=== PATIENT | female | born 1940 | race Caucasian/White ===

== ENCOUNTER 2023-01-13 12:01 | Outpatient (OUT) | payer MEDICARE, OTHER, SELFPAY | END 2023-01-13 12:02 | disposition home or self-care (01) | LOC: LAB 12:05 | PROVIDERS: PCP Family Medicine; Visit Provider Family Medicine | DX: E55.9 Vitamin D deficiency, unspecified (principal) | CPT/HCPCS: 36415; 82306 ==

== ENCOUNTER 2023-02-21 13:45 | Outpatient (RCR) | payer MEDICARE, OTHER, SELFPAY | END 2023-03-26 16:31 | disposition home or self-care (01) | LOC: PT 13:45 | PROVIDERS: PCP Family Medicine; Visit Provider Orthopaedic Surgery Orthopaedic Trauma | DX: M25.552 Pain in left hip (principal); S76.012D Strain of muscle, fascia and tendon of left hip, subsequent encounter; M48.061 Spinal stenosis, lumbar region without neurogenic claudication | CPT/HCPCS: 20561; 97012; 97110; 97140; 97161 ==

== ENCOUNTER 2023-03-03 16:08 | Outpatient (OUT) | payer MEDICARE, OTHER, SELFPAY ==
[2023-03-03 16:46] LABS: Basophils Percent Auto 0.4 % (0.2-2.0); Eosinophils Absolute Auto 0.3 10^3/uL (0.0-0.7); Eosinophils Percent Auto 4.5 % (0.9-7.0); Hematocrit 38.1 % (36.0-48.0); Hemoglobin 12.6 g/dL (12.0-16.0); Immature Granulocytes Abs Auto 0.01 10^3/uL (0.00-0.03); Immature Granulocytes Pct Auto 0.2 % (0.0-0.5); Lymphocytes Absolute Auto 1.3 10^3/uL (1.2-3.8); Mean Corpuscular HGB Conc 33.1 g/dL (29.9-35.2); Mean Corpuscular Hemoglobin 29.9 pg (26.7-34.0); Mean Corpuscular Volume 90.3 fL (81.0-99.0); Mean Platelet Volume 10.2 fL (9.5-13.5); Monocytes Absolute Auto 0.4 10^3/uL (0.3-0.8); Monocytes Percent Auto 7.7 % (1.7-12.0); Neutrophils Absolute Auto 3.6 10^3/uL (1.4-6.5); Neutrophils Percent Auto 64.2 % (43.0-75.0); Platelet Count 180 10^3/uL (150-450); Red Blood Count 4.22 10^6/uL (4.20-5.40); Red Cell Distribution Width 12.4 % (11.0-15.0); White Blood Count 5.6 10^3/uL (4.0-11.0)
[2023-03-03 17:19] LABS: Anion Gap 10.4; BUN Creatinine Ratio 20.7; Calcium 10.3 mg/dL (8.5-10.1); Carbon Dioxide 28.5 mmol/L (21.0-32.0); Chloride 106 mmol/L (98-107); Estimated GFR (African America >60 (>=60); Estimated GFR (Non-African Ame >60 (>=60); Glucose 107 mg/dL (74-106); Potassium 3.9 mmol/L (3.5-5.1); Sodium 141 mmol/L (136-145); Thyroid Stimulating Hormone 2.583 uIU/mL (0.358-3.740)
[2023-03-03 17:40] LABS: Free T4 0.95 ng/dL (0.76-1.46)
== END 2023-03-03 16:09 | disposition home or self-care (01) ==
LOC: LAB 16:11
PROVIDERS: PCP Family Medicine; Visit Provider Family Medicine
DX: R53.82 Chronic fatigue, unspecified (principal); T14.8XXA Other injury of unspecified body region, initial encounter; E03.9 Hypothyroidism, unspecified
CPT/HCPCS: 36415; 80048; 84439; 84443; 85025

== ENCOUNTER 2023-03-31 15:04 | Outpatient (OUT) | payer MEDICARE, OTHER, SELFPAY ==
[2023-03-31 16:15] LABS: Calcium 9.8 mg/dL (8.5-10.1)
[2023-04-02 12:10] LABS: PTH, Intact 33 pg/mL (15-65)
== END 2023-03-31 15:05 | disposition home or self-care (01) ==
PROVIDERS: PCP Family Medicine; Visit Provider Family Medicine
DX: E83.52 Hypercalcemia (principal)
CPT/HCPCS: 36415; 82310; 83970

== ENCOUNTER 2023-06-16 15:01 | Outpatient (RCR) | payer MEDICARE, OTHER, SELFPAY | END 2023-07-11 16:05 | disposition home or self-care (01) | LOC: PT 15:01 | PROVIDERS: PCP Family Medicine; Visit Provider Orthopaedic Surgery Orthopaedic Trauma | DX: M25.552 Pain in left hip (principal); S76.012D Strain of muscle, fascia and tendon of left hip, subsequent encounter; M54.50 Low back pain, unspecified | CPT/HCPCS: 97035; 97140; 97161 ==

== ENCOUNTER 2023-07-02 14:33 | Outpatient (OUT) | payer MEDICARE, OTHER, SELFPAY ==
--- OUTSIDE RECORDS SUMMARY | 2023-07-02 14:42 | XMS_ITS | CCD ---
Author Name Unknown Address [address] [place] [address] Organization [facility] Care Team Providers Care Pst Specialist Name Role Phone Jessica Maxwell MD Primary Care Provider Jayant Ambrocio Unavailable Jeb Salas Unavailable PROVIDER, UNKNOWN Admitting Unavailable PROVIDER, UNKNOWN Attending Unavailable Jessica Maxwell MD Primary Care Provider MITALI NARAYAN Consulting Unavailable JESSICA MAXWELL Primary Care Unavailable MITALI NARAYAN Admitting Unavailable MITALI NARAYAN Attending Unavailable MITALI NARAYAN MD Consulting Unavailable EDIN ELDER Attending Unavailable VIVIAN DAMON Referring Unavailable JESSICA MAXWELL Primary Care Unavailable Jessica Maxwell Unavailable DO Jeb Salas Attending Provider [phone] Jeb Salas Admitting Unavailable Jeb Salas Attending Unavailable ALISSA, DR JESSICA Hale Admitting Unavailable ALISSA, DR JESSICA Hale Attending Unavailable ALISSA, DR JESSICA Hale Primary Care Unavailable ALISSA, DR JESSICA Hale Admitting Unavailable ALISSA, DR JESSICA Hale Primary Care Unavailable ALISSA, DR JESSICA Hale Attending Unavailable JEB SALAS Admitting Unavailable JEB SALAS Attending Unavailable ALISSA, DR JESSICA Hale Primary Care Unavailable SHRUTHI ANTON Admitting Unavailable MR JACE MINOR Consulting Unavailable ALISSA, DR JESSICA Hale Primary Care Unavailable SHRUTHI ANTON Attending Unavailable SHRUTHI ANTON Consulting Unavailable MANUEL KOCH Consulting Unavailable SHAHZAD TOMAS Consulting Unavailable FELIPA HOPPER Consulting Unavailable ALISSA, DR JESSICA Hale Attending Unavailable YOBANY, DR MANUEL Lagos Consulting Unavailable ALISSA, DR JESSICA Hale Primary Care Unavailable DR JESSICA MAXWELL Admitting Unavailable DR JESSICA MAXWELL Consulting Unavailable ALISSA, DR JESSICA Hale Admitting Unavailable DR JESSICA MAXWELL Attending Unavailable DR JESSICA MAXWELL Consulting Unavailable DR JESSICA MAXWELL Primary Care Unavailable DR JAYANT AMBROCIO Admitting Unavailable DR JESSICA MAXWELL Primary Care Unavailable DR JAYANT AMBROCIO Attending Unavailable Allergies Allergy Classification Reported Allergen(s) Allergy Type Date of Onset Reaction(s) Facility (19 sources) Sulfonamides (Antibiotic) Drug Intolerance 04-18-20 14 [facility] (1 source) sulfaSALAzine Drug Allergy Unknown [employer] Other (1 source) Sulfonamides (Antibiotic) Propensity to adverse reactions to drug 04-14-20 22 [facility] (2 sources) Sulfonamides (Antibiotic) Drug allergy (disorder) 12-15-19 13 [facility] (11 sources) celecoxib Drug Allergy 05-24-20 13 Unknown [employer] Other (1 source) patient allergy list reviewed by nurse or physicia Propensity to adverse reactions 02-03-20 19 Comment:Done [employer] Other (1 source) Allergies Reconciled Propensity to adverse reactions Unknown [employer] Other Medications Current Medications Medication Drug Class(es) Dates Sig (Normalized) Sig (Original) acetaminophen 500 mg oral tablet (5 sources) Start: 04-14-2022 acetaminophen (TYLENOL) tablet 1,000 mg take 1 tablet by mouth every six hours Tylenol Extra Strength 500 MG 1 tablet as needed Orally every 6 hrs Not-Taking/PRN clonazePAM 0.5 mg oral tablet (20 sources) Benzodiazepine Start: 06-16-2023 take 1 tablet by mouth twice daily as needed clonazePAM 0.5 MG TAKE 1 TABLET BY MOUTH TWICE A DAY NEEDED for Jun, Active Start: 02-18-2023 take 1 tablet by corby twice daily as needed clonazePAM 0.5 MG TAKE 1 TABLET BY MOUTH TWICE A DAY NEEDED for Feb, Active Start: 10-16-2022 take 1 tablet by corby th twice daily as needed clonazePAM 0.5 MG TAKE 1 TABLET BY MOUTH TWICE A DAY NEEDED for October, Active Start: 09-05-2022 take 1 tablet by corby twice daily as needed clonazePAM 0.5 MG TAKE 1 TABLET BY MOUTH TWICE A DAY NEEDED for 30 30 Aug, 2022 Active Start: 07-29-2022 clonazePAM 0.5 MG TAKE 1 TABLET BY MOUTH TWICE A DAY NEEDED FOR 30 DAYS for 30 20 Jul, 2022 Active Start: 04-15-2022 take 0.25 mg by mout h three times daily as needed 0.25 mg, Oral, 3 TIMES DAILY PRN, Starting on 04/15/22 at 0013, Until Discontinued, Anxiety, facial tic Start: 01-24-2020 take 1 tablet by corby th every twelve hours as needed clonazePAM (KLONOPIN) 0.5 mg tablet Take 0.5 mg by mouth twice daily as needed. 0 01/24/2020 Active take 0.25 mg by mout h three times daily as needed clonazePAM (KLONOPIN) 0.5 MG tablet Take 0.25 mg by mouth 3 times daily as needed. 0 Active take 1 tablet by corby th every twenty-four hours clonazePAM 0.5 MG 1 tablet at bedtime Orally Once a day Active Comment on above: Take 0.5 mg by mouth twice daily as needed. clopidogrel 75 mg oral tablet (8 sources) P2Y12 Platelet Inhibitor Start: 04-29-2022 take 1 tablet by mouth once daily clopidogrel (PLAVIX) 75 MG tablet Take 1 tablet by mouth daily Hold plavix x 2 weeks . Follow up with primary providers 30 tablet 3 04/29/2022 Active End: 04-15-2022 take 1 tablet by mouth every twenty-four hours Clopidogrel Bisulfate 75 MG 1 tablet Orally Once a day Active hydrocortisone 25 mg/ml topi raisa cream (8 sources) Corticosteroid Hydrocortisone ( Perianal) 2.5 % APPLY TO AFFECTED AREA 1-2 TIMES DAILY NEEDED for 15 Active Hydrocortisone ( Perianal) 2.5 % APPLY TO AFFECTED AREA 1-2 TIMES DAILY NEEDED for 15 Active ipratropium bromide 0.042 mg/actuat metered dose nasal spray (20 sources) Anticholinergic take 2 spray(s) nasal route once daily Ipratropium [place] 0.06 % 2 sprays in each nostril Nasally Once a Day for 30 days Active take 2 spray(s) nasal route once daily Ipratropium [place] 0.06 % 2 sprays in each nostril Nasally Once a Day for 30 days Active take 2 spray(s) nasa l route three times daily Ipratropium [place] 0.06 % 2 sprays in e ach nostril Nasally Three times a day Active take 2 spray(s) nasa l route four times daily ipratropium (ATROVENT) 0.06 % nasal spra y 2 sprays by Each Nostril route 4 times daily 0 Active ipratropium brom alex (ATROVENT) 42 mcg (0.06 %) nasal spray Use 2 Sprays in the nose once daily. 0 Active Comment on above: Use 2 Sprays in the nose once daily. meloxicam 15 mg oral tablet (6 sources) Nonsteroidal Anti-inflammatory Drug take 1 tablet by mouth every twenty-four hours Meloxicam 15 MG 1 tablet Orally Once a day for 30 days Active metoprolol tartrate 25 mg oral tablet (20 sources) beta-Adrenergic Yuki Start: 2 take 25 mg by mouth twice daily 25 mg, Oral, 2 TIMES DAILY, First dose on Fri04/16/22 at 0900, Until Discontinued Start: 10-07-2018 metoprolol tar trate, short acting, (LOPRESSOR) 25 mg tablet Take 12.5 mg by mouth twice daily. 0 10/07/2018 Active take 1 tablet by corby th every twelve hours Metoprolol Tartrate 25 MG 1 tablet with food Orally Twice a day Active Comment on above: Take 12.5 mg by mout h twice daily. ondansetron (ZOFRAN-ODT) disintegrating tablet 4 mg (1 source) Start: 04-14-2022 ondansetron (ZOFRAN-ODT) disintegrating tablet 4 mg polyethylene glycol 3350 [id number] mg powder for oral solution (1 source) Osmotic Laxative Start: 04-14-2022 polyethylene glycol (GLYCOLAX) packet 17 g sennosides, mcc 8.6 mg oral tablet (1 source) Start: 04-14-2022 senna (SENOKOT) tablet 8.6 mg terbinafine (6 sources) Allylamine Antifungal Terbinafin e Active Completed/Discontinued Medications Medication Drug Class(es) Dates Sig (Normalized) Sig (Original) ALPRAZolam 0.25 mg oral tablet (1 source) Benzodiazepine take 1 tablet by mouth three times daily ALPRAZolam (XANAX) 0.25 mg tablet Take 0.25 mg by mouth three times daily. 0 Active Comment on above: Take 0.25 mg by mout h three times daily. aspirin 81 mg delayed release oral tablet (20 sources) Platelet Aggregation Inhibitor, Nonsteroidal Anti-inflammatory Drug Start: 10-05-2021 take 1 tablet by mouth every twelve hours Aspirin 81 MG 1 tablet Orally BID for 14 days Sep, Not-Taking/PRN take 1 tablet by mouth once chelsea y aspirin, enteric coated (ASPIRIN, ENTERIC COATED) 81 mg EC tablet Take 81 mg by mouth once daily. 0 Active Comment on above: Take 81 mg by mouth once daily. bisacodyl 5 mg delayed release oral tablet (1 source) Stimulant Laxative Start: 01-13-20 bisacodyl EC (DULCOLAX) 5 mg EC tablet as directed. 0 01/13/2020 Active Comment on above: as directed. calcium carbonate 1250 mg / cholecalciferol 200 unt oral tablet (1 source) Vitamin D take 2 tablets by mouth twice daily [id number] tamin D3 500 mg(1,250mg) -200 unit per tablet Take 2 tablets by mouth twice daily. 0 Active Comment on above: Take 2 tablets by mo [facility] twice daily. donepezil hydrochloride 10 mg oral tablet (1 source) Start: 10-18-19 take 1 tablet by mouth once daily donepezil (ARICEPT) 10 mg tablet Take 10 mg by mouth once daily. 0 10/18/2019 Active Comment on above: Take 10 mg by mouth once daily. ferrous sulfate 325 mg oral tablet (1 source) take 1 tablet by mouth twice daily ferrous sulfate 325 mg (65 mg iron) tablet Take 325 mg by mouth twice daily. 0 Active Comment on above: Take 325 mg by mouth twice daily. iopamidol (ISOVUE-370) 76 % injection 130 mL (1 source) Start: 04-14-20 End: 04-14-20 iopamidol (ISOVUE-370) 76 % injection 130 mL levothyroxine sodium 0.05 mg oral tablet (20 sources) l-Thyroxine Start: 04-15-20 take 50 ug by mouth once daily 50 mcg, Oral, DAILY, First dose on Fri04/15/22 at 0700, Until Discontinued Tube feeding (TF) interaction, obtain physician order to manage, recommend holding TF for 30 minutes before and after dose. take 1 tablet by corby th once daily in the morning Levothyroxine Sodium 50 MCG 1 tablet in the morning on an empty stomach Orally Once a day Active Comment on above: Take 50 mcg by mouth daily before breakfast. liothyronine sodium 0.005 mg oral tablet (20 sources) l-Triiodothyronine Start: 2 take 5 ug by mouth once daily 5 mcg, Oral, DAILY, First dose on Fri04/15/22 at 0900, Until Discontinued take 1 tablet by corby every twenty-four hours Liothyronine Sodium 5 MCG 1 tablet on an empty stomach Orally Once a day Active OTC PRODUCT (2 sources) OTC PRODUCT Kenz en BDZ Support Strength and Density 2 tablets once a day at bedtime 0 Active OTC PRODUCT 1 ta blet three times daily. Strophantil 0 Active Comment on above: Kenzen BDZ Support S trength and Density 2 tablets once a day at bedtime 1 tablet three times daily. Strophantil pantoprazole 40 mg delayed release oral tablet (1 source) Proton Pump Inhibitor take 1 tablet by mouth once daily pantoprazole DR (PROTONIX) 40 mg tablet Take 40 mg by mouth once daily. 0 Active Comment on above: Take 40 mg by mouth once daily. 1000 ml sodium chloride 9 mg/ml injection (4 sources) Start: 2 sodium chloride flush 0.9 % injection 5-40 mL Start: 04-14-2022 End: 04-15-2022 0.9 % sodium chloride infusi on spironolactone 25 mg oral tablet (20 sources) Aldosterone Antagonist Start: 11-17-2019 take 25 mg by mouth once daily 25 mg, Oral, DAILY, First dose on Fri04/15/22 at 0900, Until Discontinued Comment on above: Take 25 mg by mouth once daily. Tylenol Extra Strength 500 MG (15 sources) take 1 tablet by mouth every six hours as needed Tylenol Extra Strength 500 MG 1 tablet as needed Orally every 6 hrs Not-Taking take 1 tablet by corby th every six hours as needed Tylenol Extra Strength 500 MG 1 tablet a s needed Orally every 6 hrs Active warfarin sodium 10 mg oral tablet (1 source) Vitamin K Antagonist Start: 11-11-2019 warfarin (COUMADIN) 10 mg tablet 10mg alternating with 15mg nightly 0 11/11/2019 Active Comment on above: 10mg alternating wit h 15mg nightly Problems Active Problems Problem Classification Problem Date Documented Da te Episodic/Chronic Abdominal pain (2 sources) Generalized abdominal pain; 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: [Generalized abdominal pain] Onset: 5 Episodic Acute cerebrovascular disease (3 sources) Hematoma of subdural space of neuraxis; 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: [Subdural hematoma] Onset: 2 Chronic Anxiety disorders (3 sources) Generalized anxiety disorder; 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: [Generalized anxiety disorder] Onset: 5 Chronic Cardiac dysrhythmias (4 sources) Atrial fibrillation; 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: [Unspecified atrial fibrillation] Onset: 9 11-18-2019 Chronic Coagulation and hemorrhagic disorders (1 source) Spontaneous ecchymosis; 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: [Spontaneous ecchymoses] Episodic Complications of surgical procedures or medical care (1 source) Postoperative hypothyroidism; 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: [Postprocedural hypothyroidism] Onset: 5 Chronic Deficiency and other anemia (1 source) Iron deficiency anemia due to blood loss; 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: [Iron deficiency anemia secondary to blood loss (chronic)] Onset: 0 01-13-2020 Chronic Delirium, dementia, and amnestic and other cognitive disorders (1 source) Unspecified dementia without behavioral disturbance; 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: [UNSP GABRIELLA UNS SEV W/O DSTRB ANXTY] Onset: 2 Chronic E Codes: Natural/environment (1 source) Dog bite; 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: [Bitten by dog, initial encounter] Episodic Essential hypertension (20 sources) Essential hypertension; 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: [Essential (primary) hypertension] Onset: 4 Chronic Heart valve disorders (3 sources) Nonrheumatic mitral (valve) insufficiency; 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: [Rheumatic disease of mitral valve] Onset: 9 Chronic Hemorrhoids (1 source) Thrombosed hemorrhoids; 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: [Perianal venous thrombosis] Episodic Malaise and fatigue (20 sources) Fatigue; 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: [Chronic fatigue, unspecified] Chronic Malaise and fatigue (5 sources) Other fatigue; 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: [Fatigue] Onset: 2 Episodic Nonspecific chest pain (2 sources) Chest pain; 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: [Chest pain, unspecified] Onset: 8 Episodic Nutritional deficiencies (18 sources) Vitamin D deficiency, unspecified; 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: [Vitamin D deficiency] Onset: 2 Chronic Osteoarthritis (20 sources) Osteoarthritis of right hip joint; 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: [Unilateral primary osteoarthritis, right hip] Chronic Osteoporosis (1 source) Primary osteoporosis; 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: [Age-related osteoporosis without current pathological fracture] Chronic Other connective tissue disease (1 source) Neuralgia; 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: [Neuralgia and neuritis, unspecified] Episodic Other connective tissue disease (1 source) Pain in limb; 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: [Pain in left lower leg] Episodic Other connective tissue disease (1 source) Myalgia, other site Episodic Other ear and sense organ disorders (1 source) Impacted cerumen; 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: [Impacted cerumen, unspecified ear] Episodic Other female genital disorders (1 source) Noninflammatory disorder of the vagina; 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: [Other specified noninflammatory disorders of vagina] Episodic Other female genital disorders (1 source) Hypertrophy of uterus; 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: [Hypertrophy of uterus] Episodic Other female genital disorders (1 source) Disorder of female genital organs; 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: [Unspecified condition associated with female genital organs and menstrual cycle] Episodic Other gastrointestinal disorders (1 source) Irritable bowel syndrome with diarrhea; 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: [Irritable bowel syndrome with diarrhea] Onset: 7 Chronic Other hereditary and degenerative nervous system conditions (1 source) Drug-induced tardive dystonia; 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: [Drug induced subacute dyskinesia] Episodic Other inflammatory condition of skin (1 source) Itching of skin; 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: [Pruritus, unspecified] Episodic Other injuries and conditions due to external causes (1 source) Other injury of unspecified body region, initial encounter Episodic Other liver diseases (1 source) Large liver; 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: [Hepatomegaly, not elsewhere classified] Episodic Other non-traumatic joint disorders (6 sources) Pain in left hip; 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: [PAIN IN LEFT HIP] Onset: 3 Episodic Other non-traumatic joint disorders (1 source) Arthralgia of the lower leg; 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: [Pain in right knee] Episodic Other non-traumatic joint disorders (1 source) Pain in right hip joint; 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: [Pain in right hip] Episodic Other nutritional; endocrine; and metabolic disorders (2 sources) Hypercalcemia; 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: [HYPERCALCEMIA] Onset: 2 Chronic Other nutritional; endocrine; and metabolic disorders (10 sources) Hypercalcemia; 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: [Hypercalcemia] Onset: 7 Chronic Other screening for suspected conditions (not mental disorders or infectious disease) (1 source) Encounter for screening mammogram for malignant neoplasm of breast Episodic Other upper respiratory disease (1 source) Other specified disorders of nose and nasal sinuses; 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: [Other specified disorders of nose and nasal sinuses] Episodic Residual codes; unclassified (1 source) Family history of malignant neoplasm of gastrointestinal tract; 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: [Family history of malignant neoplasm of digestive organs] Episodic Screening and history of mental health and substance abuse codes (1 source) Encounter for screening examination for other mental health and behavioral disorders; 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: [Encounter for screening examination for other mental health and behavioral disorders] Episodic Skin and subcutaneous tissue infections (1 source) Cellulitis and abscess of hand excluding digits; 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: [Cellulitis and abscess of hand, except fingers and thumb] Episodic Spondylosis; intervertebral disc disorders; other back problems (1 source) Other intervertebral disc displacement, lumbosacral region; 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: [OTH IV DISC DISPLACEMENT LS REGION] Onset: 3 Chronic Spondylosis; intervertebral disc disorders; other back problems (8 sources) Sciatica, left side; 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: [Cervicalgia] Onset: 5 Episodic Sprains and strains (1 source) Strain of muscle, fascia and tendon of left hip, subsequent encounter Episodic Superficial injury; contusion (2 sources) Contusion of other part of head, initial encounter; 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: [Contusion of hand] Onset: 2 Episodic Thyroid disorders (13 sources) Hypothyroidism, unspecified; 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: [Hypothyroidism] Onset: 2 Chronic Transient cerebral ischemia (1 source) Transient cerebral ischemia; 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: [Unspecified transient cerebral ischemia] Onset: 9 Chronic Unclassified (3 sources) Traumatic subdural hemorrhage with loss of consciousness status unknown, initial encounter; 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: [Traumatic subdural hemorrhage with loss of consciousness status unknown, initial encounter] Onset: 2 Unclassified (1 source) Pain in left hip; 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: [Pain in left hip] Onset: 3 Unclassified (1 source) LOW BACK PAIN, UNSPECIFIED; 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: [LOW BACK PAIN, UNSPECIFIED] Onset: 3 Unclassified (1 source) CONTACT W/AND (SUSP) EXPOS COVID-19; 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: [CONTACT W/AND (SUSP) EXPOS COVID-19] Onset: 2 Viral infection (1 source) Disease caused by 2019-nCoV; 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: [COVID-19] Past or Other Problems Problem Classification Problem Date Documented Da te Episodic/Chronic Allergic reactions (1 source) Allergic contact dermatitis; 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: [Allergic contact dermatitis, unspecified cause] Onset: 7 Episodic Diabetes mellitus without complication (1 source) Hyperglycemia; 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: [Hyperglycemia, unspecified] Onset: 9 Episodic E Codes: Fall (1 source) Fall on same level from slipping, tripping and stumbling with subsequent striking against other object, initial encounter; 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: [FALL SAME LVL SLIP STRK OTH OBJ INT] Onset: 2 Episodic Headache; including migraine (1 source) Headache; 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: [Headache, unspecified] Onset: 5 Episodic Immunizations and screening for infectious disease (1 source) Encounter for immunization; 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: [ENCOUNTER FOR IMMUNIZATION] Onset: 2 Episodic Inflammatory diseases of female pelvic organs (1 source) Acute vaginitis; 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: [Acute vaginitis] Onset: 3 Episodic Intracranial injury (1 source) Traumatic subdural hemorrhage with loss of consciousness of 30 minutes or less, initial encounter; 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: [TRAUM SUBDURAL HEM LOC 30 MN/< INIT] Onset: 2 Episodic Open wounds of head; neck; and trunk (1 source) Laceration without foreign body of oral cavity, initial encounter; 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: [LACERATION W/O FB ORAL CAV INIT ENC] Onset: 2 Episodic Other aftercare (1 source) Anticoagulant effect; 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: [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] Onset: 0 11-18-2019 Episodic Other aftercare (1 source) [facility] (current) use of antithrombotics/antipl atelets; 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: [[facility] ANTITHROMBOT/ANTIPLATL ETS] Onset: 2 Episodic Other aftercare (1 source) Other group home (current) drug therapy; 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: [OTH [facility] CURRENT DRUG THERAPY] Onset: 2 Episodic Other circulatory disease (1 source) History of transient ischemic attack; 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: [Personal history of transient ischemic attack (TIA), and cerebral infarction without residual deficits] Onset: 0 11-18-2019 Episodic Other connective tissue disease (1 source) Pain in left lower leg; 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: [PAIN IN LEFT LOWER LEG] Onset: 2 Episodic Other female genital disorders (1 source) Dyspareunia; 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: [Unspecified dyspareunia] Resolved: 9 Chronic Other gastrointestinal disorders (1 source) Flatulence, eructation and gas pain; 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: [Abdominal distension (gaseous)] Onset: 6 Episodic Other injuries and conditions due to external causes (3 sources) Unspecified injury of head, initial encounter; 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: [UNSPECIFIED INJURY HEAD INITIAL ENC] Onset: 2 Episodic Other injuries and conditions due to external causes (1 source) Other specified injuries of head, initial encounter; 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: [OTH SPEC INJURIES HEAD INITIAL ENC] Onset: 2 Episodic Other lower respiratory disease (2 sources) Dyspnea; 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: [Other forms of dyspnea] Onset: 3 Episodic Other lower respiratory disease (1 source) Cough; 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: [Cough] Onset: 4 Episodic Other non-traumatic joint disorders (1 source) Pain in wrist; 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: [Pain in unspecified wrist] Onset: 5 Episodic Other skin disorders (1 source) Disorder of skin and/or subcutaneous tissue; 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: [Disorder of the skin and subcutaneous tissue, unspecified] Onset: 9 Episodic Other upper respiratory infections (3 sources) Acute upper respiratory infection; 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: [Acute upper respiratory infections of unspecified site] Onset: 4 Episodic Phlebitis; thrombophlebitis and thromboembolism (2 sources) Phlebitis and thrombophlebitis of superficial vessels of left lower extremity; 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: [Embolism and thrombosis of superficial veins of left lower extremity] Onset: 2 Resolved: 2 Episodic Residual codes; unclassified (1 source) History of repair of mitral valve; 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: [Other specified postprocedural states] Onset: 0 11-18-2019 Episodic Residual codes; unclassified (1 source) History of tricuspid valve repair; 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: [Other specified postprocedural states] Onset: 0 11-18-2019 Episodic Results Test Name Value Interpretation Reference Range Facility XR femur LT 2V*on 08-21-2022 XR femur LT 2V* [facility] [address] [place] [address] XRay Report Signed Patient: Ayana Alves MR#: [id number] : 1940 Acct:[id number] Age/Sex: 82 / F ADM Date: 08/21/22 [place] [facility] [place] Type: [facility] Attending Dr: Jeb Salas DO Copies to: Jeb Salas DO Ordering Provider: Jeb Salas DO Date of Service: 08/21/22 XR/XR femur LT 2V*: PAIN 2 views LEFTfemur plain film COMPARISON: None HISTORY: LEFT anterior mid back pain for one month ACUTE FINDINGS:None DEGENERATIVE CHANGE:Spurring of the hip joints. Adequate joint space. Spurring of the greater trochanter. Chondrocalcinosis of menisci. SOFT TISSUE FINDINGS:Unremarkabl e JOINT EFFUSION:None POSTOP CHANGES:None BONE MINERALIZATION:Adequ ate Calcified fibroid. XR/XR femur LT 2V* IMPRESSION: Mild LEFT hip degeneration. greater trochanter spurring. Chondrocalcinosis of menisci. Impression dictated by: Pako Sidhu M.D.08/21/2022 3:22 PM Dictation Location: [place] [address] Transcribed By: [facility] 08/21/22 1522 Dictated By: Pako Sidhu DO 08/21/22 1519 Signed By: 08/21/22 1522 Normal [facility] XR femur LT 2V* [facility] [place] Other XR femur LT 2V* [facility] Main [facility] [place] Other XR femur LT 2V* [address] [facility] [place] Other XR femur LT 2V* [place] [address] [facility] [employer] Other XR femur LT 2V* XRay Report [facility] [employer] Other XR femur LT 2V* Signed [employer] Other XR femur LT 2V* Patient: Ayana Alves MR#: [id number] [employer] Other XR femur LT 2V* 484 [employer] Other XR femur LT 2V* : 1940 Acct:[id number] [employer] Other XR femur LT 2V* Age/Sex: 82 / F ADM Date: 08/21/22 [employer] Other XR femur LT 2V* [place] [facility] Type[facility] [employer] Other XR femur LT 2V* Attending Dr: Jeb Salas DO [employer] Other XR femur LT 2V* Copies to: Jeb Salas DO [employer] Other XR femur LT 2V* Ordering Provider: Jeb Salas DO [employer] Other XR femur LT 2V* Date of Service: 08/21/22 [employer] Other XR femur LT 2V* XR/XR femur LT 2V*: PAIN [employer] Other XR femur LT 2V* 2 views LEFTfemur plain film [employer] Other XR femur LT 2V* COMPARISON: None [employer] Other XR femur LT 2V* HISTORY: LEFT anterior mid back pain for one month [employer] Other XR femur LT 2V* ACUTE FINDINGS:None [employer] Other XR femur LT 2V* DEGENERATIVE CHANGE:Spurring of the hip joints. Adequate joint space. Spurring of the greater [employer] Other XR femur LT 2V* trochanter. Chondrocalcinosis of menisci. [employer] Other XR femur LT 2V* SOFT TISSUE FINDINGS:Unremarkabl e [employer] Other XR femur LT 2V* JOINT EFFUSION:None [employer] Other XR femur LT 2V* POSTOP CHANGES:None [employer] Other XR femur LT 2V* BONE MINERALIZATION:Adequ ate [employer] Other XR femur LT 2V* Calcified fibroid. [email or web address] Other XR femur LT 2V* XR/XR femur LT 2V* [employer] Other XR femur LT 2V* IMPRESSION: Mild LEFT hip degeneration. greater trochanter spurring. Chondrocalcinosis of menisci. [employer] Other XR femur LT 2V* Impression dictated by: Pako Sidhu M.D.08/21/2022 3:22 PM [employer] Other XR femur LT 2V* Dictation Location: [place] [address] [employer] Other XR femur LT 2V* Transcribed By: PWS 08/21/22 [facility] [employer] Other XR femur LT 2V* Dictated By: Pako Sidhu DO 08/21/22 [facility] [employer] Other XR femur LT 2V* Signed By: [employer] Other XR femur LT 2V* 08/21/22 [facility] [employer] Other XR hip LT min 2V(w/wo pelvis )*on 08-21-2022 XR hip LT min 2V(w/wo pelvis)* [facility] Main [place] [address] [place] [address] XRay Report Signed Patient: Ayana Alves MR#: [id number] : 1940 Acct:[id number] Age/Sex: 82 / F ADM Date: 08/21/22 [place] [facility] [place]: Type: [facility] Attending Dr: Jeb Salas DO Copies to: Jeb Salas DO Ordering Provider: Jeb Salas DO Date of Service: 08/21/22 XR/XR hip LT min 2V(w/wo pelvis)*: Acute pain of left hip 2 views LEFT hip single view pelvis plain film COMPARISON:None HISTORY:LEFT anterior thigh pain for months. ACUTE FINDINGS:None DEGENERATIVE CHANGE:Adequate hip joint space. Spurring of the greater trochanter. SOFT TISSUE FINDINGS:Unremarkabl e JOINT EFFUSION:None POSTOP CHANGES:None BONY MINERALIZATION:Adequ ate Degenerative calcified fibroid. Lower lumbar fixation hardware. XR/XR hip LT min 2V(w/wo pelvis)* IMPRESSION:Unremarka ble LEFT hip. The greater trochanter spurring. Impression dictated by: Pako Sidhu M.D.08/21/2022 3:24 PM Dictation Location: [place] [address] Transcribed By: [facility] 08/21/22 1524 Dictated By: Pako Sidhu DO 08/21/22 1522 Signed By: 08/21/22 1524 [facility] XR hip LT min 2V(w/wo pelvis)* XR/XR hip LT min 2V(w/wo pelvis)*: Acute pain of left hip [employer] Other XR hip LT min 2V(w/wo pelvis)* 2 views LEFT hip single view pelvis plain film [employer] Other XR hip LT min 2V(w/wo pelvis)* HISTORY:LEFT anterior thigh pain for months. [employer] Other XR hip LT min 2V(w/wo pelvis)* DEGENERATIVE CHANGE:Adequate hip joint space. Spurring of the greater trochanter. [employer] Other XR hip LT min 2V(w/wo pelvis)* BONY MINERALIZATION:Adequ ate [employer] Other XR hip LT min 2V(w/wo pelvis)* Degenerative calcified fibroid. Lower lumbar fixation hardware. [employer] Other XR hip LT min 2V(w/wo pelvis)* XR/XR hip LT min 2V(w/wo pelvis)* [employer] Other XR hip LT min 2V(w/wo pelvis)* IMPRESSION:Unremarka ble LEFT hip. The greater trochanter spurring. [employer] Other XR hip LT min 2V(w/wo pelvis)* Impression dictated by: Pako Sidhu M.D.08/21/2022 3:24 PM [employer] Other XR hip LT min 2V(w/wo pelvis)* Transcribed By: PWS 08/21/22 [facility] [employer] Other XR hip LT min 2V(w/wo pelvis)* Dictated By: Pako Sidhu DO 08/21/22 [facility] [employer] Other XR hip LT min 2V(w/wo pelvis)* 08/21/22 [facility] [employer] Other CT HEAD WO CONTRASTon 2021 CT HEAD WO CONTRAST EXAMINATION: CT OF THE HEAD WITHOUT CONTRAST 04/23/2022 3:06 pm TECHNIQUE: CT of the head was performed without the administration of intravenous contrast. Automated exposure control, iterative reconstruction, and/or weight based adjustment of the mA/kV was utilized to reduce the radiation dose to as low as reasonably achievable. COMPARISON: CT brain performed 04/14/2022. HISTORY: ORDERING SYSTEM PROVIDED HISTORY: Subdural hematoma TECHNOLOGIST PROVIDED HISTORY: Reason for Exam: pt stated headache ,hx of fall week ago , subdural hematoma Additional signs and symptoms: pt stated was life flighted to [facility] from [place] [facility] History: CT done at [place] FINDINGS: BRAIN/VENTRICLES: There is a small amount of subdural hemorrhagic products adjacent to the left temporal lobe measuring 4 mm. There is no mass effect or midline shift. There is satisfactory overall larson-white matter differentiation. The ventricular structures are symmetric. The infratentorial structures are unremarkable. ORBITS: The visualized portion of the orbits demonstrate no acute abnormality. SINUSES: The visualized paranasal sinuses and mastoid air cells demonstrate no acute abnormality. SOFT TISSUES/SKULL: No acute abnormality of the visualized skull or soft tissues. IMPRESSION: Small amount of subdural hemorrhagic products adjacent to the left temporal lobe measuring 4 mm. This is similar in size although in a different location adjacent to the left cerebral hemisphere likely related to redistribution of the blood products. Interpreted by: Don Rahman MD Signed by: Don Rahman MD 04/24/22 Final result Normal [facility] Basic Metab w/rfx MGon 04-15 Anion gap [Moles/Vol] 9 mmol/L Normal 9-17 [facility] Comment on above: Performed By: #### B MPX, CDP #### [facility] [employer] [address] [place] [address] Procurement Intern: Yordan Lr MD Performed By: #### C DP, BMPX ####[facility] [address] [place] [address] Lab Director: Yordan Lr MD Calcium [Mass/Vol] 9.6 mg/dL Normal 8.6-10.4 [facility] Comment on above: Performed By: #### B MPX, CDP #### [facility] [employer] [address] [place] [address] Procurement Intern: Yordan Lr MD Performed By: #### C DP, BMPX ####[facility] [place] [address] Lab Director: Yordan Lr MD Chloride [Moles/Vol] 107 mmol/L Normal 98-[address] [facility] Comment on above: Performed By: #### B MPX, CDP #### [facility] [employer] [address] [place] [address] Procurement Intern: Yordan Lr MD Performed By: #### C DP, BMPX ####[address] [address] Lab Director: Yordan Lr MD CO2 [Moles/Vol] 22 mmol/L Normal 20-31 [facility] Comment on above: Performed By: #### B MPX, CDP #### [address] [address] Procurement Intern: Yordan Lr MD Performed By: #### C DP, BMPX ####[address] [phone] Director: Yordan Lr MD Creatinine [Mass/Vol] 0.74 mg/dL Normal 0.50-0.90 [facility] Comment on above: Performed By: #### B MPX, CDP #### [address] [address] Procurement Intern: Yordan Lr MD Performed By: #### C DP, BMPX ####[address] [address] Lab Director: Yordan Lr MD GFR/1.73 sq M.predicted among non-blacks MDRD (S/P/Bld) [Vol rate/Area] mL/min/{1.73_m2} Normal >60 [facility] Comment on above: Result Comment: Effective Mar 11, 2022 These results are not intended for use in patients <18 years of age. eGFR results are calculated without a race factor using the 2020 CKD-EPI equation. Careful clinical correlation is recommended, particularly when comparing to results calculated using previous equations. The CKD-EPI equation is less accurate in patients with extremes of muscle mass, extra-renal metabolism of creatine, excessive creatine ingestion, or following therapy that affects renal tubular secretion. Performed By: #### B MPX, CDP #### [address] [address] Procurement Intern: Yordan Lr MD Performed By: #### C DP, BMPX ####[address] [address] Lab Director: Yordan Lr MD Glucose [Mass/Vol] 89 mg/dL Normal 70-99 [facility] Comment on above: Performed By: #### B MPX, CDP #### [facility] [place] [address] Procurement Intern: Yordan Lr MD Performed By: #### C DP, BMPX ####[facility] [address] [place] [address] [phone] Director: Yordan Lr MD Potassium [Moles/Vol] 4.1 mmol/L Normal 3.7-5.3 [facility] Comment on above: Performed By: #### B MPX, CDP #### [address] [address] Procurement Intern: Yordan Lr MD Performed By: #### C DP, BMPX ####[address] [address] Lab Director: Yordan Lr MD Sodium [Moles/Vol] 138 mmol/L Normal 135-144 [facility] Comment on above: Performed By: #### B MPX, CDP #### [address] [address] Procurement Intern: Yordan Lr MD Performed By: #### C DP, BMPX ####[facility] [address] [place] [address] [phone] Director: Yordan Lr MD Urea nitrogen [Mass/Vol] 16 mg/dL Normal 8-23 [facility] Comment on above: Performed By: #### B MPX, CDP #### [facility] [address] [place] [address] Procurement Intern: Yordan Lr MD Performed By: #### C DP, BMPX ####[facility] [address] [place] [address] Lab Director: Yordan Lr MD Basic Metabolic Panel w/ Ref dequan to MGon 04-15-2022 Anion gap [Moles/Vol] 9 mmol/L 9 - 17 mmol/L [facility] Calcium [Mass/Vol] 9.6 mg/dL 8.6 - 10. 4 mg/dL [facility] Chloride [Moles/Vol] 107 mmol/L 98 - 10 7 mmol/L [facility] CO2 [Moles/Vol] 22 mmol/L 20 - 31 mmol/L [facility] Creatinine [Mass/Vol] 0.74 mg/dL 0.50 - 0.90 mg/dL [facility] GFR/1.73 sq M.predicted MDRD (S/P/Bld) [Vol rate/Area] - PINF [facility] Comment on above: Effective Mar 11, 2022 These results are not intended for use in patients <18 years of age. eGFR results are calculated without a race factor using the 2020 CKD-EPI equation. Careful clinical correlation is recommended, particularly when comparing to results calculated using previous equations. The CKD-EPI equation is less accurate in patients with extremes of muscle mass, extra-renal metabolism of creatine, excessive creatine ingestion, or following therapy that affects renal tubular secretion. Glucose [Mass/Vol] 89 mg/dL 70 - 99 mg/dL [facility] Potassium [Moles/Vol] 4.1 mmol/L 3.7 - 5.3 mmol/L [facility] Sodium [Moles/Vol] 138 mmol/L 135 - 144 mmol/L [facility] Urea nitrogen (BldV) [Mass/Vol] 16 mg/dL 8 - 23 mg/dL [facility] CBC with Auto Differentialon 04-15-2022 Absolute Eos # 0.14 [facility] Absolute Immature Granulocyte [facility] Absolute Lymph # 1.04 Low [facility] Absolute Prowers # 0.58 [facility] Basophils Absolute [facility] Basophils/100 WBC (Bld) 0 % 0 - 2 % [facility] Eosinophils/100 WBC (Bld) 2 % 1 - 4 % [facility] Hematocrit (Bld) [Volume fraction] 37.9 % 36.3 - 47.1 % [facility] Hemoglobin (Bld) [Mass/Vol] 12.7 g/dL 11.9 - 15.1 g/dL [facility] Immature granulocytes/100 WBC (Bld) 0 % 0 [facility] Interpretation and review of laboratory results Abnormal [facility] Lymphocytes/100 WBC (Bld) 18 % Low 24 - 43 % [facility] MCH (RBC) [Entitic mass] 29.7 pg 25.2 - 33.5 pg [facility] MCHC (RBC) [Mass/Vol] 33.5 g/dL 28.4 - 34.8 g/dL [facility] MCV (RBC) [Entitic vol] 88.6 fL 82.6 - 102.9 fL [facility] Monocytes/100 WBC (Bld) 10 % 3 - 12 % [facility] NRBC Automated 0.0 0.0 per 100 WBC [facility] Platelet distribution width (Bld) [Ratio] 12.6 % 11.8 - 14.4 % [facility] Platelet mean volume (Bld) [Entitic vol] 10.0 fL 8.1 - 13.5 fL [facility] Platelets (Bld) [#/Vol] 161 10*3/uL [facility] RBC (Bld) [#/Vol] 4.28 10*6/uL 3.95 - 5.1 1 m/uL [facility] Segmented neutrophils/100 WBC (Bld) 70 % High 36 - 65 % [facility] Segs Absolute 4.10 [facility] WBC (Bld) [#/Vol] 5.9 10*3/uL [facility] CBC with Diffon 04-15-2022 Abs. Basophil <0.03 Normal 0.00-0.20 [facility] Comment on above: Performed By: #### B MPX, CDP #### [facility] [place] [phone] Procurement Intern: Yordan Lr MD Performed By: #### C DP, BMPX ####[place] [address] Lab Director: Yordan Lr MD Abs.Imm.Granulocyte <0.03 Normal 0.00-0.30 [facility] Comment on above: Performed By: #### B MPX, CDP #### [place] [address] Procurement Intern: Yordan Lr MD Performed By: #### C DP, BMPX ####[place], [place] [address])[phone] Director: Yordan Lr MD Abs.Neutrophil (Seg) 4.10 k/uL Normal 1.50-8.[address] [facility] Comment on above: Performed By: #### B MPX, CDP #### [place] [address] Procurement Intern: Yordan Lr MD Performed By: #### C DP, BMPX ####[place], [place] [address])[phone] Director: Yordan Lr MD Basophils/100 WBC (Bld) 0 % Normal 0-2 [facility] Comment on above: Performed By: #### B MPX, CDP #### [place] [address] Procurement Intern: Yordan Lr MD Performed By: #### C DP, BMPX ####[place], [place] [address])[phone] Director: Yordan Lr MD Eosinophils (Bld) [#/Vol] 0.14 10*3/uL Normal 0.00-0.44 [facility] Comment on above: Performed By: #### B MPX, CDP #### [place] [address] Procurement Intern: Yordan Lr MD Performed By: #### C DP, BMPX ####[address] [address] Lab Director: Yordan Lr MD Eosinophils/100 WBC (Bld) 2 % Normal 1-4 [facility] Comment on above: Performed By: #### B MPX, CDP #### [address] [address] Procurement Intern: Yodran Lr MD Performed By: #### C DP, BMPX ####[address] [address] Lab Director: Yordan Lr MD Erythrocyte distribution width (RBC) [Ratio] 12.6 % Normal 11.8-14.4 [facility] Comment on above: Performed By: #### B MPX, CDP #### [address] [address] Procurement Intern: Yordan Lr MD Performed By: #### C DP, BMPX ####[address] [address] Lab Director: Yordan Lr MD Hematocrit (Bld) [Volume fraction] 37.9 % Normal 36.3-47.1 [facility] Comment on above: Performed By: #### B MPX, CDP #### [place] [address] Procurement Intern: Yordan Lr MD Performed By: #### C DP, BMPX ####[address] [address] Lab Director: Yordan Lr MD Hemoglobin (Bld) [Mass/Vol] 12.7 g/dL Normal 11.9-15.1 [facility] Comment on above: Performed By: #### B MPX, CDP #### [address] [place] [address] Procurement Intern: Yordan Lr MD Performed By: #### C DP, BMPX ####[address] [address] Lab Director: Yordan Lr MD Immature granulocytes/100 WBC (Bld) 0 % Normal 0 [facility] Comment on above: Performed By: #### B MPX, CDP #### [address] [address] Procurement Intern: Yordan Lr MD Performed By: #### C DP, BMPX ####[address] [phone] Director: Yordan Lr MD Lymphocytes (Bld) [#/Vol] 1.04 10*3/uL Low 1.10-3.70 [facility] Comment on above: Performed By: #### B MPX, CDP #### [address] [address] Procurement Intern: Yordan Lr MD Performed By: #### C DP, BMPX ####[address] [phone] Director: Yordan Lr MD Lymphocytes/100 WBC (Bld) 18 % Low 24-43 [facility] Comment on above: Performed By: #### B MPX, CDP #### [address] [address] Procurement Intern: Yordan Lr MD Performed By: #### C DP, BMPX ####[facility] [address] [place] [address] [phone] Director: Yordan Lr MD MCH (RBC) [Entitic mass] 29.7 pg Normal 25.2-33.5 [facility] Comment on above: Performed By: #### B MPX, CDP #### [address] [place] [address] Procurement Intern: Yordan Lr MD Performed By: #### C DP, BMPX ####[address] [phone] Director: Yordan Lr MD MCHC (RBC) [Mass/Vol] 33.5 g/dL Normal 28.4-34.8 [facility] Comment on above: Performed By: #### B MPX, CDP #### [address] [address] Procurement Intern: Yordan Lr MD Performed By: #### C DP, BMPX ####[address] [phone] Director: Yordan Lr MD MCV (RBC) [Entitic vol] 88.6 fL Normal 82.6-102.9 [facility] Comment on above: Performed By: #### B MPX, CDP #### [address] [address] Procurement Intern: Yordan Lr MD Performed By: #### C DP, BMPX ####[address] [phone] Director: Yordan Lr MD Monocytes (Bld) [#/Vol] 0.58 10*3/uL Normal 0.10-1.20 [facility] Comment on above: Performed By: #### B MPX, CDP #### [address] [address] Procurement Intern: Yordan Lr MD Performed By: #### C DP, BMPX ####[address] [phone] Director: Yordan Lr MD Monocytes/100 WBC (Bld) 10 % Normal 3-12 [facility] Comment on above: Performed By: #### B MPX, CDP #### [place] [address] [place] [address] Procurement Intern: Yordan Lr MD Performed By: #### C DP, BMPX ####[place] [address] [place], [place] [phone] Director: Yordan Lr MD Neutrophil (Seg) 70 % High 36-65 [facility] Comment on above: Performed By: #### B MPX, CDP #### [address] [address] Procurement Intern: Yordan Lr MD Performed By: #### C DP, BMPX ####[address] [phone] Director: Yordan Lr MD NRBC Automated 0.0 per 100 WBC Normal 0.0 [facility] Comment on above: Performed By: #### B MPX, CDP #### [address] [address] Procurement Intern: Yordan Lr MD Performed By: #### C DP, BMPX ####[address] [address] Lab Director: Yordan Lr MD Platelet mean volume (Bld) [Entitic vol] 10.0 fL Normal 8.1-13.5 [facility] Comment on above: Performed By: #### B MPX, CDP #### [address] [address] Procurement Intern: Yordan rL MD Performed By: #### C DP, BMPX ####[address] [address] Lab Director: Yordan Lr MD Platelets (Bld) [#/Vol] 161 10*3/uL Normal 138-453 [facility] Comment on above: Performed By: #### B MPX, CDP #### [facility] [employer] [address] [place] [address] Procurement Intern: Yordan Lr MD Performed By: #### C DP, BMPX ####[facility] [address] [place] [address] Lab Director: Yordan Lr MD RBC (Bld) [#/Vol] 4.28 10*6/uL Normal 3.95-5.11 [facility] Comment on above: Performed By: #### B MPX, CDP #### [address] [address] Procurement Intern: Yordan Lr MD Performed By: #### C DP, BMPX ####[address] [phone] Director: Yordan Lr MD WBC (Bld) [#/Vol] 5.9 10*3/uL Normal 3.5-11.3 [facility] Comment on above: Performed By: #### B MPX, CDP #### [address] [address] Procurement Intern: Yordan Lr MD Performed By: #### C DP, BMPX ####[address] [phone] Director: Yordan Lr MD Drug Scr, Abuse, Uron 2021 Amphetamine(s),Ur Negative Normal NEG [facility] Comment on above: Result Comment: (Positive cutoff 1000 ng/mL) Performed By: #### U AX, RAMA #### [facility] [employer] [address] [place] [address] Procurement Intern: Yordan Lr MD Barbiturate(s),Ur Negative Normal NEG [facility] Comment on above: Result Comment: (Positive cutoff 200 ng/mL) Performed By: #### U AX, RAMA #### [facility] [address] [place] [address] Procurement Intern: Yordan Lr MD Benzodiazepine(s) Negative Normal NEG [facility] Comment on above: Result Comment: (Positive cutoff 200 ng/mL) Performed By: #### U AX, RAMA #### [facility] [address] [place] [address] Procurement Intern: Yordan Lr MD Cannabinoid(s),Ur Negative Normal NEG [facility] Comment on above: Result Comment: (Positive cutoff 50 ng/mL) Performed By: #### U AX, RAMA #### [facility] [address] [place] [address] Procurement Intern: Yordan Lr MD Cocaine Metabolite Negative Normal NEG [facility] Comment on above: Result Comment: (Positive cutoff 300 ng/mL) Performed By: #### U AX, RAMA #### [facility] [address] [place] [address] Procurement Intern: Yordan Lr MD Fentanyl, Urine Negative Normal NEG [facility] Comment on above: Result Comment: (Positive cutoff 5 ng/ml) Performed By: #### U AX, RAMA #### [facility] [address] [place] [address] Procurement Intern: Yordan Lr MD Interpretive Info Assay provides medical screening only. The absence of expected drug(s) and/or Normal [facility] Comment on above: Result Comment: meta bolite(s) may indicate diluted or adulterated urine, limitations of testing or timing of collection. Testing for legal purposes should be confirmed by another method. To request confirmation of test result, please call the lab within 7 days of sample submission. Performed By: #### U AX, RAMA #### [facility] [address] [place] [address] Procurement Intern: Yordan Lr MD Methadone Ql (U) Negative Normal NEG [facility] Comment on above: Result Comment: (Positive cutoff 300 ng/mL) Performed By: #### U AX, RAMA #### [address] [address] Procurement Intern: Yordan Lr MD Opiate(s), Ur Negative Normal NEG [facility] Comment on above: Result Comment: (Positive cutoff 300 ng/mL) Performed By: #### U AX, RAMA #### [address] [address] Procurement Intern: Yordan Lr MD Oxycodone, Urine Negative Normal NEG [facility] Comment on above: Result Comment: (Positive cutoff 100 ng/mL) Performed By: #### U AX, RAMA #### [address] [address] Procurement Intern: Yordan Lr MD Phencyclidine, Ur Negative Normal NEG [facility] Comment on above: Result Comment: (Positive cutoff 25 ng/mL) Performed By: #### U AX, RAMA #### [address] [address] Procurement Intern: Yordan Lr MD Hemoglobin A1Con 04-15-2022 Glucose [Mass/Vol] 120 mg/dL Normal [facility] Comment on above: Result Comment: The ADA and AACC recommend providing the estimated average glucose result to permit better patient understanding of their HBA1c result. Performed By: #### F T4, TSH, VD25, B12, ERTPF, GLYHGB, ALB ####[facility] [address] [place] [address] Lab Director: Yordan Lr MD Performed By: #### G LYHGB, ALB, ERTPF, B12, FT4, TSH, VD25 ####[facility] [id number] [place] [address] Lab Director: Yordan Lr MD HbA1c (Bld) [Mass fraction] 5.8 % Normal 4.0-6.0 [facility] Comment on above: Performed By: #### F T4, TSH, VD25, B12, ERTPF, GLYHGB, ALB ####[facility] [id number] [place] [address] Lab Director: Yordan Lr MD Performed By: #### G LYHGB, ALB, ERTPF, B12, FT4, TSH, VD25 ####[facility] [id number] [place] [id number] Lab Director: Yordan Lr MD Glucose [Mass/Vol] 120 mg/dL [facility] Comment on above: The ADA and AACC rec ommend providing the estimated average glucose result to permit better patient understanding of their HBA1c result. HbA1c (Bld) [Mass fraction] 5.8 % 4.0 - 6.0 % [facility] UA w/Reflex Cultureon 2021 Bilirubin, SemiQt,Ur Negative Normal NEG [facility] Comment on above: Performed By: #### U AX, RAMA #### [address] [address] Procurement Intern: Yordan Lr MD Blood, Urine Negative Normal NEG [facility] Comment on above: Performed By: #### U AX, RAMA #### [facility] [address] [place] [address] Procurement Intern: Yordan Lr MD Clarity (U) Clear Normal CLEAR [facility] Comment on above: Performed By: #### U AX, RAMA #### [facility] [address] [place] [address] Procurement Intern: Yordan Lr MD Color (U) Yellow Normal YEL [facility] Comment on above: Performed By: #### U AX, RAMA #### [facility] [address] [place] [address] Procurement Intern: Yordan Lr MD Comment Microscopic exam not performed based on chemical results unless requested in Normal [facility] Comment on above: Result Comment: orig inal order. Performed By: #### U AX, RAMA #### [facility] [address] [address] Procurement Intern: Yordan Lr MD Glucose Ql (U) Negative Normal NEG [facility] Comment on above: Performed By: #### U AX, RAMA #### [facility] [address] [place] [phone] Procurement Intern: Yordan Lr MD Ketones Ql (U) TRACE Abnormal NEG [facility] Comment on above: Performed By: #### U AX, RAMA #### [address] [address] Procurement Intern: Yordan Lr MD Leukocyte esterase Test strip Ql (U) Negative Normal NEG [facility] Comment on above: Performed By: #### U AX, RAMA #### [address] [address] Procurement Intern: Yordan Lr MD Nitrite,Ur Negative Normal NEG [facility] Comment on above: Performed By: #### U AX, RAMA #### [address] [address] Procurement Intern: Yordan Lr MD PH,Ur 6.5 Normal 5.0-8.0 [facility] Comment on above: Performed By: #### U AX, RAMA #### [facility] [address] [place] [address] Procurement Intern: Yordan Lr MD Protein Ql (U) Negative Normal NEG [facility] Comment on above: Performed By: #### U AX, RAMA #### [address] [address] Procurement Intern: Yordan Lr MD Spec. [place],Ur 1.047 High 1.005-1.030 [facility] Comment on above: Performed By: #### U AX, RAMA #### [address] [address] Procurement Intern: Yordan Lr MD Urobilinogen,Ur Normal Normal NORM [facility] Comment on above: Performed By: #### U AX, RAMA #### [facility] [address] [place] [phone] Procurement Intern: Yordan Lr MD Albuminon 04-14-2022 Albumin [Mass/Vol] 4.1 g/dL Normal 3.5-5.2 [facility] Comment on above: Performed By: #### F T4, TSH, VD25, B12, ERTPF, GLYHGB, ALB #### [address] [address] Procurement Intern: Yordan Lr MD Performed By: #### G LYHGB, ALB, ERTPF, B12, FT4, TSH, VD25 #### [address] [address] Procurement Intern: Yordan Lr MD Albumin [Mass/Vol] 4.1 g/dL 3.5 - 5.2 g/dL [facility] CBC AUTO DIFFon 04-14-2022 BASO # 0.0 103/ul Normal 0.0-0.[address] [facility] Comment on above: Performed By: #### C BC #### [facility] [address] [address] [address] Brii Humphries Basophils/100 WBC (Bld) 0.4 % Normal 0.2-2.[address] [facility] Comment on above: Performed By: #### C BC #### [facility] [address] [address] [address] Brii Humphries EO # 0.2 103/ul Normal 0.0-0.[address] [facility] Comment on above: Performed By: #### C BC #### [facility] [address] [address] [address] Brii Humphries Eosinophils/100 WBC (Bld) 2.0 % Normal 0.9-7.[address] [facility] Comment on above: Performed By: #### C BC #### [facility] [address] [place] [address] Dr. Brii Humphries Hematocrit (Bld) [Volume fraction] 40.1 % Normal 36.0-48.[address] [facility] Comment on above: Performed By: #### C BC #### [facility] [address] [place] [address] Dr. Brii Humphries Hemoglobin (Bld) [Mass/Vol] 13.1 g/dL Normal 12.0-16.[address] [facility] Comment on above: Performed By: #### C BC #### [facility] [address] [place] [address] Dr. Brii Humphries IG # 0.02 10e3/ul Normal 0.00-0.[address] [facility] Comment on above: Performed By: #### C BC #### [facility] [address] [place] [address] Dr. Brii Humphries IG % 0.3 % Normal 0.0-0.[address] [facility] Comment on above: Performed By: #### C BC #### [facility] [address] [place] [address] Dr. Brii Humphries LYMPH # 1.1 103/ul Critically low 1.2-3.8 [facility] Comment on above: Performed By: #### C BC #### [facility] [address] [place] [address] Dr. Brii Humphries Lymphocytes/100 WBC (Bld) 15.0 % Critically low 20.5-60.[address] [facility] Comment on above: Performed By: #### C BC #### [facility] [address] [place] [address] Dr. Brii Humphries MANUAL DIFF REQ NO Normal [facility] Comment on above: Performed By: #### C BC #### [facility] [address] [place] [address] Dr. Brii Humphries MCH (RBC) [Entitic mass] 28.8 pg Normal 26.7-34.0 [facility] Comment on above: Performed By: #### C BC #### [facility] [address] [place] [address] Dr. Brii Humphries MCHC (RBC) [Mass/Vol] 32.7 g/dL Normal 29.9-35.2 [facility] Comment on above: Performed By: #### C BC #### [facility] [address] [place] [address] Dr. Brii Humphries MCV (RBC) [Entitic vol] 88.1 fL Normal 81.0-99.[address] [facility] Comment on above: Performed By: #### C BC #### [facility] [address] [place] [address] Dr. Brii Humphries MONO # 0.5 103/ul Normal 0.3-0.[address] [facility] Comment on above: Performed By: #### C BC #### [facility] [address] [place] [address] Dr. Brii Humphries Monocytes/100 WBC (Bld) 6.6 % Normal 1.7-12.[address] [facility] Comment on above: Performed By: #### C BC #### [facility] [address] [place] [address] Dr. Brii Humphries NEUT # 5.6 103/ul Normal 1.4-6.5 [facility] Comment on above: Performed By: #### C BC #### [facility] [address] [place] [address] Dr. Brii Humphries Neutrophils/100 WBC (Bld) 75.7 % Critically high 43.0-75.0 [facility] Comment on above: Performed By: #### C BC #### [facility] [address] [place] [address] Dr. Brii Humphries Platelet mean volume (Bld) [Entitic vol] 9.7 fL Normal 9.5-13.5 [facility] Comment on above: Performed By: #### C BC #### [facility] [address] [place], [place] [address] Dr. Brii Humphries PLT 174 103/ul Normal 150-450 [facility] Comment on above: Performed By: #### C BC #### [facility] [address] [address] [address] Brii Humphries RBC 4.55 106/ul Normal 4.20-5.[address] [facility] Comment on above: Performed By: #### C BC #### [facility] [id number] Brii Humphries WBC 7.4 103/ul Normal 4.0-11.[address] [facility] Comment on above: Performed By: #### C BC #### [facility] [address] [place] [address] CHEST ABDOMEN PELVIS W CO NTRASTon 04-14-2022 CT CHEST ABDOMEN PELVIS W CONTRAST EXAMINATION: CT OF THE CHEST, ABDOMEN, AND PELVIS WITH CONTRAST; CT OF THE THORACIC SPINE WITHOUT CONTRAST; CT OF THE LUMBAR SPINE WITHOUT CONTRAST 04/14/2022 7:27 pm TECHNIQUE: CT of the chest, abdomen and pelvis was performed with the administration of Isovue 370 intravenous contrast. Multiplanar reformatted images are provided for review. Automated exposure control, iterative reconstruction, and/or weight based adjustment of the mA/kV was utilized to reduce the radiation dose to as low as reasonably achievable. Reformatted images of the thoracic and lumbar spine were obtained. COMPARISON: None HISTORY: Acute pain status post fall. FINDINGS: Chest: Mediastinum: Heart is not enlarged. Prosthetic mitral valve. No pericardial effusion. Thoracic aorta is normal caliber. No lymphadenopathy. 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 Esophagus is unremarkable. Lungs/pleura: Mild biapical scarring and minimal dependent atelectasis. No consolidation, pleural effusion, or pneumothorax. Soft Tissues/Bones: Left chest pacemaker. Osteopenia without acute osseous abnormality. Abdomen/Pelvis: Organs: Scattered liver lesions measuring up to 8 cm have the appearance of a hemangiomas. Remaining solid organs and the gallbladder are unremarkable. GI/Bowel: No acute abnormality. Pelvis: Bladder is unremarkable. Uterus is retroverted and contains calcified fibroids. No lymphadenopathy or free fluid. Peritoneum/Retroperi toneum: No ascites, free intraperitoneal air, or ascites. Abdominal aorta is normal caliber. Bones/Soft Tissues: Osteopenia without acute osseous abnormality. Mild osteoarthrosis of the hips. Thoracic/Lumbar Spine: No acute fracture of the thoracic spine. Vertebral body heights are maintained. No spondylolisthesis. Minimal degenerative changes. No acute fracture of the lumbar spine. No spondylolisthesis. Posterior fusion changes at L4-L5. Mild degenerative changes of the upper lumbar spine. IMPRESSION: 1. No acute findings within the chest, abdomen common pelvis or within the thoracolumbar spine. 2. Multiple liver lesions measuring up to 8 cm are likely hemangiomas. 3. Calcified uterine fibroids. Interpreted by: Jesusita Quintanilla MD Signed by: Jesusita Quintanilla MD 04/14/22 Final result Normal [facility] CT [facility]INE WO CON[facility] [address] [facility]: CT CSPINE WO CON, 04/14/2022 12:47 PM PST HISTORY: Closed injury of head TECHNIQUE: Helical CT of the cervical spine was obtained without contrast. Axial, coronal, and sagittal sequences were reconstructed. Dose reduction technique was used including one or more of the following: automated exposure control, iterative reconstruction technique, or adjustment of mA and kV according to patient size. COMPARISON: None available FINDINGS: No evidence of acute fracture or subluxation. Minimal multilevel listhesis associated with degenerative changes. No prevertebral swelling. There is age-expected degenerative disc disease and facet arthrosis. At least moderate multilevel spinal canal and neural foraminal stenoses. No acute or suspicious findings in the included soft tissues of the neck or lung apices. IMPRESSION: No acute traumatic findings of the cervical spine. Electronically authenticated by: SHAHZAD TOMAS Date: 2022-04-14 16:[address] [facility] CT FACIAL BONES WO CONon CT FACIAL BONES WO CON CT MAXILLOFACIAL WITHOUT CONTRAST. CLINICAL HISTORY: Pain in face COMPARISON: None. TECHNIQUE: Multidetector maxillofacial CT without contrast. Coronal and sagittal reformatted images were obtained. FINDINGS: OSSEOUS STRUCTURES: No acute fracture is seen. ORBITS: Normal orbits. No inflammation or fluid collection. ORAL CAVITY: No inflammation or fluid collection. No periapical lucency. SOFT TISSUES: Right premaxillary contusion.. There is also a 9 mm subcutaneous contusion in the right chin. VISUALIZED INTRACRANIAL CONTENTS: No acute findings. MASTOID AIR CELLS: Clear. PARANASAL SINUSES: Clear.. IMPRESSION: 1. No acute maxillofacial fracture. 2. Right premaxillary contusion and right chin subcutaneous hematoma. Electronically authenticated by: FELIPA HOPPER Date: 2022-04-14 16:[address] [facility] [address] HEAD WO CONon 04-14-2022 CT HEAD WO CON CT HEAD WITHOUT CONTRAST. INDICATION: Closed head injury. COMPARISON: 12/08/2018 TECHNIQUE: Axial CT head images from the skull base to the vertex without IV contrast were acquired. Coronal and sagittal reformats were also obtained. FINDINGS: EXTRA-AXIAL SPACE: Age-appropriate ventricles. There is an acute subdural hemorrhage over the left parietal convexity measuring up to 4 mm thick.. No midline shift. CEREBRUM: There are areas of periventricular and deep white matter low-attenuation, which is nonspecific but likely reflective of chronic microvascular ischemic disease.. No CT evidence of acute large territorial cortical infarct, hemorrhage or mass effect. CEREBELLUM: No focal abnormality. No CT evidence of acute infarct, hemorrhage or mass effect. BRAINSTEM: No focal abnormality. No CT evidence of acute infarct, hemorrhage or mass effect. EXTRACRANIAL STRUCTURES. The paranasal sinuses are clear. Mastoid air cells are clear. Orbits are unremarkable. No discrete pituitary mass. Intact calvarium. IMPRESSION: Acute small subdural hemorrhage over the left parietal convexity. No midline shift. Electronically authenticated by: FELIPA HOPPER Date: 2022-04-14 16:[address] [facility] [address] HEAD WO CONTRASTon 2021 CT HEAD WO CONTRAST EXAMINATION: CT OF THE HEAD WITHOUT CONTRAST 04/14/2022 4:27 pm TECHNIQUE: CT of the head was performed without the administration of intravenous contrast. Automated exposure control, iterative reconstruction, and/or weight based adjustment of the mA/kV was utilized to reduce the radiation dose to as low as reasonably achievable. COMPARISON: None. HISTORY: ORDERING SYSTEM PROVIDED HISTORY: trauma TECHNOLOGIST PROVIDED HISTORY: trauma Decision Support Exception - unselect if not a suspected or confirmed emergency medical condition->Emergency Medical Condition (MA) Reason for Exam: fall FINDINGS: BRAIN/VENTRICLES: There is an acute subdural hematoma overlying the left parietooccipital lobes that measures up to 4 mm in thickness. No significant mass effect is noted. Brain volume and attenuation appear normal. There is no loss of larson-white differentiation. The ventricles and cisterns are normally patent. ORBITS: The visualized portion of the orbits demonstrate no acute abnormality. SINUSES: The visualized paranasal sinuses and mastoid air cells demonstrate no acute abnormality. SOFT TISSUES/SKULL: No acute abnormality of the visualized skull or soft tissues. IMPRESSION: Acute left subdural hematoma overlying the parietooccipital lobes measuring up to 4 mm in thickness with no significant associated mass effect. Critical results were called by Dr. Jaynat Martínez to Dr. Cain on 04/14/2022 at 8:16 p.m.. Interpreted by: Jayant Rodrigues MD Signed by: Jayant Rodrigues MD 04/14/22 Final result Normal [facility] Acute left subdural hematoma overlying the parietooccipital lobes measuring up to 4 mm in thickness with no significant associated mass effect. Critical results were called by Dr. Jayant Martínez to Dr. Cain on 04/14/2022 at 8:16 p.m.. [facility] EXAMINATION: CT OF THE HEAD WITHOUT CONTRAST 04/14/2022 4:27 pm TECHNIQUE: CT of the head was performed without the administration of intravenous contrast. Automated exposure control, iterative reconstruction, and/or weight based adjustment of the mA/kV was utilized to reduce the radiation dose to as low as reasonably achievable. COMPARISON: None. HISTORY: ORDERING SYSTEM PROVIDED HISTORY: trauma TECHNOLOGIST PROVIDED HISTORY: trauma Decision Support Exception - unselect if not a suspected or confirmed emergency medical condition->Emergency Medical Condition (MA) Reason for Exam: fall FINDINGS: BRAIN/VENTRICLES: There is an acute subdural hematoma overlying the left parietooccipital lobes that measures up to 4 mm in thickness. No significant mass effect is noted. Brain volume and attenuation appear normal. There is no loss of larson-white differentiation. The ventricles and cisterns are normally patent. ORBITS: The visualized portion of the orbits demonstrate no acute abnormality. SINUSES: The visualized paranasal sinuses and mastoid air cells demonstrate no acute abnormality. SOFT TISSUES/SKULL: No acute abnormality of the visualized skull or soft tissues. [facility] Jayant Rodrigues MD - 04/14/2022 EXAMINATION: CT OF THE HEAD WITHOUT CONTRAST 04/14/2022 4:27 pm TECHNIQUE: CT of the head was performed without the administration of intravenous contrast. Automated exposure control, iterative reconstruction, and/or weight based adjustment of the mA/kV was utilized to reduce the radiation dose to as low as reasonably achievable. COMPARISON: None. HISTORY: ORDERING SYSTEM PROVIDED HISTORY: trauma TECHNOLOGIST PROVIDED HISTORY: trauma Decision Support Exception - unselect if not a suspected or confirmed emergency medical condition->Emergency Medical Condition (MA) Reason for Exam: fall FINDINGS: BRAIN/VENTRICLES: There is an acute subdural hematoma overlying the left parietooccipital lobes that measures up to 4 mm in thickness. No significant mass effect is noted. Brain volume and attenuation appear normal. There is no loss of larson-white differentiation. The ventricles and cisterns are normally patent. ORBITS: The visualized portion of the orbits demonstrate no acute abnormality. SINUSES: The visualized paranasal sinuses and mastoid air cells demonstrate no acute abnormality. SOFT TISSUES/SKULL: No acute abnormality of the visualized skull or soft tissues. IMPRESSION: Acute left subdural hematoma overlying the parietooccipital lobes measuring up to 4 mm in thickness with no significant associated mass effect. Critical results were called by Dr. Jayant Martínez to Dr. Cain on 04/14/2022 at 8:16 p.m.. [facility] Phone: Radiology Study observation (narrative) [facility] Phone: CT HEAD WO CONTRASTOrdered B y: Jayant Rodrigues on 04-14-2022 [facility] Phone: CT LUMBAR SPINE TRAUMA RECON STRUCTIONon 04-14-2022 CT LUMBAR SPINE TRAUMA RECONSTRUCTION EXAMINATION: CT OF THE CHEST, ABDOMEN, AND PELVIS WITH CONTRAST; CT OF THE THORACIC SPINE WITHOUT CONTRAST; CT OF THE LUMBAR SPINE WITHOUT CONTRAST 04/14/2022 7:27 pm TECHNIQUE: CT of the chest, abdomen and pelvis was performed with the administration of Isovue 370 intravenous contrast. Multiplanar reformatted images are provided for review. Automated exposure control, iterative reconstruction, and/or weight based adjustment of the mA/kV was utilized to reduce the radiation dose to as low as reasonably achievable. Reformatted images of the thoracic and lumbar spine were obtained. COMPARISON: None HISTORY: Acute pain status post fall. FINDINGS: Chest: Mediastinum: Heart is not enlarged. Prosthetic mitral valve. No pericardial effusion. Thoracic aorta is normal caliber. No lymphadenopathy. 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 Esophagus is unremarkable. Lungs/pleura: Mild biapical scarring and minimal dependent atelectasis. No consolidation, pleural effusion, or pneumothorax. Soft Tissues/Bones: Left chest pacemaker. Osteopenia without acute osseous abnormality. Abdomen/Pelvis: Organs: Scattered liver lesions measuring up to 8 cm have the appearance of a hemangiomas. Remaining solid organs and the gallbladder are unremarkable. GI/Bowel: No acute abnormality. Pelvis: Bladder is unremarkable. Uterus is retroverted and contains calcified fibroids. No lymphadenopathy or free fluid. Peritoneum/Retroperi toneum: No ascites, free intraperitoneal air, or ascites. Abdominal aorta is normal caliber. Bones/Soft Tissues: Osteopenia without acute osseous abnormality. Mild osteoarthrosis of the hips. Thoracic/Lumbar Spine: No acute fracture of the thoracic spine. Vertebral body heights are maintained. No spondylolisthesis. Minimal degenerative changes. No acute fracture of the lumbar spine. No spondylolisthesis. Posterior fusion changes at L4-L5. Mild degenerative changes of the upper lumbar spine. IMPRESSION: 1. No acute findings within the chest, abdomen common pelvis or within the thoracolumbar spine. 2. Multiple liver lesions measuring up to 8 cm are likely hemangiomas. 3. Calcified uterine fibroids. Interpreted by: Jesusita Quintanilla MD Signed by: Jesusita Quintanilla MD 04/14/22 Final result Normal [facility] CT THORACIC SPINE TRAUMA REC ONSTRUCTIONon 04-14-2022 CT THORACIC SPINE TRAUMA RECONSTRUCTION EXAMINATION: CT OF THE CHEST, ABDOMEN, AND PELVIS WITH CONTRAST; CT OF THE THORACIC SPINE WITHOUT CONTRAST; CT OF THE LUMBAR SPINE WITHOUT CONTRAST 04/14/2022 7:27 pm TECHNIQUE: CT of the chest, abdomen and pelvis was performed with the administration of Isovue 370 intravenous contrast. Multiplanar reformatted images are provided for review. Automated exposure control, iterative reconstruction, and/or weight based adjustment of the mA/kV was utilized to reduce the radiation dose to as low as reasonably achievable. Reformatted images of the thoracic and lumbar spine were obtained. COMPARISON: None HISTORY: Acute pain status post fall. FINDINGS: Chest: Mediastinum: Heart is not enlarged. Prosthetic mitral valve. No pericardial effusion. Thoracic aorta is normal caliber. No lymphadenopathy. 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 Esophagus is unremarkable. Lungs/pleura: Mild biapical scarring and minimal dependent atelectasis. No consolidation, pleural effusion, or pneumothorax. Soft Tissues/Bones: Left chest pacemaker. Osteopenia without acute osseous abnormality. Abdomen/Pelvis: Organs: Scattered liver lesions measuring up to 8 cm have the appearance of a hemangiomas. Remaining solid organs and the gallbladder are unremarkable. GI/Bowel: No acute abnormality. Pelvis: Bladder is unremarkable. Uterus is retroverted and contains calcified fibroids. No lymphadenopathy or free fluid. Peritoneum/Retroperi toneum: No ascites, free intraperitoneal air, or ascites. Abdominal aorta is normal caliber. Bones/Soft Tissues: Osteopenia without acute osseous abnormality. Mild osteoarthrosis of the hips. Thoracic/Lumbar Spine: No acute fracture of the thoracic spine. Vertebral body heights are maintained. No spondylolisthesis. Minimal degenerative changes. No acute fracture of the lumbar spine. No spondylolisthesis. Posterior fusion changes at L4-L5. Mild degenerative changes of the upper lumbar spine. IMPRESSION: 1. No acute findings within the chest, abdomen common pelvis or within the thoracolumbar spine. 2. Multiple liver lesions measuring up to 8 cm are likely hemangiomas. 3. Calcified uterine fibroids. Interpreted by: Jesusita Quintanilla MD Signed by: Jesusita Quintanilla MD 04/14/22 Final result Normal [facility] Covid-19 PCR (CVDTB)on SARS-CoV-2 (COVID-19) RNA LI+probe Ql (Unsp spec) Not detected Normal NOT DETECTED [facility] Comment on above: Result Comment: When diagnostic testing is negative, the possibility of a false negative should be considered in the context of a patient's recent exposures and the presence of clinical signs and symptoms consistent with SARS-CoV-2. This test is not yet approved or cleared by the [place] FDA. When there are no FDA-approved or cleared tests available, and other criteria are met, FDA can make tests available under an emergency access mechanism called an Emergency Use Authorization (EUA). The EUA for this test is supported by the [place] of Health and Human Service's declaration that circumstances exist to justify the emergency use of in vitro diagnostics for the detection and/or diagnosis of the virus that causes COVID-19. This EUA will remain in effect for the duration of the COVID-19 declaration justifying emergency of IVDs, unless it is terminated or revoked by the FDA (after which the test may no longer be used). Performed By: #### [facility] #### [facility] [address] [address] [address] Brii Humphries DRUG SCREEN MULTI URINEon Amphetamine Screen, Ur Negative NEGATIVE [facility] Comment on above: (Positive cutoff 1000 ng/mL) Barbiturate Screen, Ur Negative NEGATIVE [facility] Comment on above: (Positive cutoff 200 ng/mL) Benzodiazepine Screen, Urine Negative NEGATIVE [facility] Comment on above: (Positive cutoff 200 ng/mL) Cannabinoid Scrn, Ur Negative NEGATIVE [facility] Comment on above: (Positive cutoff 50 ng/mL) Cocaine Metabolite, Urine Negative NEGATIVE [facility] Comment on above: (Positive cutoff 300 ng/mL) Fentanyl, Ur Negative NEGATIVE [facility] Comment on above: (Positive cutoff 5 ng/ml) Methadone Screen, Urine Negative NEGATIVE [facility] Comment on above: (Positive cutoff 300 ng/mL) Opiates, Urine Negative NEGATIVE [facility] Comment on above: (Positive cutoff 300 ng/mL) Oxycodone Screen, Ur Negative NEGATIVE [facility] Comment on above: (Positive cutoff 100 ng/mL) Phencyclidine, Urine Negative NEGATIVE [facility] Comment on above: (Positive cutoff 25 ng/mL) Test Information Assay provides medical screening only. The absence of expected drug(s) and/or metabolite(s) may indicate diluted or adulterated urine, limitations of testing or timing of collection. [facility] Comment on above: Testing for legal pu rposes should be confirmed by another method. To request confirmation of test result, please call the lab within 7 days of sample submission. weendy No Panel Informationon 04-14 1. No acute findings within the chest, abdomen common pelvis or within the thoracolumbar spine. 2. Multiple liver lesions measuring up to 8 cm are likely hemangiomas. 3. Calcified uterine fibroids. [facility] EXAMINATION: CT OF THE CHEST, ABDOMEN, AND PELVIS WITH CONTRAST; CT OF THE THORACIC SPINE WITHOUT CONTRAST; CT OF THE LUMBAR SPINE WITHOUT CONTRAST 04/14/2022 7:27 pm TECHNIQUE: CT of the chest, abdomen and pelvis was performed with the administration of Isovue 370 intravenous contrast. Multiplanar reformatted images are provided for review. Automated exposure control, iterative reconstruction, and/or weight based adjustment of the mA/kV was utilized to reduce the radiation dose to as low as reasonably achievable. Reformatted images of the thoracic and lumbar spine were obtained. COMPARISON: None HISTORY: Acute pain status post fall. FINDINGS: Chest: Mediastinum: Heart is not enlarged. Prosthetic mitral valve. No pericardial effusion. Thoracic aorta is normal caliber. No lymphadenopathy. 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 Esophagus is unremarkable. Lungs/pleura: Mild biapical scarring and minimal dependent atelectasis. No consolidation, pleural effusion, or pneumothorax. Soft Tissues/Bones: Left chest pacemaker. Osteopenia without acute osseous abnormality. Abdomen/Pelvis: Organs: Scattered liver lesions measuring up to 8 cm have the appearance of a hemangiomas. Remaining solid organs and the gallbladder are unremarkable. GI/Bowel: No acute abnormality. Pelvis: Bladder is unremarkable. Uterus is retroverted and contains calcified fibroids. No lymphadenopathy or free fluid. Peritoneum/Retroperi toneum: No ascites, free intraperitoneal air, or ascites. Abdominal aorta is normal caliber. Bones/Soft Tissues: Osteopenia without acute osseous abnormality. Mild osteoarthrosis of the hips. Thoracic/Lumbar Spine: No acute fracture of the thoracic spine. Vertebral body heights are maintained. No spondylolisthesis. Minimal degenerative changes. No acute fracture of the lumbar spine. No spondylolisthesis. Posterior fusion changes at L4-L5. Mild degenerative changes of the upper lumbar spine. [facility] Jesusita Quintanilla MD - 04/14/2022 EXAMINATION: CT OF THE CHEST, ABDOMEN, AND PELVIS WITH CONTRAST; CT OF THE THORACIC SPINE WITHOUT CONTRAST; CT OF THE LUMBAR SPINE WITHOUT CONTRAST 04/14/2022 7:27 pm TECHNIQUE: CT of the chest, abdomen and pelvis was performed with the administration of Isovue 370 intravenous contrast. Multiplanar reformatted images are provided for review. Automated exposure control, iterative reconstruction, and/or weight based adjustment of the mA/kV was utilized to reduce the radiation dose to as low as reasonably achievable. Reformatted images of the thoracic and lumbar spine were obtained. COMPARISON: None HISTORY: Acute pain status post fall. FINDINGS: Chest: Mediastinum: Heart is not enlarged. Prosthetic mitral valve. No pericardial effusion. Thoracic aorta is normal caliber. No lymphadenopathy. 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 Esophagus is unremarkable. Lungs/pleura: Mild biapical scarring and minimal dependent atelectasis. No consolidation, pleural effusion, or pneumothorax. Soft Tissues/Bones: Left chest pacemaker. Osteopenia without acute osseous abnormality. Abdomen/Pelvis: Organs: Scattered liver lesions measuring up to 8 cm have the appearance of a hemangiomas. Remaining solid organs and the gallbladder are unremarkable. GI/Bowel: No acute abnormality. Pelvis: Bladder is unremarkable. Uterus is retroverted and contains calcified fibroids. No lymphadenopathy or free fluid. Peritoneum/Retroperi toneum: No ascites, free intraperitoneal air, or ascites. Abdominal aorta is normal caliber. Bones/Soft Tissues: Osteopenia without acute osseous abnormality. Mild osteoarthrosis of the hips. Thoracic/Lumbar Spine: No acute fracture of the thoracic spine. Vertebral body heights are maintained. No spondylolisthesis. Minimal degenerative changes. No acute fracture of the lumbar spine. No spondylolisthesis. Posterior fusion changes at L4-L5. Mild degenerative changes of the upper lumbar spine. IMPRESSION: 1. No acute findings within the chest, abdomen common pelvis or within the thoracolumbar spine. 2. Multiple liver lesions measuring up to 8 cm are likely hemangiomas. 3. Calcified uterine fibroids. [facility] Work Phone: [facility] Radiology Study observation (narrative) weendy Work Phone: No Panel InformationOrdered By: Jesusita Quintanilla on 04-14-2022 [facility] Work Phone: PROF CHEM 8 (BAS METB)on Potassium [Moles/Vol] 4.1 mmol/L Normal 3.5-5.1 [facility] Comment on above: Performed By: #### B MP #### [facility] [address] [address] [address] Brii Humphries Anion gap [Moles/Vol] 7.5 mmol/L Normal [facility] Comment on above: Performed By: #### B MP #### [facility] [address] [address] [address] Brii Humphries Calcium [Mass/Vol] 10.6 mg/dL Critically high 8.5-10.1 [facility] Comment on above: Performed By: #### B MP #### [facility] [address] [address] [address] Brii Humphries Chloride [Moles/Vol] 106 mmol/L Normal 98-[address] [facility] Comment on above: Performed By: #### B MP #### [facility] [address] [place] [address] Dr. Brii Humphries CO2 [Moles/Vol] 28.6 mmol/L Normal 21.0-32.0 [facility] Comment on above: Performed By: #### B MP #### [facility] [address] [address] [address] Brii Humphries Creatinine [Mass/Vol] 0.90 mg/dL Normal 0.55-1.[address] [facility] Comment on above: Performed By: #### B MP #### [facility] [address] [place] [address] Dr. Brii Humphries EGFR-AF SIERRA LEONEAN >60 Normal >=60 [facility] Comment on above: Performed By: #### B MP #### [facility] [address] [address] [address] Brii Humphries EGFR-NON AF SIERRA LEONEAN =60 Normal >=[address] [facility] Comment on above: Performed By: #### B MP #### [facility] [address] [address] [address] Brii Humphries Glucose [Mass/Vol] 106 mg/dL Normal 74-106 [facility] Comment on above: Performed By: #### B MP #### [facility] [address] [address] [address] Brii Humphries Sodium [Moles/Vol] 138 mmol/L Normal 136-145 [facility] Comment on above: Performed By: #### B MP #### [facility] [address] [place] [address] Dr. Brii Humphries Urea nitrogen [Mass/Vol] 22.0 mg/dL Critically high 7.0-18.[address] [facility] Comment on above: Performed By: #### B MP #### [facility] [address] [place] [address] Dr. Brii Humphries Urea nitrogen/Creatinine [Mass ratio] 24.4 mg/mg Normal [facility] Comment on above: Performed By: #### B MP #### [facility] [address] [place] [address] Dr. Brii Humphries PROTIMEon 04-14-2022 PT Coag (PPP) [Time] 10.9 s Normal 9.0-11.6 [facility] Comment on above: Performed By: #### P TT, PT #### [facility] [address] [place] [address] Dr. Brii Humphries INR Coag (PPP) [Relative time] 1.01 {INR} Normal [facility] Comment on above: Performed By: #### P TT, PT #### [facility] [address] [place] [address] Dr. Brii Humphries INR GUIDELINES SEE BELOW Normal [facility] Comment on above: Result Comment: RAMSEY RED INR: 2.0 - 3.0 CONDITIONS NOT LISTED BELOW 2.5 - 3.5 FOR PROSTHETIC HEART VALVE REPLACEMENT 2.5 - 3.5 RECURRENT THROMBOSIS Performed By: #### P TT, PT #### [facility] [address] [place] [address] Dr. Brii Humphries PTTon 04-14-2022 aPTT Coag (Bld) [Time] 29.1 s Normal 22.3-36.2 [facility] Comment on above: Performed By: #### P TT, PT #### [facility] [address] [place] [address] Dr. Brii Humphries T4, Freeon 04-14-2022 Thyroxine, Free 1.18 ng/dL 0.93 - 1.70 ng/dL [facility] TROPONIN, HIGH SENSITIVITYon 04-14-2022 HSTROP 12.5 pg/mL Normal 4.0-51.3 [facility] Comment on above: Result Comment: CUT- OFF POINTS HAVE BEEN ESTABLISHED BASED ON THE FOURTH UNIVERSAL DEFINITIONS OF MYOCARDIAL INFARCTION. THE UPPER REFERENCE LIMIT (URL) OF TROPONIN, DEFINED THE 99TH PERCENTILE OF cTnI DISTRIBUTION IN A REFERENCE POPULATION, HAS BEEN CONFIRMED THE DECISION THRESHOLD FOR NE DIAGNOSIS. Performed By: #### H STROPN ####[facility] [address] [place], [place] [address]Ew. Brii Humphries TSHon 04-14-2022 TSH Qn 3.10 m[IU]/L [facility] TYPE AND SCREENon 04-14-2022 ABO/Rh Positive [facility] Arm Band Number [id number] [facility] Expiration Date 04/17/2022,[address] [facility] Thyroid Stim. Horm.on 2021 Thyroid Stim. Horm. 3.10 uIU/mL Normal 0.30-5.[address] [facility] Comment on above: Performed By: #### F T4, TSH, VD25, B12, ERTPF, GLYHGB, ALB ####[facility] [place] [address] Lab Director: Yordan Lr MD Performed By: #### G LYHGB, ALB, ERTPF, B12, FT4, TSH, VD25 #### [facility] [address] [place], [place] [id number] Procurement Intern: Yordan Lr MD Thyroxine, Freeon 04-14-2022 Thyroxine, Free 1.18 ng/dL Normal 0.93-1.70 [facility] Comment on above: Performed By: #### F T4, TSH, VD25, B12, ERTPF, GLYHGB, ALB ####[facility] [place], [place] [id number] Lab Director: Yordan Lr MD Performed By: #### G LYHGB, ALB, ERTPF, B12, FT4, TSH, VD25 #### [facility] [address] [place] [address] Procurement Intern: Yordan Lr MD Trauma Panelon 04-14-2022 Anion gap [Moles/Vol] 13 mmol/L 9 - 17 mmol/L we[facility]y aPTT Coag (Bld) [Time] 24.8 s [facility] Comment on above: IV Heparin Therapy Range: 48.6-77.8 Blood Bank Specimen BILL FOR SERVICES PERFORMED [facility] Carboxyhemoglobin 5.6 % High 0 - 5 % [facility] Comment on above: Reference Range: Non-Smokers 0-2% Average Smoker 2-4% Heavy Smoker <10% Chloride [Moles/Vol] 103 mmol/L 98 - 10 7 mmol/L we[facility] CO2 [Moles/Vol] 17 mmol/L Low 20 - 31 mmol/L [facility] Creatinine [Mass/Vol] 0.71 mg/dL 0.50 - 0.90 mg/dL [facility] Ethanol [Mass/Vol] mg/dL NINF - 10 mg/dL [facility] Ethanol percent <0.010 NINF - 0.010 % weendy FIO2 INFORMATION NOT PROVIDED [facility] GFR/1.73 sq M.predicted MDRD (S/P/Bld) [Vol rate/Area] - PINF [facility] Comment on above: Effective Mar 11, 2022 These results are not intended for use in patients <18 years of age. eGFR results are calculated without a race factor using the 2020 CKD-EPI equation. Careful clinical correlation is recommended, particularly when comparing to results calculated using previous equations. The CKD-EPI equation is less accurate in patients with extremes of muscle mass, extra-renal metabolism of creatine, excessive creatine ingestion, or following therapy that affects renal tubular secretion. Glucose [Mass/Vol] 104 mg/dL High 70 - 99 mg/dL [facility] hCG Qual Negative NEGATIVE [facility] Comment on above: Specimens with hCG l evels near the threshold of the test (25 mIU/mL) may give a negative or indeterminate result. In such cases, another test should be performed with a new specimen in 48-72 hours. If early is suspected clinically in this setting, correlation with quantitative serum b-hCG level is suggested. [facility] has confirmed the use of plasma for this test. This has not been cleared or approved by the U.S. Food and Drug Administration. The FDA has determined that such clearance is not necessary. HCO3 (Bld) [Moles/Vol] 20.1 mmol/L Low 24 - 30 mmol/L [facility] Hematocrit (Bld) [Volume fraction] 40.9 % 36.3 - 47.1 % [facility] Hemoglobin (Bld) [Mass/Vol] 13.6 g/dL 11.9 - 15.1 g/dL [facility] INR Coag (Bld) [Relative time] 1.0 {INR} [facility] Comment on above: Therapeutic Range: Moderate Anticoagulant Intensity: INR = 2.0-3.0 High Anticoagulant Intensity: INR = 2.5-3.5 Interpretation and review of laboratory results Abnormal [facility] MCH (RBC) [Entitic mass] 29.6 pg 25.2 - 33.5 pg [facility] MCHC (RBC) [Mass/Vol] 33.3 g/dL 28.4 - 34.8 g/dL [facility] MCV (RBC) [Entitic vol] 89.1 fL 82.6 - 102.9 fL [facility] Negative Base Excess, Uri 1.3 mmol/L 0.0 - 2.0 mmol/L [facility] NRBC Automated 0.0 0.0 per 100 WBC [facility] Oxygen saturation in Blood 97.0 % High 60.0 - 85.0 % [facility] pCO2, Uri 26.1 Low [facility] pH, Uri 7.499 High 7.320 - 7.420 [facility] Platelet distribution width (Bld) [Ratio] 12.5 % 11.8 - 14.4 % [facility] Platelet mean volume (Bld) [Entitic vol] 9.8 fL 8.1 - 13.5 fL [facility] Platelets (Bld) [#/Vol] 162 10*3/uL [facility] pO2, Uri 74.5 High [facility] Pt Temp 37.0 [facility] RBC (Bld) [#/Vol] 4.59 10*6/uL 3.95 - 5.1 1 m/uL [facility] Sodium [Moles/Vol] 133 mmol/L Low 135 - 144 mmol/L [facility] Urea nitrogen (BldV) [Mass/Vol] 19 mg/dL 8 - 23 mg/dL [facility] WBC (Bld) [#/Vol] 7.8 10*3/uL [facility] Trauma Profileon 04-14-2022 Anion gap [Moles/Vol] 13 mmol/L Normal 9-17 [facility] Comment on above: Performed By: #### F T4, TSH, VD25, B12, ERTPF, GLYHGB, ALB ####[facility] [address] [place] [address] Lab Director: Yordan Lr MD Performed By: #### G LYHGB, ALB, ERTPF, B12, FT4, TSH, VD25 #### [facility] [address] [place] [address] Procurement Intern: Yordan Lr MD Chloride [Moles/Vol] 103 mmol/L Normal 98-[address] [facility] Comment on above: Performed By: #### F T4, TSH, VD25, B12, ERTPF, GLYHGB, ALB ####[facility] [place] [address] Lab Director: Yordan Lr MD Performed By: #### G LYHGB, ALB, ERTPF, B12, FT4, TSH, VD25 #### [facility] [address] [place] [address] Procurement Intern: Yordan Lr MD CO2 [Moles/Vol] 17 mmol/L Low 20-31 [facility] Comment on above: Performed By: #### F T4, TSH, VD25, B12, ERTPF, GLYHGB, ALB ####[address] [address] [facility] Director: Yordan Lr MD Performed By: #### G LYHGB, ALB, ERTPF, B12, FT4, TSH, VD25 #### [address] [address] Procurement Intern: Yordan Lr MD Creatinine [Mass/Vol] 0.71 mg/dL Normal 0.50-0.90 [facility] Comment on above: Performed By: #### F T4, TSH, VD25, B12, ERTPF, GLYHGB, ALB ####[address] [address] [facility] Director: Yordan Lr MD Performed By: #### G LYHGB, ALB, ERTPF, B12, FT4, TSH, VD25 #### [address] [address] Procurement Intern: Yordan Lr MD Ethanol [Mass/Vol] mg/dL Normal <10 [facility] Comment on above: Performed By: #### F T4, TSH, VD25, B12, ERTPF, GLYHGB, ALB ####[address] [address] Lab Director: Yordan Lr MD Performed By: #### G LYHGB, ALB, ERTPF, B12, FT4, TSH, VD25 #### [address] [address] Procurement Intern: Yordan Lr MD Ethanol percent <0.010 Normal <0.010 [facility] Comment on above: Performed By: #### F T4, TSH, VD25, B12, ERTPF, GLYHGB, ALB ####[address] [address] [facility] Director: Yordan Lr MD Performed By: #### G LYHGB, ALB, ERTPF, B12, FT4, TSH, VD25 #### [address] [id number] Procurement Intern: Yordan Lr MD GFR/1.73 sq M.predicted among non-blacks MDRD (S/P/Bld) [Vol rate/Area] mL/min/{1.73_m2} Normal >60 [facility] Comment on above: Result Comment: Effective Mar 11, 2022 These results are not intended for use in patients <18 years of age. eGFR results are calculated without a race factor using the 2020 CKD-EPI equation. Careful clinical correlation is recommended, particularly when comparing to results calculated using previous equations. The CKD-EPI equation is less accurate in patients with extremes of muscle mass, extra-renal metabolism of creatine, excessive creatine ingestion, or following therapy that affects renal tubular secretion. Performed By: #### F T4, TSH, VD25, B12, ERTPF, GLYHGB, ALB ####[address] [address] Lab Director: Yordan Lr MD Performed By: #### G LYHGB, ALB, ERTPF, B12, FT4, TSH, VD25 #### [address] [address] Procurement Intern: Yordan Lr MD Glucose [Mass/Vol] 104 mg/dL High 70-99 [facility] Comment on above: Performed By: #### F T4, TSH, VD25, B12, ERTPF, GLYHGB, ALB ####[address] [id number] Lab Director: Yordan Lr MD Performed By: #### G LYHGB, ALB, ERTPF, B12, FT4, TSH, VD25 #### [address] [id number] Procurement Intern: Yordan Lr MD Potassium [Moles/Vol] 4.1 mmol/L Normal 3.7-5.3 [facility] Comment on above: Performed By: #### F T4, TSH, VD25, B12, ERTPF, GLYHGB, ALB ####[address] [address] [facility] Director: Yordan Lr MD Performed By: #### G LYHGB, ALB, ERTPF, B12, FT4, TSH, VD25 #### [address] [address] Procurement Intern: Yordan Lr MD Sodium [Moles/Vol] 133 mmol/L Low 135-144 [facility] Comment on above: Performed By: #### F T4, TSH, VD25, B12, ERTPF, GLYHGB, ALB ####[address] [address] Lab Director: Yordan Lr MD Performed By: #### G LYHGB, ALB, ERTPF, B12, FT4, TSH, VD25 #### [address] [address] Procurement Intern: Yordan Lr MD Urea nitrogen [Mass/Vol] 19 mg/dL Normal 8-23 [facility] Comment on above: Performed By: #### F T4, TSH, VD25, B12, ERTPF, GLYHGB, ALB ####[address] [address] Lab Director: Yordan Lr MD Performed By: #### G LYHGB, ALB, ERTPF, B12, FT4, TSH, VD25 #### [address] [address] Procurement Intern: Yordan Lr MD Body Temp. 37.0 Normal [facility] Comment on above: Performed By: #### F T4, TSH, VD25, B12, ERTPF, GLYHGB, ALB ####[address] [address] Lab Director: Yordan Lr MD Performed By: #### G LYHGB, ALB, ERTPF, B12, FT4, TSH, VD25 #### [address] [address] Procurement Intern: Yordan Lr MD Carboxy Hgb 5.6 % High 0-5 [facility] Comment on above: Result Comment: Reference Range: Non-Smokers 0-2% Average Smoker 2-4% Heavy Smoker <10% Performed By: #### F T4, TSH, VD25, B12, ERTPF, GLYHGB, ALB ####[address] [address] Lab Director: Yordan Lr MD Performed By: #### G LYHGB, ALB, ERTPF, B12, FT4, TSH, VD25 #### [address] [address] Procurement Intern: Yordan Lr MD FIO2 INFORMATION NOT PROVIDED Normal [facility] Comment on above: Performed By: #### F T4, TSH, VD25, B12, ERTPF, GLYHGB, ALB ####[address] [address] Lab Director: Yordan Lr MD Performed By: #### G LYHGB, ALB, ERTPF, B12, FT4, TSH, VD25 #### [address] [address] Procurement Intern: Yordan Lr MD HCO3 (Bld) [Moles/Vol] 20.1 mmol/L Low 24-30 [facility] Comment on above: Performed By: #### F T4, TSH, VD25, B12, ERTPF, GLYHGB, ALB ####[address] [address] Lab Director: Yordan Lr MD Performed By: #### G LYHGB, ALB, ERTPF, B12, FT4, TSH, VD25 #### [facility] [address] [place] [address] Procurement Intern: Yordan Lr MD Negative Base Excess 1.3 mmol/L Normal 0.0-2.[address] [facility] Comment on above: Performed By: #### F T4, TSH, VD25, B12, ERTPF, GLYHGB, ALB ####[facility] [address] [place] [address] [facility] Director: Yordan Lr MD Performed By: #### G LYHGB, ALB, ERTPF, B12, FT4, TSH, VD25 #### [facility] [address] [place] [address] Procurement Intern: Yordan Lr MD Oxygen saturation in Blood 97.0 % High 60.0-85.0 [facility] Comment on above: Performed By: #### F T4, TSH, VD25, B12, ERTPF, GLYHGB, ALB ####[facility] [address] [place] [address] Lab Director: Yordan Lr MD Performed By: #### G LYHGB, ALB, ERTPF, B12, FT4, TSH, VD25 #### [facility] [address] [place] [address] Procurement Intern: Yordan Lr MD pCO2 26.1 mm Hg Low 39-55 [facility] Comment on above: Performed By: #### F T4, TSH, VD25, B12, ERTPF, GLYHGB, ALB ####[address] [address] Lab Director: Yordan Lr MD Performed By: #### G LYHGB, ALB, ERTPF, B12, FT4, TSH, VD25 #### [facility] [address] [place] [address] Procurement Intern: Yordan Lr MD pH (Bld) 7.499 [pH] High 7.320-7.420 [facility] Comment on above: Performed By: #### F T4, TSH, VD25, B12, ERTPF, GLYHGB, ALB ####[address] [address] Lab Director: Yordan Lr MD Performed By: #### G LYHGB, ALB, ERTPF, B12, FT4, TSH, VD25 #### [address] [address] Procurement Intern: Yordan Lr MD pO2 74.5 mm Hg High 30-50 [facility] Comment on above: Performed By: #### F T4, TSH, VD25, B12, ERTPF, GLYHGB, ALB ####[address] [address] Lab Director: Yordan Lr MD Performed By: #### G LYHGB, ALB, ERTPF, B12, FT4, TSH, VD25 #### [address] [address] Procurement Intern: Yordan Lr MD HCG Screen, Blood Negative Normal [facility] Comment on above: Result Comment: Spec imens with hCG levels near the threshold of the test (25 mIU/mL) may give a negative or indeterminate result. In such cases, another test should be performed with a new specimen in 48-72 hours. If early is suspected clinically in this setting, correlation with quantitative serum b-hCG level is suggested. [employer] has confirmed the use of plasma for this test. This has not been cleared or approved by the U.S. Food and Drug Administration. The FDA has determined that such clearance is not necessary. Performed By: #### F T4, TSH, VD25, B12, ERTPF, GLYHGB, ALB ####[place] [id number] [facility] Director: Yordan Lr MD Performed By: #### G LYHGB, ALB, ERTPF, B12, FT4, TSH, VD25 #### [place] [id number] Procurement Intern: Yordan Lr MD aPTT Coag (Bld) [Time] 24.8 s Normal 20.5-30.5 [facility] Comment on above: Result Comment: IV Heparin Therapy Range: 48.6-77.8 Performed By: #### F T4, TSH, VD25, B12, ERTPF, GLYHGB, ALB ####[place] [address] [facility] Director: Yordan Lr MD Performed By: #### G LYHGB, ALB, ERTPF, B12, FT4, TSH, VD25 #### [place] [id number] Procurement Intern: Yordan Lr MD INR Coag (PPP) [Relative time] 1.0 {INR} Normal [facility] Comment on above: Result Comment: Therapeutic Range: Moderate Anticoagulant Intensity: INR = 2.0-3.0 High Anticoagulant Intensity: INR = 2.5-3.5 Performed By: #### F T4, TSH, VD25, B12, ERTPF, GLYHGB, ALB ####[place] [address] Lab Director: Yordan Lr MD Performed By: #### G LYHGB, ALB, ERTPF, B12, FT4, TSH, VD25 #### [place] [id number] Procurement Intern: Yordan Lr MD PT Coag (PPP) [Time] 10.9 s Normal 9.1-12.[address] [facility] Comment on above: Performed By: #### F T4, TSH, VD25, B12, ERTPF, GLYHGB, ALB ####[address] [id number] Lab Director: Yordan Lr MD Performed By: #### G LYHGB, ALB, ERTPF, B12, FT4, TSH, VD25 #### [address] [id number] Procurement Intern: Yordan Lr MD Erythrocyte distribution width (RBC) [Ratio] 12.5 % Normal 11.0-15.0 [facility] Comment on above: Performed By: #### F T4, TSH, VD25, B12, ERTPF, GLYHGB, ALB ####[address] [address] [facility] Director: Yordan Lr MD Performed By: #### G LYHGB, ALB, ERTPF, B12, FT4, TSH, VD25 #### [address] [address] Procurement Intern: Yordan Lr MD Performed By: #### C BC #### [place] [address] Dr. Brii Humphries Hematocrit (Bld) [Volume fraction] 40.9 % Normal 36.3-47.1 [facility] Comment on above: Performed By: #### F T4, TSH, VD25, B12, ERTPF, GLYHGB, ALB ####[address] [address] Lab Director: Yordan Lr MD Performed By: #### G LYHGB, ALB, ERTPF, B12, FT4, TSH, VD25 #### [address] [phone] Procurement Intern: Yordan Lr MD Hemoglobin (Bld) [Mass/Vol] 13.6 g/dL Normal 11.9-15.1 [facility] Comment on above: Performed By: #### F T4, TSH, VD25, B12, ERTPF, GLYHGB, ALB ####[facility] [address] [place] [address] [facility] Director: Yordan Lr MD Performed By: #### G LYHGB, ALB, ERTPF, B12, FT4, TSH, VD25 #### [address] [address] Procurement Intern: Yordan Lr MD MCH (RBC) [Entitic mass] 29.6 pg Normal 25.2-33.5 [facility] Comment on above: Performed By: #### F T4, TSH, VD25, B12, ERTPF, GLYHGB, ALB ####[place] [address] [facility] Director: Yordan Lr MD Performed By: #### G LYHGB, ALB, ERTPF, B12, FT4, TSH, VD25 #### [address] [address] Procurement Intern: Yordan Lr MD MCHC (RBC) [Mass/Vol] 33.3 g/dL Normal 28.4-34.8 [facility] Comment on above: Performed By: #### F T4, TSH, VD25, B12, ERTPF, GLYHGB, ALB ####[place] [address] [facility] Director: Yordan Lr MD Performed By: #### G LYHGB, ALB, ERTPF, B12, FT4, TSH, VD25 #### [address] [address] Procurement Intern: Yordan Lr MD MCV (RBC) [Entitic vol] 89.1 fL Normal 82.6-102.9 [facility] Comment on above: Performed By: #### F T4, TSH, VD25, B12, ERTPF, GLYHGB, ALB ####[address] [address] Lab Director: Yordan Lr MD Performed By: #### G LYHGB, ALB, ERTPF, B12, FT4, TSH, VD25 #### [address] [address] Procurement Intern: Yordan Lr MD NRBC Automated 0.0 per 100 WBC Normal 0.0 [facility] Comment on above: Performed By: #### F T4, TSH, VD25, B12, ERTPF, GLYHGB, ALB ####[address] [address] Lab Director: Yordan Lr MD Performed By: #### G LYHGB, ALB, ERTPF, B12, FT4, TSH, VD25 #### [address] [address] Procurement Intern: Yordan Lr MD Platelet mean volume (Bld) [Entitic vol] 9.8 fL Normal 8.1-13.5 [facility] Comment on above: Performed By: #### F T4, TSH, VD25, B12, ERTPF, GLYHGB, ALB ####[address] [address] Lab Director: Yordan Lr MD Performed By: #### G LYHGB, ALB, ERTPF, B12, FT4, TSH, VD25 #### [address] [address] Procurement Intern: Yordan Lr MD Platelets (Bld) [#/Vol] 162 10*3/uL Normal 138-453 [facility] Comment on above: Performed By: #### F T4, TSH, VD25, B12, ERTPF, GLYHGB, ALB ####[address] [address] Lab Director: Yordan Lr MD Performed By: #### G LYHGB, ALB, ERTPF, B12, FT4, TSH, VD25 #### [facility] wh[address] [place] [address] Procurement Intern: Yordan Lr MD RBC (Bld) [#/Vol] 4.59 10*6/uL Normal 3.95-5.11 [facility] Comment on above: Performed By: #### F T4, TSH, VD25, B12, ERTPF, GLYHGB, ALB ####[facility] [address] [place] [address] [phone] Director: Yordan Lr MD Performed By: #### G LYHGB, ALB, ERTPF, B12, FT4, TSH, VD25 #### [address] [address] Procurement Intern: Yordan Lr MD WBC (Bld) [#/Vol] 7.8 10*3/uL Normal 3.5-11.3 [facility] Comment on above: Performed By: #### F T4, TSH, VD25, B12, ERTPF, GLYHGB, ALB ####[facility] [address] [place] [address] [phone] Director: Yordan Lr MD Performed By: #### G LYHGB, ALB, ERTPF, B12, FT4, TSH, VD25 #### [facility] [place] [address] Procurement Intern: Yordan Lr MD Blood Bank BILL FOR SERVICES PERFORMED Normal [facility] Comment on above: Performed By: #### F T4, TSH, VD25, B12, ERTPF, GLYHGB, ALB ####[facility] [address] [place] [address] Lab Director: Yordan Lr MD Performed By: #### G LYHGB, ALB, ERTPF, B12, FT4, TSH, VD25 #### [facility] [address] [place] [address] Procurement Intern: Yordan Lr MD Type + Screenon 04-14-2022 Type + Screen Sample Expiration 04/17/2022,2359 Arm Band Number BE [id number] ABO/Rh(D) A POSITIVE Antibody Screen NEGATIVE Normal [facility] Comment on above: Performed By: #### T YS #### [facility] [address] [place] [address] Procurement Intern: Yordan Lr MD Performed By: #### T YS ####[facility] [place] [address] Lab Director: Yordan Lr MD Urinalysis with Reflex to Cu ltureon 04-14-2022 Bilirubin Urine Negative NEGATIVE [facility] Color, UA Yellow Yellow [facility] Glucose, Ur Negative NEGATIVE [facility] Interpretation and review of laboratory results Abnormal [facility] Ketones Ql (U) TRACE Abnormal NEGATIVE [facility] Leukocyte esterase Test strip Ql (U) Negative NEGATIVE [facility] Nitrite, Urine Negative NEGATIVE [facility] pH, UA 6.5 5.0 - 8.0 [facility] Protein, UA Negative NEGATIVE [facility] Specific [place], UA 1.047 High 1.005 - 1.030 [facility] Turbidity UA Clear Clear [facility] Urinalysis Comments Microscopic exam not performed based on chemical results unless requested in original order. [facility] Urine Hgb Negative NEGATIVE [facility] Urobilinogen, Urine Normal Normal [facility] Vitamin B12on 04-14-2022 Cobalamin (Vitamin B12) [Mass/Vol] 721 pg/mL Normal 232-1245 [facility] Comment on above: Performed By: #### F T4, TSH, VD25, B12, ERTPF, GLYHGB, ALB ####[facility] [address] [place] [address] Lab Director: Yordan Lr MD Performed By: #### G LYHGB, ALB, ERTPF, B12, FT4, TSH, VD25 #### [facility] [address] [place], [place] [phone] Procurement Intern: Yordan Lr MD Cobalamin (Vitamin B12) [Mass/Vol] 721 pg/mL 232 - 1245 pg/mL [facility] Vitamin D 25 Hydroxyon 04-14 Vit D, 25-Hydroxy 33.6 ng/mL 29.9 - PIN F ng/mL [facility] Comment on above: Reference Range: Vitamin D status Range Deficiency <20 ng/mL Mild Deficiency 20-30 ng/mL Sufficiency 30-100 ng/mL Toxicity >100 ng/mL [facility] Vitamin D 25 OHon 04-14-2022 Vitamin D 25 OH 33.6 ng/mL Normal >29.9 [facility] Comment on above: Result Comment: Reference Range: Vitamin D status Range Deficiency <20 ng/mL Mild Deficiency 20-30 ng/mL Sufficiency 30-100 ng/mL Toxicity >100 ng/mL Performed By: #### F T4, TSH, VD25, B12, ERTPF, GLYHGB, ALB ####[facility] [place], [place] [id number] lab Director: Yordan Lr MD Performed By: #### G LYHGB, ALB, ERTPF, B12, FT4, TSH, VD25 ####[facility] [place] 8960008 lab Director: Yordan Lr MD XR HAND SHAUNA MIN 3Von 022 XR HAND SHAUNA MIN 3V EXAM: XR HAND SHAUNA MIN 3V HISTORY: Bilateral hand pain COMPARISON: None. TECHNIQUE: 3 views of each hand FINDINGS: No fracture, dislocation, subluxation or osseous lesion. Scattered age-related degenerative changes most pronounced on the right at the first IP joint and on the left at the carpometacarpal articulation. Bilateral positive ulnar variance. IMPRESSION: No acute abnormality Electronically authenticated by: MANUEL KOCH Date: 2022-04-14 16:53 Normal [facility] PTH INTACTon 04-11-2022 PTH, Intact 37 pg/mL Normal 15-65 [facility] Comment on above: Performed By: #### P THINT #### [facility] [address] [place], [place] [address] Dr. Brii Humphries CBC AUTO DIFFon 04-09-2022 BASO # 0.0 103/ul Normal 0.0-0.1 [facility] Comment on above: Performed By: #### C BC ####[facility] [address] [place] [phone] Humphries Basophils/100 WBC (Bld) 0.6 % Normal 0.2-2.0 [facility] Comment on above: Performed By: #### C BC ####[facility] [address] [place] [address]DrChi Humphries EO # 0.2 103/ul Normal 0.0-0.7 [facility] Comment on above: Performed By: #### C BC ####[facility] [address] [place] [phone] Humphries Eosinophils/100 WBC (Bld) 4.4 % Normal 0.9-7.[address] [facility] Comment on above: Performed By: #### C BC ####[facility] [address] [place] [phone] Humphries Erythrocyte distribution width (RBC) [Ratio] 12.7 % Normal 11.0-15.0 [facility] Comment on above: Performed By: #### C BC ####[facility] [address] [place] [phone] Humphries Hematocrit (Bld) [Volume fraction] 40.5 % Normal 36.0-48.0 [facility] Comment on above: Performed By: #### C BC ####[facility] [address] [place] [phone] Humphries Hemoglobin (Bld) [Mass/Vol] 13.0 g/dL Normal 12.0-16.0 [facility] Comment on above: Performed By: #### C BC ####[facility] [address] [place] [phone]. Brii Humphries IG # 0.01 10e3/ul Normal 0.00-0.[address] [facility] Comment on above: Performed By: #### C BC ####[facility] [address] [place] [phone]. Brii Humphries IG % 0.2 % Normal 0.0-0.[address] [facility] Comment on above: Performed By: #### C BC ####[facility] [address] [place] [phone]. Brii Humphries LYMPH # 1.2 103/ul Normal 1.2-3.8 [facility] Comment on above: Performed By: #### C BC ####[facility] [address] [place] [address]Dr. Brii Humphries Lymphocytes/100 WBC (Bld) 24.3 % Normal 20.5-60.[address] [facility] Comment on above: Performed By: #### C BC ####[facility] [address] [place] [address]Dr. Brii Humphries MANUAL DIFF REQ NO Normal [facility] Comment on above: Performed By: #### C BC ####[facility] [address] [place] [phone]. Brii Humphries MCH (RBC) [Entitic mass] 28.7 pg Normal 26.7-34.[address] [facility] Comment on above: Performed By: #### C BC ####[facility] [address] [place], [place] [address]Dr. Brii Humphries MCHC (RBC) [Mass/Vol] 32.1 g/dL Normal 29.9-35.2 [facility] Comment on above: Performed By: #### C BC ####[facility] [address] [place] [phone]. Brii Humphries MCV (RBC) [Entitic vol] 89.4 fL Normal 81.0-99.[address] [facility] Comment on above: Performed By: #### C BC ####[facility] [address] [place] [phone]. Brii Humphries MONO # 0.4 103/ul Normal 0.3-0.8 [facility] Comment on above: Performed By: #### C BC ####[facility] [address]oslj[address] [place] [phone]. Brii Humphries Monocytes/100 WBC (Bld) 7.8 % Normal 1.7-12.0 [facility] Comment on above: Performed By: #### C BC ####[facility] [address]af[address] [place] [phone]. Brii Humphries NEUT # 3.1 103/ul Normal 1.4-6.5 [facility] Comment on above: Performed By: #### C BC ####[facility] [address] [place] [phone]. Brii Humphries Neutrophils/100 WBC (Bld) 62.7 % Normal 43.0-75.0 [facility] Comment on above: Performed By: #### C BC ####[facility] [address] [place] [phone]. Brii Humphries Platelet mean volume (Bld) [Entitic vol] 10.1 fL Normal 9.5-13.5 [facility] Comment on above: Performed By: #### C BC ####[facility] [address]mir[address] [place] [phone]. Brii Humphries PLT 199 103/ul Normal 150-450 [facility] Comment on above: Performed By: #### C BC ####[facility] [address] [place] [phone]. Brii Humphries RBC 4.53 106/ul Normal 4.20-5.40 [facility] Comment on above: Performed By: #### C BC ####[facility] [address]ms[address]72 [place] [phone]. Brii Humphries WBC 5.0 103/ul Normal 4.0-11.0 [facility] Comment on above: Performed By: #### C BC ####[facility] [address] [place] [address]Dr. Brii Hupmhries PROF CHEM 8 (BAS METB)on Anion gap [Moles/Vol] 9.9 mmol/L Normal [facility] Comment on above: Performed By: #### T SH, BMP ####[facility] [address] [place], [place] [address]Dr. Brii Humphries Calcium [Mass/Vol] 10.3 mg/dL Critically high 8.5-10.1 [facility] Comment on above: Performed By: #### T SH, BMP ####[facility] [address] [place], [place] [address]Dr. Carijesse Humphries Chloride [Moles/Vol] 105 mmol/L Normal 98-[address] [facility] Comment on above: Performed By: #### T SH, BMP ####[facility] [address] [place], [place] [address]Dr. Carijesse Humphries CO2 [Moles/Vol] 31.8 mmol/L Normal 21.0-32.0 [facility] Comment on above: Performed By: #### T SH, BMP ####[facility] [address] [place], [place] [address]Dr. Brii Humphries Creatinine [Mass/Vol] 0.80 mg/dL Normal 0.55-1.[address] [facility] Comment on above: Performed By: #### T SH, BMP ####[facility] [address] [place], [place] [address]Dr. Brii Humphries EGFR-AF SIERRA LEONEAN >60 Normal >=60 [facility] Comment on above: Performed By: #### T SH, BMP ####[facility] [address] [place], [place] [address]Dr. Brii Humphries EGFR-NON AF SIERRA LEONEAN >60 Normal >=[address] [facility] Comment on above: Performed By: #### T SH, BMP ####[facility] [address] [place], [place] [address]Dr. Brii Humphries Glucose [Mass/Vol] 109 mg/dL Critically high 74-106 [facility] Comment on above: Performed By: #### T SH, BMP ####[facility] [address] [place] [phone]. Brii Humphries Potassium [Moles/Vol] 4.7 mmol/L Normal 3.5-5.[address] [facility] Comment on above: Performed By: #### T SH, BMP ####[facility] [address]iv[address] [place] [phone]. Brii Humphries Sodium [Moles/Vol] 142 mmol/L Normal 136-145 [facility] Comment on above: Performed By: #### T SH, BMP ####[facility] [address]xdha[address] [place] [phone]. Brii Humphries Urea nitrogen [Mass/Vol] 22.0 mg/dL Critically high 7.0-18.[address] [facility] Comment on above: Performed By: #### T SH, BMP ####[facility] [address]ib[address] [place] [phone]. Brii Humphries Urea nitrogen/Creatinine [Mass ratio] 27.5 mg/mg Normal [facility] Comment on above: Performed By: #### T SH, BMP ####[facility] [address]fl[address] [place] [phone]. Brii Humphries TSHon 04-09-2022 TSH 2.719 uIU/mL Normal 0.358-3.740 [facility] Comment on above: Performed By: #### T SH, BMP ####[facility] [address] [place] [address]Dr. Brii Humphries Willian 11-26-2021 CNPN Telephone (INTMLN) AYANA ALVES ([id number]) 1940 F Date Time Provider Department 11/26/21 NOP (HISTORICAL) INTMLN During your visit today, we recorded the following information about you: Haven Gr RN 11/26/2021 2:14 PM Signed -Pt Verified by Name and Date of -pt calling to ask if there is an age limit for colonoscopies. Pt PCP not with [facility]. -advised discuss with PCP and seek referral for ANNE eval. Allergies As of Date: 11/26/2021 Noted Allergy Reaction SULFA (SULFONAMIDE ANTIBIOTICS) 04/18/2014 2 - Rash Date Reviewed: 05/03/2020 Reviewed by: Ashley Yan - Fully Assessed Reason for Visit: colonoscopy questions [Other] Prescriptions as of 11/27/2021 - bisacodyl EC (DULCOLAX) 5 mg EC tablet as directed. - clonazePAM (KLONOPIN) 0.5 mg tablet Take 0.5 mg by mouth twice daily as needed. - pantoprazole DR (PROTONIX) 40 mg tablet Take 40 mg by mouth once daily. - ferrous sulfate 325 mg (65 mg iron) tablet Take 325 mg by mouth twice daily. - spironolactone (ALDACTONE) 25 mg tablet Take 25 mg by mouth once daily. - levothyroxine (LEVO-T) 50 mcg tablet Take 50 mcg by mouth daily before breakfast. - metoprolol tartrate, short acting, (LOPRESSOR) 25 mg tablet Take 12.5 mg by mouth twice daily. - aspirin, enteric coated (ASPIRIN, ENTERIC COATED) 81 mg EC tablet Take 81 mg by mouth once daily. - fmggqqw-srjslwfvg-th tamin D3 500 mg(1,250mg) -200 unit per tablet Take 2 tablets by mouth twice daily. - donepezil (ARICEPT) 10 mg tablet Take 10 mg by mouth once daily. - ipratropium bromide (ATROVENT) 42 mcg (0.06 %) nasal spray Use 2 Sprays in the nose once daily. - OTC PRODUCT Kenzen BDZ Support Strength and Density 2 tablets once a day at bedtime - OTC PRODUCT 1 tablet three times daily. Strophantil - warfarin (COUMADIN) 10 mg tablet 10mg alternating with 15mg nightly - ALPRAZolam (XANAX) 0.25 mg tablet Take 0.25 mg by mouth three times daily. 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 Comment on above: Performed By: #### V [id number] ####[facility] [address] [place], [place] [address]EbChi Humphries US URI DOP LEG LTon 10-03-19 US URI DOP LEG LT EXAMINATION: US URI DOP LEG LT HISTORY: Pain of left lower leg COMPARISON: No relevant comparison available. TECHNIQUE: Grayscale, color and Doppler ultrasound FINDINGS: Region: Left leg Thrombus: Echogenic thrombus identified within the superficial small saphenous vein along the proximal calf. No thrombus in the deep vein system Compressibility: Partial compressibility corresponding to thrombus Flow: Absent flow corresponding to thrombus Findings discussed by the technologist with the ordering physician by telephone at the time of exam. IMPRESSION: Superficial vein thrombus identified in the proximal small saphenous vein No deep vein thrombus in the left leg *Exam performed in accordance with [facility] practice guidelines- Peripheral venous ultrasound, September 02, 2009. Electronically authenticated by: MANUEL HAYWOOD Date: 2021-10-02 16:[address] [facility] FT3on 03-16-2020 FT3 4.04 pg/mL Normal 2.45-5.93 [facility] Comment on above: Performed By: #### 4 420, 5813, 5129 #### [facility] Unless Otherwise Noted [address] [place], [place] [address] / COLA #4724/CLIA # [id number] FT4on 03-16-2020 Free T4 [Mass/Vol] 0.97 ng/dL Normal 0.78-2.44 [facility] Comment on above: Performed By: #### 4 509, 2450, 4520 #### [facility] Unless Otherwise Noted [address] [facility] [address] [place] [address] / [facility] #4724/CLIA # [id number] TSHon 03-16-2020 TSH Qn 1.36 uIU/ml Normal 0.47-4.68 [facility] Comment on above: Performed By: #### 4 675, 4180, 4520 #### [facility] Unless Otherwise Noted [address] [facility] [address] [place] [address] / [facility] #4724/CLIA # [id number] Vital Signs Date Time Vital Sign Value Performing Clinician Facility 06-30-2023 09:30-0500 Body height 152.4 cm Jessica Maxwell Other [facility] Other 06-30-2023 09:30-0500 Body mass index (BMI) [Ratio] 24.02 kg/m2 Jessica Maxwell Other [facility] Other 06-30-2023 09:30-0500 Body weight 55.79 kg Jessica Maxwell Other [facility] Other 06-30-2023 09:30-0500 Diastolic blood pressure 77 mm[Hg] Jessica Maxwell Other [facility] Other 06-30-2023 09:30-0500 SaO2% (BldA) [Mass fraction] 97 % Jessica Maxwell Other [facility] Other 06-30-2023 09:30-0500 Systolic blood pressure 134 mm[Hg] Jessica Maxwell Other [facility] Other 06-23-2023 13:30-0500 Body height 152.4 cm Jessica Maxwell Other [facility] Other 06-23-2023 13:30-0500 Body mass index (BMI) [Ratio] 24.02 kg/m2 Jessica Maxwell Other [facility] Other 06-23-2023 13:30-0500 Body weight 55.79 kg Jessica Maxwell Other [facility] Other 06-23-2023 13:30-0500 Diastolic blood pressure 76 mm[Hg] Jessica Maxwell Other [facility] Other 06-23-2023 13:30-0500 SaO2% (BldA) [Mass fraction] 100 % Jessica Maxwell Other [facility] Other 06-23-2023 13:30-0500 Systolic blood pressure 116 mm[Hg] Jessica Maxwell Other [facility] Other 02-24-2023 13:45-0400 Body height 152.4 cm Jessica Maxwell Other [facility] Other 02-24-2023 13:45-0400 Body mass index (BMI) [Ratio] 22.85 kg/m2 Jessica Maxwell Other [facility] Other 02-24-2023 13:45-0400 Body weight 53.07 kg Jessica Maxwell Other [facility] Other 02-24-2023 13:45-0400 Diastolic blood pressure 80 mm[Hg] Jessica Maxwell Other [facility] Other 02-24-2023 13:45-0400 Systolic blood pressure 121 mm[Hg] Jessica Alissa Other [facility] Other 08-21-2022 15:00-0400 Body height 152.4 cm eJb Salas Other [facility] Other 08-21-2022 15:00-0400 Body mass index (BMI) [Ratio] 22.85 kg/m2 Jeb Salas Other [facility] Other 08-21-2022 15:00-0400 Body weight 53.07 kg Jeb Salas Other [facility] Other 04-15-2022 12:00-0500 Body temperature 98.2 [degF] Edin Elder MD Work Phone: [facility] 04-15-2022 12:00-0500 Diastolic blood pressure 74 mm[Hg] Edin Elder MD Work Phone: [facility] 04-15-2022 12:00-0500 Heart rate 61 /min Edin Elder MD Work Phone: [facility] 04-15-2022 12:00-0500 SaO2% (BldA) [Mass fraction] 99 % Edin Elder MD Work Phone: [facility] 04-15-2022 12:00-0500 Systolic blood pressure 133 mm[Hg] Edin Elder MD Work Phone: [facility] 04-15-2022 04:15-0500 Respiratory rate 12 /min Edin Elder MD Work Phone: [facility] 04-14-2022 23:30-0500 Body height 154.9 cm Edin Elder MD Work Phone: [facility] 04-14-2022 23:30-0500 Body mass index (BMI) [Ratio] 21.66 kg/m2 Edin Elder MD Work Phone: [facility] 04-14-2022 23:30-0500 Body weight 52 kg Edin Elder MD Work Phone: [facility] Encounters Encounter Date Encounter Type Care Provider Facility Start: 06-30-2023 End: 06-30-2023 ambulatory Jessica Maxwell Other [facility] Other Start: 06-30-2023 Office outpatient vi sit 15 minutes Jessica Maxwell [facility] Start: 06-27-2023 End: 06-27-2023 ambulatory Jessica Maxwell Other [employer] Other Start: 06-27-2023 Telephone encounter Jessica [facility] Start: 06-23-2023 End: 06-23-2023 ambulatory Jessica Maxwell Other [employer] Other Start: 06-23-2023 Office outpatient vi sit 15 minutes Jessica Maxwell [facility] Start: 06-04-2023 End: 06-04-2023 ambulatory Jeb Salas Other [employer] Other Start: 06-04-2023 Telephone encounter Jeb Salas [facility] Start: 05-13-2023 End: 05-13-2023 ambulatory Jessica Maxwell Other [employer] Other Start: 05-13-2023 Telephone encounter Jessica Alissa [facility] Start: 05-08-2023 End: 05-08-2023 ambulatory Jessica Maxwell Other [employer] Other Start: 05-08-2023 Telephone encounter Jessica Alissa [facility] Start: 04-02-2023 End: 04-02-2023 ambulatory Jessica Maxwell Other [employer] Other Start: 04-02-2023 Telephone encounter Jessica Maxwell [facility] Start: 03-26-2023 End: 03-26-2023 ambulatory Jessica Maxwell Other [employer] Other Start: 03-26-2023 Telephone encounter Jessica Maxwell [facility] Start: 03-11-2023 End: 03-11-2023 ambulatory Jessica Maxwell Other [employer] Other Start: 03-11-2023 Telephone encounter Jessica Maxwell [facility] Start: 02-24-2023 End: 02-24-2023 ambulatory Jessica Maxwell Other [employer] Other Start: 02-24-2023 Office outpatient vi sit 15 minutes Jessica Maxwell [facility] Start: 01-22-2023 End: 01-22-2023 ambulatory Jessica Maxwell Other [employer] Other Start: 01-22-2023 Telephone encounter Jessica Maxwell [facility] Start: 12-20-2022 End: 12-20-2022 ambulatory Jessica Maxwell Other [employer] Other Start: 12-20-2022 Telephone encounter Jessica Maxwell [facility] Start: 09-24-2022 ambulatory JEB SALAS Facility: Start: 09-09-2022 End: 09-09-2022 ambulatory Jeb Salas Other [employer] Other Start: 09-09-2022 Office outpatient vi sit 15 minutes Jeb Ginna [facility] Start: 08-21-2022 End: 08-21-2022 ambulatory Jeb Salas Facility:[facility] Start: 08-21-2022 Office outpatient vi sit 15 minutes Jeb Ginna [facility] Start: 08-21-2022 End: 08-21-2022 ambulatory DO Jeb Salas [facility] Work Phone: Start: 08-21-2022 End: 08-21-2022 Patient encounter procedure DO Jeb Salas Work Phone: [facility] Start: 08-19-2022 End: 08-19-2022 ambulatory Jessica Maxwell Other [employer] Other Start: 08-19-2022 Telephone encounter Jessica Maxwell [facility] Start: 07-29-2022 End: 07-29-2022 ambulatory Jeb Salas Other [employer] Other Start: 07-29-2022 Telephone encounter Jeb Salas [facility] Start: 06-21-2022 End: 06-21-2022 ambulatory Jessica Maxwell Other [employer] Other Start: 06-21-2022 Telephone encounter Jessica Maxwell [facility] Start: 06-20-2022 End: 06-20-2022 ambulatory Jessica Maxwell Other [employer] Other Start: 06-20-2022 Telephone encounter Jessica [facility] Start: 06-09-2022 End: 07-20-[address] JESSICA MAXWELL Facility:[facility] Start: 04-23-2022 End: 04-26-2022 [facility]: 04-14-2022 End: 04-14-2022 ambulatory UNKNOWN PROVIDER Facility:[facility] Start: 04-14-2022 End: 04-15-2022 Evaluation and management of inpatient MITALI NARAYAN [facility] Start: 04-14-2022 End: 04-15-2022 Evaluation and management of inpatient Edin Elder MD Work Phone: [facility] Car 2- Stepdown Comment on above: Subdural hematoma (P rimary Dx) Start: 04-14-2022 End: 04-14-2022 ambulatory SHRUTHI GALVAN . Facility:[facility] Start: 04-14-2022 Emergency department patient visit MITALI Feliciano MD [facility] Start: 04-09-2022 End: 04-10-[address] JESSICA MAXWELL Facility:[facility] Start: 04-05-2022 End: 06-08-[address] JESSICA MAXWELL Facility:[facility] Start: 04-03-2022 Adult health examination Ratna Maxwell Other [employer] Other Start: 04-03-2022 Gynecological examination normal Jessica Maxwell Other [employer] Other Start: 01-10-[address] JAYANT Catalan ty:[facility] Start: 11-26-2021 Telephone encounter [facility] (Preet soriano) [facility] Comment on above: colonoscopy question s Start: 10-05-2021 End: 10-05-2021 ambulatory Jeb Salas Other [employer] Other Start: 10-05-2021 Office outpatient vi sit 15 minutes Jeb Salas [facility] Start: 10-02-2021 End: 10-03-[address] JESSICA MAXWELL Facility:[facility] Procedures Date Procedure Procedure Detail Performing Clinician Start: 08-21-2022 Plain X-ray of left hip DO Jeb Salas Work Phone: Start: 08-21-2022 Plain X-ray of left femur DO Jeb Salas Work Phone: Start: 04-15-2022 BASIC METABOLIC PANE L W/ REFLEX TO MG FOR LOW K Vivian Ahammad DO Work Phone: Start: 04-15-2022 Blood count complete auto&auto difrntl wbc Vivian Ahammad DO Work Phone: Start: 04-14-2022 Drug tst prsmv instr mnt chem analyzers pr date Lionel Hidalgo MD Work Phone: Start: 04-14-2022 Urnls dip stick/tabl et rgnt auto w/o microscopy Lionel Hidalgo MD Work Phone: Start: 04-14-2022 Antibody screen Edin Elder MD Work Phone: Start: 04-14-2022 CT LUMBAR SPINE TRAU MA RECONSTRUCTION Lionel Hidalgo MD Work Phone: Start: 04-14-2022 CT THORACIC SPINE TR AUMA RECONSTRUCTION Lionel Hidalgo MD Work Phone: Start: 04-14-2022 Ct thorax w/contrast material Lionel Hidalgo MD Work Phone: Start: 04-14-2022 Ct head/brain w/o co ntrast material Lionel Hidalgo MD Work Phone: Start: 04-14-2022 Blood typing serologic abo Edin Elder MD Work Phone: Start: 04-14-2022 Albumin serum plasma /whole blood Edin Elder MD Work Phone: Start: 04-14-2022 TRAUMA PANEL Edin Elder MD Work Phone: Start: 02-09-2020 Adult depression scr eening assessment [facility] (Historical) Start: 05-24-2013 General examination of patient Jessica Maxwell Other Depression screening Jessica Alissa Other Screening for malign ant neoplasm of breast Jessica Maxwell Other Viral screening Jessica Alissa Other Plan of Treatment Date Care Activity Detail Author Start: 05-03-2023 DIABETES SCREEN DIABETES SCREEN [facility] Start: 04-24-2022 End: 04-24-2022 Patient encounter procedure 04/24/2022 Office Visit Neurosurgery Flower Preciado W, 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 [address] [facility] [address] [place] [address] [facility] Start: 02-07-2022 Influenza vaccination INFLUENZ A (Season Ended) [facility] Start: 01-07-2022 Influenza vaccination Flu vaccine (# 1) [facility] Start: 01-01-2022 ADVANCE DIRECTIVE DISCUSSION ADVANCE DIRECTIVE DISCUSSION [facility] Start: 02-08-2021 Adult depression screening assessment DEPRESSION SCREENING [facility] Start: 2006 BONE DENSITY BONE DENSITY [facility] Start: 2006 Pneumococcal 65+ yea rs Vaccine (1 - PCV) Pneumococcal 65+ years Vaccine (1 - PCV) [facility] Start: 2006 PNEUMOCOCCAL: 65+ (1 - PCV) PNEUMOCOCCAL: 65+ (1 - PCV) [facility] Start: 1991 Shingles vaccine (1 of 2) Shingles vaccine (1 of 2) [facility] Start: 1991 SHINGRIX VACCINE (1 of 2) SHINGRIX VACCINE (1 of 2) [facility] Start: 02-23-1960 DTaP/Tdap/Td vaccine (1 - Tdap) DTaP/Tdap/Td vaccine (1 - Tdap) [facility] Start: 02-23-1960 Urine microalbumin profile DTAP,TDAP,TD (1 - Tdap) [facility] Start: 1953 Depression Screen Depression Screen [facility] Start: 1946 COVID-19 VACCINE (#1) COVID-19 VACCI NE (#1) [facility] Start: 1941 COVID-19 Vaccine (#1) COVID-19 Vacci ne (#1) [facility] End: 04-15-2022 EKG 12 Lead EKG 12 Lead ECG Routine One Time for 1 Occurrences starting 04/15/2022 until 04/15/2022 [facility] Phone: Comment on above: One Time for 1 Occur rences starting 04/15/2022 until 04/15/2022 Oxygen therapy [[facility] Data Set] Initiate Oxygen Therapy Protocol Respiratory Care Routine As Needed until discontinued starting 04/14/2022 [facility] Phone: Comment on above: As Needed until disc ontinued starting 04/14/2022 End: 04-14-2022 Speech and language therapy regime 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 language 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 Routine One Time for 1 Occurrences starting 04/14/2022 until 04/14/2022 [facility] [employer] Phone: Comment on above: One Time for 1 Occur rences starting 04/14/2022 until 04/14/2022 End: 05-25-2022 Spirometry panel Incentive spirometry Respiratory Care Routine Every 1hr while awake for 41 Days starting 04/14/2022 until 05/25/2022 [facility] Phone: Comment on above: Every 1hr while awak e for 41 Days starting 04/14/2022 until 05/25/2022 End: 04-14-2022 TRAUMA PANEL TRAUMA PANEL Lab STAT One Time for 1 Occurrences starting 04/14/2022 until 04/14/2022 [facility] Phone: Comment on above: One Time for 1 Occur rences starting 04/14/2022 until 04/14/2022 Immunizations Immunization Date Immunization Notes Care Provider [facility] 03-16-2013 tetanus and diphther ia toxoids, adsorbed, preservative free, for adult use (5 Lf of tetanus toxoid and 2 Lf of diphtheria toxoid) Jessica Maxwell Other [employer] Other Payers Date Payer Category Payer Self-pay [id number] [id number] 2019 Unknown MMO MMO MEDICARE SUPPLEMENT [id number] 2019-Present [phone] [address] [place] [address] Indemnity [id number] 2006 Medicare MEDICARE MEDICAR E A AND B [id number] 2006-Present [phone] [address] [address] [place] [address] Medicare [id number] 1959 Medicare [id number] 1959 Unknown [id number] 1941 Unknown [id number] 1941 Unknown [id number] 1941 Unknown [id number] 1941 Unknown [id number] 1941 Unknown [id number] 1941 Unknown [id number] 1941 Unknown [id number] 1941 Unknown [id number] 1941 Unknown [id number] Unknown [id number] Social History Date Type Detail Facility Start: 04-18-2014 End: 04-15-2022 Tobacco smoking status NHIS Ex-smoker [facility] End: 06-09-1948 History of tobacco use Current smoker [facility] Start: 04-18-2014 End: 04-15-2022 Tobacco use and exposure Smokeless tobacco non-user [facility] Start: 05-03-2020 End: 04-15-2022 Alcohol intake Current drinker of alcohol (finding) [facility] Start: 05-03-2020 End: 04-15-2022 Alcohol intake [facility] Start: 01-12-2020 History SDOH Alcohol Frequency 2 [facility] Start: 01-12-2020 History SDOH Alcohol Std Drinks 1 [facility] Start: 1940 Sex Assigned At Female C [facility] Sex Assigned At Sex Assigned At Bir th [employer] Other History of tobacco use Cigarette Smoker [facility] Phone: Start: 04-15-2022 Tobacco Comment Smoker when sh e was 17 years old to 23 years old [facility] Phone: Start: 04-15-2022 Alcohol Comment one glass of w ine every 4 months - social [facility] Phone: Start: 1940 Sex Assigned At Not on file [facility] Phone: Start: 04-05-2022 End: 04-15-2022 Exposure to SARS-CoV-2 (event) Not sure [facility] Phone: Clinical Notes 10-05-2021 to 06-30-2023 Note Date & Type Note Facility 06-30-2023 Evaluation note Encounter Date Diagnosis Assessment Notes Jun, Other chest pain (ICD-10 - R07.89) Pt agrees to stress test and cxr. Recommened she move up her appt w cardiology. If pain increases or becomes more severe go to ER or call 911 [employer] Other 01-15-2024 Evaluation note* Encounter Date Diagnosis Assessment Notes Treatment Notes Treatment Clinical Notes Jun, Screening mammogram, encounter for (ICD-10 - Z12.31) Jun, Rhomboid muscle pain (ICD-10 - M79.18) Pt given HO on home stretches for this area. Discussed massotherapy and PT as well. [employer] Other 10-03-2023 Evaluation note* Encounter Date Diagnosis Assessment Notes Treatment Notes Treatment Clinical Notes Mar, Hypercalcemia (ICD-1 0 - E83.52) [employer] Other 09-18-2023 Evaluation note* Encounter Date Diagnosis Assessment Notes Treatment Notes Treatment Clinical Notes Feb, Chronic fatigue (ICD-10 - R53.82) Discussed differential. Discussed stress and 's health issues. Assess for anemia and metabolic abnormalities. Feb, Acquired hypothyroidism (ICD-10 - E03.9) Overdue for labs - chronic problem Feb, Bruising (ICD-10 - T14.8XXA) Discussed differential. Will obtain recent labs from [facility]. [employer] Other 07-14-2023 Evaluation note* Encounter Date Diagnosis Assessment Notes Treatment Notes Treatment Clinical Notes Dec, Vitamin D deficiency (ICD-10 - E55.9) [employer] Other 04-03-2023 Evaluation note* Encounter Date Diagnosis Assessment Notes Treatment Notes Treatment Clinical Notes Sep, Acute pain of left hip (ICD-10 - M25.552) Ayana returns today with hip flexor pain. At this juncture we have discussed the findings and diagnosis as well as personally reviewed appropriate imaging and performed interpretation of related testing and examination with the patient in office today. She does have a history of prior lumbar fusion. Her pain today is isolated to the hip flexor tendons. I have recommended physical therapy of this. She is on a blood thinner. Topical anti-inflammatories if needed. Follow-up as needed The patient has been involved in our cooperative treatment plan and agrees to move forward with treatment at this time. Patient given order for physical therapy Sep, Strain of flexor muscle of left hip, subsequent encounter (ICD-10 - S76.012D) [employer] Other 03-15-2023 Evaluation note* Encounter Date Diagnosis Assessment Notes Treatment Notes Treatment Clinical Notes Aug, Acute pain of left hip (ICD-10 - M25.552) Ayana presents with left thigh pain. At this juncture we have discussed the findings and diagnosis as well as personally reviewed appropriate imaging and performed interpretation of related testing and examination with the patient in office today. She does have a history of prior lumbar fusion and this could be some of her radicular pain but it is isolated to the thigh without radiation. Her hip overall appears benign and it does not seem to be coming from the joint although this is another possibility. At this time we will continue to monitor. She is on a blood thinner. Topical anti-inflammatories if needed. Follow-up as needed The patient has been involved in our cooperative treatment plan and agrees to move forward with treatment at this time. Ayana presents with pain to the left hip and thigh area. Radiographs reviewed and discussed. There is no abnormality or fracture noted. We will monitor this pain for now and patient is to continue gentle motion exercises and anti-inflammatory medications. Patient voices understanding and is agreeable to treatment plan. Aug, Other See orders for this visit as documented in the electronic medical record. [employer] Other 02-20-2023 Evaluation note* Encounter Date Diagnosis Assessment Notes Treatment Notes Treatment Clinical Notes Jul, Chronic fatigue (ICD-10 - R53.82) Jul, Essential (primary) hypertension (ICD-10 - I10) [employer] Other 11-07-2022 History of Present illness Narrative* Mabel Guerrero OT - 04/15/2022 4:27 PM EST Occupational Therapy Facility/Department: [facility] CAR 2- STEPDOWN Occupational Therapy Initial Assessment Name: Ayana Alves : 1940 Date of Service: 04/15/2022 Chief Complaint Patient presents with Fall No LOC, tripped walking dog, on Plavix, SDH no midline shift per report. Neuro intact Discharge Recommendations: No therapy recommended at discharge. OT Equipment Recommendations Equipment Needed: No Patient Diagnosis(es): The encounter diagnosis was Subdural hematoma. Past Medical History: has no past medical history on file. Past Surgical History: has no past surgical history on file. Assessment Assessment: Pt agreeable to OT eval this date. Pt completed simulated toileting task independently this date. Pt engaged in static and dynamic standing and reaching to floor level as well as table height with no balance deficits observed. Pt reports no concerns with independently completing all ADLs/IADLs and functional transfers/mobility upon discharge. Pt exhibits no performance deficits and will be discharged from OT services. Please reorder if future needs arise. Prognosis: Good Decision Making: Low Complexity No Skilled OT: Independent with ADL's;No OT goals identified REQUIRES OT FOLLOW-UP: No Activity Tolerance Activity Tolerance: Patient Tolerated treatment well Restrictions Restrictions/Precautions Required Braces or Orthoses?: No Position Activity Restriction Other position/activity restrictions: up with assistance Subjective General Patient assessed for rehabilitation services?: Yes Family / Caregiver Present: Yes (daughter) General Comment Comments: RN ok'd pt for OT eval this date. Pt agreeable to session and very pleasant/cooperative throughout. Pt reports pain of 1/10 to L frontal aspect of head Social/Functional History Social/Functional History Lives With: Spouse Type of Home: House Home Layout: One level Home Access: Stairs to enter with rails Entrance Stairs - Number of Steps: 5 Entrance Stairs - Rails: Left Bathroom Shower/Tub: Tub/Shower unit, Walk-in shower (pt reports only utilizing walk-in shower) Bathroom Toilet: Standard Bathroom Equipment: Hand-held shower Home Equipment: (no DME use at baseline) ADL Assistance: Independent Homemaking Assistance: Independent Homemaking Responsibilities: Yes Ambulation Assistance: Independent Transfer Assistance: Independent Active Nurse Advocate: Yes Mode of Transportation: SUV, Truck 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 Pt reports daughter lives 5 minutes away and could assist PRN Objective Safety Devices Type of Devices: Call light within reach;Nurse notified;Left in chair Restraints Restraints Initially in Place: No Bed Mobility Training Bed Mobility Training: No (pt in recliner at beginning of session and retired to recliner at session's end) Balance Sitting: Intact (pt engaged in static and dynamic sitting tasks independently) Standing: Intact (pt engaged in static and dynamic standing and reaching in all planes ~8 minutes with no deficits, no external support) Transfer Training Transfer Training: Yes (pt engaged in functional transfers from recliner and at toilet independently, no deficits noted) Overall Level of Assistance: Independent Sit to Stand: Independent Stand to Sit: Independent Toilet Transfer: Independent Gait Overall Level of Assistance: Independent (pt completed functional mobility within hospital room to simulate household distances independently with no balance deficits noted.) AROM: Within functional limits Strength: Within functional limits (grossly 4+/5) Coordination: Within functional limits Tone: Normal Sensation: Intact ADL Feeding: Independent Grooming: Independent UE Bathing: Independent LE Bathing: Independent UE Dressing: Independent LE Dressing: Independent Toileting: Independent Vision Vision: Impaired (L contact) Hearing Hearing: Within functional limits Cognition Overall Cognitive Status: WFL Orientation Orientation Level: Oriented X4 Education Provided Comments: Pt ed on OT role, OT POC, safety awareness. Good return. LUE AROM (degrees) LUE AROM : WFL Left Hand AROM (degrees) Left Hand AROM: WFL RUE AROM (degrees) RUE AROM : WFL Right Hand AROM (degrees) Right Hand AROM: WFL Hand Dominance Hand Dominance: Right AM-PAC Score AM-PAC Inpatient Daily Activity Raw Score: 24 (04/15/221631) AM-PAC Inpatient ADL T-Scale Score : 57.54 (04/15/221631) ADL Inpatient CMS 0-100% Score: 0 (04/15/221631) ADL Inpatient CMS G-Code Modifier : CH (04/15/221631) Therapy Time Individual Concurrent Group Co-treatment Time In 1456 Time Out 1515 Minutes 19 Timed Code Treatment Minutes: 16 Minutes Mabel Guerrero OTR/L * Rekha Carrillo - 04/15/2022 1:20 PM EST Speech Language Pathology Facility/Department: [facility] 2- STEPDOWN Initial Speech/Language/Cognitive Assessment NAME: Ayana Alves : 1940 ADMISSION DATE: 04/14/2022 ADMITTING DIAGNOSIS: has Subdural hematoma on their problem list. Date of Eval: 04/15/2022 Evaluating Therapist: Rekha Carrillo RECENT RESULTS CT OF HEAD/MRI: Acute left subdural hematoma overlying the parietooccipital lobes measuring up to 4 mm in thickness with no significant associated mass effect. Critical results were called by Dr. Jayant Martínez to Dr. Cain on 04/14/2022 at 8:16 p.m.. Primary Complaint: Ayana Alves is a female that presented to the Emergency Department [place] after suffering mechanical fall from standing height while walking her dog. No LOC. Pt found to have small L parietal SDH on CT while at [place]. CT face and c-spine were negative. Pt takes Plavix for history of cardiac valve repair. Pt has history of cardiac pacemaker. Pt'sonly complaint is pain to her R lower face. Denies headache, dizziness, visual disturbance, chest pain, SOB, abdominal pain, nausea, vomiting. Will obtain repeat CT head and completion scans. Pain: Pain Assessment Pain Assessment: 0-10 Pain Level: 2 Pain Location: Hand, Head Vision/ Hearing Vision Vision: Within Functional Limits Hearing Hearing: Within functional limits Assessment: Pt presents with no apparent cognitive deficits at this time. No dysarthria noted, no oral motor deficits at this time but difficult to assess d/t facial swelling and bruising. No further ST is recommended. Verbal education provided. Recommendations: Recommendations Requires AUDIOPROSTHOLOGIST Intervention: No Patient Education: Yes Patient Education Response: Verbalizes understanding Plan: Individuals consulted Consulted and agree with results and recommendations: Patient Goals: Patient/family involved in developing goals and treatment plan: Yes Subjective: Social/Functional History Lives With: Spouse Type of Home: House Active Nurse Advocate: Yes Mode of Transportation: Car Vision Vision: Within Functional Limits Hearing Hearing: Within functional limits Objective: Oral Motor Labial: No impairment Lingual: No impairment Motor Speech Apraxic Characteristics: None Intelligibility: No impairment Overall Impairment Severity: None Expression Primary Mode of Expression: Verbal Cognition: Orientation Overall Orientation Status: Within Normal Limits Memory Memory: Within Functional Limits Abstract Reasoning Abstract Reasoning: Within Functional Limits Safety/Judgment Safety/Judgment: Within Functional Limits Prognosis: Individuals consulted Consulted and agree with results and recommendations: Patient Education: Patient Education: Yes Patient Education Response: Verbalizes understanding Therapy Time: Individual Concurrent Group Co-treatment Time In 11:42 Time Out 11:55 Minutes 13 Completed by: Rekha Carrillo Social Science Research Assistant Clinician Cosigned By: Nargis Fernandez M.S.CCC/AUDIOPROSTHOLOGIST * Mehreen Bradshaw PT - 04/15/2022 11:55 AM EST Physical Therapy Facility/Department: [facility] CAR 2- STEPDOWN Physical Therapy Initial Assessment Name: Ayana Alves : 1940 Date of Service: 04/15/2022 82 y/o trauma transfer from [place], mechanical fall SH, on Plavix, outside hospital CT significant for small L parietal SDH w/o midline shift Discharge Recommendations: No therapy recommended at discharge PT Equipment Recommendations Equipment Needed: No Patient Diagnosis(es): The encounter diagnosis was Subdural hematoma. Past Medical History: has no past medical history on file. Past Surgical History: has no past surgical history on file. Assessment Body Structures, Functions, Activity Limitations Requiring Skilled Therapeutic Intervention: Decreased functional mobility Assessment: Ayana was able to ambulate 200' no device, steadily. She can entry engineer unilateral stance for at least 10 seconds. Will treat for further gait and stair training in order to prevent her losing any of her current level of independence. Therapy Prognosis: Good Decision Making: Low Complexity Clinical Presentation: stable Requires PT Follow-Up: Yes Activity Tolerance Activity Tolerance: Patient tolerated evaluation without incident Plan Physcial Therapy Plan General Plan: 3-5 times per week Current Treatment Recommendations: Patient/Caregiver education & training, Gait training, Stairtraining Safety Devices Type of Devices: Call light within reach, Gait belt, Nurse notified, All fall risk precautions in place, Left in chair Restrictions Position Activity Restriction Other position/activity restrictions: Up with assist. Subdural hematoma. Subjective General Chart Reviewed: Yes Patient assessed for rehabilitation services?: Yes Family / Caregiver Present: No Follows Commands: Within Functional Limits Subjective Subjective: Denies pain. 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 Strength LLE Strength LLE: WFL Bed mobility Supine to Sit: Independent Sit to Supine: Independent Transfers Sit to Stand: Supervision Stand to Sit: Supervision Ambulation Device: No Device Assistance: Stand by assistance Quality of Gait: Steady Gait Deviations: None Distance: 200' Balance Sitting - Static: Good Sitting - Dynamic: Good Standing - Static: Good Standing - Dynamic: Good Single Leg Stance R Le sec Single Leg Stance L Le sec AM-PAC Score AM-PAC Inpatient Mobility Raw Score : 23 (04/15/22 1143) AM-PAC Inpatient T-Scale Score : 56.93 (04/15/22 1143) Mobility Inpatient CMS 0-100% Score: 11.2 (04/15/22 1143) Mobility Inpatient CMS G-Code Modifier : CI (04/15/22 114) Goals Short Term Goals Time Frame for Short Term Goals: 6 Short Term Goal 1: Ambulate 400' no device with independence. Short Term Goal 2: Negotiate up and down 4 steps with one railing with SBA. Education Patient Education Education Given To: Patient Education Provided: Role of Therapy;Precautions;Plan of Care Education Method: Demonstration;Verbal Education Outcome: Verbalized understanding;Demonstrated understanding Therapy Time Individual Concurrent Group Co-treatment Time In 1118 Time Out 1137 Minutes 19 Timed Code Treatment Minutes: 8 Minutes Mehreen Bradshaw PT * Isabelle Snyder MD - 04/15/2022 12:12 AM EST Images from the original note were not included. Trauma Tertiary Survey Admit Date: 04/14/2022 Hospital day 0 Mechanical fall No past medical history on file. Scheduled Meds: sodium chloride flush 5-40 mL IntraVENous 2 times per day polyethylene glycol 17 g Oral Daily acetaminophen 1,000 mg Oral 3 times per day Continuous Infusions: sodium chloride sodium chloride 75 mL/hr at 04/14/222111 PRN Meds:sodium chloride flush, sodium chloride, ondansetron OR ondansetron, senna Subjective: Patient reports mild headache and left hand pain. She reports xrays at [facility] showed no broken bones. Objective: Patient Vitals for the past 8 hrs: BP Temp Temp src Pulse Resp SpO2 Height Weight 04/14/22 2345 -- -- -- 61 -- -- -- -- 04/14/222329 135/70 -- Oral 62 16 96 % 5' 1 (1.549 m) 114 lb 10.2 oz (52 kg) 04/14/222235 132/60 97.6 F (36.4 C) Oral 65 16 98 % -- -- 04/14/222229 132/60 -- -- -- -- 97 % -- -- 04/14/222099 113/60 -- -- -- -- 96 % -- -- 04/14/222029 (!) 139/58 -- -- -- -- 97 % -- -- 04/14/221999 (!) 162/57 -- -- -- -- 97 % -- -- 04/14/221940 (!) 164/64 -- -- 65 16 98 % 5' 1 (1.549 m) 115 lb (52.2 kg) 04/14/22 1930 (!) 166/70 -- -- 67 16 100 % -- -- 04/14/221922 (!) 174/78 -- -- 69 16 100 % -- -- 04/14/221917 (!) 153/87 97.2 F (36.2 C) Oral 64 16 100 % -- -- 04/14/221915 (!) 153/87 97.2 F (36.2 C) -- 65 16 100 % -- -- No intake/output data recorded. No intake/output data recorded. Radiology:no new images ordered PHYSICAL EXAM: GCS: 4 - Opens eyes on own 6 - Follows simple motor commands 5 - Alert and oriented Pupil size: Left 3 mm Right 3 mm Pupil reaction: Yes Wiggles fingers: Left Yes Right Yes Hand grasp: Left normal Right normal Wiggles toes: Left Yes Right Yes Plantar flexion: Left normal Right normal BP 135/70 Pulse 61 Temp 98.5 F (36.9 C) (Oral) Resp 16 Ht 5' 1 (1.549 m) Wt 114 lb 10.2 oz (52 kg) SpO2 96% BMI 21.66 kg/m General appearance: alert, appears stated age, and cooperative Head: bruising to Right chin and laceration to upper lip, otherwise WNL Neck: supple, symmetrical, trachea midline Back: symmetric, no curvature. ROM normal. No CVA tenderness. Lungs: clear to auscultation bilaterally Heart: regular rate and rhythm, S1, S2 normal, no murmur, click, rub or gallop Abdomen: soft, non-tender; bowel sounds normal; no masses, no organomegaly Extremities: left wrist and hand swollen, mildly tender, full ROM WNL, all other extremities WNL Skin: Skin color, texture, turgor normal. No rashes or lesions Neurologic: Grossly normal Spine: Spine Tenderness ROM Cervical 0 /10 Normal Thoracic 0 /10 Normal Lumbar 0 /10 Normal Musculoskeletal Joint Tenderness Swelling ROM Right shoulder absent absent normal Left shoulder absent absent normal Right elbow absent absent normal Left elbow absent absent normal Right wrist absent absent normal Left wrist present present normal Right hand grasp absent absent normal Left hand grasp absent present normal Right hip absent absent normal Left hip absent absent normal Right knee absent absent normal Left knee absent absent normal Right ankle absent absent normal Left ankle absent absent normal Right foot absent absent normal Left foot absent absent normal CONSULTS: Neurosurgery PROCEDURES: none INJURIES: Patient Active Problem List Diagnosis Subdural hematoma Assessment/Plan: SDH Monitor with neurochecks Neurosurgery advising monitoring, no repeat imaging at this time Left Hand: imaging completed, no acute fracture Pain mgmt PRN * Keara Boone - 04/14/2022 7:54 PM EST SPIRIT[place] [facility] [place] PATIENT NAME: Ayana Alves Shift date: 04/14/22 Shift day: Friday Shift # 2 Room # Name: Ayana Alves Age: 82 y.o. Gender: female Pent[employer]al: [employer] Place of religion: [facility] Trauma/Incident type: Adult Trauma Priority Admit Date & Time: 04/14/2022 6:56 PM TRAUMA NAME: [facility] ADVANCE DIRECTIVES IN CHART? No NAME OF DECISION MAKER: Bryan Alves, spouse or Kiya, daughter PATIENT/EVENT DESCRIPTION: Ayana Alves is a 82 y.o. female who arrived via [facility] as an Adult Trauma Priority; patientsustained injuries from a fall. Pt to be admitted to . SPIRITUAL IHZCTINMEQ-EYYCAOFZFFXB-AINIMIL: Medical Esthetician provided a ministry of presence and made space for sharing. Medical Esthetician learned that patient receives support and comfort from her family and her yossi. Patient shared she belongs to [employer] in [place] and has a large bible study group praying forher. Patient shared that her , Bryan, has early Alzheimer's and is home resting. Patient appeared to be calm and seemed to be coping well. Medical Esthetician connected patient's daughter, Kiya, with patient in ED16 (patient was originally in Trauma B), and extended hospitality. Patient and patient's daughter expressed gratitude for exhibit display representative presence. PATIENT BELONGINGS: With patient ANY BELONGINGS OF SIGNIFICANT VALUE NOTED: Not noted or handled by exhibit display representative REGISTRATION STAFF NOTIFIED? Yes WHAT IS YOUR SPIRITUAL CARE PLAN FOR THIS PATIENT?: Medical Esthetician support will continue to be available as needed. 04/14/221952 Encounter Summary Service Provided For: Patient;Family Referral/Consult From: Multi-disciplinary team Support System Children;Spouse;Adventist/yossi community Last Encounter 04/14/22 Complexity of Encounter Low Begin Time 1857 End Time 1957 Total Time Calculated 60 min Crisis Type Trauma Assessment/Intervention/Outcome Assessment Calm;Coping Intervention Active listening;Sustaining Presence/Ministry of presence Outcome Comfort;Expressed Gratitude Plan and Referrals Plan/Referrals Continue Support (comment) . Spiritual Care Department [facility] [phone] documented in this encounterB[facility] Work Phone: 1(443) 837-188211-07-2022 Hospital Discharge instructions* Discharge Instructions* Tiffanie Peck RN - 04/15/2022 8:54 AM EST Discharge Instructions for Trauma What to do after you leave the hospital: You sustained a head injury during your recent traumatic event. Please refrain from any activities that could put you at risk for further injury to your head as you heal over the next 3-4 weeks (suchas ladders, contact sports, 4- flores/ATV activities, etc.) You received a cognitive evaluation while hospitalized-follow all instructions given by the speech-language pathologist. For additional support and resources for you and your family contact the [facility] at [phone]. This center offers additional therapy, support groups, education and other resources at no cost. The center is located at [address] [place] [address]. You can also visit [email or web address] for more information. General questions or concerns may be called to the trauma nurse line at [phone] and please leave a message. Trauma is a life-threatening condition. Your doctor will want to closely monitor you. Be sure to goto all of your appointments. * Discharge Instr - Activity* Rosario Thomas RN - 04/15/2022 3:23 PM EST As tolerated. * Attachments The following attachments cannot be sent through Care Everywhere. * Acute Concussion (Namibian) * Head Injury: Closed: General Info (Namibian) documented in this encounterBON [facility] Work Phone: [phone]) 655-248408-09-2022 NoteThis is a Telehealth Appointment *This visit was conducted via Telehealth with real time interactive synchronized audio and video communication. This was performed due to the current COVID-19 pandemic in order to minimize exposure to both patients and staff. The patient verbally consented to treatment. The patient understands their rights, the HIPAA risks and that they will be charged accordinglyfor the services rendered. The patient was seen via telemedicine while they were at: _ This is a Telehealth Appointment *This visit was conducted via Telehealth with real time interactive synchronized audio and video communication. This was performed due to the current COVID-19 pandemic in order to minimize exposure to both patients and staff. The patient verbally consented to treatment. The patient understands their rights, the HIPAA risks and that they will be charged accordinglyfor the services rendered. The patient was seen via telemedicine while they were at: _ Chief Complaint Patient to discuss repeat colonoscopy. History of Present Illness 81 year old female, patient of Dr. Jessica Maxwell. Patient to discuss repeat colonoscopy. Last colonoscopy performed 2019 out of town, no abnormalities, no recommendations for repeat CY. She had another CY/EGD 06/2016 due to EDILIA. Findings of the previous colonoscopy include a normal screening. Patient was referred to [facility] by PCP on 05/03/2020 due to anemia. Patient reports diarrhea. Previously follow with Dr eFrmin Gamez. Retired and no longer following with GI. Not currently taking anything for diarrhea. She reports no unintentional weight loss. Denies recent travel, illness, abx use. No recent stool studies. CT/CTA abd/pelvis = multiple lesions within liver, 2 smaller hemangiomata, largest atypical cavernous hemangioma, no further follow up since. Large uterine fibroid. No arterial occlusion. Abd aorta mild tortuosity. Outside faciliy. No family history of colon cancer or polyps. Patient denies BRBPR and melena. 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 Review of Systems Constitutional: No fevers, chills, sweats, weight loss or weight gain Respiratory: No shortness of breath, cough Cardiovascular: +AFIB; +HTN; No chest pain, palpitations, syncope, no angina, no atrial fibrillation Gastrointestinal: No nausea, vomiting, diarrhea, no swallowing difficulties Liver: No jaundice, hepatitis Genitourinary: No hematuria, no kidney problems Hematologic: +Anemia Neuro: Denies strokes, TIA, seizures As reviewed in the HPI. All other systems reviewed are negative or normal. Physical Exam Vitals & Measurements Estimated Temperature: no chills Height: Weight: General: No acute distress. Normally conversant Eyes: Normal conjunctiva. Round and symmetric pupils. ENT: External ear and nasal structures normal. Hearing grossly intact. No nasal discharge. Neck: Neck appears supple. No visible masses or thyromegaly. Respiratory: Respirations are non-labored. No wheezing or stridor noted. Skin: No visible rashes or ulcers. Psych: Alert and oriented. Cooperative with appropriate mood and affect, normal judgment. CV: No extremity edema or cyanosis noted MSK: Normal ambulation. Normal upper and lower extremity range of motion. Neuro: No focal deficits noted. CNNs II-XII are grossly intact. Assessment/Plan 1. Bowel habit changes CY in 2016 and again 2019 without abnormalities has followed with GI in the past her most recent GI specialist with [facility] has retired Time Spent with the Patient I have personally spent [35] minutes on this date, directly related to today's patient visit, including pre and post visit work, for this date of service. Time listed does not include time spent on separately billable services. Problem List/Past Medical History Ongoing AFIB Anemia Anxiety Depression Hiatal hernia HTN Hypothyroidism Internal hemorrhoid Multinodular goiter Tardive dyskinesia Historical TIA - Transient ischaemic attack 12/2018 Procedure/Surgical History Lumbar Spine Surgery (2009) Colonoscopy/EGD (06/2016) Pacemaker Placement (2018) Cardiac Mitral Valve Surgery (10/2018) Medications clonazePAM 0.5 mg oral tablet, 0.5 mg= 1 tabs, Oral, BID clopidogrel 75 mg oral tablet, 75 mg= 1 tabs, Oral, Daily levothyroxine 50 mcg (0.05 mg) oral tablet, 50 mcg= 1 tabs, Oral, Daily Metoprolol Tartrate 25 mg oral tablet, 25 mg= 1 tabs, Oral, BID spironolactone 25 mg oral tablet, 25 mg= 1 tabs, Oral, Daily Allergies sulfa drugs (Rash) Social History Alcohol Current, 1-2 times per week Substance Abuse Denies All Tobacco Former smoker, quit more than 5 years ago Use:. Cigarettes Family History Stroke: Mother. Health Maintenance Colonoscopy/EGD 06/2016 Lab Results No qualifying data available. Brian Charlene DOMINGUEZ Electronically Signed by (more content not included)...[facility]: Order Comment: [phone] Miscellaneous Notes* Telephone Encounter - Haven Gr RN - 11/26/2021 2:11 PM EDT -Pt Verified by Name and Date of -pt calling to ask if there is an age limit for colonoscopies. Pt PCP not with [facility]. -advised discuss with PCP and seek referral for ANNE eval. [facility]* Encounter Date Diagnosis Assessment Notes Treatment Notes Treatment Clinical Notes Sep, Thrombophlebitis of superficial veins of left lower extremity (ICD-10 - I80.02) Ayana presents with superficial thrombophlebitis. At this juncture we have discussed the findings and diagnosis as well as personally reviewed appropriate imaging and performed interpretation of related testing and examination with the patient in office today. Prior medical notes from [place] ED and history have been reviewed. At this time I would recommend aspirin 81 mg twice daily along with warm compresses to the area. We will plan for follow-up 2 to 3 weeks if not improved. The patient has been involved in our cooperative treatment plan and agrees to move forward with treatment at this time. Instructed patient to use heat. Sep, Other See orders for this visit as documented in the electronic medical record. [employer] Other Evaluation note* Diagnosis Subdural hematoma- Primary Subdural hemorrhage Subdural hematoma Subdural hemorrhage documented in this encounter [facility] Work Phone: evaluation noteNo InformationNort [employer] Other Evaluation noteNo assessment information available [facility] Work Phone: Hisfkod general Narrative - Reported* Type Description Date Surgical History bones in feet shaved Surgical History pins left wrist Surgical History cage in back 2011 Surgical History open heart surgery 2020 Surgical History pacemaker 2020 [employer] Other History general Narrative - Reported* Type Description Date Surgical History bones in feet shaved Surgical History pins left wrist Surgical History cage in back 2011 Surgical History open heart surgery 2020 Surgical History pacemaker 2020 Hospitalization History fall- [facility] d/t c oncussion 04/13/2022 [employer] Other History general Narrative - Reported* Type Description Date Medical History Primary osteoarthritis of right knee Medical History Primary osteoarthritis of right hip Medical History Chronic fatigue Medical History Essential hypertension Medical History Vitamin D deficiency Surgical History bones in feet shaved Surgical History pins left wrist Surgical History cage in back 2011 Surgical History open heart surgery 2020 Surgical History pacemaker 2020 Hospitalization History fall- [facility] d/t c oncussion 04/13/2022 [employer] Other Summary Purpose Family History No Family History Records FoundNo Family History Records FoundNo Family History Records FoundNo Family History Records FoundNo Family History Records FoundNo Family History Records FoundNo Family History Records FoundNo Family History Records FoundNo Family History Records Found Advance Directives Latest Code Status on File Code Status Date Activated Date Inactivated Comments Full Code 04/14/2022 8:43 PM Healthcare Agents on File Name Relationship Healthcare Agent Relationshi p Communication Kiya Bill Child Primary Decision Maker Advance Directive Response Recorded Date/ Time Advance Directives No February 12:26pm Additional Source Comments INFORMATION SOURCE (unrecogn ized section and content) DATE CREATED [facility] CREATED AUTHOR AUTHOR'S ORGANIZ ATION 11/28/2021 [facility] DATE CREATED AUTHOR AUTHOR'S ORGANIZ ATION 01/15/2022 [facility] DATE CREATED AUTHOR AUTHOR'S ORGANIZ ATION 04/14/2022 [facility] DATE CREATED AUTHOR AUTHOR'S ORGANIZ ATION 04/16/2022 [facility] DATE CREATED AUTHOR AUTHOR'S ORGANIZ ATION 04/20/2022 [facility] DATE CREATED AUTHOR AUTHOR'S ORGANIZ ATION 04/26/2022 [facility] DATE CREATED AUTHOR AUTHOR'S ORGANIZ ATION 08/26/2022 [facility] DATE CREATED AUTHOR AUTHOR'S ORGANIZ ATION 09/26/2022 [facility] Comments (unrecognize d section and content) In the event this informatio n is protected by the Federal Confidentiality of Alcohol and Drug Abuse Patient Records regulations: The Federal rules restrict any use of the information to criminally investigate or prosecute any alcohol or drug abuse patient.[facility] Reason for Visit (unrecogniz ed section and content) chronic pain Reason Comments colonoscopy questions Reason Comments Fall No LOC, tripped walk ing dog, on Plavix, SDH no midline shift per report. Neuro intact Care Teams (unrecognized sec tion and content) Pst Specialist Relationship Specialty Start Date End Date Jessica Maxwell MD [address] [place] [address] PCP - General Family Practice 03/30/14 Jayant Ambrocio [address] [place] [id number] Cardiology 11/18/19 Pst Specialist Relationship Specialty Start Date End Date Jessica Maxwell MD [address] [place] [address] PCP - General Family Medicine 04/14/22 Team Status: Inactive Member Role Status Dates Jeb Salas DO Attending Provider Active Ordered Prescriptions (unrec ognized section and content) Prescription Sig Dispensed Refills Start Date End Da te clopidogrel (PLAVIX) 75 MG tablet Take 1 tablet by mouth daily Hold plavix x 2 weeks . Follow up with primary providers 30 tablet 3 04/29/2022 Scheduled Active and Recently Administ ered Medications (unrecognized section and content) Medication Order 04/13/2022 04/14/2022 04/15/2022 acetaminophen (TYLENOL) tablet 1,000 mg 1,000 mg, Oral, EVERY 8 HOURS SCHEDULED (3 times per day), First dose on 04/14/22 at 2200, Until Discontinued, Maximum dose of acetaminophen is 4000 mg from all sources in 24 hours. 2111 (Given - Provider: August Mcarthur RN) 0610 (Given - Provider: Aide Fong, DILAN)1541 (Given - Provider: Elaine Degroot RN)2200 (Due) levothyroxine (SYNTHROID) tablet 50 mcg 50 mcg, Oral, DAILY, First dose on 04/15/22 at 0700, Until Discontinued, Tube feeding (TF) interaction, obtain physician order to manage, recommend holding TF for 30 minutes before and after dose. 0610 (Given - Provid er: Aide Fong, DILAN) liothyronine (CYTOMEL) tablet 5 mcg 5 mcg, Oral, DAILY, First dose on Fri04/15/22 at 0900, Until Discontinued 110 (Given - Provid er: Elaine Degroot RN) metoprolol tartrate (LOPRESSOR) tablet 25 mg 25 mg, Oral, 2 TIMES DAILY, First dose on Fri04/16/22 at 0900, Until Discontinued polyethylene glycol (GLYCOLAX) packet 17 g 17 g, Oral, DAILY, First dose on Fri04/14/22 at 2045, Until Discontinued, Stir and dissolve one packet of powder (17 g) in any 4 to 8 ounces of beverage (cold, hot or room temperature) then drink 003 (Not Given - Provider: Aide Fong RN - Reason: Patient/family refused - Comment: Bowel movement yesterday)48 (Not Given - Provider: Elaine Degroot RN - Reason: Patient/family refused) sodium chloride flush 0.9 % injection 5-40 mL 5-40 mL, IntraVENous, EVERY 12 HOURS SCHEDULED (2 times per day), First dose on Fri04/14/22 at 2100, Until Discontinued, For Line Patency: Peripheral IV = 5 mL; Midline or Central Line = 10 mL/lumen. If following IV push medication, administer flush at same rate as the IV push. Flush volume is determined by type of infusion therapy being given. For non-viscous solutions use: Peripheral IV = 5 mL Midline or Central Line = 10 mL/lumen For viscous solutions (i.e. blood components, parenteral nutrition, contrast media, or after obtaining blood sample) use: Peripheral IV = 10 mL Midline or Central Line = 20 mL/lumen 2111 (Given - Provider: August Mcarthur RN) 110 (Given - Provider: Elaine Degroot RN)2100 (Due) spironolactone (ALDACTONE) tablet 25 mg 25 mg, Oral, DAILY, First dose on Fri04/15/22 at 0900, Until Discontinued 1541 (Given - Provid er: Elaine Degroot RN - Comment: as requested by patient) Continuous Medication Order 04/13/2022 04/14/2022 04/15/2022 0.9 % sodium chloride infusion (CANCELED) IntraVENous, at 75 mL/hr, CONTINUOUS, Starting on 04/14/22 at 2044 2111 (New Bag - Provider: August Mcarthur RN) PRN Medication Order 04/13/2022 04/14/2022 04/15/2022 0.9 % sodium chloride infusion IntraVENous, at 5-250 mL/hr, PRN, if patient receiving piggyback infusions and maintenance fluids are not ordered OR KVO fluids to protect IV site / prevent frequent line interruptions/ long duration, Starting on 04/14/22 at 2033, For piggyback infusion, administer at same rate as piggyback for a total of 25 mL. Enter 25 mL into dose field and piggyback rate into rate field of order. If piggyback is infusing at a rate less than 100 mL/hr, enter 25 mL into dose field and 100 mL/hr into rate field of order. For KVO fluids, enter rate of 20 mL/hr or less into rate field of order. clonazePAM (KLONOPIN) tablet 0.25 mg 0.25 mg, Oral, 3 TIMES DAILY PRN, Starting on 04/15/22 at 0013, Until Discontinued, Anxiety, facial tic 0052 (Given - Provid er: Aide Fong RN) iopamidol (ISOVUE-370) 76 % injection 130 mL (COMPLETED) 130 mL, IntraVENous, IMG ONCE PRN, 1 dose, Starting on 04/14/22 at 1936, Until 04/14/22 at 193, Other 1936 (Given - Provider: Asia Gonzalez - Comment: [id number] 09/2024) ondansetron (ZOFRAN) injection 4 mg(Linked Group 1) 4 mg, IntraVENous, EVERY 6 HOURS PRN, Starting on 04/14/22 at 2033, Until Discontinued, Nausea, Vomiting, Administer if oral route cannot be used. ondansetron (ZOFRAN-ODT) disintegrating tablet 4 mg(Linked Group 1) 4 mg, Oral, EVERY 8 HOURS PRN, Starting on 04/14/22 at 2033, Until Discontinued, Nausea, Vomiting senna (SENOKOT) tablet 8.6 mg 8.6 mg (1 tablet), Oral, DAILY PRN, Starting on 04/14/22 at 2041, Until Discontinued, Constipation, First line therapy for constipation sodium chloride flush 0.9 % injection 5-40 mL 5-40 mL, IntraVENous, PRN, Starting on 04/14/22 at 2033, Until Discontinued, Line Care, After every IV line use, For Line Patency: Peripheral IV = 5 mL; Midline or Central Line = 10 mL/lumen. If following IV push medication, administer flush at same rate as the IV push. Flush volume is determined by type of infusion therapy being given. For non-viscous solutions use: Peripheral IV = 5 mL Midline or Central Line = 10 mL/lumen For viscous solutions (i.e. blood components, parenteral nutrition, contrast media, or after obtaining blood sample) use: Peripheral IV = 10 mL Midline or Central Line = 20 mL/lumen Linked Groups Order Group 1: ondansetron (ZOFRAN-ODT) disintegrating tablet 4 mgJump to med 4 mg, Oral, EVERY 8 HOURS PRN, Starting on 04/14/22 at 2033, Until Discontinued, Nausea, Vomiting Or ondansetron (ZOFRAN) injection 4 mgJump to med 4 mg, IntraVENous, EVERY 6 HOURS PRN, Starting on 04/14/22 at 2033, Until Discontinued, Nausea, Vomiting
Administer if oral route cannot be used.
Goals (unrecognized section and content) Goals may be documented in a n alternate section FOR RECORDS PERTAINING TO PATIENTS WHO ARE OR HAVE BEEN ENROLLED IN A CHEMICAL DEPENDENCY/SUBSTANCEABUSE PROGRAM, SOME INFORMATION MAY BE OMITTED. This clinical summary was aggregated from multiple sources. Caution should be exercised in using it in the provision of clinical care. This summary normalizes information from multiple sources, and as a consequence, information in this document may materially change the coding, format and clinical context of patient data. In addition, data may be omitted in some cases. CLINICAL DECISIONS SHOULD BE BASED ON THE PRIMARY CLINICAL RECORDS. [employer] provides no warranty or guarantee of the accuracy or completeness of information in this document.
--- NOTE | 2023-07-02 14:44 | MM_ITS ---
Patient Name: RAMEZ VELA MR#: [id number] : 1940 Exam Date: 07/02/2023 Ordering Doctor: DR Yasmin Ríos M.D. RADIOLOGY REPORT PROCEDURE: MM TOMOSYNTHESIS SCREENING BI COMPARISON: None. INDICATIONS: screening Calculator Name NCI Breast Cancer Risk Assessment Tool 5 Year Breast Cancer Risk 2.60% Lifetime Breast Cancer Risk 3.40% Personal Breast Cancer No Personal Ovarian Cancer No Treatments None Family Cancers Father with colon cancer at age 80. LOCATION: [facility] BREAST COMPOSITION: Extremely dense, which lowers the sensitivity of mammography. FINDINGS: DIAGNOSTIC CATEGORY 0--INCOMPLETE: NEED ADDITIONAL IMAGING EVALUATION. The breasts are medium in size with extremely dense nodular bilateral parenchymal pattern. Multiple foci of singular and clustered microcalcifications and coarse calcifications some of which are indeterminate. Pacemaker partially obscures the left axillary tail. Linear marker upper inner quadrant of the right breast indicates a scar Comparison to old studies is recommended. If old studies not available, bilateral whole breast ultrasound is recommended to evaluate the nodular pattern and six-month follow-up to evaluate the indeterminate calcifications RECOMMENDATIONS: ULTRASOUND: BILATERAL BREASTS PLEASE NOTE: A NORMAL MAMMOGRAM DOES NOT EXCLUDE THE POSSIBILITY OF BREAST CANCER. A CLINICALLY SUSPICIOUS PALPABLE LUMP SHOULD BE BIOPSIED. Dictated by: Alonzo Reyes MD on 07/02/2023 at 15:31 Approved by: Alonzo Reyes MD on 07/02/2023 at 15:35
--- NOTE | 2023-07-02 14:47 | XR_ITS ---
The [address] [address] Patient Name: RAMEZ VELA MRN: [id number] date: 1940 Sex: F Assigned Patient Location: MAMM Current Patient Location: [facility] Accession/Order Number: [id number] Exam Date: 07/02/2023 15:05 Report Date: 07/02/2023 15:24 At the request of: JESSICA MAXWELL Procedure: XR chest 2V EXAM: XR chest 2V HISTORY: other chest pain R07.89 COMPARISON: 08/18/2018 TECHNIQUE: Upright PA and lateral chest x-ray FINDINGS: The heart is not enlarged and the vasculature is not distended. There has been interval surgery with placement of a left-sided transvenous pacemaker and a cardiac prosthetic valve. Slight prominence of interstitial markings throughout the lungs appear chronic in nature. No acute infiltrate, effusion or pneumothorax is identified. Diffuse osteopenia is noted in the osseous structures are grossly intact. XR/XR chest 2V IMPRESSION: No acute infiltrate or evidence of cardiac decompensation. Mild chronic changes are present. Interval surgery, as described above. Electronically authenticated by: SHARONDA STRAUSS Date: 07/02/2023 15:24
== END 2023-07-02 14:34 | disposition home or self-care (01) ==
LOC: MAMMO 14:34
PROVIDERS: PCP Family Medicine; Visit Provider Family Medicine
DX: Z12.31 Encounter for screening mammogram for malignant neoplasm of breast (principal); R07.89 Other chest pain; Z80.0 Family history of malignant neoplasm of digestive organs
CPT/HCPCS: 71046; 77063; 77067

== ENCOUNTER 2023-07-02 14:35 | Outpatient (OUT) | payer MEDICARE, OTHER, SELFPAY ==
[2023-07-02 16:05] LABS: Anion Gap 11.6; Carbon Dioxide 28.3 mmol/L (21.0-32.0); Chloride 107 mmol/L (98-107); Estimated GFR (African America >60 (>=60); Estimated GFR (Non-African Ame 55 (>=60); Potassium 3.9 mmol/L (3.5-5.1); Sodium 143 mmol/L (136-145)
== END 2023-07-02 14:36 | disposition home or self-care (01) ==
LOC: LAB 14:37
PROVIDERS: PCP Family Medicine
DX: E55.9 Vitamin D deficiency, unspecified (principal); I10 Essential (primary) hypertension; Z95.3 Presence of xenogenic heart valve
CPT/HCPCS: 36415; 80051; 82306; 82565; 84520

== ENCOUNTER 2023-07-14 12:44 | Outpatient (OUT) | payer MEDICARE, OTHER, SELFPAY ==
--- NOTE | 2023-07-14 12:47 | US_ITS ---
Patient Name: RAMEZ VELA MR#: [id number] : 1940 Exam Date: 07/14/2023 Ordering Doctor: DR Yasmin Ríos M.D. RADIOLOGY REPORT PROCEDURE: US BREAST BI COMPLETE COMPARISON: MM TOMOSYNTHESIS SCREENING BI, 07/02/2023. INDICATIONS: abnormal mammogram R92.8 TECHNIQUE: Breast ultrasound was performed, with evaluation focusing only on specific areas of concern. FINDINGS: DIAGNOSTIC CATEGORY 3--PROBABLY BENIGN FINDING. THE FOLLOWING FINDING(S) HAS A HIGH PROBABILITY OF A BENIGN ETIOLOGY: Ultrasound demonstrates multiple coarse calcifications with acoustic shadowing, nonspecific. No focal solid mass or cystic lesion is identified. Given the irregular appearance on mammogram with no prior comparisons, six-month follow-up bilateral diagnostic mammogram is recommended RECOMMENDATIONS: SHORT TERM FOLLOW-UP DIAGNOSTIC MAMMOGRAM BILATERAL BREASTS IN 6 MONTHS. PLEASE NOTE: A NORMAL ULTRASOUND EXAMINATION DOES NOT EXCLUDE THE POSSIBILITY OF BREAST CANCER. A CLINICALLY SUSPICIOUS PALPABLE LUMP SHOULD BE BIOPSIED. Dictated by: Alonzo Reyes MD on 07/14/2023 at 13:49 Approved by: Alonzo Reyes MD on 07/14/2023 at 13:51
--- OUTSIDE RECORDS SUMMARY | 2023-07-14 12:49 | XMS_ITS | CCD ---
Author Name Unknown Address [address] [facility] [address] [place] [address] Organization [facility] Care Team Providers Care Ccu Nurse Name Role Phone Jessica Maxwell MD Primary Care Provider [phone] Jayant Ambrocio Unavailable Jeb Salas Unavailable PROVIDER, UNKNOWN Admitting Unavailable PROVIDER, UNKNOWN Attending Unavailable Jessica Maxwell MD Primary Care Provider MITALI NARAYAN Consulting Unavailable JESSICA MAXWELL Primary Care Unavailable MITALI NARAYAN Admitting Unavailable MITALI NARAYAN Attending Unavailable MITALI NARAYAN MD Consulting Unavailable EDIN ELDER Attending Unavailable VIVIAN DAMON Referring Unavailable JESSICA MAXWELL Primary Care Unavailable Jessica Maxwell Unavailable DO Jeb Salas Attending Provider Jeb Salas Admitting Unavailable Jeb Salas Attending Unavailable ALISSA, DR JESSICA Hale Admitting Unavailable ALISSA, DR JESSICA Hale Attending Unavailable ALISSA, DR JESSICA Hale Primary Care Unavailable DR JESSICA MAXWELL Admitting Unavailable ALISSA, DR JESSICA Hale Primary Care Unavailable ALISSA, DR JESSICA Hale Attending Unavailable JEB SALAS Admitting Unavailable JEB SALAS Attending Unavailable ALISSA, DR JESSICA Hale Primary Care Unavailable SHRUTIH ANTON Admitting Unavailable SURESH Mireles, MR MCCORMICK Consulting Unavailable ALISSA, DR JESSICA Hale Primary Care Unavailable SHRUTHI ANTON Attending Unavailable SHRUTHI ANTON Consulting Unavailable MANUEL KOCH Consulting Unavailable SHAHZAD TOMAS Consulting Unavailable FELIPA HOPPER Consulting Unavailable ALISSA, DR JESSICA Hale Attending Unavailable YOBANY, DR MANUEL Lagos Consulting Unavailable ALISSA, DR JESSICA Hale Primary Care Unavailable DR JESSICA MAXWELL Admitting Unavailable DR JESSICA MAXWELL Consulting Unavailable DR JESSICA MAXWELL Admitting Unavailable ALISSA, DR JESSICA Hale Attending Unavailable ALISSA, DR JESSICA Hale Consulting Unavailable ALISSA, DR JESSICA Hale Primary Care Unavailable DR JAYANT AMBROCIO Admitting Unavailable ALISSA, DR JESSICA Hale Primary Care Unavailable DR JAYANT AMBROCIO Attending Unavailable David Arellano DO Primary Care Provider [phone] WERNER NOLASCO Attending Unavailable Allergies Allergy Classification Reported Allergen(s) Allergy Type Date of Onset Reaction(s) Facility (20 sources) Sulfonamides (Antibiotic) Drug Intolerance 04-18-20 14 Rash, Unknown [facility] (1 source) sulfaSALAzine Drug Allergy Unknown [employer] Other (1 source) Sulfonamides (Antibiotic) Propensity to adverse reactions to drug 04-14-20 22 [facility] (2 sources) Sulfonamides (Antibiotic) Drug allergy (disorder) 12-15-19 13 [facility] (11 sources) celecoxib Drug Allergy 05-24-20 13 Unknown [employer] Other (1 source) patient allergy list reviewed by nurse or physicia Propensity to adverse reactions 02-03-20 19 Comment:Done [employer] Other (1 source) Allergies Reconciled Propensity to adverse reactions Unknown [employer] Other (2 sources) celecoxib Drug Allergy 08-24-19 22 [facility] Healthcare Medications Current Medications Medication Drug Class(es) Dates [...] Start: 02-18-2023 take 1 tablet by corby th twice daily as needed clonazePAM 0.5 MG TAKE 1 TABLET BY MOUTH TWICE A DAY NEEDED for Feb, Active Start: 10-16-2022 take 1 tablet by corby th twice daily as needed clonazePAM 0.5 MG TAKE 1 TABLET BY MOUTH TWICE A DAY NEEDED for 30 October, Active Start: 09-05-2022 take 1 tablet by corby th twice daily as needed clonazePAM 0.5 MG TAKE 1 TABLET BY MOUTH TWICE A DAY NEEDED for 30 Aug, Active Start: 04-15-2022 take 0.25 mg by mout h three times daily as needed 0.25 mg, Oral, 3 TIMES DAILY PRN, Starting on Fri04/15/22 at 0013, Until Discontinued, Anxiety, facial tic Start: 01-24-2020 clonazePAM 0.5 MG TAKE 1 TABLET BY MOUTH TWICE A DAY NEEDED FOR 30 DAYS for 30 Jul, Active take 0.25 mg by mout h [...] as needed. clopidogrel 75 mg oral tablet (10 sources) P2Y12 Platelet Inhibitor Start: 04-29-2022 take 1 tablet by mouth once daily clopidogrel (PLAVIX) 75 MG tablet Take 1 tablet by mouth daily Hold plavix x 2 weeks . Follow up with primary providers 30 tablet 3 04/29/2022 Active End: 04-15-2022 take 1 tablet by mouth in the morning clopidogrel (Plavix) 75 MG tablet Take 75 mg by mouth in the morning. 0 Active hydrocortisone 25 mg/ml topi raisa cream (8 sources) Corticosteroid Hydrocortisone ( Perianal) 2.5 % APPLY TO AFFECTED AREA 1-2 TIMES DAILY NEEDED for 15 Active Hydrocortisone ( Perianal) 2.5 % APPLY TO AFFECTED AREA 1-2 TIMES DAILY NEEDED for 15 Active ipratropium bromide 0.021 mg/actuat metered dose nasal spray (20 sources) Anticholinergic ipratropium (Atr ovent) 0.03 % nasal spray Administer 2 sprays into each nostril every 12 (twelve) hours. 0 Active take 2 spray(s) nasal route once daily Ipratropium [place] 0.06 % 2 sprays in each nostril Nasally Once a Day for 30 days Active take 2 spray(s) nasal route once daily Ipratropium [place] 0.06 % 2 sprays in each nostril Nasally Once a Day for 30 days Active take 2 spray(s) nasa l route three times daily Ipratropium [place] 0.06 % 2 sprays in e ach [...] Active take 1 tablet by corby th in the morning metoprolol tartrate (Lopressor) 25 MG tablet Take 25 mg by mouth in the morning and 25 mg before bedtime. 0 Active Comment on above: Take 12.5 mg by mout h twice daily. ondansetron (ZOFRAN-ODT) disintegrating tablet 4 mg (1 source) Start: 04-14-20 ondansetron (ZOFRAN-ODT) disintegrating tablet 4 mg polyethylene glycol 3350 [id number] mg powder for oral solution (1 source) Osmotic Laxative Start: 04-14-20 polyethylene glycol (GLYCOLAX) packet 17 g saccharomyces boulardii 250 mg oral capsule (2 sources) take 1 capsule by mouth in the morning saccharomyces boulardii (Florastor) 250 MG capsule Take 250 mg by mouth in the morning and 250 mg before bedtime. 0 Active sennosides, half-way 8.6 mg oral tablet (1 source) Start: 04-14-20 senna (SENOKOT) tablet 8.6 mg terbinafine (6 sources) Allylamine Antifungal Terbinafine Active Completed/Discontinued Medications Medication Drug Class(es) Dates [...] take 2 tablets by mouth twice daily zpdyroc-rpmhkxelh-dq tamin D3 500 mg(1,250mg) -200 unit per tablet Take 2 tablets by mouth twice daily. 0 Active Comment on above: Take 2 tablets by mo [facility] twice daily. donepezil hydrochloride 10 mg oral [...] 130 mL (1 source) Start: 04-14-20 End: 11-06-20 22 iopamidol (ISOVUE-370) 76 % injection 130 mL [...] Until Discontinued take 1 tablet by corby th every twenty-four hours Liothyronine Sodium 5 MCG [...] Other fatigue; 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: [Fatigue] Onset: 2 Episodic Mycoses (1 source) Onychomycosis due to dermatophyte ; 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: [Tinea unguium] 07-10-2023 Episodic Nonspecific chest pain (2 sources) Chest [...] (1 source) Myalgia, other site Episodic Other connective tissue disease (1 source) Pain in toe; 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: [Pain in unspecified toe(s)] 07-10-2023 Episodic Other ear and sense organ disorders [...] for malignant neoplasm of breast Episodic Other skin disorders (1 source) Dystrophia unguium; 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: [Nail dystrophy] 07-10-2023 Episodic Other upper respiratory disease (1 source) [...] aftercare (1 source) Anticoagulant effect; 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: [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] Onset: 0 11-18-2019 Episodic Other aftercare (1 source) 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] Pako Sidhu M.D.08/21/2022 3:22 PM Dictation Location: [place] [address] Transcribed By: [facility] 08/21/22 1522 Dictated By: Pako Sidhu DO 08/21/22 1519 Signed By: 08/21/22 1522 Normal [facility] XR femur LT 2V* [facility] [employer] Other XR femur LT 2V* [facility] Main [facility] [employer] Other XR femur LT 2V* [address] [place] [address] No [facility] [employer] Other XR femur LT 2V* [place] [address] [facility] [employer] Other XR femur LT 2V* XRay Report [employer] Other XR femur LT 2V* Signed [employer] Other XR femur LT 2V* Patient: Ayana Alves MR#: [id number] [place] [employer] Other XR femur LT 2V* 484 [employer] Other XR femur LT 2V* : 1940 Acct:[id number] [employer] Other XR femur LT 2V* Age/Sex: 82 / F ADM Date: 08/21/22 [employer] Other XR femur LT 2V* Loc: [facility] Room: [facility] [employer] Other XR femur LT 2V* Attending Dr: Jeb Salas DO [employer] Other XR femur LT 2V* Copies to: Jeb Salas DO [employer] Other XR femur LT 2V* Ordering Provider: Jeb Salas DO [employer] Other XR femur LT 2V* Date of Service: 08/21/22 [employer] Other XR femur LT 2V* XR/XR femur LT 2V*: PAIN [employer] Other XR femur LT 2V* 2 views LEFTfemur plain film [employer] Other XR femur LT 2V* COMPARISON: None [employer] Other XR femur LT 2V* HISTORY: LEFT anterior mid back pain for one month [employer] Other XR femur LT 2V* ACUTE FINDINGS:None [employer] Other XR femur LT 2V* DEGENERATIVE CHANGE:Spurring of the hip joints. Adequate joint space. Spurring of the greater [employer] Other XR femur LT 2V* trochanter. Chondrocalcinosis of menisci. [employer] Other XR femur LT 2V* SOFT TISSUE FINDINGS:Unremarkabl e [employer] Other XR femur LT 2V* JOINT EFFUSION:None [employer] Other XR femur LT 2V* POSTOP CHANGES:None [employer] Other XR femur LT 2V* BONE MINERALIZATION:Adequ ate [employer] Other XR femur LT 2V* Calcified fibroid. [employer] Other XR femur LT 2V* XR/XR femur LT 2V* [employer] Other XR femur LT 2V* IMPRESSION: Mild LEFT hip degeneration. greater trochanter spurring. Chondrocalcinosis of menisci. [employer] Other XR femur LT 2V* Impression dictated by: Pkao Sidhu M.D.08/21/2022 3:22 PM [employer] Other XR femur LT 2V* Dictation Location: [place] [address] [employer] Other XR femur LT 2V* Transcribed By: FILIBERTO 08/21/22 1529 [place] [employer] Other XR femur LT 2V* Dictated By: Pako Sidhu DO 08/21/[address] [facility] [employer] Other XR femur LT 2V* Signed By: [facility] [employer] Other XR femur LT 2V* 08/21/22 1528 [place] [employer] Other XR hip LT min 2V(w/wo pelvis )*on 08-21-2022 XR hip LT min 2V(w/wo pelvis)* [facility] Main [place] [address] [place] [address] XRay Report Signed Patient: Ayana Alves MR#: [id number] 484 : 1940 Acct:[id number] Age/Sex: 82 / F ADM Date: 08/21/22 Loc: [facility] Room: Type: [facility] Attending Dr: Jeb Salas DO Copies [...] Pako Sidhu M.D.08/21/2022 3:24 PM Dictation Location: [place] [address] Transcribed By: [facility] 08/21/22 1524 Dictated By: Pako Sidhu DO 08/21/22 152 Signed By: 08/21/22 152 [facility] XR hip LT min 2V(w/wo pelvis)* XR/XR hip LT min 2V(w/wo pelvis)*: Acute pain of left hip [employer] Other XR hip LT min 2V(w/wo pelvis)* 2 views LEFT hip single view pelvis plain film [employer] Other XR hip LT min 2V(w/wo pelvis)* HISTORY:LEFT anterior thigh pain for months. [employer] Other XR hip LT min 2V(w/wo pelvis)* DEGENERATIVE CHANGE:Adequate hip joint space. Spurring of the greater trochanter. [employer] Other XR hip LT min 2V(w/wo pelvis)* BONY MINERALIZATION:Adequ ate [employer] Other XR hip LT min 2V(w/wo pelvis)* Degenerative calcified fibroid. Lower lumbar fixation hardware. [employer] Other XR hip LT min 2V(w/wo pelvis)* XR/XR hip LT min 2V(w/wo pelvis)* [employer] Other XR hip LT min 2V(w/wo pelvis)* IMPRESSION:Unremarka ble LEFT hip. The greater trochanter spurring. [employer] Other XR hip LT min 2V(w/wo pelvis)* Impression dictated by: Pako Sidhu M.D.08/21/2022 3:24 PM [employer] Other XR hip LT min 2V(w/wo pelvis)* Transcribed By: FILIBERTO 08/21/22 [facility] [employer] Other XR hip LT min 2V(w/wo pelvis)* Dictated By: Pako Sidhu DO 08/21/22 [facility] [employer] Other XR hip LT min 2V(w/wo pelvis)* 08/21/22 [facility] [employer] Other CT HEAD WO CONTRASTon 2021 CT [...] symptoms: pt stated was life flighted [facility] from [place] [facility]: CT done at [place] FINDINGS: BRAIN/VENTRICLES: There is a small amount [...] Don Rahman MD 04/24/22 Final result Normal [facility] Basic Metab w/rfx MGon 04-15 Anion gap [Moles/Vol] 9 mmol/L Normal 9-17 [facility] Comment on above: Performed By: #### B MPX, CDP #### [employer] [address] [place], [place] [id number] [employer] Attendant: Yordan Lr MD Performed By: #### C DP, BMPX ####[employer] [place] [address] Lab Director: Yordan Lr MD Calcium [Mass/Vol] 9.6 mg/dL Normal 8.6-10.4 [facility] Comment on above: Performed By: #### B MPX, CDP #### [place] [address] [place] [address] Scalehouse Attendant: Yordan Lr MD Performed By: #### C DP, BMPX ####[facility] [address] [place], [place] [phone] Director: Yordan Lr MD Chloride [Moles/Vol] 107 mmol/L Normal 98-107 [facility] Comment on above: Performed By: #### B MPX, CDP #### [address] [address] [employer] Attendant: Yordan Lr MD Performed By: #### C DP, BMPX ####[address] [address] Lab Director: Yordan Lr MD CO2 [Moles/Vol] 22 mmol/L Normal 20-31 [facility] Comment on above: Performed By: #### B MPX, CDP #### [address] [address] [employer] Attendant: Yordan Lr MD Performed By: #### C DP, BMPX ####[address] [address] Lab Director: Yordan Lr MD Creatinine [Mass/Vol] 0.74 mg/dL Normal 0.50-0.90 [facility] Comment on above: Performed By: #### B MPX, CDP #### [place] [address] [place] [address] [employer] Attendant: Yordan Lr MD Performed By: #### C DP, BMPX ####[address] [phone] Director: Yordan Lr MD GFR/1.73 sq M.predicted among non-blacks MDRD (S/P/Bld) [Vol rate/Area] mL/min/{1.73_m2} Normal >60 [facility] Comment on above: Result Comment: Effective Mar [...] Performed By: #### B MPX, CDP #### [employer] [address] [place] [address] [employer] Attendant: Yordan Lr MD Performed By: #### C DP, BMPX ####[employer] [address] [place] [address] [phone] Director: Yordan Lr MD Glucose [Mass/Vol] 89 mg/dL Normal 70-99 [facility] Comment on above: Performed By: #### B MPX, CDP #### [employer] [address] [place] [address] [employer] Attendant: Yordan Lr MD Performed By: #### C DP, BMPX ####[employer] [address] [place] [address] [phone] Director: Yordan Lr MD Potassium [Moles/Vol] 4.1 mmol/L Normal 3.7-5.3 [facility] Comment on above: Performed By: #### B MPX, CDP #### [employer] [address] [place] [address] [employer] Attendant: Yordan Lr MD Performed By: #### C DP, BMPX ####[employer] [place] [address] [phone] Director: Yordan Lr MD Sodium [Moles/Vol] 138 mmol/L Normal 135-144 [facility] Comment on above: Performed By: #### B MPX, CDP #### [facility] [address] [place] [address] Scalehouse Attendant: Yordan Lr MD Performed By: #### C DP, BMPX ####[facility] [address] [place] [address] Lab Director: Yordan Lr MD Urea nitrogen [Mass/Vol] 16 mg/dL Normal 8-23 [facility] Comment on above: Performed By: #### B MPX, CDP #### [facility] [address] [place] [address] Scalehouse Attendant: Yordan Lr MD Performed By: #### C DP, BMPX ####[employer] [address] [place] [address] Lab Director: Yordan Lr MD Basic Metabolic Panel w/ Ref dequan to MGon 04-15-2022 Anion gap [Moles/Vol] 9 mmol/L 9 - 17 mmol/L [facility] [employer] Calcium [Mass/Vol] 9.6 mg/dL 8.6 - 10. 4 mg/dL [facility] [employer] Chloride [Moles/Vol] 107 mmol/L 98 - 10 7 mmol/L [facility] [employer] CO2 [Moles/Vol] 22 mmol/L 20 - 31 mmol/L [facility] Creatinine [Mass/Vol] 0.74 mg/dL 0.50 - 0.90 mg/dL [facility] GFR/1.73 sq M.predicted MDRD (S/P/Bld) [Vol rate/Area] - PINF [facility] Comment on above: Effective Mar 11, [...] [Mass/Vol] 89 mg/dL 70 - 99 mg/dL [facility] Potassium [Moles/Vol] 4.1 mmol/L 3.7 - 5.3 mmol/L [facility] Sodium [Moles/Vol] 138 mmol/L 135 - 144 mmol/L [facility] Urea nitrogen (BldV) [Mass/Vol] 16 mg/dL 8 - 23 mg/dL [facility] CBC with Auto Differentialon 04-15-2022 Absolute Eos # 0.14 [facility] Absolute Immature Granulocyte [facility] Absolute Lymph # 1.04 Low [facility] Absolute [place] # 0.58 [facility] RS [facility] Basophils Absolute [facility] Basophils/100 WBC (Bld) 0 % 0 - 2 % [facility] Eosinophils/100 WBC (Bld) 2 % 1 - 4 % [facility] Hematocrit (Bld) [Volume fraction] 37.9 % 36.3 - 47.1 % [facility] Hemoglobin (Bld) [Mass/Vol] 12.7 g/dL 11.9 - 15.1 g/dL [facility] Immature granulocytes/100 WBC (Bld) 0 % 0 [facility] Interpretation and review of laboratory results Abnormal [facility] Lymphocytes/100 WBC (Bld) 18 % Low 24 - 43 % [facility] MCH (RBC) [Entitic mass] 29.7 pg 25.2 - 33.5 pg [facility] MCHC (RBC) [Mass/Vol] 33.5 g/dL 28.4 - 34.8 g/dL [facility] MCV (RBC) [Entitic vol] 88.6 fL 82.6 - 102.9 fL [facility] Monocytes/100 WBC (Bld) 10 % 3 - 12 % [facility] NRBC Automated 0.0 0.0 per 100 WBC [facility] Platelet distribution width (Bld) [Ratio] 12.6 % 11.8 - 14.4 % [facility] Platelet mean volume (Bld) [Entitic vol] 10.0 fL 8.1 - 13.5 fL [facility] Platelets (Bld) [#/Vol] 161 10*3/uL [facility] RBC (Bld) [#/Vol] 4.28 10*6/uL 3.95 - 5.1 1 m/uL [facility] Segmented neutrophils/100 WBC (Bld) 70 % High 36 - 65 % [facility] Segs Absolute 4.10 [facility] WBC (Bld) [#/Vol] 5.9 10*3/uL [facility] CBC with Diffon 04-15-2022 Abs. Basophil <0.03 Normal 0.00-0.20 [facility] Comment on above: Performed By: #### B MPX, CDP #### [facility] [employer] [address] [place] [address] Scalehouse Attendant: Yordan Lr MD Performed By: #### C DP, BMPX ####[facility] InstitutePromoltaEwdwfjvlrqom[address] [place], [place] [address])[phone] Director: Yordan Lr MD Abs.Imm.Granulocyte <0.03 Normal 0.00-0.30 [facility] Comment on above: Performed By: #### B MPX, CDP #### [facility] [employer] [address] [place] [address] Scalehouse Attendant: Yordan Lr MD Performed By: #### C DP, BMPX ####[facility] [address] [place], [place] [address])[phone] Director: Yordan Lr MD Abs.Neutrophil (Seg) 4.10 k/uL Normal 1.50-8.10 [facility] Comment on above: Performed By: #### B MPX, CDP #### [facility] [employer] [address] [place] [address] Scalehouse Attendant: Yordan Lr MD Performed By: #### C DP, BMPX ####[facility] [address] [place], [place] [address])[phone] Director: Yordan Lr MD Basophils/100 WBC (Bld) 0 % Normal 0-2 [facility] Comment on above: Performed By: #### B MPX, CDP #### [address] [address] Scalehouse Attendant: Yordan Lr MD Performed By: #### C DP, BMPX ####[address] [address] Lab Director: Yordan Lr MD Eosinophils (Bld) [#/Vol] 0.14 10*3/uL Normal 0.00-0.44 [facility] Comment on above: Performed By: #### B MPX, CDP #### [address] [address] Scalehouse Attendant: Yordan Lr MD Performed By: #### C DP, BMPX ####[place] [address] Lab Director: Yordan Lr MD Eosinophils/100 WBC (Bld) 2 % Normal 1-4 [facility] Comment on above: Performed By: #### B MPX, CDP #### [address] [address] [employer] Attendant: Yordan Lr MD Performed By: #### C DP, BMPX ####[address] [address] Lab Director: Yordan Lr MD Erythrocyte distribution width (RBC) [Ratio] 12.6 % Normal 11.8-14.4 [facility] Comment on above: Performed By: #### B MPX, CDP #### [address] [address] [employer] Attendant: Yordan Lr MD Performed By: #### C DP, BMPX ####[address] [address] Lab Director: Yordan Lr MD Hematocrit (Bld) [Volume fraction] 37.9 % Normal 36.3-47.1 [facility] Comment on above: Performed By: #### B MPX, CDP #### [address] [address] [employer]house Attendant: Yordan Lr MD Performed By: #### C DP, BMPX ####[address] [phone] Director: Yordan Lr MD Hemoglobin (Bld) [Mass/Vol] 12.7 g/dL Normal 11.9-15.1 [facility] Comment on above: Performed By: #### B MPX, CDP #### [address] [address] [employer] Attendant: Yordan Lr MD Performed By: #### C DP, BMPX ####[address] [phone] Director: Yordan Lr MD Immature granulocytes/100 WBC (Bld) 0 % Normal 0 [facility] Comment on above: Performed By: #### B MPX, CDP #### [address] [address] [employer] Attendant: Yordan Lr MD Performed By: #### C DP, BMPX ####[address] [phone] Director: Yordan Lr MD Lymphocytes (Bld) [#/Vol] 1.04 10*3/uL Low 1.10-3.70 [facility] Comment on above: Performed By: #### B MPX, CDP #### [address] [address] Scalehouse Attendant: Yordan Lr MD Performed By: #### C DP, BMPX ####[address] [address] Lab Director: Yordan Lr MD Lymphocytes/100 WBC (Bld) 18 % Low 24-43 [facility] Comment on above: Performed By: #### B MPX, CDP #### [address] [address] Scalehouse Attendant: Yordan Lr MD Performed By: #### C DP, BMPX ####[address] [address] Lab Director: Yordan Lr MD MCH (RBC) [Entitic mass] 29.7 pg Normal 25.2-33.5 [facility] Comment on above: Performed By: #### B MPX, CDP #### [address] [address] Scalehouse Attendant: Yordan Lr MD Performed By: #### C DP, BMPX ####[address] [phone] Director: Yordan Lr MD MCHC (RBC) [Mass/Vol] 33.5 g/dL Normal 28.4-34.8 [facility] Comment on above: Performed By: #### B MPX, CDP #### [address] [address] Scalehouse Attendant: Yordan Lr MD Performed By: #### C DP, BMPX ####[address] [phone] Director: Yordan Lr MD MCV (RBC) [Entitic vol] 88.6 fL Normal 82.6-102.9 [facility] Comment on above: Performed By: #### B MPX, CDP #### [address] [address] [employer] Attendant: Yordan Lr MD Performed By: #### C DP, BMPX ####[address] [phone] Director: Yordan Lr MD Monocytes (Bld) [#/Vol] 0.58 10*3/uL Normal 0.10-1.20 [facility] Comment on above: Performed By: #### B MPX, CDP #### [address] [address] Scalehouse Attendant: Yordan Lr MD Performed By: #### C DP, BMPX ####[address] [phone] Director: Yordan Lr MD Monocytes/100 WBC (Bld) 10 % Normal 3-12 [facility] Comment on above: Performed By: #### B MPX, CDP #### [address] [address] Scalehouse Attendant: Yordan Lr MD Performed By: #### C DP, BMPX ####[address] [phone] Director: Yordan Lr MD Neutrophil (Seg) 70 % High 36-65 [facility] Comment on above: Performed By: #### B MPX, CDP #### [address] [address] Scalehouse Attendant: Yordan Lr MD Performed By: #### C DP, BMPX ####[address] [phone] Director: Yordan Lr MD NRBC Automated 0.0 per 100 WBC Normal 0.0 [facility] Comment on above: Performed By: #### B MPX, CDP #### [address] [address] Scalehouse Attendant: Yordan Lr MD Performed By: #### C DP, BMPX ####[address] [phone] Director: Yordan Lr MD Platelet mean volume (Bld) [Entitic vol] 10.0 fL Normal 8.1-13.5 [facility] Comment on above: Performed By: #### B MPX, CDP #### [facility] [address] [place] [address] Scalehouse Attendant: Yordan Lr MD Performed By: #### C DP, BMPX ####[facility] [address] [place], [place] [phone] Director: Yordan Lr MD Platelets (Bld) [#/Vol] 161 10*3/uL Normal 138-453 [facility] Comment on above: Performed By: #### B MPX, CDP #### [address] [address] Scalehouse Attendant: Yordan Lr MD Performed By: #### C DP, BMPX ####[facility] [address] [place] [address] [phone] Director: Yordan Lr MD RBC (Bld) [#/Vol] 4.28 10*6/uL Normal 3.95-5.11 [facility] Comment on above: Performed By: #### B MPX, CDP #### [address] [place] [address] Scalehouse Attendant: Yordan Lr MD Performed By: #### C DP, BMPX ####[facility] [address] [place] [address] [phone] Director: Yordan Lr MD WBC (Bld) [#/Vol] 5.9 10*3/uL Normal 3.5-11.3 [facility] Comment on above: Performed By: #### B MPX, CDP #### [facility] [place] [address] Scalehouse Attendant: Yordan Lr MD Performed By: #### C DP, BMPX ####[facility] [address] [place] [address] Lab Director: Yordan Lr MD Drug Scr, Abuse, Uron 2021 Amphetamine(s),Ur Negative Normal NEG [facility] Comment on above: Result Comment: (Positive cutoff 1000 ng/mL) Performed By: #### U AX, RAMA #### [facility] [address] [place] [phone] Scalehouse Attendant: Yordan Lr MD Barbiturate(s),Ur Negative Normal NEG [facility] Comment on above: Result Comment: (Positive cutoff 200 ng/mL) Performed By: #### U AX, RAMA #### [facility] [address] [place] [phone] Scalehouse Attendant: Yordan Lr MD Benzodiazepine(s) Negative Normal NEG [facility] Comment on above: Result Comment: (Positive cutoff 200 ng/mL) Performed By: #### U AX, RAMA #### [address] [address] Scalehouse Attendant: Yordan Lr MD Cannabinoid(s),Ur Negative Normal NEG [facility] Comment on above: Result Comment: (Positive cutoff 50 ng/mL) Performed By: #### U AX, RAMA #### [facility] [address] [place] [phone] Scalehouse Attendant: Yordan Lr MD Cocaine Metabolite Negative Normal NEG [facility] Comment on above: Result Comment: (Positive cutoff 300 ng/mL) Performed By: #### U AX, RAMA #### [facility] [address] [place] [phone] Scalehouse Attendant: Yordan Lr MD Fentanyl, Urine Negative Normal NEG [facility] Comment on above: Result Comment: (Positive cutoff 5 ng/ml) Performed By: #### U AX, RAMA #### [employer] [address] [place] [phone] Scalehouse Attendant: Yordan Lr MD Interpretive Info Assay provides medical screening only. The absence of expected drug(s) and/or Normal [facility] Comment on above: Result Comment: meta bolite(s) may indicate diluted or adulterated urine, limitations of testing or timing of collection. Testing for legal purposes should be confirmed by another method. To request confirmation of test result, please call the lab within 7 days of sample submission. Performed By: #### U AX, RAMA #### [employer] [address] [place] [phone] Scalehouse Attendant: Yordan Lr MD Methadone Ql (U) Negative Normal NEG [facility] Comment on above: Result Comment: (Positive cutoff 300 ng/mL) Performed By: #### U AX, RAMA #### [facility] [address] [place] [phone] Scalehouse Attendant: Yordan Lr MD Opiate(s), Ur Negative Normal NEG [facility] Comment on above: Result Comment: (Positive cutoff 300 ng/mL) Performed By: #### U AX, RAMA #### [employer] [address] [place] [phone] Scalehouse Attendant: Yordan Lr MD Oxycodone, Urine Negative Normal NEG [facility] Comment on above: Result Comment: (Positive cutoff 100 ng/mL) Performed By: #### U AX, RAMA #### [employer] [address] [place] [address] Scalehouse Attendant: Yordan Lr MD Phencyclidine, Ur Negative Normal NEG [facility] Comment on above: Result Comment: (Positive cutoff 25 ng/mL) Performed By: #### U AX, RAMA #### [employer] [address] [place] [address] Scalehouse Attendant: Yordan Lr MD Hemoglobin A1Con 04-15-2022 Glucose [Mass/Vol] 120 mg/dL Normal [facility] Comment on above: Result Comment: The ADA and AACC recommend providing the estimated average glucose result to permit better patient understanding of their HBA1c result. Performed By: #### F T4, TSH, VD25, B12, ERTPF, GLYHGB, ALB ####[facility] [address] [place], [place] [id number] Lab Director: Yordan Lr MD Performed By: #### G LYHGB, ALB, ERTPF, B12, FT4, TSH, VD25 ####[facility] [address] [place] [address] Lab Director: Yordan Lr MD HbA1c (Bld) [Mass fraction] 5.8 % Normal 4.0-6.0 [facility] Comment on above: Performed By: #### F T4, TSH, VD25, B12, ERTPF, GLYHGB, ALB ####[facility] [address] [place] [address] Lab Director: Yordan Lr MD Performed By: #### G LYHGB, ALB, ERTPF, B12, FT4, TSH, VD25 ####[facility] [address] [place] [address] Lab Director: Yordan Lr MD Glucose [Mass/Vol] 120 mg/dL [facility] Comment on above: The ADA and AACC rec ommend providing the estimated average glucose result to permit better patient understanding of their HBA1c result. HbA1c (Bld) [Mass fraction] 5.8 % 4.0 - 6.0 % [facility] [employer] UA w/Reflex Cultureon 2021 Bilirubin, SemiQt,Ur Negative Normal NEG [facility] Comment on above: Performed By: #### U AX, RAMA #### [facility] [address] [place] [address] [phone] Scalehouse Attendant: Yordan Lr MD Blood, Urine Negative Normal NEG [facility] Comment on above: Performed By: #### U AX, RAMA #### [address] [address] Scalehouse Attendant: Yordan Lr MD Clarity (U) Clear Normal CLEAR [facility] Comment on above: Performed By: #### U AX, RAMA #### [address] [address] Scalehouse Attendant: Yordan Lr MD Color (U) Yellow Normal YEL [facility] Comment on above: Performed By: #### U AX, RAMA #### [address] [address] Scalehouse Attendant: Yordan Lr MD Comment Microscopic exam not performed based on chemical results unless requested in Normal [facility] Comment on above: Result Comment: orig inal order. Performed By: #### U AX, RAMA #### [address] [address] Scalehouse Attendant: Yordan Lr MD Glucose Ql (U) Negative Normal NEG [facility] Comment on above: Performed By: #### U AX, RAMA #### [address] [address] Scalehouse Attendant: Yordan Lr MD Ketones Ql (U) TRACE Abnormal NEG [facility] Comment on above: Performed By: #### U AX, RAMA #### [address] [address] Scalehouse Attendant: Yordan Lr MD Leukocyte esterase Test strip Ql (U) Negative Normal NEG [facility] Comment on above: Performed By: #### U AX, RAMA #### [address] [address] Scalehouse Attendant: Yordan Lr MD Nitrite,Ur Negative Normal NEG [facility] Comment on above: Performed By: #### U AX, RAMA #### [address] [address] Scalehouse Attendant: Yordan Lr MD PH,Ur 6.5 Normal 5.0-8.0 [facility] Comment on above: Performed By: #### U AX, RAMA #### [address] [address] Scalehouse Attendant: Yordan Lr MD Protein Ql (U) Negative Normal NEG [facility] Comment on above: Performed By: #### U AX, RAMA #### [address] [address] Scalehouse Attendant: Yordan Lr MD Spec. Price,Ur 1.047 High 1.005-1.030 [facility] Comment on above: Performed By: #### U AX, RAMA #### [address] [address] Scalehouse Attendant: Yordan Lr MD Urobilinogen,Ur Normal Normal NORM [facility] Comment on above: Performed By: #### U AX, RAMA #### [address] [address] Scalehouse Attendant: Yordan Lr MD Albuminon 04-14-2022 Albumin [Mass/Vol] 4.1 g/dL Normal 3.5-5.2 [facility] Comment on above: Performed By: #### F T4, TSH, VD25, B12, ERTPF, GLYHGB, ALB #### [address] [address] Scalehouse Attendant: Yordan Lr MD Performed By: #### G LYHGB, ALB, ERTPF, B12, FT4, TSH, VD25 #### [address] [address] Scalehouse Attendant: Yordan Lr MD Albumin [Mass/Vol] 4.1 g/dL 3.5 - 5.2 g/dL [facility] CBC AUTO DIFFon 04-14-2022 BASO # 0.0 103/ul Normal 0.0-0.1 [facility] Comment on above: Performed By: #### C BC #### [facility] [address] [address] [address] Brii Humphries Basophils/100 WBC (Bld) 0.4 % Normal 0.2-2.0 [facility] Comment on above: Performed By: #### C BC #### [facility] [address] [address] [address] Brii Humphries EO # 0.2 103/ul Normal 0.0-0.7 [facility] Comment on above: Performed By: #### C BC #### [facility] [address] [place] [address] Dr. Brii Humphries Eosinophils/100 WBC (Bld) 2.0 % Normal 0.9-7.0 [facility] Comment on above: Performed By: #### C BC #### [facility] [address] [place] [address] [address] Brii Humphries Hematocrit (Bld) [Volume fraction] 40.1 % Normal 36.0-48.0 [facility] Comment on above: Performed By: #### C BC #### [facility] [address] [place] [address] [address] Brii Humphries Hemoglobin (Bld) [Mass/Vol] 13.1 g/dL Normal 12.0-16.0 [facility] Comment on above: Performed By: #### C BC #### [facility] [address] [place] [address] [address] Brii Humphries IG # 0.02 10e3/ul Normal 0.00-0.03 [facility] Comment on above: Performed By: #### C BC #### [facility] [address] [place] [address] Dr. Brii Humphries IG % 0.3 % Normal 0.0-0.5 [facility] Comment on above: Performed By: #### C BC #### [facility] [address] [address] [address] Brii Humphries LYMPH # 1.1 103/ul Critically low 1.2-3.8 [facility] Comment on above: Performed By: #### C BC #### [facility] [address] [place] [address] Dr. Brii Humphries Lymphocytes/100 WBC (Bld) 15.0 % Critically low 20.5-60.0 [facility] Comment on above: Performed By: #### C BC #### [facility] [address] [place] [address] Dr. Brii Humphries MANUAL DIFF REQ NO Normal [facility] Comment on above: Performed By: #### C BC #### [facility] [address] [place] [address] Dr. Brii Humphries MCH (RBC) [Entitic mass] 28.8 pg Normal 26.7-34.0 [facility] Comment on above: Performed By: #### C BC #### [facility] [address] [place] [address] Dr. Brii Humphries MCHC (RBC) [Mass/Vol] 32.7 g/dL Normal 29.9-35.2 [facility] Comment on above: Performed By: #### C BC #### [facility] [address] [place] [address] Dr. Brii Humphries MCV (RBC) [Entitic vol] 88.1 fL Normal 81.0-99.0 [facility] Comment on above: Performed By: #### C BC #### [facility] [address] [place] [address] Dr. Brii Humphries MONO # 0.5 103/ul Normal 0.3-0.8 [facility] Comment on above: Performed By: #### C BC #### [facility] [address] [place] [address] Dr. Brii Humphries Monocytes/100 WBC (Bld) 6.6 % Normal 1.7-12.0 [facility] Comment on above: Performed By: #### C BC #### [facility] [address] [place] [address] Dr. Brii Humphries NEUT # 5.6 103/ul Normal 1.4-6.5 [facility] Comment on above: Performed By: #### C BC #### [facility] [address] [place] [address] Dr. Brii Humphries Neutrophils/100 WBC (Bld) 75.7 % Critically high 43.0-75.0 [facility] Comment on above: Performed By: #### C BC #### [facility] [address] [place] [address] Dr. Brii Humphries Platelet mean volume (Bld) [Entitic vol] 9.7 fL Normal 9.5-13.5 [facility] Comment on above: Performed By: #### C BC #### [facility] [address] [place] [address] Dr. Brii Humphries PLT 174 103/ul Normal 150-450 [facility] Comment on above: Performed By: #### C BC #### [facility] [address] [place] [address] Dr. Brii Humphries RBC 4.55 106/ul Normal 4.20-5.40 [facility] Comment on above: Performed By: #### C BC #### [facility] [address] [place] [address] Dr. Brii Humphries WBC 7.4 103/ul Normal 4.0-11.0 [facility] Comment on above: Performed By: #### C BC #### [facility] [address] [place] [address] CHEST ABDOMEN PELVIS [...] Jesusita Quintanilla MD 04/14/22 Final result Normal [facility]: [facility], 04/14/2022 12:47 PM PST HISTORY: [...] by: SHAHZAD TOMAS Date: 2022-04-14 16:45 Normal [facility] CT FACIAL BONES WO CONon CT FACIAL [...] FELIPA HOPPER Date: 2022-04-14 16:48 Normal [facility] CT HEAD WO CONon 04-14-2022 CT HEAD [...] FELIPA HOPPER Date: 2022-04-14 16:43 Normal [facility] CT HEAD WO CONTRASTon 2021 CT HEAD [...] Jayant Rodrigues MD 04/14/22 Final result Normal [facility] Acute left subdural hematoma overlying the parietooccipital lobes measuring up to 4 mm in thickness with no significant associated mass effect. Critical results were called by Dr. Jayant Martínez to Dr. Cain on 04/14/2022 at 8:16 p.m.. [facility] RIS CONSOLIDATED EXAMINATION: CT OF THE HEAD WITHOUT CONTRAST [...] of the visualized skull or soft tissues. [facility] Jayant Fernandez MD - 04/14/2022 EXAMINATION: CT OF THE [...] Dr. Cain on 04/14/2022 at 8:16 p.m.. [employer] Phone: Radiology Study observation (narrative) [employer] Phone: CT HEAD WO CONTRASTOrdered B y: Jayant Rodrigues on 04-14-2022 [facility] [employer] Work Phone: CT LUMBAR SPINE TRAUMA RECON STRUCTIONon [...] Jesusita Quintanilla MD 04/14/22 Final result Normal [facility] CT THORACIC SPINE TRAUMA REC ONSTRUCTIONon 04-14-2022 [...] Jesusita Quintanilla MD 04/14/22 Final result Normal [facility] Covid-19 PCR (CVDTBH)on SARS-CoV-2 (COVID-19) RNA LI+probe Ql (Unsp spec) Not detected Normal NOT DETECTED [facility] Comment on above: Result Comment: When diagnostic [...] for this test is supported by the Shipping And Receiving of Health and Human Service's declaration that [...] longer be used). Performed By: #### [facility] #### [facility] [address] [place] [address] Dr. Brii Humphries DRUG SCREEN MULTI URINEon Amphetamine Screen, Ur Negative NEGATIVE [facility] Comment on above: (Positive cutoff 1000 ng/mL) Barbiturate Screen, Ur Negative NEGATIVE [facility] Comment on above: (Positive cutoff 200 ng/mL) Benzodiazepine Screen, Urine Negative NEGATIVE [facility] Comment on above: (Positive cutoff 200 ng/mL) Cannabinoid Scrn, Ur Negative NEGATIVE [facility] Comment on above: (Positive cutoff 50 ng/mL) Cocaine Metabolite, Urine Negative NEGATIVE [facility] Comment on above: (Positive cutoff 300 ng/mL) Fentanyl, Ur Negative NEGATIVE [facility] Comment on above: (Positive cutoff 5 ng/ml) Methadone Screen, Urine Negative NEGATIVE [facility] Comment on above: (Positive cutoff 300 ng/mL) Opiates, Urine Negative NEGATIVE [facility] Comment on above: (Positive cutoff 300 ng/mL) Oxycodone Screen, Ur Negative NEGATIVE [employer] Comment on above: (Positive cutoff 100 ng/mL) Phencyclidine, Urine Negative NEGATIVE [employer] Comment on above: (Positive cutoff 25 ng/mL) Test Information Assay provides medical screening only. The absence of expected drug(s) and/or metabolite(s) may indicate diluted or adulterated urine, limitations of testing or timing of collection. [employer] Comment on above: Testing for legal pu rposes should be confirmed by another method. To request confirmation of test result, please call the lab within 7 days of sample submission. [employer] No Panel Informationon 04-14 1. No acute findings within the chest, abdomen common pelvis or within the thoracolumbar spine. 2. Multiple liver lesions measuring up to 8 cm are likely hemangiomas. 3. Calcified uterine fibroids. [facility] RIS CONSOLIDATED EXAMINATION: CT OF THE CHEST, ABDOMEN, [...] degenerative changes of the upper lumbar spine. [facility] RIS CONSOLIDATED Jesusita Quintanilla MD - 04/14/2022 EXAMINATION: [...] are likely hemangiomas. 3. Calcified uterine fibroids. [facility] [employer] Work Phone: [facility] Radiology Study observation (narrative) [facility] Work Phone: No Panel InformationOrdered By: Jesusita Quintanilla on 04-14-2022 [facility] Work Phone: PROF CHEM 8 (BAS METB)on Potassium [Moles/Vol] 4.1 mmol/L Normal 3.5-5.1 [facility] Comment on above: Performed By: #### B MP #### [facility] [address] [place] [address] Dr. Brii Humphries Anion gap [Moles/Vol] 7.5 mmol/L Normal [facility] Comment on above: Performed By: #### B MP #### [facility] [address] [address] [address] Brii Humphries Calcium [Mass/Vol] 10.6 mg/dL Critically high 8.5-10.1 [facility] Comment on above: Performed By: #### B MP #### [facility] [address] [address] [address] Brii Humphries Chloride [Moles/Vol] 106 mmol/L Normal 98-107 [facility] Comment on above: Performed By: #### B MP #### [facility] [address] [address] [address] Brii Humphries CO2 [Moles/Vol] 28.6 mmol/L Normal 21.0-32.0 [facility] Comment on above: Performed By: #### B MP #### [facility] [address] [address] [address] Brii Humphries Creatinine [Mass/Vol] 0.90 mg/dL Normal 0.55-1.02 [facility] Comment on above: Performed By: #### B MP #### [facility] [address] [address] [address] Brii Humphries EGFR-AF IVORIAN >60 Normal >=60 [facility] Comment on above: Performed By: #### B MP #### [facility] [address] [address] [address] Brii Humphries EGFR-NON AF IVORIAN =60 Normal >=60 [facility] Comment on above: Performed By: #### B MP #### [facility] [address] [address] [address] Brii Humphries Glucose [Mass/Vol] 106 mg/dL Normal 74-106 [facility] Comment on above: Performed By: #### B MP #### [facility] [address] [address] [address] Brii Humphries Sodium [Moles/Vol] 138 mmol/L Normal 136-145 [facility] Comment on above: Performed By: #### B MP #### [facility] [address] [address] [address] Brii Humphries Urea nitrogen [Mass/Vol] 22.0 mg/dL Critically high 7.0-18.0 [facility] Comment on above: Performed By: #### B MP #### [facility] [address] [place] [address] Dr. Brii Humphries Urea nitrogen/Creatinine [Mass ratio] 24.4 mg/mg Normal [facility] Comment on above: Performed By: #### B MP #### [facility] [address] [address] [address] Brii Humphries PROTIMEon 04-14-2022 PT Coag (PPP) [Time] 10.9 s Normal 9.0-11.6 [facility] Comment on above: Performed By: #### P TT, PT #### [facility] [address] [place] [address] Dr. Brii Humphries INR Coag (PPP) [Relative time] 1.01 {INR} Normal [facility] Comment on above: Performed By: #### P TT, PT #### [facility] [address] [place] [address] Dr. Brii Humphries INR GUIDELINES SEE BELOW Normal [facility] Comment on above: Result Comment: RAMSEY RED INR: 2.0 - 3.0 CONDITIONS NOT LISTED BELOW 2.5 - 3.5 FOR PROSTHETIC HEART VALVE REPLACEMENT 2.5 - 3.5 RECURRENT THROMBOSIS Performed By: #### P TT, PT #### [facility] [address] [place], [place] [address] Dr. Brii Humphries PTTon 04-14-2022 aPTT Coag (Bld) [Time] 29.1 s Normal 22.3-36.2 [facility] Comment on above: Performed By: #### P TT, PT #### [facility] [address] [place], [place] [address] Dr. Brii Humphries T4, Freeon 04-14-2022 Thyroxine, Free 1.18 ng/dL 0.93 - 1.70 ng/dL [facility] TROPONIN, HIGH SENSITIVITYon 04-14-2022 HSTROP 12.5 pg/mL Normal 4.0-51.3 [facility] Comment on above: Result Comment: CUT- OFF POINTS HAVE BEEN ESTABLISHED BASED ON THE FOURTH UNIVERSAL DEFINITIONS OF MYOCARDIAL INFARCTION. THE UPPER REFERENCE LIMIT (URL) OF TROPONIN, DEFINED THE 99TH PERCENTILE OF cTnI DISTRIBUTION IN A REFERENCE POPULATION, HAS BEEN CONFIRMED THE DECISION THRESHOLD FOR [place] DIAGNOSIS. Performed By: #### H STROPN ####[facility] [address] [place], [place] [address]TaDr. Brii Humphries TSHon 04-14-2022 TSH Qn 3.10 m[IU]/L [facility] TYPE AND SCREENon 04-14-2022 ABO/Rh Positive [facility] Arm Band Number [id number] [facility] Expiration Date 04/17/2022,2359 [facility] Thyroid Stim. Horm.on 2021 Thyroid Stim. Horm. 3.10 uIU/mL Normal 0.30-5.00 [facility] Comment on above: Performed By: #### F T4, TSH, VD25, B12, ERTPF, GLYHGB, ALB ####[facility] [address] [place], [place] [phone] [facility] Director: Yordan Lr MD Performed By: #### G LYHGB, ALB, ERTPF, B12, FT4, TSH, VD25 #### [employer] [facility] [place], [place] [phone] Scalehouse Attendant: Yordan Lr MD Thyroxine, Freeon 04-14-2022 Thyroxine, Free 1.18 ng/dL Normal 0.93-1.70 [facility] Comment on above: Performed By: #### F T4, TSH, VD25, B12, ERTPF, GLYHGB, ALB ####[employer] [address] [place] [address] [phone] lab Director: Yordan Lr MD Performed By: #### G LYHGB, ALB, ERTPF, B12, FT4, TSH, VD25 #### [facility] [facility] [address] [place] [address] [phone] Scalehouse Attendant: Yordan Lr MD Trauma Panelon 04-14-2022 Anion gap [Moles/Vol] 13 mmol/L 9 - 17 mmol/L [facility] aPTT Coag (Bld) [Time] 24.8 s [facility] Comment on above: IV Heparin Therapy Range: 48.6-77.8 Blood Bank Specimen BILL FOR SERVICES PERFORMED [facility] Carboxyhemoglobin 5.6 % High 0 - 5 % [facility] Comment on above: Reference Range: Non-Smokers 0-2% Average Smoker 2-4% Heavy Smoker <10% Chloride [Moles/Vol] 103 mmol/L 98 - 10 7 mmol/L [facility] CO2 [Moles/Vol] 17 mmol/L Low 20 - 31 mmol/L [facility] Creatinine [Mass/Vol] 0.71 mg/dL 0.50 - 0.90 mg/dL [facility] Ethanol [Mass/Vol] mg/dL NINF - 10 mg/dL [facility] Ethanol percent <0.010 NINF - 0.010 % [facility] FIO2 INFORMATION NOT PROVIDED [facility] GFR/1.73 sq M.predicted MDRD (S/P/Bld) [Vol rate/Area] - PINF [facility] Comment on above: Effective Mar 11, [...] 104 mg/dL High 70 - 99 mg/dL [facility] hCG Qual Negative NEGATIVE [facility] Comment on above: Specimens with hCG l evels near the threshold of the test (25 mIU/mL) may give a negative or indeterminate result. In such cases, another test should be performed with a new specimen in 48-72 hours. If early is suspected clinically in this setting, correlation with quantitative serum b-hCG level is suggested. [facility] has confirmed the use of plasma for this test. This has not been cleared or approved by the U.S. Food and Drug Administration. The FDA has determined that such clearance is not necessary. HCO3 (Bld) [Moles/Vol] 20.1 mmol/L Low 24 - 30 mmol/L [facility] Hematocrit (Bld) [Volume fraction] 40.9 % 36.3 - 47.1 % [facility] Hemoglobin (Bld) [Mass/Vol] 13.6 g/dL 11.9 - 15.1 g/dL [facility] INR Coag (Bld) [Relative time] 1.0 {INR} [facility] Comment on above: Therapeutic Range: Moderate Anticoagulant Intensity: INR = 2.0-3.0 High Anticoagulant Intensity: INR = 2.5-3.5 Interpretation and review of laboratory results Abnormal [facility] MCH (RBC) [Entitic mass] 29.6 pg 25.2 - 33.5 pg [facility] MCHC (RBC) [Mass/Vol] 33.3 g/dL 28.4 - 34.8 g/dL [facility] MCV (RBC) [Entitic vol] 89.1 fL 82.6 - 102.9 fL [facility] Negative Base Excess, Uri 1.3 mmol/L 0.0 - 2.0 mmol/L [facility] NRBC Automated 0.0 0.0 per 100 WBC [facility] Oxygen saturation in Blood 97.0 % High 60.0 - 85.0 % [facility] pCO2, Uri 26.1 Low [facility] pH, Uri 7.499 High 7.320 - 7.420 [facility] Platelet distribution width (Bld) [Ratio] 12.5 % 11.8 - 14.4 % [facility] Platelet mean volume (Bld) [Entitic vol] 9.8 fL 8.1 - 13.5 fL [facility] Platelets (Bld) [#/Vol] 162 10*3/uL [facility] pO2, Uri 74.5 High [facility] Pt Temp 37.0 [facility] RBC (Bld) [#/Vol] 4.59 10*6/uL 3.95 - 5.1 1 m/uL [facility] Sodium [Moles/Vol] 133 mmol/L Low 135 - 144 mmol/L [facility] Urea nitrogen (BldV) [Mass/Vol] 19 mg/dL 8 - 23 mg/dL [facility] WBC (Bld) [#/Vol] 7.8 10*3/uL [facility] Trauma Profileon 04-14-2022 Anion gap [Moles/Vol] 13 mmol/L Normal 9-17 [facility] Comment on above: Performed By: #### F T4, TSH, VD25, B12, ERTPF, GLYHGB, ALB ####[employer] [address] [place] [address] Lab Director: Yordan Lr MD Performed By: #### G LYHGB, ALB, ERTPF, B12, FT4, TSH, VD25 #### [facility] [address] [place] [address] Scalehouse Attendant: Yordan Lr MD Chloride [Moles/Vol] 103 mmol/L Normal 98-107 [facility] Comment on above: Performed By: #### F T4, TSH, VD25, B12, ERTPF, GLYHGB, ALB ####[facility] [address] [place] [address] Lab Director: Yordan Lr MD Performed By: #### G LYHGB, ALB, ERTPF, B12, FT4, TSH, VD25 #### [facility] [address] [place] [address] Scalehouse Attendant: Yordan Lr MD CO2 [Moles/Vol] 17 mmol/L Low 20-31 [facility] Comment on above: Performed By: #### F T4, TSH, VD25, B12, ERTPF, GLYHGB, ALB ####[address] [address] Lab Director: Yordan Lr MD Performed By: #### G LYHGB, ALB, ERTPF, B12, FT4, TSH, VD25 #### [address] [address] Scalehouse Attendant: Yordan Lr MD Creatinine [Mass/Vol] 0.71 mg/dL Normal 0.50-0.90 [facility] Comment on above: Performed By: #### F T4, TSH, VD25, B12, ERTPF, GLYHGB, ALB ####[facility] [address] [place] [address] Lab Director: Yordan Lr MD Performed By: #### G LYHGB, ALB, ERTPF, B12, FT4, TSH, VD25 #### [facility] [address] [place] [address] Scalehouse Attendant: Yordan Lr MD Ethanol [Mass/Vol] mg/dL Normal <10 [facility] Comment on above: Performed By: #### F T4, TSH, VD25, B12, ERTPF, GLYHGB, ALB ####[address] [place] [address] Lab Director: Yordan Lr MD Performed By: #### G LYHGB, ALB, ERTPF, B12, FT4, TSH, VD25 #### [address] [address] Scalehouse Attendant: Yordan Lr MD Ethanol percent <0.010 Normal <0.010 [facility] Comment on above: Performed By: #### F T4, TSH, VD25, B12, ERTPF, GLYHGB, ALB ####[address] [address] Lab Director: Yordan Lr MD Performed By: #### G LYHGB, ALB, ERTPF, B12, FT4, TSH, VD25 #### [address] [address] Scalehouse Attendant: Yordan Lr MD GFR/1.73 sq M.predicted among non-blacks MDRD (S/P/Bld) [Vol rate/Area] mL/min/{1.73_m2} Normal >60 [facility] Comment on above: Result Comment: Effective Mar [...] T4, TSH, VD25, B12, ERTPF, GLYHGB, ALB ####[address] [address] Lab Director: Yordan Lr MD Performed By: #### G LYHGB, ALB, ERTPF, B12, FT4, TSH, VD25 #### [address] [address] Scalehouse Attendant: Yordan Lr MD Glucose [Mass/Vol] 104 mg/dL High 70-99 [facility] Comment on above: Performed By: #### F T4, TSH, VD25, B12, ERTPF, GLYHGB, ALB ####[facility] [address] [place] [address] Lab Director: Yordan Lr MD Performed By: #### G LYHGB, ALB, ERTPF, B12, FT4, TSH, VD25 #### [address] [address] Scalehouse Attendant: Yordan Lr MD Potassium [Moles/Vol] 4.1 mmol/L Normal 3.7-5.3 [facility] Comment on above: Performed By: #### F T4, TSH, VD25, B12, ERTPF, GLYHGB, ALB ####[facility] [address] [place] [address] Lab Director: Yordan Lr MD Performed By: #### G LYHGB, ALB, ERTPF, B12, FT4, TSH, VD25 #### [facility] [address] [place] [address] Scalehouse Attendant: Yordan Lr MD Sodium [Moles/Vol] 133 mmol/L Low 135-144 [facility] Comment on above: Performed By: #### F T4, TSH, VD25, B12, ERTPF, GLYHGB, ALB ####[facility] [address] [place] [address] Lab Director: Yordan Lr MD Performed By: #### G LYHGB, ALB, ERTPF, B12, FT4, TSH, VD25 #### [address] [address] Scalehouse Attendant: Yordan Lr MD Urea nitrogen [Mass/Vol] 19 mg/dL Normal 8-23 [facility] Comment on above: Performed By: #### F T4, TSH, VD25, B12, ERTPF, GLYHGB, ALB ####[address] [address] lab Director: Yordan Lr MD Performed By: #### G LYHGB, ALB, ERTPF, B12, FT4, TSH, VD25 #### [facility] [address] [place] [address] Scalehouse Attendant: Yordan Lr MD Body Temp. 37.0 Normal [facility] Comment on above: Performed By: #### F T4, TSH, VD25, B12, ERTPF, GLYHGB, ALB ####[address] [address] Lab Director: Yordan Lr MD Performed By: #### G LYHGB, ALB, ERTPF, B12, FT4, TSH, VD25 #### [facility] [address] [place] [address] Scalehouse Attendant: Yordan Lr MD Carboxy Hgb 5.6 % High 0-5 [facility] Comment on above: Result Comment: Reference Range: Non-Smokers 0-2% Average Smoker 2-4% Heavy Smoker <10% Performed By: #### F T4, TSH, VD25, B12, ERTPF, GLYHGB, ALB ####[address] [address] Lab Director: Yordan Lr MD Performed By: #### G LYHGB, ALB, ERTPF, B12, FT4, TSH, VD25 #### [facility] [address] [place] [address] Scalehouse Attendant: Yordan Lr MD FIO2 INFORMATION NOT PROVIDED Normal [facility] Comment on above: Performed By: #### F T4, TSH, VD25, B12, ERTPF, GLYHGB, ALB ####[address] [address] Lab Director: Yordan Lr MD Performed By: #### G LYHGB, ALB, ERTPF, B12, FT4, TSH, VD25 #### [address] [address] Scalehouse Attendant: Yordan Lr MD HCO3 (Bld) [Moles/Vol] 20.1 mmol/L Low 24-30 [facility] Comment on above: Performed By: #### F T4, TSH, VD25, B12, ERTPF, GLYHGB, ALB ####[address] [address] Lab Director: Yordan Lr MD Performed By: #### G LYHGB, ALB, ERTPF, B12, FT4, TSH, VD25 #### [address] [address] Scalehouse Attendant: Yordan Lr MD Negative Base Excess 1.3 mmol/L Normal 0.0-2.0 [facility] Comment on above: Performed By: #### F T4, TSH, VD25, B12, ERTPF, GLYHGB, ALB ####[address] [address] Lab Director: Yordan Lr MD Performed By: #### G LYHGB, ALB, ERTPF, B12, FT4, TSH, VD25 #### [address] [address] Scalehouse Attendant: Yordan Lr MD Oxygen saturation in Blood 97.0 % High 60.0-85.0 [facility] Comment on above: Performed By: #### F T4, TSH, VD25, B12, ERTPF, GLYHGB, ALB ####[address] [address] Lab Director: Yordan Lr MD Performed By: #### G LYHGB, ALB, ERTPF, B12, FT4, TSH, VD25 #### [facility] [address] [place] [address] Scalehouse Attendant: Yordan Lr MD pCO2 26.1 mm Hg Low 39-55 [facility] Comment on above: Performed By: #### F T4, TSH, VD25, B12, ERTPF, GLYHGB, ALB ####[address] [address] Lab Director: Yordan Lr MD Performed By: #### G LYHGB, ALB, ERTPF, B12, FT4, TSH, VD25 #### [facility] [address] [place] [address] Scalehouse Attendant: Yordan Lr MD pH (Bld) 7.499 [pH] High 7.320-7.420 [facility] Comment on above: Performed By: #### F T4, TSH, VD25, B12, ERTPF, GLYHGB, ALB ####[address] [address] Lab Director: Yordan Lr MD Performed By: #### G LYHGB, ALB, ERTPF, B12, FT4, TSH, VD25 #### [address] [address] Scalehouse Attendant: Yordan Lr MD pO2 74.5 mm Hg High 30-50 [facility] Comment on above: Performed By: #### F T4, TSH, VD25, B12, ERTPF, GLYHGB, ALB ####[address] [address] Lab Director: Yordan Lr MD Performed By: #### G LYHGB, ALB, ERTPF, B12, FT4, TSH, VD25 #### [facility] [address] [place] [address] [phone] Scalehouse Attendant: Yordan Lr MD HCG Screen, Blood Negative Normal [facility] Comment on above: Result Comment: Spec imens with hCG levels near the threshold of the test (25 mIU/mL) may give a negative or indeterminate result. In such cases, another test should be performed with a new specimen in 48-72 hours. If early is suspected clinically in this setting, correlation with quantitative serum b-hCG level is suggested. [facility] has confirmed the use of plasma for this test. This has not been cleared or approved by the U.S. Food and Drug Administration. The FDA has determined that such clearance is not necessary. Performed By: #### F T4, TSH, VD25, B12, ERTPF, GLYHGB, ALB ####[place] [address] Lab Director: Yordan Lr MD Performed By: #### G LYHGB, ALB, ERTPF, B12, FT4, TSH, VD25 #### [place] [phone] Scalehouse Attendant: Yordan Lr MD aPTT Coag (Bld) [Time] 24.8 s Normal 20.5-30.5 [facility] Comment on above: Result Comment: IV Heparin Therapy Range: 48.6-77.8 Performed By: #### F T4, TSH, VD25, B12, ERTPF, GLYHGB, ALB ####[place] [id number] Lab Director: Yrodan Lr MD Performed By: #### G LYHGB, ALB, ERTPF, B12, FT4, TSH, VD25 #### [place] [phone] Scalehouse Attendant: Yordan Lr MD INR Coag (PPP) [Relative time] 1.0 {INR} Normal [facility] Comment on above: Result Comment: Therapeutic Range: Moderate Anticoagulant Intensity: INR = 2.0-3.0 High Anticoagulant Intensity: INR = 2.5-3.5 Performed By: #### F T4, TSH, VD25, B12, ERTPF, GLYHGB, ALB ####[address] [phone] [facility] Director: Yordan Lr MD Performed By: #### G LYHGB, ALB, ERTPF, B12, FT4, TSH, VD25 #### [place] [phone] Scalehouse Attendant: Yordan Lr MD PT Coag (PPP) [Time] 10.9 s Normal 9.1-12.3 [facility] Comment on above: Performed By: #### F T4, TSH, VD25, B12, ERTPF, GLYHGB, ALB ####[place] [address] [facility] Director: Yordan Lr MD Performed By: #### G LYHGB, ALB, ERTPF, B12, FT4, TSH, VD25 #### [place] [address] Scalehouse Attendant: Yordan Lr MD Erythrocyte distribution width (RBC) [Ratio] 12.5 % Normal 11.0-15.0 [facility] Comment on above: Performed By: #### F T4, TSH, VD25, B12, ERTPF, GLYHGB, ALB ####[place] [address] [facility] Director: Yordan Lr MD Performed By: #### G LYHGB, ALB, ERTPF, B12, FT4, TSH, VD25 #### [place] [phone] Scalehouse Attendant: Yordan Lr MD Performed By: #### C BC #### [facility] [address] [place] [address] Dr. Brii Humphries Hematocrit (Bld) [Volume fraction] 40.9 % Normal 36.3-47.1 [facility] Comment on above: Performed By: #### F T4, TSH, VD25, B12, ERTPF, GLYHGB, ALB ####[address] [address] [facility] Director: Yordan Lr MD Performed By: #### G LYHGB, ALB, ERTPF, B12, FT4, TSH, VD25 #### [address] [address] Scalehouse Attendant: Yordan Lr MD Hemoglobin (Bld) [Mass/Vol] 13.6 g/dL Normal 11.9-15.1 [facility] Comment on above: Performed By: #### F T4, TSH, VD25, B12, ERTPF, GLYHGB, ALB ####[address] [address] Lab Director: Yordan Lr MD Performed By: #### G LYHGB, ALB, ERTPF, B12, FT4, TSH, VD25 #### [address] [address] Scalehouse Attendant: Yordan Lr MD MCH (RBC) [Entitic mass] 29.6 pg Normal 25.2-33.5 [facility] Comment on above: Performed By: #### F T4, TSH, VD25, B12, ERTPF, GLYHGB, ALB ####[address] [phone] Lab Director: Yordan Lr MD Performed By: #### G LYHGB, ALB, ERTPF, B12, FT4, TSH, VD25 #### [address] [phone] Scalehouse Attendant: Yordan Lr MD MCHC (RBC) [Mass/Vol] 33.3 g/dL Normal 28.4-34.8 [facility] Comment on above: Performed By: #### F T4, TSH, VD25, B12, ERTPF, GLYHGB, ALB ####[address] [address] [facility] Director: Yordan Lr MD Performed By: #### G LYHGB, ALB, ERTPF, B12, FT4, TSH, VD25 #### [place] [address] Scalehouse Attendant: Yordan Lr MD MCV (RBC) [Entitic vol] 89.1 fL Normal 82.6-102.9 [facility] Comment on above: Performed By: #### F T4, TSH, VD25, B12, ERTPF, GLYHGB, ALB ####[place] [address] [facility] Director: Yordan Lr MD Performed By: #### G LYHGB, ALB, ERTPF, B12, FT4, TSH, VD25 #### [place] [address] Scalehouse Attendant: Yordan Lr MD NRBC Automated 0.0 per 100 WBC Normal 0.0 [facility] Comment on above: Performed By: #### F T4, TSH, VD25, B12, ERTPF, GLYHGB, ALB ####[address] [address] Lab Director: Yordan Lr MD Performed By: #### G LYHGB, ALB, ERTPF, B12, FT4, TSH, VD25 #### [address] [address] Scalehouse Attendant: Yordan Lr MD Platelet mean volume (Bld) [Entitic vol] 9.8 fL Normal 8.1-13.5 [facility] Comment on above: Performed By: #### F T4, TSH, VD25, B12, ERTPF, GLYHGB, ALB ####[facility] [address] [place] [address] Lab Director: Yordan Lr MD Performed By: #### G LYHGB, ALB, ERTPF, B12, FT4, TSH, VD25 #### [facility] [address] [place] [address] Scalehouse Attendant: Yordan Lr MD Platelets (Bld) [#/Vol] 162 10*3/uL Normal 138-453 [facility] Comment on above: Performed By: #### F T4, TSH, VD25, B12, ERTPF, GLYHGB, ALB ####[address] [phone] Director: Yordan Lr MD Performed By: #### G LYHGB, ALB, ERTPF, B12, FT4, TSH, VD25 #### [address] [address] Scalehouse Attendant: Yordan Lr MD RBC (Bld) [#/Vol] 4.59 10*6/uL Normal 3.95-5.11 [facility] Comment on above: Performed By: #### F T4, TSH, VD25, B12, ERTPF, GLYHGB, ALB ####[address] [phone] Director: Yordan Lr MD Performed By: #### G LYHGB, ALB, ERTPF, B12, FT4, TSH, VD25 #### [address] [address] Scalehouse Attendant: Yordan Lr MD WBC (Bld) [#/Vol] 7.8 10*3/uL Normal 3.5-11.3 [facility] Comment on above: Performed By: #### F T4, TSH, VD25, B12, ERTPF, GLYHGB, ALB ####[address] [phone] [facility] Director: Yordan Lr MD Performed By: #### G LYHGB, ALB, ERTPF, B12, FT4, TSH, VD25 #### [facility] [address] [place], [place] [phone] Scalehouse Attendant: Yordan Lr MD Blood Bank BILL FOR SERVICES PERFORMED Normal [facility] Comment on above: Performed By: #### F T4, TSH, VD25, B12, ERTPF, GLYHGB, ALB ####[facility] [address] [place], [place] [phone] lab Director: Yordan Lr MD Performed By: #### G LYHGB, ALB, ERTPF, B12, FT4, TSH, VD25 #### [facility] [address] [place], [place] [phone] Scalehouse Attendant: Yordan Lr MD Type + Screenon 04-14-2022 Type + Screen Sample Expiration 04/17/2022,2359 Arm Band Number BE [id number] ABO/Rh(D) A POSITIVE Antibody Screen NEGATIVE [facility] Comment on above: Performed By: #### T YS #### [facility] [address] [place], [place] [phone] Scalehouse Attendant: Yordan Lr MD Performed By: #### T YS ####[facility] [place] [address] [phone] Lab Director: Yordan Lr MD Urinalysis with Reflex to Cu ltureon 04-14-2022 Bilirubin Urine Negative NEGATIVE [facility] Color, UA Yellow Yellow [facility] Glucose, Ur Negative NEGATIVE [facility] Interpretation and review of laboratory results Abnormal [facility] Ketones Ql (U) TRACE Abnormal NEGATIVE [facility] Leukocyte esterase Test strip Ql (U) Negative NEGATIVE [facility] Nitrite, Urine Negative NEGATIVE [facility] pH, UA 6.5 5.0 - 8.0 [facility] Protein, UA Negative NEGATIVE [facility] Specific Price, UA 1.047 High 1.005 - 1.030 [facility] Turbidity UA Clear Clear [facility] Urinalysis Comments Microscopic exam not performed based on chemical results unless requested in original order. [facility] Urine Hgb Negative NEGATIVE [facility] Urobilinogen, Urine Normal Normal [facility] Vitamin B12on 04-14-2022 Cobalamin (Vitamin B12) [Mass/Vol] 721 pg/mL Normal 232-1245 [facility] Comment on above: Performed By: #### F T4, TSH, VD25, B12, ERTPF, GLYHGB, ALB ####[employer] [address] [place], [place] [id number] Lab Director: Yoradn Lr MD Performed By: #### G LYHGB, ALB, ERTPF, B12, FT4, TSH, VD25 #### [facility] [address] [place], [place] [phone] Scalehouse Attendant: Yordan Lr MD Cobalamin (Vitamin B12) [Mass/Vol] 721 pg/mL 232 - 1245 pg/mL [facility] Vitamin D 25 Hydroxyon 04-14 Vit D, 25-Hydroxy 33.6 ng/mL 29.9 - PIN F ng/mL [facility] Comment on above: Reference Range: Vitamin D status Range Deficiency <20 ng/mL Mild Deficiency 20-30 ng/mL Sufficiency 30-100 ng/mL Toxicity >100 ng/mL [facility] Vitamin D 25 OHon 04-14-2022 Vitamin D 25 OH 33.6 ng/mL Normal >29.9 [facility] Comment on above: Result Comment: Reference Range: Vitamin D status Range Deficiency <20 ng/mL Mild Deficiency 20-30 ng/mL Sufficiency 30-100 ng/mL Toxicity >100 ng/mL Performed By: #### F T4, TSH, VD25, B12, ERTPF, GLYHGB, ALB ####[employer] [address] [place], [place] [phone] Lab Director: Yordan Lr MD Performed By: #### G LYHGB, ALB, ERTPF, B12, FT4, TSH, VD25 ####[facility] [address] [place], [place] [id number] lab Director: Yordan Lr MD XR HAND [...] MANUEL KOCH Date: 2022-04-14 16:53 Normal [facility] PTH INTACTon 04-11-2022 PTH, Intact 37 pg/mL Normal 15-65 [facility] Comment on above: Performed By: #### P THINT #### [facility] [address] [place] [address] [address] Brii Humphries CBC AUTO DIFFon 04-09-2022 BASO # 0.0 103/ul Normal 0.0-0.1 [facility] Comment on above: Performed By: #### C BC ####[facility] [address] [place] [address]Dr. Brii Humphries Basophils/100 WBC (Bld) 0.6 % Normal 0.2-2.0 [facility] Comment on above: Performed By: #### C BC ####[facility] [address] [place] [phone]. Brii Humphries EO # 0.2 103/ul Normal 0.0-0.7 [facility] Comment on above: Performed By: #### C BC ####[facility] [address] [place] [address]Dr. Brii Humphries Eosinophils/100 WBC (Bld) 4.4 % Normal 0.9-7.0 [facility] Comment on above: Performed By: #### C BC ####[facility] [address] [place] [address]Dr. Brii Humphries Erythrocyte distribution width (RBC) [Ratio] 12.7 % Normal 11.0-15.0 [facility] Comment on above: Performed By: #### C BC ####[facility] [address] [place] [address]Dr. Brii Humphries Hematocrit (Bld) [Volume fraction] 40.5 % Normal 36.0-48.0 [facility] Comment on above: Performed By: #### C BC ####[facility] [address] [place], [place] [address]Dr. Brii Humphries Hemoglobin (Bld) [Mass/Vol] 13.0 g/dL Normal 12.0-16.0 [facility] Comment on above: Performed By: #### C BC ####[facility] [address] [place], [place] [address]Dr. Brii Humphries IG # 0.01 10e3/ul Normal 0.00-0.03 [facility] Comment on above: Performed By: #### C BC ####[facility] [address] [place], [place] [address]Dr. Brii Humphries IG % 0.2 % Normal 0.0-0.5 [facility] Comment on above: Performed By: #### C BC ####[facility] [address] [place], [place] [address]Dr. Brii Humphries LYMPH # 1.2 103/ul Normal 1.2-3.8 [facility] Comment on above: Performed By: #### C BC ####[facility] We[address] [place], [place] [address]Dr. Brii Humphries Lymphocytes/100 WBC (Bld) 24.3 % Normal 20.5-60.0 [facility] Comment on above: Performed By: #### C BC ####[facility] [address] [place], [place] [address]Dr. Brii Humphries MANUAL DIFF REQ NO Normal [facility] Comment on above: Performed By: #### C BC ####[facility] [address] [place] [id number]. Brii Humphries MCH (RBC) [Entitic mass] 28.7 pg Normal 26.7-34.0 [facility] Comment on above: Performed By: #### C BC ####[facility] [address]rxbr[address] [place] [address]Dr. Brii Humphries MCHC (RBC) [Mass/Vol] 32.1 g/dL Normal 29.9-35.2 [facility] Comment on above: Performed By: #### C BC ####[facility] [address] [place], [place] [address]Dr. Brii Humphries MCV (RBC) [Entitic vol] 89.4 fL Normal 81.0-99.0 [facility] Comment on above: Performed By: #### C BC ####[facility] Sayzeout[address] [place], [place] [address]Dr. Brii Humphries MONO # 0.4 103/ul Normal 0.3-0.8 [facility] Comment on above: Performed By: #### C BC ####[facility] Kxaz[address]uv[address] [place], [place] [address]Dr. Brii Yandel Monocytes/100 WBC (Bld) 7.8 % Normal 1.7-12.0 [facility] Comment on above: Performed By: #### C BC ####[facility] Ojue[address] [place], [place] [address]Dr. Brii Humphries NEUT # 3.1 103/ul Normal 1.4-6.5 [facility] Comment on above: Performed By: #### C BC ####[facility] [address] [place], [place] [address]Dr. Brii Yandel Neutrophils/100 WBC (Bld) 62.7 % Normal 43.0-75.0 [facility] Comment on above: Performed By: #### C BC ####[facility] Dsxxucvt[address] [place], [place] [address]Dr. Brii Yandel Platelet mean volume (Bld) [Entitic vol] 10.1 fL Normal 9.5-13.5 [facility] Comment on above: Performed By: #### C BC ####[facility] [address] [place] [address]Dr. Brii Humphries PLT 199 103/ul Normal 150-450 [facility] Comment on above: Performed By: #### C BC ####[facility] [address] [place] [address]Dr. Brii Humphries RBC 4.53 106/ul Normal 4.20-5.40 [facility] Comment on above: Performed By: #### C BC ####[facility] [address] [place] [address]Dr. Brii Humphries WBC 5.0 103/ul Normal 4.0-11.0 [facility] Comment on above: Performed By: #### C BC ####[facility] Tr[address]ub[address] [place], [place] [address]Dr. Brii Humphries PROF CHEM 8 (BAS METB)on Anion gap [Moles/Vol] 9.9 mmol/L Normal [facility] Comment on above: Performed By: #### T SH, BMP ####[facility] [address] [place], [place] [address]Dr. Brii Humphries Calcium [Mass/Vol] 10.3 mg/dL Critically high 8.5-10.1 [facility] Comment on above: Performed By: #### T SH, BMP ####[facility] Al[address] [place], [place] [address]Dr. Brii Humphries Chloride [Moles/Vol] 105 mmol/L Normal 98-107 [facility] Comment on above: Performed By: #### T SH, BMP ####[facility] [address]ib[address]bz[address] [place], [place] [address]Dr. Brii Humphries CO2 [Moles/Vol] 31.8 mmol/L Normal 21.0-32.0 [facility] Comment on above: Performed By: #### T SH, BMP ####[facility] Pu[address] [place], [place] [address]Dr. Brii Humphries Creatinine [Mass/Vol] 0.80 mg/dL Normal 0.55-1.02 [facility] Comment on above: Performed By: #### T SH, BMP ####[facility] [address] [place] [address]Dr. Brii Humphries EGFR-AF IVORIAN >60 Normal >=60 [facility] Comment on above: Performed By: #### T SH, BMP ####[facility] [address] [place] [address]Dr. Brii Humphries EGFR-NON AF IVORIAN >60 Normal >=60 [facility] Comment on above: Performed By: #### T SH, BMP ####[facility] [address] [place] [address]Dr. Brii Humphries Glucose [Mass/Vol] 109 mg/dL Critically high 74-106 [facility] Comment on above: Performed By: #### T SH, BMP ####[facility] [address] [place] [address]Dr. Brii Humphries Potassium [Moles/Vol] 4.7 mmol/L Normal 3.5-5.1 [facility] Comment on above: Performed By: #### T SH, BMP ####[facility] [address] [place] [address]Dr. Brii Humphries Sodium [Moles/Vol] 142 mmol/L Normal 136-145 [facility] Comment on above: Performed By: #### T SH, BMP ####[facility] [address]ix[address] [place] [address]Dr. Brii Humphries Urea nitrogen [Mass/Vol] 22.0 mg/dL Critically high 7.0-18.0 [facility] Comment on above: Performed By: #### T SH, BMP ####[facility] [address] [place] [address]Dr. Brii Humphries Urea nitrogen/Creatinine [Mass ratio] 27.5 mg/mg Normal [facility] Comment on above: Performed By: #### T SH, BMP ####[facility] [address] [place] [address]Dr. Brii Humphries TSHon 04-09-2022 TSH 2.719 uIU/mL Normal 0.358-3.740 [facility] Comment on above: Performed By: #### T , [facility] ####[facility] [address] [place], [place] [address]PhChi Brii Humphries Willian 11-26-2021 CNPN Telephone (INTMLN) AYANA ALVES ([id number]) 1940 F Date Time Provider Department 11/26/21 NOPCP (HISTORICAL) INTMLN During your visit today, we [...] 81 mg by mouth once daily. - ogcurus-vqdjpagxf-hs tamin D3 500 mg(1,250mg) -200 unit per [...] to chronic blood los*01/13/2020 Encounter Status:Closed by HAVEN GR on 11/27/21 Normal [facility] VIT D 1 25 DIHYDROXYon 10-04 Calcitriol(1,25 di-OH Vit D) 91.6 pg/mL Critically high 19.9-79.3 [facility] Comment on above: Performed By: #### V GBI961 ####[facility] R[address] [place], [place] [address]GpChi Humphries US URI DOP LEG LTon 10-03-19 [...] left leg *Exam performed in accordance with [facility] practice guidelines- Peripheral venous ultrasound, September 02, 2009. Electronically authenticated by: MANUEL HAYWOOD Date: 2021-10-02 16:46 Normal [facility] FT3on 03-16-2020 FT3 4.04 pg/mL Normal 2.45-5.93 [facility] Comment on above: Performed By: #### 4 500, 4510, 4520 #### [facility] Unless Otherwise Noted [address] [address] / [facility] #4724/CLIA # [id number] FT4on 03-16-2020 Free T4 [Mass/Vol] 0.97 ng/dL Normal 0.78-2.44 [facility] Comment on above: Performed By: #### 4 500, 4510, 4520 #### [facility] Unless Otherwise Noted [address] [address] / [facility] #4724/CLIA # [id number] TSHon 03-16-2020 TSH Qn 1.36 uIU/ml Normal 0.47-4.68 [facility] Comment on above: Performed By: #### 4 500, 4510, 4520 #### [facility] Unless Otherwise Noted [address] [address] / [facility] #4724/CLIA # [id number] Vital Signs Date Time Vital Sign Value Performing Clinician Facility 07-10-2023 13:05-0500 Body height 157.5 cm Werner Nolasco DPM Work Phone: [facility] 07-10-2023 13:05-0500 Body mass index (BMI) [Ratio] 22.13 kg/m2 Werner Nolasco DPM Work Phone: [facility] 07-10-2023 13:05-0500 Body weight 54.88 kg Werner Nolasco [facility] Work Phone: [facility] 06-30-2023 09:30-0500 Body height 152.4 cm Jessica Maxwell Other [facility] Other 06-30-2023 09:30-0500 Body mass index (BMI) [Ratio] 24.02 kg/m2 Jessica Maxwell Other [facility] Other 06-30-2023 09:30-0500 Body weight 55.79 kg Jessica Maxwell Other [facility] Other 06-30-2023 09:30-0500 Diastolic blood pressure 77 mm[Hg] Jessica Maxwell Other [facility] Other 06-30-2023 09:30-0500 SaO2% (BldA) [Mass fraction] 97 % Jessica Maxwell Other [facility] Other 06-30-2023 09:30-0500 Systolic blood pressure 134 mm[Hg] Jessica Maxwell Other [facility] Other 06-23-2023 13:30-0500 Body height 152.4 cm Jessica Maxwell Other [facility] Other 06-23-2023 13:30-0500 Body mass index (BMI) [Ratio] 24.02 kg/m2 Jessica Maxwell Other [facility] Other 06-23-2023 13:30-0500 Body weight 55.79 kg Jessica Maxwell Other [facility] Other 06-23-2023 13:30-0500 Diastolic blood pressure 76 mm[Hg] Jessica Maxwell Other [facility] Other 06-23-2023 13:30-0500 SaO2% (BldA) [Mass fraction] 100 % Jessica Maxwell Other [facility] Other 06-23-2023 13:30-0500 Systolic blood pressure 116 mm[Hg] Jessica Maxwell Other [facility] Other 02-24-2023 13:45-0400 Body height 152.4 cm Jessica Maxwell Other [facility] Other 02-24-2023 13:45-0400 Body mass index (BMI) [Ratio] 22.85 kg/m2 Jessica Maxwell Other [facility] Other 02-24-2023 13:45-0400 Body weight 53.07 kg Jessica Maxwell Other [facility] Other 02-24-2023 13:45-0400 Diastolic blood pressure 80 mm[Hg] Jessica Maxwell Other [facility] Other 02-24-2023 13:45-0400 Systolic blood pressure 121 mm[Hg] Jessica Maxwell Other [facility] Other 08-21-2022 15:00-0400 Body height 152.4 cm Jeb Salas Other [facility] Other 08-21-2022 15:00-0400 Body mass index (BMI) [Ratio] 22.85 kg/m2 Jeb Salas Other [facility] Other 08-21-2022 15:00-0400 Body weight 53.07 kg Jeb Salas Other [facility] Other 04-15-2022 12:00-0500 Body temperature 98.2 [degF] Edin Elder MD Work Phone: [facility] [employer] 04-15-2022 12:00-0500 Diastolic blood pressure 74 mm[Hg] Edin Elder MD Work Phone: [facility] 04-15-2022 12:00-0500 Heart rate 61 /min Edin Elder MD Work Phone: [facility] 04-15-2022 12:00-0500 SaO2% (BldA) [Mass fraction] 99 % Edin Elder MD Work Phone: [employer] 04-15-2022 12:00-0500 Systolic blood pressure 133 mm[Hg] Edin Elder MD Work Phone: [facility] 04-15-2022 04:15-0500 Respiratory rate 12 /min Edin Elder MD Work Phone: [facility] 04-14-2022 23:30-0500 Body height 154.9 cm Edin Elder MD Work Phone: [facility] 04-14-2022 23:30-0500 Body mass index (BMI) [Ratio] 21.66 kg/m2 Edin Elder MD Work Phone: [facility] 04-14-2022 23:30-0500 Body weight 52 kg Edin Elder MD Work Phone: [facility] Encounters Encounter Date Encounter Type Care Provider Facility Start: 07-10-2023 End: 07-10-2023 ambulatory WERNER NOLASCO Not Available Start: 07-10-2023 Bamboo flowsheet Werner Salazar er DPM Work Phone: [facility] Start: 07-10-2023 Bamboo flowsheet Werner Salazar er DPM Work Phone: [facility] Start: 07-10-2023 End: 07-10-2023 Office outpatient visit 15 minutes Werner Nolasco DPM Work Phone: [facility] Comment on above: Dermatophytosis of n ail (Primary Dx); Dystrophic nail; Pain around toenail Start: 06-30-2023 End: 06-30-2023 ambulatory Jessica Maxwell Other [facility] Other Start: 06-30-2023 Office outpatient vi sit 15 minutes Jessica Maxwell [facility] Start: 06-27-2023 End: 06-27-2023 ambulatory Jessica Maxewll Other [facility] Other Start: 06-27-2023 Telephone encounter Jessica Maxwell [facility] Start: 06-23-2023 End: 06-23-2023 ambulatory Jessica Maxwell Other [facility] Other Start: 06-23-2023 Office outpatient vi sit 15 minutes Jessica Maxwell [facility] Start: 06-04-2023 End: 06-04-2023 ambulatory Jeb Salas Other [facility] Other Start: 06-04-2023 Telephone encounter Jeb Salas [facility] Start: 05-13-2023 End: 05-13-2023 ambulatory Jessica Maxwell Other [facility] Other Start: 05-13-2023 Telephone encounter Jessica Alissa [facility] Start: 05-08-2023 End: 05-08-2023 ambulatory Jessica Alissa Other [facility] Other Start: 05-08-2023 Telephone encounter Jessica Alissa [facility] Start: 04-02-2023 End: 04-02-2023 ambulatory Jessica Maxwell Other [facility] Other Start: 04-02-2023 Telephone encounter Jessica Maxwell [facility] Start: 03-26-2023 End: 03-26-2023 ambulatory Jessica Maxwell Other [facility] Other Start: 03-26-2023 Telephone encounter Jessica Maxwell [facility] Start: 03-11-2023 End: 03-11-2023 ambulatory Jessica Maxwell Other [facility] Other Start: 03-11-2023 Telephone encounter Jessica Maxwell [facility] Start: 02-24-2023 End: 02-24-2023 ambulatory Jessica Maxwell Other [facility] Other Start: 02-24-2023 Office outpatient vi sit 15 minutes Jessica Maxwell [facility] Start: 01-22-2023 End: 01-22-2023 ambulatory Jessica Maxwell Other [facility] Other Start: 01-22-2023 Telephone encounter Jessica Maxwell [facility] Start: 12-20-2022 End: 12-20-2022 ambulatory Jessica Maxwell Other [facility] Other Start: 12-20-2022 Telephone encounter Jessica Maxwell [facility] Start: 09-24-2022 ambulatory JEB SALAS Facility: Start: 09-09-2022 End: 09-09-2022 ambulatory Jeb Salas Other [facility] Other Start: 09-09-2022 Office outpatient vi sit 15 minutes Jeb Salas [facility] Start: 08-21-2022 End: 08-21-2022 ambulatory Jeb Salas Facility:[facility] Start: 08-21-2022 Office outpatient vi sit 15 minutes Jeb Salas [facility] Start: 08-21-2022 End: 08-21-2022 ambulatory DO Jeb Salas Work Phone: [facility] Work Phone: Start: 08-21-2022 End: 08-21-2022 Patient encounter procedure DO Jeb Salas Work Phone: [facility] Start: 08-19-2022 End: 08-19-2022 ambulatory Jessica Maxwell Other [facility] Other Start: 08-19-2022 Telephone encounter Jessica Maxwell [facility] Start: 07-29-2022 End: 07-29-2022 ambulatory Jeb Salas Other [facility] Other Start: 07-29-2022 Telephone encounter Jeb Salas [facility] Start: 06-21-2022 End: 06-21-2022 ambulatory Jessica Maxwell Other [facility] Other Start: 06-21-2022 Telephone encounter Jessica Mxawell [facility] Start: 06-20-2022 End: 06-20-2022 ambulatory Jessica Maxwell Other [facility] Other Start: 06-20-2022 Telephone encounter Jessica Maxwell [facility] Start: 06-09-2022 End: 07-20-[address] JESSICA MAXWELL Facility:[facility] Start: 04-23-2022 End: 04-26-2022 ambulatory [facility] Start: 04-14-2022 End: 04-14-2022 ambulatory UNKNOWN PROVIDER Facility:[facility] Start: 04-14-2022 End: 04-15-2022 Evaluation and management of inpatient MITALI Feliciano [facility] Start: 04-14-2022 End: 04-15-2022 Evaluation and management of inpatient Edin Elder MD Work Phone: [facility] Car 2- Stepdown Comment on above: Subdural hematoma (P rimary Dx) Start: 04-14-2022 End: 04-14-2022 ambulatory SHRUTHI GALVAN . Facility:[facility] Start: 04-14-2022 Emergency department patient visit MITALI Feliciano MD [facility] Start: 04-09-2022 End: 04-10-[address] JESSICA MAXWELL Facility:[facility] Start: 04-05-2022 End: 06-08-[address] JESSICA MAXWELL Facility:[facility] Start: 04-03-2022 Adult health examination Ratna Maxwell Other [facility] Other Start: 04-03-2022 Gynecological examin ation normal Jessica Maxwell Other [facility] Other Start: 01-10-[address] JAYANT Catalan ty:[facility] Start: 11-26-2021 Telephone encounter [facility] (Historica l) [facility] Comment on above: colonoscopy question s Start: 10-05-2021 End: 10-05-2021 ambulatory Jeb Salas Other [facility] Other Start: 10-05-2021 Office outpatient vi sit 15 minutes Jeb Salas [facility] Start: 10-02-2021 End: 10-03-2021 [...] patient Jessica Maxwell Other Depression screening Jessica Maxwell Other Screening for malign ant neoplasm of breast Jessica Maxwell Other Viral screening Jessica Maxwell Other Plan of Treatment Date Care Activity Detail Author Start: 11-10-2023 End: 11-10-2023 Patient encounter procedure 11/10/2023 1:30 PM EDT Office Visit [facility] [address] [place] [address] Werner Nolasco, DPM [address] [place], [place] [address] [facility] Start: 07-10-2023 End: 07-10-2023 Patient encounter procedure 07/10/2023 1:15 PM EST Office Visit [facility] [address] [place] [address] Werner Nolasco, DPKeyla [address] [place] [address] Arrived [facility] Comment on above: Arrived Start: 05-03-2023 DIABETES SCREEN DIABETES SCREEN [facility] Start: 02-07-2023 Influenza vaccination Influenza Vacc ine (#1) [facility] Start: 04-24-2022 End: 04-24-2022 Patient encounter procedure 04/24/2022 Office Visit Neurosurgery Flower Preciado, BOX PERSON - GOVERNMENT AFFAIRS SPECIALIST [address] [facility] [address] [place] [address] [facility] Start: 02-07-2022 Influenza vaccination INFLUENZ A (Season Ended) [facility] Start: 01-07-2022 Influenza vaccination Flu vaccine (# 1) [facility] Start: 06-09-2021 ADVANCE DIRECTIVE DISCUSSION ADVANCE DIRECTIVE DISCUSSION [facility] Start: 02-08-2021 Adult depression screening assessment DEPRESSION SCREENING [facility] Start: 2006 BONE DENSITY BONE DENSITY [facility] Start: 2006 Pneumococcal 65+ yea rs Vaccine (1 - PCV) Pneumococcal 65+ years Vaccine (1 - PCV) [facility] Start: 2006 Pneumococcal Vaccine : 65+ Years (1 - PCV) Pneumococcal Vaccine: 65+ Years (1 - PCV) [facility] Start: 2006 PNEUMOCOCCAL: 65+ (1 - PCV) PNEUMOCOCCAL: 65+ (1 - PCV) [facility] Start: 1991 Shingles vaccine (1 of 2) Shingles vaccine (1 of 2) [facility] Start: 1991 SHINGRIX VACCINE (1 of 2) SHINGRIX VACCINE (1 of 2) [facility] Start: 02-23-1960 DTaP/Tdap/Td vaccine (1 - Tdap) DTaP/Tdap/Td vaccine (1 - Tdap) [facility] Start: 02-23-1960 Urine microalbumin profile DTAP,TDAP,TD (1 - Tdap) [facility] Start: 1953 Depression Screen Depression Screen [facility] Start: 1946 COVID-19 VACCINE (#1) COVID-19 VACCI NE (#1) [facility] Start: 1941 COVID-19 Vaccine (#1) COVID-19 Vacci ne (#1) [facility] End: 04-15-2022 EKG 12 Lead EKG 12 Lead ECG Routine One Time for 1 Occurrences starting 04/15/2022 until 04/15/2022 [employer]: Comment on above: One Time for 1 Occur rences starting 04/15/2022 until 04/15/2022 Oxygen therapy [[facility] Data Set] Initiate Oxygen Therapy Protocol Respiratory Care Routine As Needed until discontinued starting 04/14/2022 [employer] [facility]: Comment on above: As Needed until disc ontinued starting 04/14/2022 End: 04-14-2022 Speech and language therapy regime Speech language pathology evaluation ADVERTISING REP Routine One Time for 1 Occurrences starting 04/14/2022 until 04/14/2022 [employer] Phone: Comment on above: One Time for 1 Occur rences starting 04/14/2022 until 04/14/2022 End: 05-25-2022 Spirometry panel Incentive spirometry Respiratory Care Routine Every 1hr while awake for 41 Days starting 04/14/2022 until 05/25/2022 [employer] Phone: Comment on above: Every 1hr while awak e for 41 Days starting 04/14/2022 until 05/25/2022 End: 04-14-2022 TRAUMA PANEL TRAUMA PANEL Lab STAT One Time for 1 Occurrences starting 04/14/2022 until 04/14/2022 [employer] Phone: Comment on above: One Time for 1 Occur rences starting 04/14/2022 until 04/14/2022 Immunizations Immunization Date Immunization Notes Care Provider Liz fernandez 03-16-2013 tetanus and diphther ia toxoids, adsorbed, preservative free, for adult use (5 Lf of tetanus toxoid and 2 Lf of diphtheria toxoid) Jessica Maxwell Other [employer] Other Payers Date Payer Category Payer Self-pay [id number] 2021 Unknown [employer] M [employer] [id number] 2021-Present [address] [place] [address] [id number] 2019 Unknown MMO MMO MEDICARE SUPPLEMENT [id number] 2019-Present [phone] [address] [place] [address] Indemnity [id number] 2009 Medicare MEDICARE MEDICAR E PART B [id number] 2009-[place] [address] Medicare [id number] 2006 Medicare MEDICARE MEDICAR E A AND B [id number] 2006-Present [phone] [place] [address] Medicare [id number] 1959 Medicare [id number] 1959 Unknown [id number] 1941 Unknown [id number] 1941 Unknown [id number] 1941 Unknown [id number] 1941 Unknown [id number] 1941 Unknown [id number] 1941 Unknown [id number] 1941 Unknown [id number] [id number] 1941 Unknown [id number] [id number] 1941 Unknown [id number] [id number] 1941 Unknown [id number] [id number] Unknown [id number] Social History Date Type Detail Facility Start: 04-18-2014 End: 03-27-2023 Tobacco smoking status NHIS Ex-smoker [facility] End: 06-09-1967 History of tobacco use Current smoker [facility] Start: 04-18-2014 End: 03-27-2023 Tobacco use and exposure Smokeless tobacco non-user [facility] Start: 05-03-2020 End: 07-10-2023 Alcohol intake Current drinker of alcohol (finding) [facility] Start: 05-03-2020 End: 07-10-2023 Alcohol intake [facility] Start: 01-12-2020 History SDOH Alcohol Frequency 2 [facility] Start: 01-12-2020 History SDOH Alcohol Std Drinks 1 [facility] Start: 1940 Sex Assigned At Female [facility] Start: 03-27-2023 End: 07-10-2023 Sex [address] [facility] [employer] Other End: 06-09-1967 History of tobacco use Cigarette Smoker [employer]: Start: 04-15-2022 Tobacco Comment Smoker when sh brody was 17 years old to 23 years old [employer] [facility]: Start: 04-15-2022 Alcohol Comment one glass of w ine every 4 months - social [employer] Phone: Start: 1940 Sex Assigned At Not on file B ON [employer] Phone: Start: 04-05-2022 End: 04-15-2022 Exposure to SARS-CoV-2 (event) Not sure [employer] Phone: Start: 03-26-2023 Alcohol Comment 1-2 drinks les s than monthly in the past year, Caffeine intake: 1-2 cups per day, coffee [facility] Clinical Notes 10-05-2021 to 07-10-2023 Werner Nolasco, KATTY - 07/10/2023 1:15 PM ESTPatient Instructions Note Date & Type Note Facility 07-10-2023 History of Presen t illness Narrative Images from the original note were not included. Subjective Patient ID: Ayana Alves is a 83 y.o. female who presents for Fungus (Established pt presents today for lamisil fuv. Pt states nail appearance has improved. Using vinegar topically./). HPI Follow-up assessment: Onychodystrophy/mycosis primarily involving the great toes. Patient recently completed an initial 90 day course of oral terbinafine therapy, noting no adverse effects. Reports good compliance with topical care measures. She does note interval improvement, particularly with regard to clarity of the nail plate. The condition is again mildly symptomatic with shoe gear over the past several weeks. Denies bleeding or drainage. Risk factors: Plavix therapy. Toenail deformity. Digital and/or shoe trauma and related complications. Medications Current Outpatient Medications: clonazePAM (KlonoPIN) 0.5 MG tablet, Take 0.5 mg by mouth in the morning and 0.5 mg before bedtime., Disp: , Rfl: clopidogrel (Plavix) 75 MG tablet, Take 75 mg by mouth in the morning., Disp: , Rfl: ipratropium (Atrovent) 0.03 % nasal spray, Administer 2 sprays into each nostril every 12 (twelve) hours., Disp: , Rfl: levothyroxine (Synthroid, Levoxyl) 50 MCG tablet, Take by mouth Daily before meals., Disp: , Rfl: liothyronine (Cytomel) 5 MCG tablet, Take 5 mcg by mouth in the morning., Disp: , Rfl: metoprolol tartrate (Lopressor) 25 MG tablet, Take 25 mg by mouth in the morning and 25 mg before bedtime., Disp: , Rfl: saccharomyces boulardii (Florastor) 250 MG capsule, Take 250 mg by mouth in the morning and 250 mg before bedtime., Disp: , Rfl: spironolactone (Aldactone) 25 MG tablet, Take 25 mg by mouth in the morning., Disp: , Rfl: Allergies Celecoxib and Sulfa antibiotics Past Surgical History Past Surgical History: Procedure Laterality Date BREAST CYST EXCISION Left BUNIONECTOMY CARDIAC SURGERY 10/2018 open heart surgery for valve repair CATARACT EXTRACTION COLONOSCOPY [facility], 2012, CT ANGIOGRAM ABDOMEN PELVIS 10/23/2018 CT ANGIOGRAM ABDOMEN PELVIS 10/23/2018 CT ANGIOGRAM HEART CORONARY 10/23/2018 CT ANGIOGRAM TAVR 10/23/2018 CT GUIDED TRANSVAGINAL TRANSRECTAL FLUID DRAIN 01/08/2019 CT GUIDED TRANSVAGINAL TRANSRECTAL FLUID DRAIN 01/08/2019 MASS EXCISION wrist OTHER SURGICAL HISTORY PLIF THYROIDECTOMY, PARTIAL Family History Family History Problem Relation Name Age of Onset Stroke Mother Hypertension Mother Mental illness Mother Hypertension Father Heart disease Father Cancer Father Objective General assessment: Alert and oriented. Pleasant disposition. Vascular: DP 2/4 bilateral. PT 2/4 bilateral. CFT brisk all digits. Unremarkable for ankle edema. Neurologic: tactile and light touch sensation intact. Dermatologic: intact. Skin turgor is good. Web space areas are clean, dry, non-inflamed. Unremarkable for eczema or dermatitis. Right great toe: interval proximal nail plate clearing along the lateral nail plate, with distal displacement of the mycotic toenails segment. There remains marginal keratotic and mycotic debris; without drainage. Left great toe: fairly stable 10-15% DSO deformity; distinct Beau's line at 70% nail growth. 5th digits bilateral: Toenail dystrophy and clinical mycosis Orthopedic: Range of motion: Demonstrates functional ankle, subtalar and first MTP joint range of motion. Deformity: Mild HAV deformity bilateral; flexible and reducible. Radiology: Assessment/Plan Symptomatic onychodystrophy/mycosis right great toe. Interval clinical improvement following 90 day course of oral terbinafine therapy; completed June 2023 without adverse effects Plan: Review of clinical findings, differential diagnosis of toenail condition, etiology and contributing/aggravating factors, treatment strategy, rationale and objectives. Review of overall efficacy, anticipated time frame for effective nail plate clearing, potential for recalcitrance and/or relapse and the need for further oral therapy. Adjunctive topical care measures: Use of vinegar and/or Listerine as directed. Hygiene and skin care measures discussed Procedure: Toenail debridement: Aseptic technique: Hand and power instrumentation: Onychodebridement in length and thickness, with curettage of any cryptotic margins, all periungual debris; providing effective symptom and pressure relief; reducing shoe and digital trauma; reducing fungal load This note was created with the assistance of a speech recognition program. While intending to generate a timely document that accurately reflects the content of the visit, no guarantee can be provided that every grammatical or spelling mistake has been or will be identified or corrected. Thank you for your understanding. Werner Nolasco DPM documented in this encounter [facility] 07-10-2023 Instructions Werner Nolasco DPM - 07/10/2023 1:15 PM EST Topical care measures as noted documented in this encounter [facility] 06-30-2023 Evaluation note Encounter Date Diagnosis Assessment Notes Jun, Other chest pain (ICD-10 - R07.89) Pt agrees to stress test and cxr. Recommened she move up her appt w cardiology. If pain increases or becomes more severe go to ER or call [phone] [facility] Other 01-15-2024 Evaluation note* Encounter Date Diagnosis Assessment Notes Treatment Notes Treatment Clinical Notes Jun, Screening mammogram, encounter for (ICD-10 - Z12.31) Jun, Rhomboid muscle pain (ICD-10 - M79.18) Pt given HO on home stretches for this area. Discussed massotherapy and PT as well. [facility] Other 10-03-2023 Evaluation note* Encounter Date Diagnosis Assessment Notes Treatment Notes Treatment Clinical Notes Mar, Hypercalcemia (ICD-1 0 - E83.52) [facility] Other 09-18-2023 Evaluation note* Encounter Date Diagnosis Assessment Notes Treatment Notes Treatment Clinical Notes Feb, Chronic fatigue (ICD-10 - R53.82) Discussed differential. Discussed stress and 's health issues. Assess for anemia and metabolic abnormalities. Feb, Acquired hypothyroidism (ICD-10 - E03.9) Overdue for labs - chronic problem Feb, Bruising (ICD-10 - T14.8XXA) Discussed differential. Will obtain recent labs from [place]. [facility] Other 07-14-2023 Evaluation note* Encounter Date Diagnosis Assessment Notes Treatment Notes Treatment Clinical Notes Dec, Vitamin D deficiency (ICD-10 - E55.9) [facility] Other 04-03-2023 Evaluation note* Encounter Date Diagnosis [...] left hip, subsequent encounter (ICD-10 - S76.012D) [facility] Other 03-15-2023 Evaluation note* Encounter Date Diagnosis [...] as documented in the electronic medical record. [facility] Other 02-20-2023 Evaluation note* Encounter Date Diagnosis Assessment Notes Treatment Notes Treatment Clinical Notes Jul, Chronic fatigue (ICD-10 - R53.82) Jul, Essential (primary) hypertension (ICD-10 - I10) [facility] Other 11-07-2022 History of Present illness Narrative* Mabel Guerrero OT - 04/15/2022 4:27 PM EST Occupational Therapy Facility/Department: [facility] CAR [facility]- [facility] Occupational Therapy Initial Assessment [...] Ambulation Assistance: Independent Transfer Assistance: Independent Active Process Control Supervisor: Yes Mode of Transportation: SUV, Truck Occupation: [...] Hand Dominance Hand Dominance: Right AM-PAC Score [facility] Inpatient Daily Activity Raw Score: 24 (04/15/221631) [...] 1:20 PM EST Speech Language Pathology Facility/Department: [facility] CAR [facility]- [facility] Initial Speech/Language/Cognitive Assessment NAME: Ayana [...] [facility] suffering mechanical fall from standing height while walking her dog. No LOC. Pt found to have small L parietal SDH on CT while at [facility]. CT face and c-spine were negative. Pt [...] recommended. Verbal education provided. Recommendations: Recommendations Requires ADVERTISING REP Intervention: No Patient Education: Yes Patient Education Response: Verbalizes understanding Plan: Individuals consulted Consulted and agree with results and recommendations: Patient Goals: Patient/family involved in developing goals and treatment plan: Yes Subjective: Social/Functional History Lives With: Spouse Type of Home: House Active Process Control Supervisor: Yes Mode of Transportation: Car Vision Vision: [...] 11:55 Minutes 13 Completed by: Rekha Carrillo Net Developer Consultant Clinician Cosigned By: Nargis Fernandez M.S.CCC/ADVERTISING REP * Mehreen Bradshaw, PT - 04/15/2022 11:55 AM EST Physical Therapy Facility/Department: [facility] CAR 2- [facility] Physical Therapy Initial Assessment Name: Ayana Alves : 1940 Date of Service: 04/15/2022 82 y/o trauma transfer from [facility], mechanical fall SH, on Plavix, outside hospital [...] ambulate 200' no device, steadily. She can move coordinator unilateral stance for at least 10 seconds. 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 She reports [facility] showed no broken bones. Objective: Patient Vitals for the past 8 hrs: BP Temp Temp src Pulse Resp SpO2 Height Weight 04/14/22 2345 -- -- -- 61 -- -- -- -- 04/14/220 135/70 -- Oral 62 16 96 % [...] 1 (1.549 m) 115 lb (52.2 kg) 04/14/221929 (!) 166/70 -- -- 67 16 100 [...] Keara Boone - 04/14/2022 7:54 PM EST [facility] CARE DEPARTMENT - [facility] Emergency/Trauma Note PATIENT NAME: Ayana Alves Shift date: 04/14/22 Shift day: Friday Shift # 2 Room # Name: Ayana Alves Age: 82 y.o. Gender: female Yarsani: [facility] of latter day: [facility] in [place] Trauma/Incident type: Adult Trauma Priority Admit Date & Time: 04/14/2022 6:56 PM TRAUMA NAME: Jerson ADVANCE DIRECTIVES IN CHART? No NAME OF DECISION MAKER: Bryan Alves, spouse or Kiya, daughter PATIENT/EVENT DESCRIPTION: Ayana Alves is a 82 y.o. female who arrived via [facility] as an Adult Trauma Priority; patientsustained injuries from a fall. Pt to be admitted to . SPIRITUAL [id number]: Network Announcer provided a ministry of presence and made space for sharing. Network Announcer learned that patient receives support and comfort from her family and her yossi. Patient shared she belongs to [employer] [facility] in [place] and has a large bible study group praying forher. Patient shared that her , Bryan, has early Alzheimer's and is home resting. Patient appeared to be calm and seemed to be coping well. Network Announcer connected patient's daughter, Kiya, with patient in ED16 (patient was originally in Trauma B), and extended hospitality. Patient and patient's daughter expressed gratitude for natural resources instructor presence. PATIENT BELONGINGS: With patient ANY BELONGINGS OF SIGNIFICANT VALUE NOTED: Not noted or handled by natural resources instructor REGISTRATION STAFF NOTIFIED? Yes WHAT IS YOUR SPIRITUAL CARE PLAN FOR THIS PATIENT?: Network Announcer support will continue to be available as needed. 04/14/221952 Encounter Summary Service Provided For: Patient;Family Referral/Consult From: Multi-disciplinary team Support System Children;Spouse;Baptist/yossi community Last Encounter 04/14/22 Complexity of Encounter Low Begin Time 1858 End Time 1957 Total Time Calculated 60 min Crisis Type Trauma Assessment/Intervention/Outcome Assessment Calm;Coping Intervention Active listening;Sustaining Presence/Ministry of presence Outcome Comfort;Expressed Gratitude Plan and Referrals Plan/Referrals Continue Support (comment) . Spiritual Care Department [facility] [phone] [facility] [employer] Work Phone: 1(507) 392-721811-07-2022 Hospital Discharge instructions* Discharge Instructions* Tiffanie Peck [...] the [facility] at [phone]. This center offers additional therapy, support groups, education and other resources at no cost. The center is located at [address] [place] [address]. You can also visit [email or web address] for more information. General questions or concerns may be called to the trauma nurse line at [phone] and please leave a message. Trauma is a life-threatening condition. Your doctor will want to closely monitor you. Be sure to goto all of your appointments. * Discharge Instr - Activity* Rosario Thomas RN - 04/15/2022 3:23 PM EST As tolerated. * Attachments The following attachments cannot be sent through Care Everywhere. * Acute Concussion (Arabic) * Head Injury: Closed: General Info (Arabic) documented [facility] [employer] Phone: [phone]) [phone] NoteThis is a Telehealth Appointment *This visit [...] a normal screening. Patient [facility] by PCP on 05/03/2020 due to anemia. Patient reports diarrhea. Previously follow with Dr Fermin Gamez. Retired and no longer following with [...] melena. 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 Review of Systems Constitutional: [...] 06/2016 Lab Results No qualifying data available. Charlene Brian PA-C Electronically Signed by (more content not included)...[facility]: Order Comment: [id number] Miscellaneous Notes* Telephone Encounter - Haven Gr RN - 11/26/2021 2:11 PM EDT -Pt Verified by Name and Date of -pt calling to ask if there is an age limit for colonoscopies. Pt PCP not with [facility]. -advised discuss with PCP and seek referral for ANNE eval. documented in [facility] encounterUniversity [facility] Evaluation note* Encounter Date Diagnosis Assessment Notes [...] in office today. Prior medical notes from [facility] ED and history have been reviewed. At [...] as documented in the electronic medical record. [facility] Other Evaluation note* Diagnosis Subdural hematoma- Primary Subdural hemorrhage Subdural hematoma Subdural hemorrhage documented in this encounter [facility] Work Phone: evaluation noteNo InformationNort [employer] Other Evaluation noteNo assessment information available [facility] Work Phone: Evaluation note* Diagnosis Dermatophytosis of nail- Primary Dystrophic nail Other specified disease of nail Pain around toenail documented in this [facility] N[facility] - Reported* Type Description Date Surgical History bones in feet shaved Surgical History pins left wrist Surgical History cage in back 2012 Surgical History open heart surgery 2020 Surgical History pacemaker 2019 [facility] Other History general Narrative - Reported* Type Description Date Surgical History bones in feet shaved Surgical History pins left wrist Surgical History cage in back 2011 Surgical History open heart surgery 2020 Surgical History pacemaker 2020 Hospitalization History fall- [facility] d/t c oncussion 04/13/2022 [facility] Other History general Narrative - Reported* Type [...] fall- [facility] d/t c oncussion 04/13/2022 [facility] Other Summary Purpose Family History No Family History Records FoundNo Family History Records FoundNo Family History Records FoundNo Family History Records FoundNo Family History Records FoundNo Family History Records FoundNo Family History Records FoundNo Family History Records FoundNo Family History Records FoundNo Family History Records Found Advance Directives No Advanced Directives Records FoundLatest Code Status on File Code Status Date Activated Date Inactivated Comments Full Code 04/14/2022 8:43 PM Healthcare Agents on File Name Relationship Healthcare Agent Relationshi p Communication Kiya Bill Child Primary Decision Maker Advance Directive Response Recorded Date/ Time Advance Directives No February 12:26pm Additional Source Comments INFORMATION SOURCE (unrecogn ized section and content) DATE CREATED AUTHOR 03/16/2020 [facility] DATE CREATED AUTHOR AUTHOR'S ORGANIZ ATION 11/28/2021 [facility] DATE CREATED AUTHOR AUTHOR'S ORGANIZ ATION 01/15/2022 [facility] DATE CREATED AUTHOR AUTHOR'S ORGANIZ ATION 04/14/2022 [facility] DATE CREATED AUTHOR AUTHOR'S ORGANIZ ATION 04/16/2022 [facility] DATE CREATED AUTHOR AUTHOR'S ORGANIZ ATION 04/20/2022 [facility] DATE CREATED AUTHOR AUTHOR'S ORGANIZ ATION 04/26/2022 [facility] DATE CREATED AUTHOR AUTHOR'S ORGANIZ ATION 08/26/2022 [facility] DATE CREATED AUTHOR AUTHOR'S ORGANIZ ATION 09/26/2022 [facility] DATE CREATED AUTHOR AUTHOR'S ORGANIZ ATION 07/12/2023 [facility] EPIC Source Comments (unrecognize d section and content) In the event this informatio n is protected by the Federal Confidentiality of Alcohol and Drug Abuse Patient Records regulations: The Federal rules restrict any use of the information to criminally investigate or prosecute any alcohol or drug abuse patient.[facility] Reason for Visit (unrecogniz ed section and content) Reason Comments colonoscopy questions Reason Comments Fall No LOC, tripped walk ing dog, on Plavix, SDH no midline shift per report. Neuro intact Reason Comments Fungus Established pt prese nts today for lamisil fuv. Pt states nail appearance has improved. Using vinegar topically. Care Teams (unrecognized sec tion and content) [facility] Nurse Relationship Specialty Start Date End Date Jessica Maxwell MD [address] [place] [address] PCP - General Family Practice 03/30/14 Jayant Ambrocio [address] [place] [address] Cardiology 11/18/19 Ccu Nurse Relationship Specialty Start Date End Date Jessica Maxwell MD [address] [place] [address] PCP - General Family Medicine 04/14/22 Team Status: Inactive Member Role Status Dates Jeb Salas DO Attending Provider Active [facility]cu Nurse Relationship Specialty Start Date End Date David Arellano DO [address] [place] [address] PCP - General Family Medicine 03/27/23 Ccu Nurse Relationship Specialty Start Date End Date Eileen David SharmaDO [address] [place] [address] PCP - General Family Medicine 03/27/23 Ordered Prescriptions (unrec ognized section and content) [...] Provider: Aide Fong, DILAN)1541 (Given - Provider: Eliane Degroot, DILAN)2200 (Due) levothyroxine (SYNTHROID) tablet 50 mcg 50 mcg, Oral, DAILY, First dose on Fri04/15/22 at 0700, Until Discontinued, Tube feeding (TF) interaction, obtain physician order to manage, recommend holding TF for 30 minutes before and after dose. 0610 (Given - Provid er: Aide Fong, DILAN) liothyronine (CYTOMEL) tablet 5 mcg 5 mcg, Oral, DAILY, First dose on Fri04/15/22 at 0900, Until Discontinued 1103 (Given - Provid er: Elaine Degroot, DILAN) metoprolol tartrate (LOPRESSOR) tablet 25 mg 25 mg, Oral, 2 TIMES DAILY, First dose on Fri04/16/22 at 0900, Until Discontinued polyethylene glycol (GLYCOLAX) packet 17 g 17 g, Oral, DAILY, First dose on 04/14/22 at 2045, Until Discontinued, Stir and dissolve one packet of powder (17 g) in any 4 to 8 ounces of beverage (cold, hot or room temperature) then drink 0031 (Not Given - Provider: Aide Fong RN - Reason: Patient/family refused - Comment: Bowel movement yesterday)0948 (Not Given - Provider: Elaine Degroot RN - Reason: Patient/family refused) sodium chloride flush 0.9 % injection 5-40 mL 5-40 mL, IntraVENous, EVERY 12 HOURS SCHEDULED (2 times per day), First dose on 04/14/22 at 2100, Until Discontinued, For Line Patency: [...] 2111 (Given - Provider: August Mcarthur RN) 1103 (Given - Provider: Elaine Degroot RN)2100 (Due) spironolactone (ALDACTONE) tablet 25 mg 25 mg, Oral, DAILY, First dose on 04/15/22 at 0900, Until Discontinued 1541 (Given - [...] frequent line interruptions/ long duration, Starting on Fri04/14/22 at 2033, For piggyback infusion, administer at [...] IMG ONCE PRN, 1 dose, Starting on Fri04/14/22 at 1936, Until Fri04/14/22 at 1936, Other 1936 (Given - Provider: Asai Gonzalez - Comment: [id number] 09/2024) ondansetron (ZOFRAN) injection 4 mg(Linked Group 1) 4 mg, IntraVENous, EVERY 6 HOURS PRN, Starting on Fri04/14/22 at 2033, Until Discontinued, Nausea, Vomiting, Administer if oral route cannot be used. ondansetron (ZOFRAN-ODT) disintegrating tablet 4 mg(Linked Group 1) 4 mg, Oral, EVERY 8 HOURS PRN, Starting on Fri04/14/22 at 2033, Until Discontinued, Nausea, Vomiting senna (SENOKOT) tablet 8.6 mg 8.6 mg (1 tablet), Oral, DAILY PRN, Starting on Fri04/14/22 at 2041, Until Discontinued, Constipation, First line therapy for constipation sodium chloride flush 0.9 % injection 5-40 mL 5-40 mL, IntraVENous, PRN, Starting on Fri04/14/22 at 2033, Until Discontinued, Line Care, After [...] BE BASED ON THE PRIMARY CLINICAL RECORDS. [employer]. provides no warranty or guarantee of the accuracy or completeness of information in this document.
== END 2023-07-14 12:45 | disposition home or self-care (01) ==
LOC: US 12:44
PROVIDERS: PCP Family Medicine; Visit Provider Family Medicine
DX: R92.8 Other abnormal and inconclusive findings on diagnostic imaging of breast (principal)
CPT/HCPCS: 76641

== ENCOUNTER 2023-11-26 12:49 | Outpatient (OUT) | payer MEDICARE, OTHER, SELFPAY ==
--- NOTE | 2023-11-26 13:00 | RT_ITS ---
[facility] Test Date: 2023-11-26 Pat Name: RAMEZ VELA Department: Room: - Gender: Female Manager Social Work: Maria A Zamora RRT : 1940 Requested By: [id number] Order Number: [id number] Reading MD: Enoc Newell Interpretive Statements Pulmonary function testing was completed according to ATS criteria. Findings were considered accurate and reproducible with exception of not meeting end of test ATS standard. No bronchodilator was administered due to normal spirometric values. Spirometry: -FEV1/FVC: Low normal @ 73% -FEV1: Normal @ 103% -FVC: Normal @ 104% Lung volumes by plethysmography: -RV: Increased @ 126% -RV: Normal @ 115% Diffusion capacity: -DLCO: Mild-moderate reduction @ 63% when corrected for Hb 12g/dL Impressions: -Spirometry trends towards a mild obstruction pattern. An elevated RV suggests air trapping. There is a mild-moderately reduced diffusion capacity. 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 Clinical correlation required. Electronically Signed On 12-02-2023 7:26:25 EDT by Enoc Newell
[2023-11-26 13:20] LABS: Basophils Percent Auto 0.4 % (0.2-2.0); Eosinophils Absolute Auto 0.2 10^3/uL (0.0-0.7); Hematocrit 36.2 % (36.0-48.0); Lymphocytes Percent Auto 20.5 % (20.5-60.0); Mean Corpuscular HGB Conc 33.1 g/dL (29.9-35.2); Mean Corpuscular Hemoglobin 29.8 pg (26.7-34.0); Mean Corpuscular Volume 89.8 fL (81.0-99.0); Mean Platelet Volume 9.7 fL (9.5-13.5); Monocytes Absolute Auto 0.4 10^3/uL (0.3-0.8); Monocytes Percent Auto 8.4 % (1.7-12.0); Neutrophils Absolute Auto 3.4 10^3/uL (1.4-6.5); Neutrophils Percent Auto 66.7 % (43.0-75.0); Platelet Count 173 10^3/uL (150-450); Red Blood Count 4.03 10^6/uL (4.20-5.40)
[2023-11-26 16:09] LABS: Percent Iron Saturation 24.5 %
== END 2023-11-26 12:50 | disposition home or self-care (01) ==
LOC: CARD 12:52
PROVIDERS: PCP Family Medicine
DX: R06.02 Shortness of breath (principal); D50.0 Iron deficiency anemia secondary to blood loss (chronic); R68.89 Other general symptoms and signs; R79.82 Elevated C-reactive protein (CRP)
CPT/HCPCS: 36415; 82728; 83540; 83550; 85025; 94010; 94726; 94729

== ENCOUNTER 2023-12-26 16:51 | Outpatient (RCR) | payer MEDICARE, OTHER, SELFPAY | END 2024-04-17 10:21 | disposition home or self-care (01) | LOC: PT 16:51 | PROVIDERS: PCP Family Medicine | DX: S42.231D 3-part fracture of surgical neck of right humerus, subsequent encounter for fracture with routine healing (principal) | CPT/HCPCS: 97110; 97140; 97161 ==

== ENCOUNTER 2024-02-24 11:11 | Outpatient (OUT) | payer MEDICARE, OTHER, SELFPAY ==
--- NOTE | 2024-02-24 | XR_ITS ---
The [address] [address] Patient Name: RAMEZ VELA MRN: [id number] date: 1940 Sex: F Assigned Patient Location: [facility] Current Patient Location: Accession/Order Number: [id number] Exam Date: 02/24/2024 11:25 Report Date: 02/25/2024 13:33 At the request of: JESSICA MAXWELL Procedure: XR ankle LT min 3V PROCEDURE: XR foot LT min 3V, XR ankle LT min 3V COMPARISON: None. HISTORY: Acute left foot pain FINDINGS: BONES:5 mm noncorticated calcific density identified along the dorsal aspect of the navicular best seen on the lateral projections cyst within acute fracture. Lucency identified through the tip of the fibula suspicious for an acute fracture. Remote fracture with internal fixation utilizing a single pin in the fifth metacarpal. Degenerative changes most significant first metatarsal-phalangeal joint SOFT TISSUES:Negative. No visible soft tissue swelling. EFFUSION:None visible. OTHER: Negative. XR/XR ankle LT min 3V IMPRESSION: Acute avulsion fracture dorsal navicular Suspected transverse fracture tip of the lateral malleolus, age indeterminate Moderate dorsal foot and ankle soft tissue swelling Electronically authenticated by: MANUEL HAYWOOD Date: 02/25/2024 13:33
--- NOTE | 2024-02-24 | XR_ITS ---
The [address] [address] Patient Name: RAMEZ VELA MRN: [id number] date: 1940 Sex: F Assigned Patient Location: [facility] Current Patient Location: Accession/Order Number: [id number] Exam Date: 02/24/2024 11:25 Report Date: 02/25/2024 13:33 At the request of: JESSICA MAXWELL Procedure: XR foot LT min 3V PROCEDURE: XR foot LT min 3V, XR ankle LT min 3V COMPARISON: None. HISTORY: Acute left foot pain FINDINGS: BONES:5 mm noncorticated calcific density identified along the dorsal aspect of the navicular best seen on the lateral projections cyst within acute fracture. Lucency identified through the tip of the fibula suspicious for an acute fracture. Remote fracture with internal fixation utilizing a single pin in the fifth metacarpal. Degenerative changes most significant first metatarsal-phalangeal joint SOFT TISSUES:Negative. No visible soft tissue swelling. EFFUSION:None visible. OTHER: Negative. XR/XR foot LT min 3V IMPRESSION: Acute avulsion fracture dorsal navicular Suspected transverse fracture tip of the lateral malleolus, age indeterminate Moderate dorsal foot and ankle soft tissue swelling Electronically authenticated by: MANUEL HAYWOOD Date: 02/25/2024 13:33
--- OUTSIDE RECORDS SUMMARY | 2024-02-24 11:37 | XMS_ITS | CCD ---
Author Organization [facility] Care Team Providers Care [employer] Supervisor Name Role Phone Jessica Maxwell MD Primary Care Provider Jayant Ambrocio Unavailable Jeb Salas Unavailable PROVIDER, UNKNOWN Admitting Unavailable PROVIDER, UNKNOWN Attending Unavailable Jessica Maxwell MD Primary Care Provider MITALI NARAYAN Consulting Unavailable JESSICA MAXWELL Primary Care Unavailable MITALI NARAYAN Admitting Unavailable MITALI NARAYAN Attending Unavailable MITALI NARAYAN MD Consulting Unavailable EDIN BOO Attending Unavailable VIVIAN MORA Referring Unavailable JESSICA MAXWLEL Primary Care Unavailable Jessica Maxwell Unavailable DO Jeb Salas Attending Provider [phone] Jeb Salas Admitting Unavailable Jeb Salas Attending Unavailable ALISSA, DR JESSICA Hale Admitting Unavailable ALISSA, DR JESSICA Hale Attending Unavailable ALISSA, DR JESSICA Hale Primary Care Unavailable ALISSA, DR JESSICA Hale Admitting Unavailable ALISSA, DR JESSICA Hale Primary Care Unavailable ALISSA, DR JESSICA aHle Attending Unavailable JEB SALAS Admitting Unavailable JEB SALAS Attending Unavailable ALISSA, DR JESSICA Hale Primary Care Unavailable SHRUTHI ANTON Admitting Unavailable SURESH Mireles, MR MCCORMICK Consulting Unavailable ALISSA, DR JESSICA Hale Primary Care Unavailable SHRUTHI ANTON Attending Unavailable SHRUTHI ANTON Consulting Unavailable MANUEL KOCH Consulting Unavailable SHAHZAD TOMAS Consulting Unavailable FELIPA HOPPER Consulting Unavailable ALISSA, DR JESSICA Hale Attending Unavailable WEST, DR MANUEL Lagos Consulting Unavailable ALISSA, DR JESSICA Hale Primary Care Unavailable ALISSA, DR JESSICA Hale Admitting Unavailable ALISSA, DR JESSICA Hale Consulting Unavailable ALISSA, DR JESSICA Hale Admitting Unavailable MAXWELL, DR JESSICA Hale Attending Unavailable MAXWELL, DR JESSICA Hale Consulting Unavailable MAXWELL, DR JESSICA Hale Primary Care Unavailable DR JAYANT AMBROCIO Admitting Unavailable ALISSA, DR JESSICA Hale Primary Care Unavailable DR JAYANT AMBROCIO Attending Unavailable David Arellano DO Primary Care Provider Jessica Maxwell MD Primary Care Provider [phone] DEEPIKA GARCIA Attending Unavailable MAXWELL, JESSICA E Referring Unavailable MAXWELL, JESSICA E Primary Care Unavailable WERNER NOLASCO Attending Unavailable WERNER NOLASCO Attending Unavailable BROWN, DEEPIKA Referring Unavailable MAXWELL, JESSICA E Primary Care Unavailable BROWN, DEEPIKA Referring Unavailable MAXWELL, JESSICA E Primary Care Unavailable BROWN, DEEPIKA Referring Unavailable MAXWELL, JESSICA E Primary Care Unavailable MAXWELL, JESSICA E Primary Care Unavailable ARNOLD, BO H Attending Unavailable ARNOLD, BO H Attending Unavailable ARNOLD, BO H Referring Unavailable MAXWELL, JESSICA E Primary Care Unavailable ARNOLD, BO H Attending Unavailable ARNOLD, BO H Referring Unavailable MAXWELL, JESSICA E Primary Care Unavailable SAPORITA, EMY L Referring Unavailable MAXWELL, JESSICA E Primary Care Unavailable SAPORITA, EMY L Referring Unavailable MAXWELL, JESSICA E Primary Care Unavailable MAXWELL, JESSICA E Referring Unavailable MAXWELL, JESSICA E Primary Care Unavailable ALLEN VELASCO Attending Unavailable MAXWELL, JESSICA E Referring Unavailable MAXWELL, JESSICA E Primary Care Unavailable ALDHAHERI, ANWER Referring Unavailable MAXWELL, JESSICA E Primary Care Unavailable Allergies Allergy Classification Reported Allergen(s) Allergy Type Date of Onset Reaction(s) Facility (20 sources) Sulfonamides (Antibiotic); 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: [SULFA (SULFONAMIDE ANTIBIOTICS)] Drug Intolerance 04-18-20 14 Rash, Unknown [facility] (1 source) sulfaSALAzine Drug Allergy Unknown [facility] Other (1 source) Sulfonamides (Antibiotic) Propensity to adverse reactions to drug 04-14-20 22 [facility] (2 sources) Sulfonamides (Antibiotic) Drug allergy (disorder) 12-15-19 13 [facility] (18 sources) celecoxib; 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: [CELECOXIB] Drug Allergy 05-24-20 13 Unknown, [facility] (1 source) patient allergy list reviewed by nurse or physicia Propensity to adverse reactions 02-03-20 19 Comment:Done [facility] Other (1 source) Allergies Reconciled Propensity to adverse reactions Unknown [facility] Other (2 sources) celecoxib Drug Allergy 08-24-19 [facility] (5 sources) pantoprazole; 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: [PANTOPRAZOLE] Drug Allergy 02-28-20 [facility] (5 sources) Other; 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: [OTHER] Propensity to adverse reactions 05-02-20 [facility] Work Phone: Medications Current Medications Medication Drug Class(es) Dates Sig (Normalized) Sig (Original) acetaminophen 500 mg oral tablet (6 sources) Start: 04-14-2022 acetaminophen (TYLENOL) tablet 1,000 mg take 1 tablet by mouth every six hours Tylenol Extra Strength 500 MG 1 tablet as needed Orally every 6 hrs Not-Taking/PRN aspirin 81 mg delayed release oral tablet (20 sources) Platelet Aggregation Inhibitor, Nonsteroidal Anti-inflammatory Drug Start: 09-17-2023 take 1 tablet by mouth twice daily Aspirin Active 81 MG PO Twice daily September 17, 2023 12:00am [facility] tablet Orally BID; Note: Source Status: Not-Taking\PRN; Refills: 0; Qty: 28 Tablet; Provider: Ginna Ramos Start: 10-05-2021 take 1 tablet by corby th every twelve hours Aspirin 81 MG 1 tablet Orally BID for 14 days Sep, Not-Taking/PRN take 1 tablet by corby th once daily aspirin, enteric coated (ASPIRIN, ENTERIC COATED) 81 mg EC tablet Take 81 mg by mouth once daily. 0 Active Comment on above: Take 81 mg by mouth once daily. clonazePAM 0.5 mg oral tablet (20 sources) Benzodiazepine Start: take 1 tablet by mouth twice daily as needed Clonazepam Active 0.5 MG PO .PRN September 17, 2023 12:00am [facility]: TAKE 1 TABLET BY MOUTH TWICE A DAY NEEDED; Note: Source Status: Taking; Refills: 2; Qty: 60 Tablet; Provider: Alissa Hale Start: 04-15-2022 take 0.25 mg by mout h three times daily as needed 0.25 mg, Oral, 3 TIMES DAILY PRN, Starting on 04/15/22 at 0013, Until Discontinued, Anxiety, facial tic Start: 12-20-2019 take 1 tablet by corby th twice daily as needed clonazePAM 0.5 MG TAKE 1 TABLET BY MOUTH TWICE A DAY NEEDED for 30 Jun, Active take 0.25 mg by mout h [...] as needed. clopidogrel 75 mg oral tablet (14 sources) P2Y12 Platelet Inhibitor Start: 07-24-2023 take 1 tablet by mouth once daily clopidogreL (PLAVIX) 75 mg tablet TAKE 1 TABLET BY MOUTH EVERY DAY 90 tablet 1 07/24/2023 Active Start: 07-24-2023 take 1 tablet by corby th once daily clopidogreL (PLAVIX) 75 mg tablet TAKE 1 TABLET BY MOUTH EVERY DAY 90 tablet 1 07/24/2023 Active Start: 12-23-2022 End: 07-24-2023 take 1 tablet by mouth once daily clopidogreL (PLAVIX) 75 mg tablet TAKE 1 TABLET BY MOUTH EVERY DAY 90 tablet 1 12/23/2022 07/24/2023 Discontinued Start: 04-29-2022 take 1 tablet by corby th once daily clopidogrel (PLAVIX) 75 MG tablet Take 1 tablet by mouth daily Hold plavix x 2 weeks . Follow up with primary providers 30 tablet 3 04/29/2022 Active End: 04-15-2022 take 1 tablet by mouth in the morning clopidogrel (Plavix) 75 MG tablet Take 75 mg by mouth in the morning. 0 Active hydrocortisone 25 mg/ml topical cream (11 sources) Corticosteroid Start: 08-22-2023 Hydrocortisone Active 0 .ROUTE .COMPLEX August 22, 2023 1:33pm APPLY TO AFFECTED AREA 1-2 TIMES DAILY NEEDED Start: 08-22-2023 End: 08-22-2023 Hydrocortisone Discontinued 1 APPLIC TOPICAL August 22, 2023 12:00am August 22, 2023 1:33pm APPLY TO AFFECTED AREA 1-2 TIMES DAILY NEEDED Hydrocortisone ( Perianal) 2.5 % APPLY TO AFFECTED AREA 1-2 TIMES DAILY NEEDED for 15 Active Hydrocortisone ( Perianal) 2.5 % APPLY TO AFFECTED AREA 1-2 TIMES DAILY NEEDED for 15 Active ipratropium bromide 0.042 mg/actuat metered dose nasal spray (20 sources) Anticholinergic Start: 09-17-2023 take 2 spray(s) nasal route once daily Ipratropium Radcliffe Active 2 SPRAY INTRANASAL Daily September 17, 2023 12:00am [facility] sprays in each nostril Nasally Once a Day; Note: Source Status: Taking; Refills: 5; Provider: Alissa Hale take 2 spray(s) nasal route once daily Ipratropium Radcliffe 0.06 % 2 sprays in each nostril Nasally Once a Day for 30 days Active ipratropium (Atr ovent) 0.03 % nasal spray Administer 2 sprays into each nostril every 12 (twelve) hours. 0 Active take 2 spray(s) nasal route once daily Ipratropium Radcliffe 0.06 % 2 sprays in each nostril Nasally Once a Day for 30 days Active take 2 spray(s) nasa l route three times daily Ipratropium Radcliffe 0.06 % 2 sprays in e ach [...] 2 Sprays in the nose once daily. Lactobacillus acidophilus (3 sources) Lactobacillus acidophilus (PROBIOTIC ORAL) Take by mouth. 0 Active levothyroxine sodium 0.05 mg oral tablet (20 sources) l-Thyroxine Start: take 1 tablet by mouth once daily in the morning Levothyroxine Active 1 TAB PO Daily September 17, 2023 12:00am [employer] tablet in the morning on an empty stomach Orally Once a day; Note: Source Status: Taking; Provider: Alissa Hoffman ( ) Start: 04-15-2022 End: 07-24-2023 take 1 tablet by mouth once daily in the morning levothyroxine (SYNTHROID, LEVOTHROID) 50 MCG tablet Indications: Postprocedural hypothyroidism , Postoperative hypothyroidism TAKE 1 TABLET BY MOUTH EVERY DAY IN THE MORNING ON EMPTY STOMACH FOR 90 DAYS 90 tablet 3 07/24/2023 Active take 1 tablet by corby th once daily in the morning Levothyroxine Sodium 50 MCG 1 tablet in the morning on an empty stomach Orally Once a day Active Comment on above: Take 50 mcg by mouth daily before breakfast. liothyronine sodium 0.005 mg oral tablet (20 sources) l-Triiodothyronine Start: take 1 tablet by mouth once daily Liothyronine Active 5 MCG PO Daily September 17, 2023 12:00am [facility] tablet on an empty stomach Orally Once a day; Note: Source Status: Taking; Provider: Alissa Hoffman ( ) Start: 04-15-2022 End: 08-28-2023 take 1 tablet by mouth once daily liothyronine (CYTOMEL) 5 MCG tablet Indications: Postprocedural hypothyroidism , Postoperative hypothyroidism TAKE 1 TABLET BY MOUTH EVERY DAY ON AN EMPTY STOMACH 90 tablet 3 08/28/2023 Active take 1 tablet by corby th every twenty-four hours Liothyronine Sodium 5 MCG 1 tablet on an empty stomach Orally Once a day Active meloxicam 15 mg oral tablet (8 sources) Nonsteroidal Anti-inflammatory Drug Start: 07-24-2023 take 15 mg by mouth once daily Meloxicam Active 15 MG PO Daily July 24, 2023 1:00am Meloxicam 15 MG TAKE 1 TABLET BY MOUTH EVERY DAY FOR 30 DAYS for 30 Active metoprolol tartrate 25 mg oral tablet (20 sources) beta-Adrenergic Yuki Start: 09-17-2023 take 1 tablet by mouth twice daily at mealtime Metoprolol Tartrate Active 25 MG PO Twice daily September 17, 2023 12:00am [employer] tablet with food Orally Twice a day; Note: Source Status: Taking; Provider: Alissa Hoffman ( ) Start: 04-16-2022 take 25 mg by mouth twice chelsea y 25 mg, Oral, 2 TIMES DAILY, First dose on Fri04/16/22 at 0900, Until Discontinued Start: 06-22-2020 take 0.5 tablet by m outh twice daily metoprolol tartrate (LOPRESSOR) 25 mg tablet Indications: Paroxysmal atrial fibrillation (CMS-HCC) TAKE 1/2 TABLET BY MOUTH 2 TIMES DAILY 30 tablet 1 06/22/2020 Active Start: 10-07-2018 metoprolol tar trate, short acting, [...] disintegrating tablet 4 mg polyethylene glycol 3350 [id number] mg powder for oral solution (1 source) Osmotic Laxative Start: 04-14-20 polyethylene glycol (GLYCOLAX) packet 17 g saccharomyces boulardii 250 mg oral capsule (2 sources) take 1 capsule by mouth in the morning saccharomyces boulardii (Florastor) 250 MG capsule Take 250 mg by mouth in the morning and 250 mg before bedtime. 0 Active sennosides, fci 8.6 mg oral tablet (1 source) Start: 04-14-20 senna (SENOKOT) tablet 8.6 mg spironolactone 25 mg oral tablet (20 sources) Aldosterone Antagonist Start: 09-17-19 Spironolactone Active 25 MG PO September 17, 2023 12:00am [employer] tablet Orally; Note: Source Status: Taking; Provider: Alissa Hoffman ( ) Start: 11-17-2019 take 25 mg by mouth once daily 25 mg, Oral, DAILY, First dose on Fri04/15/22 at 0900, Until Discontinued Comment on above: Take 25 mg by mouth once daily. terbinafine (7 sources) Allylamine Antifungal Terbinafin e Active Completed/Discontinued Medications Medication Drug Class(es) Dates Sig (Normalized) Sig (Original) ALPRAZolam 0.25 mg oral tablet (1 source) Benzodiazepine take 1 tablet by mouth three times daily ALPRAZolam (XANAX) 0.25 mg tablet Take 0.25 mg by mouth three times daily. 0 Active Comment on above: Take 0.25 mg by mout h three times daily. bisacodyl 5 mg delayed release oral tablet (1 source) Stimulant Laxative Start: 01-13-2020 bisacodyl EC (DULCOLAX) 5 mg EC tablet as directed. 0 01/13/2020 Active Comment on above: as directed. calcium carbonate 1250 mg / cholecalciferol 200 unt oral tablet (1 source) Vitamin D take 2 tablets by mouth twice daily calcium-carbona te-vitamin D3 500 mg(1,250mg) -200 unit per tablet Take 2 tablets by mouth twice daily. 0 Active Comment on above: Take 2 tablets by mo [facility] twice daily. donepezil hydrochloride 10 mg oral tablet (1 source) Start: 10-18-2019 take 1 tablet by mouth once daily [...] % injection 130 mL (1 source) Start: 04-14-2022 End: 04-14-2022 iopamidol (ISOVUE-370) 76 % injection 130 mL OTC PRODUCT (2 sources) OTC PRODUCT Kenzen BDZ Support Strength and [...] 04-15-2022 0.9 % sodium chloride infusi on Tylenol Extra Strength 500 MG (15 sources) take 1 tablet by corby every six hours as needed Tylenol Extra [...] anxiety disorder] Onset: 5 Chronic Cardiac dysrhythmias (12 sources) Atrial fibrillation; 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: [Unspecified atrial fibrillation] Onset: 9 11-18-2019 Chronic Coagulation and hemorrhagic disorders (3 sources) Thrombocytopenic disorder; 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: [Thrombocytopenia, unspecified] Onset: 9 11-01-2018 Chronic Coagulation and hemorrhagic disorders (1 source) Spontaneous ecchymosis; 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: [Spontaneous ecchymoses] Episodic Complications of surgical procedures or medical care (7 sources) Postoperative hypothyroidism; 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: [Postprocedural hypothyroidism] Onset: 5 07-24-2023 Chronic Conduction disorders (4 sources) Cardiac pacemaker in situ; 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: [Presence of cardiac pacemaker] Onset: 9 08-07-2020 Chronic Deficiency and other anemia (1 source) Iron deficiency anemia due to blood loss; 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: [Iron deficiency anemia secondary to blood loss (chronic)] Onset: 0 01-13-2020 Chronic Delirium, dementia, and amnestic and other cognitive disorders (1 source) Unspecified dementia without behavioral disturbance; 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: [UNSP GABRIELLA UNS SEV W/O DSTRB ANXTY] Onset: 2 Chronic E Codes: Fall (2 sources) Fall on same level from slipping, tripping and stumbling with subsequent striking against other object, initial encounter; 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: [Unspecified fall, initial encounter] Onset: 2 Episodic E Codes: Natural/environment (1 source) Dog bite; 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: [Bitten by dog, initial encounter] Episodic Essential hypertension (20 sources) Essential hypertension; 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: [Essential (primary) hypertension] Onset: 4 Chronic Fracture of upper limb (2 sources) 3-part fracture of surgical neck of right humerus, initial encounter for closed fracture; 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: [Fracture of right shoulder girdle, part unspecified, initial encounter for closed fracture] Onset: 4 Episodic Heart valve disorders (12 sources) Nonrheumatic mitral (valve) insufficiency; 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: [Rheumatic disease of mitral valve] Onset: 9 08-28-2018 Chronic Hemorrhoids (1 source) Thrombosed hemorrhoids; 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: [Perianal venous thrombosis] Episodic Malaise and fatigue (20 sources) Fatigue; 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: [Chronic fatigue, unspecified] Chronic Mycoses (1 source) Onychomycosis due to dermatophyte ; 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: [Tinea unguium] 07-10-2023 Episodic Nonspecific chest pain (2 sources) Chest pain; 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: [Chest pain, unspecified] Onset: 8 Episodic Nutritional deficiencies (20 sources) Vitamin D deficiency, unspecified; 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: [Vitamin D deficiency] Onset: 2 Chronic Osteoarthritis (20 sources) Osteoarthritis of right hip joint; 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: [Unilateral primary osteoarthritis, right hip] Chronic Osteoporosis (3 sources) Primary osteoporosis; 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: [Age-related osteoporosis without current pathological fracture] Onset: 4 Chronic Other and ill-defined cerebrovascular disease (3 sources) Cerebrovascular disease; 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: [Cerebrovascular disease, unspecified] Onset: 1 11-27-2020 Chronic Other connective tissue disease (1 source) [...] 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: [Impacted cerumen, unspecified ear] Episodic Other endocrine disorders (3 sources) Hyperparathyroidism; 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: [Hyperparathyroidism, unspecified] Onset: 3 09-16-2022 Chronic Other female genital disorders (1 source) Noninflammatory [...] 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: [Pain in right hip] Episodic Other non-traumatic joint disorders (1 source) Pain in right shoulder; 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: [Pain in right shoulder] Onset: 4 Episodic Other non-traumatic joint disorders (1 source) Shoulder pain Onset: 4 Episodic Other nutritional; endocrine; and metabolic disorders (2 sources) Hypercalcemia; 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: [HYPERCALCEMIA] Onset: 2 Chronic Other nutritional; endocrine; and metabolic disorders (11 sources) Hypercalcemia; 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: [Hypercalcemia] Onset: 7 Chronic [...] disorders of nose and nasal sinuses] Episodic Rosamaria-; endo-; and myocarditis; cardiomyopathy (except that caused by tuberculosis or sexually transmitted disease) (1 source) Endocarditis, valve unspecified; 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: [Endocarditis, valve unspecified] Onset: 4 Chronic Residual codes; unclassified (1 source) Family history [...] hip, subsequent encounter Episodic Superficial injury; contusion (3 sources) Contusion of other part of head, initial encounter; 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: [Contusion of hand] Onset: 2 Episodic Thyroid disorders (17 sources) Hypothyroidism, unspecified; 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: [Hypothyroidism] Onset: 2 Chronic Transient cerebral ischemia (4 sources) Transient cerebral ischemia; 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: [Unspecified transient cerebral ischemia] Onset: 9 11-27-2020 Chronic Unclassified (3 sources) Traumatic subdural hemorrhage [...] [CONTACT W/AND (SUSP) EXPOS COVID-19] Onset: 2 Unclassified (1 source) Device Check Onset: 4 Unclassified (1 source) EMS Onset: 4 Unclassified (1 source) Outpatient Infusion Onset: 4 Viral infection (1 source) Disease caused by 2019-nCoV; 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: [COVID-19] Past or Other Problems Problem Classification Problem Date Documented Da te Episodic/Chronic Allergic reactions (1 source) Allergic contact dermatitis; 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: [Allergic contact dermatitis, unspecified cause] Onset: 7 Episodic Cardiac dysrhythmias (3 sources) Bradycardia; 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: [Bradycardia, unspecified] Onset: 9 11-04-2018 Episodic Diabetes mellitus without complication (1 source) Hyperglycemia; 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: [Hyperglycemia, unspecified] Onset: 9 Episodic Headache; including migraine (4 sources) Headache; 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: [Headache, unspecified] Onset: 5 04-26-2021 Episodic Immunizations and screening for infectious disease [...] LOC 30 MN/< INIT] Onset: 2 Episodic Malaise and fatigue (8 sources) Other fatigue; 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: [Fatigue] Onset: 0 Episodic Mood disorders (3 sources) Mood disorders Onset: 2 10-18-2021 Open wounds of head; neck; and trunk (1 source) Laceration without foreign body of oral cavity, initial encounter; 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: [LACERATION W/O FB ORAL CAV INIT ENC] Onset: 2 Episodic Other aftercare (4 sources) Anticoagulant effect; 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: [termite inspector (current) use of anticoagulants] Onset: 0 Resolved: 2 11-18-2019 Episodic Other aftercare (1 source) skilled nursing (current) use of antithrombotics/antipl atelets; 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: [DOCUMENT MANAGER ANTITHROMBOT/ANTIPLATL ETS] Onset: 2 Episodic Other aftercare (1 source) Other penitentiary (current) drug therapy; 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: [OTH DOCUMENT MANAGER CURRENT DRUG THERAPY] Onset: 2 Episodic Other aftercare (3 sources) Long-term current use of anticoagulant; 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: [termite inspector (current) use of anticoagulants] Onset: 9 11-06-2018 Episodic Other aftercare (3 sources) Wound ; 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: [Encounter for other specified surgical aftercare] Onset: 9 11-16-2018 Episodic Other bone disease and musculoskeletal deformities (3 sources) Osteopenia; 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: [Other specified disorders of bone density and structure, unspecified site] Onset: 3 09-16-2022 Episodic Other bone disease and musculoskeletal deformities (1 source) Other specified disorders of bone density and structure, unspecified site; 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: [Other specified disorders of bone density and structure, unspecified site] Onset: 3 Episodic Other circulatory disease (4 sources) History of transient ischemic attack; 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: [Personal history of transient ischemic attack (TIA), and cerebral infarction without residual deficits] Onset: 0 Resolved: 2 11-18-2019 Episodic Other connective tissue disease (1 source) Pain in left lower leg; 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: [PAIN IN LEFT LOWER LEG] Onset: 2 Episodic Other female genital disorders (1 source) Dyspareunia; 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: [Unspecified dyspareunia] Resolved: 9 Chronic Other gastrointestinal disorders (1 source) Flatulence, eructation and gas pain; 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: [Abdominal distension (gaseous)] Onset: 6 Episodic Other gastrointestinal disorders (3 sources) Altered bowel function; 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: [Change in bowel habit] Onset: 8 04-27-2018 Episodic Other gastrointestinal disorders (3 sources) Diarrhea; 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: [Diarrhea, unspecified] Onset: 8 04-27-2018 Episodic Other hereditary and degenerative nervous system conditions (3 sources) Tardive dyskinesia; 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: [Drug induced subacute dyskinesia] Onset: 1 11-27-2020 Episodic Other injuries and conditions due to [...] Cough; 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: [Cough] Onset: 4 Episodic Other nervous system disorders (3 sources) Involuntary movement; 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: [Unspecified abnormal involuntary movements] Onset: 0 01-05-2020 Episodic Other non-traumatic joint disorders (1 source) [...] Onset: 0 11-18-2019 Episodic Residual codes; unclassified (3 sources) Pain; 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: [Pain, unspecified] Onset: 9 11-01-2018 Episodic Residual codes; unclassified (3 sources) Memory impairment; 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: [Other amnesia] Onset: 0 04-18-2020 Episodic Results Test Name Value Interpretation Reference Range Facility BASIC METABOLIC PANLon 11-30 Anion gap [Moles/Vol] 7 mmol/L Normal 5-15 [facility] Comment on above: Performed By: #### C BCA, PINR, 56062-6, BMP #### [facility] ([id number]) [address] [place] [address] [id number] Calcium [Mass/Vol] 9.9 mg/dL Normal 8.5-10.5 [facility] Comment on above: Performed By: #### C BCA, PINR, 60977-8, BMP #### [facility] ([id number]) [address] [place] [address] [id number] Chloride [Moles/Vol] 109 mmol/L Normal 98-109 [facility] Comment on above: Performed By: #### C BCA, PINR, 65370-4, BMP #### [facility] ([id number]) [address] [place] [address] 19646 CO2 [Moles/Vol] 20 mmol/L Low 22-32 [facility] Comment on above: Performed By: #### C BCA, PINR, 25017-1, BMP #### [facility] ([id number]) [address] [place] [address] [id number] Creatinine [Mass/Vol] 0.82 mg/dL Normal 0.40-1.00 [facility] Comment on above: Result Comment: METH OD TRACEABLE TO IDMS STANDARD Performed By: #### C BCA, PINR, 17320-7, BMP #### [facility] ([id number]) [address] [place] [address] 11160 GFR/1.73 sq M.predicted among non-blacks MDRD (S/P/Bld) [Vol rate/Area] 71 mL/min/{1.73_m2} Normal >59 [facility] Comment on above: Result Comment: Reported eGFR is based on the CKD-EPI 2020 equation that does not use a race coefficient. Performed By: #### C PETE PINR, 42285-1, BMP #### [facility] ([id number]) [address] [place] [address] [id number] Glucose [Mass/Vol] 118 mg/dL High 65-99 [facility] Comment on above: Performed By: #### C EMY FREEMANR, 29441-7, BMP #### [facility] ([id number]) [address] [place] [address] 84331 Potassium [Moles/Vol] 3.6 mmol/L Normal 3.5-5.0 [facility] Comment on above: Performed By: #### C PETE PINR, 42162-9, BMP #### [facility] ([id number]) [address] [place] [address] 58415 Sodium [Moles/Vol] 136 mmol/L Normal 134-146 [facility] Comment on above: Performed By: #### C PETE PINR, 58367-3, BMP #### [facility] ([id number]) [address] [place] [address] 96048 Urea nitrogen [Mass/Vol] 24 mg/dL Normal 5-27 [facility] Comment on above: Performed By: #### C PETE, PINR, 17689-1, BMP #### [facility] ([id number]) [address] [place] [address] 59211 CBC AND AUTO DIFFon 11-30- 24 ABSOLUTE BASOPHIL 0.0 X10E9/L Normal 0.0-0.2 [facility] Comment on above: Performed By: #### C PETE PINR, 06348-6, BMP #### [facility] ([id number]) [address] [place] [address] 78564 ABSOLUTE NEUTROPHIL 2.6 X10E9/L Normal 1.5-6.6 [facility] Comment on above: Performed By: #### Aubrey FREEMAN PINR, 93740-1, BMP #### [facility] ([id number]) [address] [place] [address] 69492 Basophils/100 WBC (Bld) 0.5 % Normal [facility] Comment on above: Performed By: #### C PETE PINR, 37945-8, BMP #### [facility] ([id number]) [address] [place] [address] 28909 Eosinophils (Bld) [#/Vol] 0.2 10*3/uL Normal 0.0-0.4 [facility] Comment on above: Performed By: #### Aubrey FREEMAN PINR, 58650-2, BMP #### [facility] ([id number]) [address] [place] [address] 71699 Eosinophils/100 WBC (Bld) 3.5 % Normal [facility] Comment on above: Performed By: #### EMY Burgos BCAR, 43758-0, BMP #### [facility] ([id number]) [address] [place] [address] 81798 Erythrocyte distribution width (RBC) [Ratio] 13.3 % Normal 11.5-15.0 [facility] Comment on above: Performed By: #### C PETE PINR, 11578-1, BMP #### [facility] ([id number]) [address] [place] [address] 46939 Hematocrit (Bld) [Volume fraction] 36.5 % Normal 35-47 [facility] Comment on above: Performed By: #### Aubrey FREEMAN PINR, 02362-9, BMP #### [facility] ([id number]) [address] [place] [address] 59777 Hemoglobin (Bld) [Mass/Vol] 12.6 g/dL Normal 11.7-15.5 [facility] Comment on above: Performed By: #### EMY Burgos BCAR, 24463-5, BMP #### [facility] ([id number]) [address] [place] [address] 52915 Lymphocytes (Bld) [#/Vol] 1.8 10*3/uL Normal 1.0-3.5 [facility] Comment on above: Performed By: #### EMY Burgos BCAR, 78737-6, BMP #### [facility] ([id number]) [address] [place] [address] 46798 Lymphocytes/100 WBC (Bld) 35.7 % Normal [facility] Comment on above: Performed By: #### EMY Burgos BCAR, 42848-2, BMP #### [facility] ([id number]) [address] [place] [address] 30270 MCH (RBC) [Entitic mass] 29.7 pg Normal 27-34 [facility] Comment on above: Performed By: #### EMY Burgos BCAR, 96794-4, BMP #### [facility] ([id number]) [address] [place] [address] 16725 MCHC (RBC) [Mass/Vol] 34.5 g/dL Normal 32-36 [facility] Comment on above: Performed By: #### Aubrey FREEMAN PINR, 66410-7, BMP #### [facility] ([id number]) [address] [place] [address] 31293 MCV (RBC) [Entitic vol] 86 fL Normal 80-100 [facility] Comment on above: Performed By: #### Aubrey FREEMAN PINR, 37014-1, BMP #### [facility] ([id number]) [address] [place] [address] 83611 Monocytes (Bld) [#/Vol] 0.4 10*3/uL Normal 0-0.9 [facility] Comment on above: Performed By: #### EMY Burgos BCAR, 91480-6, BMP #### [facility] ([id number]) [address] [place] [address] 44116 Monocytes/100 WBC (Bld) 7.7 % Normal [facility] Comment on above: Performed By: #### Aubrye FREEMAN PINR, 80014-4, BMP #### [facility] ([id number]) [address] [place] [address] 50862 Neutrophils/100 WBC (Bld) 52.6 % Normal [facility] Comment on above: Performed By: #### EMY Burgos BCAR, 92553-1, BMP #### [facility] ([id number]) [address] [place] [address] 82917 Platelet mean volume (Bld) [Entitic vol] 7.9 fL Normal 7-12 [facility] Comment on above: Performed By: #### EMY Burgos BCAR, 85338-5, BMP #### [facility] ([id number]) [address] [place] [address] 15083 Platelets (Bld) [#/Vol] 171 10*3/uL Normal 150-450 [facility] Comment on above: Performed By: #### EMY Burgos BCAR, 25417-3, BMP #### [facility] ([id number]) [address] [place] [address] 88382 RBC COUNT 4.24 X10E12/L Normal 3.80-5.20 [facility] Comment on above: Performed By: #### Aubrey FREEMAN PINR, 39922-1, BMP #### [facility] ([id number]) [address] [place] [address] 63188 WBC (Bld) [#/Vol] 4.9 10*3/uL Normal 4.0-11.0 [facility] Comment on above: Performed By: #### C BCA, PINR, 35111-5, BMP #### [facility] ([id number]) [address] [place] [address] 16483 PROTIME AND INRon 12-01-2023 INR Coag (PPP) [Relative time] 1.0 {INR} Normal 0.8-1.1 [facility] Comment on above: Performed By: #### C BCA, PINR, 39985-0, BMP #### [facility] ([id number]) [address] [place] [address] 78713 PT Coag (PPP) [Time] 11.5 s Normal 9.8-13.2 [facility] Comment on above: Result Comment: NEW REFERENCE RANGE Performed By: #### C PETE, PINR, 50761-5, BMP #### [facility] ([id number]) [address] [place] [address] 27529 XR CHEST 1 VWon 12-01-2023 XR CHEST 1 VW XR CHEST 1 VW Single view chest History: Difficulty breathing, shortness of breath Comparison: 11/14/2022 Impression: 1. No acute pulmonary process. No pneumothorax or pleural effusion. 2. Nonenlarged heart. Cardiac valve prostheses. Left chest wall cardiac electronic device. 3. Comminuted right proximal humeral fracture. Finalized by Keshawn Brock MD on 12/01/2023 11:27 PM Normal [facility] XR ELBOW RT MIN 3 VWSon 11-08 XR ELBOW RT MIN 3 VWS XR ELBOW RT MIN 3 VWS XR ELBOW RT MIN 3 VWS HISTORY: Trauma. Elbow pain COMPARISON: none IMPRESSION: 1. No acute fracture or dislocation. No effusion. 2. Mild degenerative changes of the elbow. Finalized by Keshawn Brock MD on 12/01/2023 11:26 PM Normal [facility] XR HAND RT MIN 3 VWSon 11-30 XR HAND RT MIN 3 VWS XR HAND RT MIN 3 VW S XR HAND RT MIN 3 VWS HISTORY: Trauma. Wrist pain COMPARISON: none IMPRESSION: 1. No acute fracture or dislocation. Soft tissue swelling about the first metacarpal. 2. Degenerative changes first interphalangeal and first CMC joints. 3. Chondrocalcinosis TFCC. 4. Osteopenia. Finalized by Keshawn Brock MD on 12/01/2023 11:28 PM Normal [facility] XR SHOULDER RT MIN 2 VWSon 0 12-01-2023 XR SHOULDER RT MIN 2 VWS XR SHOULDER RT MIN 2 VWS XR SHOULDER RT MIN 2 VWS HISTORY: Trauma. Shoulder pain COMPARISON: none IMPRESSION: Comminuted proximal right humeral fracture involving the anterior tubercular groove and surgical neck. Effacement of the glenohumeral interval suggesting underlying rotator cuff pathology. Osteopenia. Finalized by Keshawn Brock MD on 12/01/2023 11:27 PM Normal [facility] aPTT Coag (PPP) [Time]on aPTT Coag (Bld) [Time] 36 s Normal 26-37 [facility] Comment on above: Result Comment: NEW REFERENCE RANGE Performed By: #### C BCA, PINR, 93740-3, BMP #### [facility] ([id number]) [address] [place] [address], [place] [address] BASIC METABOLIC PANLon 10-09 Anion gap [Moles/Vol] 9 mmol/L Normal 5-15 [facility] Comment on above: Performed By: #### B MP, 3016-3, 3051-0, 3024-7, 55272-9 #### [facility] ([id number]) [address] [place] [address] Calcium [Mass/Vol] 10.3 mg/dL Normal 8.5-10.5 [facility] Comment on above: Performed By: #### B MP, 3016-3, 3051-0, 3024-7, 95679-1 #### [facility] ([id number]) [address], [address] [place] [address] Chloride [Moles/Vol] 105 mmol/L Normal 98-109 [facility] Comment on above: Performed By: #### B MP, 3016-3, 3051-0, 3024-7, 09721-0 #### [facility] ([id number]) [address], [address] [place] [address] CO2 [Moles/Vol] 26 mmol/L Normal 22-32 [facility] Comment on above: Performed By: #### B JACKLYN, 3016-3, 3051-0, 3024-7, 51351-1 #### [facility] ([id number]) [address], [address] [place] [address] Creatinine [Mass/Vol] 0.72 mg/dL Normal 0.40-1.00 [facility] Comment on above: Result Comment: METH OD TRACEABLE TO IDMS STANDARD Performed By: #### B JACKLYN, 3016-3, 3051-0, 3024-7, 93620-6 #### [facility] ([id number]) [address], [facility] [address] [place] [address] GFR/1.73 sq M.predicted among non-blacks MDRD (S/P/Bld) [Vol rate/Area] 83 mL/min/{1.73_m2} Normal >59 [facility] Comment on above: Result Comment: Reported eGFR is based on the CKD-EPI 2020 equation that does not use a race coefficient. Performed By: #### B MP, 3016-3, 3051-0, 3024-7, 35174-1 #### [facility] ([id number]) [address], [address] [place] [address] Glucose [Mass/Vol] 93 mg/dL Normal 65-99 [facility] Comment on above: Performed By: #### B MP, 3016-3, 3051-0, 3024-7, 37903-1 #### [facility] ([id number]) [address], [address] [place] [address] Potassium [Moles/Vol] 3.9 mmol/L Normal 3.5-5.0 [facility] Comment on above: Performed By: #### B JACKLYN, 3016-3, 3051-0, 3024-7, 83265-1 #### [facility] ([id number]) [address], [address] [place] [address] Sodium [Moles/Vol] 140 mmol/L Normal 134-146 [facility] Comment on above: Performed By: #### B JACKLYN, 3016-3, 3051-0, 3024-7, 22777-3 #### [facility] ([id number]) [address], [address] [place] [address] Urea nitrogen [Mass/Vol] 18 mg/dL Normal 5-27 [facility] Comment on above: Performed By: #### B JACKLYN, 3016-3, 3051-0, 3024-7, 82710-4 #### [facility] ([id number]) [address], [address] [place] [address] FREE T3on 10-10-2023 Free T3 [Mass/Vol] 3.16 pg/mL Normal 2.50-3.90 [facility] Comment on above: Performed By: #### Katt VILLASENOR, 3016-3, 3051-0, 3024-7, 84128-6 #### [facility] ([id number]) [address], [address] [place] [address] FREE T4on 10-10-2023 Free T4 [Mass/Vol] 0.86 ng/dL Normal 0.61-1.60 [facility] Comment on above: Performed By: #### B JACKLYN, 3016-3, 3051-0, 3024-7, 70276-3 #### [facility] ([id number]) [address], [address] [place] [address] TSH Qnon 10-10-2023 TSH 2.04 uIU/mL Normal 0.49-4.67 [facility] Comment on above: Performed By: #### B JACKLYN, 3016-3, 3051-0, 3024-7, 49536-6 #### [facility] ([id number]) [address], [address] [place] [address] Vitamin D+Metabolites [Mass/ Vol]on 10-10-2023 VITAMIN D 25 HYD TOT 36.7 ng/mL Normal 30-100 [facility] Comment on above: Result Comment: Vitamin D status 25 [place] Vitamin D Deficiency <20 ng/mL Insufficiency 20-29 ng/mL Sufficiency 30-100 ng/mL Toxicity >100 ng/mL NOTE: A pediatric reference range has not been established by the surgical instrument maker of this kit. The [place] [employer] recommends a Vitamin D level of = or >20ng/mL in infants and children. Performed By: #### B , 3016-3, 3051-0, 3024-7, 70670-6 #### [facility] ([id number]) [address], [facility] [address] [place] [address] DEXA SCAN CENTRAL SKELETALon 08-29-2023 DEXA SCAN [place] SKELETAL DEXA SCAN [place] SKELETAL CLINICAL INFORMATION: Senile osteoporosis. , Post menopausal, screening for osteoporosis TECHNIQUE: Dual X-ray Absorptiometry (DXA) was performed. COMPARISON: No relevant prior studies available. FINDINGS: LUMBAR SPINE (L1-L3): BMD is 1.014 gm/cm2. T-score is -1.4. LEFT FEMORAL NECK: BMD is 0.726 gm/cm2. T-score is -2.2. LEFT TOTAL FEMUR: BMD is 0.718 gm/cm2. T-score is -2.3. RIGHT FEMORAL NECK: BMD is 0.776 gm/cm2. T-score is -1.9. RIGHT TOTAL FEMUR: BMD is 0.773 gm/cm2. T-score is -1.9. The estimated 10-year probability for a major osteoporotic fracture (utilizing FRAX) is 22.5% and for a hip fracture is 7.3%. IMPRESSION: The exam is considered to be osteopenic by the National Osteoporosis Foundation guidelines. Recommend consideration for initiation of therapy. WHO CLASSIFICATION: Normal: T-score -1.0 or above Osteopenia: T-score -1.1 to < 2.5 Osteoporosis: T-score -2.5 or lower Secondary causes of bone loss should be evaluated if clinically indicated since the etiology of low BMD cannot be determined by BMD measurement alone. The current National Osteoporosis Foundation guide recommends treating patients with FRAX ten year risk scores of greater than or equal to 3% for hip fracture or greater than or equal to 20% for major osteoporotic fracture, to reduce their fracture risk. Finalized by Alysha De La Cruz MD on 08/29/2023 4:10 PM Normal [facility] XR femur LT 2V*on 08-21-2022 XR femur LT 2V* [facility] [place] [address] XRay Report Signed Patient: Ayana Alves MR#: [id number] : 1940 Acct:[id number] Age/Sex: 82 / F ADM Date: 08/21/22 Loc: [facility] [place] Room: Type: [facility] Attending Dr: Jeb Salas DO Copies [...] Pako Sidhu M.D.08/21/2022 3:22 PM Dictation Location: [facility]-- Transcribed By: [facility] 08/21/22 1522 Dictated By: Pako Sidhu DO 08/21/22 1519 Signed By: 08/21/22 1522 Normal [facility] XR femur LT 2V* [facility] Other XR femur LT 2V* [facility] DNA13 Other XR femur LT 2V* [address] [place] [address] No [facility] DNA13 Other XR femur LT 2V* [place] [address] N [facility] DNA13 Other XR femur LT 2V* XRay Report [employer] Other XR femur LT 2V* Signed [employer] Other XR femur LT 2V* Patient: Ayana Alves MR#: [id number] [employer] Other XR femur LT 2V* 484 [employer] Other XR femur LT 2V* : 1940 Acct:[id number] [employer] Other XR femur LT 2V* Age/Sex: 82 / F ADM Date: 08/21/22 [employer] Other XR femur LT 2V* Loc: [facility] Room: Type: [facility] [employer] Other XR femur LT 2V* Attending Dr: Jeb Salas DO [employer] Other XR femur LT 2V* Copies to: Jeb Salas [employer] Other XR femur LT 2V* Ordering Provider: Jeb Salas DO [employer] Other XR femur LT 2V* Date of Service: 08/21/22 [employer] Other XR femur LT 2V* XR/XR femur LT 2V*: PAIN [employer] Other XR femur LT 2V* 2 views LEFTfemur plain film [employer] Other XR femur LT 2V* COMPARISON: None Nor Mang?[employer] Other XR femur LT 2V* HISTORY: LEFT anterior mid back pain for one month [employer] Other XR femur LT 2V* ACUTE FINDINGS:None [employer] Other XR femur LT 2V* DEGENERATIVE CHANGE:Spurring of the hip joints. Adequate joint space. Spurring of the greater [employer] Other XR femur LT 2V* trochanter. Chondrocalcinosis of menisci. [employer] Other XR femur LT 2V* SOFT TISSUE FINDINGS:Unremarkabl e [employer] Other XR femur LT 2V* JOINT EFFUSION:None [employer] Other XR femur LT 2V* POSTOP CHANGES:None [employer] Other XR femur LT 2V* BONE MINERALIZATION:Adequ ate [employer] Other XR femur LT 2V* Calcified fibroid. N [employer] Other XR femur LT 2V* XR/XR femur LT 2V* [employer] Other XR femur LT 2V* IMPRESSION: Mild LEFT hip degeneration. greater trochanter spurring. Chondrocalcinosis of menisci. [employer] Other XR femur LT 2V* Impression dictated by: Pako Sidhu M.D.08/21/2022 3:22 PM [employer] Other XR femur LT 2V* Dictation Location: [place] [address] [employer] Other XR femur LT 2V* Transcribed By: FILIBERTO 08/21/22 1522 [employer] Other XR femur LT 2V* Dictated By: Pako Sidhu DO 08/21/22 1517 [employer] [facility] [employer] Other XR femur LT 2V* Signed By: [facility] [employer] Other XR femur LT 2V* 08/21/22 1522 [employer] Other XR hip LT min 2V(w/wo pelvis )*on 08-21-2022 XR hip LT min 2V(w/wo pelvis)* [facility] Main [place] [address] [place] [address] XRay Report Signed Patient: Ayana Alves MR#: [id number] : 1940 Acct:[id number] Age/Sex: 82 / F ADM Date: 08/21/22 Loc: [facility] [place] Room: Type: [facility] Attending Dr: Jeb Salas DO Copies [...] Pako Sidhu M.D.08/21/2022 3:24 PM Dictation Location: [place] [address] Transcribed By: [facility] 08/21/22 1524 Dictated By: Pako Sidhu DO 08/21/22 152 Signed By: 08/21/22 152 [facility] XR hip LT min 2V(w/wo pelvis)* XR/XR hip LT min 2V(w/wo pelvis)*: Acute pain of left hip [employer] Other XR hip LT min 2V(w/wo pelvis)* 2 views LEFT hip single view pelvis plain film [employer] Other XR hip LT min 2V(w/wo pelvis)* HISTORY:LEFT anterior thigh pain for months. [employer] Other XR hip LT min 2V(w/wo pelvis)* DEGENERATIVE CHANGE:Adequate hip joint space. Spurring of the greater trochanter. [employer] Other XR hip LT min 2V(w/wo pelvis)* BONY MINERALIZATION:Adequ ate [employer] Other XR hip LT min 2V(w/wo pelvis)* Degenerative calcified fibroid. Lower lumbar fixation hardware. [employer] Other XR hip LT min 2V(w/wo pelvis)* XR/XR hip LT min 2V(w/wo pelvis)* [employer] Other XR hip LT min 2V(w/wo pelvis)* IMPRESSION:Unremarka ble LEFT hip. The greater trochanter spurring. [employer] Other XR hip LT min 2V(w/wo pelvis)* Impression dictated by: Pako Sidhu M.D.08/21/2022 3:24 PM [employer] Other XR hip LT min 2V(w/wo pelvis)* Transcribed By: FILIBERTO 08/21/22 [facility] [employer] Other XR hip LT min 2V(w/wo pelvis)* Dictated By: Pako Sidhu DO 08/21/22 [facility] [employer] Other XR hip LT min 2V(w/wo pelvis)* 08/21/22 [facility] [employer] Other CT HEAD WO CONTRASTon 2021 CT [...] symptoms: pt stated was life flighted to [facility] from [place] Relevant Medical/Surgical History: CT done at [place] FINDINGS: BRAIN/VENTRICLES: There is a small amount [...] Don Rahman MD 04/24/22 Final result Normal [facility] Basic Metab w/rfx MGon 04-15 Anion gap [Moles/Vol] 9 mmol/L Normal 9-17 [facility] Comment on above: Performed By: #### B MPX, CDP #### [facility] [address] [place], [place] [id number] Research Staff Member: Yordan Lr MD Performed By: #### C DP, BMPX ####[facility] [place], [place] [id number] Lab Director: Yordan Lr MD Calcium [Mass/Vol] 9.6 mg/dL Normal 8.6-10.4 [facility] Comment on above: Performed By: #### B MPX, CDP #### [place] [address] [place] [address] Research Staff Member: Yordan Lr MD Performed By: #### C DP, BMPX ####[address] [address] Lab Director: Yordan Lr MD Chloride [Moles/Vol] 107 mmol/L Normal 98-107 [facility] Comment on above: Performed By: #### B MPX, CDP #### [address] [address] Research Staff Member: Yordan Lr MD Performed By: #### C DP, BMPX ####[address] [address] Lab Director: Yordan Lr MD CO2 [Moles/Vol] 22 mmol/L Normal 20-31 [facility] Comment on above: Performed By: #### B MPX, CDP #### [address] [address] Research Staff Member: Yordan Lr MD Performed By: #### C DP, BMPX ####[address] [address] Lab Director: Yordan Lr MD Creatinine [Mass/Vol] 0.74 mg/dL Normal 0.50-0.90 [facility] Comment on above: Performed By: #### B MPX, CDP #### [address] [place] [address] [place] [address] Research Staff Member: Yordan Lr MD Performed By: #### C DP, BMPX ####[address] [address] Lab Director: Yordan Lr MD GFR/1.73 sq M.predicted among non-blacks MDRD (S/P/Bld) [Vol rate/Area] mL/min/{1.73_m2} Normal >60 [facility] Comment on above: Result Comment: Effective [...] Performed By: #### B MPX, CDP #### [employer] [address] [place] [address] Research Staff Member: Yordan Lr MD Performed By: #### C DP BMPX ####[facility]fp[facility]aggcou[address] [place] [address] [phone] Director: Yordan Lr MD Glucose [Mass/Vol] 89 mg/dL Normal 70-99 [facility] Comment on above: Performed By: #### B MPX, CDP #### [facility] [address] [place] [address] Research Staff Member: Yordan Lr MD Performed By: #### C SUSAN BMPX ####[facility] Center[facility]hituXddfglmatfcs[address] [place] [address] Lab Director: Yordan Lr MD Potassium [Moles/Vol] 4.1 mmol/L Normal 3.7-5.3 [facility] Comment on above: Performed By: #### B MPX, CDP #### [facility] [address] [place] [address] Research Staff Member: Yordan Lr MD Performed By: #### C SUSAN BMPX ####[facility] CenterZhituWdonrhpymioy[address] [place] [address] Lab Director: Yordan Lr MD Sodium [Moles/Vol] 138 mmol/L Normal 135-144 [facility] Comment on above: Performed By: #### B MPX, CDP #### [facility] [address] [place], [place] [address] Research Staff Member: Yordan Lr MD Performed By: #### C DP, BMPX ####[facility] Center[facility] [address] [place], [place] [id number] Lab Director: Yordan Lr MD Urea nitrogen [Mass/Vol] 16 mg/dL Normal 8-23 [facility] Comment on above: Performed By: #### B MPX, CDP #### [facility] [address] [place] [address] Research Staff Member: Yordan Lr MD Performed By: #### C DP, BMPX ####[facility] [address] [place], [place] [id number] Lab Director: Yordan Lr MD Basic Metabolic Panel w/ Ref dequan to MGon 04-15-2022 Anion gap [Moles/Vol] 9 mmol/L 9 - 17 mmol/L [facility] [employer] Calcium [Mass/Vol] 9.6 mg/dL 8.6 - 10. 4 mg/dL [facility] [employer] Chloride [Moles/Vol] 107 mmol/L 98 - 10 7 mmol/L [facility] [employer] CO2 [Moles/Vol] 22 mmol/L 20 - 31 mmol/L [facility] [employer] Creatinine [Mass/Vol] 0.74 mg/dL 0.50 - 0.90 mg/dL [facility] GFR/1.73 sq M.predicted MDRD (S/P/Bld) [Vol rate/Area] - PINF [facility] Comment on above: Effective Mar 11, [...] [Mass/Vol] 89 mg/dL 70 - 99 mg/dL [facility] Potassium [Moles/Vol] 4.1 mmol/L 3.7 - 5.3 mmol/L [facility] Sodium [Moles/Vol] 138 mmol/L 135 - 144 mmol/L [facility] Urea nitrogen (BldV) [Mass/Vol] 16 mg/dL 8 - 23 mg/dL [facility] CBC with Auto Differentialon 04-15-2022 Absolute Eos # 0.14 [facility] Absolute Immature Granulocyte [facility] Absolute Lymph # 1.04 Low [facility] Absolute [place] # 0.58 [facility] Basophils Absolute [facility] Basophils/100 WBC (Bld) 0 % 0 - 2 % [facility] Eosinophils/100 WBC (Bld) 2 % 1 - 4 % [facility] Hematocrit (Bld) [Volume fraction] 37.9 % 36.3 - 47.1 % [facility] Hemoglobin (Bld) [Mass/Vol] 12.7 g/dL 11.9 - 15.1 g/dL [facility] Immature granulocytes/100 WBC (Bld) 0 % 0 [facility] Interpretation and review of laboratory results Abnormal [facility] Lymphocytes/100 WBC (Bld) 18 % Low 24 - 43 % [facility] MCH (RBC) [Entitic mass] 29.7 pg 25.2 - 33.5 pg [facility] MCHC (RBC) [Mass/Vol] 33.5 g/dL 28.4 - 34.8 g/dL [facility] MCV (RBC) [Entitic vol] 88.6 fL 82.6 - 102.9 fL [facility] Monocytes/100 WBC (Bld) 10 % 3 - 12 % [facility] NRBC Automated 0.0 0.0 per 100 WBC [facility] Platelet distribution width (Bld) [Ratio] 12.6 % 11.8 - 14.4 % [facility] Platelet mean volume (Bld) [Entitic vol] 10.0 fL 8.1 - 13.5 fL [facility] Platelets (Bld) [#/Vol] 161 10*3/uL [facility] RBC (Bld) [#/Vol] 4.28 10*6/uL 3.95 - 5.1 1 m/uL [facility] Segmented neutrophils/100 WBC (Bld) 70 % High 36 - 65 % [facility] Segs Absolute 4.10 [facility] WBC (Bld) [#/Vol] 5.9 10*3/uL [facility] CBC with Diffon 04-15-2022 Abs. Basophil <0.03 Normal 0.00-0.20 [facility] Comment on above: Performed By: #### B MPX, CDP #### [facility] [employer] [address] [place] [address] Research Staff Member: Yordan Lr MD Performed By: #### C DP, BMPX ####[facility] [address] [place], [place] [address])[phone] Director: Yordan Lr MD Abs.Imm.Granulocyte <0.03 Normal 0.00-0.30 [facility] Comment on above: Performed By: #### B MPX, CDP #### [facility] [place] [address] Research Staff Member: Yordan Lr MD Performed By: #### C DP, BMPX ####[facility] [address] [place] [address] [phone] Director: Yordan Lr MD Abs.Neutrophil (Seg) 4.10 k/uL Normal 1.50-8.10 [facility] Comment on above: Performed By: #### B MPX, CDP #### [facility] [place] [address] Research Staff Member: Yordan Lr MD Performed By: #### C DP, BMPX ####[facility] [address] [place], [place] [address])[phone] Director: Yordan Lr MD Basophils/100 WBC (Bld) 0 % Normal 0-2 [facility] Comment on above: Performed By: #### B MPX, CDP #### [address] [address] Research Staff Member: Yordan Lr MD Performed By: #### C DP, BMPX ####[address] [address] Lab Director: Yordan Lr MD Eosinophils (Bld) [#/Vol] 0.14 10*3/uL Normal 0.00-0.44 [facility] Comment on above: Performed By: #### B MPX, CDP #### [address] [address] Research Staff Member: Yordan Lr MD Performed By: #### C DP, BMPX ####[address] [address] Lab Director: Yordan Lr MD Eosinophils/100 WBC (Bld) 2 % Normal 1-4 [facility] Comment on above: Performed By: #### B MPX, CDP #### [address] [address] Research Staff Member: Yordan Lr MD Performed By: #### C DP, BMPX ####[address] [address] Lab Director: Yordan Lr MD Erythrocyte distribution width (RBC) [Ratio] 12.6 % Normal 11.8-14.4 [facility] Comment on above: Performed By: #### B MPX, CDP #### [address] [address] Research Staff Member: Yordan Lr MD Performed By: #### C DP, BMPX ####[address] [address] Lab Director: Yordan Lr MD Hematocrit (Bld) [Volume fraction] 37.9 % Normal 36.3-47.1 [facility] Comment on above: Performed By: #### B MPX, CDP #### [address] [address] Research Staff Member: Yordan Lr MD Performed By: #### C DP, BMPX ####[address] [phone] Director: Yordan Lr MD Hemoglobin (Bld) [Mass/Vol] 12.7 g/dL Normal 11.9-15.1 [facility] Comment on above: Performed By: #### B MPX, CDP #### [address] [address] Research Staff Member: Yordan Lr MD Performed By: #### C DP, BMPX ####[address] [phone] Director: Yordan Lr MD Immature granulocytes/100 WBC (Bld) 0 % Normal 0 [facility] Comment on above: Performed By: #### B MPX, CDP #### [address] [address] Research Staff Member: Yordan Lr MD Performed By: #### C DP, BMPX ####[address] [phone] Director: Yordan Lr MD Lymphocytes (Bld) [#/Vol] 1.04 10*3/uL Low 1.10-3.70 [facility] Comment on above: Performed By: #### B MPX, CDP #### [address] [address] Research Staff Member: Yordan Lr MD Performed By: #### C DP, BMPX ####[address] [phone] Director: Yordan Lr MD Lymphocytes/100 WBC (Bld) 18 % Low 24-43 [facility] Comment on above: Performed By: #### B MPX, CDP #### [address] [address] Research Staff Member: Yordan Lr MD Performed By: #### C DP, BMPX ####[address] [address] Lab Director: Yordan Lr MD MCH (RBC) [Entitic mass] 29.7 pg Normal 25.2-33.5 [facility] Comment on above: Performed By: #### B MPX, CDP #### [address] [address] Research Staff Member: Yordan Lr MD Performed By: #### C DP, BMPX ####[address] [phone] Director: Yordan Lr MD MCHC (RBC) [Mass/Vol] 33.5 g/dL Normal 28.4-34.8 [facility] Comment on above: Performed By: #### B MPX, CDP #### [address] [address] Research Staff Member: Yordan Lr MD Performed By: #### C DP, BMPX ####[address] [phone] Director: Yordan Lr MD MCV (RBC) [Entitic vol] 88.6 fL Normal 82.6-102.9 [facility] Comment on above: Performed By: #### B MPX, CDP #### [address] [address] Research Staff Member: Yordan Lr MD Performed By: #### C DP, BMPX ####[address] [address] Lab Director: Yordan Lr MD Monocytes (Bld) [#/Vol] 0.58 10*3/uL Normal 0.10-1.20 [facility] Comment on above: Performed By: #### B MPX, CDP #### [address] [address] Research Staff Member: Yordan Lr MD Performed By: #### C DP, BMPX ####[address] [phone] Director: Yordan Lr MD Monocytes/100 WBC (Bld) 10 % Normal 3-12 [facility] Comment on above: Performed By: #### B MPX, CDP #### [address] [address] Research Staff Member: Yordan Lr MD Performed By: #### C DP, BMPX ####[address] [phone] Director: Yordan Lr MD Neutrophil (Seg) 70 % High 36-65 [facility] Comment on above: Performed By: #### B MPX, CDP #### [address] [address] Research Staff Member: Yordan Lr MD Performed By: #### C DP, BMPX ####[address] [phone] Director: Yordan Lr MD NRBC Automated 0.0 per 100 WBC Normal 0.0 [facility] Comment on above: Performed By: #### B MPX, CDP #### [address] [address] Research Staff Member: Yordan Lr MD Performed By: #### C DP, BMPX ####[address] [phone] Director: Yordan Lr MD Platelet mean volume (Bld) [Entitic vol] 10.0 fL Normal 8.1-13.5 [facility] Comment on above: Performed By: #### B MPX, CDP #### [address] [address] Research Staff Member: Yordan Lr MD Performed By: #### C DP, BMPX ####[address] [phone] Director: Yordan Lr MD Platelets (Bld) [#/Vol] 161 10*3/uL Normal 138-453 [facility] Comment on above: Performed By: #### B MPX, CDP #### [address] [address] Research Staff Member: Yordan Lr MD Performed By: #### C DP, BMPX ####[address] [phone] Director: Yordan Lr MD RBC (Bld) [#/Vol] 4.28 10*6/uL Normal 3.95-5.11 [facility] Comment on above: Performed By: #### B MPX, CDP #### [address] [address] Research Staff Member: Yordan Lr MD Performed By: #### C DP, BMPX ####[address] [phone] Director: Yordan Lr MD WBC (Bld) [#/Vol] 5.9 10*3/uL Normal 3.5-11.3 [facility] Comment on above: Performed By: #### B MPX, CDP #### [address] [address] Research Staff Member: Yordan Lr MD Performed By: #### C DP, BMPX ####[facility] [address] [place] [address] Lab Director: Yordan Lr MD Drug Scr, Abuse, Uron 2021 Amphetamine(s),Ur Negative Normal NEG [facility] Comment on above: Result Comment: (Positive cutoff 1000 ng/mL) Performed By: #### U AX, RAMA #### [facility] [address] [place] [address] Research Staff Member: Yordan Lr MD Barbiturate(s),Ur Negative Normal NEG [facility] Comment on above: Result Comment: (Positive cutoff 200 ng/mL) Performed By: #### U AX, RAMA #### [facility] [address] [place] [address] Research Staff Member: Yordan Lr MD Benzodiazepine(s) Negative Normal NEG [facility] Comment on above: Result Comment: (Positive cutoff 200 ng/mL) Performed By: #### U AX, RAMA #### [facility] [address] [place] [address] Research Staff Member: Yordan Lr MD Cannabinoid(s),Ur Negative Normal NEG [facility] Comment on above: Result Comment: (Positive cutoff 50 ng/mL) Performed By: #### U AX, RAMA #### [facility] [address] [place] [address] Research Staff Member: Yordan Lr MD Cocaine Metabolite Negative Normal NEG [facility] Comment on above: Result Comment: (Positive cutoff 300 ng/mL) Performed By: #### U AX, RAMA #### [facility] [address] [place] [address] Research Staff Member: Yordan Lr MD Fentanyl, Urine Negative Normal NEG [facility] Comment on above: Result Comment: (Positive cutoff 5 ng/ml) Performed By: #### U AX, RAMA #### [facility] [address] [place] [address] Research Staff Member: Yordan Lr MD Interpretive Info Assay provides medical screening only. The absence of expected drug(s) and/or Normal [facility] Comment on above: Result Comment: meta bolite(s) may indicate diluted or adulterated urine, limitations of testing or timing of collection. Testing for legal purposes should be confirmed by another method. To request confirmation of test result, please call the lab within 7 days of sample submission. Performed By: #### U AX, RAMA #### [facility] [address] [place] [address] Research Staff Member: Yordan Lr MD Methadone Ql (U) Negative Normal NEG [facility] Comment on above: Result Comment: (Positive cutoff 300 ng/mL) Performed By: #### U AX, RAMA #### [facility] [address] [place] [address] Research Staff Member: Yordan Lr MD Opiate(s), Ur Negative Normal NEG [facility] Comment on above: Result Comment: (Positive cutoff 300 ng/mL) Performed By: #### U AX, RAMA #### [facility] [address] [place] [address] Research Staff Member: Yordan Lr MD Oxycodone, Urine Negative Normal NEG [facility] Comment on above: Result Comment: (Positive cutoff 100 ng/mL) Performed By: #### U AX, RAMA #### [facility] [address] [place] [address] Research Staff Member: Yordan Lr MD Phencyclidine, Ur Negative Normal NEG [facility] Comment on above: Result Comment: (Positive cutoff 25 ng/mL) Performed By: #### U AX, RAMA #### [facility] [address] [place] [address] Research Staff Member: Yordan Lr MD Hemoglobin A1Con 11-07-2022 Glucose [Mass/Vol] 120 mg/dL Normal [facility] Comment on above: Result Comment: The ADA and AACC recommend providing the estimated average glucose result to permit better patient understanding of their HBA1c result. Performed By: #### F T4, TSH, VD25, B12, ERTPF, GLYHGB, ALB ####[facility] [address] [place] [address] Lab Director: Yordan Lr MD Performed By: #### G LYHGB, ALB, ERTPF, B12, FT4, TSH, VD25 ####[facility] [address] [place] [address] Lab Director: Yordan Lr MD HbA1c (Bld) [Mass fraction] 5.8 % Normal 4.0-6.0 [facility] Comment on above: Performed By: #### F T4, TSH, VD25, B12, ERTPF, GLYHGB, ALB ####[facility] [address] [place] [address] Lab Director: Yordan Lr MD Performed By: #### G LYHGB, ALB, ERTPF, B12, FT4, TSH, VD25 ####[facility] [address] [place] [address] Lab Director: Yordan Lr MD Glucose [Mass/Vol] 120 mg/dL [facility] Comment on above: The ADA and AACC rec ommend providing the estimated average glucose result to permit better patient understanding of their HBA1c result. HbA1c (Bld) [Mass fraction] 5.8 % 4.0 - 6.0 % [facility] [facility] [employer] UA w/Reflex Cultureon 2021 Bilirubin, SemiQt,Ur Negative Normal NEG [facility] Comment on above: Performed By: #### U AX, RAMA #### [facility] [address] [place] [address] Research Staff Member: Yordan Lr MD Blood, Urine Negative Normal NEG [facility] Comment on above: Performed By: #### U AX, RAMA #### [facility] [employer] [address] [place] [address] Research Staff Member: Yordan Lr MD Clarity (U) Clear Normal CLEAR [facility] Comment on above: Performed By: #### U AX, RAMA #### [facility] [employer] [address] [place] [address] Research Staff Member: Yordan Lr MD Color (U) Yellow Normal YEL [facility] Comment on above: Performed By: #### U AX, RAMA #### [address] [address] Research Staff Member: Yordan Lr MD Comment Microscopic exam not performed based on chemical results unless requested in Normal [facility] Comment on above: Result Comment: orig inal order. Performed By: #### U AX, RAMA #### [address] [address] Research Staff Member: Yordan Lr MD Glucose Ql (U) Negative Normal NEG [facility] Comment on above: Performed By: #### U AX, RAMA #### [address] [address] Research Staff Member: Yordan Lr MD Ketones Ql (U) TRACE Abnormal NEG [facility] Comment on above: Performed By: #### U AX, RAMA #### [facility] [employer] [address] [place] [address] Research Staff Member: Yordan Lr MD Leukocyte esterase Test strip Ql (U) Negative Normal NEG [facility] Comment on above: Performed By: #### U AX, RAMA #### [facility] [employer] [address] [place] [address] Research Staff Member: Yordan Lr MD Nitrite,Ur Negative Normal NEG [facility] Comment on above: Performed By: #### U AX, RAMA #### [address] [address] Research Staff Member: Yordan Lr MD PH,Ur 6.5 Normal 5.0-8.0 [facility] Comment on above: Performed By: #### U AX, RAMA #### [address] [address] Research Staff Member: Yordan Lr MD Protein Ql (U) Negative Normal NEG [facility] Comment on above: Performed By: #### U AX, RAMA #### [address] [address] Research Staff Member: Yordan Lr MD Spec. [place],Ur 1.047 High 1.005-1.030 [facility] Comment on above: Performed By: #### U AX, RAMA #### [address] [address] Research Staff Member: Yordan Lr MD Urobilinogen,Ur Normal Normal NORM [facility] Comment on above: Performed By: #### U AX, RAMA #### [address] [address] Research Staff Member: Yordan Lr MD Albuminon 04-14-2022 Albumin [Mass/Vol] 4.1 g/dL Normal 3.5-5.2 [facility] Comment on above: Performed By: #### F T4, TSH, VD25, B12, ERTPF, GLYHGB, ALB #### [address] [address] Research Staff Member: Yordan Lr MD Performed By: #### G LYHGB, ALB, ERTPF, B12, FT4, TSH, VD25 #### [address] [address] Research Staff Member: Yordan Lr MD Albumin [Mass/Vol] 4.1 g/dL 3.5 - 5.2 g/dL [facility] CBC AUTO DIFFon 04-14-2022 BASO # 0.0 103/ul Normal 0.0-0.1 [facility] Comment on above: Performed By: #### C BC #### [facility] [address] [place] [address] Dr. Brii Humphries Basophils/100 WBC (Bld) 0.4 % Normal 0.2-2.0 [facility] Comment on above: Performed By: #### C BC #### [facility] [address] [place] [address] Dr. Brii Humphries EO # 0.2 103/ul Normal 0.0-0.7 [facility] Comment on above: Performed By: #### C BC #### [facility] [address] [place] [address] Dr. Brii Humphries Eosinophils/100 WBC (Bld) 2.0 % Normal 0.9-7.0 [facility] Comment on above: Performed By: #### C BC #### [facility] [address] [place] [address] Dr. Brii Humphries Hematocrit (Bld) [Volume fraction] 40.1 % Normal 36.0-48.0 [facility] Comment on above: Performed By: #### C BC #### [facility] [address] [place] [address] Dr. Brii Humphries Hemoglobin (Bld) [Mass/Vol] 13.1 g/dL Normal 12.0-16.0 [facility] Comment on above: Performed By: #### C BC #### [facility] [address] [place] [address] Dr. Brii Humphries IG # 0.02 10e3/ul Normal 0.00-0.03 [facility] Comment on above: Performed By: #### C BC #### [facility] [address] [place] [address] Dr. Brii Humphries IG % 0.3 % Normal 0.0-0.5 [facility] Comment on above: Performed By: #### C BC #### [facility] [address] [address] [address] Brii Humphries LYMPH # 1.1 103/ul Critically low 1.2-3.8 [facility] Comment on above: Performed By: #### C BC #### [facility] [address] [address] [address] Brii Humphries Lymphocytes/100 WBC (Bld) 15.0 % Critically low 20.5-60.0 [facility] Comment on above: Performed By: #### C BC #### [facility] [address] [place] [address] Dr. Brii Humphries MANUAL DIFF REQ NO Normal [facility] Comment on above: Performed By: #### C BC #### [facility] [address] [place] [address] Dr. Brii Humphries MCH (RBC) [Entitic mass] 28.8 pg Normal 26.7-34.0 [facility] Comment on above: Performed By: #### C BC #### [facility] [address] [place] [address] Dr. Brii Humphries MCHC (RBC) [Mass/Vol] 32.7 g/dL Normal 29.9-35.2 [facility] Comment on above: Performed By: #### C BC #### [facility] [address] [place] [address] Dr. Brii Humphries MCV (RBC) [Entitic vol] 88.1 fL Normal 81.0-99.0 [facility] Comment on above: Performed By: #### C BC #### [facility] [address] [place] [address] Dr. Brii Humphries MONO # 0.5 103/ul Normal 0.3-0.8 [facility] Comment on above: Performed By: #### C BC #### [facility] [address] [place] [address] Dr. Brii Humphries Monocytes/100 WBC (Bld) 6.6 % Normal 1.7-12.0 [facility] Comment on above: Performed By: #### C BC #### [facility] [address] [place] [address] Dr. Brii Humphries NEUT # 5.6 103/ul Normal 1.4-6.5 [facility] Comment on above: Performed By: #### C BC #### [facility] [address] [place] [address] Dr. Brii Humphries Neutrophils/100 WBC (Bld) 75.7 % Critically high 43.0-75.0 [facility] Comment on above: Performed By: #### C BC #### [facility] [address] [place] [address] Dr. Brii Humphries Platelet mean volume (Bld) [Entitic vol] 9.7 fL Normal 9.5-13.5 [facility] Comment on above: Performed By: #### C BC #### [facility] [address] [place] [address] Dr. Brii Humphries PLT 174 103/ul Normal 150-450 [facility] Comment on above: Performed By: #### C BC #### [facility] [address] [place] [address] Dr. Brii Humphries RBC 4.55 106/ul Normal 4.20-5.40 [facility] Comment on above: Performed By: #### C BC #### [facility] [address] [place] [address] Dr. Brii Humphries WBC 7.4 103/ul Normal 4.0-11.0 [facility] Comment on above: Performed By: #### C BC #### [facility] [address] [place] [address] CHEST ABDOMEN PELVIS W CO [...] Jesusita Quintanilla MD 04/14/22 Final result Normal [facility] CT [facility] WO CONon 2 CT [facility] WO CON EXAMINATION: CT [facility] WO CON, 04/14/2022 12:47 PM PST HISTORY: [...] SHAHZAD TOMAS Date: 2022-04-14 16:45 Normal [facility] CT [facility] WO CONon [...] FELIPA HOPPER Date: 2022-04-14 16:48 Normal [facility] CT HEAD WO CONon 04-14-2022 CT HEAD [...] FELIPA HOPPER Date: 2022-04-14 16:43 Normal [facility] CT HEAD WO CONTRASTon 2021 CT HEAD [...] Jayant Rodrigues MD 04/14/22 Final result Normal [facility] Acute left subdural hematoma overlying the parietooccipital lobes measuring up to 4 mm in thickness with no significant associated mass effect. Critical results were called by Dr. Jayant Martínez to Dr. Cain on 04/14/2022 at 8:16 p.m.. PN RIS CONSOLIDATED EXAMINATION: CT OF THE HEAD [...] of the visualized skull or soft tissues. [facility] Jayant Fernandez MD - 04/14/2022 EXAMINATION: [...] Dr. Cain on 04/14/2022 at 8:16 p.m.. [employer] Phone: Radiology Study observation (narrative) [employer] Phone: CT HEAD WO CONTRASTOrdered B y: Jayant Rodrigues on 04-14-2022 [employer] Work Phone: CT LUMBAR SPINE TRAUMA RECON [...] Jesusita Quintanilla MD 04/14/22 Final result Normal [facility] CT THORACIC SPINE TRAUMA REC ONSTRUCTIONon [...] Jesusita Quintanilla MD 04/14/22 Final result Normal [facility] Covid-19 PCR (CVDTB)on SARS-CoV-2 (COVID-19) RNA LI+probe Ql (Unsp spec) Not detected Normal NOT DETECTED [facility] Comment on above: Result Comment: When diagnostic [...] for this test is supported by the [place] of Health and Human Service's declaration that [...] longer be used). Performed By: #### [facility] #### [facility] [address] [address] [address] Brii Humphries DRUG SCREEN MULTI URINEon [...] 300 ng/mL) Oxycodone Screen, Ur Negative NEGATIVE [facility] Comment on above: (Positive cutoff 100 ng/mL) Phencyclidine, Urine Negative NEGATIVE [facility] [employer] Comment on above: (Positive cutoff 25 ng/mL) Test Information Assay provides medical screening only. The absence of expected drug(s) and/or metabolite(s) may indicate diluted or adulterated urine, limitations of testing or timing of collection. [employer] Comment on above: Testing for legal pu rposes should be confirmed by another method. To request confirmation of test result, please call the lab within 7 days of sample submission. [employer] No Panel Informationon 04-14 1. No acute [...] degenerative changes of the upper lumbar spine. [facility] RIS CONSOLIDATED Jesusita Quintanilla MD - [...] are likely hemangiomas. 3. Calcified uterine fibroids. [facility] [employer] Work Phone: [facility] [employer] [facility] Radiology Study observation (narrative) [facility] Work Phone: No Panel InformationOrdered By: Jesusita Quintanilla on 04-14-2022 [facility] [employer] Work Phone: PROF CHEM 8 (BAS METB)on Potassium [Moles/Vol] 4.1 mmol/L Normal 3.5-5.1 [facility] Comment on above: Performed By: #### B MP #### [facility] [place] [facility] [address] [address] [address] Brii Humphries Anion gap [Moles/Vol] 7.5 mmol/L Normal [facility] Comment on above: Performed By: #### B MP #### [facility] [place] [facility] [address] [address] [address] Brii Humphries Calcium [Mass/Vol] 10.6 mg/dL Critically high 8.5-10.1 [facility] Comment on above: Performed By: #### B MP #### [facility] [place] [facility] [address] [address] [address] Brii Humphries Chloride [Moles/Vol] 106 mmol/L Normal 98-107 [facility] [place] [facility] Comment on above: Performed By: #### B MP #### [facility] [place] [facility] [address] [address] [address] Brii Humphries CO2 [Moles/Vol] 28.6 mmol/L Normal 21.0-32.0 [facility] [place] [facility] Comment on above: Performed By: #### B MP #### [facility] [place] [facility] [address] [address] [address] Brii Humphries Creatinine [Mass/Vol] 0.90 mg/dL Normal 0.55-1.02 [facility] Comment on above: Performed By: #### B MP #### [facility] [place] [facility] [address] [address] [address] Brii Humphries EGFR-AF LIBERIAN >60 Normal >=60 [facility] [place] [facility] Comment on above: Performed By: #### B MP #### [facility] [place] [facility] [address] [address] [address] Brii Humphries EGFR-NON AF LIBERIAN =60 Normal >=60 [facility] Comment on above: Performed By: #### B MP #### [facility] [place] [facility] [address] [address] [address] Brii Humphries Glucose [Mass/Vol] 106 mg/dL Normal 74-106 [facility] Comment on above: Performed By: #### B MP #### [facility] [place] [facility] [address] [address] [address] Brii Humphries Sodium [Moles/Vol] 138 mmol/L Normal 136-145 [facility] Comment on above: Performed By: #### B MP #### [facility] [place] [facility] [address] [address] [address] Brii Humphries Urea nitrogen [Mass/Vol] 22.0 mg/dL Critically high 7.0-18.0 [facility] Comment on above: Performed By: #### B MP #### [facility] [place] [facility] [address] [address] [address] Brii Humphries Urea nitrogen/Creatinine [Mass ratio] 24.4 mg/mg Normal [facility] Comment on above: Performed By: #### B MP #### [facility] [place] [facility] [address] [address] [address] Brii Humphries PROTIMEon 04-14-2022 PT Coag (PPP) [Time] 10.9 s Normal 9.0-11.6 [facility] Comment on above: Performed By: #### P TT, PT #### [facility] [place] [facility] [address] [address] [address] rBii Humphries INR Coag (PPP) [Relative time] 1.01 {INR} Normal [facility] Comment on above: Performed By: #### P TT, PT #### [facility] [place] [facility] [address] [address] [address] Brii Humphries INR GUIDELINES SEE BELOW Normal [facility] Comment on above: Result Comment: RAMSEY RED INR: 2.0 - 3.0 CONDITIONS NOT LISTED BELOW 2.5 - 3.5 FOR PROSTHETIC HEART VALVE REPLACEMENT 2.5 - 3.5 RECURRENT THROMBOSIS Performed By: #### P TT, PT #### [facility] [place] [facility] [address] [place], [place] [address] Dr. Brii Humphries PTTon 04-14-2022 aPTT Coag (Bld) [Time] 29.1 s Normal 22.3-36.2 [facility] [place] [facility] Comment on above: Performed By: #### P TT, PT #### [facility] [place] [facility] [address] [place], [place] [address] Dr. Brii Humphries T4, Freeon 04-14-2022 Thyroxine, Free 1.18 ng/dL 0.93 - 1.70 ng/dL [facility] TROPONIN, HIGH SENSITIVITYon 04-14-2022 HSTROP 12.5 pg/mL Normal 4.0-51.3 [facility] Comment on above: Result Comment: CUT- OFF POINTS HAVE BEEN ESTABLISHED BASED ON THE FOURTH UNIVERSAL DEFINITIONS OF MYOCARDIAL INFARCTION. THE UPPER REFERENCE LIMIT (URL) OF TROPONIN, DEFINED THE 99TH PERCENTILE OF cTnI DISTRIBUTION IN A REFERENCE POPULATION, HAS BEEN CONFIRMED THE DECISION THRESHOLD FOR RI DIAGNOSIS. Performed By: #### H STROPN ####[facility] [place] [facility] [address] [place], [place] [address]SdDr. Brii Humphries TSHon 04-14-2022 TSH Qn 3.10 m[IU]/L [facility] TYPE AND SCREENon 04-14-2022 ABO/Rh Positive [facility] Arm Band Number [id number] [facility] Expiration Date 04/17/2022,2359 [facility] Thyroid Stim. Horm.on 2021 Thyroid Stim. Horm. 3.10 uIU/mL Normal 0.30-5.00 [facility] Comment on above: Performed By: #### F T4, TSH, VD25, B12, ERTPF, GLYHGB, ALB ####[facility] [address] [id number] [facility] Director: Yordan Lr MD Performed By: #### G LYHGB, ALB, ERTPF, B12, FT4, TSH, VD25 #### [facility] [address] [place], [place] [id number] Research Staff Member: Yordan Lr MD Thyroxine, Freeon 04-14-2022 Thyroxine, Free 1.18 ng/dL Normal 0.93-1.70 [facility] Comment on above: Performed By: #### F T4, TSH, VD25, B12, ERTPF, GLYHGB, ALB ####[employer] [address] [place], [place] [id number] [facility] Director: Yordan Lr MD Performed By: #### G LYHGB, ALB, ERTPF, B12, FT4, TSH, VD25 #### [facility] [address] [place], [place] [id number] Research Staff Member: Yordan Lr MD Trauma Panelon 6 Anion gap [Moles/Vol] 13 mmol/L 9 - 17 mmol/L [facility] [employer] aPTT Coag (Bld) [Time] 24.8 s [facility] [employer] Comment on above: IV Heparin Therapy Range: 48.6-77.8 Blood Bank Specimen BILL FOR SERVICES PERFORMED [facility] [employer] Carboxyhemoglobin 5.6 % High 0 - 5 % [facility] [employer] Comment on above: Reference Range: Non-Smokers 0-2% Average Smoker 2-4% Heavy Smoker <10% Chloride [Moles/Vol] 103 mmol/L 98 - 10 7 mmol/L [facility] [employer] CO2 [Moles/Vol] 17 mmol/L Low 20 - 31 mmol/L [facility] [employer] Creatinine [Mass/Vol] 0.71 mg/dL 0.50 - 0.90 mg/dL [employer] Ethanol [Mass/Vol] mg/dL NINF - 10 mg/dL [employer] [facility] Ethanol percent <0.010 NINF - 0.010 % [facility] FIO2 INFORMATION NOT PROVIDED [facility] [employer] GFR/1.73 sq M.predicted MDRD (S/P/Bld) [Vol rate/Area] - PINF [facility] Comment on above: Effective Mar 11, [...] 104 mg/dL High 70 - 99 mg/dL [facility] hCG Qual Negative NEGATIVE [facility] [employer] Comment on above: Specimens with hCG l evels near the threshold of the test (25 mIU/mL) may give a negative or indeterminate result. In such cases, another test should be performed with a new specimen in 48-72 hours. If early is suspected clinically in this setting, correlation with quantitative serum b-hCG level is suggested. [facility] has confirmed the use of plasma for this test. This has not been cleared or approved by the U.S. Food and Drug Administration. The FDA has determined that such clearance is not necessary. HCO3 (Bld) [Moles/Vol] 20.1 mmol/L Low 24 - 30 mmol/L [facility] Hematocrit (Bld) [Volume fraction] 40.9 % 36.3 - 47.1 % [facility] [employer] Hemoglobin (Bld) [Mass/Vol] 13.6 g/dL 11.9 - 15.1 g/dL [facility] INR Coag (Bld) [Relative time] 1.0 {INR} [facility] Comment on above: Therapeutic Range: Moderate Anticoagulant Intensity: INR = 2.0-3.0 High Anticoagulant Intensity: INR = 2.5-3.5 Interpretation and review of laboratory results Abnormal [facility] [employer] MCH (RBC) [Entitic mass] 29.6 pg 25.2 - 33.5 pg [facility] [employer] MCHC (RBC) [Mass/Vol] 33.3 g/dL 28.4 - 34.8 g/dL [facility] MCV (RBC) [Entitic vol] 89.1 fL 82.6 - 102.9 fL [facility] Negative Base Excess, Uri 1.3 mmol/L 0.0 - 2.0 mmol/L [facility] NRBC Automated 0.0 0.0 per 100 WBC [facility] Oxygen saturation in Blood 97.0 % High 60.0 - 85.0 % [facility] pCO2, Uri 26.1 Low [facility] pH, Uri 7.499 High 7.320 - 7.420 [facility] Platelet distribution width (Bld) [Ratio] 12.5 % 11.8 - 14.4 % [facility] Platelet mean volume (Bld) [Entitic vol] 9.8 fL 8.1 - 13.5 fL [facility] Platelets (Bld) [#/Vol] 162 10*3/uL [facility] pO2, Uri 74.5 High [facility] Pt Temp 37.0 [facility] RBC (Bld) [#/Vol] 4.59 10*6/uL 3.95 - 5.1 1 m/uL [facility] Sodium [Moles/Vol] 133 mmol/L Low 135 - 144 mmol/L [facility] Urea nitrogen (BldV) [Mass/Vol] 19 mg/dL 8 - 23 mg/dL [facility] WBC (Bld) [#/Vol] 7.8 10*3/uL [facility] Trauma Profileon 04-14-2022 Anion gap [Moles/Vol] 13 mmol/L Normal 9-17 [facility] Comment on above: Performed By: #### F T4, TSH, VD25, B12, ERTPF, GLYHGB, ALB ####[employer] [address] [place] [address] Lab Director: Yordan Lr MD Performed By: #### G LYHGB, ALB, ERTPF, B12, FT4, TSH, VD25 #### [employer] [facility] [address] [place] [address] Research Staff Member: Yordan Lr MD Chloride [Moles/Vol] 103 mmol/L Normal 98-107 [facility] Comment on above: Performed By: #### F T4, TSH, VD25, B12, ERTPF, GLYHGB, ALB ####[address] [address] [facility] Director: Yordan Lr MD Performed By: #### G LYHGB, ALB, ERTPF, B12, FT4, TSH, VD25 #### [facility] [employer] [address] [place] [address] Research Staff Member: Yordan Lr MD CO2 [Moles/Vol] 17 mmol/L Low 20-31 [facility] Comment on above: Performed By: #### F T4, TSH, VD25, B12, ERTPF, GLYHGB, ALB ####[address] [address] Lab Director: Yordan Lr MD Performed By: #### G LYHGB, ALB, ERTPF, B12, FT4, TSH, VD25 #### [address] [address] Research Staff Member: Yordan Lr MD Creatinine [Mass/Vol] 0.71 mg/dL Normal 0.50-0.90 [facility] Comment on above: Performed By: #### F T4, TSH, VD25, B12, ERTPF, GLYHGB, ALB ####[address] [address] Lab Director: Yordan Lr MD Performed By: #### G LYHGB, ALB, ERTPF, B12, FT4, TSH, VD25 #### [facility] [employer] [address] [place] [address] Research Staff Member: Yordan Lr MD Ethanol [Mass/Vol] mg/dL Normal <10 [facility] Comment on above: Performed By: #### F T4, TSH, VD25, B12, ERTPF, GLYHGB, ALB ####[address] [address] Lab Director: Yordan Lr MD Performed By: #### G LYHGB, ALB, ERTPF, B12, FT4, TSH, VD25 #### [address] [address] Research Staff Member: Yordan Lr MD Ethanol percent <0.010 Normal <0.010 [facility] Comment on above: Performed By: #### F T4, TSH, VD25, B12, ERTPF, GLYHGB, ALB ####[address] [address] Lab Director: Yordan Lr MD Performed By: #### G LYHGB, ALB, ERTPF, B12, FT4, TSH, VD25 #### [address] [address] Research Staff Member: Yordan Lr MD GFR/1.73 sq M.predicted among non-blacks MDRD (S/P/Bld) [Vol rate/Area] mL/min/{1.73_m2} Normal >60 [facility] Comment on above: Result Comment: Effective [...] T4, TSH, VD25, B12, ERTPF, GLYHGB, ALB ####[address] [address] Lab Director: Yordan Lr MD Performed By: #### G LYHGB, ALB, ERTPF, B12, FT4, TSH, VD25 #### [address] [place] [address] Research Staff Member: Yordan Lr MD Glucose [Mass/Vol] 104 mg/dL High 70-99 [facility] Comment on above: Performed By: #### F T4, TSH, VD25, B12, ERTPF, GLYHGB, ALB ####[facility] [address] [place] [address] Lab Director: Yordan Lr MD Performed By: #### G LYHGB, ALB, ERTPF, B12, FT4, TSH, VD25 #### [facility] [address] [place] [address] Research Staff Member: Yordan Lr MD Potassium [Moles/Vol] 4.1 mmol/L Normal 3.7-5.3 [facility] Comment on above: Performed By: #### F T4, TSH, VD25, B12, ERTPF, GLYHGB, ALB ####[facility] [address] [place] [address] Lab Director: Yordan Lr MD Performed By: #### G LYHGB, ALB, ERTPF, B12, FT4, TSH, VD25 #### [facility] [address] [place] [address] Research Staff Member: Yordan Lr MD Sodium [Moles/Vol] 133 mmol/L Low 135-144 [facility] Comment on above: Performed By: #### F T4, TSH, VD25, B12, ERTPF, GLYHGB, ALB ####[facility] [address] [place] [address] Lab Director: Yordan Lr MD Performed By: #### G LYHGB, ALB, ERTPF, B12, FT4, TSH, VD25 #### [address] [address] Research Staff Member: Yordan Lr MD Urea nitrogen [Mass/Vol] 19 mg/dL Normal 8-23 [facility] Comment on above: Performed By: #### F T4, TSH, VD25, B12, ERTPF, GLYHGB, ALB ####[address] [address] Lab Director: Yordan Lr MD Performed By: #### G LYHGB, ALB, ERTPF, B12, FT4, TSH, VD25 #### [facility] [employer] [address] [place] [address] Research Staff Member: Yordan Lr MD Body Temp. 37.0 Normal [facility] Comment on above: Performed By: #### F T4, TSH, VD25, B12, ERTPF, GLYHGB, ALB ####[address] [address] [facility] Director: Yordan Lr MD Performed By: #### G LYHGB, ALB, ERTPF, B12, FT4, TSH, VD25 #### [facility] [employer] [address] [place] [address] Research Staff Member: Yordan Lr MD Carboxy Hgb 5.6 % High 0-5 [facility] Comment on above: Result Comment: Reference Range: Non-Smokers 0-2% Average Smoker 2-4% Heavy Smoker <10% Performed By: #### F T4, TSH, VD25, B12, ERTPF, GLYHGB, ALB ####[facility] [address] [place] [address] Lab Director: Yordan Lr MD Performed By: #### G LYHGB, ALB, ERTPF, B12, FT4, TSH, VD25 #### [facility] [employer] [address] [place] [address] Research Staff Member: Yordan Lr MD FIO2 INFORMATION NOT PROVIDED [facility] Comment on above: Performed By: #### F T4, TSH, VD25, B12, ERTPF, GLYHGB, ALB ####[address] [address] Lab Director: Yordan Lr MD Performed By: #### G LYHGB, ALB, ERTPF, B12, FT4, TSH, VD25 #### [address] [address] Research Staff Member: Yordan Lr MD HCO3 (Bld) [Moles/Vol] 20.1 mmol/L Low 24-30 [facility] Comment on above: Performed By: #### F T4, TSH, VD25, B12, ERTPF, GLYHGB, ALB ####[address] [address] [facility] Director: Yordan Lr MD Performed By: #### G LYHGB, ALB, ERTPF, B12, FT4, TSH, VD25 #### [address] [address] Research Staff Member: Yordan Lr MD Negative Base Excess 1.3 mmol/L Normal 0.0-2.0 [facility] Comment on above: Performed By: #### F T4, TSH, VD25, B12, ERTPF, GLYHGB, ALB ####[address] [address] Lab Director: Yordan Lr MD Performed By: #### G LYHGB, ALB, ERTPF, B12, FT4, TSH, VD25 #### [address] [address] Research Staff Member: Yordan Lr MD Oxygen saturation in Blood 97.0 % High 60.0-85.0 [facility] Comment on above: Performed By: #### F T4, TSH, VD25, B12, ERTPF, GLYHGB, ALB ####[address] [address] Lab Director: Yordan Lr MD Performed By: #### G LYHGB, ALB, ERTPF, B12, FT4, TSH, VD25 #### [facility] [address] [place] [address] Research Staff Member: Yordan Lr MD pCO2 26.1 mm Hg Low 39-55 [facility] Comment on above: Performed By: #### F T4, TSH, VD25, B12, ERTPF, GLYHGB, ALB ####[facility] [address] [place] [address] Lab Director: Yordan Lr MD Performed By: #### G LYHGB, ALB, ERTPF, B12, FT4, TSH, VD25 #### [facility] [employer] [address] [place] [address] Research Staff Member: Yordan Lr MD pH (Bld) 7.499 [pH] High 7.320-7.420 [facility] Comment on above: Performed By: #### F T4, TSH, VD25, B12, ERTPF, GLYHGB, ALB ####[facility] [address] [place] [address] Lab Director: Yordan Lr MD Performed By: #### G LYHGB, ALB, ERTPF, B12, FT4, TSH, VD25 #### [facility] [employer] [address] [place] [address] Research Staff Member: Yordan Lr MD pO2 74.5 mm Hg High 30-50 [facility] Comment on above: Performed By: #### F T4, TSH, VD25, B12, ERTPF, GLYHGB, ALB ####[address] [address] Lab Director: Yordan Lr MD Performed By: #### G LYHGB, ALB, ERTPF, B12, FT4, TSH, VD25 #### [facility] [employer] [address] [place] [address] Research Staff Member: Yordan Lr MD HCG Screen, Blood Negative Normal NEG [facility] Comment on above: Result Comment: Spec imens with hCG levels near the threshold of the test (25 mIU/mL) may give a negative or indeterminate result. In such cases, another test should be performed with a new specimen in 48-72 hours. If early is suspected clinically in this setting, correlation with quantitative serum b-hCG level is suggested. [facility] has confirmed the use of plasma for this test. This has not been cleared or approved by the U.S. Food and Drug Administration. The FDA has determined that such clearance is not necessary. Performed By: #### F T4, TSH, VD25, B12, ERTPF, GLYHGB, ALB ####[address] [id number] [facility] Director: Yordan Lr MD Performed By: #### G LYHGB, ALB, ERTPF, B12, FT4, TSH, VD25 #### [place] [id number] Research Staff Member: Yordan Lr MD aPTT Coag (Bld) [Time] 24.8 s Normal 20.5-30.5 [facility] Comment on above: Result Comment: IV Heparin Therapy Range: 48.6-77.8 Performed By: #### F T4, TSH, VD25, B12, ERTPF, GLYHGB, ALB ####[address] [id number] [facility] Director: Yordan Lr MD Performed By: #### G LYHGB, ALB, ERTPF, B12, FT4, TSH, VD25 #### [place] [id number] Research Staff Member: Yordan Lr MD INR Coag (PPP) [Relative time] 1.0 {INR} Normal [facility] Comment on above: Result Comment: Therapeutic Range: Moderate Anticoagulant Intensity: INR = 2.0-3.0 High Anticoagulant Intensity: INR = 2.5-3.5 Performed By: #### F T4, TSH, VD25, B12, ERTPF, GLYHGB, ALB ####[address] [address] [facility] Director: Yordan Lr MD Performed By: #### G LYHGB, ALB, ERTPF, B12, FT4, TSH, VD25 #### [address] [address] Research Staff Member: Yordan Lr MD PT Coag (PPP) [Time] 10.9 s Normal 9.1-12.3 [facility] Comment on above: Performed By: #### F T4, TSH, VD25, B12, ERTPF, GLYHGB, ALB ####[address] [address] [facility] Director: Yordan Lr MD Performed By: #### G LYHGB, ALB, ERTPF, B12, FT4, TSH, VD25 #### [address] [address] Research Staff Member: Yordan Lr MD Erythrocyte distribution width (RBC) [Ratio] 12.5 % Normal 11.0-15.0 [facility] Comment on above: Performed By: #### F T4, TSH, VD25, B12, ERTPF, GLYHGB, ALB ####[address] [address] [facility] Director: Yordan Lr MD Performed By: #### G LYHGB, ALB, ERTPF, B12, FT4, TSH, VD25 #### [address] [address] Research Staff Member: Yordan Lr MD Performed By: #### C BC #### [facility] [place] [facility] [address] [place] [address] Dr. Brii Humphries Hematocrit (Bld) [Volume fraction] 40.9 % Normal 36.3-47.1 [facility] Comment on above: Performed By: #### F T4, TSH, VD25, B12, ERTPF, GLYHGB, ALB ####[address] [address] [facility] Director: Yordan Lr MD Performed By: #### G LYHGB, ALB, ERTPF, B12, FT4, TSH, VD25 #### [place] [address] Research Staff Member: Yordna Lr MD Hemoglobin (Bld) [Mass/Vol] 13.6 g/dL Normal 11.9-15.1 [facility] Comment on above: Performed By: #### F T4, TSH, VD25, B12, ERTPF, GLYHGB, ALB ####[place] [address] [facility] Director: Yordan Lr MD Performed By: #### G LYHGB, ALB, ERTPF, B12, FT4, TSH, VD25 #### [place] [address] Research Staff Member: Yordan Lr MD MCH (RBC) [Entitic mass] 29.6 pg Normal 25.2-33.5 [facility] Comment on above: Performed By: #### F T4, TSH, VD25, B12, ERTPF, GLYHGB, ALB ####[place] [address] [facility] Director: Yordan Lr MD Performed By: #### G LYHGB, ALB, ERTPF, B12, FT4, TSH, VD25 #### [place] [id number] Research Staff Member: Yordan Lr MD MCHC (RBC) [Mass/Vol] 33.3 g/dL Normal 28.4-34.8 [facility] Comment on above: Performed By: #### F T4, TSH, VD25, B12, ERTPF, GLYHGB, ALB ####[address] [address] Lab Director: Yordan Lr MD Performed By: #### G LYHGB, ALB, ERTPF, B12, FT4, TSH, VD25 #### [place] [address] Research Staff Member: Yordan Lr MD MCV (RBC) [Entitic vol] 89.1 fL Normal 82.6-102.9 [facility] Comment on above: Performed By: #### F T4, TSH, VD25, B12, ERTPF, GLYHGB, ALB ####[place] [address] [facility] Director: Yordan Lr MD Performed By: #### G LYHGB, ALB, ERTPF, B12, FT4, TSH, VD25 #### [place] [address] Research Staff Member: Yordan Lr MD NRBC Automated 0.0 per 100 WBC Normal 0.0 [facility] Comment on above: Performed By: #### F T4, TSH, VD25, B12, ERTPF, GLYHGB, ALB ####[place] [address] Lab Director: Yordan Lr MD Performed By: #### G LYHGB, ALB, ERTPF, B12, FT4, TSH, VD25 #### [place] [address] Research Staff Member: Yordan Lr MD Platelet mean volume (Bld) [Entitic vol] 9.8 fL Normal 8.1-13.5 [facility] Comment on above: Performed By: #### F T4, TSH, VD25, B12, ERTPF, GLYHGB, ALB ####[address] [place] [address] Lab Director: Yordan Lr MD Performed By: #### G LYHGB, ALB, ERTPF, B12, FT4, TSH, VD25 #### [address] [address] Research Staff Member: Yordan Lr MD Platelets (Bld) [#/Vol] 162 10*3/uL Normal 138-453 [facility] Comment on above: Performed By: #### F T4, TSH, VD25, B12, ERTPF, GLYHGB, ALB ####[address] [address])[phone] Director: Yordan Lr MD Performed By: #### G LYHGB, ALB, ERTPF, B12, FT4, TSH, VD25 #### [address] [address] Research Staff Member: Yordan Lr MD RBC (Bld) [#/Vol] 4.59 10*6/uL Normal 3.95-5.11 [facility] Comment on above: Performed By: #### F T4, TSH, VD25, B12, ERTPF, GLYHGB, ALB ####[address] [address] Lab Director: Yordan Lr MD Performed By: #### G LYHGB, ALB, ERTPF, B12, FT4, TSH, VD25 #### [address] [address] Research Staff Member: Yordan Lr MD WBC (Bld) [#/Vol] 7.8 10*3/uL Normal 3.5-11.3 [facility] Comment on above: Performed By: #### F T4, TSH, VD25, B12, ERTPF, GLYHGB, ALB ####[address] [address] Lab Director: Yordan Lr MD Performed By: #### G LYHGB, ALB, ERTPF, B12, FT4, TSH, VD25 #### [facility] [address] [place] [address] Research Staff Member: Yordan Lr MD Blood Bank BILL FOR SERVICES PERFORMED Normal [facility] Comment on above: Performed By: #### F T4, TSH, VD25, B12, ERTPF, GLYHGB, ALB ####[facility] [place] [address] [facility] Director: Yordan Lr MD Performed By: #### G LYHGB, ALB, ERTPF, B12, FT4, TSH, VD25 #### [facility] [address] [place] [address] Research Staff Member: Yordan Lr MD Type + Screenon 04-14-2022 Type + Screen Sample Expiration 04/17/2022,2359 Arm Band Number [id number] ABO/Rh(D) A POSITIVE Antibody Screen NEGATIVE Normal [facility] Comment on above: Performed By: #### T YS #### [facility] [place] [address] Research Staff Member: Yordan Lr MD Performed By: #### T YS ####[facility] [place] [address] [id number] Lab Director: Yordan Lr MD Urinalysis with Reflex to Cu ltureon 04-14-2022 Bilirubin Urine Negative NEGATIVE [facility] Color, UA Yellow Yellow [facility] Glucose, Ur Negative NEGATIVE [facility] Interpretation and review of laboratory results Abnormal [facility] Ketones Ql (U) TRACE Abnormal NEGATIVE [facility] Leukocyte esterase Test strip Ql (U) Negative NEGATIVE [facility] Nitrite, Urine Negative NEGATIVE [facility] pH, UA 6.5 5.0 - 8.0 [facility] Protein, UA Negative NEGATIVE [facility] Specific [place], UA 1.047 High 1.005 - 1.030 [facility] Turbidity UA Clear Clear [facility] Urinalysis Comments Microscopic exam not performed based on chemical results unless requested in original order. [facility] Urine Hgb Negative NEGATIVE [facility] Urobilinogen, Urine Normal Normal [facility] Vitamin B12on 04-14-2022 Cobalamin (Vitamin B12) [Mass/Vol] 721 pg/mL Normal 232-1245 [facility] Comment on above: Performed By: #### F T4, TSH, VD25, B12, ERTPF, GLYHGB, ALB ####[facility] [place], [place] [id number] Lab Director: Yordan Lr MD Performed By: #### G LYHGB, ALB, ERTPF, B12, FT4, TSH, VD25 #### [facility] [address] [place], [place] [id number] Research Staff Member: Yordan Lr MD Cobalamin (Vitamin B12) [Mass/Vol] 721 pg/mL 232 - 1245 pg/mL [facility] Vitamin D 25 Hydroxyon 04-14 Vit D, 25-Hydroxy 33.6 ng/mL 29.9 - PIN F ng/mL [facility] Comment on above: Reference Range: Vitamin D status Range Deficiency <20 ng/mL Mild Deficiency 20-30 ng/mL Sufficiency 30-100 ng/mL Toxicity >100 ng/mL [facility] Vitamin D 25 OHon 04-14-2022 Vitamin D 25 [place] 33.6 ng/mL Normal >29.9 [facility] Comment on above: Result Comment: Reference Range: Vitamin D status Range Deficiency <20 ng/mL Mild Deficiency 20-30 ng/mL Sufficiency 30-100 ng/mL Toxicity >100 ng/mL Performed By: #### F T4, TSH, VD25, B12, ERTPF, GLYHGB, ALB ####[employer] [address] [place], [place] [id number] Lab Director: Yordan Lr MD Performed By: #### G LYHGB, ALB, ERTPF, B12, FT4, TSH, VD25 ####[facility] [address] [id number] lab Director: Yordan Lr MD XR HAND [...] MANUEL KOCH Date: 2022-04-14 16:53 Normal [facility] [place] [facility] PTH INTACTon 04-11-2022 PTH, Intact 37 pg/mL Normal 15-65 [facility] [place] [facility] Comment on above: Performed By: #### P THINT #### [facility] [place] [facility] [address] [address] [address] Brii Humphries CBC AUTO DIFFon 04-09-2022 BASO # 0.0 103/ul Normal 0.0-0.1 [facility] [place] [facility] Comment on above: Performed By: #### C BC ####[facility] [place] [facility] [address] [address]Dr. Brii Humphries Basophils/100 WBC (Bld) 0.6 % Normal 0.2-2.0 [facility] [place] [facility] Comment on above: Performed By: #### C BC ####[facility] [place] [facility] [address] [address]Dr. Brii Humphries EO # 0.2 103/ul Normal 0.0-0.7 [facility] [place] [facility] Comment on above: Performed By: #### C BC ####[facility] [place] [facility] [address] [address]DrChi Humphries Eosinophils/100 WBC (Bld) 4.4 % Normal 0.9-7.0 [facility] [place] [facility] Comment on above: Performed By: #### C BC ####[facility] [place] [facility] [address] [place], [place] [address]Dr. Brii Humphries Erythrocyte distribution width (RBC) [Ratio] 12.7 % Normal 11.0-15.0 [facility] [place] [facility] Comment on above: Performed By: #### C BC ####[facility] [place] [facility] [address] [place], [place] [address]Dr. Brii Humphries Hematocrit (Bld) [Volume fraction] 40.5 % Normal 36.0-48.0 [facility] [place] [facility] Comment on above: Performed By: #### C BC ####[facility] [place] [facility] [address] [place], [place] [address]Dr. Brii Humphries Hemoglobin (Bld) [Mass/Vol] 13.0 g/dL Normal 12.0-16.0 [facility] [place] [facility] Comment on above: Performed By: #### C BC ####[facility] [place] [facility] [address] [place], [place] [address]Dr. Brii Humphries IG # 0.01 10e3/ul Normal 0.00-0.03 [facility] [place] [facility] Comment on above: Performed By: #### C BC ####[facility] [place] [facility] [address] [place], [place] [address]Dr. Carijesse Humphries IG % 0.2 % Normal 0.0-0.5 [facility] [place] [facility] Comment on above: Performed By: #### C BC ####[facility] [place] [facility] [address] [place], [place] [address]Dr. Brii Humphries LYMPH # 1.2 103/ul Normal 1.2-3.8 [facility] [place] [facility] Comment on above: Performed By: #### C BC ####[facility] [place] [facility] [address] [place], [place] [address]Dr. Carijesse Humphries Lymphocytes/100 WBC (Bld) 24.3 % Normal 20.5-60.0 [facility] [place] [facility] Comment on above: Performed By: #### C BC ####[facility] [place] [facility] [address] [place], [place] [address]Dr. Brii Humphries MANUAL DIFF REQ NO Normal [facility] Comment on above: Performed By: #### C BC ####[facility] [place] [facility] [address] [place], [place] [address]Dr. Brii Humphries MCH (RBC) [Entitic mass] 28.7 pg Normal 26.7-34.0 [facility] [place] [facility] Comment on above: Performed By: #### C BC ####[facility] [place] [facility] [address] [address]Dr. Brii Humphries MCHC (RBC) [Mass/Vol] 32.1 g/dL Normal 29.9-35.2 [facility] [place] [facility] Comment on above: Performed By: #### C BC ####[facility] [place] [facility] [address] [address]Dr. Brii Yandel MCV (RBC) [Entitic vol] 89.4 fL Normal 81.0-99.0 [facility] [place] [facility] Comment on above: Performed By: #### C BC ####[facility] [place] [facility] [address] [address]Dr. Brii Yandel MONO # 0.4 103/ul Normal 0.3-0.8 [facility] [place] [facility] Comment on above: Performed By: #### C BC ####[facility] [place] [facility] [address] [address]Dr. Carijesse Humphries Monocytes/100 WBC (Bld) 7.8 % Normal 1.7-12.0 [facility] [place] [facility] Comment on above: Performed By: #### C BC ####[facility] [place] [facility] [address] [address]Dr. Brii Humphries NEUT # 3.1 103/ul Normal 1.4-6.5 [facility] [place] [facility] Comment on above: Performed By: #### C BC ####[facility] [place] [facility] [address] [address]Dr. Carijesse Humphries Neutrophils/100 WBC (Bld) 62.7 % Normal 43.0-75.0 [facility] [place] [facility] Comment on above: Performed By: #### C BC ####[facility] [place] [facility] [address] [address]Dr. Brii Yandel Platelet mean volume (Bld) [Entitic vol] 10.1 fL Normal 9.5-13.5 [facility] [place] [facility] Comment on above: Performed By: #### C BC ####[facility] [place] [facility] [address] [place] [id number]. Brii Humphries PLT 199 103/ul Normal 150-450 [facility] [place] [facility] Comment on above: Performed By: #### C BC ####[facility] [place] [facility] [address] [address]Dr. Brii Humphries RBC 4.53 106/ul Normal 4.20-5.40 [facility] [place] [facility] Comment on above: Performed By: #### C BC ####[facility] [place] [facility] [address] [place] [address] [address]Dr. Brii Humphries WBC 5.0 103/ul Normal 4.0-11.0 [facility] [place] [facility] Comment on above: Performed By: #### C BC ####[facility] [place] [facility] [address] [place], [place] [address]Dr. Brii Humphries PROF CHEM 8 (BAS METB)on Anion gap [Moles/Vol] 9.9 mmol/L Normal [facility] Comment on above: Performed By: #### T RICH, BMP ####[facility] [place] [facility] [address] [place], [place] [address]Dr. Brii Humphries Calcium [Mass/Vol] 10.3 mg/dL Critically high 8.5-10.1 [facility] Comment on above: Performed By: #### T RICH, BMP ####[facility] [place] [facility] [address] [place], [place] [address]Dr. Brii Humphries Chloride [Moles/Vol] 105 mmol/L Normal 98-107 [facility] [place] [facility] Comment on above: Performed By: #### T RICH, BMP ####[facility] [place] [facility] [address] [place], [place] [address]Dr. Brii Humphries CO2 [Moles/Vol] 31.8 mmol/L Normal 21.0-32.0 [facility] Comment on above: Performed By: #### T RICH, BMP ####[facility] [place] [facility] [address] [address]Dr. Brii Humphries Creatinine [Mass/Vol] 0.80 mg/dL Normal 0.55-1.02 [facility] Comment on above: Performed By: #### T RICH, BMP ####[facility] [place] [facility] [address] [place] [id number]. Brii Humphries EGFR-AF LIBERIAN >60 Normal >=60 [facility] [place] [facility] Comment on above: Performed By: #### T SH, BMP ####[facility] [place] [facility] [address] [place], [place] [address]Xl. Brii Humphries EGFR-NON AF LIBERIAN >60 Normal >=60 [facility] Comment on above: Performed By: #### T RICH, BMP ####[facility] [place] [facility] [address] [place] [id number]. Brii Humphries Glucose [Mass/Vol] 109 mg/dL Critically high 74-106 [facility] Comment on above: Performed By: #### T RICH, BMP ####[facility] [place] [facility] [address] [place] [address]Dr. Brii Humphries Potassium [Moles/Vol] 4.7 mmol/L Normal 3.5-5.1 [facility] Comment on above: Performed By: #### T RICH, BMP ####[facility] [place] [facility] [address] [place] [address]Dr. Brii Humphries Sodium [Moles/Vol] 142 mmol/L Normal 136-145 [facility] Comment on above: Performed By: #### T RICH, BMP ####[facility] [place] [facility] [address] [place] [address]Dr. Brii Humphries Urea nitrogen [Mass/Vol] 22.0 mg/dL Critically high 7.0-18.0 [facility] Comment on above: Performed By: #### T RICH, BMP ####[facility] [place] [facility] [address] [place] [id number]. Brii Humphries Urea nitrogen/Creatinine [Mass ratio] 27.5 mg/mg Normal [facility] Comment on above: Performed By: #### T RICH, BMP ####[facility] [place] [facility] [address] [place], [place] [address]Dr. Brii Humphries TSHon 04-09-2022 TSH 2.719 uIU/mL Normal 0.358-3.740 [facility] Comment on above: Performed By: #### T , [facility] ####[facility] [place] [facility] [address] [place], [place] [address]Ma. Brii Humphries Willian 11-26-2021 CNPN Telephone (INTMLN) AYANA ALVES ([id number]) 1940 F Date Time Provider Department 11/26/21 [...] 81 mg by mouth once daily. - ncortvm-bolgaoasp-xx tamin D3 500 mg(1,250mg) -200 unit per [...] Status:Closed by HAVEN GR on 11/27/21 [facility] 1 25 DIHYDROXYon 10-04 Calcitriol(1,25 di-OH Vit D) 91.6 pg/mL Critically high 19.9-79.3 [facility] [place] [facility] Comment on above: Performed By: #### V EVH263 ####[facility] [place] [facility] [address] [place], [place] [address]JxChi Humphries US URI DOP LEG LTon 10-03-19 [...] by: MANUEL HAYWOOD Date: 2021-10-02 16:46 Normal [facility] FT3on 03-16-2020 FT3 4.04 pg/mL Normal 2.45-5.93 [facility] Comment on above: Performed By: #### 4 500, 4510, 4520 #### [facility] Unless Otherwise Noted [address] [facility] [address] [place] [address] / COLA #4724/CLIA # [id number] FT4on 03-16-2020 Free T4 [Mass/Vol] 0.97 ng/dL Normal 0.78-2.44 [facility] Comment on above: Performed By: #### 4 500, 4510, 4520 #### [facility] Unless Otherwise Noted [address] [facility] [address] [place] [address] / COLA #4724/CLIA # [id number] TSHon 03-16-2020 TSH Qn 1.36 uIU/ml Normal 0.47-4.68 [facility] Comment on above: Performed By: #### 4 500, 4510, 4520 #### [facility] Unless Otherwise Noted [address] [address] / COLA #4724/CLIA # [id number] Vital Signs Date Time Vital Sign Value Performing Clinician Facility 09-18-2023 14: Body height 152.4 cm [facility] 09-18-2023 14: Body mass index (BMI) [Ratio] 24.4 kg/m2 [facility] 09-18-2023 14:03 Body weight 56.81 kg [facility] 09-18-2023 14:03040 Diastolic blood pressure 72 mm[Hg] [facility] 09-18-2023 14:03-0400 Heart rate 87 /min [facility] 09-18-2023 14:03-0400 Systolic blood pressure 118 mm[Hg] [facility] 07-10-2023 13:05-0500 Body height 157.5 cm Werner Nolasco DPM Work Phone: [facility] 07-10-2023 13:05-0500 Body mass index (BMI) [Ratio] 22.13 kg/m2 Werner Geronimo DPM Work Phone: [facility] 07-10-2023 13:05-0500 Body weight 54.88 kg Werner Nolasco DPM Work Phone: [facility] 06-30-2023 09:30-0500 Body height 152.4 cm Jessica Maxwell Other [facility] 06-30-2023 09:30-0500 Body mass index (BMI) [Ratio] 24.02 kg/m2 Jessica Maxwell Other [facility] Other 06-30-2023 09:30-0500 Body weight 55.79 kg Jessica Maxwell Other [facility] 06-30-2023 09:30-0500 Diastolic blood pressure 77 mm[Hg] Jessica Maxwell Other [facility] 06-30-2023 09:30-0500 SaO2% (BldA) [Mass fraction] 97 % Jessica Maxwell Other [facility] Other 06-30-2023 09:30-0500 Systolic blood pressure 134 mm[Hg] Jessica Maxwell Other [facility] 06-23-2023 13:30-0500 Body height 152.4 cm Jessica Maxwell Other [facility] 06-23-2023 13:30-0500 Body mass index (BMI) [Ratio] 24.02 kg/m2 Jessica Maxwell Other [employer] Other 06-23-2023 13:30-0500 Body weight 55.79 kg Jessica Maxwell Other [facility] 06-23-2023 13:30-0500 Diastolic blood pressure 76 mm[Hg] Jessica Maxwell Other [facility] 06-23-2023 13:30-0500 SaO2% (BldA) [Mass fraction] 100 % Jessica Maxwell Other [facility] [employer] Other 06-23-2023 13:30-0500 Systolic blood pressure 116 mm[Hg] Jessica Maxwell Other [facility] 02-24-2023 13:45-0400 Body height 152.4 cm Jessica Maxwell Other [facility] Other 02-24-2023 13:45-0400 Body mass index (BMI) [Ratio] 22.85 kg/m2 Jessica Maxwell Other [facility] Other 02-24-2023 13:45-0400 Body weight 53.07 kg Jessica Maxwell Other [facility] Other 02-24-2023 13:45-0400 Diastolic blood pressure 80 mm[Hg] Jessica Maxwell Other [facility] Other 02-24-2023 13:45-0400 Systolic blood pressure 121 mm[Hg] Jessica Maxwell Other [facility] Other 08-21-2022 15:00-0400 Body height 152.4 cm Jeb Salas Other [facility] Other 08-21-2022 15:00-0400 Body mass index (BMI) [Ratio] 22.85 kg/m2 Jeb Salas Other [facility] Other 08-21-2022 15:00-0400 Body weight 53.07 kg Jeb Salas Other [facility] Other 04-15-2022 12:00-0500 Body temperature 98.2 [degF] Edin Boo MD Work Phone: [employer] 04-15-2022 12:00-0500 Diastolic blood pressure 74 mm[Hg] Edin Boo MD Work Phone: [employer] 04-15-2022 12:00-0500 Heart rate 61 /min Edin Boo MD Work Phone: [employer] 04-15-2022 12:00-0500 SaO2% (BldA) [Mass fraction] 99 % Edin Boo MD Work Phone: [employer] 04-15-2022 12:00-0500 Systolic blood pressure 133 mm[Hg] Edin Boo MD Work Phone: [employer] 04-15-2022 04:15-0500 Respiratory rate 12 /min Edin Boo MD Work Phone: [employer] 04-14-2022 23:30-0500 Body height 154.9 cm Edin Boo MD Work Phone: [employer] 04-14-2022 23:30-0500 Body mass index (BMI) [Ratio] 21.66 kg/m2 Edin Boo MD Work Phone: [employer] 04-14-2022 23:30-0500 Body weight 52 kg Edin Boo MD Work Phone: [employer] Encounters Encounter Date Encounter Type Care Provider Facility Start: 02-18-2024 End: 02-18-2024 ambulatory ELVIE PARR [facility] Start: 02-04-2024 End: 02-04-2024 ambulatory JESSICA MAXWELL [facility] Start: 01-08-2024 End: 02-08-2024 ambulatory [facility] Start: 12-22-2023 End: 01-08-2024 ambulatory [facility] Start: 12-01-2023 End: 12-02-2023 Emergency department patient visit BO BARRETT [facility] Start: 11-10-2023 End: 11-10-2023 ambulatory WERNER NOLASCO Not Available Start: 10-29-2023 End: 10-29-2023 ambulatory [facility] Start: 10-10-2023 End: 10-10-2023 ambulatory [facility] Start: 09-24-2023 End: 09-24-2023 ambulatory [facility] Start: 09-18-2023 End: 09-18-2023 ambulatory [facility] Work Phone: Start: 09-18-2023 End: 09-18-2023 Patient encounter procedure [facility] Work Phone: Start: 08-29-2023 End: 08-29-2023 ambulatory [facility] Start: 08-28-2023 Refill Deepika Castillo Work Phone: [facility] Comment on above: Postprocedural hypot hyroidism; Postoperative hypothyroidism Start: 08-22-2023 Non-patient / Non-visit [facility] Work Phone: Start: 07-24-2023 Refill Wilmer Doe MD Work Phone: [facility] Comment on above: Postprocedural hypot hyroidism; Postoperative hypothyroidism Start: 07-14-2023 End: 07-14-2023 ambulatory Jessica Maxwell Other [facility] Other Start: 07-14-2023 Telephone encounter Jessica Maxwell [facility] Start: 07-10-2023 Bamboo flowsheet Werner Salazar er DPM Work Phone: [facility] Start: 07-10-2023 Bamboo flowsheet Werner Salazar er DPM Work Phone: [facility] Start: 07-10-2023 End: 07-10-2023 Office outpatient visit 15 minutes Werner Nolasco DPM Work Phone: [facility] Comment on above: Dermatophytosis of n ail (Primary Dx); Dystrophic nail; Pain around toenail Start: 07-10-2023 End: 07-10-2023 ambulatory WERNER NOLASCO Not Available Start: 06-30-2023 End: 06-30-2023 ambulatory Jessica Maxwell Other [employer] Other Start: 06-30-2023 Office outpatient vi sit 15 minutes Jessica Maxwell [facility] Start: 06-30-2023 End: 06-30-2023 [facility] procedure [facility] Start: 06-27-2023 End: 06-27-2023 ambulatory Jessica Maxwell Other [facility] Other Start: 06-27-2023 Telephone encounter Jessica Maxwell [facility] Start: 06-23-2023 End: 06-23-2023 ambulatory Jessica Maxwell Other [employer] Other Start: 06-23-2023 Office outpatient vi sit 15 minutes Jessica Maxwell [facility] Start: 06-23-2023 End: 06-23-2023 Patient encounter procedure [facility] Work Phone: Start: 06-04-2023 End: 06-04-2023 ambulatory Jeb Salas Other [facility] Other Start: 06-04-2023 Telephone encounter Jeb Salas [facility] Start: 05-13-2023 End: 05-13-2023 ambulatory Jessica Maxwell Other [facility] Other Start: 05-13-2023 Telephone encounter Jessica Maxwell [facility] Start: 05-08-2023 End: 05-08-2023 ambulatory Jessica Maxwell Other [facility] Other Start: 05-08-2023 Telephone encounter Jessica Maxwell [facility] Start: 04-02-2023 End: 04-02-2023 ambulatory Jessica Maxwell Other [facility] Other Start: 04-02-2023 Telephone encounter Jessica Maxwell [facility] Start: 03-26-2023 End: 03-26-2023 ambulatory Jessica Maxwell Other [facility] Other Start: 03-26-2023 Telephone encounter Jessica Maxwell [facility] Start: 03-11-2023 End: 03-11-2023 ambulatory Jessica Maxwell Other [facility] Other Start: 03-11-2023 Telephone encounter Jessica Maxwell [facility] Start: 02-24-2023 End: 02-24-2023 ambulatory Jessica Maxwell Other [facility] Other Start: 02-24-2023 Office outpatient vi sit 15 minutes Jessica Maxwell [facility] Start: 01-22-2023 End: 01-22-2023 ambulatory Jessica Maxwell Other [facility] Other Start: 01-22-2023 Telephone encounter Jessica Maxwell [facility] Start: 12-20-2022 End: 12-20-2022 ambulatory Jessica Maxwell Other [facility] Other Start: 12-20-2022 Telephone encounter Jessica Maxwell [facility] Start: 09-24-2022 ambulatory JEB SALAS Facility: Start: 09-09-2022 End: 09-09-2022 ambulatory Jeb Salas Other [facility] Other Start: 09-09-2022 Office outpatient vi sit 15 minutes Jeb Gtzley [facility] Start: 08-21-2022 End: 08-21-2022 ambulatory Jeb Richard Ginna Facility:[facility] Start: 08-21-2022 Office outpatient vi sit 15 minutes Jeb Gtzley [facility] Start: 08-21-2022 End: 08-21-2022 ambulatory DO Jeb Salas Work Phone: [facility] Work Phone: Start: 08-21-2022 End: 08-21-2022 Patient encounter procedure DO Jeb Salas Work Phone: [facility] Start: 08-19-2022 End: 08-19-2022 ambulatory Jessica Maxwell Other [facility] Other Start: 08-19-2022 Telephone encounter Jessica Maxwell [facility] Start: 07-29-2022 End: 07-29-2022 ambulatory Jeb Ginna Other [facility] Other Start: 07-29-2022 Telephone encounter Jeb Salas [facility] Start: 06-21-2022 End: 06-21-2022 ambulatory Jessica Maxwell Other [employer] Other Start: 06-21-2022 Telephone encounter Jessica Maxwell [facility] Start: 06-20-2022 End: 06-20-2022 ambulatory Jessica Maxwell Other [facility] Other Start: 06-20-2022 Telephone encounter Jessica Maxwell [facility] Start: 06-09-2022 End: 07-20-[address] JESSICA MAXWELL Facility: Start: 04-23-2022 End: 04-26-2022 ambulatory VIVIAN MARISOL [facility] Start: 04-14-2022 End: 04-14-2022 ambulatory UNKNOWN PROVIDER Facility:[facility] Start: 04-14-2022 End: 04-15-2022 Evaluation and management of inpatient MITALI Feliciano [facility] Start: 04-14-2022 End: 04-15-2022 Evaluation and management of inpatient Edin Boo MD Work Phone: [facility] Comment on above: Subdural hematoma (P rimary Dx) Start: 04-14-2022 End: 04-14-2022 ambulatory SHRUTHI GALVAN . Facility:[facility] Start: 04-14-2022 Emergency department patient visit MITALI Feliciano MD [facility] Start: 04-09-2022 End: 04-10-[address] JESSICA MAXWELL Facility:[facility] Start: 04-05-2022 End: 06-08-[address] JESSICA MAXWELL Facility:[facility] Start: 04-03-2022 Adult health examination Ratna Maxwell Other [facility] Other Start: 04-03-2022 Gynecological examin ation normal Jessica Maxwell Other [facility] Other Start: 01-10-[address] JAYANT Catalan ty:[facility] Start: 11-26-2021 Telephone encounter [facility] (Historica l) [facility] Comment on above: colonoscopy question s Start: 10-05-2021 End: 10-05-2021 ambulatory Jeb Salas Other [facility] Other Start: 10-05-2021 Office outpatient vi sit 15 minutes [facility] Start: 10-02-2021 End: 10-03-[address] JESSICA MAXWELL Facility:[facility] Procedures Date Procedure Procedure Detail Performing Clinician Start: 02-04-2024 Follow-up visit Follow-up YOEL VELASCO Start: 08-21-2022 Plain X-ray of left hip DO Jeb Salas Work Phone: Start: 08-21-2022 Plain X-ray of left femur DO Jeb Salas Work Phone: Start: 04-15-2022 BASIC METABOLIC PANE L W/ REFLEX TO MG FOR LOW K Vivianfrancine Mora DO Work Phone: Start: 04-15-2022 Blood count complete auto&auto difrntl wbc Vivian Mora DO Work Phone: Start: 04-14-2022 Drug tst prsmv instr mnt chem analyzers pr date Lionel Hidalgo MD Work Phone: Start: 04-14-2022 Urnls dip stick/tabl et rgnt auto w/o microscopy Lionel Hidalgo MD Work Phone: Start: 04-14-2022 Antibody screen Edin Boo MD Work Phone: Start: 04-14-2022 CT LUMBAR SPINE TRAU MA RECONSTRUCTION Lionel Hidalgo MD Work Phone: Start: 04-14-2022 CT THORACIC SPINE TR AUMA RECONSTRUCTION Lionel Hidalgo MD Work Phone: Start: 04-14-2022 Ct thorax w/contrast material Lionel Hidalgo MD Work Phone: Start: 04-14-2022 Ct head/brain w/o co ntrast material Lionel Hidalgo MD Work Phone: Start: 04-14-2022 Blood typing serologic abo Edin Boo MD Work Phone: Start: 04-14-2022 Albumin serum plasma /whole blood Edin Boo MD Work Phone: Start: 04-14-2022 TRAUMA PANEL Edin Boo MD Work Phone: Start: 10-18-2021 Adult depression scr eening assessment Wilmer Doe MD Work Phone: Start: 02-09-2020 Adult depression scr eening assessment [facility] (Historical) Start: 05-24-2013 General examination of patient Jessica Maxwell Other Depression screening Jessica Maxwell Other Screening for malign ant neoplasm of breast Jessica Maxwell Other Viral screening Jessica Maxwell Other Plan of Treatment Date Care Activity Detail Author Start: 05-02-2024 Tobacco Screening Tobacco Screening [facility] Start: 02-07-2024 Adult BMI Screening Adult BMI Screen ing [facility] Start: 11-10-2023 End: 11-10-2023 Patient encounter procedure 11/10/2023 1:30 PM EDT Office Visit [facility] [address] [place] [phone] Werner Nolasco DPM [address] [facility] [place], [place] [id number] [facility] Start: 09-24-2023 End: 09-24-2023 Patient encounter procedure 09/24/2023 10:00 AM EDT Office Visit [facility] [address] [place] [address] Deepika Garcia MD [address] [place] [address] [facility] Start: 08-29-2023 End: 08-29-2023 Patient encounter procedure 08/29/2023 11:00 AM EDT Appointment [facility] DEXA [address] [place] [phone] [facility] Start: 07-10-2023 End: 07-10-2023 Patient encounter procedure 07/10/2023 1:15 PM EST Office Visit [facility] [address] [place] [phone] Werner Nolasco DPM [address] [place], [place] [phone] Arrived [facility] Comment on above: Arrived Start: 05-03-2023 DIABETES SCREEN DIABETES SCREEN [facility] Start: 02-07-2023 Influenza vaccination [facility] Start: 10-18-2022 Depression Screening Depression Scre ening [facility] Start: 10-18-2022 Fall Risk Screening Fall Risk Screen ing [facility] Start: 04-24-2022 End: 04-24-2022 Patient encounter procedure 04/24/2022 Office Visit Neurosurgery Ozzy Flower Dwight, RENAL DIALYSIS TECHNICIAN - CIRCUS RIDER [address] [facility] [address] [place] [address] [facility] Start: 02-07-2022 Influenza vaccination INFLUENZ A (Season Ended) [facility] Start: 01-07-2022 Influenza vaccination Flu vaccine (# 1) [facility] Start: 06-09-2021 ADVANCE DIRECTIVE DISCUSSION ADVANCE DIRECTIVE DISCUSSION [facility] Start: 02-08-2021 Adult depression screening assessment DEPRESSION SCREENING [facility] Start: 2006 BONE DENSITY BONE DENSITY [facility] Start: 2006 Pneumococcal 65+ yea rs Vaccine (1 - PCV) Pneumococcal 65+ years Vaccine (1 - PCV) [facility] Start: 2006 Pneumococcal Vaccine : 65+ Years (1 - PCV) Pneumococcal Vaccine: 65+ Years (1 - PCV) [facility] Start: 2006 PNEUMOCOCCAL: 65+ (1 - PCV) PNEUMOCOCCAL: 65+ (1 - PCV) [facility] Start: 1991 Administration of varicella zoster vaccine Zoster (Shingles) Vaccine (1 of 2) [facility] Start: 1991 Shingles vaccine (1 of 2) Shingles vaccine (1 of 2) [facility] Start: 1991 SHINGRIX VACCINE (1 of 2) SHINGRIX VACCINE (1 of 2) [facility] Start: 02-23-1960 DTaP,Tdap and Td Vaccines (1 - Tdap) DTaP,Tdap and Td Vaccines (1 - Tdap) [facility] Start: 02-23-1960 DTaP/Tdap/Td vaccine (1 - Tdap) DTaP/Tdap/Td vaccine (1 - Tdap) [facility] Start: 02-23-1960 Urine microalbumin profile DTAP,TDAP,TD (1 - Tdap) [facility] Start: 1953 Depression Screen Depression Screen [facility] Start: 1946 COVID-19 VACCINE (#1) COVID-19 VACCI NE (#1) [facility] Start: 1941 COVID-19 Vaccine (#1) COVID-19 Vacci ne (#1) [facility] Start: 1941 Medicare Annual Well ness Visit Medicare Annual Well[facility] [employer] End: 04-15-2022 EKG 12 Lead EKG 12 Lead ECG Routine One Time for 1 Occurrences starting 04/15/2022 until 04/15/2022 [employer] Phone: Comment on above: One Time for 1 Occur rences starting 04/15/2022 until 04/15/2022 Oxygen therapy [[facility] Data Set] Initiate Oxygen Therapy Protocol Respiratory Care Routine As Needed until discontinued starting 04/14/2022 [employer] Phone: Comment on above: As Needed until disc ontinued starting 04/14/2022 End: 04-14-2022 Speech and language therapy regime Speech language pathology evaluation COMMISSIONER OF RELOCATION SERVICES Routine One Time for 1 Occurrences starting 04/14/2022 until 04/14/2022 [employer] Phone: Comment on above: One Time for 1 Occur rences starting 04/14/2022 until 04/14/2022 End: 05-25-2022 Spirometry panel Incentive spirometry Respiratory Care Routine Every 1hr while awake for 41 Days starting 04/14/2022 until 05/25/2022 [employer] Phone: Comment on above: Every 1hr while awak e for 41 Days starting 04/14/2022 until 05/25/2022 End: 04-14-2022 TRAUMA PANEL TRAUMA PANEL Lab STAT One Time for 1 Occurrences starting 04/14/2022 until 04/14/2022 [employer] Phone: Comment on above: One Time for 1 Occur rences starting 04/14/2022 until 04/14/2022 Immunizations Immunization Date Immunization Notes Care Provider Liz fernandez 03-16-2013 tetanus and diphther ia toxoids, adsorbed, preservative free, for adult use (5 Lf of tetanus toxoid and 2 Lf of diphtheria toxoid) Jessica Alissa Other [facility] Payers Date Payer Category Payer Self-pay [id number] 2019 Unknown MMO MMO MEDICARE SUPPLEMENT [id number] 2019-Present [phone] [address] [place] [address] Indemnity [id number]. [id number] 2019 Unknown [id number]. 1.13.693.2.7.3. [id number] 2006 Medicare MEDICARE MEDICAR E A AND B [id number] 2006-Present [phone] [address] [address] [place] [address] Medicare [id number]. [id number] 2006 Medicare [id number]. 1.13.693.2.7.3. [id number] 1959 Medicare [id number] 2.16.840.1.516558.19 1959 Unknown [id number] 2.16.840.1.937906.19 1941 Unknown [id number] 2.16.840.1.045982.3.579.2.175 1941 Unknown [id number] 2.16.840.1.951600.3.579.2.176 1941 Unknown [id number] 2.16.840.1.068624.3.579.2.593 1941 Unknown [id number] 2.16.840.1.993539.3.579.2.593 1941 Unknown [id number] 2.16.840.1.390219.3.579.2.593 1941 Unknown [id number] 2.16.840.1.483847.3.579.2.593 1941 Unknown [id number] 2.16.840.1.292299.3.579.2.593 1941 Unknown [id number] 2.16.840.1.666525.3.579.2.593 1941 Unknown [id number] 2..840.1.358474.3.579.2.593 1941 Unknown [id number] 2.16.840.1.829467.3.579.2.1286 1941 Unknown [id number] 2.16.840.1.153292.3.579.2.1259 1941 Unknown [id number] 2.16.840.1.175461.3.579.2.1259 1941 Unknown [id number] 2..840.1.627758.3.579.2.1286 1941 Unknown [id number] 2.16.840.1.961870.3.579.2.1286 1941 Unknown [id number] 2.16.840.1.374838.3.579.2.1286 1941 Unknown [id number] 2.16.840.1.634794.3.579.2.1286 1941 Unknown [id number] 2.16.840.1.396561.3.579.2.1286 1941 Unknown [id number] 2.16.840.1.127553.3.579.2.1286 1941 Unknown [id number] 2.16.840.1.095879.3.579.2.1286 1941 Unknown [id number] 2.16.840.1.367525.3.579.2.128 1941 Unknown [id number] 2.16.840.1.394309.3.579.2.128 1941 Unknown [id number] 2.16.840.1.137263.3.579.2.128 1941 Unknown [id number] 2.16.840.1.770248.3.579.2.1285 1941 Unknown [id number] 2.16840.1.795467.3.579.2.1285 1941 Unknown [id number] 2.840.1.351411.3.579.2.1286 Unknown [id number] 2.16.840.1.679397.3.579.2.531 Social History Date Type Detail Facility Start: 04-18-2014 End: 02-06-2023 Tobacco smoking status NHIS Ex-smoker [facility] End: 06-09-1967 History of tobacco use Current smoker [facility] Start: 04-18-2014 End: 02-06-2023 Tobacco use and exposure Smokeless tobacco non-user [facility] Start: 05-03-2020 End: 05-02-2023 Alcohol intake Current drinker of alcohol (finding) [facility] Start: 05-03-2020 End: 06-20-2020 Alcohol intake [facility] Start: 01-12-2020 History SDOH Alcohol Frequency 2 [facility] Start: 01-12-2020 History SDOH Alcohol Std Drinks 1 [facility] Start: 1940 Sex Assigned At Female [facility] Start: 06-20-2020 End: 03-27-2023 Sex Assigned At [facility] End: 06-09-1967 History of tobacco use Cigarette Smoker [facility] [employer] Work Phone: Start: 04-15-2022 Tobacco Comment Smoker when she was 17 years old to 23 years old [employer] Phone: Start: 04-15-2022 Alcohol Comment one glass of wine every 4 months - social [employer] Phone: Start: 1940 Sex Assigned At Not on file [employer] Phone: Start: 04-05-2022 End: 04-15-2022 Exposure to SARS-CoV-2 (event) Not sure [employer]: Start: 03-26-2023 Alcohol Comment 1-2 drinks less than monthly in the past year, Caffeine intake: 1-2 cups per day, coffee [facility] Adolescent depressio n screening assessment 0 [employer] Start: 02-28-2020 Alcohol Comment Occasional [employer] Start: 07-07-2019 Gender identity Identifies as female gender (finding) [employer] Start: 07-07-2019 Sexual orientation Heterosexual (finding) [employer] Medical Equipment Procedure Code Equipment Code Equipment Origin al Text Equipment Identifier Dates Ring Annuloplast Contour 3d 26 - [id number] - [id number] Start: 10-30-2018 Lead Capsure Fix Novus 5076-45 - [id number] - [id number] Start: 11-04-2018 Cardiac pacemaker, device (physical object) ([id number]) [facility] - [id number] - [id number] Start: 11-04-2018 Goals Date Patient Goal Desired Activity /State Personal health goal Comment on above: Formatting of this n ote might be different from the original. Evaluation of progress towards goal: plan is home with home health Clinical Notes 10-05-2021 to 02-18-2024 Werner Nolasco DPM - 07/10/2023 1:15 PM ESTPatient Instructions Note Date & Type Note Facility 02-18-2024 Note XR SHOULDER RT MIN 2 VWS Procedure: Right shoulder radiographs performed Number of views:3 History:Pain Comparison:12/01/2023 Findings: There is a healing fracture of the surgical which is unchanged in position when compared to the prior study. There are no acute fractures or dislocations seen. No osteolytic or osteoblastic lesions are identified. Impression: Healing fracture right shoulder Finalized by Sharla Elmore DO on 02/18/2024 5:59 PM [facility] 07-10-2023 History of Present illness Narrative Images from the original note [...] surgery for valve repair CATARACT EXTRACTION COLONOSCOPY Salam, 2012, , CT ANGIOGRAM ABDOMEN PELVIS 10/23/2018 CT ANGIOGRAM [...] Werner Nolasco DPM documented in this encounter [facility] 07-10-2023 Instructions Werner Nolasco DPM - 07/10/2023 1:15 PM EST Topical care measures as noted documented in this encounter [facility] 06-30-2023 Evaluation note Encounter Date Diagnosis Assessment Notes Jun, Other chest pain (ICD-10 - R07.89) Pt agrees to stress test and cxr. Recommened she move up her appt w cardiology. If pain increases or becomes more severe go to ER or call 911 [facility] Other 01-15-2024 Evaluation note* Encounter Date Diagnosis Assessment Notes Treatment Notes Treatment Clinical Notes Jun, Screening mammogram, encounter for (ICD-10 - Z12.31) Jun, Rhomboid muscle pain (ICD-10 - M79.18) Pt given HO on home stretches for this area. Discussed massotherapy and PT as well. [facility] Other 10-03-2023 Evaluation note* Encounter Date Diagnosis Assessment Notes Treatment Notes Treatment Clinical Notes Mar, Hypercalcemia (ICD-1 0 - E83.52) [facility] Other 09-18-2023 Evaluation note* Encounter Date Diagnosis Assessment Notes Treatment Notes Treatment Clinical Notes Feb, Chronic fatigue (ICD-10 - R53.82) Discussed differential. Discussed stress and 's health issues. Assess for anemia and metabolic abnormalities. Feb, Acquired hypothyroidism (ICD-10 - E03.9) Overdue for labs - chronic problem Feb, Bruising (ICD-10 - T14.8XXA) Discussed differential. Will obtain recent labs from [place]. [facility] Other 07-14-2023 Evaluation note* Encounter Date Diagnosis Assessment Notes Treatment Notes Treatment Clinical Notes Dec, Vitamin D deficiency (ICD-10 - E55.9) [facility] Other 04-03-2023 Evaluation note* Encounter Date Diagnosis [...] left hip, subsequent encounter (ICD-10 - S76.012D) [facility] Other 03-15-2023 Evaluation note* Encounter Date Diagnosis [...] as documented in the electronic medical record. [facility] Other 02-20-2023 Evaluation note* Encounter Date Diagnosis Assessment Notes Treatment Notes Treatment Clinical Notes Jul, Chronic fatigue (ICD-10 - R53.82) Jul, Essential (primary) hypertension (ICD-10 - I10) [facility] Other 11-07-2022 History of Present illness Narrative* Mabel Guerrero, OT - 04/15/2022 4:27 PM EST Occupational Therapy Facility/Department: [facility] CAR 2- STEPDOWN Occupational Therapy Initial Assessment [...] Comment Comments: RN ok'd pt for OT arsenio this date. Pt agreeable to session and [...] Ambulation Assistance: Independent Transfer Assistance: Independent Active Waiter/Waitress Second Class: Yes Mode of Transportation: SUV, Truck Occupation: [...] 1:20 PM EST Speech Language Pathology Facility/Department: [facility] CAR 2- STEPDOWN Initial Speech/Language/Cognitive Assessment [...] [facility] from standing height while walking her dog. No LOC. Pt found to have small L parietal SDH on CT while at [place]. CT face and c-spine were negative. Pt [...] recommended. Verbal education provided. Recommendations: Recommendations Requires COMMISSIONER OF RELOCATION SERVICES Intervention: No Patient Education: Yes Patient Education Response: Verbalizes understanding Plan: Individuals consulted Consulted and agree with results and recommendations: Patient Goals: Patient/family involved in developing goals and treatment plan: Yes Subjective: Social/Functional History Lives With: Spouse Type of Home: House Active Waiter/Waitress Second Class: Yes Mode of Transportation: Car Vision Vision: [...] 11:55 Minutes 13 Completed by: Rekha Carrillo Extractor Operator Helper Clinician Cosigned By: Nargis Fernandez M.S.CCC/COMMISSIONER OF RELOCATION SERVICES * Mehreen Bradshaw PT - 04/15/2022 11:55 AM EST Physical Therapy Facility/Department: [facility] CAR 2- STEPDOWN Physical Therapy Initial Assessment Name: Ayana Alves : 1940 Date of Service: 04/15/2022 82 y/o trauma transfer from [place], mechanical fall SH, on Plavix, outside hospital [...] ambulate 200' no device, steadily. 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 She reports xrays at [place] showed no broken bones. Objective: Patient Vitals for the past 8 hrs: BP Temp Temp src Pulse Resp SpO2 Height Weight 04/14/22 2345 -- -- -- 61 -- -- -- -- 11/06/22 2330 135/70 -- Oral 62 16 96 % [...] 7:54 PM EST SPIRITUAL CARE DEPARTMENT - [facility] Emergency/Trauma Note PATIENT NAME: Ayana Alves Shift date: 04/14/22 Shift day: Friday Shift # 2 Room # Name: Ayana Alves Age: 82 y.o. Gender: female Hoahaoism: Caodaism Place of sabianism: [facility] Trauma/Incident type: Adult Trauma Priority Admit Date & Time: 04/14/2022 6:56 PM TRAUMA NAME: xx[place]leton ADVANCE DIRECTIVES IN CHART? No NAME OF DECISION MAKER: Bryan Alves, spouse or Kiya, daughter PATIENT/EVENT DESCRIPTION: Ayana Alves is a 82 y.o. female who arrived via [facility] as an Adult Trauma Priority; patientsustained injuries from a fall. Pt to be admitted to . SPIRITUAL [id number]: Solar Project Engineer provided a ministry of presence and made space for sharing. Solar Project Engineer learned that patient receives support and comfort from her family and her yossi. Patient shared she belongs to [employer] in [place] and has a large bible study group praying forher. Patient shared that her , Bryan, has early Alzheimer's and is home resting. Patient appeared to be calm and seemed to be coping well. Solar Project Engineer connected patient's daughter, Kiya, with patient in ED16 (patient was originally in Trauma B), and extended hospitality. Patient and patient's daughter expressed gratitude for diamond setter apprentice presence. PATIENT BELONGINGS: With patient ANY BELONGINGS OF SIGNIFICANT VALUE NOTED: Not noted or handled by diamond setter apprentice REGISTRATION STAFF NOTIFIED? Yes WHAT IS YOUR SPIRITUAL CARE PLAN FOR THIS PATIENT?: Solar Project Engineer support will continue to be available as needed. 04/14/221952 Encounter Summary Service Provided For: Patient;Family Referral/Consult From: Multi-disciplinary team Support System Children;Spouse;Temple/yossi community Last Encounter 04/14/22 Complexity of Encounter Low Begin Time 1857 End Time 1957 Total Time Calculated 60 min Crisis Type Trauma Assessment/Intervention/Outcome Assessment Calm;Coping Intervention Active listening;Sustaining Presence/Ministry of presence Outcome Comfort;Expressed Gratitude Plan and Referrals Plan/Referrals Continue Support (comment) . Spiritual Care Department [facility] [phone] [facility] Work Phone: [phone]) 740-767211-07-2022 Hospital Discharge instructions* Discharge Instructions* Tiffanie Peck [...] the [facility] at [phone]. This center offers additional therapy, support groups, education and other resources at no cost. The center is located at [address] [place] [address]. You can also visit www.[facility].org for more information. General questions or concerns may be called to the trauma nurse line at [phone] and please leave a message. Trauma is a life-threatening condition. Your doctor will want to closely monitor you. Be sure to goto all of your appointments. * Discharge Instr - Activity* Rosario Thomas RN - 04/15/2022 3:23 PM EST As tolerated. * Attachments The following attachments cannot be sent through Care Everywhere. * Acute Concussion (Brazilian) * Head Injury: Closed: General Info (Brazilian) documented in [facility] Work Phone: [phone]) 862-973108-09-2022 NoteThis is a Telehealth Appointment *This visit [...] a normal screening. Patient was referred to [facility] by PCP on 05/03/2020 due to [...] melena. Patient is followed by Jayant Vasques; coffee attendant, anticoagulated with Plavix. Review of Systems Constitutional: [...] PA-C Electronically Signed by (more content not included)...[facility]: Order Comment: [id number] Miscellaneous Notes* Telephone Encounter - Haven Gr RN - 11/26/2021 2:11 PM EDT -Pt Verified by Name and Date of -pt calling to ask if there is an age limit for colonoscopies. Pt PCP not with [facility]. -advised discuss with PCP and seek referral for ANNE eval. [facility] note* Encounter Date Diagnosis Assessment [...] in office today. Prior medical notes from [place] ED and history have been reviewed. At [...] as documented in the electronic medical record. [facility] Other Evaluation note* Diagnosis Subdural hematoma- Primary Subdural hemorrhage Subdural hematoma Subdural hemorrhage documented in this encounter [facility] [employer] Work Phone: evaluation noteNo InformationNort [employer] Other Evaluation noteNo assessment information [facility] Work Phone: Evaluation note* Diagnosis Dermatophytosis of nail- Primary Dystrophic nail Other specified disease of nail Pain around toenail documented in this encounter [facility] Healthcare[facility] note* Diagnosis 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 documented [facility]* Diagnosis 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 documented in this encounter [facility] System[facility] general Narrative - Reported* Type Description Date Surgical History bones in feet shaved Surgical History pins left wrist Surgical History cage in back 2011 Surgical History open heart surgery 2020 Surgical History pacemaker 2020 [facility] Other History general Narrative - Reported* Type Description Date Surgical History bones in feet shaved Surgical History pins left wrist Surgical History cage in back 2011 Surgical History open heart surgery 2020 Surgical History pacemaker 2020 Hospitalization History fall- [facility] d/t c oncussion 04/13/2022 [facility] Other History general Narrative - Reported* Type Description Date Medical History Primary osteoarthritis of right knee Medical History Primary osteoarthritis of right hip Medical History Chronic fatigue Medical History Essential hypertension Medical History Vitamin D deficiency Surgical History bones in feet shaved Surgical History pins left wrist Surgical History cage in back 2011 Surgical History open heart surgery 2019 Surgical History pacemaker 2019 Hospitalization History fall- [facility] d/t c oncussion 04/13/2022 [facility] Other InstructionsNot on filedocumented in this encounter [facility]ructionsNot on filedocumented in this encounter [facility] Summary Purpose Family History No Family History Records Found Relationship Condition Age at Onset Recorded Date/T jacki father Unknown Not Specified Unknown Advance Directives No Advanced Directives Records FoundLatest Code Status on File Code Status Date Activated Date Inactivated Comments Full Code 04/14/2022 8:43 PM Healthcare Agents on File Name Relationship Healthcare Agent Relationshi p Communication Kiya Bill Child Primary Decision Maker Advance Directive Response Recorded Date/ Time Advance Directives No February 12:26pm Latest Code Status on File Code Status Date Activated Date Inactivated Comments Full Code 11/04/2018 3:48 AM 11/05/2018 4:08 PM Code Status History Code Status Date Activated Date Inactivated Comments Full Code 10/30/2018 12:43 PM 11/03/2018 7:11 PM Chief Complaint and Reason for Visit Chief Complaint Epigastric Pain Chronic Pain Amb Documentation discuss DNR Additional Source Comments INFORMATION SOURCE (unrecogn ized section and content) DATE CREATED AUTHOR 03/16/2020 [facility] DATE CREATED AUTHOR AUTHOR'S ORGANIZ ATION 11/28/2021 [facility] DATE CREATED AUTHOR AUTHOR'S ORGANIZ ATION 01/15/2022 [facility] DATE CREATED AUTHOR AUTHOR'S ORGANIZ ATION 04/14/2022 [facility] DATE CREATED AUTHOR AUTHOR'S ORGANIZ ATION 04/16/2022 [facility] DATE CREATED AUTHOR AUTHOR'S ORGANIZ ATION 04/20/2022 [facility] DATE CREATED AUTHOR AUTHOR'S ORGANIZ ATION 04/26/2022 [facility] DATE CREATED AUTHOR AUTHOR'S ORGANIZ ATION 08/26/2022 [facility] DATE CREATED AUTHOR AUTHOR'S ORGANIZ ATION 09/26/2022 [facility] DATE CREATED AUTHOR AUTHOR'S ORGANIZ ATION 09/25/2023 [facility] DATE CREATED AUTHOR AUTHOR'S ORGANIZ ATION 11/11/2023 [facility] EPIC DATE CREATED AUTHOR AUTHOR'S ORGANIZ ATION 02/20/2024 [facility] Source Comments (unrecognize d section and content) In the event this informatio n is protected by the Federal Confidentiality of Alcohol and Drug Abuse Patient Records regulations: The Federal rules restrict any use of the information to criminally investigate or prosecute any alcohol or drug abuse patient.[facility] Reason for Visit (unrecogniz ed section and content) Reason Comments colonoscopy questions Reason Comments Fall No LOC, tripped walk ing dog, on Plavix, SDH no midline shift per report. Neuro intact Reason Comments Fungus Established pt prese nts today for lamisil fuv. Pt states nail appearance has improved. Using vinegar topically. Reason Comments Med Refill Care Teams (unrecognized sec tion and content) Vine Fruit Farming Supervisor Relationship Specialty Start Date End Date Jessica Maxwell MD [address] [place] [address] PCP - General Family Practice 03/30/14 Jayant Ambrocio [address] [place] [phone] Cardiology 11/18/19 Vine Fruit Farming Supervisor Relationship Specialty Start Date End Date Jessica Maxwell MD [address] [place] [address] PCP - General Family Medicine 04/14/22 Team Status: Inactive Member Role Status Dates eJb Salas DO Attending Provider Active [employer] Fruit Farm[employer] Supervisor Relationship Specialty Start Date End Date David Arellano DO [address] [place] [address] PCP - General [facility] 03/27/23 Vine Fruit Farming Supervisor Relationship Specialty Start Date End Date David Arellano DO [address] [place] [address] PCP - General [facility] 03/27/23 Vine Fruit Farming Supervisor Relationship Specialty [place] [address] [place] [address] PCP - General 02/21/17 Vine Fruit Farming Supervisor Relationship Specialty Start Date End Date Jessica Maxwell MD [address] [place] [address] PCP - General 02/21/17 Vine Fruit Farming Supervisor Relationship Specialty Start Date End Date Jessica Maxwell MD [address] [place] [address] PCP - General 02/21/17 Team Status: Active Member Role Status Dates Jessica Maxwell MD Primary Care Provider Active Team Status: Inactive Member Role Status Dates Jessica Maxwell MD Attending Provider Active St art: June 23, 2023 End: June 23, 2023 Team Status: Inactive Member Role Status Dates Jessica Maxwell MD Attending Provider Active St art: June 30, 2023 End: June 30, 2023 Team Status: Active Member Role Status Dates Jessica Maxwell MD Primary Care Provider Active Start: August 22, 2023 NICK Dorado Attending Provider Active Start : August 22, 2023 Team Status: Inactive Member Role Status Dates Jessica Maxwell MD Primary Care Provide r, Attending Provider Active Start: September 18, 2023 End: September 18, 2023 Ordered Prescriptions (unrec ognized section and content) [...] (3 times per day), First dose on Fri04/14/22 at 2200, Until Discontinued, Maximum dose of acetaminophen is 4000 mg from all sources in 24 hours. 2111 (Given - Provider: August Mcarthur RN) 06 (Given - Provider: Aide Fong RN)1541 (Given - Provider: Elaine Degroot RN)0 (Due) levothyroxine (SYNTHROID) tablet 50 mcg 50 mcg, Oral, DAILY, First dose on Fri04/15/22 at 0700, Until Discontinued, Tube feeding (TF) interaction, obtain physician order to manage, recommend holding TF for 30 minutes before and after dose. 0610 (Given - Provid er: Aide Fong RN) liothyronine (CYTOMEL) tablet 5 mcg 5 mcg, Oral, DAILY, First dose on Fri04/15/22 at 0900, Until Discontinued 1103 (Given - Provid er: Elaine Degroot RN) metoprolol tartrate (LOPRESSOR) tablet 25 mg 25 mg, Oral, 2 TIMES DAILY, First dose on Fri04/16/22 at 0900, Until Discontinued polyethylene glycol (GLYCOLAX) packet 17 g 17 g, Oral, DAILY, First dose on Fri04/14/22 at 204, Until Discontinued, Stir and dissolve one packet [...] dose on Fri04/15/22 at 0900, Until Discontinued 154 (Given - Provid er: Elaine Degroot RN - Comment: as requested by patient) Continuous Medication Order 04/13/2022 04/14/2022 04/15/2022 0.9 % sodium chloride infusion (CANCELED) IntraVENous, at 75 mL/hr, CONTINUOUS, Starting on Fri04/14/22 at 2044 2111 (New Bag - Provider: [...] at 0013, Until Discontinued, Anxiety, facial tic 2 (Given - Provid er: Aide Fong RN) iopamidol (ISOVUE-370) 76 % injection 130 mL (COMPLETED) 130 mL, IntraVENous, IMG ONCE PRN, 1 dose, Starting on 04/14/22 at 1936, Until 04/14/22 at 193, Other 1936 (Given - Provider: Asia Gonzalez - Comment: [id number] 09/2024) ondansetron (ZOFRAN) injection 4 mg(Linked Group [...] 6 HOURS PRN, Starting on 04/14/22 at 4, Until Discontinued, Nausea, Vomiting
Administer if oral [...] BE BASED ON THE PRIMARY CLINICAL RECORDS. [employer] provides no warranty or guarantee of the accuracy or completeness of information in this document.
== END 2024-02-24 11:12 | disposition home or self-care (01) ==
LOC: RAD 11:14
PROVIDERS: PCP Family Medicine; Visit Provider Family Medicine
DX: M25.572 Pain in left ankle and joints of left foot (principal); M79.672 Pain in left foot; S92.252A Displaced fracture of navicular [scaphoid] of left foot, initial encounter for closed fracture
CPT/HCPCS: 73610; 73630

== ENCOUNTER 2024-04-08 13:50 | Outpatient (OUT) | payer MEDICARE, OTHER, SELFPAY | END 2024-04-08 13:51 | disposition home or self-care (01) | LOC: LAB 13:51 | PROVIDERS: PCP Family Medicine | DX: E55.9 Vitamin D deficiency, unspecified (principal) | CPT/HCPCS: 36415; 82306 ==

== ENCOUNTER 2024-06-22 13:53 | Outpatient (RCR) | payer MEDICARE, OTHER, SELFPAY | END 2024-07-16 07:43 | disposition home or self-care (01) | LOC: OT 13:53 | PROVIDERS: PCP Family Medicine; Visit Provider Orthopaedic Surgery | DX: M19.90 Unspecified osteoarthritis, unspecified site (principal) | CPT/HCPCS: 97018; 97165; 97530 ==

== ENCOUNTER 2025-01-31 09:46 | Outpatient (OUT) | payer MEDICARE, OTHER, SELFPAY ==
--- NOTE | 2025-01-31 | XR_ITS ---
The [address] [address] Patient Name: RAMEZ VELA MRN: [id number] date: 1940 Sex: F Assigned Patient Location: [facility] Current Patient Location: [facility] Accession/Order Number: [id number] Exam Date: 01/31/2025 10:00 Report Date: 01/31/2025 11:20 At the request of: SLIM SALAS DO Procedure: XR hip LT 1V w/ pelvis LEFT HIP WITH AP PELVIS - 2 views COMPARISON: 01/01/[address] 10/05/2020 CLINICAL DATA: Chronic left hip pain. No injury. AP weightbearing view of the pelvis and frog lateral view of the left hip were obtained. There is osteopenia. No acute fractures or dislocation are noted. The hip joint spaces are symmetric. There is minor marginal spurring at the periphery of the femoral heads and superior acetabula. The SI joints are intact and show minor sclerosis. Levoscoliotic curvature and degenerative changes are seen at the lower imaged lumbar spine. There is calcified fibroid disease. XR/XR hip LT 1V w/ pelvis IMPRESSION: MINOR DEGENERATIVE CHANGES. NO ACUTE BONY FINDINGS Impression dictated by: Xochitl Mcclellan M.D. 01/31/2025 11:20 AM Dictation Location: [employer] Electronically authenticated by: [id number] Y Date: 01/31/2025 11:20
--- OUTSIDE RECORDS SUMMARY | 2025-01-31 09:49 | XMS_ITS | Encounter Summary ---
Author Organization [facility] Address [address] [place] [address] Care Team Providers Care Inspector Agricultural Commodities Name Role Phone Unallocated, Noms Provider Primary Care Provi robin Anthony Engle MD Primary Care Provider Reason for Visit * Reason Comments Med Refill Encounter Details Date Type Department Care Team (Late Contact Info) Description 02/13/2024 Refill [facility] [address] [place] [phone] Gealcio Nolasco, DPM [address] [place], [place] [phone] Dermatophytosis of nail; Dystrophic nail Social History Tobacco Use Types Packs/Day Years Used Date Smoking Tobacco: Former Cigarettes Q uit: 1968 Smokeless Tobacco: Never Alcohol Use Standard Drinks/Week Comments Yes 0 (1 standard drink = 0.6 oz pure alcohol) 1-2 drinks less than monthly in the past year, Caffeine intake: 1-2 cups per day, coffee Comments Unknown Sex and Gender Information Value Date Recorded Sex Assigned at Not on file Legal Sex Female 6:35 PM EDT Gender Identity Not on file Sexual Orientation Not on file documented as of this encounter Plan of Treatment Upcoming Encounters Date Type Department Care Team (Late Contact Info) Description 02/02/2025 1:00 PM EDT Procedure Visit [facility] [address] [place] [phone] Gelacio Nolasco DPM [address] [place], [place] [phone] documented as of this encounter Visit Diagnoses Diagnosis Dermatophytosis of nail Dystrophic nail Other specified disease of nail documented in this encounter Care Teams Inspector Agricultural Commodities Relationship Specialty Start Date End Date Unallocated, Noms Provider, [address] [place] [address] PCP - General Family Medicine 08/27/23 10/26/24 Anthony Engle MD [address] [address] PCP - General Pediatrics 10/27/24 documented as of this encounter
--- OUTSIDE RECORDS SUMMARY | 2025-01-31 09:49 | XMS_ITS | Encounter Summary ---
Author Organization [facility] Address [address] [place] [address] Care Team Providers Care Photoengraving Apprentice Name Role Phone David Arellano DO Primary Care Provider [phone] Unallocated, Noms Provider Primary Care Provi robin Anthony Engle MD Primary Care Provider Encounter Details Date Type Department Care Team (Late Contact Info) Description 03/26/2023 Abstract [facility] [address] [facility] [place] [phone] Gelacio Nolasco DPM [address] [place], [place] [phone] Social History Tobacco Use Types Packs/Day Years Used Date Smoking Tobacco: Former Cigarettes Q uit: 1968 Tobacco Cessation:Counseling Given: Not Answered Alcohol Use Standard Drinks/Week Comments Yes 0 [...] Procedure Visit [facility] [address] [place] [address] Gelacio Nolasco DPM [address] [place] [address] documented as of this encounter Visit Diagnoses Not on filedocumented in this encounter Care Teams Photoengraving Apprentice Relationship Specialty Start Date End Date David Arellano DO [address] [place] [address] PCP - General Family Medicine 03/27/23 08/26/23 Unallocated, Nomsue Rodas MD [address] [place] [address] PCP - General Family Medicine 08/27/23 10/26/24 Anthony Engle MD [address] [id number] PCP - General Pediatrics 10/27/24 documented as of this encounter
--- OUTSIDE RECORDS SUMMARY | 2025-01-31 09:49 | XMS_ITS | Encounter Summary ---
Author Organization [facility] Address [address] [place] [address] Care Team Providers Care Filter Tank Tender Name Role Phone Yasmin Ríos MD Primary Care Provider [phone] Kwesi Tilley MD, Uriel Sahu Unavailable Source Comments In the event this information is protected by the Federal Confidentiality of Alcohol and Drug AbusePatient Records regulations: The Federal rules restrict any use of the information to criminally investigate or prosecute any alcohol or drug abuse patient.[facility] Encounter Details Date Type Department Care Team (Latest Contact Info) Description 01/05/2020 H&P External-NonCCF Provider, Elliott, ANGELICA Do not enter address information under generic External Provider. Social History Tobacco Use Types Packs/Day Years Used Date Smoking Tobacco: Former Cigarettes Q uit: [birth year]09/1947 Smokeless Tobacco: Never Alcohol Use Standard Drinks/Week Comments Yes 1 (1 standard drink = 0.6 oz pur e alcohol) AUDIT-C Answer Date Recorded Q1: How often do you have a drink containing alc ohol? Monthly or less 11/18/2019 Q2: How many drinks containi ng alcohol do you have on a typical day when you are drinking? 1 or 2 11/18/2019 Q3: How often do you have si x or more drinks on one occasion? Never 11/18/2019 PHQ-2 Answer Date Recorded PHQ-2 Score 0 11/09/2019 Comments No Sex and Gender Information Value Date Recorded Sex Assigned at Female 05/01/2020 7:28 AM EST Legal Sex Female 3:32 PM EDT Gender Identity Female 05/01/2020 7:29 AM EST Sexual Orientation Straight 05/01/2020 7: 28 AM EST COVID-19 Exposure Response Date Recorded In the last month, have you been in contact with someone who was confirmed or suspected to have Coronavirus / COVID-19? Unable to assess 01/04/2020 1:50 PM EDT documented as of this encounter Functional Status * Are you deaf or do you have serious difficulty hearing? Answer Date of Assessment Author No 04/18/2014 9:51 AM Kallie Cannon Ma * Are you blind or do you have serious difficulty seeing, even when wearing glasses? Answer Date of Assessment Author No 04/18/2014 9:51 AM Kallie Cannon Ma * Do you have serious difficulty walking or climbing stairs? Answer Date of Assessment Author No 04/18/2014 9:51 AM Kallie Cannon Ma * Do you have difficulty dressing or bathing? Answer Date of Assessment Author No 04/18/2014 9:51 AM Kallie Cannon Ma * Because of a physical, mental, or emotional condition, do you have difficulty doing errands alone such as visiting a doctor's office or shopping? Answer Date of Assessment Author No 04/18/2014 9:51 AM Kallie Cannon Ma documented as of this encounter Mental Status * Because of a physical, mental, or emotional condition, do you have serious difficulty concentrating, remembering, or making decisions? Answer Entry Date Author Yes 04/18/2014 9:51 AM Kallie Cannon Ma documented in this encounter Plan of Treatment Not on file documented as of this encounter Visit Diagnoses Not on filedocumented in this encounter Care Teams Filter Tank Tender Relationship Specialty Start Date End Date Yasmin Ríos MD [address] [place] [address] PCP - General Family Medicine 03/30/14 Uriel Orosco Jr., MD [address] [place] [address] Cardiology 11/18/19 documented as of this encounter
--- OUTSIDE RECORDS SUMMARY | 2025-01-31 09:49 | XMS_ITS | Encounter Summary ---
Author Organization [facility] Address [address] [place] [address] Care Team Providers Care President Sales And Marketing Name Role Phone David Arellano DO Primary Care Provider [phone] Unallocated, Noms Provider Primary Care Provi robin Anthony Engle MD Primary Care Provider Encounter Details Date Type Department Care Team (Late Contact Info) Description 04/02/2023 Abstract [facility] [address] [place] [phone] Gelacio Nolasco DPM [address] [place], [place] [phone] Social History Tobacco Use Types Packs/Day Years [...] 02/02/2025 1:00 PM EDT Procedure Visit [facility] [address] [place] [phone] Gelacio Nolasco DPM [address] [place], [place] [phone] documented as of this encounter Visit Diagnoses Not on filedocumented in this encounter Care Teams President Sales And Marketing Relationship Specialty Start Date End Date David Arellano DO [address] [facility] [address] [place] [address] PCP - General Family Medicine 03/27/23 08/26/23 Unallocated, Tamara Rodas MD [address] [place] [address] PCP - General Family Medicine 08/27/23 10/26/24 Anthony Engle MD [address] [phone] PCP - General Pediatrics 10/27/24 documented as of this encounter
--- OUTSIDE RECORDS SUMMARY | 2025-01-31 09:49 | XMS_ITS | Encounter Summary ---
Author Organization [employer] Address [id number] [address] [place] [address] Care Team Providers Care Newspaper Photographer Name Role Phone Amrita Hooks MD Primary Care Provider [phone] Encounter Details Date Type Department Care Team (Late st Contact Info) Description 11/19/2022 Telephone [facility] [address] [place] [address] Geovanna Lopez Social History Tobacco Use Types Packs/Day Years Used Date Smoking Tobacco: Former Cigarettes 1 7 1 927 - 9347 Smokeless Tobacco: Never Alcohol Use Standard Drinks/Week Comments Yes 0 (1 standard drink = 0.6 oz pur e alcohol) Occasional PHQ-2 Answer Date Recorded Total Score 0 10/18/2021 Childcare Answer Date Recorded Childcare Unknown 11/05/2018 Employment Answer Date Recorded Employment Unknown 11/05/2018 Hunger Screening Answer Date Recorded Within the past 12 months we worried whether our food would run out before we got money to buy more. Unable to Assess 023 Within the past 12 months th e food we bought just didn't last and we didn't have money to get more. Unable to Assess 09/07 Purpose - Life Answer Date Recorded Purpose and direction in life Unknown Comments No Sex and Gender Information Value Date Recorded Sex Assigned at Female 07/07/2019 4:39 PM EST Legal Sex Female 11:48 AM EDT Gender Identity Female 07/07/2019 4:39 PM EST Sexual Orientation Straight 07/07/2019 4: 39 PM EST documented as of this encounter Miscellaneous Notes * Telephone Encounter - Geovanna Lopez - 11/19/2022 9:54 AM EDT Received referral for Aortic valve insufficiency, etiology of cardiac valve disease unspecified * Telephone Encounter - JAIME Sharpe - 11/19/2022 9:54 AM EDT SH w/o CTS, no testing prior documented in this encounter Plan of Treatment Upcoming Encounters Date Type Department Care Team (Late st Contact Info) Description 05/02/2025 11:30 AM EST [facility] [address] [address] Wilmer Doe MD [address] [employer] [address] [address] documented as of this encounter Goals Goal Patient Goal Type Associated Problems Recent Progress Patient-Stated? Author d/c home General Yes Cathy Vu, RN Note: Evaluation of progress towards goal: plan is home with home health documented as of this encounter Visit Diagnoses Not on filedocumented in this encounter Additional Health Concerns Assessment Noted Time PHQ-9 Depression Total Score: 0 10/19/19 22 1:00 PM EDT documented as of this encounter Care Teams Newspaper Photographer Relationship Specialty Start Date End Date Amrita Hooks MD [address] [place] [address] PCP - General Internal Medicine 07/27/24 documented as of this encounter
--- OUTSIDE RECORDS SUMMARY | 2025-01-31 09:49 | XMS_ITS | Encounter Summary ---
Author Organization [email or web address] Sys [employer] Address [facility][id number] [address] [place] [address] Care Team Providers Care Oil Well Cable Tool Driller Name Role Phone Amrita Hooks MD Primary Care Provider [phone] Encounter Details Date Type Department Care Team (Late st Contact Info) Description 02/04/2024 Orders Only [facility] [address] [place] [address] Veronica Pineda CMA Paroxysmal atrial fibrillation ([facility]); SSS (sick sinus syndrome) ([facility]); Presence of cardiac pacemaker; Valvular heart disease; Essential hypertension Social History Tobacco Use Types Packs/Day Years Used Date Smoking Tobacco: Former Cigarettes 1 7 1 086 - 3104 Smokeless Tobacco: Never Alcohol Use Standard Drinks/Week [...] before we got money to buy more. Never True 02/04/2024 Within the past 12 months th e food we bought just didn't last and we didn't have money to get more. Never True 02/04/2024 Purpose - Life Answer Date Recorded Purpose and direction in life Unknown Comments No Sex and Gender Information Value Date Recorded Sex Assigned at Female 07/07/2019 4:39 PM EST Legal Sex Female 11:48 AM EDT Gender Identity Female 07/07/2019 4:39 PM EST Sexual Orientation Straight 07/07/2019 4: 39 PM EST documented as of this encounter Plan of Treatment Upcoming Encounters Date Type Department Care Team (Late st Contact Info) Description 05/02/2025 11:30 AM EST Office Visit [facility] Department of [facility] [address] [address] Wilmer Doe MD [address] [address] documented as of this encounter Goals Goal Patient Goal Type Associated Problems Recent Progress Patient-Stated? Author d/c home General Yes Cathy Vu RN Note: Evaluation of progress towards goal: plan is home with home health documented as of this encounter Procedures Procedure Name Priority Date/Time Associated Diagnosis Comments DEVICE INTERROGATION Routine 02/04/2024 Paroxysmal atrial fibrillation ([facility]) SSS (sick sinus syndrome) ([facility]) Presence of cardiac pacemaker Valvular heart disease Essential hypertension documented in this encounter Results * Device Interrogation (02/04/2024) Anatomical Region Laterality Modality Other 02/04/2024 Emiliano Go MD CV CARDIAC SERVICES ORDERABLE S Final Result documented in this encounter Visit Diagnoses Diagnosis Paroxysmal atrial fibrillation ([facility]) Atrial fibrillation SSS (sick sinus syndrome) ([facility]) Sinoatrial node dysfunction Presence of cardiac pacemaker Cardiac pacemaker in situ Valvular heart disease Endocarditis, valve unspecified, unspecified cause Essential hypertension Unspecified essential hypertension documented in this encounter Additional Health Concerns Assessment Noted Time PHQ-9 Depression Total Score: 0 10/19/19 22 1:00 PM EDT documented as of this encounter Care Teams Oil Well Cable Tool Driller Relationship Specialty Start Date End Date Amrita Hooks MD [address], [place] [address] PCP - General Internal Medicine 07/27/24 documented as of this encounter
--- OUTSIDE RECORDS SUMMARY | 2025-01-31 09:49 | XMS_ITS | Encounter Summary ---
Author Organization [facility] Address [address] [place] [address] Care Team Providers Care Lead Developer Name Role Phone David Arellano DO Primary Care Provider [phone] Unallocated, Noms Provider Primary Care Provi robin Anthony Engle MD Primary Care Provider Reason for Visit * Reason Comments Med Refill Encounter Details Date Type Department Care Team (Late st Contact Info) Description 03/26/2023 Refill [facility] [address] [place] [address] Nargis Tsai MD [address] [facility] [address] [place] [address] Social History Tobacco Use Types Packs/Day Years Used Date Smoking Tobacco: Former Cigarettes Q uit: 1968 Alcohol Use Standard Drinks/Week Comments Yes 0 [...] Care Team (Late st Contact Info) Description 02/02/2025 1:00 PM EDT Procedure Visit [facility] [address] [place] [address] Gelacio Nolasco, DPKeyla [address] [place], [place] [phone] documented as of this encounter Visit Diagnoses Not on filedocumented in this encounter Care Teams Lead Developer Relationship Specialty Start Date End Date David Arellano DO [address] [facility] [address] [place] [address] PCP - General Family Medicine 03/27/23 08/26/23 Unallocated, Noms Provider, [address] [place] [address] PCP - General Family Medicine 08/27/23 10/26/24 Anthony Engle MD [address] [address] PCP - General Pediatrics 10/27/24 documented as of this encounter
--- OUTSIDE RECORDS SUMMARY | 2025-01-31 09:49 | XMS_ITS | Encounter Summary ---
Author Organization [employer] Address [facility]-[id number] [address] [place] [address] Care Team Providers Care Biological Chemist Name Role Phone Amrita Hooks MD Primary Care Provider [phone] Encounter Details Date Type Department Care Team (Late Contact Info) Description 11/05/2022 Orders Only [facility] [address] [place] [address] Megha Curtis CMA Presence of cardiac pacemaker Social History Tobacco Use Types Packs/Day Years Used Date Smoking Tobacco: Former Cigarettes 1 7 1 656 - 7860 Smokeless Tobacco: Never Alcohol Use Standard Drinks/Week [...] Department Care Team (Late Contact Info) Description 05/02/2025 11:30 AM EST [facility] [address] [address] Wilmer Doe MD [address] [address] documented as of this encounter Goals Goal Patient Goal Type Associated Problems Recent Progress Patient-Stated? Author d/c home General Yes Cathy Vu, DILAN Note: Evaluation of progress towards goal: plan is home with home health documented as of this encounter Procedures Procedure Name Priority Date/Time Associated Diagnosis Comments DEVICE INTERROGATION Routine 11/01/2022 7:58 AM E DT Presence of cardiac pacemaker documented in this encounter Results * Device Interrogation (11/01/2022 7:58 AM EDT) Anatomical Region Laterality Modality Other Brinda Harp APRN-STRATEGIC ACCOUNT DIRECTOR CV CARDIAC SERV ICES ORDERABLES Final Result documented in this encounter Visit Diagnoses Diagnosis Presence of cardiac pacemaker Cardiac pacemaker in situ documented in this encounter Additional Health Concerns Assessment Noted Time PHQ-9 Depression Total Score: 0 10/19/19 22 1:00 PM EDT documented as of this encounter Care Teams Biological Chemist Relationship Specialty Start Date End Date Amrita Hooks MD [address] [facility] [place] [address] PCP - General Internal Medicine 07/27/24 documented as of this encounter
--- OUTSIDE RECORDS SUMMARY | 2025-01-31 09:49 | XMS_ITS | Encounter Summary ---
Author Organization [facility] Address [address] [place] [address] Care Team Providers Care Director Agency & Strategic Partnerships Name Role Phone David Arellano DO Primary Care Provider [phone] Unallocated, Noms Provider Primary Care Provi robin Anthony Engle MD Primary Care Provider Reason for Visit * Reason Comments Med Refill Encounter Details Date Type Department Care Team (Late Contact Info) Description 08/22/2023 Refill [facility] [address] [place] [phone] Gelacio Nolasco, DPKeyla [address] [place], [place] [phone] Dermatophytosis of nail; Dystrophic nail Social History [...] EDT Procedure Visit [facility] [address] [facility] [place] [address] Gelacio Nolasco, KATTY [address] [place] [address] documented as of this encounter Visit Diagnoses Diagnosis Dermatophytosis of nail Dystrophic nail Other specified disease of nail documented in this encounter Care Teams Director Agency & Strategic Partnerships Relationship Specialty Start Date End Date David Arellano DO [address] [facility] [address] [place] [address] PCP - General Family Medicine 03/27/23 08/26/23 Unallocated, Noms Provider, [address] [place] [address] PCP - General Family Medicine 08/27/23 10/26/24 Anthony Engle MD [address] [address] PCP - General Pediatrics 10/27/24 documented as of this encounter
--- OUTSIDE RECORDS SUMMARY | 2025-01-31 09:49 | XMS_ITS | Encounter Summary ---
Author Organization [facility] Address [id number] [address] [place] [address] Care Team Providers Care Chief Cloth Finishing Range Operator Name Role Phone Amrita Hooks MD Primary Care Provider [phone] Reason for Visit * Reason Onset Date Comments c/o fatigue, flutter in chest 10/29/2022 Encounter Details Date Type Department Care Team (Late st Contact Info) Description 10/29/2022 Telephone [facility] Card[facility] [address] [place] [address] Mattie Yang, DILAN c/o fatigue, flutter in chest Social History Tobacco Use Types Packs/Day Years Used Date Smoking Tobacco: Former Cigarettes 1 7 1 956 - 0380 Smokeless Tobacco: Never Alcohol Use Standard Drinks/Week [...] encounter Miscellaneous Notes * Telephone Encounter - Mattie Yang RN - 10/29/2022 2:35 PM EDT [employer] DC PPM - implanted 11/04/18 per KPT Patient calling in c/o intermittent fatigue, SOB and fluttering in chest. Patient states symptoms have been going on for 2-3 weeks. Patient concerned that she has Afib. No OACs. Attempted x2 to send a home monitor transmission and keeps getting error codes. [employer] tech services number given. Encouraged patient to make an appointment, she will call back. * Telephone Encounter - Mattie Yang RN - 10/29/2022 2:35 PM EDT Patient called back, unable to reach tech services. Transferred to scheduling to arrange appt. [employer] Stay Connected online request sent. documented in this encounter Plan of Treatment Upcoming Encounters Date Type Department Care Team (Late st Contact Info) Description 05/02/2025 11:30 AM EST Office Visit [facility] Neurology, A Department of [facility] [address] [address] Wilmer Doe MD [address] [address] documented as of this encounter [...] documented as of this encounter Care Teams Chief Cloth Finishing Range Operator Relationship Specialty Start Date End Date Amrita Hooks MD [address] [place] [address] PCP - General Internal Medicine 07/27/24 documented as of this encounter
--- OUTSIDE RECORDS SUMMARY | 2025-01-31 09:49 | XMS_ITS | Encounter Summary ---
Author Organization [facility] Address [address] [place] [address] Care Team Providers Care Warp Trucker Name Role Phone David Arellano DO Primary Care Provider [phone] Unallocated, Noms Provider Primary Care Provi robin Anthony Engle MD Primary Care Provider Reason for Visit * Reason Comments Med Refill Encounter Details Date Type Department Care Team (Late Contact Info) Description 07/24/2023 Refill [facility] [address] [place] [place] [address] Gelacio Nolasco, DPKeyla [address] [place], [place] [phone] Dermatophytosis of nail; Dystrophic nail Social History [...] EDT Procedure Visit [facility] [address] [facility] [place] [address] Gelacio Nolasco, KATTY [address] [place] [address] documented as of this encounter Visit Diagnoses Diagnosis Dermatophytosis of nail Dystrophic nail Other specified disease of nail documented in this encounter Care Teams Warp Trucker Relationship Specialty Start Date End Date David Arellano DO [address] [facility] [address] [place] [address] PCP - General Family Medicine 03/27/23 08/26/23 Unallocated, Noms Provider, [address] [place] [address] PCP - General Family Medicine 08/27/23 10/26/24 Anthony Engle MD [address] [address] PCP - General Pediatrics 10/27/24 documented as of this encounter
--- OUTSIDE RECORDS SUMMARY | 2025-01-31 09:50 | XMS_ITS | Encounter Summary ---
Author Organization [facility] tem Address [id number] [address] [place] [address] Care Team Providers Care Porcelain Finish Sprayer Name Role Phone Amrita Hooks MD Primary Care Provider [phone] Encounter Details Date Type Department Care Team (Late Contact Info) Description 07/08/2019 [facility]phone [facility] [address] [place] [phone] Eden Yancey, MANAGER SALES SUPPORT-CALL TAKER Social History Tobacco Use Types Packs/Day Years Used Date Smoking Tobacco: Former Cigarettes 1 7 1 916 - 3669 Smokeless Tobacco: Never Alcohol Use Standard Drinks/Week Comments Yes 0 (1 standard drink = 0.6 oz pur e alcohol) 6 glasses of wine a year Childcare Answer Date Recorded Childcare Unknown 11/05/2018 Employment Answer Date Recorded Employment Unknown 11/05/2018 Comments No Sex and Gender Information Value Date Recorded Sex Assigned at Female 07/07/2019 4:39 PM EST Legal Sex Female 11:48 AM EDT Gender Identity Female 07/07/2019 4:39 PM EST Sexual Orientation Straight 07/07/2019 4: 39 PM EST documented as of this encounter Plan of Treatment Upcoming Encounters Date Type Department Care Team (Late Contact Info) Description 05/02/2025 11:30 AM EST Office Visit [facility], A Department of [facility] [address] [address] Wilmer Doe MD [address] [address] documented as of this encounter Goals Goal Patient Goal Type Associated Problems Recent Progress Patient-Stated? Author d/c home General Yes Cathy Vu, RN Note: Evaluation of progress towards goal: plan is home with home health documented as of this encounter Visit Diagnoses Not on filedocumented in this encounter Additional Health Concerns Infection Onset Date Last Indicated Resolved Time Enteric Rule-Out 01/16/2022 01/16/2022 01/16/2022 5:44 PM EDT documented as of this encounter Care Teams Porcelain Finish Sprayer Relationship Specialty Start Date End Date Amrita Hooks MD [address] [place] [address] PCP - General Internal Medicine 07/27/24 documented as of this encounter
--- OUTSIDE RECORDS SUMMARY | 2025-01-31 09:50 | XMS_ITS | Encounter Summary ---
Author Organization [facility] [facility] Address [facility] [id number] [address] [place] [address] Care Team Providers Care Tax Accountant Name Role Phone Amrita Hooks MD Primary Care Provider [phone] Reason for Visit * Reason Onset Date Comments RA lead noise 02/04/2024 Encounter Details Date Type Department Care Team (Late st Contact Info) Description 02/04/2024 [facility]phone [facility] [address] [place] [address] Mattie Yang, RN RA lead noise Social History Tobacco Use Types Packs/Day Years Used Date Smoking Tobacco: Former Cigarettes 1 7 1 956 - 1963 Smokeless Tobacco: Never Alcohol Use Standard Drinks/Week [...] Telephone Encounter - Mattie Yang RN - 02/04/2024 3:38 PM EDT Images from the original note were not included. [employer] DC PPM - implanted 11/04/18 per [facility] device check completed. 26 AT/AF. Saved EGMs appear RA lead noise; no real AF noted. Negative Mohamud's. 746 short V-V intervals. Negative Mohamud's. Reviewed with MS in office, he requested message to be sent re: AT/AF episode if real AF noted? Patient has been off her coumadin. Reviewed episodes with tech services. Per tech services, saved AT/AF episodes appear RA lead noise.Tech services states could adjust sensitivity per provider. Could do a chest xray to see if leads are touching each other or the clavicle. Real time EGM: intermittent farfield oversensing? Hx of AF; no adjustments to sensitivity made in office. Lead trends stable. Will continue to monitor unless further orders received. Thank you. * Telephone Encounter - Augustin Bower MD - 02/04/2024 3:38 PM EDT Yeah, looks like noise and not atrial fibrillation. Thanks, OK documented in this encounter Plan of Treatment Upcoming Encounters Date Type Department Care Team (Late st Contact Info) Description 05/02/2025 11:30 AM EST [facility] Department of [facility] [address] [facility] [employer] [address] [address] Wilmer Doe MD [address] [address] documented as of this encounter [...] documented as of this encounter Care Teams Tax Accountant Relationship Specialty Start Date End Date Amrita Hooks MD [address] [facility] [place] [address] PCP - General Internal Medicine 07/27/24 documented as of this encounter
--- OUTSIDE RECORDS SUMMARY | 2025-01-31 09:50 | XMS_ITS | Encounter Summary ---
Author Organization [facility] Address [address] [place] [address] Care Team Providers Care Engraving Plate Maker Name Role Phone Unallocated, Noms Provider Primary Care Provi robin Anthony Engle MD Primary Care Provider Reason for Visit * Reason Comments Med Refill Encounter Details Date Type Department Care Team (Late Contact Info) Description 03/25/2024 Refill [facility] [address] [place] [phone] Gelacio Nolasco, SUSANM [address] [place], [place] [phone] Dermatophytosis of nail; Dystrophic nail Social History [...] Procedure Visit [facility] [address] [place] [address] Gelacio Nolasco DPM [address] [place], [place] [phone] documented as of this encounter Visit Diagnoses Diagnosis Dermatophytosis of nail Dystrophic nail Other specified disease of nail documented in this encounter Care Teams Engraving Plate Maker Relationship Specialty Start Date End Date Unallocated, Noms Provider, [address] [place] [address] PCP - General Family Medicine 08/27/23 10/26/24 Anthony Engle MD [address] [address] PCP - General Pediatrics 10/27/24 documented as of this encounter
--- OUTSIDE RECORDS SUMMARY | 2025-01-31 09:50 | XMS_ITS | Encounter Summary ---
Author Organization [facility] Address [id number] [address] [place] [address] Care Team Providers Care Surgical Dressing Maker Name Role Phone Amrita Hooks MD Primary Care Provider [phone] Encounter Details Date Type Department Care Team (Late Contact Info) Description 08/08/2020 Orders Only [facility] [address] [place] [address] External, Scanning Provider Social History Tobacco Use Types Packs/Day Years Used Date Smoking Tobacco: Former Cigarettes 1 7 1 076 - 0439 Smokeless Tobacco: Never Alcohol Use Standard Drinks/Week Comments Yes 0 (1 standard drink = 0.6 oz pur e alcohol) Occasional PHQ-2 Answer Date Recorded PHQ-2 Score 0 01/05/2020 Childcare Answer Date Recorded Childcare Unknown 11/05/2018 Employment Answer Date Recorded Employment Unknown 11/05/2018 Purpose - Life Answer Date Recorded Purpose and direction in life Unknown Comments No Sex and Gender Information Value Date Recorded Sex Assigned at Female 07/07/2019 4:39 PM EST Legal Sex Female 11:48 AM EDT Gender Identity Female 07/07/2019 4:39 PM EST Sexual Orientation Straight 07/07/2019 4: 39 PM EST COVID-19 Exposure Response Date Recorded In the last month, have you been in contact with someone who was confirmed or suspected to have Coronavirus / COVID-19? No / Unsure 08/07/2020 2:26 PM EST documented as of this encounter Plan of Treatment Upcoming Encounters Date Type Department Care Team (Late Contact Info) Description 05/02/2025 11:30 AM EST Office Visit [facility], [facility] Department of [facility] [address] [address] Wilmer Doe MD [address] [address] documented as of this encounter Goals Goal Patient Goal Type Associated Problems Recent Progress Patient-Stated? Author d/c home General Yes Cathy Vu, RN Note: Evaluation of progress towards goal: plan is home with home health documented as of this encounter Procedures Procedure Name Priority Date/Time Associated Diagnosis Comments DEVICE INTERROGATION Routine 08/07/2020 documented in this encounter Results * Device Interrogation (08/07/2020) Anatomical Region Laterality Modality Other us Scanning Provider External [facility] Final Result documented in this encounter Visit Diagnoses Not on filedocumented in this encounter Additional Health Concerns Infection Onset Date Last Indicated Resolved Time Enteric Rule-Out 01/16/2022 01/16/2022 01/16/2022 5:44 PM EDT Assessment Noted Time PHQ-9 Depression Total Score: 0 04/18/20 20 10:00 AM EST documented as of this encounter Care Teams Surgical Dressing Maker Relationship Specialty Start Date End Date Amrita Hooks MD [address] [place] [address] PCP - General Internal Medicine 07/27/24 documented as of this encounter
--- OUTSIDE RECORDS SUMMARY | 2025-01-31 09:50 | XMS_ITS | Clinical Summary ---
Author Organization [facility] Address [address] [facility], [address] [place] [address] Care Team Providers Care Garde Manger Name Role Phone Yasmin Ríos MD Primary Care Provider [phone] Allergies Active Allergy Reactions Criticality Noted Date Comments Sulfa Antibiotics 04/14/2022 Medications clonazePAM (KLONOPIN) 0.5 MG tablet Take 0.25 mg by mouth 3 times daily as needed. Active liothyronine (CYTOMEL) 5 MCG tablet Take 5 mcg by mouth daily Active metoprolol tartrate (LOPRESSOR) 25 MG tablet Take 25 mg by mouth 2 times daily Active levothyroxine (SYNTHROID) 50 MCG tablet Take 50 mcg by mouth Daily Active spironolactone (ALDACTONE) 25 MG tablet Take 25 mg by mouth daily Active ipratropium (ATROVENT) 0.06 % nasal spray 2 sprays by Each Nostril route 4 times daily Active clopidogrel (PLAVIX) 75 MG tablet Take 1 tablet by mouth daily Hold plavix x 2 weeks . Follow up with primary providers 30 tablet 3 2 Active Active Problems Problem Noted Date Diagnosed Date Subdural hematoma 04/14/2022 Social History Tobacco Use Types Packs/Day Years Used Date Smoking Tobacco: Former Cigarettes Smokeless Tobacco: Never Tobacco Cessation:Counseling Given: Yes Comments:Smoker when she was 17 years old to 23 years old Alcohol Use Standard Drinks/Week Comments Yes 1 (1 standard drink = 0.6 oz pure alcohol) one glass of wine every 4 months - social Comments Unknown Sex and Gender Information Value Date Recorded Sex Assigned at Female 05/22/2022 8:36 AM EST Legal Sex Female 1:42 PM EST Gender Identity Not on file Sexual Orientation Straight 05/22/2022 8: 36 AM EST Last Filed Vital Signs Vital Sign Reading Time Taken Comments Blood Pressure 133/74 04/15/2022 12:00 PM EST Pulse 61 04/15/2022 12:00 PM EST Temperature 36.8 C (98.2 F) 04/15/2022 12:00 PM EST Respiratory Rate 12 04/15/2022 4:15 AM EST Oxygen Saturation 99% 04/15/2022 12:00 PM EST Inhaled Oxygen Concentration - - Weight 52 kg (114 lb 10.2 oz) 04/14/2022 11:30 P M EST Height 154.9 cm (5' 1 ) 04/14/2022 11:30 PM EST Body Mass Index 21.66 04/14/2022 11:30 PM EST Plan of Treatment Health Maintenance Due Date Last Done Comments Depression Screen 1952 DTaP/Tdap/Td vaccine (1 - Tdap) 02/23/1960 Pneumococcal 50+ years Vacci ne (1 of 1 - PCV) 1991 Shingles vaccine (1 of 2) 1991 DEXA (modify frequency per F RAX score) 02/23/1996 Respiratory Syncytial Virus (RSV) or age 60 yrs+ (1 - 1-dose 75+ series) 02/23/2016 Annual Wellness Visit (Medicare) 05/05/2023 COVID-19 Vaccine (1 - 2023-2 5 season) 2024 Flu vaccine (#1) 01/07/2025 Hepatitis A vaccine Aged Out No longe r eligible based on patient's age to complete this topic Hepatitis B vaccine Aged Out No longe r eligible based on patient's age to complete this topic Hib vaccine Aged Out No longer eligi ble based on patient's age to complete this topic Meningococcal (ACWY) vaccine Aged Out No longer eligible based on patient's age to complete this topic Meningococcal B vaccine Aged Out No l onger eligible based on patient's age to complete this topic Polio vaccine Aged Out No longer elig ible based on patient's age to complete this topic Insurance [address] [place] [id number] [employer] MEDICARE [address] [place] [id number] Advance Directives * Full Code (Latest Code Status on File) Date Activated Date Inactivated Comments 04/14/2022 8:43 PM 04/15/2022 6:48 PM Healthcare Agents on File Name Relationship Healthcare Agent [facility] p Communication Kiya Bill Child Primary Decision Maker Care Teams Garde Manger Relationship Specialty Start Date End Date Yasmin Ríos MD [address] [place] [phone] PCP - General Family Medicine 04/14/22
--- OUTSIDE RECORDS SUMMARY | 2025-01-31 09:50 | XMS_ITS | Clinical Summary ---
Author Organization [facility] Address [address] [place] [address] Care Team Providers Care Differential Tester Name Role Phone Anthony Engle MD Primary Care Provider Allergies Active Allergy Reactions Criticality Noted Date Comments Celecoxib 08/23/2021 Other reaction(s): Unknown Sulfa Antibiotics Unknown 03/27/2023 Medications liothyronine (Cytomel) 5 MCG tablet Take 5 mcg by mouth in the morning. Active clonazePAM (KlonoPIN) 0.5 MG tablet Take 0.5 mg by mouth in the morning and 0.5 mg before bedtime. Active spironolactone (Aldactone) 25 MG tablet Take 25 mg by mouth in the morning. Active metoprolol tartrate (Lopressor) 25 MG tablet Take 25 mg by mouth in the morning and 25 mg before bedtime. Active levothyroxine (Synthroid, Levoxyl) 50 MCG tablet Take by mouth Daily before meals. Active clopidogrel (Plavix) 75 MG tablet Take 75 mg by mouth in the morning. Active ipratropium (Atrovent) 0.03 % nasal spray Administer 2 sprays into each nostril every 12 (twelve) hours. Active saccharomyces boulardii (Florastor) 250 MG capsule Take 250 mg by mouth in the morning and 250 mg before bedtime. Active Family History Medical History Relation Name Comments Cancer Father Heart disease Father Hypertension Father Hypertension Mother Mental illness Mother Stroke Mother Relation Name Status Comments Father Mother Social History Tobacco Use Types Packs/Day Years Used Date Smoking Tobacco: Former Cigarettes Q uit: 1968 Smokeless Tobacco: Never Tobacco Cessation:Counseling Given: Not Answered Alcohol Use [...] on file Sexual Orientation Not on file Last Filed Vital Signs Vital Sign Reading Time Taken Comments Blood Pressure 137/89 02/28/2021 12:00 PM EDT Pulse - - Temperature - - Respiratory Rate - - Oxygen Saturation - - Inhaled Oxygen Concentration - - Weight 54.4 kg (120 lb) 10/27/2024 2:06 PM EDT Height 157.5 cm (5' 2 ) 10/27/2024 2:06 PM EDT Body Mass Index 21.95 10/27/2024 2:06 PM EDT Plan of Treatment Upcoming Encounters Date Type Department Care Team (Late st Contact Info) Description 02/02/2025 1:00 PM EDT Procedure Visit [facility] [address] [place] [address] Gelacio Nolasco DPM [address] [place] [address] Health Maintenance Due Date Last Done Comments Pneumococcal Vaccine: 65+ Years (1 of 1 - PCV) 991 Influenza Vaccine (#1) 2025 Insurance MEDICARE [employer] Care Teams Differential Tester Relationship Specialty Start Date End Date Anthony Engle MD [address], [address] [address] PCP - General Pediatrics 10/27/24
--- OUTSIDE RECORDS SUMMARY | 2025-01-31 09:50 | XMS_ITS | Encounter Summary ---
Author Organization [facility] Address [facility] [id number] [address] [place] [address] Care Team Providers Care Route Cdl Driver Name Role Phone Amrita Hooks MD Primary Care Provider [phone] Reason for Visit * Reason Onset Date Comments Med Refill 01/19/2025 Encounter Details Date Type Department Care Team (Late st Contact Info) Description 01/19/2025 Refill [facility] [address] [place] [address] [address] [place] [id number] Meeta Gonzales CNA Obstructive airway disease ([facility] Social History Tobacco Use Types Packs/Day Years Used Date Smoking Tobacco: Former Cigarettes 1 7 1 956 - 0984 Smokeless Tobacco: Never Alcohol Use Standard Drinks/Week [...] Description 05/02/2025 11:30 AM EST [facility] [address] [address] Wilmer Doe MD [address] [address] documented as of this encounter Goals Goal Patient Goal Type Associated Problems Recent Progress Patient-Stated? Author d/c home General Yes Cathy Vu, RN Note: Evaluation of progress towards goal: plan is home with home health documented as of this encounter Visit Diagnoses Diagnosis Obstructive airway disease (CMS-HCC) Chronic airway obstruction, not elsewhere classified documented in this encounter Additional Health Concerns Assessment Noted Time PHQ-9 Depression Total Score: 0 10/19/19 22 1:00 PM EDT documented as of this encounter Care Teams Route Cdl Driver Relationship Specialty Start Date End Date Amrita Hooks MD [address] [place] [address] PCP - General Internal Medicine 07/27/24 documented as of this encounter
--- OUTSIDE RECORDS SUMMARY | 2025-01-31 09:50 | XMS_ITS | Encounter Summary ---
Author Organization [employer] tem Address [id number] [address] [place] [address] Care Team Providers Care Laborer Shellfish Processing Name Role Phone Amrita Hooks MD Primary Care Provider Reason for Visit * Reason Comments Med Refill Encounter Details Date Type Department Care Team (Late st Contact Info) Description 05/22/2021 Refill [facility] [address] [facility] [address] [place] [address] Wilmer Doe MD [address] [employer] [facility] [address] [place] [address] Social History Tobacco Use Types Packs/Day Years Used Date Smoking Tobacco: Former Cigarettes 1 7 1 956 - 8121 Smokeless Tobacco: Never Alcohol Use Standard Drinks/Week Comments Yes 0 (1 standard drink = 0.6 oz pur e alcohol) Occasional PHQ-2 Answer Date Recorded Total Score 0 11/27/2020 Childcare Answer Date Recorded Childcare Unknown 11/05/2018 [...] have Coronavirus / COVID-19? No / Unsure 04/26/2021 2:09 PM EST documented as of this encounter Plan of Treatment Upcoming Encounters Date Type Department Care Team (Late st Contact Info) Description 05/02/2025 11:30 AM EST Office Visit [facility], [facility] Department of [facility] [address] [address] Wilmer Doe MD [address] [address] documented as of this encounter [...] Noted Time PHQ-9 Depression Total Score: 0 11/28/19 21 9:00 AM EDT documented as of this encounter Care Teams Laborer Shellfish Processing Relationship Specialty Start Date End Date Amrita Hooks MD [address] [place] [address] PCP - General Internal Medicine 07/27/24 documented as of this encounter
--- OUTSIDE RECORDS SUMMARY | 2025-01-31 09:50 | XMS_ITS | Patient Health Record ---
Author Organization Telehealth Visit Address [address] [place] [id number] Care Team Providers Care Activity Assistant Name Role Phone Yasmin Roís Primary Care Provider Veronica Nolen Unavailable [phone] Junior Duncan Unavailable Unavailable Allergies Allergen (clinical drug ingredient) Drug/Non Drug Allergy documented on EMR Reaction Allergy Type Onset Date Status Substance with sulfonamide structure and antibacterial mechanism of action (substance) sulfa (uncoded) Unknown Allergy Active Reason For Referral No Information Medications Medication SIG (Take, Route, Fr equency, Duration) Notes Start Date End Date Status Levothyroxine Sodium Active Lisinopril Active Verapamil HCl Active Spironolactone Activ e ALPRAZolam Active Folic Acid Active Cod Liver Oil Active Garlic Active Social History Tobacco Use: Social History Observation Description Date Details (start date - stop date) Former Smoker NA - NA Alcohol Screen Question Answer Notes Did you have a drink contain ing alcohol in the past year? Yes How often did you have a dri nk containing alcohol in the past year? Monthly or less (1 point) How many drinks did you have on a typical day when you were drinking in the past year? 1 or 2 drinks (0 point) How often did you have 6 or more drinks on one occasion in the past year? Never (0 point) Points 1 Interpretation Negative Smoking Question Answer Notes Status former smoker Additional Findings: Tobacco Non-User Current no n-smoker Section Notes: Problems Problem Type SNOMED Code ICD Code Onset Dates Problem Status W/U Status Risk Notes Problem Diarrhea, unspecified type (R19.7) Active confirmed Plan Of Treatment No Information Insurance Providers Payer Name Payer Address Payer Phone Subscriber Number Group Number Insured Name Patient Relationship to Insured Coverage Start Date Coverage End Date [place] [address] [place] [address] [id number] Ayana Alves Self - patient is the insured [facility] [address] [address] [place] [id number] Ayana Alves Self - patient is the insured Medical (General) History Medical History History ICD Code hypertension Surgical History Surgery Date(Month/Year) tonsillectomy thyroidectomy, subtotal cataract extraction, bilateral back surgery colonoscopy (06/2016, 09/2009, 07/2004, ) EGD (06/2016)
--- OUTSIDE RECORDS SUMMARY | 2025-01-31 09:50 | XMS_ITS | Clinical Summary ---
Author Organization [employer] tem Address [id number] [address] [place] [address] Care Team Providers Care Head Of Strategy Name Role Phone Amrita Hooks MD Primary Care Provider [phone] Allergies Active Allergy Reactions Criticality Noted Date Comments Celecoxib 08/23/2021 Other reaction(s): Unknown Other 05/02/2023 opioids Pantoprazole Low 02/28/2020 Sulfa (Sulfonamide Antibiotics) Rash Low 04/18/2014 hives Medications spironolactone (ALDACTONE) 25 mg tablet Take 1 tablet (25 mg total) by mouth in the morning. Active Lactobacillus acidophilus (PROBIOTIC ORAL) Take by mouth. Active VITAMIN D3 125 mcg (5,000 unit) tablet TAKE 1 TABLET BY MOUTH EVERY DAY IN THE MORNING 90 tablet 3 04/29/20 24 Active liothyronine (CYTOMEL) 5 MCG tabletIndications: Postprocedural hypothyroidism,Pos toperative hypothyroidism TAKE 1 TABLET BY MOUTH EVERY DAY ON AN EMPTY STOMACH 90 tablet 3 06/11/19 25 Active levothyroxine (SYNTHROID, LEVOTHROID) 50 MCG tabletIndications: Postprocedural hypothyroidism,Pos toperative hypothyroidism TAKE 1 TABLET BY MOUTH EVERY DAY IN THE MORNING ON EMPTY STOMACH FOR 90 DAYS 90 tablet 3 06/28/19 25 Active clopidogreL (PLAVIX) 75 mg tablet TAKE 1 TABLET BY MOUTH EVERY DAY 90 tablet 1 11/15/19 25 Active clonazePAM (KlonoPIN) 0.5 mg tabletIndications: Anxiety Take 1 tablet (0.5 mg total) by mouth 2 (two) times a day as needed for anxiety. 60 tablet 01/05/20 25 Active ipratropium (ATROVENT) 42 mcg (0.06 %) nasal sprayIndications:O bstructive airway disease (CMS-HCC) Administer 1 spray into each nostril in the morning. 15 mL 3 01/24/20 25 Active hydrocortisone (ANUSOL-HC) 2.5 % rectal cream Insert 1 Application into the rectum in the morning and 1 Application before bedtime. 30 g 1 01/24/20 25 Active ipratropium (ATROVENT) 42 mcg (0.06 %) nasal sprayIndications:O bstructive airway disease (CMS-HCC) Administer 1 spray into each nostril in the morning. 15 mL 3 11/09/19 25 025 Discontin ued(Reord er) clonazePAM (KlonoPIN) 0.5 mg tabletIndications: Anxiety TAKE 1 TABLET (0.5 MG TOTAL) BY MOUTH 2 (TWO) TIMES A DAY NEEDED FOR ANXIETY. 60 tablet 11/23/19 25 025 Discontin ued(Reord er) hydrocortisone (ANUSOL-HC) 2.5 % rectal cream Insert 1 Application into the rectum in the morning and 1 Application before bedtime. 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 Tardive dyskinesia 11/27/2020 Cerebrovascular disease 11/27/2020 Other fatigue 04/18/2020 Abnormal involuntary movements 01/05/2020 TIA (transient ischemic attack) 01/08/2019 Sinus node dysfunction 11/16/2018 Presence of cardiac pacemaker- MDT 11/16/2018 Encounter for postoperative wound check 11/17/19 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 2018 Symptomatic bradycardia 11/04/2018 Paroxysmal atrial fibrillation 11/03/2018 Pain 11/01/2018 Thrombocytopenia 11/01/2018 Mitral insufficiency 10/30/2018 Severe mitral regurgitation 08/31/2018 Change in bowel habits 04/27/2018 Diarrhea 04/27/2018 Hypertension Mitral valve prolapse Resolved Problems Problem Noted Date Diagnosed Date Resolved Date Anemia due to other bone marrow failure 07/28/2024 07/28/2024 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 (ventilator) status 5 07/28/2024 Subdural hematoma 07/28/2024 07/28/2024 Memory problem 04/18/2020 07/27/2024 History of TIA (transient ischemic attack) 11/18/2019 05/15/2022 Warfarin anticoagulation 11/18/201912/2021 Encounters Date Type Department Care Team Description 01/19/2025 Refill [facility] [address] [place] [address] [place] [phone] Meeta Gonzales CNA Obstructive airway disease ([facility]) 01/04/2025 Refill [facility] [address] [place] [address] [place] [address] Meeta Gonzales CNA Anxiety 11/26/2024 2:30 PM EDT Infusion Sydnie L [facility] - Medical Oncology [address] [place] [address] Osteopenia, unspecified location (Primary Dx) 11/25/2024 Travel 11/22/2024 Orders Only [facility] [address] [place] [phone] Kallie Bright APRN-YEAST SUPERVISOR 11/21/2024 Refill [facility] [address] [place] [address] [place] [phone] Amrita Hooks MD Anxiety 11/14/2024 Refill [facility] [address] [facility] [address] [place] [address] Wilmer Doe MD 11/08/2024 Refill [facility] [address] [place] [address] [place] [address] Abeba Hernandez CMA Obstructive airway disease ([place]) (Primary Dx) from Last 3 Months Immunizations No known immunizations Family History Medical History Relation Name Comments Arthritis Father Asthma Father Clotting disorder Father Colon cancer Father Heart attack Father Hyperlipidemia Father Hypertension Father Alcohol abuse Mother Arthritis Mother Dementia Mother Hypertension Mother Mental illness Mother DEPRESSION, A NXIETY Migraines Mother Stroke Mother Ulcerative colitis Mother Anesthesia problems Neg Hx Breast cancer Neg Hx Relation Name Status Comments Father Mother Social History Tobacco Use Types Packs/Day Years Used Date Smoking Tobacco: Former Cigarettes 1 7 1 956 - 1963 Smokeless Tobacco: Never Tobacco Cessation:Counseling Given: Not [...] Orientation Straight 07/07/2019 4: 39 PM EST Last Filed Vital Signs Vital Sign Reading Time Taken Comments Blood Pressure 149/87 11/26/2024 2:20 PM EDT Pulse 91 11/26/2024 2:20 PM EDT Temperature 36.7 C (98 F) 11/26/2024 2:20 PM EDT Respiratory Rate 18 11/26/2024 2:20 PM EDT Oxygen Saturation 97% 11/26/2024 2:20 PM EDT Inhaled Oxygen Concentration - - Weight 55.6 kg (122 lb 9.6 oz) 11/26/2024 2:20 P M EDT Height 154.9 cm (5' 0.98 ) 11/26/2024 2:20 PM ED T Body Mass Index 23.18 11/26/2024 2:20 PM EDT Plan of Treatment Upcoming Encounters Date Type Department Care Team (Late st Contact Info) Description 05/02/2025 11:30 AM EST Office Visit [facility] A Department of [address] [address] Wilmer Doe MD [address] [facility] [address] [place] [address] Health Maintenance Due Date Last Done Comments Medicare Annual Wellness Visit 1941 Depression Screening 1953 DTaP,Tdap and Td Vaccines (1 - Tdap) 02/23/1960 Zoster (Shingles) Vaccine (1 of 2) 1991 Influenza Vaccine 02/07/2025 Fall Risk Screening 07/27/2025 07/27/2024 Tobacco Screening 11/26/2025 11/26/2024 Goals Goal Patient Goal Type Associated Problems Recent Progress Patient-Stated? Author d/c home General Yes Cathy Vu, RN Note: Evaluation of progress towards goal: plan is home with home health Medical Devices Implanted Type Area Computer Engineer Device Identifier Shelf Expiration Date Model / Serial / Lot Ring Annuloplasty 28mm - [id number] - [id number] Implanted:Qty: 1 on 10/30/2018 by Jero Lima MD at [facility] Annuloplasty Ring N/A: Heart Mitral Valve [employer] [facility] [place] 12/11/2022 [id number] / [id number] / Ring Annuloplast Contour 3d 26 - [id number] - [id number] Implanted:Qty: 1 on 10/30/2018 by Jero Lima MD at [facility] Annuloplasty Ring N/A: Heart Tricuspid Valve [employer] [facility] [place] 05/26/2023 [id number] / [id number] / Lead Capsure Fix Novus 5076-52 - [id number] - [id number] Implanted:Qty: 1 on 11/04/2018 by Lori Yo MD at [facility] Implant Lead Left: Chest [employer] [facility] [place] 08/31/2020 5076-52 / [id number] / Lead Capsure Fix Novus 5076-45 - [id number] - [id number] Implanted:Qty: 1 on 11/04/2018 by Lori Yo MD at [facility] Implant Lead Left: Arterial [employer] [place] 09/01/2020 5076-45 / [id number] / Pcmkr Meghan Dubon - [id number] - [id number] Implanted:Qty: 1 on 11/04/2018 by Lori Yo MD at [facility] Pacemaker Left: Arterial [employer] 04/05/2020 [id number] / [id number] / Procedures Procedure Name Priority Date/Time Associated Diagnosis Comments [place] REM INTERROG PM/LDLS PM <90 D PHYS/QHP Routine 12/03/2024 1:40 AM EDT CALCIUM Routine 11/25/2024 1:13 PM EDT Osteopenia, unspecified location CREATININE, SERUM Routine 11/25/2024 1:1 3 PM EDT Osteopenia, unspecified location VITAMIN D 25 HYDROXY Routine 11/25/2024 1:13 PM EDT Osteopenia, unspecified location from Last 3 Months Results * Remote Device Check (12/03/2024 1:40 AM EDT) Anatomical Region Laterality Modality Other 12/03/2024 1:40 AM EDT Jackelin Shay MD HEALTH MAINTENANCE Final Result * Vitamin D 25 hydroxy (11/25/2024 1:13 PM EDT) VITAMIN D 25 HYD TOT 71.2 30.0 - 100.0 ng/mL 11/25/2024 6:47 PM EDT [facility] Blood Venipuncture / Unknown 11/25/2024 1:13 PM EDT 11/25/2024 1:13 PM EDT Narrative [facility] - 11/25/2024 6:47 PM EDT Vitamin D status 25 [place] Vitamin D Deficiency <20 ng/mL Insufficiency 20-29 ng/mL Sufficiency 30-100 ng/mL Toxicity >100 ng/mL NOTE: A pediatric reference range has not been established by the wafer fab technician of this kit. The [place] [employer] recommends a Vitamin D level of = or >20ng/mL in infants and children. Deepika Najera MD LAB BLOOD ORDERABLES Final Resul t Performing Organization Address [facility] de Phone Number [facility] [address] [place] [address], * Creatinine, serum (11/25/2024 1:13 PM EDT) CREATININE 0.81 0.40 - 1.00 mg/dL 11/25/2024 6:27 PM EDT [facility] Comment:METHOD TRACEABLE TO IDIA STANDARD EGFR Non-Race Dependent 72 >=60 ml/min/1.7 3sq.m 11/25/2024 6:27 PM EDT [facility] Comment: Reported eGFR is based on the CKD-EPI 2020 equation that does not use a race coefficient. Blood Venipuncture / Unknown 11/25/2024 1:13 PM EDT 11/25/2024 1:13 PM EDT Deepika Najera MD LAB BLOOD ORDERABLES Final Resul t Performing Organization Address [facility] Co de Phone Number [facility] [address] [place] [address], [place] [phone] * Calcium (11/25/2024 1:13 PM EDT) CALCIUM 10.4 8.5 - 10.5 mg/dL 11/25/2024 6:27 PM EDT [facility] Blood Venipuncture / Unknown 11/25/2024 1:13 PM EDT 11/25/2024 1:13 PM EDT us Deepika Najera MD LAB BLOOD ORDERABLES Final Resul t [facility] [address] [place] [address], [place] [phone] from Last 3 Months Insurance [employer] [place] Advance Directives * Full Code (Latest Code Status on File) Date Activated Date Inactivated Comments 11/04/2018 3:48 AM 11/05/2018 4:08 PM * Full Code Date Activated Date Inactivated Comments 10/30/2018 12:43 PM 11/03/2018 7:11 PM Care Teams Head Of Strategy Relationship Specialty Start Date End Date Amrita Hooks MD [address] [place] [address] PCP - General Internal Medicine 07/27/24
--- OUTSIDE RECORDS SUMMARY | 2025-01-31 09:50 | XMS_ITS | Encounter Summary ---
Author Organization [facility] tem Address [id number] [address] [place] [address] Care Team Providers Care Application Developer Manager Name Role Phone Amrita Hooks MD Primary Care Provider [phone] Reason for Visit * Reason Onset Date Comments EEG 10/11/2024 Labs Only 10/11/2024 Encounter Details Date Type Department Care Team (Late st Contact Info) Description 10/11/2024 Telephone [facility], A Department of [facility] [address] [facility] [address] [place] [phone] Elizabeth Billings EEG; Labs Only Social History Tobacco Use Types Packs/Day Years Used Date Smoking Tobacco: Former Cigarettes 1 7 1 956 - 1118 Smokeless Tobacco: Never Alcohol Use Standard Drinks/Week [...] encounter Miscellaneous Notes * Telephone Encounter - Elizabeth Billings - 10/11/2024 9:53 AM EDT Patient stated that they have decided not to proceed with EEG. Patient stated that they do not wantto know if patient has dementia because it will ruin their enjoyment of remaining years of life. Patient stated that they would like to make provider aware that labs have been completed. documented in this encounter Plan of Treatment Upcoming Encounters Date Type Department Care Team (Late st Contact Info) Description 05/02/2025 11:30 AM EST Office Visit [facility] Department of [facility] [address] [facility] [place] [address] [address] Wilmer Doe MD [address] [employer] [address] [address] documented as of this encounter [...] documented as of this encounter Care Teams Application Developer Manager Relationship Specialty Start Date End Date Amrita Hooks MD [address] [place] [address] PCP - General Internal Medicine 07/27/24 documented as of this encounter
--- OUTSIDE RECORDS SUMMARY | 2025-01-31 09:50 | XMS_ITS | Encounter Summary ---
Author Organization [facility] tem Address [id number] [address] [place] [address] Care Team Providers Care Surveying Or Spatial Science Technician Name Role Phone Amrita Hooks MD Primary Care Provider [phone] Encounter Details Date Type Department Care Team (Late Contact Info) Description 05/15/2022 Orders Only [facility] [address] [place] [address] External, Scanning Provider Social History Tobacco Use Types Packs/Day Years Used Date Smoking Tobacco: Former Cigarettes 1 7 1 376 - 4551 Smokeless Tobacco: Never Alcohol Use Standard Drinks/Week [...] have Coronavirus / COVID-19? No / Unsure 05/15/2022 10:23 AM EST documented as of this encounter Plan of Treatment Upcoming Encounters Date Type Department Care Team (Late Contact Info) Description 05/02/2025 11:30 AM EST Office Visit [facility], [facility] Department of [facility] [address] [address] Wilmer Doe MD [address] [address] documented as of this encounter Goals Goal Patient Goal Type Associated Problems Recent Progress Patient-Stated? Author d/c home General Yes Cathy Vu, RN Note: Evaluation of progress towards goal: plan is home with home health documented as of this encounter Procedures Procedure Name Priority Date/Time Associated Diagnosis Comments DEVICE INTERROGATION Routine 05/15/2022 documented in this encounter Results * Device Interrogation (05/15/2022) Anatomical Region Laterality Modality Other us Scanning Provider External [facility] O RDERABLES Final Result documented in this encounter Visit Diagnoses Not on filedocumented in this encounter Additional Health Concerns Assessment Noted Time PHQ-9 Depression Total Score: 0 10/19/19 22 1:00 PM EDT documented as of this encounter Care Teams Surveying Or Spatial Science Technician Relationship Specialty Start Date End Date Amrita Hooks MD [address] [facility] [place] [address] PCP - General Internal Medicine 07/27/24 documented as of this encounter
--- OUTSIDE RECORDS SUMMARY | 2025-01-31 09:50 | XMS_ITS | Clinical Summary ---
Author Organization [facility] Address [address] [place] [id number] Care Team Providers Care Plasterer Maintenance Name Role Phone Yasmin Ríos MD Primary Care Provider [phone] Kwesi Tilley MD, Uriel Maynardford Unavailable Allergies Active Allergy Reactions Criticality Noted Date Comments Sulfa (Sulfonamide Antibiotics) Rash 04/09 Medications ALPRAZolam (XANAX) 0.25 mg tablet Take 0.25 mg by mouth three times daily. Active warfarin (COUMADIN) 10 mg tablet 10mg alternating with 15mg nightly 0 Active levothyroxine (LEVO-T) 50 mcg tablet Take 50 mcg by mouth daily before breakfast. Active metoprolol tartrate, short acting, (LOPRESSOR) 25 mg tablet Take 12.5 mg by mouth twice daily. 9 Active aspirin, enteric coated (ASPIRIN, ENTERIC COATED) 81 mg EC tablet Take 81 mg by mouth once daily. Active calcium-carbona te-vitamin D3 500 mg(1,250mg) -200 unit per tablet Take 2 tablets by mouth twice daily. Active donepezil (ARICEPT) 10 mg tablet Take 10 mg by mouth once daily. 0 Active ipratropium bromide (ATROVENT) 42 mcg (0.06 %) nasal spray Use 2 Sprays in the nose once daily. Active OTC PRODUCT Kenzen BDZ Support Strength and Density 2 tablets once a day at bedtime Active OTC PRODUCT 1 tablet three times daily. Strophantil Active spironolactone (ALDACTONE) 25 mg tablet Take 25 mg by mouth once daily. [address] (PROTONIX) 40 mg tablet Take 40 mg by mouth once daily. Active ferrous sulfate 325 mg (65 mg iron) tablet Take 325 mg by mouth twice daily. Active bisacodyl EC (DULCOLAX) 5 mg EC tablet as directed. 0 Active clonazePAM (KLONOPIN) 0.5 mg tablet Take 0.5 mg by mouth twice daily as needed. 0 Active Active Problems Problem Noted Date Diagnosed Date Iron deficiency anemia due to chronic blood loss 01/13/2020 S/P mitral valve repair 11/18/2019 S/P tricuspid valve repair 11/18/2019 Fibrillation, atrial 11/18/2019 History of TIA (transient ischemic attack) 11/17 Warfarin anticoagulation 11/18/2019 Family History Medical History Relation Comments Stroke Mother Relation Status Comments Mother Social History Tobacco Use Types Packs/Day Years Used Date Smoking Tobacco: Former Cigarettes Q uit: 06/09/1947 Smokeless Tobacco: Never Alcohol Use Standard Drinks/Week Comments Yes 1 (1 standard drink = 0.6 oz pur e alcohol) AUDIT-C Answer Date Recorded Q1: How often do you have a drink containing alc ohol? Monthly or less 01/12/2020 Q2: How many drinks containi ng alcohol do you have on a typical day when you are drinking? 1 or 2 01/12/2020 Q3: How often do you have si x or more drinks on one occasion? Never 01/12/2020 PHQ-2 Answer Date Recorded PHQ-2 score 0 02/09/2020 Area Deprivation Index Answer Date Casa rded National Score (1-100), lower number is lower ri sk Not on file 05/16/2020 State Score (1-10), lower number is lower risk N ot on file 05/16/2020 Data from: https://www.neighborhoodatlas.medicine.[facility].edu/. Last address used for calculation Not on file 05/16/2020 Comments No Sex and Gender Information Value Date Recorded Sex Assigned at Female 05/01/2020 7:28 AM EST Legal Sex Female 3:32 PM EDT Gender Identity Female 05/01/2020 7:29 AM EST Sexual Orientation Straight 05/01/2020 7: 28 AM EST Last Filed Vital Signs Vital Sign Reading Time Taken Comments Blood Pressure 148/71 05/03/2020 2:45 PM EST Pulse 77 05/03/2020 2:45 PM EST Temperature 36.8 C (98.3 F) 05/03/2020 2:45 PM EST Respiratory Rate 16 05/03/2020 2:45 PM EST Oxygen Saturation 99% 05/03/2020 2:45 PM EST Inhaled Oxygen Concentration - - Weight 56.6 kg (124 lb 12.8 oz) 05/03/2020 2:45 PM EST Height 154.9 cm (5' 0.98 ) 05/03/2020 2:45 PM ES T Body Mass Index 23.59 05/03/2020 2:45 PM EST Plan of Treatment Health Maintenance Due Date Last Done Comments Anxiety Screening 1958 Depression Screening 1958 DTaP,Tdap,Td Vaccine (1 - Tdap) 02/23/1960 Pneumococcal Vaccine: 50+ (1 of 1 - PCV) 1991 Shingrix Vaccine (1 of 2) 1991 Bone Density Screening 2006 RSV Vaccine (1 - 1-dose 75+ series) 02/23/2016 Diabetes Screening 05/03/2023 05/03/2020, 0 02/09/2020, 01/12/2020, Additional history exists Advance Directive Discussion 06/09/2024 Influenza Vaccine (#1) 2025 Colonoscopy Discontinued 01/19/2020 Colorectal Cancer Screening Discontinued CT Colonography Discontinued Cologuard (FIT-DNA) Discontinued Fecal Occult Blood Discontinued Sigmoidoscopy Discontinued Medical Devices Implanted Type Area Atmospheric Technician Device Identifier Shelf Expiration Date Model / Serial / Lot [id number] [id number] Implanted:11/04 (Quantity not on file) Pacemaker [employer] [id number] Meghan PEÑALOZA / [id number] / Procedures Procedure Name Priority Date/Time Associated Diagnosis Comments COMPREHENSIVE METABOLIC PANEL Routine 05/03/2020 2:33 PM EST Iron deficiency anemia due to chronic blood loss from Last 3 Months or Most Recently Relevant to Health Maintenance Results * (ABNORMAL) COMP METABOLIC PANEL (05/03/2020 2:33 PM EST) Protein, Total 7.1 6.3 - 8.0 g/dL 05/03/2020 3:09 PM [facility] Albumin 4.9 3.9 - 4.9 g/dL 05/03/2020 3:09 PM [facility] Calcium 10.8(H) 8.5 - 10.2 mg/dL 05/03/2020 3:09 PM [facility] Bilirubin, Total 0.2 0.2 - 1.3 mg/dL 05/03/2020 3:09 PM [facility] Alkaline Phosphatase 95 34 - 123 U/L 05/03/2020 3:09 PM [facility] AST 25 13 - 35 U/L 05/03/2020 3:09 PM [facility] Glucose 133(H) 74 - 99 mg/dL 05/03/2020 3:09 PM [facility] Comment: The [place] Diabetes Association (ADA) provides guidance for cutoff values for fasting glucose and random glucose. The ADA defines fasting as no caloric intake for at least 8 hours. Fasting plasma glucose results between 100 to 125 mg/dL indicate increased risk for diabetes (prediabetes). Fasting plasma glucose results greater than or equal to 126 mg/dL meet the criteria for diagnosis of diabetes. In the absence of unequivocal hyperglycemia, results should be confirmed by repeat testing. In a patient with classic symptoms of hyperglycemia or hyperglycemic crisis, random plasma glucose results greater than or equal to 200 mg/dL meet the criteria for diagnosis of diabetes. Reference: Standards of Medical Care in Diabetes 2016, [place] Diabetes Association. Diabetes Care. 2016.39(Suppl 1). BUN 25(H) 7 - 21 mg/dL 05/03/2020 3:09 PM [facility] Creatinine 0.75 0.58 - 0.96 mg/dL 05/03/2020 3:09 PM [facility] Sodium 138 136 - 144 mmol/L 05/03/2020 3:09 PM [facility] Potassium 4.1 3.7 - 5.1 mmol/L 05/03/2020 3:09 PM [facility] Chloride 103 97 - 105 mmol/L 05/03/2020 3:09 PM [facility] CO2 27 22 - 30 mmol/L 05/03/2020 3:09 PM EST [facility] Anion Gap 8(L) 9 - 18 mmol/L 05/03/2020 3:09 PM EST [facility] ALT 25 7 - 38 U/L 05/03/2020 3:09 PM EST [facility] eGFR- >60 05/03/2020 3:09 PM EST [facility] eGFR-All Other Races >60 . 05/03/2020 3:09 PM [facility] Comment: eGFR (Estimated GFR) Units of measure: mL/min/1.73 meters squared eGFR is derived from the reexpressed MDRD Study equation using the following parameters: serum creatinine, age, gender and race. The creatinine assay has been calibrated to be traceable to IDMS. An eGFR <60 mL/min/1.73m2 for >3 months is consistent with chronic kidney disease. Refer to KDOQI guidelines for clinical interpretation. In patients with unstable renal function, e.g. those with acute kidney injury, the eGFR may not accurately reflect actual GFR. Blood specimen (specimen) BLOOD SPECIMEN / Unknown 05/03/2020 2:33 PM EST 05/03/2020 2:35 PM EST Lloyd Aquino MD LABORATORY Final Result [address] [address] [facility] [address] from Last 3 Months or Most Recently Relevant to Health Maintenance Insurance MEDICARE MMO MEDICARE SUPPLEMENT Care Teams Plasterer Maintenance Relationship Specialty Start Date End Date Yasmin Ríos MD [address] [place] [id number] PCP - General Family Medicine 03/30/14 Uriel Orosco Jr., MD [address] [facility] [place] [address] Cardiology 11/18/19
--- OUTSIDE RECORDS SUMMARY | 2025-01-31 09:50 | XMS_ITS | Encounter Summary ---
Author Organization [employer] Address [id number] [address] [place] [address] Care Team Providers Care Traffic Circuit Engineer Name Role Phone Amrita Hooks MD Primary Care Provider [phone] Reason for Visit * Reason Comments Med Refill Encounter Details Date Type Department Care Team (Late st Contact Info) Description 08/28/2021 Refill [facility] [address] [facility] [address] [place] [address] Wilmer Doe MD [address] [facility] [address] [place] [address] Social History Tobacco Use Types Packs/Day Years Used Date Smoking Tobacco: Former Cigarettes 1 7 1 956 - 7266 Smokeless Tobacco: Never Alcohol Use Standard Drinks/Week [...] Office Visit [facility] [address] [address] Wilmer Doe MD [address] [address] documented as of this encounter [...] documented as of this encounter Care Teams Traffic Circuit Engineer Relationship Specialty Start Date End Date Amrita Hooks MD [address] [facility] [place] [place] [address] PCP - General Internal Medicine 07/27/24 documented as of this encounter
--- OUTSIDE RECORDS SUMMARY | 2025-01-31 09:59 | XMS_ITS | CCD ---
Author Organization 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 Hand Name Role Phone Jessica Maxwell MD Primary Care Provider Jayant Ambrocio Unavailable Jeb Salas Unavailable PROVIDER, UNKNOWN Admitting Unavailable PROVIDER, UNKNOWN Attending Unavailable Jessica Maxwell MD Primary Care Provider MITALI NARAYAN Consulting Unavailable JESSICA MAXWELL Primary Care Unavailable MITALI NARAYAN Admitting Unavailable MITALI NARAYAN Attending Unavailable MITALI NARAYAN MD Consulting Unavailable EDIN BOO Attending Unavailable VIVIAN DAMON Referring Unavailable JESSICA MAXWELL Primary Care Unavailable Jessica Maxwell Unavailable DO Jeb Salas Attending Provider [phone] Jeb Salas Admitting Unavailable Jeb Salas Attending [...] Consulting Unavailable MANUEL KOCH Consulting Unavailable SHAHZAD TOAMS Consulting Unavailable FELIPA HOPPER Consulting Unavailable ALISSA, [...] DR JAYANT AMBROCIO Admitting Unavailable ALISSA, DR JESSCIA Hale Primary Care Unavailable DR JAYANT AMBROCIO Attending Unavailable David Arellano DO Primary Care Provider Jessica Maxwell MD Primary Care Provider [phone] DEEPIKA GARCIA Attending Unavailable ALISSA, JESSICA Hale Referring Unavailable MAXWELL, JESSICA E Primary Care Unavailable MOUNA DOE Attending Unavailable ALISSA JESSICA E Referring Unavailable JESSEE, MUHAMID M Primary Care Unavailable JESSEE, MUHAMID M Attending Unavailable JESSICA MAXWELL Referring Unavailable JESSEE, MUHAMID M Primary Care Unavailable Jessee Halima GUILLERMO Primary Care Provider Jessee Halima GUILLERMO Primary Care Provider JESSICA MAXWELL Primary Care Unavailable EDIN POE Referring Unavailable EDIN POE Attending Unavailable DEEPIKA GARCIA Attending Unavailable JESSICA MAXWELL Referring Unavailable JESSEE, MUHAMID M Primary Care Unavailable DEEPIKA GARCIA Referring Unavailable JESSEE, MUHAMID M Primary Care Unavailable Shaik EAGLE, Anthony Martinez Primary Care Provider WERNER NOLASCO Attending Unavailable WERNER NOLASCO Attending Unavailable MAXWELL, JESSICA E Primary Care Unavailable ARNOLDBO H Attending Unavailable ARNOLDBO H Attending Unavailable ARNOLD, BO H Referring Unavailable MAXWELL, JESSICA E Primary Care Unavailable ARNOLDBO H Attending Unavailable ARNOLD, BO H Referring Unavailable MAXWELL, JESSICA E Primary Care Unavailable SAPORITAASHELYIE L Referring Unavailable MAXWELL, JESSICA E Primary Care Unavailable SAPORITAASHELYIE L Referring Unavailable MAXWELL, JESSICA E Primary Care Unavailable MAXWELL, JESSICA E Referring Unavailable MAXWELL, JESSICA E Primary Care Unavailable ALLEN VELASCO Attending Unavailable GABRIELA MAXWELLIA E Referring Unavailable MAXWELL, JESSICA E Primary Care Unavailable ELVIE PARR Referring Unavailable MAXWELL, JESSICA E Primary Care Unavailable JAYANT AMBROCIO JR Referring Unavailable JESSEE, MUHAMID M Primary Care Unavailable DEEPIKA GARCIA Referring Unavailable JESSEE, MUHAMID M Primary Care Unavailable DEEPIKA GARCIA Referring Unavailable JESSEE, MUHAMID M Primary Care Unavailable Allergies Allergy Classification Reported Allergen(s) Allergy Type Date of Onset Reaction(s) Facility (20 sources) Sulfonamides (Antibiotic); 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: [SULFA (SULFONAMIDE ANTIBIOTICS)] Drug Intolerance 04-18-20 14 Rash, Unknown [facility] (1 source) sulfaSALAzine Drug Allergy Unknown [facility] Other (1 source) Sulfonamides (Antibiotic) Propensity to adverse reactions to drug 04-14-20 22 [facility] (2 sources) Sulfonamides (Antibiotic) Drug allergy (disorder) 12-15-19 13 [facility] (20 sources) celecoxib; 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: [CELECOXIB] Drug Allergy 05-24-20 13 Unknown, [facility] Comment on above: Onset Date: 05/24/20 13 (1 source) patient allergy list reviewed by nurse or physicia Propensity to adverse reactions 02-03-20 19 Comment:Done [facility] Other (1 source) Allergies Reconciled Propensity to adverse reactions Unknown [facility] Other (5 sources) celecoxib Drug Allergy 08-24-19 [facility] (17 sources) pantoprazole; 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: [PANTOPRAZOLE] Drug Allergy 02-28-20 [facility] (17 sources) Other; 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: [OTHER] Propensity to adverse reactions 05-02-20 [facility] Work Phone: Medications Current Medications Medication Drug Class(es) Dates Sig (Normalized) Sig (Original) acetaminophen 325 mg oral tablet (8 sources) Start: 12-01-2023 take 2 tablets by mouth every six hours as needed for pain acetaminophen (TylenoL) 325 mg tablet Take 2 tablets (650 mg total) by mouth every 6 (six) hours as needed for pain. 30 tablet 12/01/2023 Active Start: 04-14-2022 acetaminophen (TYLENOL) tablet 1,000 mg take 1 tablet by corby th every six hours Tylenol Extra Strength 500 MG 1 tablet as needed Orally every 6 hrs Not-Taking/PRN aspirin 81 mg delayed release oral tablet (20 sources) Platelet Aggregation Inhibitor, Nonsteroidal Anti-inflammatory Drug Start: 09-17-2023 take 1 tablet by mouth twice daily Aspirin 81 mg tablet,delayed release (DR/EC) Active 81 MG PO Twice daily September 16, 2023 11:00pm [facility] tablet Orally BID; Note: Source Status: Not-TakingundefinedPRN; Refills: 0; Qty: 28 Tablet; Provider: Ginna [...] Take 81 mg by mouth once daily. cholecalciferol 0.125 mg oral tablet (13 sources) Vitamin D Start: 04-29-20 24 take 1 tablet by mouth once daily in the morning VITAMIN D3 125 mcg (5,000 unit) tablet TAKE 1 TABLET BY MOUTH EVERY DAY IN THE MORNING 90 tablet 3 04/29/2024 Active clonazePAM 0.5 mg oral tablet (20 sources) Benzodiazepine Start: 04-15-20 take 0.25 mg by mouth three times daily as needed 0.25 mg, Oral, 3 TIMES DAILY PRN, Starting on Fri04/15/22 at 0013, Until Discontinued, Anxiety, facial tic Start: 12-20-2019 End: 01-04-2025 take 1 tablet by mouth twice daily as needed for anxiety clonazePAM (KlonoPIN) 0.5 mg tablet Indications: Anxiety Take 1 tablet (0.5 mg total) by mouth 2 (two) times a day as needed for anxiety. 60 tablet 01/04/2025 Active take 0.25 mg by mout h [...] as needed. clopidogrel 75 mg oral tablet (20 sources) P2Y12 Platelet Inhibitor Start: 03-25-2024 End: 11-14-2024 take 1 tablet by mouth once daily clopidogreL (PLAVIX) 75 mg tablet TAKE 1 TABLET BY MOUTH EVERY DAY 90 tablet 1 11/14/2024 Active Start: 04-29-2022 take 1 tablet by corby th once daily clopidogrel (PLAVIX) 75 MG tablet Take 1 tablet by mouth daily Hold plavix x 2 weeks . Follow up with primary providers 30 tablet 3 04/29/2022 Active End: 04-15-2022 take 1 tablet by mouth in the morning clopidogrel (Plavix) 75 MG tablet Take 75 mg by mouth in the morning. Active fluconazole 150 mg oral tablet (2 sources) Azole Antifungal Start: 12-30-2023 Fluconazole 1 50 mg tablet Active 150 MG PO Q3D 2 December 29, 2023 11:00pm hydrocortisone 25 mg/ml topical cream (17 sources) Corticosteroid Start: 01-23-2025 hydrocortisone (ANUSOL-HC) 2.5 % rectal cream Insert 1 Application into the rectum in the morning and 1 Application before bedtime. 30 g 1 01/23/2025 Active Start: 08-22-2023 Hydrocortisone 2.5 % cream with perineal applicator Active 0 .ROUTE .COMPLEX August 22, 2023 12:33pm APPLY TO AFFECTED AREA 1-2 TIMES DAILY NEEDED Start: 08-22-2023 End: 08-22-2023 Hydrocortisone 2.5 % cream D iscontinued 1 APPLIC TOPICAL August 21, 2023 11:00pm August 22, 2023 12:33pm APPLY TO AFFECTED AREA 1-2 TIMES DAILY NEEDED End: 01-19-2025 hydrocortisone (ANUSOL-HC) 2 .5 % rectal cream Insert 1 Application into the rectum in the morning and 1 Application before bedtime. 01/19/2025 Discontinued (Reorder) Hydrocortisone ( Perianal) 2.5 % APPLY TO AFFECTED AREA 1-2 TIMES DAILY NEEDED for 15 Active Hydrocortisone ( Perianal) 2.5 % APPLY TO AFFECTED AREA 1-2 TIMES DAILY NEEDED for 15 Active ipratropium bromide 0.042 mg/actuat metered dose nasal spray (20 sources) Anticholinergic Start: 01-23-2025 take 1 spray(s) nasal route in the morning ipratropium (ATROVENT) 42 mcg (0.06 %) nasal spray Indications: Obstructive airway disease ([facility]) Administer 1 spray into each nostril in the morning. 15 mL 3 01/23/2025 Active Start: 11-08-2024 End: 01-19-2025 take 1 spray(s) nasal route in the morning ipratropium (ATROVENT) 42 mcg (0.06 %) nasal spray Indications: Obstructive airway disease [place] Administer 1 spray into each nostril in the morning. 15 mL 3 11/08/2024 01/19/2025 Discontinued (Reorder) Start: 10-20-2023 take 2 spray(s) nasa l route once daily Ipratropium [place] 42 mcg (0.06 %) spray,non-aerosol Active 0 .ROUTE .COMPLEX 45 October 20, 2023 11:40am SPRAY 2 SPRAYS INTO EACH NOSTRIL ONCE A DAY Start: 09-17-2023 End: 10-20-2023 take 2 spray(s) nasal route once daily Ipratropium [place] 42 mcg (0.06 %) spray,non-aerosol Discontinued 2 SPRAY INTRANASAL Daily September 16, 2023 11:00pm October 20, 2023 11:40am [facility] sprays in each nostril Nasally Once a Day; Note: Source Status: Taking; Refills: 5; Provider: Alissa Hale ipratropium (Atr ovent) 0.03 % nasal spray Administer 2 sprays into each nostril every 12 (twelve) hours. Active take 2 spray(s) nasa l route once daily Ipratropium [place] 0.06 % 2 sprays in each nostril Nasally Once a Day for 30 days Active take 2 spray(s) nasa l route once daily Ipratropium [place] 0.06 % 2 sprays in each nostril Nasally Once a Day for 30 days Active take 2 spray(s) nasa l route three times daily Ipratropium [place] 0.06 % 2 sprays in each nostril Nasally Three times a day Active take 2 spray(s) nasa l route four times daily ipratropium (ATROVENT) 0.06 % nasal spray 2 sprays by Each Nostril route 4 times daily 0 Active ipratropium brom alex (ATROVENT) 42 mcg (0.06 %) nasal spray Use 2 Sprays in the nose once daily. 0 Active Comment on above: Use 2 Sprays in the nose once daily. Lactobacillus acidophilus (14 sources) Lactobacillus acidophilus (PROBIOTIC ORAL) Take by mouth. Active levothyroxine sodium 0.05 mg oral tablet (20 sources) l-Thyroxine Start: 2 End: 5 take 1 tablet by mouth once daily in the morning levothyroxine (SYNTHROID, LEVOTHROID) 50 MCG tablet Indications: Postprocedural hypothyroidism , Postoperative hypothyroidism TAKE 1 TABLET BY MOUTH EVERY DAY IN THE MORNING ON EMPTY STOMACH FOR 90 DAYS 90 tablet 3 06/28/2024 Active take 1 tablet by corby th [...] ON AN EMPTY STOMACH 90 tablet 3 06/11/2024 Active take 1 tablet by corby th every twenty-four hours Liothyronine Sodium 5 MCG 1 tablet on an empty stomach Orally Once a day Active meloxicam 15 mg oral tablet (12 sources) Nonsteroidal Anti-inflammatory Drug Start: 12-30-2023 take 1 tablet by mouth once daily Meloxicam 15 mg tablet Active 0 .ROUTE .COMPLEX December 30, 2023 9:42am TAKE 1 TABLET BY MOUTH EVERY DAY Start: 07-24-2023 End: 12-30-2023 take 1 tablet by mouth once daily Meloxicam 15 mg tablet Discontinued 15 MG PO Daily July 24, 2023 12:00am December 30, 2023 9:42am Meloxicam 15 MG TAKE 1 TABLET BY MOUTH EVERY DAY FOR 30 DAYS for 30 Active ondansetron 4 mg disintegrating oral tablet (2 sources) Serotonin-3 Receptor Antagonist Start: 12-02-2023 take 1 tablet by mouth every eight hours as needed for nausea ondansetron ODT (ZOFRAN ODT) 4 mg disintegrating tablet Dissolve 1 tablet (4 mg total) on tongue every 8 (eight) hours as needed for nausea for up to 10 doses. 10 tablet 12/02/2023 Active ondansetron (ZOFRAN-ODT) disintegrating tablet 4 mg (1 source) Start: 04-14-2022 ondansetron (ZOFRAN-ODT) disintegrating tablet 4 mg polyethylene glycol [id number] mg powder for oral solution (1 source) Osmotic Laxative Start: 04-14-2022 polyethylene glycol (GLYCOLAX) packet 17 g saccharomyces boulardii 250 mg oral capsule (5 sources) take 1 capsule by mouth in the morning saccharomyces boulardii (Florastor) 250 MG capsule Take 250 mg by mouth in the morning and 250 mg before bedtime. Active sennosides, assisted 8.6 mg oral tablet (1 source) Start: 04-14-2022 senna (SENOKOT) tablet 8.6 mg spironolactone 25 mg oral tablet (20 sources) Aldosterone Antagonist Start: 11-17-2019 Spironolactone 25 mg tablet Active 25 MG PO September 16, 2023 11:00pm [facility] tablet Orally; Note: Source Status: Taking; Provider: Alissa Hoffman ( ) Comment on above: Take 25 mg by mouth once daily. terbinafine (7 sources) Allylamine Antifungal Terbinafine Active Completed/Discontinued Medications [...] take 2 tablets by mouth twice daily calcium-carbonate -vitamin D3 500 mg(1,250mg) -200 unit per tablet Take 2 tablets by mouth twice daily. 0 Active Comment on above: Take 2 tablets by mo ut twice daily. donepezil hydrochloride 10 mg oral [...] iopamidol (ISOVUE-370) 76 % injection 130 mL metoprolol tartrate 25 mg oral tablet (20 sources) beta-Adrenergic Yuki Start: 09-17-2023 End: 02-24-2024 take 1 tablet by mouth twice daily at mealtime Metoprolol Tartrate 25 mg tablet Discontinued 25 MG PO Twice daily September 16, 2023 11:00pm February 24, 2024 9:44am [facility] tablet with food Orally Twice a [...] morning and 25 mg before bedtime. Active Comment on above: Take 12.5 mg by mout h twice daily. OTC PRODUCT (2 sources) OTC PRODUCT Kenz [...] chloride 9 mg/ml injection (4 sources) Start: sodium chloride flush 0.9 % injection 5-40 mL Start: 04-14-2022 End: 04-15-2022 0.9 % sodium chloride infusi on Tylenol Extra Strength 500 MG (15 sources) take 1 tablet by corby th every [...] above: 10mg alternating wit h 15mg nightly 100 ml zoledronic acid 0.05 mg/ml injection (1 source) Bisphosphonate Start: 11-26-2024 End: 11-26-2024 5 mg, intravenous, at 400 mL/hr, Administer over 15 Minutes, Once, On Fri11/26/24 at 1500, For 1 dose, Run in a line infusing NS or D5W only. Flush with NS before and after each dose. Start: 11-26-2024 End: 11-26-2024 5 mg, intravenous, at 400 mL /hr, Administer over 15 Minutes, Once, On Fri11/26/24 at 1500, For 1 dose, Run in a line infusing NS or D5W only. Flush with NS before and after each dose. Problems Active Problems Problem Classification Problem Date Documented Da te Episodic/Chronic Abdominal pain (2 sources) Generalized abdominal pain; 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: [Generalized abdominal pain] Onset: 5 Episodic Administrative/social admission (2 sources) Patient encounter status; 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: [Other specified counseling] 09-21-2023 Episodic Comment on above: Discussed DNR v. DNR CC A - Pt and both agreed to DNR CCA - forms signed, original given to pt. call if further questions. Anxiety disorders (9 sources) Generalized anxiety disorder; 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: [Generalized anxiety disorder] Onset: 5 10-09-2023 Chronic Cardiac dysrhythmias (20 sources) Atrial fibrillation; 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: [Unspecified atrial fibrillation] Onset: 9 11-18-2019 Chronic Chronic obstructive pulmonary disease and bronchiectasis (2 sources) Obstruction of lower respiratory tract; 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: [Chronic obstructive pulmonary disease, unspecified] 11-08-2024 Chronic Coagulation and hemorrhagic disorders (14 sources) Thrombocytopenic disorder; 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: [Thrombocytopenia, unspecified] Onset: 9 11-01-2018 Chronic Coagulation and hemorrhagic disorders (1 source) Spontaneous ecchymosis; 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: [Spontaneous ecchymoses] Episodic Complications of surgical procedures or medical care (6 sources) Postoperative hypothyroidism; 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: [Postprocedural hypothyroidism] Onset: 5 06-25-2024 Chronic Conduction disorders (16 sources) Cardiac pacemaker in situ; 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: [Presence [...] (primary) hypertension] Onset: 4 Chronic Fracture of lower limb (1 source) Closed fracture of ankle; 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: [Other fracture of left lower leg, initial encounter for closed fracture] 03-04-2024 Episodic Heart valve disorders (20 sources) Nonrheumatic mitral (valve) insufficiency; 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: [Rheumatic disease of mitral valve] Onset: 9 08-28-2018 Chronic Hemorrhoids (1 source) Thrombosed hemorrhoids; 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: [Perianal venous thrombosis] Episodic Malaise and fatigue (20 sources) Fatigue; 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: [Chronic fatigue, unspecified] Chronic Mycoses (3 sources) Onychomycosis due to dermatophyte ; 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: [Tinea unguium] 07-10-2023 Episodic Nonspecific chest pain (2 sources) Chest pain; 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: [Chest pain, unspecified] Onset: 8 Episodic Nutritional deficiencies (20 sources) Vitamin D deficiency, unspecified; 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: [Vitamin D deficiency] Onset: 2 Chronic Osteoarthritis (20 sources) Osteoarthritis of right hip joint; 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: [Unilateral primary osteoarthritis, right hip] Chronic Osteoporosis (5 sources) Primary osteoporosis; 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: [Age-related osteoporosis without current pathological fracture] Onset: 4 09-23-2024 Chronic Other and ill-defined cerebrovascular disease (14 sources) Cerebrovascular disease; 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: [Cerebrovascular disease, unspecified] [...] [Pain in unspecified toe(s)] 07-10-2023 Episodic Other connective tissue disease (2 sources) Pain in hallux; 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: [Pain in right toe(s)] 10-27-2024 Episodic Other ear and sense organ disorders (1 source) Impacted cerumen; 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: [Impacted cerumen, unspecified ear] Episodic Other endocrine disorders (15 sources) Hyperparathyroidism; 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: [Hyperparathyroidism, unspecified] Onset: 3 [...] and degenerative nervous system conditions (1 source) Essential tremor; 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: [Essential tremor] Onset: 5 Chronic Other hereditary and degenerative nervous system conditions (12 sources) Essential tremor; 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: [Essential tremor] Onset: 5 07-27-2024 Chronic Other hereditary and degenerative nervous system [...] 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: [Hepatomegaly, not elsewhere classified] Episodic Other lower respiratory disease (1 source) Shortness of breath; 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: [Shortness of breath] Onset: 5 Episodic Other non-traumatic joint disorders (6 sources) Pain in left hip; 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: [PAIN IN LEFT HIP] Onset: 3 Episodic Other non-traumatic joint disorders (1 source) Arthralgia of the lower leg; 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: [Pain in right knee] Episodic Other non-traumatic joint disorders (1 source) Pain in right hip joint; 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: [Pain in right hip] Episodic Other non-traumatic joint disorders (2 sources) Acute ankle pain; 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: [Pain in left ankle and joints of left foot] 02-24-2024 Episodic Other non-traumatic joint disorders (2 sources) Pain in left ankle and joints of left foot; 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: [Pain in joint, ankle and foot] 02-24-2024 Episodic Other non-traumatic joint disorders (1 source) Hip pain Onset: 5 Episodic Other nutritional; endocrine; and metabolic disorders (2 sources) Hypercalcemia; 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: [HYPERCALCEMIA] Onset: 2 Chronic Other nutritional; endocrine; and metabolic disorders (11 sources) Hypercalcemia; 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: [Hypercalcemia] Onset: 7 Chronic Other screening for suspected conditions (not mental disorders or infectious disease) (1 source) Encounter for screening mammogram for malignant neoplasm of breast Episodic Other skin disorders (3 sources) Dystrophia unguium; 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: [Nail dystrophy] 07-10-2023 Episodic Other upper respiratory disease (1 source) Other specified disorders of nose and nasal sinuses; 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: [Other specified disorders of nose and nasal sinuses] Episodic Other upper respiratory infections (5 sources) Acute upper respiratory infection; 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: [Acute upper respiratory infections of unspecified site] Onset: 4 04-26-2024 Episodic Rosamaria-; endo-; and myocarditis; cardiomyopathy (except that caused by tuberculosis or sexually transmitted disease) (1 source) Endocarditis, valve unspecified; 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: [Endocarditis, valve unspecified] Onset: 4 Chronic Pulmonary heart disease (13 sources) Pulmonary hypertension; 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: [Pulmonary hypertension, unspecified] Onset: 5 07-28-2024 Chronic Residual codes; unclassified (1 source) Family history of malignant neoplasm of gastrointestinal tract; 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: [Family history of malignant neoplasm of digestive organs] Episodic Residual codes; unclassified (2 sources) Other amnesia; 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: [Other amnesia] Onset: 5 Episodic Screening and history of mental health [...] tendon of left hip, subsequent encounter Episodic Thyroid disorders (20 sources) Hypothyroidism, unspecified; 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: [Hypothyroidism] Onset: 2 Chronic Transient cerebral ischemia (15 sources) Transient cerebral ischemia; 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: [Unspecified transient [...] EXPOS COVID-19] Onset: 2 Unclassified (1 source) Establish Care Onset: 5 Unclassified (1 source) Outpatient Infusion Onset: 5 Unclassified (1 source) Device Check Onset: 4 Unclassified (1 source) EMS Onset: 4 Viral infection (1 source) Disease caused by 2019-nCoV; 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: [COVID-19] Past or Other Problems Problem Classification Problem Date Documented Da te Episodic/Chronic Acute cerebrovascular disease (15 sources) Hematoma of subdural space of neuraxis; 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: [Subdural hematoma] Onset: 2 Resolved: 5 Chronic Allergic reactions (1 source) Allergic contact dermatitis; 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: [Allergic contact dermatitis, unspecified cause] Onset: 7 Episodic Cardiac dysrhythmias (14 sources) Bradycardia; 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: [Bradycardia, unspecified] Onset: 9 11-04-2018 Episodic Deficiency and other anemia (12 sources) Bone marrow disorder; 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] Onset: 5 Resolved: 5 07-28-2024 Chronic Diabetes mellitus without complication (1 source) Hyperglycemia; 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: [Hyperglycemia, unspecified] Onset: 9 Episodic E Codes: Fall (2 sources) Fall on same level from slipping, tripping and stumbling with subsequent striking against other object, initial encounter; 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: [Unspecified fall, initial encounter] Onset: 2 Episodic Fracture of upper limb (3 sources) 3-part fracture of surgical neck of right humerus, initial encounter for closed fracture; 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: [Fracture of right shoulder girdle, part unspecified, initial encounter for closed fracture] Onset: 4 Episodic Headache; including migraine (15 sources) Headache; 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: [Headache, unspecified] Onset: 5 [...] INIT] Onset: 2 Episodic Malaise and fatigue (19 sources) Other fatigue; 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: [Fatigue] Onset: 0 Episodic Mood disorders (14 sources) Mood disorders Onset: 2 10-18-2021 Open wounds of head; neck; and trunk (1 source) Laceration without foreign body of oral cavity, initial encounter; 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: [LACERATION W/O FB ORAL CAV INIT ENC] Onset: 2 Episodic Other aftercare (15 sources) Anticoagulant effect; 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: [experimental mechanic spacecraft (current) use of anticoagulants] Onset: 0 Resolved: 2 11-18-2019 Episodic Other aftercare (1 source) experimental mechanic spacecraft (current) use of antithrombotics/antipl atelets; 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: [SENIOR OFFICE ASSISTANT ANTITHROMBOT/ANTIPLATL ETS] Onset: 2 Episodic Other aftercare (1 source) Other detention (current) drug therapy; 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: [OTH RETIREMENT CURRENT DRUG THERAPY] Onset: 2 Episodic Other aftercare (14 sources) Long-term current use of anticoagulant; 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: [snf (current) use of anticoagulants] Onset: 9 11-06-2018 Episodic Other aftercare (14 sources) Wound ; 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: [Encounter for other specified surgical aftercare] Onset: 9 11-16-2018 Episodic Other bone disease and musculoskeletal deformities (16 sources) Osteopenia; Translations: [Other specified disorders of bone density and structure, unspecified site] Onset: 3 09-16-2022 Episodic Other bone disease and musculoskeletal deformities (1 source) Segmental and somatic dysfunction of upper extremity; Translations: [Segmental and somatic dysfunction of upper extremity] Onset: 4 Episodic Other bone disease and musculoskeletal deformities (1 source) Other specified disorders of bone density and structure, unspecified site; Translations: [Other specified disorders of bone density and structure, unspecified site] Onset: 3 Episodic Other circulatory disease (15 sources) History of transient ischemic attack; Translations: [Personal history of transient ischemic attack (TIA), and cerebral infarction without residual deficits] Onset: 0 Resolved: 2 11-18-2019 Episodic Other connective tissue disease (1 source) Pain in left lower leg; Translations: [PAIN IN LEFT LOWER LEG] Onset: 2 Episodic Other connective tissue disease (1 source) Impingement syndrome of right shoulder; Translations: [Impingement syndrome of right shoulder] Onset: 4 Episodic Other female genital disorders (1 source) Dyspareunia; Translations: [Unspecified dyspareunia] Resolved: 9 Chronic Other gastrointestinal disorders (1 source) Flatulence, eructation and gas pain; Translations: [Abdominal distension (gaseous)] Onset: 6 Episodic Other gastrointestinal disorders (14 sources) Altered bowel function; Translations: [Change in bowel habit] Onset: 8 04-27-2018 Episodic Other gastrointestinal disorders (14 sources) Diarrhea; Translations: [Diarrhea, unspecified] Onset: 8 04-27-2018 Episodic Other hereditary and degenerative nervous system conditions (14 sources) Tardive dyskinesia; Translations: [Drug induced subacute [...] Onset: 4 Episodic Other nervous system disorders (14 sources) Involuntary movement; Translations: [Unspecified abnormal involuntary movements] Onset: 0 01-05-2020 Episodic Other non-traumatic joint disorders (1 source) Pain in wrist; Translations: [Pain in unspecified wrist] Onset: 5 Episodic Other non-traumatic joint disorders (1 source) Pain in right shoulder; Translations: [Pain in right shoulder] Onset: 4 Episodic Other non-traumatic joint disorders (1 source) Shoulder pain Onset: 4 Episodic Other skin disorders (1 source) Disorder of skin and/or subcutaneous tissue; Translations: [Disorder of the skin and subcutaneous tissue, unspecified] Onset: 9 Episodic Phlebitis; thrombophlebitis and thromboembolism (2 sources) [...] Onset: 0 11-18-2019 Episodic Residual codes; unclassified (14 sources) Pain; Translations: [Pain, unspecified] Onset: 9 11-01-2018 Episodic Residual codes; unclassified (20 sources) Memory impairment; Translations: [Other amnesia] Onset: 0 Resolved: 5 04-18-2020 Episodic Respiratory failure; insufficiency; arrest (adult) (12 sources) 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; 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 [ventilator] status] Onset: 5 Resolved: 5 07-28-2024 Chronic Superficial injury; contusion (3 sources) Contusion of other part of head, initial encounter; Translations: [Contusion of hand] Onset: 2 Episodic Results Test Name Value Interpretation Reference Range Facility CALCIUMon 11-25-2024 Calcium [Mass/Vol] 10.4 mg/dL Normal 8.5-10.5 [facility] Comment on above: Performed By: #### [place], [address]-7, PINR, CBCA #### [facility] ([id number]) [address] [place] [address] 71295 CREATININE, SERUMon 11-26-19 25 Creatinine [Mass/Vol] 0.81 mg/dL Normal 0.40-1.00 [facility] Comment on above: Result Comment: METH OD TRACEABLE TO IDMS STANDARD Performed By: #### B JACKLYN, 73667-4, WENDY QUINONES #### [facility] ([id number]) [address] [place] [address] 25866 GFR/1.73 sq M.predicted among non-blacks MDRD (S/P/Bld) [Vol rate/Area] 72 mL/min/{1.73_m2} Normal >=60 [facility] Comment on above: Result Comment: Repo rted eGFR is based on the CKD-EPI 2020 equation that does not use a race coefficient. Performed By: #### B JACKLYN, 69166-7, WENDY QUINONES #### [facility] ([id number]) [address] [place] [address] 86903 VITAMIN D 25 HYDROXYon 11-25 VITAMIN D 25 HYD TOT 71.2 ng/mL Normal 30.0-100.0 [facility] Comment on above: Order Comment: Vitam in D status 25 [place] Vitamin D Deficiency <20 ng/mLInsufficiency 20-29 ng/mLSufficiency 30-100 ng/mLToxicity >100 ng/mLNOTE: A pediatric reference range has not been established by the dining server of this kit. The [place] [employer] recommends a Vitamin D level of = or >20ng/mL in infants and children. Performed By: #### B JACKLYN, 27359-1, PINSherry, STEVEA #### [facility] ([id number]) [address] [place] [address] 41099 XR CHEST 2 VWSon 10-07-2024 XR CHEST 2 VWS XR CHEST 2 VWS Chest 2 views History: Shortness of breath Comparison: 12/01/2023 Findings: Chest 2 views. Stable cardiomediastinal silhouette. There is no focal opacity, effusion or pneumothorax. Impression: No evident acute cardiopulmonary process. Finalized by Edin Bedolla MD on 10/07/2024 12:57 PM Normal [facility] CBC AND AUTO DIFFon 09-24-19 ABSOLUTE BASOPHIL 0.0 X10E9/L Normal 0.0-0.2 [facility] Comment on above: Performed By: #### C PETE, 67547-1, 9, 3051-0, THYR #### [facility] ([id number]) [address], [address] [place] [address] ABSOLUTE NEUTROPHIL 2.8 X10E9/L Normal 1.5-6.6 [facility] Comment on above: Performed By: #### Aubrey FREEMAN, 57294-0, 9, 305-0, THYR #### [facility] ([id number]) [address], [address] [place] [address] Basophils/100 WBC (Bld) 0.7 % Normal [facility] Comment on above: Performed By: #### Aubrey FREEMAN, 57558-9, 9, 305-0, THYR #### [facility] ([id number]) [address], [address] [place] [address] Eosinophils (Bld) [#/Vol] 0.1 10*3/uL Normal 0.0-0.4 [facility] Comment on above: Performed By: #### Aubrey FREEMAN, 65616-6, 9, 3051-0, THYR #### [facility] ([id number]) [address], [address] [place] [address] Eosinophils/100 WBC (Bld) 3.4 % Normal [facility] Comment on above: Performed By: #### Aubrey FREEMAN, 99605-3, 2132-02, 0, THYR #### [facility] ([id number]) [address] [address] [place] [address] Erythrocyte distribution width (RBC) [Ratio] 13.2 % Normal 11.5-15.0 [facility] Comment on above: Performed By: #### C BCA, 35216-4, 2132-02, 0, THYR #### [facility] ([id number]) [address] [address] Hematocrit (Bld) [Volume fraction] 39.1 % Normal 35-47 [facility] Comment on above: Performed By: #### C PETE, 33212-0, 2132-02, 0, THYR #### [facility] ([id number]) [address] [address] Hemoglobin (Bld) [Mass/Vol] 13.2 g/dL Normal 11.7-15.5 [facility] Comment on above: Performed By: #### C PETE, 57592-9, 2132-02, 0, THYR #### [facility] ([id number]) [address] [address] Lymphocytes (Bld) [#/Vol] 0.6 10*3/uL Low 1.0-3.5 [facility] Comment on above: Performed By: #### C BCA, 61023-8, 2132-02, 0, THYR #### [facility] ([id number]) [address] [address] Lymphocytes/100 WBC (Bld) 15.8 % Normal [facility] Comment on above: Performed By: #### C BCA, 70757-2, 2132-02, 3050-0, THYR #### [facility] ([id number]) [address], [address] [place] [address] MCH (RBC) [Entitic mass] 29.2 pg Normal 27-34 [facility] Comment on above: Performed By: #### Aubrey FREEMAN, 62803-8, 2132-02, 3050-0, THYR #### [facility] ([id number]) [address], [address] [place] [address] MCHC (RBC) [Mass/Vol] 33.7 g/dL Normal 32-36 [facility] Comment on above: Performed By: #### Aubrey FREEMAN, 02237-9, 2132-02, 3050-0, THYR #### [facility] ([id number]) [address], [address] [place] [address] MCV (RBC) [Entitic vol] 87 fL Normal 80-100 [facility] Comment on above: Performed By: #### Aubrey FREEMAN, 18215-1, 2132-02, 0, THYR #### [facility] ([id number]) [address], [address] [place] [address] Monocytes (Bld) [#/Vol] 0.4 10*3/uL Normal 0-0.9 [facility] Comment on above: Performed By: #### Aubrey FREEMAN, 60786-3, 2132-02, 3050-0, THYR #### [facility] ([id number]) [address], [address] [place] [address] Monocytes/100 WBC (Bld) 9.8 % Normal [facility] Comment on above: Performed By: #### Aubrey FREEMAN, 36103-5, 2132-02, 3050-0, THYR #### [facility] ([id number]) [address], [address] [place] [address] Neutrophils/100 WBC (Bld) 70.3 % Normal [facility] Comment on above: Performed By: #### Aubrey FREEMAN, 69813-7, 2132-02, 0, THYR #### [facility] ([id number]) [address], [address] [place] [address] Platelet mean volume (Bld) [Entitic vol] 8.4 fL Normal 7-12 [facility] Comment on above: Performed By: #### C PETE, 90463-8, 2132-02, 0, THYR #### [facility] ([id number]) [address], [address] [place] [address] Platelets (Bld) [#/Vol] 182 10*3/uL Normal 150-450 [facility] Comment on above: Performed By: #### Aubrey FREEMAN, 74095-3, 2132-02, , THYR #### [facility] ([id number]) [address], [address] [place] [address] RBC COUNT 4.51 X10E12/L Normal 3.80-5.20 [facility] Comment on above: Performed By: #### C PETE, 11750-9, 2132-02, 0, THYR #### [facility] ([id number]) [address], [address] [address] WBC (Bld) [#/Vol] 4.0 10*3/uL Normal 4.0-11.0 [facility] Comment on above: Performed By: #### Aubrey FREEMAN, 10086-8, 2132-02, 0, THYR #### [facility] ([id number]) [address], [address] [place] [address] FREE T3on 09-23-2024 Free T3 [Mass/Vol] 2.82 pg/mL Normal 2.50-3.90 [facility] Comment on above: Performed By: #### Aubrey FREEMAN, 78004-4, 2132-02, 0, THYR #### [facility] ([id number]) [address] [address] Methylmalonate [Moles/Vol]on 09-23-2024 Methylmalonic Acid, QN, P 0.20 nmol/mL Normal <=0.40 [facility] Comment on above: Result Comment: NOTE ADDITIONAL INFORMATION This test was developed and its performance characteristics determined by [facility] in a manner consistent with CLIA requirements. This test has not been cleared or approved by the U.S. Food and Drug Administration. Test Performed by: [place] [address] [employer] Feather Machine Operator: Ferny Puckett Ph.D.; CLIA# [id number] Performed By: #### C PETE, 46441-2, 2132-02, 0, THYR #### [facility] ([id number]) [address] [address] THYROID PROFILEon 09-23-2024 Free T4 [Mass/Vol] 0.95 ng/dL Normal 0.61-1.60 [facility] Comment on above: Performed By: #### C BCA, 79375-6, 2132-02, 0, THYR #### [facility] ([id number]) [address] [place] [address] TSH 3.30 uIU/mL Normal 0.49-4.67 [facility] Comment on above: Performed By: #### C BCA, 51467-0, 2132-02, 305-0, THYR #### [facility] ([id number]) [address] [place] [address] VITAMIN B12on 09-23-2024 Cobalamin (Vitamin B12) [Mass/Vol] 260 pg/mL Normal 180-914 [facility] Comment on above: Performed By: #### C BCA, 68615-7, 2132-02, 3051-0, THYR #### [facility] ([id number]) [address] [facility], [address] [place] [address] Vitamin D+Metabolites [Mass/ Vol]on 09-23-2024 VITAMIN D 25 HYD TOT 65.6 ng/mL Normal 30-100 [facility] Comment on above: Result Comment: Vitamin D status 25 [place] Vitamin D Deficiency <20 ng/mL Insufficiency 20-29 ng/mL Sufficiency 30-100 ng/mL Toxicity >100 ng/mL NOTE: A pediatric reference range has not been established by the dining server of this kit. The [place] [employer] recommends a Vitamin D level of = or >20ng/mL in infants and children. Performed By: #### C PETE, 95895-6, 2132-02, 0, THYR #### [facility] ([id number]) [address], [address] [place] [address] MR SHOULDER RT WO CONTon MR SHOULDER RT WO CONT MR SHOULDER RT WO CONT History: Impingement syndrome of right shoulder; Somatic dysfunction of upper extremities; 3-part fracture of surgical neck of right humerus, initial encounter for closed fracture Comparison right shoulder x-ray February 17 Procedure Multiplanar, multisequence images performed through the right shoulder without complications. Findings: Transverse fracture through the humeral neck which is not healed at this time Moderate tendinopathy at the footplate at the insertion of the supraspinatus tendon without a convincing tear. Minimal subdeltoid fluid Moderate AC joint arthritis but no narrowing of the coracoacromial arch and no impingement Severe supraspinatus tendon atrophy Biceps tendon and glenoid labrum grossly unremarkable Subscapularis appropriate IMPRESSION: Supraspinatus tendinopathy and atrophy without rotator cuff tear or impingement Moderate AC joint arthritis Finalized by Blake Sher MD on 04/29/2024 4:38 PM Normal [facility] No Panel Informationon 04-08 25-Hydroxy Vitamin D Total 43.9 ng/mL [facility] Comment on above: <20 ng/mL Vit D defi cient20-<30 ng/mL Vit D ysowwmbpnqll63-566 ng/mL Vit D sufficient>100 ng/mL Potential Toxicity BASIC METABOLIC PANLon 11-30 Anion gap [Moles/Vol] 7 mmol/L Normal 5-15 [facility] Comment on above: Performed By: #### B JACKLYN, 75261-7, PINR, CBCA #### [facility] ([id number]) [address] [place] [address] Calcium [Mass/Vol] 9.9 mg/dL Normal 8.5-10.5 [facility] Comment on above: Performed By: #### B JACKLYN, 93788-4, PINR, CBCA #### [facility] ([id number]) [address] [place] [address]96[address] Chloride [Moles/Vol] 109 mmol/L Normal 98-109 [facility] Comment on above: Performed By: #### B JACKLYN, 39306-1, PINR, CBCA #### [facility] ([id number]) [address] [place] [address] 06498 CO2 [Moles/Vol] 20 mmol/L Low 22-32 [facility] Comment on above: Performed By: #### B JACKLYN, 90178-6, PINR, CBCA #### [facility] ([id number]) [address] [place] [address] Creatinine [Mass/Vol] 0.82 mg/dL Normal 0.40-1.00 [facility] Comment on above: Result Comment: METH OD TRACEABLE TO IDMS STANDARD Performed By: #### B JACKLYN, 94124-6, PINR, CBCA #### [facility] ([id number]) [address] [place] [address]27[address] GFR/1.73 sq M.predicted among non-blacks MDRD (S/P/Bld) [Vol rate/Area] 71 mL/min/{1.73_m2} Normal >59 [facility] Comment on above: Result Comment: Reported eGFR is based on the CKD-EPI 2020 equation that does not use a race coefficient. Performed By: #### B JACKLYN, 49739-5, PINR, CBCA #### [facility] ([id number]) [address] [place] [address] Glucose [Mass/Vol] 118 mg/dL High 65-99 [facility] Comment on above: Performed By: #### B JACKLYN, 46744-0, PINR, CBCA #### [facility] ([id number]) [address] [place] [address]12[address] Potassium [Moles/Vol] 3.6 mmol/L Normal 3.5-5.0 [facility] Comment on above: Performed By: #### B JACKLYN, 31364-6, PINR, CBCA #### [facility] ([id number]) [address] [place] [address] Sodium [Moles/Vol] 136 mmol/L Normal 134-146 [facility] Comment on above: Performed By: #### B JACKLYN, 32825-7, PINR, CBCA #### [facility] ([id number]) [address] [place] [address]3842 Urea nitrogen [Mass/Vol] 24 mg/dL Normal 5-27 [facility] Comment on above: Performed By: #### B JACKLYN, 68006-6, PINR, CBCA #### [facility] ([id number]) [address] [place] [address] CBC AND AUTO DIFFon 11-30- 24 ABSOLUTE BASOPHIL 0.0 X10E9/L Normal 0.0-0.2 [facility] Comment on above: Performed By: #### B JACKLYN, 56232-9, PINR, CBCA #### [facility] ([id number]) [address] [place] [address] ABSOLUTE NEUTROPHIL 2.6 X10E9/L Normal 1.5-6.6 [facility] Comment on above: Performed By: #### B MP, 28477-7, PINR, CBCA #### [facility] ([id number]) [address] [place] [address] Basophils/100 WBC (Bld) 0.5 % Normal [facility] Comment on above: Performed By: #### B MP, 13561-8, PINR, CBCA #### [facility] ([id number]) [address] [place] [address] 02575 Eosinophils (Bld) [#/Vol] 0.2 10*3/uL Normal 0.0-0.4 [facility] Comment on above: Performed By: #### B MP, 67429-2, PINR, CBCA #### [facility] ([id number]) [address] [place] [address] Eosinophils/100 WBC (Bld) 3.5 % Normal [facility] Comment on above: Performed By: #### B MP, 88689-1, PINR, CBCA #### [facility] ([id number]) [address] [place] [address]65 Erythrocyte distribution width (RBC) [Ratio] 13.3 % Normal 11.5-15.0 [facility] Comment on above: Performed By: #### B MP, 51429-6, PINR, CBCA #### [facility] ([id number]) [address] [place] [address] Hematocrit (Bld) [Volume fraction] 36.5 % Normal 35-47 [facility] Comment on above: Performed By: #### B MP, 33396-3, PINR, CBCA #### [facility] ([id number]) [address] [place] [address]56[address] Hemoglobin (Bld) [Mass/Vol] 12.6 g/dL Normal 11.7-15.5 [facility] Comment on above: Performed By: #### B JACKLYN, 81379-2, PINR, CBCA #### [facility] ([id number]) [address] [place] [address] Lymphocytes (Bld) [#/Vol] 1.8 10*3/uL Normal 1.0-3.5 [facility] Comment on above: Performed By: #### B JACKLYN, 73458-9, PINR, CBCA #### [facility] ([id number]) [address] [place] [address] Lymphocytes/100 WBC (Bld) 35.7 % Normal [facility] Comment on above: Performed By: #### Katt VILLASENOR, 83295-8, PINR, CBCA #### [facility] ([id number]) [address] [place] [address] MCH (RBC) [Entitic mass] 29.7 pg Normal 27-34 [facility] Comment on above: Performed By: #### Katt VILLASENOR, 93576-2, PINR, CBCA #### [facility] ([id number]) [address] [place] [address] MCHC (RBC) [Mass/Vol] 34.5 g/dL Normal 32-36 [facility] Comment on above: Performed By: #### B JACKLYN, 23165-8, PINR, CBCA #### [facility] ([id number]) [address] [place] [address]38[address] MCV (RBC) [Entitic vol] 86 fL Normal 80-100 [facility] Comment on above: Performed By: #### B JACKLYN, 02592-3, PINR, CBCA #### [facility] ([id number]) [address] [place] [address] 14699 Monocytes (Bld) [#/Vol] 0.4 10*3/uL Normal 0-0.9 [facility] Comment on above: Performed By: #### B MP, 53956-4, PINR, CBCA #### [facility] ([id number]) [address] [place] [address] 46869 Monocytes/100 WBC (Bld) 7.7 % Normal [facility] Comment on above: Performed By: #### B MP, 18503-2, PINR, CBCA #### [facility] ([id number]) [address] [place] [address] 08118 Neutrophils/100 WBC (Bld) 52.6 % Normal [facility] Comment on above: Performed By: #### B MP, 36368-6, PINR, CBCA #### [facility] ([id number]) [address] [place] [address] 49634 Platelet mean volume (Bld) [Entitic vol] 7.9 fL Normal 7-12 [facility] Comment on above: Performed By: #### B MP, 46458-5, PINR, CBCA #### [facility] ([id number]) [address] [place] [address] Platelets (Bld) [#/Vol] 171 10*3/uL Normal 150-450 [facility] Comment on above: Performed By: #### B MP, 48254-3, PINR, CBCA #### [facility] ([id number]) [address] [place] [address] 04946 RBC COUNT 4.24 X10E12/L Normal 3.80-5.20 [facility] Comment on above: Performed By: #### B MP, 16462-9, PINR, CBCA #### [facility] ([id number]) [address] [place] [address] 05748 WBC (Bld) [#/Vol] 4.9 10*3/uL Normal 4.0-11.0 [facility] Comment on above: Performed By: #### B MP, 78050-0, PINR, CBCA #### [facility] ([id number]) [address] [place] [address]192 PROTIME AND INRon 12-01-2023 INR Coag (PPP) [Relative time] 1.0 {INR} Normal 0.8-1.1 [facility] Comment on above: Performed By: #### B MP, 55230-9, PINR, CBCA #### [facility] ([id number]) [address] [place] [address] 23262 PT Coag (PPP) [Time] 11.5 s Normal 9.8-13.2 [facility] Comment on above: Result Comment: NEW REFERENCE RANGE Performed By: #### B MP, 79799-2, PINR, CBCA #### [facility] ([id number]) [address] [place] [address] 57527 XR CHEST 1 VWon 12-01-2023 XR CHEST 1 VW XR CHEST 1 VW Single view chest History: Difficulty breathing, shortness of breath Comparison: 11/14/2022 Impression: 1. No acute pulmonary process. No pneumothorax or pleural effusion. 2. Nonenlarged heart. Cardiac valve prostheses. Left chest wall cardiac electronic device. 3. Comminuted right proximal humeral fracture. Finalized by Keshawn Brock MD on 12/01/2023 11:27 PM Normal [facility] XR ELBOW RT MIN 3 VWSon 11-08 XR ELBOW RT MIN 3 VWS XR ELBOW RT MIN 3 VWS XR ELBOW RT MIN 3 VWS HISTORY: Trauma. Elbow pain COMPARISON: none IMPRESSION: 1. No acute fracture or dislocation. No effusion. 2. Mild degenerative changes of the elbow. Finalized by Keshawn Brock MD on 12/01/2023 11:26 PM Normal [facility] XR HAND RT MIN 3 VWSon 11-30 [...] Brock MD on 12/01/2023 11:28 PM Normal [facility] XR SHOULDER RT MIN 2 VWSon 0 [...] Brock MD on 12/01/2023 11:27 PM Normal [facility] aPTT Coag (PPP) [Time]on aPTT Coag (Bld) [Time] 36 s Normal 26-37 Pr [facility] Comment on above: Result Comment: NEW REFERENCE RANGE Performed By: #### B MP, 72863-2, PINR, CBCA #### [facility] ([id number]) [address] [place] [address], [place] [address] Basophils Auto (Bld) [#/Vol] on 11-26-2023 Basophils (Bld) [#/Vol] 0.0 10 3/uL 0.0-0.1 [facility] Basophils/100 WBC Auto (Bld) on 11-26-2023 Basophils/100 WBC (Bld) 0.4 % 0.2-2.0 [facility] Eosinophils/100 WBC Auto (Bl d)on 11-26-2023 Eosinophils/100 WBC (Bld) 4.0 % 0.9-7.0 [facility] Erythrocyte distribution wid th Auto (RBC) [Ratio]on 11-26-2023 Erythrocyte distribution width (RBC) [Ratio] 12.0 % 11.0-15.0 [facility] Hematocrit Auto (Bld) [Volum e fraction]on 11-26-2023 Hematocrit (Bld) [Volume fraction] 36.2 % 36.0-48.0 [facility] Hemoglobin [Mass/volume] in Bloodon 11-26-2023 Hemoglobin (Bld) [Mass/Vol] 12.0 g/dL 12.0-16.0 [facility] Iron binding capacity [Mass/ volume] in Serum or Plasmaon 11-26-2023 Iron binding capacity [Mass/Vol] 368.0 ug/dL 250.0-450.0 [facility] Iron saturation [Mass Fracti on] in Serum or Plasmaon 11-26-2023 Iron saturation [Mass fraction] 24.5 % [facility] Laboratory - Chemistry and C hemistry - challengeon 11-26-2023 Iron [Mass/Vol] 90.0 ug/dL 50.0-170.0 [facility] Laboratory - Hematology and Cell countson 11-26-2023 Immature granulocytes/100 WBC (Bld) 0.0 % 0.0-0.5 [facility] Leukocytes [#/volume] correc amelia for nucleated erythrocytes in Blood by Automated counon 11-26-2023 WBC corrected for nucl RBC Auto (Bld) [#/Vol] 5.0 10 3/uL 4.0-11.0 [facility] Lymphocytes Auto (Bld) [#/Vo l]on 11-26-2023 Lymphocytes (Bld) [#/Vol] 1.0 10 3/uL Low 1.2-3.8 [facility] Lymphocytes/100 WBC Auto (Bl d)on 11-26-2023 Lymphocytes/100 WBC (Bld) 20.5 % 20.5-60.0 [facility] MCH Auto (RBC) [Entitic mass ]on 11-26-2023 MCH (RBC) [Entitic mass] 29.8 pg 26.7-34.0 [facility] MCHC Auto (RBC) [Mass/Vol]on 11-26-2023 MCHC (RBC) [Mass/Vol] 33.1 g/dL 29.9-35.2 [facility] MCV Auto (RBC) [Entitic vol] on 11-26-2023 MCV (RBC) [Entitic vol] 89.8 fL 81.0-99.0 [facility] Monocytes Auto (Bld) [#/Vol] on 11-26-2023 Monocytes (Bld) [#/Vol] 0.4 10 3/uL 0.3-0.8 [facility] Monocytes/100 WBC Auto (Bld) on 11-26-2023 Monocytes/100 WBC (Bld) 8.4 % 1.7-12.0 [facility] Neutrophils Auto (Bld) [#/Vo l]on 11-26-2023 Neutrophils (Bld) [#/Vol] 3.4 10 3/uL 1.4-6.5 [facility] Neutrophils/100 WBC Auto (Bl d)on 11-26-2023 Neutrophils/100 WBC (Bld) 66.7 % 43.0-75.0 [facility] No Panel Informationon 11-25 Eosinophils # (Auto) 0.2 10 3/uL 0.0-0.7 [facility] Immature Granulocyte # (Auto) 0.00 10 3/uL 0.00-0.03 [facility] Platelet mean volume Auto (B ld) [Entitic vol]on 11-26-2023 Platelet mean volume (Bld) [Entitic vol] 9.7 fL 9.5-13.5 [facility] Platelets Auto (Bld) [#/Vol] on 11-26-2023 Platelets (Bld) [#/Vol] 173 10 3/uL 150-450 [facility] RBC Auto (Bld) [#/Vol]on RBC (Bld) [#/Vol] 4.03 10 6/uL Low 4.20-5.40 [facility] XR femur LT 2V*on 08-21-2022 XR femur LT 2V* [address] [address] XRay Report Signed Patient: Ayana Alves MR#: [id number] : 1940 Acct:[id number] Age/Sex: 82 / F ADM Date: 08/21/22 Loc: [facility] Room: Type: [facility] Attending Dr: Jeb Salas DO Copies to: [...] Pako Sidhu M.D.08/21/2022 3:22 PM Dictation Location: [place] [address] Transcribed By: [facility] 08/21/22 1522 Dictated By: Pako Sidhu DO 08/21/22 1519 Signed By: 08/21/22 1522 Normal [facility] XR femur LT 2V* [facility] [employer] Other XR femur LT 2V* [facility] Main [facility] [employer] Other XR femur LT 2V* [address] [place] [address] [employer] Other XR femur LT 2V* [place] [id number] [facility] [employer] Other XR femur LT 2V* XRay Report [employer] Other XR femur LT 2V* Signed [employer] Other XR femur LT 2V* Patient: Ayana Alves MR#: [id number] [place] [employer] Other XR femur LT 2V* 484 [employer] Other XR femur LT 2V* : 1940 Acct:[id number] [employer] Other XR femur LT 2V* Age/Sex: 82 / F ADM Date: 08/21/22 [employer] Other XR femur LT 2V* Loc: [facility] Room: Type: [facility] [employer] Other XR femur LT 2V* Attending Dr: Jeb Salas DO [employer] Other XR femur LT 2V* Copies to: Jeb Salas DO [employer] Other XR femur LT 2V* Ordering Provider: Jeb Salas DO [employer] Other XR femur LT 2V* Date of Service: 08/21/22 [employer] Other XR femur LT 2V* XR/XR femur LT 2V*: PAIN [employer] Other XR femur LT 2V* 2 views LEFTfemur plain film [employer] Other XR femur LT 2V* COMPARISON: None Nor [employer] Other XR femur LT 2V* HISTORY: LEFT anterior mid back pain for one month [employer] Other XR femur LT 2V* ACUTE FINDINGS:None [employer] Other XR femur LT 2V* DEGENERATIVE CHANGE:Spurring of the hip joints. Adequate joint space. Spurring of the greater [employer] Other XR femur LT 2V* trochanter. Chondrocalcinosis of menisci. [employer] Other XR femur LT 2V* SOFT TISSUE FINDINGS:Unremarkabl e [employer] Other XR femur LT 2V* JOINT EFFUSION:None [employer] Other XR femur LT 2V* POSTOP CHANGES:None [employer] Other XR femur LT 2V* BONE MINERALIZATION:Adequ ate [employer] Other XR femur LT 2V* Calcified fibroid. [facility] [employer] Other XR femur LT 2V* XR/XR femur LT 2V* [employer] Other XR femur LT 2V* IMPRESSION: Mild LEFT hip degeneration. greater trochanter spurring. Chondrocalcinosis of menisci. [employer] Other XR femur LT 2V* Impression dictated by: Pako Sidhu M.D.08/21/2022 3:22 PM [employer] Other XR femur LT 2V* Dictation Location: [place] [address] [employer] Other XR femur LT 2V* Transcribed By: PWS 08/21/22 [facility] [employer] Other XR femur LT 2V* Dictated By: Pako Sidhu DO 08/21/22 [facility] [employer] Other XR femur LT 2V* Signed By: [employer] [facility] [employer] Other XR femur LT 2V* 08/21/22 [facility] [employer] Other XR hip LT min 2V(w/wo pelvis )*on 08-21-2022 XR hip LT min 2V(w/wo pelvis)* [facility] Main [place] [address] [place] [address] XRay Report Signed Patient: Ayana Alves MR#: [id number] : 1940 Acct:[id number] Age/Sex: 82 / F ADM Date: 08/21/22 Loc: [facility] Room: Type: [facility] Attending Dr: Jeb Salas DO Copies to: [...] Pako Sidhu M.D.08/21/2022 3:24 PM Dictation Location: [place] [address] Transcribed By: [facility] 08/21/22 1524 Dictated By: Pako Sidhu DO 08/21/22 1522 Signed By: 08/21/22 1524 [facility] XR hip LT min 2V(w/wo pelvis)* XR/XR hip LT min 2V(w/wo pelvis)*: Acute pain of left hip [employer] Other XR hip LT min 2V(w/wo pelvis)* 2 views LEFT hip single view pelvis plain film [employer] Other XR hip LT min 2V(w/wo pelvis)* HISTORY:LEFT anterior thigh pain for months. [employer] Other XR hip LT min 2V(w/wo pelvis)* DEGENERATIVE CHANGE:Adequate hip joint space. Spurring of the greater trochanter. [employer] Other XR hip LT min 2V(w/wo pelvis)* BONY MINERALIZATION:Adequ ate [employer] Other XR hip LT min 2V(w/wo pelvis)* Degenerative calcified fibroid. Lower lumbar fixation hardware. [employer] Other XR hip LT min 2V(w/wo pelvis)* XR/XR hip LT min 2V(w/wo pelvis)* [employer] Other XR hip LT min 2V(w/wo pelvis)* IMPRESSION:Unremarka ble LEFT hip. The greater trochanter spurring. [employer] Other XR hip LT min 2V(w/wo pelvis)* Impression dictated by: Pako Sidhu M.D.08/21/2022 3:24 PM [employer] Other XR hip LT min 2V(w/wo pelvis)* Transcribed By: PWS 08/21/22 1524 [employer] Other XR hip LT min 2V(w/wo pelvis)* Dictated By: Pako Sidhu DO 08/21/22 1522 [employer] Other XR hip LT min 2V(w/wo pelvis)* 08/21/22 [facility] [employer] [address] HEAD WO CONTRASTon 2021 CT [...] symptoms: pt stated was life flighted to [facility] from [place] [facility] History: CT done at [place] FINDINGS: BRAIN/VENTRICLES: There is a small amount [...] Interpreted by: Don Rahman MD Signed by: oDn Rahman MD 04/24/22 Final result Normal [facility] Basic Metab w/rfx MGon 04-15 Anion gap [Moles/Vol] 9 mmol/L Normal 9-17 [facility] Comment on above: Performed By: #### B MPX, CDP #### [facility] [employer] [address] [place] [address] [employer] Operator: Yordan Lr MD Performed By: #### C DP, BMPX ####[facility] [address] [place] [address] [phone] Director: Yordan Lr MD Calcium [Mass/Vol] 9.6 mg/dL Normal 8.6-10.4 [facility] Comment on above: Performed By: #### B MPX, CDP #### [facility] [employer] [address] [place] [address] [employer] Operator: Yordan Lr MD Performed By: #### C DP, BMPX ####[facility] [address] [place] [address] [phone] Director: Yordan Lr MD Chloride [Moles/Vol] 107 mmol/L Normal 98-107 [facility] Comment on above: Performed By: #### B MPX, CDP #### [facility] [employer] [address] [place] [phone] [employer] Operator: Yordan Lr MD Performed By: #### C DP, BMPX ####[facility] [address] [place] [address] [phone] Director: Yordan Lr MD CO2 [Moles/Vol] 22 mmol/L Normal 20-31 [facility] Comment on above: Performed By: #### B MPX, CDP #### [facility] [address] [place] [phone] [employer] Operator: Yordan Lr MD Performed By: #### C DP, BMPX ####[facility] [address] [place] [address] Lab Director: Yordan Lr MD Creatinine [Mass/Vol] 0.74 mg/dL Normal 0.50-0.90 [facility] Comment on above: Performed By: #### B MPX, CDP #### [employer] [address] [place] [address] [employer] Operator: Yordan Lr MD Performed By: #### C DP, BMPX ####[facility] [address] [place] [address] Lab Director: Yordan Lr MD GFR/1.73 sq M.predicted among non-blacks MDRD (S/P/Bld) [Vol rate/Area] mL/min/{1.73_m2} Normal >60 [facility] Comment on above: Result Comment: Effective Mar [...] Performed By: #### B MPX, CDP #### [facility] [address] [place] [phone] [employer] Operator: Yordan Lr MD Performed By: #### C DP, BMPX ####[employer] [address] [place] [address] Lab Director: Yordan Lr MD Glucose [Mass/Vol] 89 mg/dL Normal 70-99 [facility] Comment on above: Performed By: #### B MPX, CDP #### [facility] [address] [place] [address] [employer] Operator: Yordan Lr MD Performed By: #### C DP, BMPX ####[facility] [address] [place] [address] Lab Director: Yordan Lr MD Potassium [Moles/Vol] 4.1 mmol/L Normal 3.7-5.3 [facility] Comment on above: Performed By: #### B MPX, CDP #### [facility] [address] [place] [address] [employer] Operator: Yordan Lr MD Performed By: #### C DP, BMPX ####[facility] [address] [place] [address] Lab Director: Yordan Lr MD Sodium [Moles/Vol] 138 mmol/L Normal 135-144 [facility] Comment on above: Performed By: #### B MPX, CDP #### [place] [address] [place] [address] [employer] Operator: Yordan rL MD Performed By: #### C DP, BMPX ####[facility] [address] [place] [address] Lab Director: Yordan Lr MD Urea nitrogen [Mass/Vol] 16 mg/dL Normal 8- [facility] Comment on above: Performed By: #### B MPX, CDP #### [facility] [address] [place] [address] [employer] Operator: Yordan Lr MD Performed By: #### C DP, BMPX ####[facility] [address] [place] [address] Lab Director: Yordan Lr MD Basic Metabolic Panel w/ Ref dequan to MGon 04-15-2022 Anion gap [Moles/Vol] 9 mmol/L 9 - 17 mmol/L [facility] Calcium [Mass/Vol] 9.6 mg/dL 8.6 - 10. 4 mg/dL [facility] Chloride [Moles/Vol] 107 mmol/L 98 - 10 7 mmol/L [facility] CO2 [Moles/Vol] 22 mmol/L 20 - 31 mmol/L [facility] Creatinine [Mass/Vol] 0.74 mg/dL 0.50 - 0.90 mg/dL [facility] GFR/1.73 sq M.predicted MDRD (S/P/Bld) [Vol rate/Area] - PINF [facility] Comment on above: Effective Mar 11, 2022 [...] [Mass/Vol] 89 mg/dL 70 - 99 mg/dL [facility] Potassium [Moles/Vol] 4.1 mmol/L 3.7 - 5.3 mmol/L [facility] Sodium [Moles/Vol] 138 mmol/L 135 - 144 mmol/L [facility] Urea nitrogen (BldV) [Mass/Vol] 16 mg/dL 8 - 23 mg/dL [facility] CBC with Auto Differentialon 04-15-2022 Absolute Eos # 0.14 [place] [facility] Absolute Immature Granulocyte [facility] Absolute Lymph # 1.04 Low [facility] Absolute [place] # 0.58 [facility] RS [facility] Basophils Absolute [facility] Basophils/100 WBC (Bld) 0 % 0 - 2 % [facility] Eosinophils/100 WBC (Bld) 2 % 1 - 4 % [facility] Hematocrit (Bld) [Volume fraction] 37.9 % 36.3 - 47.1 % [facility] Hemoglobin (Bld) [Mass/Vol] 12.7 g/dL 11.9 - 15.1 g/dL [facility] Immature granulocytes/100 WBC (Bld) 0 % 0 [facility] Interpretation and review of laboratory results Abnormal [facility] Lymphocytes/100 WBC (Bld) 18 % Low 24 - 43 % [facility] MCH (RBC) [Entitic mass] 29.7 pg 25.2 - 33.5 pg [facility] MCHC (RBC) [Mass/Vol] 33.5 g/dL 28.4 - 34.8 g/dL [facility] MCV (RBC) [Entitic vol] 88.6 fL 82.6 - 102.9 fL [facility] Monocytes/100 WBC (Bld) 10 % 3 - 12 % [facility] NRBC Automated 0.0 0.0 per 100 WBC [facility] Platelet distribution width (Bld) [Ratio] 12.6 % 11.8 - 14.4 % [facility] Platelet mean volume (Bld) [Entitic vol] 10.0 fL 8.1 - 13.5 fL [facility] Platelets (Bld) [#/Vol] 161 10*3/uL [facility] RBC (Bld) [#/Vol] 4.28 10*6/uL 3.95 - 5.1 1 m/uL [facility] Segmented neutrophils/100 WBC (Bld) 70 % High 36 - 65 % [facility] Segs Absolute 4.10 [facility] WBC (Bld) [#/Vol] 5.9 10*3/uL [facility] CBC with Diffon 04-15-2022 Abs. Basophil <0.03 Normal 0.00-0.20 [facility] Comment on above: Performed By: #### B MPX, CDP #### [employer] [address] [place] [address] [employer] Operator: Yordan Lr MD Performed By: #### C DP, BMPX ####[employer])[address] [place], [place] [id number] Lab Director: Yordan Lr MD Abs.Imm.Granulocyte <0.03 Normal 0.00-0.30 [facility] Comment on above: Performed By: #### B MPX, CDP #### [employer] [facility] [place] [address] [employer] Operator: Yordan Lr MD Performed By: #### C DP, BMPX ####[place] [address] Lab Director: Yordan Lr MD Abs.Neutrophil (Seg) 4.10 k/uL Normal 1.50-8.10 [facility] Comment on above: Performed By: #### B MPX, CDP #### [place] [address] [employer] Operator: Yordan Lr MD Performed By: #### C DP, BMPX ####[place] [address] Lab Director: Yordan Lr MD Basophils/100 WBC (Bld) 0 % Normal 0-2 [facility] Comment on above: Performed By: #### B MPX, CDP #### [place] [address] [employer] Operator: Yordan Lr MD Performed By: #### C DP, BMPX ####[place] [address] Lab Director: Yordan Lr MD Eosinophils (Bld) [#/Vol] 0.14 10*3/uL Normal 0.00-0.44 [facility] Comment on above: Performed By: #### B MPX, CDP #### [place] [address] [employer] Operator: Yordan Lr MD Performed By: #### C DP, BMPX ####[place] [address] Lab Director: Yordan Lr MD Eosinophils/100 WBC (Bld) 2 % Normal 1-4 [facility] Comment on above: Performed By: #### B MPX, CDP #### [address] [address] [employer] Operator: Yordan Lr MD Performed By: #### C DP, BMPX ####[address] [address] Lab Director: Yordan Lr MD Erythrocyte distribution width (RBC) [Ratio] 12.6 % Normal 11.8-14.4 [facility] Comment on above: Performed By: #### B MPX, CDP #### [address] [address] [employer] Operator: Yordan Lr MD Performed By: #### C DP, BMPX ####[address] [address] Lab Director: Yordan Lr MD Hematocrit (Bld) [Volume fraction] 37.9 % Normal 36.3-47.1 [facility] Comment on above: Performed By: #### B MPX, CDP #### [address] [address] [employer] Operator: Yordan Lr MD Performed By: #### C DP, BMPX ####[address] [phone] Director: Yordan Lr MD Hemoglobin (Bld) [Mass/Vol] 12.7 g/dL Normal 11.9-15.1 [facility] Comment on above: Performed By: #### B MPX, CDP #### [facility] [employer] [address] [place] [address] [employer] Operator: Yordan Lr MD Performed By: #### C DP, BMPX ####[facility] [address] [place] [address] [phone] Director: Yordan Lr MD Immature granulocytes/100 WBC (Bld) 0 % Normal 0 [facility] Comment on above: Performed By: #### B MPX, CDP #### [facility] [address] [place] [address] Pin [employer] Operator: Yordan Lr MD Performed By: #### C DP, BMPX ####[facility] [address] [place], [place] [phone] Director: Yordan Lr MD Lymphocytes (Bld) [#/Vol] 1.04 10*3/uL Low 1.10-3.70 [facility] Comment on above: Performed By: #### B MPX, CDP #### [address] [address] [employer] Operator: Yordan Lr MD Performed By: #### C DP, BMPX ####[address] [phone] Director: Yordan Lr MD Lymphocytes/100 WBC (Bld) 18 % Low 24-43 [facility] Comment on above: Performed By: #### B MPX, CDP #### [place] [address] [place] [address] [employer] Operator: Yordan Lr MD Performed By: #### C DP, BMPX ####[address] [phone] Director: Yordan Lr MD MCH (RBC) [Entitic mass] 29.7 pg Normal 25.2-33.5 [facility] Comment on above: Performed By: #### B MPX, CDP #### [facility] [address] [place] [address] Pin [employer] Operator: Yordan Lr MD Performed By: #### C DP, BMPX ####[facility] [address] [place] [address] [phone] Director: Yordan Lr MD MCHC (RBC) [Mass/Vol] 33.5 g/dL Normal 28.4-34.8 [facility] Comment on above: Performed By: #### B MPX, CDP #### [address] [address] [employer] Operator: Yordan Lr MD Performed By: #### C DP, BMPX ####[address] [phone] Director: Yordan Lr MD MCV (RBC) [Entitic vol] 88.6 fL Normal 82.6-102.9 [facility] Comment on above: Performed By: #### B MPX, CDP #### [address] [address] [employer] Operator: Yordan Lr MD Performed By: #### C DP, BMPX ####[address] [phone] Director: Yordan Lr MD Monocytes (Bld) [#/Vol] 0.58 10*3/uL Normal 0.10-1.20 [facility] Comment on above: Performed By: #### B MPX, CDP #### [address] [address] [employer] Operator: Yordan Lr MD Performed By: #### C DP, BMPX ####[address] [phone] Director: Yordan Lr MD Monocytes/100 WBC (Bld) 10 % Normal 3-12 [facility] Comment on above: Performed By: #### B MPX, CDP #### [address] [address] [employer] Operator: Yordan Lr MD Performed By: #### C DP, BMPX ####[address] [phone] Director: Yordan Lr MD Neutrophil (Seg) 70 % High 36-65 [facility] Comment on above: Performed By: #### B MPX, CDP #### [address] [address] [employer] Operator: Yordan Lr MD Performed By: #### C DP, BMPX ####[address] [phone] Director: Yordan Lr MD NRBC Automated 0.0 per 100 WBC Normal 0.0 [facility] Comment on above: Performed By: #### B MPX, CDP #### [address] [address] [employer] Operator: Yordan Lr MD Performed By: #### C DP, BMPX ####[address] [phone] Director: Yordan Lr MD Platelet mean volume (Bld) [Entitic vol] 10.0 fL Normal 8.1-13.5 [facility] Comment on above: Performed By: #### B MPX, CDP #### [address] [address] [employer] Operator: Yordan Lr MD Performed By: #### C DP, BMPX ####[address] [phone] Director: Yordan Lr MD Platelets (Bld) [#/Vol] 161 10*3/uL Normal 138-453 [facility] Comment on above: Performed By: #### B MPX, CDP #### [address] [address] [employer] Operator: Yordan Lr MD Performed By: #### C DP, BMPX ####[address] [phone] Director: Yordan Lr MD RBC (Bld) [#/Vol] 4.28 10*6/uL Normal 3.95-5.11 [facility] Comment on above: Performed By: #### B MPX, CDP #### [address] [address] [employer] Operator: Yordan Lr MD Performed By: #### C DP, BMPX ####[address] [address] Lab Director: Yordan Lr MD WBC (Bld) [#/Vol] 5.9 10*3/uL Normal 3.5-11.3 [facility] Comment on above: Performed By: #### B MPX, CDP #### [address] [address] [employer] Operator: Yordan Lr MD Performed By: #### C DP, BMPX ####[address] [phone] Director: Yordan Lr MD Drug Scr, Abuse, Uron 2021 Amphetamine(s),Ur Negative Normal NEG [facility] Comment on above: Result Comment: (Positive cutoff 1000 ng/mL) Performed By: #### U AX, RAMA #### [address] [address] [employer] Operator: Yordan Lr MD Barbiturate(s),Ur Negative Normal NEG [facility] Comment on above: Result Comment: (Positive cutoff 200 ng/mL) Performed By: #### U AX, RAMA #### [address] [address] [employer] Operator: Yordan Lr MD Benzodiazepine(s) Negative Normal NEG [facility] Comment on above: Result Comment: (Positive cutoff 200 ng/mL) Performed By: #### U AX, RAMA #### [facility] [employer] [address] [place] [address] Pin [employer] Operator: Yordan Lr MD Cannabinoid(s),Ur Negative Normal NEG [facility] Comment on above: Result Comment: (Positive cutoff 50 ng/mL) Performed By: #### U AX, RAMA #### [facility] [employer] [address] [place] [address] Pin [employer] Operator: Yordan Lr MD Cocaine Metabolite Negative Normal NEG [facility] Comment on above: Result Comment: (Positive cutoff 300 ng/mL) Performed By: #### U AX, RAMA #### [facility] [employer] [address] [place] [address] [employer] Operator: Yordan Lr MD Fentanyl, Urine Negative Normal NEG [facility] Comment on above: Result Comment: (Positive cutoff 5 ng/ml) Performed By: #### U AX, RAMA #### [address] [address] [employer] Operator: Yordan Lr MD Interpretive Info Assay provides medical screening only. The absence of expected drug(s) and/or Normal [facility] Comment on above: Result Comment: meta bolite(s) may indicate diluted or adulterated urine, limitations of testing or timing of collection. Testing for legal purposes should be confirmed by another method. To request confirmation of test result, please call the lab within 7 days of sample submission. Performed By: #### U AX, RAMA #### [facility] [employer] [address] [place] [address] [employer] Operator: Yordan Lr MD Methadone Ql (U) Negative Normal NEG [facility] Comment on above: Result Comment: (Positive cutoff 300 ng/mL) Performed By: #### U AX, RAMA #### [facility] [address] [place] [address] Pin [employer] Operator: Yordan Lr MD Opiate(s), Ur Negative Normal NEG [facility] Comment on above: Result Comment: (Positive cutoff 300 ng/mL) Performed By: #### U AX, RAMA #### [facility] [address] [place] [address] Pin [employer] Machine Operator: Yordan Lr MD Oxycodone, Urine Negative Normal NEG [facility] Comment on above: Result Comment: (Positive cutoff 100 ng/mL) Performed By: #### U AX, RAMA #### [facility] [employer] [address] [place] [address] [employer] Operator: Yordan Lr MD Phencyclidine, Ur Negative Normal NEG [facility] Comment on above: Result Comment: (Positive cutoff 25 ng/mL) Performed By: #### U AX, RAMA #### [facility] [employer] [address] [place] [phone] [employer] Operator: Yordan Lr MD Hemoglobin A1Con 04-15-2022 Glucose [Mass/Vol] 120 mg/dL Normal [facility] Comment on above: Result Comment: The ADA and AACC recommend providing the estimated average glucose result to permit better patient understanding of their HBA1c result. Performed By: #### F T4, TSH, VD25, B12, ERTPF, GLYHGB, ALB ####[facility] [id number] [place] [address] Lab Director: Yordan Lr MD Performed By: #### G LYHGB, ALB, ERTPF, B12, FT4, TSH, VD25 ####[facility] [address] [place] [address] Lab Director: Yordan Lr MD HbA1c (Bld) [Mass fraction] 5.8 % Normal 4.0-6.0 [facility] Comment on above: Performed By: #### F T4, TSH, VD25, B12, ERTPF, GLYHGB, ALB ####[facility] [address] [place] [address] Lab Director: Yordan Lr MD Performed By: #### G LYHGB, ALB, ERTPF, B12, FT4, TSH, VD25 ####[facility] [address] [place] [address] Lab Director: Yordan Lr MD Glucose [Mass/Vol] 120 mg/dL [facility] Comment on above: The ADA and AACC rec ommend providing the estimated average glucose result to permit better patient understanding of their HBA1c result. HbA1c (Bld) [Mass fraction] 5.8 % 4.0 - 6.0 % [facility] UA w/Reflex Cultureon 2021 Bilirubin, SemiQt,Ur Negative Normal NEG [facility] Comment on above: Performed By: #### U AX, RAMA #### [address] [address] Pin Feather Machine Operator: Yordan Lr MD Blood, Urine Negative Normal NEG [facility] Comment on above: Performed By: #### U AX, RAMA #### [address] [address] Pin Feather Machine Operator: Yordan Lr MD Clarity (U) Clear Normal CLEAR [facility] Comment on above: Performed By: #### U AX, RAMA #### [address] [address] Pin Feather Machine Operator: Yordan Lr MD Color (U) Yellow Normal YEL [facility] Comment on above: Performed By: #### U AX, RAMA #### [address] [address] Pin Feather Machine Operator: Yordan Lr MD Comment Microscopic exam not performed based on chemical results unless requested in Normal [facility] Comment on above: Result Comment: orig inal order. Performed By: #### U AX, RAMA #### [address] [address] Pin Feather Machine Operator: Yordan Lr MD Glucose Ql (U) Negative Normal NEG [facility] Comment on above: Performed By: #### U AX, RAMA #### [address] [address] Pin Feather Machine Operator: Yordan Lr MD Ketones Ql (U) TRACE Abnormal NEG [facility] Comment on above: Performed By: #### U AX, RAMA #### [address] [address] Pin Feather Machine Operator: Yordan Lr MD Leukocyte esterase Test strip Ql (U) Negative Normal NEG [facility] Comment on above: Performed By: #### U AX, RAMA #### [address] [address] Pin Feather Machine Operator: Yordan Lr MD Nitrite,Ur Negative Normal NEG [facility] Comment on above: Performed By: #### U AX, RAMA #### [address] [address] Pin Feather Machine Operator: Yordan Lr MD PH,Ur 6.5 Normal 5.0-8.0 [facility] Comment on above: Performed By: #### U AX, RAMA #### [address] [address] Pin Feather Machine Operator: Yordan Lr MD Protein Ql (U) Negative Normal NEG [facility] Comment on above: Performed By: #### U AX, RAMA #### [address] [address] Pin Feather Machine Operator: Yordan Lr MD Spec. [place],Ur 1.047 High 1.005-1.030 [facility] Comment on above: Performed By: #### U AX, RAMA #### [address] [address] Pin Feather Machine Operator: Yordan Lr MD Urobilinogen,Ur Normal Normal NORM [facility] Comment on above: Performed By: #### U AX, RAMA #### [facility] [address] [place], [place] [id number] Pin Feather Machine Operator: Yordan Lr MD Albuminon 04-14-2022 Albumin [Mass/Vol] 4.1 g/dL Normal 3.5-5.2 [facility] Comment on above: Performed By: #### F T4, TSH, VD25, B12, ERTPF, GLYHGB, ALB #### [facility] [address] [place], [place] [id number] Pin Feather Machine Operator: Yordan Lr MD Performed By: #### G LYHGB, ALB, ERTPF, B12, FT4, TSH, VD25 #### [facility] [address] [place], [place] [id number] Pin Feather Machine Operator: Yordan Lr MD Albumin [Mass/Vol] 4.1 g/dL 3.5 - 5.2 g/dL [facility] CBC AUTO DIFFon 04-14-2022 BASO # 0.0 103/ul Normal 0.0-0.1 [facility] Comment on above: Performed By: #### C BC #### [facility] [address] [place] [address] Dr. Brii Humphries Basophils/100 WBC (Bld) 0.4 % Normal 0.2-2.0 [facility] Comment on above: Performed By: #### C BC #### [facility] [address] [place] [address] Dr. Brii Humphries EO # 0.2 103/ul Normal 0.0-0.7 [facility] Comment on above: Performed By: #### C BC #### [facility] [address] [place] [address] Dr. Brii Humphries Eosinophils/100 WBC (Bld) 2.0 % Normal 0.9-7.0 [facility] Comment on above: Performed By: #### C BC #### [facility] [address] [place] [address] Dr. Brii Humphries Hematocrit (Bld) [Volume fraction] 40.1 % Normal 36.0-48.0 [facility] Comment on above: Performed By: #### C BC #### [facility] [address] [place] [address] Dr. Brii Humphries Hemoglobin (Bld) [Mass/Vol] 13.1 g/dL Normal 12.0-16.0 [facility] Comment on above: Performed By: #### C BC #### [facility] [address] [place] [address] Dr. Brii Humphries IG # 0.02 10e3/ul Normal 0.00-0.03 [facility] Comment on above: Performed By: #### C BC #### [facility] [address] [place] [address] Dr. Brii Humphries IG % 0.3 % Normal 0.0-0.5 [facility] Comment on above: Performed By: #### C BC #### [facility] [address] [place] [address] Dr. Brii Humphries LYMPH # 1.1 103/ul Critically low 1.2-3.8 [facility] Comment on above: Performed By: #### C BC #### [facility] [address] [place] [address] Dr. Brii Humphries Lymphocytes/100 WBC (Bld) 15.0 % Critically low 20.5-60.0 [facility] Comment on above: Performed By: #### C BC #### [facility] [address] [place] [address] Dr. Brii Humphries MANUAL DIFF REQ NO Normal [facility] Comment on above: Performed By: #### C BC #### [facility] [address] [place] [address] Dr. Brii Humphries MCH (RBC) [Entitic mass] 28.8 pg Normal 26.7-34.0 [facility] Comment on above: Performed By: #### C BC #### [facility] [address] [place] [address] Dr. Brii Humphries MCHC (RBC) [Mass/Vol] 32.7 g/dL Normal 29.9-35.2 [facility] Comment on above: Performed By: #### C BC #### [facility] [address] [address] [address] Brii Humphries MCV (RBC) [Entitic vol] 88.1 fL Normal 81.0-99.0 [facility] Comment on above: Performed By: #### C BC #### [facility] [address] [address] [address] Brii Humphries MONO # 0.5 103/ul Normal 0.3-0.8 [facility] Comment on above: Performed By: #### C BC #### [facility] [address] [address] [address] Brii Humphries Monocytes/100 WBC (Bld) 6.6 % Normal 1.7-12.0 [facility] Comment on above: Performed By: #### C BC #### [facility] [address] [place] [address] Dr. Brii Humphries NEUT # 5.6 103/ul Normal 1.4-6.5 [facility] Comment on above: Performed By: #### C BC #### [facility] [address] [place] [address] Dr. Brii Humphries Neutrophils/100 WBC (Bld) 75.7 % Critically high 43.0-75.0 [facility] Comment on above: Performed By: #### C BC #### [facility] [address] [address] [address] Brii Humphries Platelet mean volume (Bld) [Entitic vol] 9.7 fL Normal 9.5-13.5 [facility] Comment on above: Performed By: #### C BC #### [facility] [address] [address] [address] Brii Humphries PLT 174 103/ul Normal 150-450 [facility] Comment on above: Performed By: #### C BC #### [facility] [address] [address] [address] Brii Humphries RBC 4.55 106/ul Normal 4.20-5.40 [facility] Comment on above: Performed By: #### C BC #### [facility] [address] [place], [place] [address] Dr. Brii Humphries WBC 7.4 103/ul Normal 4.0-11.0 [facility] Comment on above: Performed By: #### C BC #### [facility] [address] [place], [place] [address] CHEST ABDOMEN PELVIS [...] Jesusita Quintanilla MD 04/14/22 Final result Normal [facility] CT CSPINE WO CONon CT [facility] CON EXAMINATION: CT [facility] CON, 04/14/2022 12:47 PM PST HISTORY: Closed [...] SHAHZAD TOMAS Date: 2022-04-14 16:45 Normal [facility] CT FACIAL BONES WO CONon CT FACIAL BONES CON CT MAXILLOFACIAL WITHOUT CONTRAST. CLINICAL HISTORY: [...] FELIPA HOPPER Date: 2022-04-14 16:48 Normal [facility] CT HEAD WO CONon 04-14-2022 CT [...] by: FELIPA HOPPER Date: 2022-04-14 16:43 Normal [facility] CT HEAD WO CONTRASTon 2021 CT [...] Jayant Rodrigues MD 04/14/22 Final result Normal [facility] Acute left subdural hematoma overlying the parietooccipital lobes measuring up to 4 mm in thickness with no significant associated mass effect. Critical results were called by Dr. Jayant Martínez to Dr. Cain on 04/14/2022 at 8:16 p.m.. [facility] EXAMINATION: CT OF THE HEAD WITHOUT CONTRAST [...] of the visualized skull or soft tissues. [facility] Jayant Rodrigues MD - 04/14/2022 EXAMINATION: CT [...] Dr. Cain on 04/14/2022 at 8:16 p.m.. [employer] Phone: Radiology Study observation (narrative) [employer] Phone: CT HEAD WO CONTRASTOrdered B y: Jayant Rodrigues on 04-14-2022 [employer] Phone: CT LUMBAR SPINE TRAUMA RECON STRUCTIONon [...] Jesusita Quintanilla MD 04/14/22 Final result Normal [facility] CT THORACIC SPINE TRAUMA REC ONSTRUCTIONon 04-14-2022 [...] Jesusita Quintanilla MD 04/14/22 Final result Normal [facility] Covid-19 PCR ([facility])on SARS-CoV-2 (COVID-19) RNA LI+probe Ql (Unsp spec) Not detected Normal NOT DETECTED [facility] Comment on above: Result Comment: When [...] for this test is supported by the [employer] Worker of Health and Human Service's declaration that [...] longer be used). Performed By: #### C [facility] #### [facility] [address] [place] [address] Dr. Brii Humphries DRUG SCREEN MULTI URINEon Amphetamine Screen, Ur Negative NEGATIVE [facility] [employer] Comment on above: (Positive cutoff 1000 ng/mL) Barbiturate Screen, Ur Negative NEGATIVE [facility] Comment on above: (Positive cutoff 200 ng/mL) Benzodiazepine Screen, Urine Negative NEGATIVE [facility] Comment on above: (Positive cutoff 200 ng/mL) Cannabinoid Scrn, Ur Negative NEGATIVE [facility] Comment on above: (Positive cutoff 50 ng/mL) Cocaine Metabolite, Urine Negative NEGATIVE [facility] Comment on above: (Positive cutoff 300 ng/mL) Fentanyl, Ur Negative NEGATIVE [facility] Comment on above: (Positive cutoff 5 ng/ml) Methadone Screen, Urine Negative NEGATIVE [facility] Comment on above: (Positive cutoff 300 ng/mL) Opiates, Urine Negative NEGATIVE [facility] Comment on above: (Positive cutoff 300 ng/mL) Oxycodone Screen, Ur Negative NEGATIVE [facility] Comment on above: (Positive cutoff 100 ng/mL) Phencyclidine, Urine Negative NEGATIVE [facility] [employer] Comment on above: (Positive cutoff 25 ng/mL) Test Information Assay provides medical screening only. The absence of expected drug(s) and/or metabolite(s) may indicate diluted or adulterated urine, limitations of testing or timing of collection. [employer] Comment on above: Testing for legal pu rposes should be confirmed by another method. To request confirmation of test result, please call the lab within 7 days of sample submission. [employer] No Panel Informationon 04-14 1. No acute [...] degenerative changes of the upper lumbar spine. [facility] Jesusita Quintanilla MD - 04/14/2022 [...] are likely hemangiomas. 3. Calcified uterine fibroids. [employer] Work Phone: [facility] [employer] Radiology Study observation (narrative) [employer] Phone: No Panel InformationOrdered By: Jesusita Quintanilla on 04-14-2022 [facility] Work Phone: PROF CHEM 8 (BAS METB)on Potassium [Moles/Vol] 4.1 mmol/L Normal 3.5-5.1 [facility] [employer] Comment on above: Performed By: #### B MP #### [facility] [address] [address] [address] Brii Humphries Anion gap [Moles/Vol] 7.5 mmol/L Normal [facility] Comment on above: Performed By: #### B MP #### [facility] [address] [place], [place] [address] Dr. Brii Humphries Calcium [Mass/Vol] 10.6 mg/dL Critically high 8.5-10.1 [facility] Comment on above: Performed By: #### B MP #### [facility] [address] [address] [address] Brii Humphries Chloride [Moles/Vol] 106 mmol/L Normal 98-107 [facility] Comment on above: Performed By: #### B MP #### [facility] [address] [address] [address] Brii Humphries CO2 [Moles/Vol] 28.6 mmol/L Normal 21.0-32.0 [facility] Comment on above: Performed By: #### B MP #### [facility] [address] [address] [address] Brii Humphries Creatinine [Mass/Vol] 0.90 mg/dL Normal 0.55-1.02 [facility] Comment on above: Performed By: #### B MP #### [facility] [address] [address] [address] Brii Humphries EGFR-AF [place] >60 Normal >=60 [facility] Comment on above: Performed By: #### B MP #### [facility] [address] [address] [address] Brii Humphries EGFR-NON AF [place] =60 Normal >=60 [facility] Comment on above: Performed By: #### B MP #### [facility] [address] [address] [address] Brii Humphries Glucose [Mass/Vol] 106 mg/dL Normal 74-106 [facility] [place] [facility] Comment on above: Performed By: #### B MP #### [facility] [address] [address] [address] Brii Humphries Sodium [Moles/Vol] 138 mmol/L Normal 136-145 [facility] [place] [facility] Comment on above: Performed By: #### B MP #### [facility] [address] [address] [address] Brii Humphries Urea nitrogen [Mass/Vol] 22.0 mg/dL Critically high 7.0-18.0 [facility] Comment on above: Performed By: #### B MP #### [facility] [address] [place] [address] Dr. Brii Humphries Urea nitrogen/Creatinine [Mass ratio] 24.4 mg/mg Normal [facility] Comment on above: Performed By: #### B MP #### [facility] [address] [place] [address] Dr. Brii Humphries PROTIMEon 04-14-2022 PT Coag (PPP) [Time] 10.9 s Normal 9.0-11.6 [facility] Comment on above: Performed By: #### P TT, PT #### [facility] [address] [place] [address] Dr. Brii Humphries INR Coag (PPP) [Relative time] 1.01 {INR} Normal [facility] Comment on above: Performed By: #### P TT, PT #### [facility] [address] [place] [address] Dr. Brii Humphries INR GUIDELINES SEE BELOW Normal [facility] Comment on above: Result Comment: RAMSEY RED INR: 2.0 - 3.0 CONDITIONS NOT LISTED BELOW 2.5 - 3.5 FOR PROSTHETIC HEART VALVE REPLACEMENT 2.5 - 3.5 RECURRENT THROMBOSIS Performed By: #### P TT, PT #### [facility] [address] [place] [address] Dr. Brii Humphries PTTon 04-14-2022 aPTT Coag (Bld) [Time] 29.1 s Normal 22.3-36.2 Th [facility] Comment on above: Performed By: #### P TT, PT #### [facility] [address] [place] [address] Dr. Brii Humphries T4, Freeon 04-14-2022 Thyroxine, Free 1.18 ng/dL 0.93 - 1.70 ng/dL [facility] TROPONIN, HIGH SENSITIVITYon 04-14-2022 HSTROP 12.5 pg/mL Normal 4.0-51.3 [facility] Comment on above: Result Comment: CUT- OFF POINTS HAVE BEEN ESTABLISHED BASED ON THE FOURTH UNIVERSAL DEFINITIONS OF MYOCARDIAL INFARCTION. THE UPPER REFERENCE LIMIT (URL) OF TROPONIN, DEFINED THE 99TH PERCENTILE OF cTnI DISTRIBUTION IN A REFERENCE POPULATION, HAS BEEN CONFIRMED THE DECISION THRESHOLD FOR [place] DIAGNOSIS. Performed By: #### H STROPN ####[facility] [address] [place], [place] [address]KfChi Humphries TSHon 04-14-2022 TSH Qn 3.10 m[IU]/L [facility] TYPE AND SCREENon 04-14-2022 ABO/Rh Positive [facility] Arm Band Number BE [id number] [facility] Expiration Date 04/17/2022,2359 [facility] Thyroid Stim. Horm.on 2021 Thyroid Stim. Horm. 3.10 uIU/mL Normal 0.30-5.00 [facility] Comment on above: Performed By: #### F T4, TSH, VD25, B12, ERTPF, GLYHGB, ALB ####[facility] [address] [place] [id number] Lab Director: Yordan Lr MD Performed By: #### G LYHGB, ALB, ERTPF, B12, FT4, TSH, VD25 #### [facility] [place], [place] [id number] Pin Feather Machine Operator: Yordan Lr MD Thyroxine, Freeon 04-14-2022 Thyroxine, Free 1.18 ng/dL Normal 0.93-1.70 [facility] Comment on above: Performed By: #### F T4, TSH, VD25, B12, ERTPF, GLYHGB, ALB ####[facility] [address] [place] [address] Lab Director: Yordan Lr MD Performed By: #### G LYHGB, ALB, ERTPF, B12, FT4, TSH, VD25 #### [employer] [facility] [place], [place] [id number] Pin Feather Machine Operator: Yordan Lr MD Trauma Panelon 04-14-2022 Anion gap [Moles/Vol] 13 mmol/L 9 - 17 mmol/L [facility] aPTT Coag (Bld) [Time] 24.8 s [facility] [employer] Comment on above: IV Heparin Therapy Range: 48.6-77.8 Blood Bank Specimen BILL FOR SERVICES PERFORMED [facility] SCYNEXIS [facility] Carboxyhemoglobin 5.6 % High 0 - 5 % [facility] [employer] Comment on above: Reference Range: Non-Smokers 0-2% Average Smoker 2-4% Heavy Smoker <10% Chloride [Moles/Vol] 103 mmol/L 98 - 10 7 mmol/L [facility] CO2 [Moles/Vol] 17 mmol/L Low 20 - 31 mmol/L [facility] SCYNEXIS [facility] Creatinine [Mass/Vol] 0.71 mg/dL 0.50 - 0.90 mg/dL [facility] Ethanol [Mass/Vol] mg/dL NINF - 10 mg/dL [facility] [employer] Ethanol percent <0.010 NINF - 0.010 % [facility] FIO2 INFORMATION NOT PROVIDED [facility] GFR/1.73 sq M.predicted MDRD (S/P/Bld) [Vol rate/Area] - PINF [facility]ITALTSSI Systems [facility] CAMPUShappn Comment on above: Effective Mar 11, 2022 [...] 104 mg/dL High 70 - 99 mg/dL [facility] hCG Qual Negative NEGATIVE [facility] [employer] Comment on above: Specimens with hCG l evels near the threshold of the test (25 mIU/mL) may give a negative or indeterminate result. In such cases, another test should be performed with a new specimen in 48-72 hours. If early is suspected clinically in this setting, correlation with quantitative serum b-hCG level is suggested. [employer]) has confirmed the use of plasma for this test. This has not been cleared or approved by the U.S. Food and Drug Administration. The FDA has determined that such clearance is not necessary. HCO3 (Bld) [Moles/Vol] 20.1 mmol/L Low 24 - 30 mmol/L [facility] Hematocrit (Bld) [Volume fraction] 40.9 % 36.3 - 47.1 % [facility] Hemoglobin (Bld) [Mass/Vol] 13.6 g/dL 11.9 - 15.1 g/dL [facility] INR Coag (Bld) [Relative time] 1.0 {INR} [facility] Comment on above: Therapeutic Range: Moderate Anticoagulant Intensity: INR = 2.0-3.0 High Anticoagulant Intensity: INR = 2.5-3.5 Interpretation and review of laboratory results Abnormal [facility] MCH (RBC) [Entitic mass] 29.6 pg 25.2 - 33.5 pg [facility] MCHC (RBC) [Mass/Vol] 33.3 g/dL 28.4 - 34.8 g/dL [facility] MCV (RBC) [Entitic vol] 89.1 fL 82.6 - 102.9 fL [facility] Negative Base Excess, Uri 1.3 mmol/L 0.0 - 2.0 mmol/L [facility] NRBC Automated 0.0 0.0 per 100 WBC [facility] Oxygen saturation in Blood 97.0 % High 60.0 - 85.0 % [facility] pCO2, Uri 26.1 Low [facility] pH, Uri 7.499 High 7.320 - 7.420 [facility] Platelet distribution width (Bld) [Ratio] 12.5 % 11.8 - 14.4 % [facility] Platelet mean volume (Bld) [Entitic vol] 9.8 fL 8.1 - 13.5 fL [facility] Platelets (Bld) [#/Vol] 162 10*3/uL [facility] pO2, Uri 74.5 High [facility] Pt Temp 37.0 [facility] RBC (Bld) [#/Vol] 4.59 10*6/uL 3.95 - 5.1 1 m/uL [facility] Sodium [Moles/Vol] 133 mmol/L Low 135 - 144 mmol/L [facility] Urea nitrogen (BldV) [Mass/Vol] 19 mg/dL 8 - 23 mg/dL [facility] WBC (Bld) [#/Vol] 7.8 10*3/uL [facility] Trauma Profileon 04-14-2022 Anion gap [Moles/Vol] 13 mmol/L Normal 9-17 [facility] Comment on above: Performed By: #### F T4, TSH, VD25, B12, ERTPF, GLYHGB, ALB ####[employer])[address] [place] [address] Lab Director: Yordan Lr MD Performed By: #### G LYHGB, ALB, ERTPF, B12, FT4, TSH, VD25 #### [facility] [address] [place] [id number] [employer] Operator: Yordan Lr MD Chloride [Moles/Vol] 103 mmol/L Normal 98-107 [facility] Comment on above: Performed By: #### F T4, TSH, VD25, B12, ERTPF, GLYHGB, ALB ####[employer])[address] [place] [id number] Lab Director: Yordan Lr MD Performed By: #### G LYHGB, ALB, ERTPF, B12, FT4, TSH, VD25 #### [employer]) [address] [place] [address] Pin [employer] Operator: Yordan Lr MD CO2 [Moles/Vol] 17 mmol/L Low 20-31 [facility] Comment on above: Performed By: #### F T4, TSH, VD25, B12, ERTPF, GLYHGB, ALB ####[facility] [address] [place] [address] Lab Director: Yordan Lr MD Performed By: #### G LYHGB, ALB, ERTPF, B12, FT4, TSH, VD25 #### [employer]) [address] [place] [address] Pin Feather Machine Operator: Yordan Lr MD Creatinine [Mass/Vol] 0.71 mg/dL Normal 0.50-0.90 [facility] Comment on above: Performed By: #### F T4, TSH, VD25, B12, ERTPF, GLYHGB, ALB ####[address] [address] Lab Director: Yordan Lr MD Performed By: #### G LYHGB, ALB, ERTPF, B12, FT4, TSH, VD25 #### [address] [address] Pin Fe[employer] Operator: Yordan Lr MD Ethanol [Mass/Vol] mg/dL Normal <10 [facility] Comment on above: Performed By: #### F T4, TSH, VD25, B12, ERTPF, GLYHGB, ALB ####[place] [address] Lab Director: Yordan Lr MD Performed By: #### G LYHGB, ALB, ERTPF, B12, FT4, TSH, VD25 #### [address] [address] [employer] Operator: Yordan Lr MD Ethanol percent <0.010 Normal <0.010 [facility] Comment on above: Performed By: #### F T4, TSH, VD25, B12, ERTPF, GLYHGB, ALB ####[address] [address] Lab Director: Yordan Lr MD Performed By: #### G LYHGB, ALB, ERTPF, B12, FT4, TSH, VD25 #### [address] [address] Pin [employer] Operator: Yordan Lr MD GFR/1.73 sq M.predicted among non-blacks MDRD (S/P/Bld) [Vol rate/Area] mL/min/{1.73_m2} Normal >60 [facility] Comment on above: Result Comment: Effective Mar [...] T4, TSH, VD25, B12, ERTPF, GLYHGB, ALB ####[address] [address] Lab Director: Yordan Lr MD Performed By: #### G LYHGB, ALB, ERTPF, B12, FT4, TSH, VD25 #### [address] [address] Pin Feather Machine Operator: Yordan Lr MD Glucose [Mass/Vol] 104 mg/dL High 70-99 [facility] Comment on above: Performed By: #### F T4, TSH, VD25, B12, ERTPF, GLYHGB, ALB ####[address] [address] Lab Director: Yordan Lr MD Performed By: #### G LYHGB, ALB, ERTPF, B12, FT4, TSH, VD25 #### [address] [address] Pin [employer] Operator: Yordan Lr MD Potassium [Moles/Vol] 4.1 mmol/L Normal 3.7-5.3 [facility] Comment on above: Performed By: #### F T4, TSH, VD25, B12, ERTPF, GLYHGB, ALB ####[address] [address] Lab Director: Yordan Lr MD Performed By: #### G LYHGB, ALB, ERTPF, B12, FT4, TSH, VD25 #### [facility] [employer] [address] [place] [address] Pin Feather Machine Operator: Yordan Lr MD Sodium [Moles/Vol] 133 mmol/L Low 135-144 [facility] Comment on above: Performed By: #### F T4, TSH, VD25, B12, ERTPF, GLYHGB, ALB ####[address] [address] Lab Director: Yordan Lr MD Performed By: #### G LYHGB, ALB, ERTPF, B12, FT4, TSH, VD25 #### [facility] [employer] [address] [place] [address] Pin [employer] Operator: Yordan Lr MD Urea nitrogen [Mass/Vol] 19 mg/dL Normal 8-23 [facility] Comment on above: Performed By: #### F T4, TSH, VD25, B12, ERTPF, GLYHGB, ALB ####[facility] [address] [place] [address] Lab Director: Yordan Lr MD Performed By: #### G LYHGB, ALB, ERTPF, B12, FT4, TSH, VD25 #### [facility] [employer] [address] [place] [address] Pin Feather [employer] Operator: Yordan Lr MD Body Temp. 37.0 Normal [facility] Comment on above: Performed By: #### F T4, TSH, VD25, B12, ERTPF, GLYHGB, ALB ####[facility] [address] [place] [address] Lab Director: Yordan Lr MD Performed By: #### G LYHGB, ALB, ERTPF, B12, FT4, TSH, VD25 #### [facility] [employer] [address] [place] [address] Pin Feather Machine Operator: Yordan Lr MD Carboxy Hgb 5.6 % High 0-5 [facility] Comment on above: Result Comment: Reference Range: Non-Smokers 0-2% Average Smoker 2-4% Heavy Smoker <10% Performed By: #### F T4, TSH, VD25, B12, ERTPF, GLYHGB, ALB ####[address] [address] Lab Director: Yordan Lr MD Performed By: #### G LYHGB, ALB, ERTPF, B12, FT4, TSH, VD25 #### [address] [address] Pin Feather Machine Operator: Yordan Lr MD FIO2 INFORMATION NOT PROVIDED Normal [facility] Comment on above: Performed By: #### F T4, TSH, VD25, B12, ERTPF, GLYHGB, ALB ####[address] [address] Lab Director: Yordan Lr MD Performed By: #### G LYHGB, ALB, ERTPF, B12, FT4, TSH, VD25 #### [address] [address] Pin Feather Machine Operator: Yordan Lr MD HCO3 (Bld) [Moles/Vol] 20.1 mmol/L Low 24-30 [facility] Comment on above: Performed By: #### F T4, TSH, VD25, B12, ERTPF, GLYHGB, ALB ####[address] [address] Lab Director: Yordan Lr MD Performed By: #### G LYHGB, ALB, ERTPF, B12, FT4, TSH, VD25 #### [address] [address] Pin Feather Machine Operator: Yordan Lr MD Negative Base Excess 1.3 mmol/L Normal 0.0-2.0 [facility] Comment on above: Performed By: #### F T4, TSH, VD25, B12, ERTPF, GLYHGB, ALB ####[address] [address] [facility] Director: Yordan Lr MD Performed By: #### G LYHGB, ALB, ERTPF, B12, FT4, TSH, VD25 #### [address] [address] Pin [employer] Operator: Yordan Lr MD Oxygen saturation in Blood 97.0 % High 60.0-85.0 [facility] Comment on above: Performed By: #### F T4, TSH, VD25, B12, ERTPF, GLYHGB, ALB ####[address] [address] [facility] Director: Yordan Lr MD Performed By: #### G LYHGB, ALB, ERTPF, B12, FT4, TSH, VD25 #### [address] [address] Pin [employer] Operator: Yordan Lr MD pCO2 26.1 mm Hg Low 39-55 [facility] Comment on above: Performed By: #### F T4, TSH, VD25, B12, ERTPF, GLYHGB, ALB ####[address] [address] Lab Director: Yordan Lr MD Performed By: #### G LYHGB, ALB, ERTPF, B12, FT4, TSH, VD25 #### [address] [address] Pin [employer] Operator: Yordan Lr MD pH (Bld) 7.499 [pH] High 7.320-7.420 [facility] Comment on above: Performed By: #### F T4, TSH, VD25, B12, ERTPF, GLYHGB, ALB ####[address] [phone] Lab Director: Yordan Lr MD Performed By: #### G LYHGB, ALB, ERTPF, B12, FT4, TSH, VD25 #### [facility] [address] [place] [address] [phone] Pin [employer]ather Machine Operator: Yordan Lr MD pO2 74.5 mm Hg High 30-50 [facility] Comment on above: Performed By: #### F T4, TSH, VD25, B12, ERTPF, GLYHGB, ALB ####[employer])[address] [place] [address] [id number] Lab Director: Yordan Lr MD Performed By: #### G LYHGB, ALB, ERTPF, B12, FT4, TSH, VD25 #### [address] [phone] Pin [employer] Operator: Yordan Lr MD HCG Screen, Blood Negative Normal NEG [facility] Comment on above: Result Comment: Spec imens with hCG levels near the threshold of the test (25 mIU/mL) may give a negative or indeterminate result. In such cases, another test should be performed with a new specimen in 48-72 hours. If early is suspected clinically in this setting, correlation with quantitative serum b-hCG level is suggested. [employer]) has confirmed the use of plasma for this test. This has not been cleared or approved by the U.S. Food and Drug Administration. The FDA has determined that such clearance is not necessary. Performed By: #### F T4, TSH, VD25, B12, ERTPF, GLYHGB, ALB ####[employer])[address] [place] [address] [id number] Lab Director: Yordan Lr MD Performed By: #### G LYHGB, ALB, ERTPF, B12, FT4, TSH, VD25 #### [employer]) [facility] [place], [place] [phone] Pin [employer] Operator: Yordan Lr MD aPTT Coag (Bld) [Time] 24.8 s Normal 20.5-30.5 [facility] Comment on above: Result Comment: IV Heparin Therapy Range: 48.6-77.8 Performed By: #### F T4, TSH, VD25, B12, ERTPF, GLYHGB, ALB ####[address] [address] Lab Director: Yordan Lr MD Performed By: #### G LYHGB, ALB, ERTPF, B12, FT4, TSH, VD25 #### [address] [address] [employer] Operator: Yordan Lr MD INR Coag (PPP) [Relative time] 1.0 {INR} Normal [facility] Comment on above: Result Comment: Therapeutic Range: Moderate Anticoagulant Intensity: INR = 2.0-3.0 High Anticoagulant Intensity: INR = 2.5-3.5 Performed By: #### F T4, TSH, VD25, B12, ERTPF, GLYHGB, ALB ####[place] [address] Lab Director: Yordan Lr MD Performed By: #### G LYHGB, ALB, ERTPF, B12, FT4, TSH, VD25 #### [place] [address] Pin [employer] Operator: Yordan Lr MD PT Coag (PPP) [Time] 10.9 s Normal 9.1-12.3 [facility] Comment on above: Performed By: #### F T4, TSH, VD25, B12, ERTPF, GLYHGB, ALB ####[place] [address] Lab Director: Yordan Lr MD Performed By: #### G LYHGB, ALB, ERTPF, B12, FT4, TSH, VD25 #### [address] [phone] Pin [employer] Operator: Yordan Lr MD Erythrocyte distribution width (RBC) [Ratio] 12.5 % Normal 11.0-15.0 [facility] Comment on above: Performed By: #### F T4, TSH, VD25, B12, ERTPF, GLYHGB, ALB ####[address] [address] Lab Director: Yordan Lr MD Performed By: #### G LYHGB, ALB, ERTPF, B12, FT4, TSH, VD25 #### [facility] [employer] [address] [place] [address] Pin Fe[employer] Operator: Yordan Lr MD Performed By: #### C BC #### [facility] [address] [place] [address] Dr. Brii Humphries Hematocrit (Bld) [Volume fraction] 40.9 % Normal 36.3-47.1 [facility] Comment on above: Performed By: #### F T4, TSH, VD25, B12, ERTPF, GLYHGB, ALB ####[address] [address] Lab Director: Yordan Lr MD Performed By: #### G LYHGB, ALB, ERTPF, B12, FT4, TSH, VD25 #### [facility] [employer] [address] [place] [address] Pin [employer] Operator: Yordan Lr MD Hemoglobin (Bld) [Mass/Vol] 13.6 g/dL Normal 11.9-15.1 [facility] Comment on above: Performed By: #### F T4, TSH, VD25, B12, ERTPF, GLYHGB, ALB ####[address] [address] Lab Director: Yordan Lr MD Performed By: #### G LYHGB, ALB, ERTPF, B12, FT4, TSH, VD25 #### [facility] [employer] [address] [place] [address] Pin [employer] Operator: Yordan Lr MD MCH (RBC) [Entitic mass] 29.6 pg Normal 25.2-33.5 [facility] Comment on above: Performed By: #### F T4, TSH, VD25, B12, ERTPF, GLYHGB, ALB ####[address] [address] Lab Director: Yordan Lr MD Performed By: #### G LYHGB, ALB, ERTPF, B12, FT4, TSH, VD25 #### [address] [phone] Pin [employer] Operator: Yordan Lr MD MCHC (RBC) [Mass/Vol] 33.3 g/dL Normal 28.4-34.8 [facility] Comment on above: Performed By: #### F T4, TSH, VD25, B12, ERTPF, GLYHGB, ALB ####[address] [address] Lab Director: Yordan Lr MD Performed By: #### G LYHGB, ALB, ERTPF, B12, FT4, TSH, VD25 #### [address] [address] Pin [employer] Operator: Yordan Lr MD MCV (RBC) [Entitic vol] 89.1 fL Normal 82.6-102.9 [facility] Comment on above: Performed By: #### F T4, TSH, VD25, B12, ERTPF, GLYHGB, ALB ####[address] [address] Lab Director: Yordan Lr MD Performed By: #### G LYHGB, ALB, ERTPF, B12, FT4, TSH, VD25 #### [address] [address] Pin Feather Machine Operator: Yordan Lr MD NRBC Automated 0.0 per 100 WBC Normal 0.0 [facility] Comment on above: Performed By: #### F T4, TSH, VD25, B12, ERTPF, GLYHGB, ALB ####[place] [address] [facility] Director: Yordan Lr MD Performed By: #### G LYHGB, ALB, ERTPF, B12, FT4, TSH, VD25 #### [place] [address] Pin [employer] Machine Operator: Yordan Lr MD Platelet mean volume (Bld) [Entitic vol] 9.8 fL Normal 8.1-13.5 [facility] Comment on above: Performed By: #### F T4, TSH, VD25, B12, ERTPF, GLYHGB, ALB ####[place] [address] [facility] Director: Yordan Lr MD Performed By: #### G LYHGB, ALB, ERTPF, B12, FT4, TSH, VD25 #### [place] [address] Pin [employer] Operator: Yordan Lr MD Platelets (Bld) [#/Vol] 162 10*3/uL Normal 138-453 [facility] Comment on above: Performed By: #### F T4, TSH, VD25, B12, ERTPF, GLYHGB, ALB ####[place] [address] Lab Director: Yordan Lr MD Performed By: #### G LYHGB, ALB, ERTPF, B12, FT4, TSH, VD25 #### [place] [address] Pin [employer] Machine Operator: Yordan Lr MD RBC (Bld) [#/Vol] 4.59 10*6/uL Normal 3.95-5.11 [facility] Comment on above: Performed By: #### F T4, TSH, VD25, B12, ERTPF, GLYHGB, ALB ####[address] [phone] Lab Director: Yordan Lr MD Performed By: #### G LYHGB, ALB, ERTPF, B12, FT4, TSH, VD25 #### [address] [phone] Pin [employer] Operator: Yordan Lr MD WBC (Bld) [#/Vol] 7.8 10*3/uL Normal 3.5-11.3 [facility] Comment on above: Performed By: #### F T4, TSH, VD25, B12, ERTPF, GLYHGB, ALB ####[address] [address] [facility] Director: Yordan Lr MD Performed By: #### G LYHGB, ALB, ERTPF, B12, FT4, TSH, VD25 #### [address] [address] Pin [employer] Operator: Yordan Lr MD Blood Bank BILL FOR SERVICES PERFORMED Normal [facility] Comment on above: Performed By: #### F T4, TSH, VD25, B12, ERTPF, GLYHGB, ALB ####[address] [phone] Lab Director: Yordan Lr MD Performed By: #### G LYHGB, ALB, ERTPF, B12, FT4, TSH, VD25 #### [address] [address] [employer] Operator: Yordan Lr MD Type + Screenon 04-14-2022 Type + Screen Sample Expiration 04/17/2022,2359 Arm Band Number [id number] ABO/Rh(D) A POSITIVE Antibody Screen NEGATIVE Normal [facility] Comment on above: Performed By: #### T YS #### [address], [place] [phone] Pin [employer] Operator: Yordan Lr MD Performed By: #### T YS ####[employer])[address] [place] [address] [id number] Lab Director: Yordan Lr MD Urinalysis with Reflex to Cu ltureon 04-14-2022 Bilirubin Urine Negative NEGATIVE [facility] Color, UA Yellow Yellow [facility] Glucose, Ur Negative NEGATIVE [facility] Interpretation and review of laboratory results Abnormal [facility] Ketones Ql (U) TRACE Abnormal NEGATIVE [facility] Leukocyte esterase Test strip Ql (U) Negative NEGATIVE [facility] Nitrite, Urine Negative NEGATIVE [facility] pH, UA 6.5 5.0 - 8.0 [facility] Protein, UA Negative NEGATIVE [facility] Specific [place], UA 1.047 High 1.005 - 1.030 [facility] Turbidity UA Clear Clear [facility] Urinalysis Comments Microscopic exam not performed based on chemical results unless requested in original order. [facility] Urine Hgb Negative NEGATIVE [facility] Urobilinogen, Urine Normal Normal [facility] Vitamin B12on 04-14-2022 Cobalamin (Vitamin B12) [Mass/Vol] 721 pg/mL Normal 232-1245 [facility] Comment on above: Performed By: #### F T4, TSH, VD25, B12, ERTPF, GLYHGB, ALB ####[employer])[address] [place], [place] [phone] Lab Director: Yordan Lr MD Performed By: #### G LYHGB, ALB, ERTPF, B12, FT4, TSH, VD25 #### [employer]) [facility] [place], [place] [phone] [employer] Operator: Yordan Lr MD Cobalamin (Vitamin B12) [Mass/Vol] 721 pg/mL 232 - 1245 pg/mL [facility] Vitamin D 25 Hydroxyon 04-14 Vit D, 25-Hydroxy 33.6 ng/mL 29.9 - PIN F ng/mL [facility] Comment on above: Reference Range: Vitamin D status Range Deficiency <20 ng/mL Mild Deficiency 20-30 ng/mL Sufficiency 30-100 ng/mL Toxicity >100 ng/mL [facility] Vitamin D 25 OHon 04-14-2022 Vitamin D 25 OH 33.6 ng/mL Normal >29.9 [facility] Comment on above: Result Comment: Reference Range: Vitamin D status Range Deficiency <20 ng/mL Mild Deficiency 20-30 ng/mL Sufficiency 30-100 ng/mL Toxicity >100 ng/mL Performed By: #### F T4, TSH, VD25, B12, ERTPF, GLYHGB, ALB ####[facility] [address] [place], [place] [id number] Lab Director: Yordan Lr MD Performed By: #### G LYHGB, ALB, ERTPF, B12, FT4, TSH, VD25 ####[employer])[address] [place], [place] [id number] Lab Director: Yordan Lr MD XR HAND SHAUNA [...] by: MANUEL KOCH Date: 2022-04-14 16:53 Normal [facility] PTH INTACTon 04-11-2022 PTH, Intact 37 pg/mL Normal 15-65 [facility] Comment on above: Performed By: #### P THINT #### [facility] [address] [address] [address] Brii Humphries CBC AUTO DIFFon 04-09-2022 BASO # 0.0 103/ul Normal 0.0-0.1 [facility] Comment on above: Performed By: #### C BC ####[facility] [address] [phone]. Brii Humphries Basophils/100 WBC (Bld) 0.6 % Normal 0.2-2.0 [facility] Comment on above: Performed By: #### C BC ####[facility] [address] [place] [phone]. Brii Humphries EO # 0.2 103/ul Normal 0.0-0.7 [facility] Comment on above: Performed By: #### C BC ####[facility] [address] [place] [phone]. Brii Humphries Eosinophils/100 WBC (Bld) 4.4 % Normal 0.9-7.0 [facility] Comment on above: Performed By: #### C BC ####[facility] [address] [place], [place] [address]Dr. Brii Humphries Erythrocyte distribution width (RBC) [Ratio] 12.7 % Normal 11.0-15.0 [facility] Comment on above: Performed By: #### C BC ####[facility] [address] [place], [place] [address]Dr. Brii Humphries Hematocrit (Bld) [Volume fraction] 40.5 % Normal 36.0-48.0 [facility] Comment on above: Performed By: #### C BC ####[facility] [address] [place], [place] [address]Dr. Brii Humphries Hemoglobin (Bld) [Mass/Vol] 13.0 g/dL Normal 12.0-16.0 [facility] Comment on above: Performed By: #### C BC ####[facility] [address] [place], [place] [address]Dr. Brii Humphries IG # 0.01 10e3/ul Normal 0.00-0.03 [facility] Comment on above: Performed By: #### C BC ####[facility] [address] [place], [place] [address]Dr. Brii Humphries IG % 0.2 % Normal 0.0-0.5 [facility] Comment on above: Performed By: #### C BC ####[facility] [address] [phone]. Brii Yandel LYMPH # 1.2 103/ul Normal 1.2-3.8 [facility] Comment on above: Performed By: #### C BC ####[facility] [address] [place] [phone]. Brii Humphries Lymphocytes/100 WBC (Bld) 24.3 % Normal 20.5-60.0 [facility] Comment on above: Performed By: #### C BC ####[facility] [address] [place] [phone]. Brii Humphries MANUAL DIFF REQ NO Normal [facility] Comment on above: Performed By: #### C BC ####[facility] [address] [place] [address] [phone]. Brii Humphries MCH (RBC) [Entitic mass] 28.7 pg Normal 26.7-34.0 [facility] Comment on above: Performed By: #### C BC ####[facility] [address] [place] [phone]. Carijesse Humphries MCHC (RBC) [Mass/Vol] 32.1 g/dL Normal 29.9-35.2 [facility] Comment on above: Performed By: #### C BC ####[facility] [address] [place] [phone]. Brii Humphries MCV (RBC) [Entitic vol] 89.4 fL Normal 81.0-99.0 [facility] Comment on above: Performed By: #### C BC ####[facility] [address] [place] [phone]. Brii Humphries MONO # 0.4 103/ul Normal 0.3-0.8 [facility] Comment on above: Performed By: #### C BC ####[facility] [address] [place] [phone]. Brii Humphries Monocytes/100 WBC (Bld) 7.8 % Normal 1.7-12.0 [facility] Comment on above: Performed By: #### C BC ####[facility] [address] [place] [phone]. Brii Humphries NEUT # 3.1 103/ul Normal 1.4-6.5 [facility] Comment on above: Performed By: #### C BC ####[facility] [address] [place] [phone]. Carijesse Yandel Neutrophils/100 WBC (Bld) 62.7 % Normal 43.0-75.0 [facility] Comment on above: Performed By: #### C BC ####[facility] [address] [address]Dr. Brii Humphries Platelet mean volume (Bld) [Entitic vol] 10.1 fL Normal 9.5-13.5 [facility] Comment on above: Performed By: #### C BC ####[facility] [address] [place], [place] [address]Dr. Brii Humphries PLT 199 103/ul Normal 150-450 [facility] Comment on above: Performed By: #### C BC ####[facility] [address] [place], [place] [address]Dr. Brii Humphries RBC 4.53 106/ul Normal 4.20-5.40 [facility] Comment on above: Performed By: #### C BC ####[facility] [address] [place] [phone]. Brii Humphries WBC 5.0 103/ul Normal 4.0-11.0 [facility] Comment on above: Performed By: #### C BC ####[facility] [address] [place] [phone] Humphries PROF CHEM 8 (BAS METB)on Anion gap [Moles/Vol] 9.9 mmol/L Normal [facility] Comment on above: Performed By: #### T SH, BMP ####[facility] [address] [place] [address]DrChi Humphries Calcium [Mass/Vol] 10.3 mg/dL Critically high 8.5-10.1 [facility] Comment on above: Performed By: #### T SH, BMP ####[facility] [address] [place] [phone]. Brii Humphries Chloride [Moles/Vol] 105 mmol/L Normal 98-107 [facility] Comment on above: Performed By: #### T SH, BMP ####[facility] [address] [place] [phone]. Brii Humphries CO2 [Moles/Vol] 31.8 mmol/L Normal 21.0-32.0 [facility] Comment on above: Performed By: #### T SH, BMP ####[facility] [address] [place] [phone]. Brii Humphries Creatinine [Mass/Vol] 0.80 mg/dL Normal 0.55-1.02 [facility] Comment on above: Performed By: #### T SH, BMP ####[facility] [address] [place] [phone]. Brii Humphries EGFR-AF [place] >60 Normal >=60 [facility] Comment on above: Performed By: #### T SH, BMP ####[facility] [address] [place] [phone]. Brii Humphries EGFR-NON AF [place] >60 Normal >=60 [facility] Comment on above: Performed By: #### T SH, BMP ####[facility] [address] [place] [phone]. Brii Humphries Glucose [Mass/Vol] 109 mg/dL Critically high 74-106 [facility] Comment on above: Performed By: #### T SH, BMP ####[facility] [address] [place] [phone]. Brii Humphries Potassium [Moles/Vol] 4.7 mmol/L Normal 3.5-5.1 [facility] Comment on above: Performed By: #### T SH, BMP ####[facility] [address] [place] [phone]. Brii Humphries Sodium [Moles/Vol] 142 mmol/L Normal 136-145 [facility] Comment on above: Performed By: #### T SH, BMP ####[facility] [address] [place], [place] [address]Fb. Brii Humphries Urea nitrogen [Mass/Vol] 22.0 mg/dL Critically high 7.0-18.0 [facility] Comment on above: Performed By: #### T SH, BMP ####[facility] [address] [place], [place] [address]Hl. Brii Humphries Urea nitrogen/Creatinine [Mass ratio] 27.5 mg/mg Normal [facility] [facility] Comment on above: Performed By: #### T SH, BMP ####[facility] [address] [place], [place] [address]Kv. Brii Humphries TSHon 04-09-2022 TSH 2.719 uIU/mL Normal 0.358-3.740 [facility] Comment on above: Performed By: #### T SH, BMP ####[facility] [address] [place] [id number]. Brii Humphries CNPNon 11-26-2021 CNPN Telephone (INTMLN) AYANA ALVES ([id number]) 1940 F Date Time Provider Department 11/26/21 [...] 81 mg by mouth once daily. - qzplxdd-vlshabdih-tz tamin D3 500 mg(1,250mg) -200 unit per [...] Encounter Status:Closed by HAVEN GR on 11/27/21 [facility] VIT D 1 25 DIHYDROXYon 10-04 Calcitriol(1,25 di-OH Vit D) 91.6 pg/mL Critically high 19.9-79.3 [facility] Comment on above: Performed By: #### V [id number] ####[facility] [address] [place], [place] [address]YbDr. Brii Humphries US URI DOP LEG LTon 10-03-19 [...] by: MANUEL HAYWOOD Date: 2021-10-02 16:46 Normal [facility] FT3on 03-16-2020 FT3 4.04 pg/mL Normal 2.45-5.93 [facility] Comment on above: Performed By: #### 4 232, 5518, 8778 #### [facility] Unless Otherwise Noted [address] [address] / COLA #4724/CLIA # [id number] FT4on 03-16-2020 Free T4 [Mass/Vol] 0.97 ng/dL Normal 0.78-2.44 [facility] Comment on above: Performed By: #### 4 759, 4888, 7490 #### [facility] Unless Otherwise Noted [address] [address] / COLA #4724/CLIA # [id number] TSHon 03-16-2020 TSH Qn 1.36 uIU/ml Normal 0.47-4.68 [facility] Comment on above: Performed By: #### 1 949, 6556, 4869 #### [facility] [place] Unless Otherwise Noted [address] [place] [address] / DENIZ #[id number]/ANGELESIA # [id number] Vital Signs Date Time Vital Sign Value Performing Clinician Facility 11-26-2024 14:20-0400 Body height 154.9 cm Pfo 5 [facility] 11-26-2024 14:20-0400 Body mass index (BMI) [Ratio] 23.18 kg/m2 Pfo 5 [facility] 11-26-2024 14:20-0400 Body temperature 98.01 [degF] Pfo 5 [facility] 11-26-2024 14:20-0400 Body weight 55.61 kg Pfo 5 [facility] 11-26-2024 14:20-0400 Diastolic blood pressure 87 mm[Hg] Pfo 5 [facility] 11-26-2024 14:20-0400 Heart rate 91 /min Pfo 5 [facility] 11-26-2024 14:20-0400 Respiratory rate 18 /min Pfo 5 [facility] 11-26-2024 14:20-0400 SaO2% (BldA) [Mass fraction] 97 % Pfo 5 [facility] 11-26-2024 14:20-0400 Systolic blood pressure 149 mm[Hg] Pfo 5 [facility] 10-27-2024 14:06-0400 Body height 157.5 cm Werner Nolasco DPM Work Phone: [facility] 10-27-2024 14:06-0400 Body mass index (BMI) [Ratio] 21.95 kg/m2 Werner Nolasco DPM Work Phone: [facility] 10-27-2024 14:06-0400 Body weight 54.43 kg Werner DAVISM Work Phone: [facility] 09-23-2024 10:36-0400 Body height 154.9 cm Deepika Brown MD Work Phone: [facility] 09-23-2024 10:36-0400 Body mass index (BMI) [Ratio] 23.16 kg/m2 Deepika Garcia MD Work Phone: [facility] 09-23-2024 10:36-0400 Body weight 55.6 kg Deepika Garcia MD Work Phone: [facility] 09-23-2024 10:36-0400 Diastolic blood pressure 73 mm[Hg] Deepika Garcia MD Work Phone: [facility] 09-23-2024 10:36-0400 Heart rate 88 /min Deepika Garcia MD Work Phone: [facility] 09-23-2024 10:36-0400 Systolic blood pressure 123 mm[Hg] Deepika Garcia MD Work Phone: [facility] 07-28-2024 08:39-0500 Body height 154.9 cm Halima Hooks MD Work Phone: [facility] 07-28-2024 08:39-0500 Body mass index (BMI) [Ratio] 23.85 kg/m2 Halima Hooks MD Work Phone: [facility] 07-28-2024 08:39-0500 Body temperature 97.59 [degF] Halima Hooks MD Work Phone: [facility] 07-28-2024 08:39-0500 Body weight 57.24 kg Halima Hooks MD Work Phone: [facility] 07-28-2024 08:39-0500 Diastolic blood pressure 70 mm[Hg] Halima Hooks MD Work Phone: [facility] 07-28-2024 08:39-0500 Heart rate 70 /min Halima Hooks MD Work Phone: [facility] 07-28-2024 08:39-0500 SaO2% (BldA) [Mass fraction] 95 % Halima Hooks MD Work Phone: [facility] 07-28-2024 08:39-0500 Systolic blood pressure 128 mm[Hg] Halima Hooks MD Work Phone: [facility] 04-26-2024 14:35-0500 Body height 152.4 cm [facility] 04-26-2024 14:35-0500 Body mass index (BMI) [Ratio] 23.7 kg/m2 [facility] 04-26-2024 14:35-0500 Body temperature 98.9 [degF] [facility] 04-26-2024 14:35-0500 Body weight 55.05 kg [facility] 04-26-2024 14:35-0500 Diastolic blood pressure 70 mm[Hg] [facility] 04-26-2024 14:35-0500 Heart rate 99 /min [facility] 04-26-2024 14:35-0500 SaO2% (BldA) [Mass fraction] 94 % [facility] 04-26-2024 14:35-0500 Systolic blood pressure 116 mm[Hg] [facility] 02-24-2024 10:40-0400 Body height 152.4 cm [facility] 02-24-2024 10:40-0400 Body mass index (BMI) [Ratio] 23.4 kg/m2 [facility] 02-24-2024 10:40-0400 Body weight 54.43 kg [facility] 02-24-2024 10:40-0400 Diastolic blood pressure 80 mm[Hg] [facility] 02-24-2024 10:40-0400 Heart rate 87 /min [facility] 02-24-2024 10:40-0400 Systolic blood pressure 128 mm[Hg] [facility] 09-18-2023 14:03-0400 Body height 152.4 cm [facility] 09-18-2023 14:03-0400 Body mass index (BMI) [Ratio] 24.4 kg/m2 [facility] 09-18-2023 14:03-0400 Body weight 56.81 kg [facility] 09-18-2023 14:03-0400 Diastolic blood pressure 72 mm[Hg] [facility] 09-18-2023 14:03-0400 Heart rate 87 /min [facility] 09-18-2023 14:03-0400 Systolic blood pressure 118 mm[Hg] [facility] 07-10-2023 13:05-0500 Body height 157.5 cm Werner Nolasco DPM Work Phone: [facility] 07-10-2023 13:05-0500 Body mass index (BMI) [Ratio] 22.13 kg/m2 Werner Constance DPM Work Phone: [facility] 07-10-2023 13:05-0500 Body weight 54.88 kg Werner Nolasco DPM Work Phone: [facility] 06-30-2023 09:30-0500 Body height 152.4 cm Jessica Maxwell Other [facility] 06-30-2023 09:30-0500 Body mass index (BMI) [Ratio] 24.02 kg/m2 Jessica Maxwell Other [employer] [facility] Other 06-30-2023 09:30-0500 Body weight 55.79 kg Jessica Maxwell Other [facility] 06-30-2023 09:30-0500 Diastolic blood pressure 77 mm[Hg] Jessica Maxwell Other [facility] 06-30-2023 09:30-0500 SaO2% (BldA) [Mass fraction] 97 % Jessica Maxwell Other [employer] Other 06-30-2023 09:30-0500 Systolic blood pressure 134 mm[Hg] Jessica Maxwell Other [facility] 06-23-2023 13:30-0500 Body height 152.4 cm Jessica Maxwell Other [facility] 06-23-2023 13:30-0500 Body mass index (BMI) [Ratio] 24.02 kg/m2 Jessica Maxwell Other [facility] [employer] Other 06-23-2023 13:30-0500 Body weight 55.79 kg Jessica Maxwell Other [facility] 06-23-2023 13:30-0500 Diastolic blood pressure 76 mm[Hg] Jessica Maxwell Other [facility] 06-23-2023 13:30-0500 SaO2% (BldA) [Mass fraction] 100 % Jessica Maxwell Other [facility] [employer] Other 06-23-2023 13:30-0500 Systolic blood pressure 116 mm[Hg] Jessica Maxwell Other [facility] 02-24-2023 13:45-0400 Body height 152.4 cm Jessica Maxwell Other [employer] Other 02-24-2023 13:45-0400 Body mass index (BMI) [Ratio] 22.85 kg/m2 Jessica Maxwell Other [employer] Other 02-24-2023 13:45-0400 Body weight 53.07 kg Jessica Maxwell Other [employer] Other 02-24-2023 13:45-0400 Diastolic blood pressure 80 mm[Hg] Jessica Maxwell Other [employer] Other 02-24-2023 13:45-0400 Systolic blood pressure 121 mm[Hg] Jessica Maxwell Other [employer] Other 08-21-2022 15:00-0400 Body height 152.4 cm Jeb Salas Other [employer] Other 08-21-2022 15:00-0400 Body mass index (BMI) [Ratio] 22.85 kg/m2 Jeb Salas Other [employer] Other 08-21-2022 15:00-0400 Body weight 53.07 kg Jeb Salas Other [employer] Other 04-15-2022 12:00-0500 Body temperature 98.2 [degF] Edin Boo MD Work Phone: [employer] 04-15-2022 12:00-0500 Diastolic blood pressure 74 mm[Hg] Edin Boo MD Work Phone: [facility] 04-15-2022 12:00-0500 Heart rate 61 /min Edin Boo MD Work Phone: [facility] 04-15-2022 12:00-0500 SaO2% (BldA) [Mass fraction] 99 % Edin Boo MD Work Phone: [facility] 04-15-2022 12:00-0500 Systolic blood pressure 133 mm[Hg] Edin Boo MD Work Phone: [facility] 04-15-2022 04:15-0500 Respiratory rate 12 /min Edin Boo MD Work Phone: [facility] 04-14-2022 23:30-0500 Body height 154.9 cm Edin Boo MD Work Phone: [facility] 04-14-2022 23:30-0500 Body mass index (BMI) [Ratio] 21.66 kg/m2 Edin Boo MD Work Phone: [facility] 04-14-2022 23:30-0500 Body weight 52 kg Edin Boo MD Work Phone: [employer] Encounters Encounter Date Encounter Type Care Provider Facility Start: 01-19-2025 End: 01-23-2025 Refill Meeta Gonzales CNA [facility] Comment on above: Obstructive airway d isease [place] Start: 01-04-2025 End: 01-04-2025 Refill Meeta Gonzales CNA [facility] Comment on above: Anxiety Start: 11-26-2024 End: 11-26-2024 ambulatory Pfo Infusion Chair 5 Sydnie Hoang [facility] On[facility] Comment on above: Osteopenia, unspecif ied location (Primary Dx) Start: 11-25-2024 ambulatory [facility] Start: 11-22-2024 End: 11-22-2024 Orders Only Kallie Bright [employer] MACHINE TEND[employer]ENIC ARTIST Work Phone: [facility] Start: 11-21-2024 End: 11-22-2024 Refill Halima Hooks MD Work Phone: [facility] Comment on above: Anxiety Start: 11-14-2024 End: 11-14-2024 Refill Mouna Doe MD Work Phone: [facility] Start: 11-08-2024 End: 11-08-2024 Refill Abeba Hernandez [facility] Comment on above: Obstructive airway d isease ([facility] (Primary Dx) Start: 10-27-2024 End: 10-27-2024 Bamboo flowsheet Werner Nolasco DPM Work Phone: [facility] Start: 10-27-2024 End: 10-27-2024 Bamboo flowsheet Werner Nolasco DPM Work Phone: [facility] Start: 10-27-2024 End: 10-27-2024 Office outpatient visit 15 minutes Werner Nolasco DPM Work Phone: [facility] Comment on above: Dermatophytosis of n ail (Primary Dx); Dystrophic nail; Pain of right great toe Start: 10-27-2024 End: 10-27-2024 ambulatory WERNER NOLASCO Not Available Start: 10-11-2024 End: 10-11-2024 Refill Halima Hooks MD Work Phone: [facility] Comment on above: Anxiety Start: 10-05-2024 End: 10-05-2024 ambulatory JAYANT AMBROCIO [facility] Start: 09-30-2024 End: 09-30-2024 Orders Only Sameera Garcia LPN [facility] Adult Endocrinology, A Department of [facility] Comment on above: Osteopenia, unspecif ied location (Primary Dx) Start: 09-23-2024 End: 09-23-2024 ambulatory [facility] Start: 09-23-2024 End: 09-23-2024 Office outpatient visit 25 minutes Deepika Garcia MD Work Phone: [facility] Adult Endocrinology, A Department of [facility] Comment on above: Postprocedural hypot hyroidism (Primary Dx); Vitamin D deficiency; Senile osteoporosis Start: 09-23-2024 ambulatory [facility] Start: 08-25-2024 End: 08-26-2024 Refill Meeta Gonzales CNA [facility] Comment on above: Anxiety (Primary Dx) Start: 07-28-2024 End: 07-28-2024 Office outpatient new 45 minutes Halima Hooks MD Work Phone: [facility] Comment on above: Pulmonary hypertensi on, unspecified (CMS-HCC) (Primary Dx); Paroxysmal atrial fibrillation ([facility]); Hyperparathyroidism ([facility]); SSS (sick sinus syndrome) ([facility]); Pacemaker Start: 07-28-2024 End: 07-28-2024 ambulatory HALIMA HOOKS [facility] Start: 07-27-2024 End: 07-27-2024 [facility] Start: 06-25-2024 End: 06-28-2024 Refill Deepika Garcia MD Work Phone: [facility] Comment on above: Postprocedural hypot hyroidism; Postoperative hypothyroidism Start: 04-28-2024 End: 04-28-2024 ambulatory JESSICABRIONNA MAXWELL [facility] Start: 04-26-2024 End: 04-26-2024 ambulatory [facility] Work Phone: Start: 04-26-2024 End: 04-26-2024 Patient encounter procedure [facility] Physician [facility] Work Phone: Start: 04-20-2024 End: 04-20-2024 Telephone encounter Maria A Nguyen [facility] Comment on above: 06/08/24 MARCUS METZGER ZEDARA Start: 04-08-2024 Non-patient / Non-visit [facility] Physician [facility] Work Phone: Start: 02-24-2024 End: 02-24-2024 ambulatory [facility] Work Phone: Start: 02-24-2024 End: 02-24-2024 Patient encounter procedure [facility] [place] [facility] Work Phone: Start: 02-18-2024 End: 02-18-2024 ambulatory CHARLETTE [facility] Start: 02-04-2024 End: 02-04-2024 ambulatory JESSICABRIONNA MAXWELL [facility] Start: 01-08-2024 End: 02-08-2024 ambulatory [facility] Start: 12-22-2023 End: 01-08-2024 ambulatory [facility] Start: 12-01-2023 End: 12-02-2023 Emergency department patient visit BO Ross ARNOLD [facility] Start: 11-26-2023 Non-patient / Non-visit [facility] Physician [facility] Work Phone: Start: 11-10-2023 End: 11-10-2023 ambulatory WERNER NOLASCO Not Available Start: 09-24-2023 End: 09-24-2023 ambulatory DEEPIKA [facility] Start: 09-18-2023 End: 09-18-2023 ambulatory [facility] Work Phone: Start: 09-18-2023 End: 09-18-2023 Patient encounter procedure [facility] Physician [facility] Work Phone: Start: 08-22-2023 Non-patient / Non-visit [facility] Physician [facility] Work Phone: Start: 07-14-2023 End: 07-14-2023 ambulatory Jessica Maxwell Other [facility] Other Start: 07-14-2023 Telephone encounter Jessica Maxwell [facility] Start: 07-10-2023 Bamboo flowsheet Werner Salazar er DPM Work Phone: [facility] Start: 07-10-2023 Bamboo flowsheet Wernercherry Meltonh er DPM Work Phone: [facility] Start: 07-10-2023 End: 07-10-2023 Office outpatient visit 15 minutes Werner Nolasco DPM Work Phone: [facility] Comment on above: Dermatophytosis of n ail (Primary Dx); Dystrophic nail; Pain around toenail Start: 06-30-2023 End: 06-30-2023 ambulatory Jessica Maxwell Other [facility] Other Start: 06-30-2023 Office outpatient vi sit 15 minutes Jessica Maxwell [facility] Start: 06-30-2023 End: 06-30-2023 Patient encounter procedure [facility] Physician [facility] Start: 06-27-2023 End: 06-27-2023 ambulatory Jessica Maxwell Other [employer] Other Start: 06-27-2023 Telephone encounter Jessica Maxwell [facility] Start: 06-23-2023 End: 06-23-2023 ambulatory Jessica Maxwell Other [employer] Other Start: 06-23-2023 Office outpatient vi sit 15 minutes Jessica Maxwell [facility] Start: 06-23-2023 End: 06-23-2023 Patient encounter procedure [facility] Work Phone: Start: 06-04-2023 End: 06-04-2023 ambulatory Jeb Salas Other [facility] Other Start: 06-04-2023 Telephone encounter Jeb Salas [facility] Start: 05-13-2023 End: 05-13-2023 ambulatory Jessica Maxwell Other [facility] Other Start: 05-13-2023 Telephone encounter Jessica Alissa [facility] Start: 05-08-2023 End: 05-08-2023 ambulatory Jessica Maxwell Other [facility] Other Start: 05-08-2023 Telephone encounter Jessica Alissa [facility] Start: 04-02-2023 End: 04-02-2023 ambulatory Jessica Alissa Other [facility] Other Start: 04-02-2023 Telephone encounter Jessica Alissa [facility] Start: 03-26-2023 End: 03-26-2023 ambulatory Jessica Alissa Other [facility] Other Start: 03-26-2023 Telephone encounter Jessica Maxwell [facility] Start: 03-11-2023 End: 03-11-2023 ambulatory Jessica Alissa Other [facility] Other Start: 03-11-2023 Telephone encounter Jessica Maxwell [facility] Start: 02-24-2023 End: 02-24-2023 ambulatory Jessica Maxwell Other [facility] Other Start: 02-24-2023 Office outpatient vi sit 15 minutes Jessica Maxwell [facility] Start: 01-22-2023 End: 01-22-2023 ambulatory Jessica Maxwell Other [facility] Other Start: 01-22-2023 Telephone encounter Jessica Alissa [facility] Start: 12-20-2022 End: 12-20-2022 ambulatory Jessica Maxwell Other [facility] Other Start: 12-20-2022 Telephone encounter Jessica Alissa [facility] Start: 09-24-2022 ambulatory JEB SALAS Facility: Start: 09-09-2022 End: 09-09-2022 ambulatory Jeb Salas Other [facility] Other Start: 09-09-2022 Office outpatient vi sit 15 minutes Jeb Salas [facility] Start: 08-21-2022 End: 08-21-2022 ambulatory Jeb Salas Facility:[facility] Start: 08-21-2022 Office outpatient vi sit 15 minutes Jeb Ginna [facility] Start: 08-21-2022 End: 08-21-2022 ambulatory DO Jeb Salas Work Phone: [facility] Work Phone: Start: 08-21-2022 End: 08-21-2022 Patient encounter procedure DO Jeb Salas Work Phone: [facility] Start: 08-19-2022 End: 08-19-2022 ambulatory Jessica Maxwell Other [facility] Other Start: 08-19-2022 Telephone encounter Jessica Maxwell [facility] Start: 07-29-2022 End: 07-29-2022 ambulatory Jeb Salas Other [facility] Other Start: 07-29-2022 Telephone encounter Jeb Salas [facility] Start: 06-21-2022 End: 06-21-2022 ambulatory Jessica Maxwell Other [facility] Other Start: 06-21-2022 Telephone encounter Jessica Maxwell [facility] Start: 06-20-2022 End: 06-20-2022 ambulatory Jessica Maxwell Other [facility] Other Start: 06-20-2022 Telephone encounter Jessica Maxwell [facility] Start: 06-09-2022 End: 07-20-[address] JESSICA MAXWELL Facility:[facility] Start: 04-23-2022 End: 04-26-2022 ambulatory VIVIAN [facility] Start: 04-14-2022 End: 04-14-2022 ambulatory UNKNOWN PROVIDER Facility:[facility] Start: 04-14-2022 End: 04-15-2022 Evaluation and management of inpatient MITALI Feliciano [facility] Start: 04-14-2022 End: 04-15-2022 Evaluation and management of inpatient Edin Boo MD Work Phone: [facility] Comment on above: Subdural hematoma (P rimary Dx) Start: 04-14-2022 End: 04-14-2022 ambulatory SHRUTHI GALVAN . Facility:[facility] Start: 04-14-2022 Emergency department patient visit MITALI Feliciano MD [facility] Start: 04-09-2022 End: 04-10-[address] JESSICA MAXWELL Facility:[facility] Start: 04-05-2022 End: 06-08-[address] JESSICA MAXWELL Facility:[facility] Start: 04-03-2022 Adult health examination Ratna Maxwell Other [facility] Other Start: 04-03-2022 Gynecological examin ation normal Jessica Maxwell Other [facility] Other Start: 01-10-[address] JAYANT Catalan ty:[facility] Start: 11-26-2021 Telephone encounter [facility] (Historica l) [facility] Comment on above: colonoscopy question s Start: 10-05-2021 End: 10-05-2021 ambulatory Jeb Salas Other [facility] Other Start: 10-05-2021 Office outpatient vi sit 15 minutes Jeb Salas [facility] Start: 10-02-2021 End: 10-03-[address] JESSICA MAXWELL Facility:[facility] Procedures Date Procedure Procedure Detail Performing Clinician Start: 02-04-2024 Follow-up visit Follow-up YOEL VELASCO Start: 08-21-2022 Plain X-ray of left hip DO Jeb Salas Work Phone: Start: 08-21-2022 Plain X-ray of left femur DO Jeb Salas Work Phone: Start: 04-15-2022 BASIC METABOLIC PANE L W/ REFLEX TO MG FOR LOW K Vivian [employer] DO Work Phone: Start: 04-15-2022 Blood count [...] Start: 10-18-2021 Adult depression scr eening assessment Maria A Nguyen Start: 02-09-2020 Adult depression scr eening assessment [facility] (Historical) Start: 05-24-2013 General examination of patient Jessica Maxwell Other Depression screening Jessica Maxwell Other Screening for malign ant neoplasm of breast Jessica Maxwell Other Viral screening Jessica Maxwell Other Plan of Treatment Date Care Activity Detail Author Start: 11-26-2025 Tobacco Screening Tobacco Screening [facility] Start: 09-23-2025 Tobacco Screening Tobacco Screening [facility] Start: 08-08-2025 End: 10-19-2025 DXA Skeletal system Views for bone density Dexa scan central skeletal Imaging Routine Senile osteoporosis Expected: 08/08/2025 (Approximate), Expires: 10/19/2025 [facility] Comment on above: Expected: 08/08/2025 (Approximate), Expi res: 10/19/2025 Start: 07-28-2025 Tobacco Screening Tobacco Screening [facility] Start: 07-27-2025 Fall Risk Screening Fall Risk Screening [facility] Start: 07-27-2025 Tobacco Screening Tobacco Screening [facility] Start: 05-02-2025 End: 05-02-2025 Patient encounter procedure 05/02/2025 11:30 AM EST Office Visit [facility], A Department of [facility] [address] [phone] Mouna Doe MD [address] [phone] [facility] Neurology, A Department of [facility] Start: 02-07-2025 Influenza vaccination [facility] Start: 02-03-2025 Tobacco Screening Tobacco Screening [facility] Start: 02-02-2025 End: 02-02-2025 Patient encounter procedure 02/02/2025 1:00 PM EDT Procedure Visit [facility] [address] [place] [id number] Werner Nolasco DPM [address] [place] [address] [facility] Start: 11-29-2024 End: 11-29-2024 Patient encounter procedure 11/29/2024 3:40 PM EDT [facility] [address] [place] [phone] Kallie Bright, BOW MAKER MACHINE TENDER-SCENIC ARTIST [address] [facility] [address], [place], [place] [id number] [facility] Start: 11-26-2024 End: 11-26-2024 ambulatory 11/26/2024 2:30 PM EDT Infusion Sydnie Hoang [facility] - Medical Oncology [address] [place] [phone] Sydnie Hoang [facility] - Medical Oncology Start: 10-28-2024 Fall Risk Screening Fall Risk Screening [facility] Start: 10-27-2024 End: 10-27-2024 Patient encounter procedure 10/27/2024 1:30 PM EDT Office Visit [facility] [address] [place] [phone] Werner Nolasco DPM [address] [place], [place] [phone] Arrived [facility] Comment on above: Arrived Start: 09-30-2024 End: 09-30-2024 Patient encounter procedure [facility] Start: 07-28-2024 End: 07-28-2024 Patient encounter procedure 07/28/2024 9:00 AM EST Office Visit [facility] [address] [place] [phone] Halima Hooks MD [address], [place], [place] [phone] [facility] Start: 07-19-2024 End: 07-19-2024 Patient encounter procedure 07/19/2024 11:30 AM EST Office Visit [facility] [address] [place] [address] Mouna Doe MD [address] [place] [address] [facility] Start: 04-28-2024 End: 04-28-2024 Patient encounter procedure 04/28/2024 10:00 AM EST Appointment [facility] [address] [place] [address] Edin Poe MD [address] [place] [address] [facility] Start: 02-08-2024 Influenza vaccination Influenza Vaccine [facility] Start: 11-10-2023 End: 11-10-2023 Patient encounter procedure 11/10/2023 1:30 PM EDT Office Visit [facility] [address] [facility] [place] [address] Werner Nolasco, KATTY [address] [facility] [place], [place] [phone] [facility] Start: 07-10-2023 End: 07-10-2023 Patient encounter procedure 07/10/2023 1:15 PM EST Office Visit [facility] [address] [place] [phone] Werner Nolasco DPM [address] [place], [place] [phone] Arrived [facility] Comment on above: Arrived Start: 05-03-2023 DIABETES SCREEN DIABETES SCREEN [facility] Start: 03-16-2023 DTaP,Tdap and Td Vaccines (2 - Td or Tdap) DTaP,Tdap and Td Vaccines (2 - Td or Tdap) [facility] Start: 02-07-2023 Influenza vaccination Influenza Vaccine (#1) [facility] Start: 10-18-2022 Depression Screening Depression Screening [facility] Start: 04-24-2022 End: 04-24-2022 Patient encounter procedure 04/24/2022 Office Visit Neurosurgery Flower Preciado, BOW MAKER MACHINE TENDER - SCENIC ARTIST [address] [place] [address] [facility] Start: 02-07-2022 Influenza vaccination INFLUENZA (Season Ended) [facility] Start: 01-07-2022 Influenza vaccination Flu vaccine (#1) [facility] Start: 06-09-2021 ADVANCE DIRECTIVE DISCUSSION ADVANCE DIRECTIVE DISCUSSION [facility] Start: 02-08-2021 Adult depression screening assessment DEPRESSION SCREENING [facility] Start: 2006 BONE DENSITY BONE DENSITY [facility] Start: 2006 Pneumococcal 65+ years Vaccine (1 - PCV) Pneumococcal 65+ years Vaccine (1 - PCV) [facility] Start: 2006 Pneumococcal Vaccine: 65+ Years (1 - PCV) Pneumococcal Vaccine: 65+ Years (1 - PCV) [facility] Start: 2006 PNEUMOCOCCAL: 65+ (1 - PCV) PNEUMOCOCCAL: 65+ (1 - PCV) [facility] Start: 1991 Administration of varicella zoster vaccine Zoster (Shingles) Vaccine (1 of 2) [facility] Start: 1991 Pneumococcal Vaccine: 65+ Years (1 of 1 - PCV) Pneumococcal Vaccine: 65+ Years (1 of 1 - PCV) [facility] Start: 1991 Shingles vaccine (1 of 2) Shingles vaccine (1 of 2) [facility] Start: 1991 SHINGRIX VACCINE (1 of 2) SHINGRIX VACCINE (1 of 2) [facility] Start: 02-23-1960 DTaP,Tdap and Td Vaccines (1 - Tdap) DTaP,Tdap and Td Vaccines (1 - Tdap) [facility] Start: 02-23-1960 DTaP/Tdap/Td vaccine (1 - Tdap) DTaP/Tdap/Td vaccine (1 - Tdap) [facility] Start: 02-23-1960 Urine microalbumin profile DTAP,TDAP,TD (1 - Tdap) [facility] Start: 1953 Depression Screen Depression Screen [facility] Start: 1953 Depression Screening Depression Screening [facility] Start: 1946 COVID-19 VACCINE (#1) COVID-19 VACCINE (#1) [facility] Start: 1941 COVID-19 Vaccine (#1) COVID-19 Vaccine (#1) [facility] Start: 1941 Medicare Annual Wellness (AWV) Medicare Annual Wellness (AWV) [facility] Start: 1941 Medicare Annual Wellness Visit Medicare Annual Wellness Visit [facility] End: 04-15-2022 EKG 12 Lead EKG 12 Lead ECG Routine One Time for 1 Occurrences starting 04/15/2022 until 04/15/2022 [facility] Phone: Comment on above: One Time for 1 Occurrences starting 12/2021 until 04/15/2022 Oxygen therapy [[facility] Data Set] Initiate Oxygen Therapy Protocol Respiratory Care Routine As Needed until discontinued starting 04/14/2022 [facility] Phone: Comment on above: As Needed until discontinued starting End: 04-14-2022 Speech and language therapy regime Speech language pathology evaluation POCKET MARKER Routine One Time for 1 Occurrences starting 04/14/2022 until 04/14/2022 [employer] Phone: Comment on above: One Time for 1 Occurrences starting 11/2021 until 04/14/2022 End: 05-25-2022 Spirometry panel Incentive spirometry Respiratory Care Routine Every 1hr while awake for 41 Days starting 04/14/2022 until 05/25/2022 [employer] Phone: Comment on above: Every 1hr while awake for 41 Days starti ng 04/14/2022 until 05/25/2022 End: 09-23-2025 Thyrotropin [Units/volume] in Serum or Plasma TSH Lab Routine Postprocedural hypothyroidism 1 Occurrences starting 09/23/2024 until 09/23/2025 [employer] Phone: Comment on above: 1 Occurrences starting 09/23/2024 until 09/23/2025 End: 09-23-2025 Thyroxine (T4) free [Mass/volume] in Serum or Plasma T4, free Lab Routine Postprocedural hypothyroidism 1 Occurrences starting 09/23/2024 until 09/23/2025 [facility] Comment on above: 1 Occurrences starting 09/23/2024 until 09/23/2025 End: 04-14-2022 TRAUMA PANEL TRAUMA PANEL Lab STAT One Time for 1 Occurrences starting 04/14/2022 until 04/14/2022 [employer] Phone: Comment on above: One Time for 1 Occurrences starting 11/2021 until 04/14/2022 End: 09-23-2025 Triiodothyronine (T3) Free [Mass/volume] in Serum or Plasma T3, free Lab Routine Postprocedural hypothyroidism 1 Occurrences starting 09/23/2024 until 09/23/2025 [facility] Comment on above: 1 Occurrences starting 09/23/2024 until 09/23/2025 End: 09-23-2025 Vitamin D 25 hydroxy Vitamin D 25 hydroxy Lab Routine Vitamin D deficiency 1 Occurrences starting 09/23/2024 until 09/23/2025 [facility] Comment on above: 1 Occurrences starting 09/23/2024 until 09/23/2025 XR Ankle - left GE 3 Views [facility] Immunizations Immunization Date Immunization Notes Care Provider Liz fernandez 03-16-2013 tetanus and diphther ia toxoids, adsorbed, preservative free, for adult use (5 Lf of tetanus toxoid and 2 Lf of diphtheria toxoid) Jessica Maxwell Other [facility] Payers Date Payer Category Payer Self-pay [id number] 2021 Private Health Insurance [employer] [id number] 2021 Unknown [employer] M [employer] [id number] 2021-Present [address] [place] [address] [id number]. [id number] 2019 Commercial Indemnity MED[employer] M[employer] UAL [id number] 2019 Unknown MMO MMO MEDICARE SUPPLEMENT [id number] 2019-Present [phone] [address] [place] [address] Indemnity [id number] 2006 Medicare MEDICARE MEDICAR E A AND B [id number] 2006-Present [phone] [address] [address] [place] [address] Medicare [id number] 2006 Medicare [id number]. [id number]. [id number] 1959 Medicare [id number] 2.16.840.1.312576.19 1959 Unknown [id number] 2.16840.1.033054.19 1941 Unknown [id number] 2.16.840.1.127238.3.579.2. 175 1941 Unknown [id number] 2.16.840.1.867260.3.579.2. 176 1941 Unknown [id number] 2.16.840.1.865855.3.579.2. 593 1941 Unknown [id number] 2.16840.1.696869.3.579.2. 593 1941 Unknown [id number] 2.16.840.1.781200.3.579.2. 593 1941 Unknown [id number] 2.16.840.1.308938.3.579.2. 593 1941 Unknown [id number] 2.16.840.1.708905.3.579.2. 593 1941 Unknown [id number] 2.16.840.1.118869.3.579.2. 593 1941 Unknown [id number] 2.16.840.1.499702.3.579.2. 593 1941 Unknown [id number] 2.16.840.1.216785.3.579.2. 128 1941 Unknown [id number] 2.16.840.1.537948.3.579.2. 1286 1941 Unknown [id number] 2.16.840.1.122361.3.579.2. 128 1941 Unknown [id number] 2.16.840.1.693237.3.579.2. 128 1941 Unknown [id number] 2.16.840.1.441383.3.579.2. 128 1941 Unknown [id number] 2.840.1.331345.3.579.2. 128 1941 Unknown [id number] 2.840.1.958555.3.579.2. 125 1941 Unknown [id number] 2.16.840.1.426098.3.579.2. 1259 1941 Unknown [id number] 2..840.1.948728.3.579.2. 128 1941 Unknown [id number] 2..840.1.876575.3.579.2. 128 1941 Unknown [id number] 2..840.1.682562.3.579.2. 128 1941 Unknown [id number] 2.16.840.1.274876.3.579.2. 1285 1941 Unknown [id number] 2.16.840.1.259759.3.579.2. 128 1941 Unknown [id number] 2.16.840.1.809866.3.579.2. 128 1941 Unknown [id number] 2.16.840.1.341080.3.579.2. 128 1941 Unknown [id number] 2.16.840.1.567048.3.579.2. 1286 1941 Unknown [id number] 2.16.840.1.447745.3.579.2. 128 1941 Unknown [id number] 2.16.840.1.956485.3.579.2. 1285 1941 Unknown [id number] 2.16.840.1.614038.3.579.2. 128 1941 Unknown [id number] 2.16.840.1.209077.3.579.2. 1285 1941 Unknown [id number] 2.16.840.1.106307.3.579.2. 1286 Unknown [id number] 2.16.840.1.317244.3.579.2. 531 Social History Date Type Detail Facility Start: 04-18-2014 End: 09-24-2023 Tobacco smoking status NHIS Ex-smoker [facility] Start: [birth year]-09-1955 End: 06-09-1967 History of tobacco use Current smoker [facility] Start: 04-18-2014 End: 09-24-2023 Tobacco use and exposure Smokeless tobacco non-user [facility] Start: 05-03-2020 End: 11-26-2024 Alcohol intake Current drinker of alcohol (finding) [facility] Start: 05-03-2020 End: 06-20-2020 Alcohol intake [facility] Start: 01-12-2020 History SDOH Alcohol Frequency 2 [facility] Start: 01-12-2020 History SDOH Alcohol Std Drinks 1 [facility] Start: 1940 Sex Assigned At Female [facility] Start: 06-20-2020 End: 03-27-2023 Sex Assigned At [facility] Start: 06-09-1954 End: 06-09-1967 History of tobacco use [facility]igarette Sm[facility] Phone: Start: 04-15-2022 Tobacco Comment Smoker when she was 17 years old to 23 years old [employer] Phone: Start: 04-15-2022 Alcohol Comment one glass of wine every 4 months - social [employer] [facility] Phone: Start: 1940 Sex Assigned At Not on file [facility] Phone: Start: 04-05-2022 End: 04-15-2022 Exposure to SARS-CoV-2 (event) Not sure [facility] [facility] Phone: Start: 03-26-2023 Alcohol Comment 1-2 drinks less than monthly in the past year, Caffeine intake: 1-2 cups per day, coffee [facility] Adolescent depressio n screening assessment 0 [facility] Start: 02-28-2020 Alcohol Comment Occasional [facility] Start: 01-12-2015 End: 04-26-2024 Sex Female (finding) [facility] Start: 07-07-2019 Gender identity Identifies as female gender (finding) [facility] Start: 07-07-2019 Sexual orientation Heterosexual (finding) [facility] Tobacco smoking stat [facility] Unknown if ever smoked [facility] Work Phone: Medical Equipment Procedure Code Equipment Code Equipment Origin al Text Equipment Identifier Dates Ring Annuloplast y 28mm - [id number] - [id number] Start: 10-30-2018 Ring Annuloplast Contour 3d 26 - [id number] - [id number] Start: 10-30-2018 Lead Capsure Fix Novus 5076-52 - [id number] - [id number] Start: 11-04-2018 Lead Capsure Fix Novus 5076-45 - [id number] - [id number] Start: 11-04-2018 Cardiac pacemaker, device (physical object) ([id number]) [facility] [id number] - [id number] Start: 11-04-2018 Goals Date Patient Goal Desired Activity /State Personal health goal Comment on above: Formatting of this n ote might be different from the original. Evaluation of progress towards goal: plan is home with home health Clinical Notes 10-05-2021 to 11-26-2024 Rosa Paula RN - 11/26/2024 2:30 PM EDTSlinwood Nolasco DPM - 10/27/2024 1:30 PM EDTPatient Barbi Garcia MD - 09/23/2024 10:30 AM EDTMmckenzie Hooks MD - 07/28/2024 9:00 AM EST Note Date & Type Note Facility 11-26-2024 History of Presen t illness Narrative Patient is here for Reclast. She has had it before, verbalized understanding of side effects. Labs WNL. She denies dental procedures. IV started. Reclast infused over 15 minutes. Patient tolerated it well. IV removed. Patient discharged in stable condition. documented in this encounter [facility] 10-27-2024 History of Presen t illness Narrative Images from the original note were not included. Subjective Patient ID: Ayana Alves is a 84 y.o. female who presents for Nail care ( Ayana Alves is a 83 y.o. female who presents for Lamisil FUV. Patient continues vinegar daily. ). HPI Follow-up assessment: Onychodystrophy/mycosis primarily involving the great toes. Last in clinic in November of 2023. Patient completed an initial 90 day course of oral terbinafine therapy June 2023, without adverse effects. Admits to poor compliance with topical care measures; primarily due to the passing of her spouse, Bryan. The condition is again mildly symptomatic with shoe gear; identifying primarily the right great toe; noting pressure discomfort with footwear over the past 1-2 months or so. Denies bleeding or drainage. Self care measures are difficult, ineffective and not practical; increasing risk exposure. Risk factors: Plavix therapy. Toenail deformity. Digital [...] surgery for valve repair CATARACT EXTRACTION COLONOSCOPY [facility], 2012, CT ANGIOGRAM ABDOMEN PELVIS 10/23/2018 CT [...] PT 2/4 bilateral. CFT brisk all digits. Gradient temperature: Warm-warm bilateral. Unremarkable for ankle edema. Neurologic: tactile and light touch sensation intact. Dermatologic: intact. Skin turgor is good. Web space areas are clean, dry, non-inflamed. Unremarkable for eczema or dermatitis. Right great toe: Persistent 20-25% DSO deformity; with proximal mycotic spike again extending to the distal edge of the lunula; toenail dystrophy, thickening, discoloration and crumbly texture of the distal nail plate with periungual mycotic debris; without drainage. Left great toe: Maintains effective nail plate clearing. 5th digits bilateral: Toenail dystrophy and clinical mycosis Orthopedic: Range of motion: Demonstrates functional ankle, subtalar and first MTP joint range of motion. Deformity: Mild HAV deformity bilateral; flexible and reducible. Radiology: Assessment/Plan Symptomatic onychodystrophy/mycosis right great toe. Favorable clearing left great toenail. Status post 2nd 90 day course oral terbinafine therapy completed in June of 2023. Plan: Sharon agreement against any further oral terbinafine therapy at this time. Sharon agreement for topical care measures: Formula 7 preceded by use of vinegar and/or Listerine as directed. Advised as to limited efficacy. Hygiene and skin care measures discussed Procedure: [...] Werner Nolasco DPM documented in this encounter [facility] 10-27-2024 Instructions Werner Nolasco DPM - 10/27/2024 1:30 PM EDT Topical care measures as noted documented in this encounter [facility] 09-23-2024 History of Presen t illness Narrative Reason for Visit: Ayana Alves is a 84 y.o. female who is being seen for follow up of hyperparathyroidism. History of Present Illness: She follows with Dr. Ambrocio (cardiology). She had open heart surgery for valvular disease, s/p repair in 2019 Osteopenia: She has taken forteo and Boniva in the past. She received 1 dose of IV reclast in September 2021. Received 2nd dose of IV Reclast on 10/29/2023 DEXA scan done here in august 2021; had 2% decline in BMD since 2019. L1-L4 spine T score is -2.1. (loss of -1.8%). Bilateral hip T score -2.0 with BMD of 0.758 (loss of -1.6%) DEXA scan from 08/29/2023: LUMBAR SPINE (L1-L3): BMD is 1.014 gm/cm2. T-score is -1.4. LEFT FEMORAL NECK: BMD is 0.726 gm/cm2. T-score is -2.2. LEFT TOTAL FEMUR: BMD is 0.718 gm/cm2. T-score is -2.3. RIGHT FEMORAL NECK: BMD is 0.776 gm/cm2. T-score is -1.9. RIGHT TOTAL FEMUR: BMD is 0.773 gm/cm2. T-score is -1.9. Work up for bone loss revealed high normal calcium with PTH at 51. 24 hour urine calcium from 09/24/2022 was low at 70 with a calcium clearance of 0.007. 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 sometimes lip tremors with stress or fatibue Fractures left wrist pinned in the 1990s Hypertension Hypothyroidism Memory loss slight cognitive decline on aricept as prevention Migraine headache Mitral valve prolapse Osteopenia PONV (postoperative nausea and vomiting) UTI (urinary tract infection) none recent Visual impairment cataract implants, uses one contact on the left Wears contact lenses wears one lense in the left eye Past Surgical History: Procedure Laterality Date BACK SURGERY 2011 CAGE BLEPHAROPLASTY OPHTH Bilateral 10/31/2017 Performed by Daksha Bull MD at [facility] BREAST BIOPSY Left 1960s BENIGN, cyst/tumor, in her 20's CARDIAC PACEMAKER PLACEMENT Left CATARACT EXTRACTION 2007 COLONOSCOPY 06/28/2016 COLONOSCOPY N/A 01/19/2020 Performed by Fermin Gamez MD at [facility] ENDOSCOPY Coronary angiogram and right heart and left ventricular gram/pressure N/A 09/09/2018 Performed by Solomon Piper MD at [facility] CARDIAC CATH LABS EGD with bx N/A 02/28/2020 Performed by Fermin Gamez MD at [facility] ENDOSCOPY EP - Device DC PPM Left 11/04/2018 Performed by Lori Yo MD at [facility] HRC (EP) FOOT SURGERY Bilateral little toes pins in toes, bones shaved down on outsides of both feet MINIMALLY INVASIVE MITRAL VALVE REPAIR 28MM FUTURE RING , MINIMALLY INVASIVE TRICUSPID VALVE REPAIR 26MM CONTOUR 3D RING/ BHARAT N/A 10/30/2018 Performed by Edin Lima MD at [facility] SPINE SURGERY THYROIDECTOMY, PARTIAL TONSILLECTOMY child WRIST SURGERY Left Current Outpatient Medications: clonazePAM (KlonoPIN) 0.5 mg tablet, Take 1 tablet (0.5 mg total) by mouth 2 (two) times a day as needed for anxiety., Disp: 60 tablet, Rfl: 0 clopidogreL (PLAVIX) 75 mg tablet, take 1 tablet by mouth every day, Disp: 90 tablet, Rfl: 1 ipratropium (ATROVENT) 42 mcg (0.06 %) nasal spray, Administer 1 spray into each nostril in the morning., Disp: , Rfl: Lactobacillus acidophilus (PROBIOTIC ORAL), Take by mouth., Disp: , Rfl: levothyroxine (SYNTHROID, LEVOTHROID) 50 MCG tablet, TAKE 1 TABLET BY MOUTH EVERY DAY IN THE MORNING ON EMPTY STOMACH FOR 90 DAYS, Disp: 90 tablet, Rfl: 3 liothyronine (CYTOMEL) 5 MCG tablet, TAKE 1 TABLET BY MOUTH EVERY DAY ON AN EMPTY STOMACH, Disp: 90 tablet, Rfl: 3 spironolactone (ALDACTONE) 25 mg tablet, Take 1 tablet (25 mg total) by mouth in the morning., Disp: , Rfl: VITAMIN D3 125 mcg (5,000 unit) tablet, TAKE 1 TABLET BY MOUTH EVERY DAY IN THE MORNING, Disp: 90 tablet, Rfl: 3 Allergies Allergen Reactions Celecoxib Other reaction(s): Unknown Other opioids Pantoprazole Sulfa (Sulfonamide Antibiotics) Rash hives Family History Problem Relation Age of Onset Ulcerative colitis Mother Arthritis Mother Alcohol abuse Mother Hypertension Mother Stroke Mother Mental illness Mother DEPRESSION, ANXIETY Dementia Mother Migraines Mother Colon cancer Father Arthritis Father Asthma Father Heart attack Father Hypertension Father Hyperlipidemia Father Clotting disorder Father Breast cancer Neg Hx Anesthesia problems Neg Hx Social History: reviewed Review of Systems: Ten systems reviewed and positives are discussed in HPI Physical Exam: Vitals: 09/23/24 1036 BP: 123/73 BP Site: Left Arm BP Postition: Sitting Pulse: 88 Weight: 55.6 kg (122 lb 9.3 oz) Height: 154.9 cm (5' 1 ) Body mass index is 23.16 kg/m . General appearance: Awake alert and oriented in no acute distress, does not appear cushingoid, does not appear Acromegaloid. EYES: No exopthalmos present, extraocular movement intact (EOMI), no lid retraction noted, no chemosis. MOUTH/JAW: No lip enlargement, No widening of teeth spaces. NECK: Thyroid is normal in size. No parathyroid mass palpable CHEST: No nasal flaring, no cough. ACROMEGALIC EXTREMITY FEATURES: Are not present. EXTREMITIES: No edema. NEUROLOGIC: Alert and oriented. Labs: Admission on 12/01/2023, Discharged on 12/02/2023 Component Date Value Ref Range Status White Blood Cells 12/01/2023 4.9 4.0 - 11.0 X10E9/L Final RBC count 12/01/2023 4.24 3.80 - 5.20 X10E12/L Final Hemoglobin 12/01/2023 12.6 11.7 - 15.5 g/dL Final Hematocrit 12/01/2023 36.5 35 - 47 % Final MCV 12/01/2023 86 80 - 100 fL Final MCH 12/01/2023 29.7 27 - 34 pg Final MCHC 12/01/2023 34.5 32 - 36 g/dL Final RDW 12/01/2023 13.3 11.5 - 15.0 % Final Platelets 12/01/2023 171 150 - 450 X10E9/L Final MPV 12/01/2023 7.9 7 - 12 fL Final % neutrophils 12/01/2023 52.6 % Final % lymphocytes 12/01/2023 35.7 % Final % monocytes 12/01/2023 7.7 % Final % eosinophils 12/01/2023 3.5 % Final % Basophils 12/01/2023 0.5 % Final Neutrophils Absolute (A) 12/01/2023 2.6 1.5 - 6.6 X10E9/L Final Lymphocytes Absolute 12/01/2023 1.8 1.0 - 3.5 X10E9/L Final Monocytes Absolute 12/01/2023 0.4 0 - 0.9 X10E9/L Final Eosinophils Absolute 12/01/2023 0.2 0.0 - 0.4 X10E9/L Final Basophils Absolute 12/01/2023 0.0 0.0 - 0.2 X10E9/L Final Sodium 12/01/2023 136 134 - 146 mmol/L Final Potassium, Bld 12/01/2023 3.6 3.5 - 5.0 mmol/L Final Chloride 12/01/2023 109 98 - 109 mmol/L Final CO2 12/01/2023 20 (L) 22 - 32 mmol/L Final Anion gap 12/01/2023 7 5 - 15 mmol/L Final BUN 12/01/2023 24 5 - 27 mg/dL Final Creatinine 12/01/2023 0.82 0.40 - 1.00 mg/dL Final METHOD TRACEABLE TO IDMS STANDARD Glucose 12/01/2023 118 (H) 65 - 99 mg/dL Final Calcium 12/01/2023 9.9 8.5 - 10.5 mg/dL Final eGFR (CKD-EPI)non-race dependent 12/01/2023 71 >59 ml/min/1.73sq.m Final Comment: Reported eGFR is based on the CKD-EPI 2020 equation that does not use a race coefficient. Protime 12/01/2023 11.5 9.8 - 13.2 sec Final NEW REFERENCE RANGE Inr 12/01/2023 1.0 0.8 - 1.1 Final aPTT 12/01/2023 36 26 - 37 sec Final NEW REFERENCE RANGE Assessment: Ayana Painter Long presents today for evaluation of Osteopenia with bone loss/ thyroid nodule and possible Primary hyperparathyroidism. Plan: 1. Postprocedural hypothyroidism - TSH; Future - T4, free; Future - T3, free; Future 2. Vitamin D deficiency - Vitamin D 25 hydroxy; Future 3. Senile osteoporosis - Dexa scan central skeletal; Future Repeat DEXA scan from 2023 shows some bone loss in bilateral hips. She received 2nd dose of IV Reclast on 10/29/2023. Will schedule for next dose of IV Reclast for next month. Will repeat DEXA scan before next visit Return to clinic: 1 yr documented in this encounter [facility] 07-28-2024 History of Presen t illness Narrative Images from the original note were not included. [address] [place] [address] [facility] [id number] Patient: Ayana Alves Date of : 1940 Encounter Date: 07/28/2024 SUBJECTIVE: HISTORY OF PRESENT ILLNESS: Chief Complaint: Chief Complaint Patient presents with Establish Care Hip Pain Left hip Patient ID: Ayana is a 84 y.o. female Very pleasant 84-year-old female here to establish with new primary care provider Past medical history is notable for HTN, paroxysmal AFib, CAD, SSS with pacemaker, hyperparathyroidism. Adherent to her medications as listed in the chart Does utilize Klonopin with some frequency, for anxiety and insomnia. Subsequent to cardiac surgical procedures. Her primary concern today is ongoing hip pain which has been a chronic issue for her, she does follow orthopedics for this, plans to continue Does not limit her ADLs or IADLs. On board specialists: Dr. Hendrix - Neurology Dr. 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 sometimes lip tremors with stress or fatibue Fractures left wrist pinned in the 1990s Hypertension Hypothyroidism Memory loss slight cognitive decline on aricept as prevention Migraine headache Mitral valve prolapse Osteopenia PONV (postoperative nausea and vomiting) UTI (urinary tract infection) none recent Visual impairment cataract implants, uses one contact on the left Wears contact lenses wears one lense in the left eye PAST SURGICAL HISTORY: Past Surgical History: Procedure Laterality Date BACK SURGERY 2011 CAGE BLEPHAROPLASTY OPHTH Bilateral 10/31/2017 Performed by Daksha Bull MD at [facility] BREAST BIOPSY Left BENIGN, cyst/tumor, in her 20's CARDIAC PACEMAKER PLACEMENT Left CATARACT EXTRACTION 2007 COLONOSCOPY 06/28/2016 COLONOSCOPY N/A 01/19/2020 Performed by Fermin aGmez MD at [facility] ENDOSCOPY Coronary angiogram and right heart and left ventricular gram/pressure N/A 09/09/2018 Performed by Solomon Piper MD at [facility] CARDIAC CATH LABS EGD with bx N/A 02/28/2020 Performed by Fermin Gamez MD at [facility] ENDOSCOPY EP - Device DC PPM Left 11/04/2018 Performed by Lori Yo MD at [facility] (EP) FOOT SURGERY Bilateral little toes pins in toes, bones shaved down on outsides of both feet MINIMALLY INVASIVE MITRAL VALVE REPAIR 28MM FUTURE RING , MINIMALLY INVASIVE TRICUSPID VALVE REPAIR 26MM CONTOUR 3D RING/ BHARAT N/A 10/30/2018 Performed by Edin Lima MD at [facility] SPINE SURGERY THYROIDECTOMY, PARTIAL TONSILLECTOMY child WRIST SURGERY Left FAMILY HISTORY: Family History Problem Relation Age of Onset Ulcerative colitis Mother Arthritis Mother Alcohol abuse Mother Hypertension Mother Stroke Mother Mental illness Mother DEPRESSION, ANXIETY Dementia Mother Migraines Mother Colon cancer Father Arthritis Father Asthma Father Heart attack Father Hypertension Father Hyperlipidemia Father Clotting disorder Father Breast cancer Neg Hx Anesthesia problems Neg Hx SOCIAL HISTORY: Social History Socioeconomic History Marital status: Spouse name: Not on file Number of children: Not on file Years of education: Not on file Highest education level: Not on file Occupational History Not on file Tobacco Use Smoking status: Former Current packs/day: 0.00 Average packs/day: 1 pack/day for 7.0 years (7.0 ttl pk-yrs) Types: Cigarettes Start date: 1955 Quit date: 1962 Years since quittin.1 Smokeless tobacco: Never Vaping Use Vaping status: Never Used Substance and Sexual Activity Alcohol use: Yes Comment: Occasional Drug use: No Sexual activity: Defer Other Topics Concern Caffeine Use Yes Social History Narrative Not on file Social Drivers of Health Financial Resource Strain: Not on file Food Insecurity: No Food Insecurity (02/04/2024) Hunger Screening Food Insecurity - Worry: Never True Food Insecurity - Inability: Never True Transportation Needs: Not on file Physical Activity: Not on file Stress: Not on file Social Connections: Not on file Interpersonal Safety: Not on file Housing Instability: Not on file ALLERGY: Allergies Allergen Reactions Celecoxib Other reaction(s): Unknown Other opioids Pantoprazole Sulfa (Sulfonamide Antibiotics) Rash hives MEDICATIONS Current Outpatient Medications Medication Sig Dispense Refill clonazePAM (KlonoPIN) 0.5 mg tablet Take 1 tablet (0.5 mg total) by mouth 2 (two) times a day as needed. clopidogreL (PLAVIX) 75 mg tablet take 1 tablet by mouth every day 90 tablet 1 ipratropium (ATROVENT) 42 mcg (0.06 %) nasal spray Administer 1 spray into each nostril in the morning. Lactobacillus acidophilus (PROBIOTIC ORAL) Take by mouth. levothyroxine (SYNTHROID, LEVOTHROID) 50 MCG tablet TAKE 1 TABLET BY MOUTH EVERY DAY IN THE MORNING ON EMPTY STOMACH FOR 90 DAYS 90 tablet 3 liothyronine (CYTOMEL) 5 MCG tablet TAKE 1 TABLET BY MOUTH EVERY DAY ON AN EMPTY STOMACH 90 tablet 3 spironolactone (ALDACTONE) 25 mg tablet Take 1 tablet (25 mg total) by mouth in the morning. VITAMIN D3 125 mcg (5,000 unit) tablet TAKE 1 TABLET BY MOUTH EVERY DAY IN THE MORNING 90 tablet 3 No current facility-administered medications for this visit. PHYSICAL EXAMINATION: Vitals: 07/28/24 0839 BP: 128/70 Pulse: 70 Temp: 36.4 C (97.6 F) TempSrc: Oral SpO2: 95% Weight: 57.2 kg (126 lb 3.2 oz) Height: 154.9 cm (5' 1 ) Physical Exam Vitals reviewed. Constitutional: General: She is not in acute distress. Appearance: Normal appearance. Eyes: Extraocular Movements: Extraocular movements intact. Pupils: Pupils are equal, round, and reactive to light. Cardiovascular: Rate and Rhythm: Normal rate and regular rhythm. Pulses: Normal pulses. Heart sounds: Normal heart sounds. Pulmonary: Effort: Pulmonary effort is normal. No respiratory distress. Breath sounds: Normal breath sounds. No wheezing or rhonchi. Abdominal: General: Bowel sounds are normal. There is no distension. Palpations: Abdomen is soft. There is no mass. Tenderness: There is no abdominal tenderness. There is no right CVA tenderness, left CVA tenderness or guarding. Musculoskeletal: Cervical back: Normal range of motion and neck supple. Neurological: Mental Status: She is alert and oriented to person, place, and time. Mental status is at baseline. Labs, imaging, and records: I have personally obtained and reviewed the relevant labs/imaging. ASSESSMENT/PLAN: Ratna was seen today for establish care and hip pain. Diagnoses and all orders for this visit: Pulmonary hypertension, unspecified ([facility]) Paroxysmal atrial fibrillation ([facility]) Hyperparathyroidism ([facility]) SSS (sick sinus syndrome) ([facility]) Pacemaker 84-year-old female here to establish care today No plans for acute medication changes History and records updated HALIMA HOOKS MD Family Medicine Physician [facility] / [facility] 07/28/24 This note was completed with voice recognition software. The document was reviewed for errors however some may still be present. Please do not hesitate to contact/Epic msg the author to verify any questions/concerns. documented in this encounter [facility] 04-20-[address] Doe Reschedule: Patient's appointment with Dr Doe on June 08, 2024 needs to be rescheduled at this time due to provider out of clinic. Contacted patient and offered to reschedule for open slots in July, per lamp shades supervisor's instruction. Patient is rescheduled to see Dr Doe at our [place] location on 07/19/23 at 11:30a documented in this encounter [facility] 04-20-[address] Doe Reschedule: Patient's appointment with Dr Doe on June 08, 2024 needs to be rescheduled at this time due to provider out of clinic. Contacted patient and offered to reschedule for open slots in July, per lamp shades supervisor's instruction. Patient is rescheduled to see Dr Doe at our [place] location on 07/19/23 at 11:30a [facility] 02-24-2024 Evaluation note Diagnosis Onset Date Resolution Acute left ankle pain acute February 24, 2024 10:25am Viral URI acute April 26, 2024 2:29pm [facility] Work Phone: 1(353) 765-572109-11-2024 NoteXR SHOULDER RT MIN 2 VWS Procedure: Right shoulder radiographs performed Number of views:3 History:Pain Comparison:12/01/2023 Findings: There is a healing fracture of the surgical which is unchanged in position when compared to the prior study. There are no acute fractures or dislocations seen. No osteolytic or osteoblasticlesions are identified. Impression: Healing fracture right shoulder Finalized by Sharla Elmore DO on 02/18/2024 5:59 [facility] History of Present illness Narrative* Werner Nolasco, KATTY - 07/10/2023 1:15 PM EST Images from the original note were [...] surgery for valve repair CATARACT EXTRACTION COLONOSCOPY Am[place], 2012, , CT ANGIOGRAM ABDOMEN PELVIS 10/23/2018 [...] great toe. Interval clinical improvement following 90 daycourse of oral terbinafine therapy; completed June 2023 without adverse effects Plan: Review of clinical findings, differential diagnosis of toenail condition, etiology and contributing/aggravating factors, treatment strategy, rationale and objectives. Review of overall efficacy, anticipated time frame for effective nail plate clearing, potential forrecalcitrance and/or relapse and the need for further oral therapy. Adjunctive topical care measures: Use of vinegar and/or Listerine as directed. Hygiene and skin care measures discussed Procedure: Toenail debridement: Aseptic technique: Hand and power instrumentation: Onychodebridement in length and thickness, with curettage of any cryptotic margins, all periungual debris; providingeffective symptom and pressure relief; reducing shoe and [...] understanding. Werner Nolasco DPM documented in this [facility]02-01-2024 Instructions* Patient Instructions* Werner Nolasco DPM - 07/10/2023 1:15 PM EST Topical care measures as noted documented in this [facility]01-22-2024 Evaluation note* Encounter Date Diagnosis Assessment Notes Treatment Notes Treatment Clinical Notes Jun, Other chest pain (ICD-10 - R07.89) Pt agrees to stress test and cxr. Recommened she move up her appt w cardiology. If pain increases or becomes more severe go to ER or call [phone] Other 01-15-2024 Evaluation note* Encounter Date Diagnosis Assessment Notes Treatment Notes Treatment Clinical Notes Jun, Screening mammogram, encounter for (ICD-10 - Z12.31) Jun, Rhomboid muscle pain (ICD-10 - M79.18) Pt given HO on home stretches for this area. Discussed massotherapy and PT as well. [facility] Other 10-03-2023 Evaluation note* Encounter Date Diagnosis Assessment Notes Treatment Notes Treatment Clinical Notes Mar, Hypercalcemia (ICD-1 0 - E83.52) [facility] Other 09-18-2023 Evaluation note* Encounter Date Diagnosis Assessment Notes Treatment Notes Treatment Clinical Notes Feb, Chronic fatigue (ICD-10 - R53.82) Discussed differential. Discussed stress and 's health issues. Assess for anemia and metabolic abnormalities. Feb, Acquired hypothyroidism (ICD-10 - E03.9) Overdue for labs - chronic problem Feb, Bruising (ICD-10 - T14.8XXA) Discussed differential. Will obtain recent labs from [place]. [facility] Other 07-14-2023 Evaluation note* Encounter Date Diagnosis Assessment Notes Treatment Notes Treatment Clinical Notes Dec, Vitamin D deficiency (ICD-10 - E55.9) [facility] Other 04-03-2023 Evaluation note* Encounter Date Diagnosis [...] left hip, subsequent encounter (ICD-10 - S76.012D) [facility] Other 03-15-2023 Evaluation note* Encounter Date Diagnosis [...] as documented in the electronic medical record. [facility] Other 02-20-2023 Evaluation note* Encounter Date Diagnosis Assessment Notes Treatment Notes Treatment Clinical Notes Jul, Chronic fatigue (ICD-10 - R53.82) Jul, Essential (primary) hypertension (ICD-10 - I10) [facility] Other 11-07-2022 History of Present illness Narrative* Mabel Guerrero OT - 04/15/2022 4:27 PM EST Occupational Therapy Facility/Department: [facility] CAR 2- STEPDOWN Occupational Therapy Initial [...] Ambulation Assistance: Independent Transfer Assistance: Independent Active Electrician Chief: Yes Mode of Transportation: SUV, Truck Occupation: [...] Hand Dominance Hand Dominance: Right AM-PAC Score [facility] Inpatient Daily Activity Raw Score: 24 (04/15/221631) [facility] Inpatient ADL T-Scale Score : 57.54 (04/15/221631) ADL Inpatient CMS 0-100% Score: 0 (04/15/221631) ADL Inpatient CMS G-Code Modifier : CH (04/15/221631) Therapy Time Individual Concurrent Group Co-treatment Time In 1456 Time Out 1515 Minutes 19 Timed Code Treatment Minutes: 16 Minutes Mabel Guerrero OTR/L * Rekha Carrillo - 04/15/2022 1:20 PM EST Speech Language Pathology Facility/Department: [facility] CAR 2- [facility]PDOWN Initial Speech/Language/Cognitive Assessment NAME: [...] [facility] from standing height while walking her dog. No LOC. Pt found to have small L parietal SDH on CT while at [facility]. CT face and c-spine were negative. Pt [...] recommended. Verbal education provided. Recommendations: Recommendations Requires POCKET MARKER Intervention: No Patient Education: Yes Patient Education Response: Verbalizes understanding Plan: Individuals consulted Consulted and agree with results and recommendations: Patient Goals: Patient/family involved in developing goals and treatment plan: Yes Subjective: Social/Functional History Lives With: Spouse Type of Home: House Active Electrician Chief: Yes Mode of Transportation: Car Vision Vision: [...] 11:55 Minutes 13 Completed by: Rekha Carrillo Family Member Caretaker Clinician Cosigned By: Nargis Fernandez M.S.CCC/POCKET MARKER * Mehreen Bradshaw, PT - 04/15/2022 11:55 AM EST Physical Therapy Facility/Department: [facility] CAR [facility]- [facility] Physical Therapy Initial Assessment Name: Ayana Alves : 1940 Date of Service: 04/15/2022 82 y/o trauma transfer from [facility], mechanical fall SH, on Plavix, outside hospital [...] ambulate 200' no device, steadily. She can bilingual legal assistant unilateral stance for at least 10 seconds. 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 She reports xrays at [place] showed no broken bones. Objective: Patient Vitals [...] 7:54 PM EST SPIRITUAL CARE DEPARTMENT - [facility] Emergency/Trauma Note PATIENT NAME: Ayana Alves Shift date: 04/14/22 Shift day: Friday Shift # 2 Room # / Name: Ayana Alves Age: 82 y.o. Gender: female Rastafarian: Synagogue Place of bahai: [facility] Trauma/Incident type: Adult Trauma Priority Admit Date & Time: 04/14/2022 6:56 PM TRAUMA NAME: Jerson ADVANCE DIRECTIVES IN CHART? No NAME OF DECISION MAKER: Bryan Alves, spouse or Kiya, daughter PATIENT/EVENT DESCRIPTION: Ayana Alves is a 82 y.o. female who arrived via [facility] as an Adult Trauma Priority; patientsustained injuries from a fall. Pt to be admitted to 16/. SPIRITUAL [id number]: Aviation Safety Equipment Technician provided a ministry of presence and made space for sharing. Aviation Safety Equipment Technician learned that patient receives support and comfort from her family and her yossi. Patient shared she belongs to [employer] in [place] and has a large bible study group praying forher. Patient shared that her , Bryan, has early Alzheimer's and is home resting. Patient appeared to be calm and seemed to be coping well. Aviation Safety Equipment Technician connected patient's daughter, Kiya, with patient in ED16 (patient was originally in Trauma B), and extended hospitality. Patient and patient's daughter expressed gratitude for business technology architect presence. PATIENT BELONGINGS: With patient ANY BELONGINGS OF SIGNIFICANT VALUE NOTED: Not noted or handled by business technology architect REGISTRATION STAFF NOTIFIED? Yes WHAT IS YOUR SPIRITUAL CARE PLAN FOR THIS PATIENT?: Aviation Safety Equipment Technician support will continue to be available as needed. 04/14/221952 Encounter Summary Service Provided For: Patient;Family Referral/Consult From: Multi-disciplinary team Support System Children;Spouse;Worship/yossi community Last Encounter 04/14/22 Complexity of Encounter Low Begin Time 1858 End Time 1957 Total Time Calculated 60 min Crisis Type Trauma Assessment/Intervention/Outcome Assessment Calm;Coping Intervention Active listening;Sustaining Presence/Ministry of presence Outcome Comfort;Expressed Gratitude Plan and Referrals Plan/Referrals Continue Support (comment) . Spiritual Care Department [facility] [phone] [facility] Work Phone: 1(370) 152-579711-07-2022 Hospital Discharge instructions* Discharge Instructions* Tiffanie Peck [...] the [facility] at [phone]. This center offers additional therapy, support groups, education and other resources at no cost. The center is located at [address] [place] [address]. You can also visit www.[facility].org for more information. General questions or concerns may be called to the trauma nurse line at [phone] and please leave a message. Trauma is a life-threatening condition. Your doctor will want to closely monitor you. Be sure to goto all of your appointments. * Discharge Instr - Activity* Rosario Thomas RN - 04/15/2022 3:23 PM EST As tolerated. * Attachments The following attachments cannot be sent through Care Everywhere. * Acute Concussion (Macedonian) * Head Injury: Closed: General Info (Macedonian) [facility] Work Phone: 1(902) 307-637508-09-2022 NoteThis is a Telehealth Appointment *This visit [...] a normal screening. Patient was referred to [facility] by PCP on 05/03/2020 due to [...] melena. Patient is followed by Jayant Vasques; network specialist, anticoagulated with Plavix. Review of Systems Constitutional: [...] PA-C Electronically Signed by (more content not included)...[facility] above: Order Comment: [id number] Miscellaneous Notes* Telephone Encounter - Haven Gr RN - 11/26/2021 2:11 PM EDT -Pt Verified by Name and Date of -pt calling to ask if there is an age limit for colonoscopies. Pt PCP not with [facility]. -advised discuss with PCP and seek referral for ANNE eval. [facility] note* Encounter Date Diagnosis Assessment [...] in office today. Prior medical notes from [facility] ED and history have been reviewed. At [...] as documented in the electronic medical record. [facility] Other Evaluation note* Diagnosis Subdural hematoma- Primary Subdural hemorrhage Subdural hematoma Subdural hemorrhage documented in this encounter [facility] Work Phone: evaluation noteNo InformationNort [facility] Other Evaluation noteNo assessment information available [facility] Work Phone: Evaluation note* Diagnosis Dermatophytosis of nail- Primary Dystrophic nail Other specified disease of nail Pain around toenail documented in this encounter [facility] HealthcareEvaluation note* Diagnosis Onset Date Resolution Status Acute left ankle pain acute [facility] Work Phone: Evaluation note* Diagnosis 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 [facility] Diagnosis Pulmonary hypertension, unspecified (CMS-HCC)- Primary Paroxysmal atrial fibrillation (CMS-HCC) Atrial fibrillation Hyperparathyroidism (CMS-HCC) Hyperparathyroidism, unspecified SSS (sick sinus syndrome) ([facility] Sinoatrial node dysfunction Pacemaker Cardiac pacemaker in situ [facility] Diagnosis Anxiety- Primary Anxiety state, unspecified [facility] Diagnosis Postprocedural hypothyroidism- Primary Postsurgical hypothyroidism Vitamin D deficiency Senile osteoporosis [facility]* Diagnosis Osteopenia, unspecified location- Primary [facility]* Diagnosis Anxiety Anxiety state, unspecified [facility]* Diagnosis Dermatophytosis of nail- Primary Dystrophic nail Other specified disease of nail Pain of right great toe [facility] Diagnosis Obstructive airway disease ([facility])- Primary Chronic airway obstruction, not elsewhere classified [facility]* Diagnosis Anxiety Anxiety state, unspecified [facility]* Diagnosis Osteopenia, unspecified location- Primary [facility]* Diagnosis Obstructive airway disease ([facility]) Chronic airway obstruction, not elsewhere classified [facility] - Reported* Type Description Date Surgical History bones in feet shaved Surgical History pins left wrist Surgical History cage in back 2011 Surgical History open heart surgery 2020 Surgical History pacemaker 2020 [facility] Other Hisabtd general Narrative - Reported* Type Description Date Surgical History bones in feet shaved Surgical History pins left wrist Surgical History cage in back 2011 Surgical History open heart surgery 2020 Surgical History pacemaker 2020 Hospitalization History fall- [facility] d/t c oncussion 04/13/2022 [facility] Other History general Narrative - Reported* Type [...] fall- [facility] d/t c oncussion 04/13/2022 [facility] Other InstructionsNot on filedocumented in this encounter [facility] filedocumented in this encounter [facility] on filedocumented in this encounter [facility] on filedocumented in this encounter [facility]Not on filedocumented in this encounter [facility]Not on filedocumented in this encounter [facility]Not on filedocumented in this encounter [facility] Summary Purpose Family History Relationship Condition Age at Onset Recorded Date/T jacki father Unknown Not Specified Unknown Relationship Condition Age at Onset Recorded Date/T jacki father Unknown mother Unknown Advance Directives Latest Code Status on File Code Status Date Activated Date Inactivated Comments Full Code 04/14/2022 8:43 PM Healthcare Agents on File Name Relationship Healthcare Agent Relationshi p Communication Kiya Landy Child Primary Decision Maker Advance Directive Response Recorded Date/ Time Advance Directives No February 12:26pm Date Activated Date Inactivated Comments 11/04/2018 3:48 AM 11/05/2018 4:08 PM Date Activated Date Inactivated Comments 10/30/2018 12:43 PM 11/03/2018 7:11 PM Advance Directive Response Recorded Date/ Time Advance Directives No April 9:29am Chief Complaint and Reason for Visit Chief Complaint Epigastric Pain Chronic Pain Amb Documentation discuss DNR Chief Complaint left ankle pain, swe lling, fell Reason for Visit Acute left ankle maurice n Chief Complaint Admit Date left ankle pain, swelling, fell Septembe r 2023 10:25am cough, swollen glands, covid neg Novembe r 2023 2:29pm Reason for Visit Admit Date Acute left ankle pain February 23 10:25am Viral URI April 26, 2024 2:29pm Additional Source Comments INFORMATION SOURCE (unrecogn ized section and content) DATE CREATED AUTHOR 03/16/2020 [facility] DATE CREATED AUTHOR AUTHOR'S ORGANIZ ATION 11/28/2021 [facility] DATE CREATED AUTHOR AUTHOR'S ORGANIZ ATION 01/15/2022 [facility] DATE CREATED AUTHOR AUTHOR'S ORGANIZ ATION 04/14/2022 [facility] DATE CREATED AUTHOR AUTHOR'S ORGANIZ ATION 04/16/2022 [facility] DATE CREATED AUTHOR AUTHOR'S ORGANIZ ATION 04/20/2022 [facility] DATE CREATED AUTHOR AUTHOR'S ORGANIZ ATION 04/26/2022 [facility] DATE CREATED AUTHOR AUTHOR'S ORGANIZ ATION 08/26/2022 [facility] DATE CREATED AUTHOR AUTHOR'S ORGANIZ ATION 09/26/2022 [facility] DATE CREATED AUTHOR AUTHOR'S ORGANIZ ATION 07/28/2024 [facility] DATE CREATED AUTHOR AUTHOR'S ORGANIZ ATION 09/27/2024 [facility] DATE CREATED AUTHOR AUTHOR'S ORGANIZ ATION 11/03/2024 [facility] dical [facility] EPIC DATE CREATED AUTHOR AUTHOR'S ORGANIZ ATION 11/28/2024 [facility] Source Comments (unrecognize d section and content) In the event this informatio n is protected by the Federal Confidentiality of Alcohol and Drug Abuse Patient Records regulations: The Federal rules restrict any use of the information to criminally investigate or prosecute any alcohol or drug abuse patient.[facility] Reason for Visit (unrecogniz ed section and content) Reason Comments colonoscopy questions Reason Comments Fall No LOC, tripped walk ing dog, on Plavix, SDH no midline shift per report. Neuro intact Reason Comments Fungus Established pt prese nts today for lamisil fuv. Pt states nail appearance has improved. Using vinegar topically. Reason Onset Date Comments 06/08/24 LOOMUS RESCHEDULE 04/20/2024 Reason Comments Med Refill Reason Comments Establish Care Hip Pain Left hip Reason Onset Date Comments Med Refill 08/25/2024 Reason Comments Osteoporosis Reason Comments Nail care Ayana Alves is a 83 y.o. female who presents for Lamisil FUV. Patient continues vinegar daily. Reason Onset Date Comments Med Refill 11/08/2024 Reason Comments Outpatient Infusion Reclast Specialty Diagnoses / Procedures Referred By Marcelle taveras Referred To Contact Diagnoses Osteopenia, unspecified location Procedures AK ZOLEDRONIC ACID 1MG Deepika Garcia MD [address] [place] [address] Phone: tel: fax: Deepika Garcia MD [address] [place] [address] Phone: tel: fax: Referral ID Status Reason Start Date Expiration Date Visits Re quested Visits Authorized [id number] Closed 09/30/2024 09/30/2025 1 1 Reason Onset Date Comments Med Refill 01/04/2025 Reason Onset Date Comments Med Refill 01/19/2025 Care Teams (unrecognized sec tion and content) Team Status: Active Member Role Status Dates Jessica Maxwell MD Primary Care Provider Active Team Status: Inactive Member Role Status Dates Jessica Maxwell MD Primary Care Provide r, Attending Provider Active Start: February 24, 2024 End: February 24, 2024 Team Status: Active Member Role Status Dates Jessica Maxwell MD Primary Care Provide r, Attending Provider Active Start: April 08, 2024 Team Status: Inactive Member Role Status Dates Jessica Maxwell MD Primary Care Provider Active Start: April 26, 2024 End: April 26, 2024 Veronica Menjivar APRN BOAT REPAIRER-C Attending Provider Active Start: April End: April 26, 2024 Team Status: Active Member Role Status Dates Jessica Maxwell MD Primary Care Provide r, Attending Provider Active Start: November 26, 2023 Coat Ironer Hand Relationship Specialty Start Date End Date Jessica Maxwell MD [address] [place] [address] PCP - General Family Practice 03/30/14 Jayant Ambrocio [address] [place] [address] Cardiology 11/18/19 Coat Ironer Hand Relationship Specialty Start Date End Date Jessica Maxwell MD [address] [facility] [place] [phone] PCP - General Family Medicine 04/14/22 Team Status: Inactive Member Role Status Dates Jeb Salas DO Attending Provider Active Coat Ironer Hand Relationship Specialty Start Date End Date David Arellano DO [address] [place] [address] PCP - General Family Medicine 03/27/23 Coat Ironer Hand Relationship Specialty Start Date End Date David Arellano DO [address] [place] [address] PCP - General Family Medicine 03/27/23 Team Status: Inactive Member Role Status Dates [...] September 18, 2023 End: September 18, 2023 Coat Ironer Hand Relationship Specialty [place] [address] [place] [address] [id number] PCP - General 02/21/17 Coat Ironer Hand Relationship Specialty [place] [address] [place] [address] [id number] PCP - General 02/21/17 Coat Ironer Hand Relationship Specialty Start Date End Date Halima Hooks MD [address] [place] [address] PCP - General Internal Medicine 07/27/24 Coat Ironer Hand Relationship Specialty Start Date End Date Halima Hooks MD [address], [place] [address] PCP - General Internal Medicine 07/27/24 Coat Ironer Hand Relationship Specialty Start Date End Date Halima Hooks MD [address], [place] [address] PCP - General Internal Medicine 07/27/24 Coat Ironer Hand Relationship Specialty Start Date End Date Halima Hooks MD [address], [place] [address] PCP - General Internal Medicine 07/27/24 Coat Ironer Hand Relationship Specialty Start Date End Date Anthony Engle MD [address], [address] [place] [address] PCP - General Pediatrics 10/27/24 Coat Ironer Hand Relationship Specialty Start Date End Date Anthony Engle MD [address], [address] [place] [address] PCP - General Pediatrics 10/27/24 Coat Ironer Hand Relationship Specialty Start Date End Date Halima Hooks MD [address], [place] [address] PCP - General Internal Medicine 07/27/24 Coat Ironer Hand Relationship Specialty Start Date End Date Halima Hooks MD [address] [place] [address] PCP - General Internal Medicine 07/27/24 Coat Ironer Hand Relationship Specialty Start Date End Date Halima Hooks MD [address] [facility] [place] [address] PCP - General Internal Medicine 07/27/24 Coat Ironer Hand Relationship Specialty Start Date End Date Halima Hooks MD [address] [place] [address] PCP - General Internal Medicine 07/27/24 Ordered Prescriptions (unrec ognized section and content) [...] Aide Fong, DILAN)1541 (Given - Provider: Elaine Degroot, DILAN)2200 (Due) levothyroxine (SYNTHROID) tablet 50 [...] Reason: Patient/family refused - Comment: Bowel movement yesterday)947 (Not Given - Provider: Elaine Degroot RN [...] at 0013, Until Discontinued, Anxiety, facial tic 51 (Given - Provid er: Aide Fong RN) iopamidol (ISOVUE-370) 76 % injection 130 mL (COMPLETED) 130 mL, IntraVENous, IMG ONCE PRN, 1 dose, Starting on 04/14/22 at 1936, Until 04/14/22 at 193, Other 1936 (Given - Provider: Asia Gonzalez - Comment: [id number] 09/2024) ondansetron (ZOFRAN) injection 4 mg(Linked Group [...] BE BASED ON THE PRIMARY CLINICAL RECORDS. [employer] provides no warranty or guarantee of the accuracy or completeness of information in this document.
== END 2025-01-31 09:47 | disposition home or self-care (01) ==
LOC: RAD 09:46
PROVIDERS: PCP Family Medicine; Visit Provider Orthopaedic Surgery Orthopaedic Trauma
DX: M25.552 Pain in left hip (principal)
CPT/HCPCS: 73501

== ENCOUNTER 2025-02-16 14:22 | Outpatient (OUT) | payer MEDICARE, OTHER, SELFPAY ==
--- OUTSIDE RECORDS SUMMARY | 2025-02-02 13:00 | XMS_ITS | Encounter Summary ---
Author Organization [facility] Address [address] [place] [address] Care Team Providers Care Network Firewall Engineer Name Role Phone Anthony Engle MD Primary Care Provider Reason for Visit * Reason Comments Toenail Care Pt is here today req uesting nail careSS: 10 Encounter Details Date Type Department Care Team (Latest Contact Info) Description 02/02/2025 1:00 PM EDT Procedure Visit [facility] [address] [place] [address] Gelacio Nolasco, DPKeyla [address] [place], [place] [phone] Dermatophytosis of nail (Primary Dx); Dystrophic nail; Pain of right great toe Social History Tobacco Use Types Packs/Day Years [...] on file documented as of this encounter Last Filed Vital Signs Vital Sign Reading Time Taken Comments Blood Pressure - - Pulse - - Temperature - - Respiratory Rate - - Oxygen Saturation - - Inhaled Oxygen Concentration - - Weight 54.4 kg (120 lb) 02/02/2025 12:58 PM EDT Height 154.9 cm (5' 1 ) 02/02/2025 12:58 PM EDT Body Mass Index 22.67 02/02/2025 12:58 PM EDT documented in this encounter Patient Instructions * Patient Instructions* Gelacio Nolasco DPM - 02/02/2025 1:00 PM EDT Topical care measures as noted documented in this encounter Progress Notes * Gelacio Nolasco DPM - 02/02/2025 1:00 PM EDT Images from the original note were not included. Subjective Patient ID: Ayana Alves is a 84 y.o. female who presents for Toenail Care (Pt is here today requesting nail care/SS: 10). HPI Follow-up assessment: Onychodystrophy/mycosis primarily involving the great toes; notably worse on the right by history. Patient completed an initial 90 day course of oral terbinafine therapy June 2023, without adverse effects. The condition is again mildly symptomatic with shoe gear; identifying primarily the right great toe; noting pressure discomfort with footwear over the past several weeks or so. Denies bleeding or drainage. Reports good compliance with topical care measures. Notes improvement from baseline and is generally well satisfied with overall response and progress to date. Self care measures are difficult, ineffective and [...] great toe: Persistent 20-25% DSO deformity; with residual proximal spike of the central nail plate; toenail dystrophy, thickening, discoloration and crumbly texture of the distal nail plate with periungual mycotic debris; without drainage. Proximal nail plate clearing beyond the lunula area. Left great toe: Maintains effective nail plate [...] therapy completed in June of 2023. Plan: [place] agreement against any further oral terbinafine therapy at this time. Continue topical care measures: Formula 7 preceded by [...] or corrected. Thank you for your understanding. Gelacio Nolasco DPM documented in this encounter Plan of Treatment Upcoming Encounters Date Type Department Care Team (Late st Contact Info) Description 05/11/2025 2:15 PM EST Office Visit [facility] [address] [place] [address] Gelacio Nolasco DPM [address] [place], [place] [phone] documented as of this encounter Visit Diagnoses Diagnosis Dermatophytosis of nail- Primary Dystrophic nail Other specified disease of nail Pain of right great toe documented in this encounter Care Teams Network Firewall Engineer Relationship Specialty Start Date End Date Anthony Engle MD [address] [address] PCP - General Pediatrics 10/27/24 documented as of this encounter
--- OUTSIDE RECORDS SUMMARY | 2025-02-16 14:25 | XMS_ITS | Encounter Summary ---
Author Organization [employer] Address [id number] [address] [place] [address] Care Team Providers Care Manager Exchange Name Role Phone Amrita Hooks MD Primary Care Provider [phone] Encounter Details Date Type Department Care Team (Late st Contact Info) Description 02/04/2024 Orders Only [facility] [address] [place] [address] Veronica Pineda CMA Paroxysmal atrial fibrillation ([facility]); SSS (sick sinus syndrome) ([facility]); Presence of cardiac pacemaker; Valvular heart disease; Essential hypertension Social History Tobacco Use Types Packs/Day Years Used Date Smoking Tobacco: Former Cigarettes 1 7 1 326 - 0196 Smokeless Tobacco: Never Alcohol Use Standard Drinks/Week [...] Care Team (Late st Contact Info) Description 03/17/2025 9:30 AM EDT Office Visit [facility] [address] [place] [address] [address] [place] [address] [employer] Jero Jonathan, DO [address] [place], [address] [place], [place] [phone] 05/02/2025 11:30 AM EST Office Visit [facility], A Department of [facility] [address] [address] Wilmer Doe MD [address] [address] documented as of this encounter Goals Goal Patient Goal Type Associated Problems Recent Progress Patient-Stated? Author d/c home General Yes Cathy Vu, DILAN Note: Evaluation of progress towards goal: plan is home with home health documented as of this encounter Procedures Procedure Name Priority Date/Time Associated Diagnosis Comments DEVICE INTERROGATION Routine 02/04/2024 Paroxysmal atrial fibrillation ([facility]) SSS (sick sinus syndrome) ([facility]) Presence of cardiac pacemaker Valvular heart disease Essential hypertension documented in this encounter Results * Device Interrogation (02/04/2024) Anatomical Region Laterality Modality Other 02/04/2024 us Emiliano Go MD CV CARDIAC SERVICES ORDERABLE S Final Result documented in this encounter Visit Diagnoses Diagnosis Paroxysmal atrial fibrillation ([facility]) Atrial fibrillation SSS (sick sinus syndrome) ([facility]) Sinoatrial node dysfunction 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
--- OUTSIDE RECORDS SUMMARY | 2025-02-16 14:25 | XMS_ITS | Encounter Summary ---
Author Organization [facility] tem Address [id number] [address] [place] [address] Care Team Providers Care Sketch Artist Name Role Phone Amrita Hooks MD Primary Care Provider [phone] Reason for Visit * Reason Onset Date Comments EEG 10/11/2024 Labs Only 10/11/2024 Encounter Details Date Type Department Care Team (Late st Contact Info) Description 10/11/2024 Telephone [facility], A Department of [facility] [address] [facility] [address] [place] [address] Elizabeth Billings EEG; Labs Only Social History Tobacco Use Types Packs/Day Years Used Date Smoking Tobacco: Former Cigarettes 1 7 1 956 - 1888 Smokeless Tobacco: Never Alcohol Use Standard Drinks/Week [...] Description 03/17/2025 9:30 AM EDT Office Visit [facility] [address] [place] [address] [place] [phone] Jero Hitchcock, [address] [facility] [address] [place] [address] 05/02/2025 11:30 AM EST Office Visit [facility]rology, A Department of [facility] [address] [address] Wilmer Doe MD [address] [address] documented as of this [...] documented as of this encounter Care Teams Sketch Artist Relationship Specialty Start Date End Date Amrita Hooks MD [address] [facility], [place] [address] PCP - General Internal Medicine 07/27/24 documented as of this encounter
--- OUTSIDE RECORDS SUMMARY | 2025-02-16 14:25 | XMS_ITS | Encounter Summary ---
Author Organization [employer] Address [id number] [address] [place] [address] Care Team Providers Care Manager Energy Name Role Phone Amrita Hokos MD Primary Care Provider [phone] Encounter Details Date Type Department Care Team (Late Contact Info) Description 11/05/2022 Orders Only [facility] [address] [place] [address] Megha Curtis CMA Presence of cardiac pacemaker Social History Tobacco Use Types Packs/Day Years Used Date Smoking Tobacco: Former Cigarettes 1 7 1 096 - 0705 Smokeless Tobacco: Never Alcohol Use Standard Drinks/Week [...] Department Care Team (Late Contact Info) Description 03/17/2025 9:30 AM EDT Office Visit [facility] [address] [place] [address] [address] Jero Hitchcock, [address] [place], [address] [place], [place] [phone] 05/02/2025 11:30 AM EST Office Visit [facility], A Department of [facility] [address] [address] Wilmer Doe MD [address] [address] documented as of this encounter [...] EDT) Anatomical Region Laterality Modality Other Brinda aHrp APRN-SUPERVISOR [employer] CV CARDIAC SERV ICES ORDERABLES Final Result documented in this encounter Visit Diagnoses Diagnosis Presence of cardiac pacemaker Cardiac pacemaker in situ documented in this encounter Additional Health Concerns Assessment Noted Time PHQ-9 Depression Total Score: 0 10/19/19 22 1:00 PM EDT documented as of this encounter Care Teams Manager Energy Relationship Specialty Start Date End Date Amrita Hooks MD [address] [facility] [place] [address] PCP - General Internal Medicine 07/27/24 documented as of this encounter
--- OUTSIDE RECORDS SUMMARY | 2025-02-16 14:25 | XMS_ITS | Encounter Summary ---
Author Organization [facility] Address [address] [place] [address] Care Team Providers Care Group Sales Coordinator Name Role Phone Anthony Engle MD Primary Care Provider Encounter Details Date Type Department Care Team (Latest Contact Info) Description 02/02/2025 Travel Social History Tobacco Use Types Packs/Day Years [...] PM EST Office Visit [facility] [address] [place] [phone] Gelacio Nolasco DPM [address] [place], [place] [phone] documented as of this encounter Visit Diagnoses Not on filedocumented in this encounter Care Teams Group Sales Coordinator Relationship Specialty Start Date End Date Anthony Engle MD [address] [facility] [place] [address] PCP - General Pediatrics 10/27/24 documented as of this encounter
--- OUTSIDE RECORDS SUMMARY | 2025-02-16 14:25 | XMS_ITS | Encounter Summary ---
Author Organization [facility] Address [address] [place] [address] Care Team Providers Care Care Giver Name Role Phone David Arellano DO Primary Care Provider [phone] Unallocated, [facility] Provider Primary Care Provi robin Anthony Engle MD Primary Care Provider Encounter Details Date Type Department Care Team (Late Contact Info) Description 04/02/2023 Abstract [facility] [address] [place] [phone] Gelacio Nolasco DPM [address] [place], [place] [phone] Social History Tobacco Use Types Packs/Day Years [...] Department Care Team (Late Contact Info) Description 05/11/2025 2:15 PM EST Office Visit [facility] [address] [place] [phone] Gelacio Nolasco DPM [address] [facility] [place] [address] documented as of this encounter Visit Diagnoses Not on filedocumented in this encounter Care Teams Care Giver Relationship Specialty Start Date End Date David Arellano DO [address] [facility] [address] [place] [address] PCP - General Family Medicine 03/27/23 08/26/23 Unallocated, Tamara Rodas MD [address] [place] [address] PCP - General Family Medicine 08/27/23 10/26/24 Anthony Engle MD [address] [phone] PCP - General Pediatrics 10/27/24 documented as of this encounter
--- OUTSIDE RECORDS SUMMARY | 2025-02-16 14:25 | XMS_ITS | Encounter Summary ---
Author Organization [facility] Address [address] [place] [address] Care Team Providers Care Securities Settlement Processor Name Role Phone David Arellano DO Primary Care Provider [phone] Unallocated, Noms Provider Primary Care Provi robin Anthony Engle MD Primary Care Provider Reason for Visit * Reason Comments Med Refill Encounter Details Date Type Department Care Team (Late Contact Info) Description 08/22/2023 Refill [facility] [address] [place] [address] Gelacio Nolasco, DPKeyla [address] [place], [place] [phone] Dermatophytosis of nail; Dystrophic nail Social History [...] EST Office Visit [facility] [address] [facility] [place] [address] Gelacio Nolasco, KATTY [address] [place] [address] documented as of this encounter Visit Diagnoses Diagnosis Dermatophytosis of nail Dystrophic nail Other specified disease of nail documented in this encounter Care Teams Securities Settlement Processor Relationship Specialty Start Date End Date David Arellano DO [address] [place] [address] PCP - General Family Medicine 03/27/23 08/26/23 Unallocated, Noms Provider, [address] [place] [address] PCP - General Family Medicine 08/27/23 10/26/24 Anthony Engle MD [address] [address] PCP - General Pediatrics 10/27/24 documented as of this encounter
--- OUTSIDE RECORDS SUMMARY | 2025-02-16 14:25 | XMS_ITS | Encounter Summary ---
Author Organization [facility] Address [address] [place] [address] Care Team Providers Care Glass Pulverizer Equipment Operator Name Role Phone Yasmin Ríos MD Primary Care Provider [phone] Kwesi Tilley MD, Uriel Sahu Unavailable Source Comments In the event this information is protected by the Federal Confidentiality of Alcohol and Drug AbusePatient Records regulations: The Federal rules restrict any use of the information to criminally investigate or prosecute any alcohol or drug abuse patient.[facility] Encounter Details Date Type Department Care Team [...] on filedocumented in this encounter Care Teams Glass Pulverizer Equipment Operator Relationship Specialty Start Date End Date Yasmin Ríos MD [address] [place] [address] PCP - General Family Medicine 03/30/14 Uriel Orosco Jr., MD [address] [place] [address] Cardiology 11/18/19 documented as of this encounter
--- OUTSIDE RECORDS SUMMARY | 2025-02-16 14:25 | XMS_ITS | Encounter Summary ---
Author Organization [facility] Address [address] [place] [address] Care Team Providers Care Break And Load Operator Name Role Phone David Arellano DO Primary Care Provider [phone] Unallocated, Noms Provider Primary Care Provi robin Anthony Engle MD Primary Care Provider Encounter Details Date Type Department Care Team (Late Contact Info) Description 03/26/2023 Abstract [facility] [address] [place] [phone] Gelacio Nolasco DPM [address] [place], [place] [phone] Social History Tobacco Use Types Packs/Day Years [...] 05/11/2025 2:15 PM EST Office Visit [facility] [address] [place] [phone] Gelacio Nolasco DPM [address] [place] [address] documented as of this encounter Visit Diagnoses Not on filedocumented in this encounter Care Teams Break And Load Operator Relationship Specialty Start Date End Date David Arellano DO [address] [facility] [address] [place] [address] PCP - General Family Medicine 03/27/23 08/26/23 Unallocated, Tamara Rodas MD [address] [place] [address] PCP - General Family Medicine 08/27/23 10/26/24 Anthony Engle MD [address] [id number] PCP - General Pediatrics 10/27/24 documented as of this encounter
--- OUTSIDE RECORDS SUMMARY | 2025-02-16 14:25 | XMS_ITS | Patient Health Record ---
Author Organization [facility] Address [address] [place] [id number] Care Team Providers Care Key Holder Name Role Phone Yasmin Ríos Primary Care Provider Veronica Nolen Unavailable [phone] Junior Duncan Unavailable Unavailable Allergies Allergen (clinical [...] Problem Status W/U Status Risk Notes Problem Diarrhea (01698940) Diarrhea, unspecified type (R19.7) Active confirmed Plan Of Treatment No Information Insurance Providers Payer Name Payer Address Payer Phone Subscriber Number Group Number Insured Name Patient Relationship to Insured Coverage Start Date Coverage End Date [place] [address] [place] [address] [phone] [id number] Ayana Alves Self - patient is the insured Aminata [address] [address] [place] [id number] Ayana Alves Self - patient is the insured Medical (General) History Medical History History ICD Code hypertension Surgical History Surgery Date(Month/Year) tonsillectomy thyroidectomy, subtotal cataract extraction, bilateral back surgery colonoscopy (06/2016, 09/2009, 07/2004, ) EGD (06/2016)
--- OUTSIDE RECORDS SUMMARY | 2025-02-16 14:25 | XMS_ITS | Encounter Summary ---
Author Organization [employer] Address [id number] [address] [place] [address] Care Team Providers Care User Experience Architect Name Role Phone Amrita Hooks MD Primary Care Provider [phone] Encounter Details Date Type Department Care Team (Late st Contact Info) Description 07/08/2019 Telephone [facility] [address] [place] [phone] Eden Yancey, ELECTRICAL WIRING LINEMAN-ELECTRONICS TEST ENGINEER Social History Tobacco Use Types Packs/Day Years Used Date Smoking Tobacco: Former Cigarettes 1 7 1 966 - 0653 Smokeless Tobacco: Never Alcohol Use Standard Drinks/Week [...] Description 03/17/2025 9:30 AM EDT Office Visit [facility] [address] [place] [address] [place] [address] Jero Hitchcock, 605 [facility], [address], [place] [address] 05/02/2025 11:30 AM EST Office Visit [facility] Department of [facility] [address] [address] Wilmer Doe MD [address] [address] documented as of this encounter [...] documented as of this encounter Care Teams User Experience Architect Relationship Specialty Start Date End Date Amrita Hooks MD 605 [facility] [place] [address] PCP - General Internal Medicine 07/27/24 documented as of this encounter
--- OUTSIDE RECORDS SUMMARY | 2025-02-16 14:25 | XMS_ITS | Clinical Summary ---
Author Organization [employer] Address [id number] [address] [place] [address] Care Team Providers Care Steel Heater Name Role Phone Amrita Hooks MD Primary Care Provider Allergies Active Allergy [...] DAY IN THE MORNING 90 tablet 3 024 Active liothyronine (CYTOMEL) 5 MCG tabletIndications :Postprocedural hypothyroidism,Po stoperative hypothyroidism TAKE 1 TABLET BY MOUTH EVERY DAY ON AN EMPTY STOMACH 90 tablet 3 025 Active levothyroxine (SYNTHROID, LEVOTHROID) 50 MCG tabletIndications :Postprocedural hypothyroidism,Po stoperative hypothyroidism TAKE 1 TABLET BY MOUTH EVERY DAY IN THE MORNING ON EMPTY STOMACH FOR 90 DAYS 90 tablet 3 025 Active clopidogreL (PLAVIX) 75 mg tablet TAKE 1 TABLET BY MOUTH EVERY DAY 90 tablet 1 025 Active ipratropium (ATROVENT) 42 mcg (0.06 %) nasal sprayIndications: Obstructive airway disease (CMS-HCC) Administer 1 spray into each nostril in the morning. 15 mL 3 025 Active hydrocortisone (ANUSOL-HC) 2.5 % rectal cream Insert 1 Application into the rectum in the morning and 1 Application before bedtime. 30 g 1 025 Active clonazePAM (KlonoPIN) 0.5 mg tabletIndications :Anxiety TAKE 1 TABLET (0.5 MG TOTAL) BY MOUTH 2 (TWO) TIMES A DAY NEEDED FOR ANXIETY. 60 tablet 025 Active ipratropium (ATROVENT) 42 mcg (0.06 %) nasal sprayIndications: Obstructive airway disease ([facility]) Administer 1 spray into each nostril in the morning. 15 mL 3 025 2024 Discontinued(R eorder) clonazePAM (KlonoPIN) 0.5 mg tabletIndications :Anxiety Take 1 tablet (0.5 mg total) by mouth 2 (two) times a day as needed for anxiety. 60 tablet 025 2024 Discontinued hydrocortisone (ANUSOL-HC) 2.5 % rectal cream Insert 1 Application into the rectum in the morning and 1 Application before bedtime. 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 Tardive dyskinesia 11/27/2020 Cerebrovascular disease 11/27/2020 Other fatigue 04/18/2020 Abnormal involuntary movements 01/05/2020 TIA (transient ischemic attack) 01/08/2019 Sinus node dysfunction 11/16/2018 Presence of cardiac pacemaker- MDT 11/16/2018 Encounter for postoperative wound check 11/17/19 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 2018 Symptomatic bradycardia [...] Encounters Date Type Department Care Team Description 02/12/2025 Refill [facility] [address] [place] [phone] Amrita Hooks MD Anxiety 01/19/2025 Refill [facility] [address] [place] [phone] Meeta Gonzales CNA Obstructive airway disease ([facility]) 01/04/2025 Refill [facility] [address] [place] [phone] Meeta Gonzales CNA Anxiety 11/26/2024 2:30 PM EDT Infusion [facility] On[facility] [address] [place] [phone] Osteopenia, unspecified location (Primary Dx) 11/25/2024 Travel 11/22/2024 Orders Only [facility] Medicine [address] [place] [phone] Kallie Bright, ACCOUNT FINANCIAL MANAGER-MANAGER TARGET 11/21/2024 Refill [facility] [address] [phone] Amrita Hooks MD Anxiety from Last 3 Months Immunizations No known [...] Office Visit [facility] [address] [place] [address] [place] [address] Jero Hitchcock, 605 [facility], [address], [place] [address] 05/02/2025 11:30 AM EST Office Visit [facility], A Department of [place] [address] [address] Wilmer Doe MD [address] [address] Health Maintenance Due Date Last Done [...] home health Medical Devices Implanted Type Area Billing Spec Device Identifier Shelf Expiration Date Model / Serial / Lot Ring Annuloplasty 28mm - [id number] - [id number] Implanted:Qty: 1 on 10/30/2018 by Jero Lima MD at [facility] Annuloplasty Ring N/A: Heart Mitral Valve [employer] [facility] 12/11/2022 [id number] / [id number] / Ring Annuloplast Contour 3d 26 - [id number] - [id number] Implanted:Qty: 1 on 10/30/2018 by Jero Lima MD at [facility] Annuloplasty Ring N/A: Heart Tricuspid Valve [employer] [facility] 05/26/2023 [id number] / [id number] / Lead Capsure Fix Novus 5076-52 - [id number] - [id number] Implanted:Qty: 1 on 11/04/2018 by Lori Yo MD at [facility] Implant Lead Left: Chest [employer] [facility] 08/31/2020 5076-52 / [id number] / Lead Capsure Fix Novus 5076-45 - [id number] - [id number] Implanted:Qty: 1 on 11/04/2018 by Lori Yo MD at [facility] Implant Lead Left: Arterial [employer] [facility] 09/01/2020 5076-45 / [id number] / [facility] Meghan Dubon - [id number] - [id number] Implanted:Qty: 1 on 11/04/2018 by Lori Yo MD at [facility] Pacemaker Left: Arterial [employer] 04/05/2020 [id number] / [id number] / Procedures Procedure Name Priority Date/Time Associated Diagnosis Comments IL REM INTERROG PM/LDLS PM <90 D PHYS/QHP [...] - 100.0 ng/mL 11/25/2024 6:47 PM EDT [facility] Blood Venipuncture / Unknown 11/25/2024 1:13 PM EDT 11/25/2024 1:13 PM EDT Narrative [facility] - 11/25/2024 6:47 PM EDT Vitamin D status 25 [place] Vitamin D Deficiency <20 ng/mL Insufficiency 20-29 ng/mL Sufficiency 30-100 ng/mL Toxicity >100 ng/mL NOTE: A pediatric reference range has not been established by the director medical science of this kit. The [place] [employer] recommends a Vitamin D level of = or >20ng/mL in infants and children. Deepika Najera MD LAB BLOOD ORDERABLES Final Resul t Performing Organization Address City/[facility]/ZIP Co de Phone Number [facility] [address] [place] [address], * Creatinine, serum (11/25/2024 1:13 PM EDT) CREATININE 0.81 0.40 - 1.00 mg/dL 11/25/2024 6:27 PM EDT [facility] Comment:METHOD TRACEABLE TO IDVT STANDARD EGFR Non-Race Dependent 72 >=60 ml/min/1.7 3sq.m 11/25/2024 6:27 PM EDT [facility] Comment: Reported eGFR is based on the CKD-EPI 2020 equation that does not use a race coefficient. Blood Venipuncture / Unknown 11/25/2024 1:13 PM EDT 11/25/2024 1:13 PM EDT Deepika Najera MD LAB BLOOD ORDERABLES Final Resul t Performing Organization Address City/[facility]/ZIP Co de Phone Number [facility] [address] [place] [address], * Calcium (11/25/2024 1:13 PM EDT) CALCIUM 10.4 8.5 - 10.5 mg/dL 11/25/2024 6:27 PM EDT [facility] Blood Venipuncture / Unknown 11/25/2024 1:13 PM EDT 11/25/2024 1:13 PM EDT us Deepika Najera MD LAB BLOOD ORDERABLES Final Resul t [facility] [address] [place] [address], [place] [phone] from Last 3 Months Insurance MEDICARE [employer] Advance Directives * Full Code (Latest Code Status on File) Date Activated Date Inactivated Comments 11/04/2018 3:48 AM 11/05/2018 4:08 PM * Full Code Date Activated Date Inactivated Comments 10/30/2018 12:43 PM 11/03/2018 7:11 PM Care Teams Steel Heater Relationship Specialty Start Date End Date Amrita Hooks MD [address] [place] [address] PCP - General Internal Medicine 07/27/24
--- OUTSIDE RECORDS SUMMARY | 2025-02-16 14:25 | XMS_ITS | Clinical Summary ---
Author Organization [facility] Address [address] [facility], [address] [place] [address] Care Team Providers Care Costing Manager Name Role Phone Yasmin Ríos MD Primary Care Provider [phone] Allergies Active Allergy Reactions Criticality Noted Date [...] series) 02/23/2016 Annual Wellness Visit (Medicare) 05/05/2023 Flu vaccine (#1) 01/07/2025 COVID-19 Vaccine (1 - 2023-2 5 season) 2025 Hepatitis A vaccine Aged Out No longe [...] age to complete this topic Insurance [address] [place] [id number] [employer] MEDICARE [address] [place] [id number] Advance Directives * Full Code (Latest Code Status on File) Date Activated Date Inactivated Comments 04/14/2022 8:43 PM 04/15/2022 6:48 PM Healthcare Agents on File Name Relationship Healthcare Agent [facility] p Communication Kiya Bill Child Primary Decision Maker Care Teams Costing Manager Relationship Specialty Start Date End Date Yasmin Ríos MD [address] [place] [phone] PCP - General Family Medicine 04/14/22
--- OUTSIDE RECORDS SUMMARY | 2025-02-16 14:25 | XMS_ITS | Encounter Summary ---
Author Organization [facility] [facility] Address [id number] [address] [place] [address] Care Team Providers Care Pharmacy Technician Assistant Name Role Phone Amrita Hooks MD Primary Care Provider [phone] Encounter Details Date Type Department Care Team (Late Contact Info) Description 05/15/2022 Orders Only [facility] [address] [place] [address] External, Scanning Provider Social History Tobacco Use Types Packs/Day Years Used Date Smoking Tobacco: Former Cigarettes 1 7 1 716 - 1959 Smokeless Tobacco: Never Alcohol Use Standard Drinks/Week [...] Family Medicine [address] [place] [phone] RellJero duncan Jonathan, DO 605 [facility], [address], [place] [address] 05/02/2025 11:30 AM EST Office Visit [facility] Department of [facility] [address] [address] Wilmer Doe MD [address] [address] documented as of this encounter [...] documented as of this encounter Care Teams Pharmacy Technician Assistant Relationship Specialty Start Date End Date Amrita Hooks MD 605 [facility], [facility] [address] [place], [place] [phone] PCP - General Internal Medicine 07/27/24 documented as of this encounter
--- OUTSIDE RECORDS SUMMARY | 2025-02-16 14:25 | XMS_ITS | Encounter Summary ---
Author Organization [facility] Address [facility] [id number] [address] [place] [address] Care Team Providers Care Pile Driver Operator Name Role Phone Amrita Hooks MD Primary Care Provider [phone] Reason for Visit * Reason Onset Date Comments RA lead noise 02/04/2024 Encounter Details Date Type Department Care Team (Late st Contact Info) Description 02/04/2024 [facility] [address] [place] [address] Mattie Yang, RN RA lead [...] Med[employer]onic DC PPM - implanted 11/04/18 per [facility] In-Clinic device check completed. 26 AT/AF. Saved [...] Office Visit [facility] [address] [place] [address] [place] [address] Jero Hitchcock, 605 [facility], [address], [place] [address] 05/02/2025 11:30 AM EST Office Visit [facility] Department of [facility] [address] [address] Wilmer Doe MD [address] [address] documented as of this encounter Goals Goal [...] documented as of this encounter Care Teams Pile Driver Operator Relationship Specialty Start Date End Date Amrita Hooks MD [address] [place] [address] PCP - General Internal Medicine 07/27/24 documented as of this encounter
--- OUTSIDE RECORDS SUMMARY | 2025-02-16 14:25 | XMS_ITS | Clinical Summary ---
Author Organization [facility] Address [address] [place] [address] Care Team Providers Care Entry Level Management Name Role Phone Anthony Engle MD Primary [...] morning and 250 mg before bedtime. Active Encounters Date Type Department Care Team Description 02/02/2025 1:00 PM EDT Procedure Visit [facility] [address] [place] [phone] Gelacio Nolasco DPM Dermatophytosis of nail (Primary Dx); Dystrophic nail; Pain of right great toe 02/02/2025 Bamboo flowsheet [facility] [address] [place] [phone] Gelacio Nolasco DPM 02/02/2025 Travel 02/01/2025 Travel from Last 3 Months Family History Medical History Relation Name Comments [...] Mass Index 22.67 02/02/2025 12:58 PM EDT Plan of Treatment Upcoming Encounters Date Type Department Care Team (Late st Contact Info) Description 05/11/2025 2:15 PM EST Office Visit [facility] [address] [place] [phone] Gelacio Nolasco DPM [address] [place], [place] [phone] Health Maintenance Due Date Last Done Comments Pneumococcal Vaccine: 65+ Years (1 of 1 - PCV) 991 Influenza Vaccine (#1) 2025 Insurance [address] [place] [address] MEDICARE [place] [id number] MEDICAL [place] Care Teams Entry Level Management Relationship Specialty Start Date End Date Anthony Engle MD [address] [address] PCP - General Pediatrics 10/27/24
--- OUTSIDE RECORDS SUMMARY | 2025-02-16 14:25 | XMS_ITS | Encounter Summary ---
Author Organization [facility] Address [id number] [address] [place] [address] Care Team Providers Care Contact Lens Lathe Operator Name Role Phone Amrita Hooks MD Primary Care Provider [phone] Encounter Details Date Type Department Care Team (Late Contact Info) Description 08/08/2020 Orders Only [facility] [address] [place] [phone] External, Scanning Provider Social History Tobacco Use Types Packs/Day Years Used Date Smoking Tobacco: Former Cigarettes 1 7 1 486 - 9368 Smokeless Tobacco: Never Alcohol Use Standard Drinks/Week [...] Office Visit [facility] [address] [place] [address] [place] [phone] RellJero duncan, DO 605 [facility], [address], [place] [address] 05/02/2025 11:30 AM EST Office Visit [facility] Department of [facility] [address] [address] Wilmer Doe MD [address] [address] documented as of this encounter [...] documented as of this encounter Care Teams Contact Lens Lathe Operator Relationship Specialty Start Date End Date Amrita Hooks MD 605 [facility], [facility] [place] [address] PCP - General Internal Medicine 07/27/24 documented as of this encounter
--- OUTSIDE RECORDS SUMMARY | 2025-02-16 14:25 | XMS_ITS | Encounter Summary ---
Author Organization [facility] Address [address] [place] [address] Care Team Providers Care Senior Controller Name Role Phone David Arellano DO Primary Care Provider [phone] Unallocated, Noms Provider Primary Care Provi robin Anthony Engle MD Primary Care Provider Reason for Visit * Reason Comments Med Refill Encounter Details Date Type Department Care Team (Late Contact Info) Description 07/24/2023 Refill [facility] [address] [place] [phone] Gelacio Nolasco, DPKeyla [address] [place], [place] [phone] Dermatophytosis of nail; Dystrophic nail Social History [...] EST Office Visit [facility] [address] [facility] [place] [address] Gelacio Nolasco, KATTY [address] [place] [address] documented as of this encounter Visit Diagnoses Diagnosis Dermatophytosis of nail Dystrophic nail Other specified disease of nail documented in this encounter Care Teams Senior Controller Relationship Specialty Start Date End Date David Arellano DO [address] [place] [address] PCP - General Family Medicine 03/27/23 08/26/23 Unallocated, Noms Provider, [address] [place] [address] PCP - General Family Medicine 08/27/23 10/26/24 Anthony Engle MD [address] [address] PCP - General Pediatrics 10/27/24 documented as of this encounter
--- OUTSIDE RECORDS SUMMARY | 2025-02-16 14:25 | XMS_ITS | Encounter Summary ---
Author Organization [employer] Address [facility]-[id number] [address] [place] [address] Care Team Providers Care Tip Scourer Name Role Phone Amrita Hooks MD Primary Care Provider [phone] Reason for Visit * Reason Comments Med Refill Encounter Details Date Type Department Care Team (Late st Contact Info) Description 05/22/2021 Refill [facility] [address] [facility] [address] [place] [address] Wilmer Doe MD [address] [employer] [facility] [address] [place] [address] Social History Tobacco Use Types Packs/Day Years Used Date Smoking Tobacco: Former Cigarettes 1 7 1 956 - 6207 Smokeless Tobacco: Never Alcohol Use Standard Drinks/Week [...] Family Medicine [address] [place] [phone] Jero Hitchcock, DO [address], [address], [place] [address] 05/02/2025 11:30 AM EST Office Visit [facility], [facility] Department of [facility] [address] [address] Wilmer Doe MD 0217 [facility] [employer] [address] [address] documented as of this encounter [...] documented as of this encounter Care Teams Tip Scourer Relationship Specialty Start Date End Date Amrita Hooks MD [address] [place] [address] PCP - General Internal Medicine 07/27/24 documented as of this encounter
--- OUTSIDE RECORDS SUMMARY | 2025-02-16 14:25 | XMS_ITS | Encounter Summary ---
Author Organization [facility] Address [address] [place] [address] Care Team Providers Care Software Performance Engineer Name Role Phone Unallocated, Noms Provider Primary Care Provi robin Anthony Engle MD Primary Care Provider Reason for Visit * Reason Comments Med Refill Encounter Details Date Type Department Care Team (Late Contact Info) Description 02/13/2024 Refill [facility] [address] [place] [phone] Gelacio Nolasco, DPM [address] [place] [address] Dermatophytosis of nail; Dystrophic nail Social History [...] 2:15 PM EST Office Visit [facility] [address] [place] [phone] Gelacio Nolasco DPM [address] [facility] [place] [phone] documented as of this encounter Visit Diagnoses Diagnosis Dermatophytosis of nail Dystrophic nail Other specified disease of nail documented in this encounter Care Teams Software Performance Engineer Relationship Specialty Start Date End Date Unallocated, Noms Provider, [address] [place] [address] PCP - General Family Medicine 08/27/23 10/26/24 Anthony Engle MD [address] [address] PCP - General Pediatrics 10/27/24 documented as of this encounter
--- OUTSIDE RECORDS SUMMARY | 2025-02-16 14:25 | XMS_ITS | Encounter Summary ---
Author Organization [employer] Address [facility] [id number] [address] [place] [address] Care Team Providers Care And Taxi Instructor Bus Trolley Name Role Phone Amrita Hooks MD Primary Care Provider [phone] Reason for Visit * Reason Comments Med Refill Encounter Details Date Type Department Care Team (Late st Contact Info) Description 02/12/2025 Refill [facility] [address] [address] [place] [address] [place] [phone] Amrita Hooks MD [address], [place], [place] [id number] Anxiety Social History Tobacco Use Types Packs/Day Years Used Date Smoking Tobacco: Former Cigarettes 1 7 1 676 - 2694 Smokeless Tobacco: Never Alcohol Use Standard Drinks/Week [...] Visit [facility] [address] [place] [phone] Jero Hitchcock, [address], [address], [place] [address] 05/02/2025 11:30 AM EST Office Visit [facility] Neurology, A Department of [facility] [address] [address] Wilmer Doe MD [address] [address] documented as of this encounter Goals Goal Patient Goal Type Associated Problems Recent Progress Patient-Stated? Author d/c home General Yes Cathy Vu, RN Note: Evaluation of progress towards goal: plan is home with home health documented as of this encounter Visit Diagnoses Diagnosis Anxiety Anxiety state, unspecified documented in this encounter Additional Health Concerns Assessment Noted Time PHQ-9 Depression Total Score: 0 10/19/19 22 1:00 PM EDT documented as of this encounter Care Teams And Taxi Instructor Bus Trolley Relationship Specialty Start Date End Date Amrita Hooks MD [address] [place] [address] PCP - General Internal Medicine 07/27/24 documented as of this encounter
--- OUTSIDE RECORDS SUMMARY | 2025-02-16 14:25 | XMS_ITS | Encounter Summary ---
Author Organization [facility] Address [address] [place] [address] Care Team Providers Care Paint Supervisor Name Role Phone David Arellano DO Primary Care Provider Unallocated, Noms Provider Primary Care Provi robin Anthony Engle MD Primary Care Provider Reason for Visit * Reason Comments Med Refill Encounter Details Date Type Department Care Team (Late st Contact Info) Description 03/26/2023 Refill [facility] [address] [place] [address] Nargis Tsai MD [address] [facility] [address] [place] [address] Social History Tobacco Use Types [...] Office Visit [facility] [address] [place] [address] Gelacio Nolasco, KATTY [address] [place], [place] [phone] documented as of this encounter Visit Diagnoses Not on filedocumented in this encounter Care Teams Paint Supervisor Relationship Specialty Start Date End Date David Arellano DO [address] [facility] [address] [place] [address] PCP - General Family Medicine 03/27/23 08/26/23 Unallocated, Noms Provider, [address] [place] [place] [address] PCP - General Family Medicine 08/27/23 10/26/24 Anthony Engle MD [address] [address] PCP - General Pediatrics 10/27/24 documented as of this encounter
--- OUTSIDE RECORDS SUMMARY | 2025-02-16 14:25 | XMS_ITS | Clinical Summary ---
Author Organization [facility] Address [address] [place] [address] Care Team Providers Care Resin Painter Name Role Phone Yasmin Ríos MD Primary Care Provider [phone] Kwesi Tilley MD, Uriel Maynardford Unavailable Allergies [...] N ot on file 05/16/2020 Data from: [email or web address] Last address used for calculation Not [...] Sigmoidoscopy Discontinued Medical Devices Implanted Type Area Mechanist Device Identifier Shelf Expiration Date Model / Serial / Lot [id number]-[id number] [id number] Implanted:11/04 (Quantity not on file) Pacemaker [employer] [id number] Meghan PEÑALOZA / [id number] / Procedures Procedure Name Priority Date/Time Associated Diagnosis Comments COMPREHENSIVE METABOLIC PANEL Routine 05/03/2020 2:33 PM EST Iron deficiency anemia due to chronic blood loss from Last 3 Months or Most Recently Relevant to Health Maintenance Results * (ABNORMAL) COMP METABOLIC PANEL (05/03/2020 2:33 PM EST) Protein, Total 7.1 6.3 - 8.0 g/dL 05/03/2020 3:09 PM [facility] Albumin 4.9 3.9 - 4.9 g/dL 05/03/2020 3:09 PM [facility] Calcium 10.8(H) 8.5 - 10.2 mg/dL 05/03/2020 3:09 PM [facility] Bilirubin, Total 0.2 0.2 - 1.3 mg/dL 05/03/2020 3:09 PM [facility] Alkaline Phosphatase 95 34 - 123 U/L 05/03/2020 3:09 PM [facility] AST 25 13 - 35 U/L 05/03/2020 3:09 PM [facility] Glucose 133(H) 74 - 99 mg/dL 05/03/2020 3:09 PM [facility] Comment: The [place] Diabetes Association (ADA) provides guidance for cutoff [...] Standards of Medical Care in Diabetes 2016, [place] Diabetes Association. Diabetes Care. 2016.39(Suppl 1). BUN 25(H) 7 - 21 mg/dL 05/03/2020 3:09 PM [facility] Creatinine 0.75 0.58 - 0.96 mg/dL 05/03/2020 3:09 PM [facility] Sodium 138 136 - 144 mmol/L 05/03/2020 3:09 PM [facility] Potassium 4.1 3.7 - 5.1 mmol/L 05/03/2020 3:09 PM [facility] Chloride 103 97 - 105 mmol/L 05/03/2020 3:09 PM [facility] CO2 27 22 - 30 mmol/L 05/03/2020 3:09 PM EST [facility] Anion Gap 8(L) 9 - 18 mmol/L 05/03/2020 3:09 PM EST [facility] ALT 25 7 - 38 U/L 05/03/2020 3:09 PM EST [facility] eGFR- >60 05/03/2020 3:09 PM EST [facility] eGFR-All Other Races >60 . 05/03/2020 3:09 PM [facility] Comment: eGFR (Estimated GFR) Units of measure: [...] EST Lloyd Aquino MD LABORATORY Final Result [address] [address] [facility] Cancer [address] from Last 3 Months or Most Recently Relevant to Health Maintenance Insurance MEDICARE MMO MEDICARE SUPPLEMENT Care Teams Resin Painter Relationship Specialty Start Date End Date Yasmin Ríos MD [address] [place] [address] PCP - General Family Medicine 03/30/14 Uriel Orosco Jr., MD [address] [facility] [place] [address] Cardiology 11/18/19
--- OUTSIDE RECORDS SUMMARY | 2025-02-16 14:25 | XMS_ITS | Encounter Summary ---
Author Organization [facility] Address [address] [place] [address] Care Team Providers Care Bulk Gas Specialist Name Role Phone Anthony Engle MD Primary Care Provider Encounter Details Date Type Department Care Team (Late Contact Info) Description 02/02/2025 Bamboo flowsheet [facility] [address] [place] [address] Gelacio Nolasco DPM [address] [place], [place] [phone] Social History Tobacco Use Types Packs/Day Years [...] 2:15 PM EST Office Visit [facility] [address] [place] [address] Gelacio Nolasco DPM [address] [place], [place] [phone] documented as of this encounter Visit Diagnoses Not on filedocumented in this encounter Care Teams Bulk Gas Specialist Relationship Specialty Start Date End Date Anthony Engle MD [address] [place] [phone] PCP - General Pediatrics 10/27/24 documented as of this encounter
--- OUTSIDE RECORDS SUMMARY | 2025-02-16 14:25 | XMS_ITS | Encounter Summary ---
Author Organization [employer] Address [facility] [id number] [address] [place] [address] Care Team Providers Care Landscape And Yardwork Laborer Name Role Phone Amrita Hooks MD Primary Care Provider [phone] Reason for Visit * Reason Comments Med Refill Encounter Details Date Type Department Care Team (Late st Contact Info) Description 08/28/2021 Refill [facility] [address] [facility] [address] [place] [address] Wilmer Doe MD [address] [facility] [address] [place] [address] Social History Tobacco Use Types Packs/Day Years Used Date Smoking Tobacco: Former Cigarettes 1 7 1 956 - 7983 Smokeless Tobacco: Never Alcohol Use Standard Drinks/Week [...] Family Medicine [address] [place] [phone] Jero Hitchcock, [address], [address], [place] [address] 05/02/2025 11:30 AM EST Office Visit [facility], A Department of [facility] [address] [address] Wilmer Doe MD [address] [address] documented as of this encounter [...] documented as of this encounter Care Teams Landscape And Yardwork Laborer Relationship Specialty Start Date End Date Amrita Hooks MD [address] [facility] [place] [address] PCP - General Internal Medicine 07/27/24 documented as of this encounter
--- OUTSIDE RECORDS SUMMARY | 2025-02-16 14:25 | XMS_ITS | Encounter Summary ---
Author Organization [employer] Address [id number] [address] [place] [address] Care Team Providers Care Gambling Cashier Name Role Phone Amrita Hooks MD Primary Care Provider [phone] Encounter Details Date Type Department Care Team (Late st Contact Info) Description 11/19/2022 Telephone [facility] [address] [place] [phone] Geovanna Lopez Social History Tobacco Use Types Packs/Day Years Used Date Smoking Tobacco: Former Cigarettes 1 7 1 635 - 2563 Smokeless Tobacco: Never Alcohol Use Standard Drinks/Week [...] Description 03/17/2025 9:30 AM EDT [facility] [address] [place] [address] [place] [address] Jero Hitchcock, [address] [facility] [address], [facility] [place] [address] 05/02/2025 11:30 AM EST Office Visit [facility] Neurology, A Department of [facility] [address] [address] Wilmer Doe MD [address] [address] documented as of this encounter [...] documented as of this encounter Care Teams Gambling Cashier Relationship Specialty Start Date End Date Amrita Hooks MD [address] [facility] [place] [place] [address] PCP - General Internal Medicine 07/27/24 documented as of this encounter
--- OUTSIDE RECORDS SUMMARY | 2025-02-16 14:25 | XMS_ITS | Encounter Summary ---
Author Organization [facility] Address [address] [place] [address] Care Team Providers Care Honing Machine Set Up Operator Tool Name Role Phone Unallocated, Noms Provider Primary Care Provi robin Anthony Engle MD Primary Care Provider Reason for Visit * Reason Comments Med Refill Encounter Details Date Type Department Care Team (Late Contact Info) Description 03/25/2024 Refill [facility] [address] [place] [address] Gelacio Nolasco, SUSANM [address] [place] [address] Dermatophytosis of nail; Dystrophic nail [...] Office Visit [facility] [address] [place] [address] Gelacio Nolasco DPM [address] [facility], [place] [phone] documented as of this encounter Visit Diagnoses Diagnosis Dermatophytosis of nail Dystrophic nail Other specified disease of nail documented in this encounter Care Teams Honing Machine Set Up Operator Tool Relationship Specialty Start Date End Date Unallocated, Noms Provider, [address] [place] [address] PCP - General Family Medicine 08/27/23 10/26/24 Anthony Engle MD [address] [address] PCP - General Pediatrics 10/27/24 documented as of this encounter
--- NOTE | 2025-02-16 15:00 | P.CN_ITS ---
Consult Note: HPI Data of Consult Patient: new to practice Consult date: 02/16/25 Requesting Physician: Bhavna Forbes NP Primary Care Provider: Yasmin Ríos MD Consult Narrative Reason for consult: left SIJ pain Narrative: Ayana Alves a pleasant 84 year old female presents for evaluation of left SIJ pain as referred by Dr Chacko. Pt has a hx of lumbar fusion/surgery at unknown levels. pt has failed to benefit from > 6 weeks of health care legal assistant, home exercise program, heat, ice, topical creams, tylenol. cannot take NSAIDs, on plavix. denies recent fall/injury. pain today 2/10 increasing to 8/10 with standing, walking, weeding, lifting, standing. Notes improvement with taping, sitting, lying, sleep. 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 cc:: CC: Bhavna Forbes NP Review of Systems ROS Musculoskeletal Reports: joint pain Exam Constitutional Documenting provider has reviewed patient's vital signs: yes Common normals: no apparent distress, oriented x3, healthy appearing, alert and well nourished General appearance: cooperative HENMT Common normals: normocephalic, hearing grossly normal bilaterally and moist oral mucous membranes Head and scalp: normocephalic Eye Common normals: PERRL Pupil: PERRL Neck & C-Spine Common normals: full ROM General: normal visual inspection Chest Common normals: inspection of chest normal Respiratory Common normals: normal respiratory effort, no retractions and no use of accessory muscles Back & Pelvis Lumbar spine/lower back: no pain with ROM and no lumbar spinal tenderness Sacroiliac joints: SI joint(s) abnormal Other: left sij positive andrea(patricks), gaenslens, thigh thrust, compression test Neuro Common normals: oriented x3 Sensorium/orientation: alert Psych Common normals: mental status grossly normal, thought process normal, cooperative, affect normal, speech normal and activity/motor behavior normal Speech: normal speech Thought process: normal thought process Results Additional Findings Additional findings: If on a controlled substance or opioids, I have checked an [place]AR[place] report on this patient and there are no aberrancies noted in the prescribing history.??If on a controlled substance or opioid a drug screen was completed and reviewed within the last year, and if there has not been a drug screen completed we ordered one today to monitor higher risk, state monitored pain medication use. As part of providing excellent, safe, comprehensive care, the following was completed at our patient's visit: 1. A medication reconciliation and review to ensure accurate knowledge of current/active medications, including asking our patients to inform us about any [id number] medications or herbal remedies/nutritional supplements/alternative remedies. 2. A review to specifically ensure our patients have had annual screening for screening for depression, screening for tobacco use, and screening for unhealthy alcohol use. For concerning screenings had a discussion with the patient, provided patient education, and recommended follow-up with primary care provider when appropriate. If patient noted with a risk of falling, they received education on strength, gait, and balance training to prevent future risk of falling. Portions of this note may have been carried over from the previous visit and updated as appropriate. Please note this office utilizes paper charting in addition to the electronic medical record. A list of current medications, vitals, and PMH is available there as the clinical staff outside of myself do not have access to [employer] charting during the clinic day operations. As part of providing quality comprehensive care the current medications, vitals, and PMH were reviewed in the paper chart. Assessment and Plan Assessment and Plan (1) Sacroiliitis: Plan The patient has had over 3 months of moderate to severe left SIJ pain with functional impairment and inadequate response to conservative care including NSAIDS (unless there are contraindication such as concurrent blood thinners), multiple oral or topical pain medications, and home exercise program/physical therapy.? Patient has completed >6 weeks of guided home exercise program and/or formal physical therapy program without relief of their symptoms.? MARTIN 9% proceed with left SIJ injection under fluoroscopy as recommended by Dr Chacko continue HEP as tolerated, continue health care legal assistant f/u 2 weeks after injection
--- OUTSIDE RECORDS SUMMARY | 2025-02-16 15:16 | XMS_ITS | CCD ---
Author Organization 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 Role Phone Jessica Maxwell MD Primary Care Provider [phone] Jayant Ambrocio Unavailable Jeb Salas Unavailable PROVIDER, UNKNOWN Admitting Unavailable PROVIDER, UNKNOWN Attending Unavailable Jessica Mawxell MD Primary Care Provider MITALI NARAYAN Consulting Unavailable JESSICA MAXWELL Primary Care Unavailable MITALI NARAYAN Admitting Unavailable MITALI NARAYAN Attending Unavailable MITALI NARAYAN MD Consulting Unavailable EDIN BOO Attending Unavailable VIVIAN DAMON Referring Unavailable JESSICA MAXWELL Primary Care Unavailable Jessica Maxwell Unavailable DO Jeb Salas Attending Provider [phone] Jeb Salas Admitting Unavailable Jeb Salas Attending Unavailable ALISSA, DR JESSICA Hale Admitting Unavailable ALISSA, DR JESSICA Hale Attending Unavailable ALISSA, DR JSESICA Hale Primary Care Unavailable ALISSA, DR JESSICA [...] ALISSA, DR JESSICA Hale Primary Care Unavailable LOLLY, DR SABA Attending Unavailable David Arellano DO Primary Care Provider Jessica Maxwell MD Primary Care Provider [phone] DEEPIKA GARCIA Attending Unavailable JESSICA MAXWELL Referring Unavailable MAXWELL, JESSICA E Primary Care Unavailable MOUNA DOE Attending Unavailable JESSICA MAXWELL E Referring Unavailable JESSEE, MUHAMID M Primary Care Unavailable JESSEE, MUHAMID M Attending Unavailable JESSICA MAXWELL Referring Unavailable JESSEE, MUHAMID M Primary Care Unavailable Jessee Halima GUILLERMO Primary Care Provider [phone] Jessee Halima GUILLERMO Primary Care Provider JESSICA MAXWELL Primary Care Unavailable EDIN POE Referring Unavailable EDIN POE Attending Unavailable DEEPIKA GARCIA Attending Unavailable JESSICA MAXWELL Referring Unavailable JESSEE, MUHAMID M Primary Care Unavailable DEEPIKA GARCIA Referring Unavailable JESSEE, MUHAMID M Primary Care Unavailable Anthony Engle MD Primary Care Provider JESSICA MAXWELL E Primary Care Unavailable ARNOLDBO BARGER Attending Unavailable ARNOLDBO H Attending Unavailable ARNOLD BO H Referring Unavailable MAXWELL, JESSICA E Primary Care Unavailable ARNOLDBO H Attending Unavailable ARNOLD, BO H Referring Unavailable MAXWELL, JESSICA E Primary Care Unavailable SAPORITA, EMY L Referring Unavailable MAXWELL, JESSICA E Primary Care Unavailable SAPORITA, EMY L Referring Unavailable MAXWELL, JESSICA E Primary Care Unavailable MAXWELL, JESSICA E Referring Unavailable MAXWELL, JESSICA E Primary Care Unavailable ALLEN VELASCO Attending Unavailable ALISSA, JESSICA E Referring Unavailable MAXWELL, JESSICA E Primary Care Unavailable ELVIE PARR Referring Unavailable MAXWELL, JESSICA E Primary Care Unavailable JAYANT AMBROCIO JR Referring Unavailable JESSEE, MUHAMID M Primary Care Unavailable DEEPIKA GARCIA Referring Unavailable JESSEE, MUHAMID M Primary Care Unavailable DEEPIKA GARCIA Referring Unavailable JESSEE, MUHAMID M Primary Care Unavailable NO FAMILY, PHYSICIAN Primary Care Provider Unava ilable Jeb Salas DO Attending Provider WERNER NOLASCO Attending Unavailable WERNER NOLASCO Attending Unavailable Allergies Allergy Classification Reported Allergen(s) Allergy Type Date of Onset Reaction(s) Facility (20 sources) Sulfonamides (Antibiotic); Translations: [SULFA (SULFONAMIDE ANTIBIOTICS)] Drug Intolerance 04-18-20 14 Rash, Unknown [facility] (1 source) sulfaSALAzine Drug Allergy Unknown [employer] Other (1 source) Sulfonamides (Antibiotic) Propensity to adverse reactions to drug 04-14-20 [facility] (2 sources) Sulfonamides (Antibiotic) Drug allergy (disorder) 12-15-19 13 [facility] Rep[facility] (20 sources) celecoxib; Translations: [CELECOXIB] Drug Allergy 05-24-20 13 Unknown, [facility] Comment on above: Onset Date: 05/24/20 13 (1 source) patient allergy list reviewed by nurse or physicia Propensity to adverse reactions 02-03-20 19 Comment:Done [employer] Other (1 source) Allergies Reconciled Propensity to adverse reactions Unknown [employer] Other (7 sources) celecoxib Drug Allergy 08-24-19 22 [facility] (18 sources) pantoprazole; Translations: [PANTOPRAZOLE] Drug Allergy 02-28-20 [facility] (18 sources) Other; Translations: [OTHER] Propensity to adverse reactions 05-02-20 23 [facility] Work Phone: Medications Current Medications Medication Drug [...] 0; Qty: 28 Tablet; Provider: Ginna Ramos Complies with drug therapy Start: 10-05-2021 take 1 tablet by corby [...] once daily. cholecalciferol 0.125 mg oral tablet (14 sources) Vitamin D Start: 04-29-20 24 take 1 tablet by mouth once daily in the morning VITAMIN D3 125 mcg (5,000 unit) tablet TAKE 1 TABLET BY MOUTH EVERY DAY IN THE MORNING 90 tablet 3 04/29/2024 Active clonazePAM 0.5 mg oral tablet (20 sources) Benzodiazepine Start: 02-14-20 25 take 1 tablet by mouth twice daily as needed for anxiety clonazePAM (KlonoPIN) 0.5 mg tablet Indications: Anxiety TAKE 1 TABLET (0.5 MG TOTAL) BY MOUTH 2 (TWO) TIMES A DAY NEEDED FOR ANXIETY. 60 tablet 02/13/2025 Active Start: 04-15-2022 take 0.25 mg by mout h three times daily as needed 0.25 mg, Oral, 3 TIMES DAILY PRN, Starting on 04/15/22 at 0013, Until Discontinued, Anxiety, facial tic Start: 12-20-2019 End: 02-13-2025 take 1 tablet by mouth twice daily as needed for anxiety clonazePAM (KlonoPIN) 0.5 mg tablet Indications: Anxiety Take 1 tablet (0.5 mg total) by mouth 2 (two) times a day as needed for anxiety. 60 tablet 01/04/2025 02/13/2025 Discontinued take 0.25 mg by mout h three [...] take 1 tablet by mouth once daily Clopidogrel 75 mg tablet Active 75 MG PO Daily January 31, 2025 12:00am Complies with drug therapy Start: 04-29-2022 take 1 tablet by corby [...] morning. Active fluconazole 150 mg oral tablet (3 sources) Azole Antifungal Start: 12-30-2023 Fluconazole 1 50 mg tablet Active 150 MG PO Q3D 2 December 30, 2023 12:00am Complies with drug therapy hydrocortisone 25 mg/ml topical cream (20 sources) Corticosteroid Start: 01-23-2025 hydrocortisone (ANUSOL-HC) 2.5 % rectal cream Insert 1 Application into the rectum in the morning and 1 Application before bedtime. 30 g 1 01/23/2025 Active Start: 08-22-2023 Hydrocortisone 2.5 % cream with perineal applicator Active 0 .ROUTE .COMPLEX 30 August 22, 2023 1:33pm APPLY TO AFFECTED AREA 1-2 TIMES DAILY NEEDED Complies with drug therapy Start: 08-22-2023 End: 08-22-2023 Hydrocortisone 2.5 % cream D iscontinued 1 APPLIC TOPICAL August 22, 2023 12:00am [...] dose nasal spray (20 sources) Anticholinergic Start: 08-17-2025 take 1 spray(s) nasal route in the morning ipratropium (ATROVENT) 42 mcg (0.06 %) nasal spray Indications: Obstructive airway disease ([facility]) Administer 1 spray into each nostril in the morning. 15 mL 3 01/23/2025 Active Start: 11-08-2024 End: 01-19-2025 take 1 spray(s) nasal route in the morning ipratropium (ATROVENT) 42 mcg (0.06 %) nasal spray Indications: Obstructive airway disease ([facility]) Administer 1 spray into each nostril in the morning. 15 mL 3 11/08/2024 01/19/2025 Discontinued (Reorder) Start: 10-20-2023 take 2 spray(s) nasa l route once daily Ipratropium Goehner 42 mcg (0.06 %) spray,non-aerosol Active 0 .ROUTE .COMPLEX 45 October 20, 2023 12:40pm SPRAY 2 SPRAYS INTO EACH NOSTRIL ONCE A DAY Complies with drug therapy Start: 09-17-2023 End: 10-20-2023 take 2 spray(s) nasal route once daily Ipratropium Goehner 42 mcg (0.06 %) spray,non-aerosol Discontinued 2 SPRAY INTRANASAL Daily September 17, 2023 12:00am October 20, 2023 12:40pm [employer] sprays in each nostril Nasally Once a Day; Note: Source Status: Taking; Refills: 5; Provider: Alissa Hale ipratropium (Atr ovent) 0.03 % nasal spray Administer 2 sprays into each nostril every 12 (twelve) hours. Active take 2 spray(s) nasa l route once daily Ipratropium Goehner 0.06 % 2 sprays in each nostril Nasally Once a Day for 30 days Active take 2 spray(s) nasa l route once daily Ipratropium Goehner 0.06 % 2 sprays in each nostril Nasally Once a Day for 30 days Active take 2 spray(s) nasa l route three times daily Ipratropium Goehner 0.06 % 2 sprays in each nostril [...] in the nose once daily. Lactobacillus acidophilus (15 sources) Lactobacillus acidophilus (PROBIOTIC ORAL) Take by [...] tablet (20 sources) l-Triiodothyronine Start: 2 take 1 tablet by mouth once daily liothyronine (CYTOMEL) 5 MCG tablet Indications: Postprocedural hypothyroidism , Postoperative hypothyroidism TAKE 1 TABLET BY MOUTH EVERY DAY ON AN EMPTY STOMACH 90 tablet 3 06/11/2024 Active take 1 tablet by corby th every twenty-four hours Liothyronine Sodium 5 MCG 1 tablet on an empty stomach Orally Once a day Active ondansetron 4 mg disintegrating oral tablet [...] disintegrating tablet 4 mg polyethylene glycol 3350 [id number] mg powder for oral solution (1 source) Osmotic Laxative Start: 04-14-2022 polyethylene glycol (GLYCOLAX) packet 17 g saccharomyces boulardii 250 mg oral capsule (7 sources) take 1 capsule by mouth in [...] mg tablet Active 25 MG PO September 17, 2023 12:00am [employer] tablet Orally; Note: Source Status: Taking; Provider: Alissa Hoffman ( ) Complies with drug therapy Comment on above: Take 25 mg by [...] iopamidol (ISOVUE-370) 76 % injection 130 mL meloxicam 15 mg oral tablet (14 sources) Nonsteroidal Anti-inflammatory Drug Start: 12-30-2023 End: 01-31-2025 take 1 tablet by mouth once daily Meloxicam 15 mg tablet Discontinued 0 .ROUTE .COMPLEX December 30, 2023 10:42am January 31, 2025 10:11am TAKE 1 TABLET BY MOUTH EVERY DAY Start: 07-24-2023 End: 12-30-2023 take 1 tablet by mouth once daily Meloxicam 15 mg tablet Discontinued 15 MG PO Daily July 24, 2023 1:00am December 30, 2023 10:42am Meloxicam 15 MG TAKE 1 TABLET BY MOUTH EVERY DAY FOR 30 DAYS for 30 Active metoprolol tartrate 25 mg oral tablet (20 sources) beta-Adrenergic Yuki Start: 09-17-2023 End: 02-24-2024 take 1 tablet by mouth twice daily at mealtime Metoprolol Tartrate 25 mg tablet Discontinued 25 MG PO Twice daily September 17, 2023 12:00am February 24, 2024 10:44am [employer] tablet with food Orally Twice a [...] daily. Strophantil 0 Active Comment on above: Kenalejandra BDZ Support S trength and Density 2 [...] abdominal pain] Onset: 5 Episodic Administrative/social admission (3 sources) Patient encounter status; Translations: [Other specified counseling] 09-21-2023 Episodic Comment on above: Discussed DNR v. DNR CC A - Pt and both agreed to DNR CCA - forms signed, original given to pt. call if further questions. Anxiety disorders (11 sources) Generalized anxiety disorder; Translations: [Generalized anxiety disorder] Onset: 5 10-09-2023 Chronic Cardiac dysrhythmias (20 sources) Atrial fibrillation; Translations: [Unspecified atrial fibrillation] Onset: 9 11-18-2019 Chronic Chronic obstructive pulmonary disease and bronchiectasis (2 sources) Obstruction of lower respiratory tract; Translations: [Chronic obstructive pulmonary disease, unspecified] 11-08-2024 Chronic Coagulation and hemorrhagic disorders (15 sources) Thrombocytopenic disorder; Translations: [Thrombocytopenia, unspecified] Onset: 9 11-01-2018 Chronic Coagulation and hemorrhagic disorders (1 source) Spontaneous ecchymosis; Translations: [Spontaneous ecchymoses] Episodic Complications of surgical procedures or medical care (6 sources) Postoperative hypothyroidism; Translations: [Postprocedural hypothyroidism] Onset: 5 06-25-2024 Chronic Conduction disorders (17 sources) Cardiac pacemaker in situ; Translations: [Presence [...] Onset: 4 Chronic Fracture of lower limb (2 sources) Closed fracture of ankle; Translations: [Other fracture of left lower leg, initial encounter for closed fracture] 03-04-2024 Episodic Heart valve disorders (20 sources) Nonrheumatic mitral (valve) insufficiency; Translations: [Rheumatic disease of mitral valve] Onset: 9 08-28-2018 Chronic Hemorrhoids (1 source) Thrombosed hemorrhoids; Translations: [Perianal venous thrombosis] Episodic Malaise and fatigue (20 sources) Fatigue; Translations: [Chronic fatigue, unspecified] Chronic Mycoses (4 sources) Onychomycosis due to dermatophyte ; Translations: [Tinea unguium] 07-10-2023 Episodic Nonspecific chest pain (2 sources) Chest pain; Translations: [Chest pain, unspecified] Onset: 8 Episodic Nutritional deficiencies (20 sources) Vitamin D deficiency, unspecified; Translations: [Vitamin D deficiency] Onset: 2 Chronic Osteoarthritis (20 sources) Osteoarthritis of right hip joint; Translations: [Unilateral primary osteoarthritis, right hip] 01-31-2025 Chronic Osteoporosis (5 sources) Primary osteoporosis; Translations: [Age-related osteoporosis without current pathological fracture] Onset: 4 09-23-2024 Chronic Other and ill-defined cerebrovascular disease (15 sources) Cerebrovascular disease; Translations: [Cerebrovascular disease, unspecified] [...] toe(s)] 07-10-2023 Episodic Other connective tissue disease (3 sources) Pain in hallux; Translations: [Pain in right toe(s)] 10-27-2024 Episodic Other ear and sense organ disorders (1 source) Impacted cerumen; Translations: [Impacted cerumen, unspecified ear] Episodic Other endocrine disorders (16 sources) Hyperparathyroidism; Translations: [Hyperparathyroidism, unspecified] Onset: 3 [...] Other hereditary and degenerative nervous system conditions (13 sources) Essential tremor; Translations: [Essential tremor] Onset: [...] right hip] Episodic Other non-traumatic joint disorders (3 sources) Acute ankle pain; Translations: [Pain in left ankle and joints of left foot] 02-24-2024 Episodic Other non-traumatic joint disorders (2 sources) Pain in left ankle and joints of left foot; Translations: [Pain in joint, ankle and foot] 02-24-2024 Episodic Other non-traumatic joint disorders (3 sources) Hip pain; Translations: [Pain in left hip] Onset: 5 01-27-2025 Episodic Other nutritional; endocrine; and metabolic disorders (2 sources) Hypercalcemia; Translations: [HYPERCALCEMIA] Onset: 2 Chronic Other nutritional; endocrine; and metabolic disorders (11 sources) Hypercalcemia; Translations: [Hypercalcemia] Onset: 7 Chronic Other screening for suspected conditions (not mental disorders or infectious disease) (1 source) Encounter for screening mammogram for malignant neoplasm of breast Episodic Other skin disorders (4 sources) Dystrophia unguium; Translations: [Nail dystrophy] 07-10-2023 Episodic Other upper respiratory disease (1 source) Other specified disorders of nose and nasal sinuses; Translations: [Other specified disorders of nose and nasal sinuses] Episodic Other upper respiratory infections (6 sources) Acute upper respiratory infection; Translations: [Acute upper respiratory infections of unspecified site] Onset: 4 04-26-2024 Episodic Rosamaria-; endo-; and myocarditis; cardiomyopathy (except that caused by tuberculosis or sexually transmitted disease) (1 source) Endocarditis, valve unspecified; Translations: [Endocarditis, valve unspecified] Onset: 4 Chronic Pulmonary heart disease (14 sources) Pulmonary hypertension; Translations: [Pulmonary hypertension, unspecified] [...] [Cervicalgia] Onset: 5 Episodic Sprains and strains (3 sources) Strain of muscle, fascia and tendon of left hip, subsequent encounter; Translations: [Strain of flexor muscle of left hip] Episodic Thyroid disorders (20 sources) Hypothyroidism, unspecified; Translations: [Hypothyroidism] Onset: 2 Chronic Transient cerebral ischemia (16 sources) Transient cerebral ischemia; Translations: [Unspecified transient [...] Documented Da te Episodic/Chronic Acute cerebrovascular disease (16 sources) Hematoma of subdural space of neuraxis; Translations: [Subdural hematoma] Onset: 2 Resolved: 5 Chronic Allergic reactions (1 source) Allergic contact dermatitis; Translations: [Allergic contact dermatitis, unspecified cause] Onset: 7 Episodic Cardiac dysrhythmias (15 sources) Bradycardia; Translations: [Bradycardia, unspecified] Onset: 9 11-04-2018 Episodic Deficiency and other anemia (13 sources) Bone marrow disorder; Translations: [Other specified [...] fracture] Onset: 4 Episodic Headache; including migraine (16 sources) Headache; Translations: [Headache, unspecified] Onset: 5 [...] INIT] Onset: 2 Episodic Malaise and fatigue (20 sources) Other fatigue; Translations: [Fatigue] Onset: 0 Episodic Mood disorders (15 sources) Mood disorders Onset: 2 10-18-2021 Open wounds of head; neck; and trunk (1 source) Laceration without foreign body of oral cavity, initial encounter; Translations: [LACERATION W/O FB ORAL CAV INIT ENC] Onset: 2 Episodic Other aftercare (16 sources) Anticoagulant effect; Translations: [medical terminologist (current) use of anticoagulants] Onset: 0 Resolved: 2 11-18-2019 Episodic Other aftercare (1 source) medical terminologist (current) use of antithrombotics/antipl atelets; Translations: [FILLING TECHNICIAN ANTITHROMBOT/ANTIPLATL ETS] Onset: 2 Episodic Other aftercare (1 source) 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; Translations: [OTH FILLING TECHNICIAN CURRENT DRUG THERAPY] Onset: 2 Episodic Other aftercare (15 sources) Long-term current use of anticoagulant; Translations: [USP (current) use of anticoagulants] Onset: 9 11-06-2018 Episodic Other aftercare (15 sources) Wound ; Translations: [Encounter for other specified surgical aftercare] Onset: 9 11-16-2018 Episodic Other bone disease and musculoskeletal deformities (17 sources) Osteopenia; Translations: [Other specified disorders of [...] site] Onset: 3 Episodic Other circulatory disease (16 sources) History of transient ischemic attack; Translations: [...] (gaseous)] Onset: 6 Episodic Other gastrointestinal disorders (15 sources) Altered bowel function; Translations: [Change in bowel habit] Onset: 8 04-27-2018 Episodic Other gastrointestinal disorders (15 sources) Diarrhea; Translations: [Diarrhea, unspecified] Onset: 8 04-27-2018 Episodic Other hereditary and degenerative nervous system conditions (15 sources) Tardive dyskinesia; Translations: [Drug induced subacute [...] Onset: 4 Episodic Other nervous system disorders (15 sources) Involuntary movement; Translations: [Unspecified abnormal involuntary [...] Onset: 0 11-18-2019 Episodic Residual codes; unclassified (15 sources) Pain; Translations: [Pain, unspecified] Onset: 9 11-01-2018 Episodic Residual codes; unclassified (20 sources) Memory impairment; Translations: [Other amnesia] Onset: 0 Resolved: 5 04-18-2020 Episodic Respiratory failure; insufficiency; arrest (adult) (13 sources) 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; 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 [ventilator] status] Onset: 5 Resolved: 5 07-28-2024 Chronic Superficial injury; contusion (3 sources) Contusion of other part of head, initial encounter; Translations: [Contusion of hand] Onset: 2 Episodic Results Test Name Value Interpretation Reference Range Facility CALCIUMon 11-25-2024 Calcium [Mass/Vol] 10.4 mg/dL Normal 8.5-10.5 [facility] Comment on above: Performed By: #### [place], [address]-9, PINR, CBCA #### [facility] ([id number]) [address] [place] [address] CREATININE, SERUMon 11-26-19 25 Creatinine [Mass/Vol] 0.81 mg/dL Normal 0.40-1.00 [facility] Comment on above: Result Comment: METH OD TRACEABLE TO IDMS STANDARD Performed By: #### [place], [address]-7, PINR, CBCA #### [facility] ([id number]) [address] [place] [address] GFR/1.73 sq M.predicted among non-blacks MDRD (S/P/Bld) [Vol rate/Area] 72 mL/min/{1.73_m2} Normal >=60 [facility] Comment on above: Result Comment: Repo rted eGFR is based on the CKD-EPI 2020 equation that does not use a race coefficient. Performed By: #### [place], [address]-7, PINR, CBCA #### [facility] ([id number]) [address] [place] [address] VITAMIN D 25 HYDROXYon 11-25 VITAMIN D 25 HYD TOT 71.2 ng/mL Normal 30.0-100.0 [facility] Comment on above: Order Comment: Vitam in D status 25 [place] Vitamin D Deficiency <20 ng/mLInsufficiency 20-29 ng/mLSufficiency 30-100 ng/mLToxicity >100 ng/mLNOTE: A pediatric reference range has not been established by the verifying specialist of this kit. The [place] [employer] recommends a Vitamin D level of = or >20ng/mL in infants and children. Performed By: #### [place], [address]-3, PINR, CBCA #### [facility] ([id number]) [address] [place] [address], [place] [address] XR CHEST 2 VWSon 10-07-2024 XR CHEST 2 VWS XR CHEST 2 VWS Chest 2 views History: Shortness of breath Comparison: 12/01/2023 Findings: Chest 2 views. Stable cardiomediastinal silhouette. There is no focal opacity, effusion or pneumothorax. Impression: No evident acute cardiopulmonary process. Finalized by Edin Bedolla MD on 10/07/2024 12:57 PM Normal [facility] CBC AND AUTO DIFFon 09-24-19 25 ABSOLUTE BASOPHIL 0.0 X10E9/L Normal 0.0-0.2 [facility] Comment on above: Performed By: #### C PETE, 85699-4, 9, 305-0, THYR #### [facility] ([id number]) [address], [address] [place] [address] ABSOLUTE NEUTROPHIL 2.8 X10E9/L Normal 1.5-6.6 [facility] Comment on above: Performed By: #### C PETE, 64759-6, 2131-9, 305-0, THYR #### [facility] ([id number]) [address], [address] [place] [address] Basophils/100 WBC (Bld) 0.7 % Normal [facility] Comment on above: Performed By: #### C PETE, 32799-8, 9, 305-0, THYR #### [facility] ([id number]) [address] [address] [place] [address] Eosinophils (Bld) [#/Vol] 0.1 10*3/uL Normal 0.0-0.4 [facility] Comment on above: Performed By: #### C PETE, 02864-0, 2132-02, 0, THYR #### [facility] ([id number]) [address], [facility] [address] [place] [address] Eosinophils/100 WBC (Bld) 3.4 % Normal [facility] Comment on above: Performed By: #### C PETE, 93510-5, 2132-02, 0, THYR #### [facility] ([id number]) [address] [address] [place] [address] Erythrocyte distribution width (RBC) [Ratio] 13.2 % Normal 11.5-15.0 [facility] Comment on above: Performed By: #### C PETE, 36875-4, 2132-02, 0, THYR #### [facility] ([id number]) [address] [address] Hematocrit (Bld) [Volume fraction] 39.1 % Normal 35-47 [facility] Comment on above: Performed By: #### Aubrey FREEMAN, 63909-6, 2132-02, 0, THYR #### [facility] ([id number]) [address] [address] [place] [address] Hemoglobin (Bld) [Mass/Vol] 13.2 g/dL Normal 11.7-15.5 [facility] Comment on above: Performed By: #### C PETE, 13968-7, 2132-02, 0, THYR #### [facility] ([id number]) [address] [address] Lymphocytes (Bld) [#/Vol] 0.6 10*3/uL Low 1.0-3.5 [facility] Comment on above: Performed By: #### Aubrey FREEMAN, 99001-6, 2132-02, 3050-0, THYR #### [facility] ([id number]) [address], [address] [place] [address] Lymphocytes/100 WBC (Bld) 15.8 % Normal [facility] Comment on above: Performed By: #### Aubrey FREEMAN, 01138-0, 2132-02, 3050-0, THYR #### [facility] ([id number]) [address], [facility] [address] [place] [address] MCH (RBC) [Entitic mass] 29.2 pg Normal 27-34 [facility] Comment on above: Performed By: #### Aubrey FREEMAN, 33550-9, 2132-02, 0, THYR #### [facility] ([id number]) [address], [address] [place] [address] MCHC (RBC) [Mass/Vol] 33.7 g/dL Normal 32-36 [place] Comment on above: Performed By: #### Aubrey FREEMAN, 74441-5, 2132-02, 3050-0, THYR #### [facility] ([id number]) [address], [facility] [address] [place] [address] MCV (RBC) [Entitic vol] 87 fL Normal 80-100 [facility] Comment on above: Performed By: #### Aubrey FREEMAN, 51408-3, 2132-02, 3050-0, THYR #### [facility] ([id number]) [address], [address] [place] [address] Monocytes (Bld) [#/Vol] 0.4 10*3/uL Normal 0-0.9 [facility] Comment on above: Performed By: #### Aubrey FREEMAN, 95281-5, 2132-02, 3050-0, THYR #### [facility] ([id number]) [address], [address] [place] [address] Monocytes/100 WBC (Bld) 9.8 % Normal [facility] Comment on above: Performed By: #### Aubrey FREEMAN, 63527-1, 2132-02, 3050-0, THYR #### [facility] ([id number]) [address], [address] [place] [address] Neutrophils/100 WBC (Bld) 70.3 % Normal [facility] Comment on above: Performed By: #### Aubrey FREEMAN, 55618-4, 2132-02, 0, THYR #### [facility] ([id number]) [address], [address] [place] [address] Platelet mean volume (Bld) [Entitic vol] 8.4 fL Normal 7-12 [facility] Comment on above: Performed By: #### Aubrey FREEMAN, 00760-2, 2132-02, 3050-0, THYR #### [facility] ([id number]) [address], [address] [place] [address] Platelets (Bld) [#/Vol] 182 10*3/uL Normal 150-450 [facility] Comment on above: Performed By: #### Aubrey FREEMAN, 35774-9, 2132-02, 3050-0, THYR #### [facility] ([id number]) [address], [address] [place] [address] RBC COUNT 4.51 X10E12/L Normal 3.80-5.20 [facility] Comment on above: Performed By: #### Aubrey FREEMAN, 80579-7, 2132-02, 3050-0, THYR #### [facility] ([id number]) [address], [address] [place] [address] WBC (Bld) [#/Vol] 4.0 10*3/uL Normal 4.0-11.0 [facility] Comment on above: Performed By: #### C PETE, 12056-3, 2132-02, 0, THYR #### [facility] ([id number]) [address], [address] [place] [address] FREE T3on 09-23-2024 Free T3 [Mass/Vol] 2.82 pg/mL Normal 2.50-3.90 [facility] Comment on above: Performed By: #### C PETE, 90663-9, 2132-02, 0, THYR #### [facility] ([id number]) [address], [address] [place] [address] Methylmalonate [Moles/Vol]on 09-23-2024 Methylmalonic Acid, QN, P 0.20 nmol/mL Normal <=0.40 [facility] Comment on above: Result Comment: NOTE ADDITIONAL INFORMATION This test was developed and its performance characteristics determined by [facility] in a manner consistent with CLIA requirements. This test has not been cleared or approved by the U.S. Food and Drug Administration. Test Performed by: [facility] [place] [address] [employer] Crewmember: Ferny Puckett Ph.D.; CLIA# [id number] Performed By: #### C PETE, 31720-6, 2132-02, 0, THYR #### [facility] ([id number]) [address], [address] [place] [address] THYROID PROFILEon 09-23-2024 Free T4 [Mass/Vol] 0.95 ng/dL Normal 0.61-1.60 [facility] Comment on above: Performed By: #### C PETE, 26334-2, 2132-02, 0, THYR #### [facility] ([id number]) [address], [address] [place] [address] TSH 3.30 uIU/mL Normal 0.49-4.67 [facility] Comment on above: Performed By: #### C PETE, 44465-5, 2132-02, 3050-0, THYR #### [facility] ([id number]) [address], [address] [place] [address] VITAMIN B12on 09-23-2024 Cobalamin (Vitamin B12) [Mass/Vol] 260 pg/mL Normal 180-914 [facility] Comment on above: Performed By: #### C PETE, 88779-5, 2132-02, 0, THYR #### [facility] ([id number]) [address] [place] [address] Vitamin D+Metabolites [Mass/ Vol]on 09-23-2024 VITAMIN D 25 HYD TOT 65.6 ng/mL Normal 30-100 [facility] Comment on above: Result Comment: Vitamin D status 25 [place] Vitamin D Deficiency <20 ng/mL Insufficiency 20-29 ng/mL Sufficiency 30-100 ng/mL Toxicity >100 ng/mL NOTE: A pediatric reference range has not been established by the verifying specialist of this kit. The [place] [employer] recommends a Vitamin D level of = or >20ng/mL in infants and children. Performed By: #### C PETE, 21363-3, 2132-02, 0, THYR #### [facility] ([id number]) [address], [address] [place] [address] MR SHOULDER RT WO CONTon MR SHOULDER [...] Sher MD on 04/29/2024 4:38 PM Normal [facility] No Panel Informationon 04-08 25-Hydroxy Vitamin D Total 43.9 ng/mL [facility] Comment on above: <20 ng/mL Vit D defi cient20-<30 ng/mL Vit D yfrvtfazdmes40-628 ng/mL Vit D sufficient>100 ng/mL Potential Toxicity BASIC METABOLIC PANLon 11-30 Anion gap [Moles/Vol] 7 mmol/L Normal 5-15 [facility] Comment on above: Performed By: #### B JACKLYN, 66644-0, PINR, CBCA #### [facility] ([id number]) [address] [place] [address] Calcium [Mass/Vol] 9.9 mg/dL Normal 8.5-10.5 [facility] Comment on above: Performed By: #### B JACKLYN, 70011-2, PINR, CBCA #### [facility] ([id number]) [address] [place] [address] Chloride [Moles/Vol] 109 mmol/L Normal 98-109 [facility] Comment on above: Performed By: #### B JACKLYN, 74714-9, PINR, CBCA #### [facility] ([id number]) [address] [place] [address] CO2 [Moles/Vol] 20 mmol/L Low 22-32 [facility] Comment on above: Performed By: #### B JACKLYN, 96951-1, PINR, CBCA #### [facility] ([id number]) [address] [place] [address] Creatinine [Mass/Vol] 0.82 mg/dL Normal 0.40-1.00 [facility] Comment on above: Result Comment: METH OD TRACEABLE TO IDMS STANDARD Performed By: #### B JACKLYN, 41074-5, PINR, CBCA #### [facility] ([id number]) [address] [place] [address] GFR/1.73 sq M.predicted among non-blacks MDRD (S/P/Bld) [Vol rate/Area] 71 mL/min/{1.73_m2} Normal >59 [facility] Comment on above: Result Comment: Reported eGFR is based on the CKD-EPI 2020 equation that does not use a race coefficient. Performed By: #### B JACKLYN, 20932-0, PINR, CBCA #### [facility] ([id number]) [address] [place] [address] Glucose [Mass/Vol] 118 mg/dL High 65-99 [facility] Comment on above: Performed By: #### B JACKLYN, 94486-4, PINR, CBCA #### [facility] ([id number]) [address] [place] [address] Potassium [Moles/Vol] 3.6 mmol/L Normal 3.5-5.0 [facility] Comment on above: Performed By: #### B JACKLYN, 10590-8, PINR, CBCA #### [facility] ([id number]) [address] [place] [address] Sodium [Moles/Vol] 136 mmol/L Normal 134-146 [facility] Comment on above: Performed By: #### B JACKLYN, 53982-7, PINR, CBCA #### [facility] ([id number]) [address] [place] [address]68 Urea nitrogen [Mass/Vol] 24 mg/dL Normal 5-27 [facility] Comment on above: Performed By: #### B MP, 93315-5, PINR, CBCA #### [facility] ([id number]) [address] [place] [address] CBC AND AUTO DIFFon 24-20 24 ABSOLUTE BASOPHIL 0.0 X10E9/L Normal 0.0-0.2 [facility] Comment on above: Performed By: #### B JACKLYN, 10744-1, PINR, CBCA #### [facility] ([id number]) [address] [place] [address] ABSOLUTE NEUTROPHIL 2.6 X10E9/L Normal 1.5-6.6 [facility] Comment on above: Performed By: #### [place], 31896-0, PINR, CBCA #### [facility] ([id number]) [address] [place] [address] Basophils/100 WBC (Bld) 0.5 % Normal [facility] Comment on above: Performed By: #### B MP, 73695-5, PINR, CBCA #### [facility] ([id number]) [address] [place] [address] Eosinophils (Bld) [#/Vol] 0.2 10*3/uL Normal 0.0-0.4 [facility] Comment on above: Performed By: #### [place], 78347-7, PINR, CBCA #### [facility] ([id number]) [address] [place] [address]1094 Eosinophils/100 WBC (Bld) 3.5 % Normal [facility] Comment on above: Performed By: #### [place], 32253-9, PINR, CBCA #### [facility] ([id number]) [address] [place] [address] Erythrocyte distribution width (RBC) [Ratio] 13.3 % Normal 11.5-15.0 [facility] Comment on above: Performed By: #### B JACKLYN, 88319-4, PINR, CBCA #### [facility] ([id number]) [address] [place] [address]708 Hematocrit (Bld) [Volume fraction] 36.5 % Normal 35-47 [facility] Comment on above: Performed By: #### B JACKLYN, 68532-4, PINR, CBCA #### [facility] ([id number]) [address] [place] [address]4028 Hemoglobin (Bld) [Mass/Vol] 12.6 g/dL Normal 11.7-15.5 [facility] Comment on above: Performed By: #### B JACKLYN, 31353-0, PINR, CBCA #### [facility] ([id number]) [address] [place] [address] 34222 Lymphocytes (Bld) [#/Vol] 1.8 10*3/uL Normal 1.0-3.5 [facility] Comment on above: Performed By: #### B JACKLYN, 69879-9, PINR, CBCA #### [facility] ([id number]) [address] [place] [address]2710 Lymphocytes/100 WBC (Bld) 35.7 % Normal [facility] Comment on above: Performed By: #### B JACKLYN, 90909-3, PINR, CBCA #### [facility] ([id number]) [address] [place] [address] 83347 MCH (RBC) [Entitic mass] 29.7 pg Normal 27-34 [facility] Comment on above: Performed By: #### B JACKLYN, 67434-3, PINR, CBCA #### [facility] ([id number]) [address] [place] [address] 69988 MCHC (RBC) [Mass/Vol] 34.5 g/dL Normal 32-36 [facility] Comment on above: Performed By: #### B MP, 89927-9, PINR, CBCA #### [facility] ([id number]) [address] [place] [address]103 MCV (RBC) [Entitic vol] 86 fL Normal 80-100 [facility] Comment on above: Performed By: #### B JACKLYN, 55315-1, PINR, CBCA #### [facility] ([id number]) [address] [place] [address] 37747 Monocytes (Bld) [#/Vol] 0.4 10*3/uL Normal 0-0.9 [facility] Comment on above: Performed By: #### B MP, 01663-1, PINR, CBCA #### [facility] ([id number]) [address] [place] [address]12 Monocytes/100 WBC (Bld) 7.7 % Normal [facility] Comment on above: Performed By: #### [place], 51134-5, PINR, CBCA #### [facility] ([id number]) [address] [place] [address]25 Neutrophils/100 WBC (Bld) 52.6 % Normal [facility] Comment on above: Performed By: #### B MP, 65636-2, PINR, CBCA #### [facility] ([id number]) [address] [place] [address] 16237 Platelet mean volume (Bld) [Entitic vol] 7.9 fL Normal 7-12 [facility] Comment on above: Performed By: #### B MP, 70391-9, PINR, CBCA #### [facility] ([id number]) [address] [place] [address]152 Platelets (Bld) [#/Vol] 171 10*3/uL Normal 150-450 [facility] Comment on above: Performed By: #### B MP, 72824-6, PINR, CBCA #### [facility] ([id number]) [address] [place] [address] 85250 RBC COUNT 4.24 X10E12/L Normal 3.80-5.20 [facility] Comment on above: Performed By: #### B JACKLYN, 95454-2, PINR, CBCA #### [facility] ([id number]) [address] [place] [address] 63987 WBC (Bld) [#/Vol] 4.9 10*3/uL Normal 4.0-11.0 [facility] Comment on above: Performed By: #### B JACKLYN, 96796-2, PINR, CBCA #### [facility] ([id number]) [address] [place] [address]369 PROTIME AND INRon 12-01-2023 INR Coag (PPP) [Relative time] 1.0 {INR} Normal 0.8-1.1 [facility] Comment on above: Performed By: #### B JACKLYN, 11157-5, PINR, CBCA #### [facility] ([id number]) [address] [place] [address] 98416 PT Coag (PPP) [Time] 11.5 s Normal 9.8-13.2 [facility] Comment on above: Result Comment: NEW REFERENCE RANGE Performed By: #### B JACKLYN, 95327-3, PINR, CBCA #### [facility] ([id number]) [address] [place] [address] 25871 XR CHEST 1 VWon 12-01-2023 XR CHEST 1 VW XR CHEST 1 VW Single view chest History: Difficulty breathing, shortness of breath Comparison: 11/14/2022 Impression: 1. No acute pulmonary process. No pneumothorax or pleural effusion. 2. Nonenlarged heart. Cardiac valve prostheses. Left chest wall cardiac electronic device. 3. Comminuted right proximal humeral fracture. Finalized by Keshawn Brock MD on 12/01/2023 11:27 PM Normal [facility] XR ELBOW RT MIN 3 VWSon 11-08 XR ELBOW RT MIN 3 VWS XR ELBOW RT MIN 3 VWS XR ELBOW RT MIN 3 VWS HISTORY: Trauma. Elbow pain COMPARISON: none IMPRESSION: 1. No acute fracture or dislocation. No effusion. 2. Mild degenerative changes of the elbow. Finalized by Keshawn Brock MD on 12/01/2023 11:26 PM Normal [facility] XR HAND RT MIN 3 VWSon [...] Brock MD on 12/01/2023 11:28 PM Normal [facility] XR SHOULDER RT MIN 2 VWSon [...] Brock MD on 12/01/2023 11:27 PM Normal [facility] aPTT Coag (PPP) [Time]on aPTT Coag (Bld) [Time] 36 s Normal 26-37 [facility] Comment on above: Result Comment: NEW REFERENCE RANGE Performed By: #### B , 65443-7, PINR, CBCA #### [facility] ([id number]) [address] [place] [address] Basophils Auto (Bld) [#/Vol] on 11-26-2023 Basophils (Bld) [#/Vol] 0.0 10 3/uL 0.0-0.[address] [facility] Basophils/100 WBC Auto (Bld) on 11-26-2023 Basophils/100 WBC (Bld) 0.4 % 0.2-2.[address] [facility] Eosinophils/100 WBC Auto (Bl d)on 11-26-2023 Eosinophils/100 WBC (Bld) 4.0 % 0.9-7.[address] [facility] Erythrocyte distribution wid th Auto (RBC) [Ratio]on 11-26-2023 Erythrocyte distribution width (RBC) [Ratio] 12.0 % 11.0-15.[address] [facility] Hematocrit Auto (Bld) [Volum e fraction]on 11-26-2023 Hematocrit (Bld) [Volume fraction] 36.2 % 36.0-48.[address] [facility] Hemoglobin [Mass/volume] in Bloodon 11-26-2023 Hemoglobin (Bld) [Mass/Vol] 12.0 g/dL 12.0-16.[address] [facility] Iron binding capacity [Mass/ volume] in Serum or Plasmaon 11-26-2023 Iron binding capacity [Mass/Vol] 368.0 ug/dL 250.0-450.[address] [facility] Iron saturation [Mass Fracti on] in Serum or Plasmaon 11-26-2023 Iron saturation [Mass fraction] 24.5 % [facility] Laboratory - Chemistry and C hemistry - challengeon 11-26-2023 Iron [Mass/Vol] 90.0 ug/dL 50.0-170.[address] [facility] - Hematology and Cell countson 11-26-2023 Immature granulocytes/100 WBC (Bld) 0.0 % 0.0-0.[address] [facility] Leukocytes [#/volume] correc amelia for nucleated erythrocytes in Blood by Automated counon 11-26-2023 WBC corrected for nucl RBC Auto (Bld) [#/Vol] 5.0 10 3/uL 4.0-11.[address] [facility] Lymphocytes Auto (Bld) [#/Vo l]on 11-26-2023 Lymphocytes (Bld) [#/Vol] 1.0 10 3/uL Low 1.2-3.[address] [facility] Lymphocytes/100 WBC Auto (Bl d)on 11-26-2023 Lymphocytes/100 WBC (Bld) 20.5 % 20.5-60.[address] [facility] MCH Auto (RBC) [Entitic mass ]on 11-26-2023 MCH (RBC) [Entitic mass] 29.8 pg 26.7-34.[address] [facility] MCHC Auto (RBC) [Mass/Vol]on 11-26-2023 MCHC (RBC) [Mass/Vol] 33.1 g/dL 29.9-35.2 [facility] MCV Auto (RBC) [Entitic vol] on 11-26-2023 MCV (RBC) [Entitic vol] 89.8 fL 81.0-99.[address] [facility] Monocytes Auto (Bld) [#/Vol] on 11-26-2023 Monocytes (Bld) [#/Vol] 0.4 10 3/uL 0.3-0.[address] [facility] Monocytes/100 WBC Auto (Bld) on 11-26-2023 Monocytes/100 WBC (Bld) 8.4 % 1.7-12.[address] [facility] Neutrophils Auto (Bld) [#/Vo l]on 11-26-2023 Neutrophils (Bld) [#/Vol] 3.4 10 3/uL 1.4-6.[address] [facility] Neutrophils/100 WBC Auto (Bl d)on 11-26-2023 Neutrophils/100 WBC (Bld) 66.7 % 43.0-75.[address] [facility] No Panel Informationon 11-25 Eosinophils # (Auto) 0.2 10 3/uL 0.0-0.7 [facility] Immature Granulocyte # (Auto) 0.00 10 3/uL 0.00-0.[address] [facility] Platelet mean volume Auto (B ld) [Entitic vol]on 11-26-2023 Platelet mean volume (Bld) [Entitic vol] 9.7 fL 9.5-13.[address] [facility] Platelets Auto (Bld) [#/Vol] on 11-26-2023 Platelets (Bld) [#/Vol] 173 10 3/uL 150-[address] [facility] RBC Auto (Bld) [#/Vol]on RBC (Bld) [#/Vol] 4.03 10 6/uL Low 4.20-5.40 [facility] XR femur LT 2V*on 08-21-2022 XR femur LT 2V* [place] [address] XRay Report Signed Patient: Ayana Alves MR#: [id number] : 1940 Acct:[id number] Age/Sex: 82 / F ADM Date: 08/21/22 [place] [facility] [place]: Type: [facility] Attending Dr: Jeb Salas DO Copies to: [...] Pako Sidhu M.D.08/21/2022 3:22 PM Dictation Location: [place] [address] Transcribed By: [facility] 08/21/22 152 Dictated By: Pako Sidhu DO 08/21/22 151 Signed By: 08/21/[address] [facility] XR femur LT 2V* [facility] [id number] Other XR femur LT 2V* [facility] [place] [employer] Other XR femur LT 2V* [address] [facility] No rt [employer] Other XR femur LT 2V* JUDY King [address] [address] [facility] [employer] Other XR femur LT 2V* XRay Report [employer] [id number] Other XR femur LT 2V* Signed [employer] Other XR femur LT 2V* Patient: Ayana Alves MR#: [id number] [employer] Other XR femur LT 2V* 484 [employer] Other XR femur LT 2V* : 1940 Acct:[id number] [employer] Other XR femur LT 2V* Age/Sex: 82 / F ADM Date: 08/21/22 [employer] Other XR femur LT 2V* [place] [facility] [place]: Type: REG CLI [employer] Other XR femur LT 2V* Attending Dr: Jeb Salas DO [employer] Other XR femur LT 2V* Copies to: Jeb Salas DO [employer] Other XR femur LT 2V* Ordering Provider: Jeb Salas DO [employer] Other XR femur LT 2V* Date of Service: 08/21/22 [employer] Other XR femur LT 2V* XR/XR femur LT 2V*: PAIN [employer] Other XR femur LT 2V* 2 views LEFTfemur plain film [employer] Other XR femur LT 2V* COMPARISON: None Nor [employer] Other XR femur LT 2V* HISTORY: LEFT anterior mid back pain for one month [employer] Other XR femur LT 2V* ACUTE FINDINGS:None [employer] Other XR femur LT 2V* DEGENERATIVE CHANGE:Spurring of the hip joints. Adequate joint space. Spurring of the greater [employer] Other XR femur LT 2V* trochanter. Chondrocalcinosis of menisci. [employer] Other XR femur LT 2V* SOFT TISSUE FINDINGS:Unremarkabl e [employer] Other XR femur LT 2V* JOINT EFFUSION:None [employer] Other XR femur LT 2V* POSTOP CHANGES:None [employer] Other XR femur LT 2V* BONE MINERALIZATION:Adequ ate [employer] Other XR femur LT 2V* Calcified fibroid. [facility] [employer] Other XR femur LT 2V* XR/XR femur LT 2V* [employer] Other XR femur LT 2V* IMPRESSION: Mild LEFT hip degeneration. greater trochanter spurring. Chondrocalcinosis of menisci. [employer] Other XR femur LT 2V* Impression dictated by: Pako Sidhu M.D.08/21/2022 3:22 PM [employer] Other XR femur LT 2V* Dictation Location: [place] [address] [employer] Other XR femur LT 2V* Transcribed By: PWS 08/21/22 [facility] [employer] Other XR femur LT 2V* Dictated By: Pako Sidhu DO 08/21/22 [facility] [employer] Other XR femur LT 2V* Signed By: [employer] [facility] [employer] Other XR femur LT 2V* 08/21/22 [facility] [employer] Other XR hip LT min 2V(w/wo pelvis )*on 08-21-2022 XR hip LT min 2V(w/wo pelvis)* [facility] [place] [address] [place] [address] XRay Report Signed Patient: Ayana Alves MR#: [id number] : 1940 Acct:[id number] Age/Sex: 82 / F ADM Date: 08/21/22 [place] [facility] [place] Room: Type: [facility] CLI Attending Dr: Jeb Salas DO Copies to: [...] Pako Sidhu M.D.08/21/2022 3:24 PM Dictation Location: [place] [address] Transcribed By: [facility] 08/21/22 1524 Dictated By: Pako Sidhu DO 08/21/22 1522 Signed By: 08/21/22 [address] [facility] XR hip LT min 2V(w/wo pelvis)* XR/XR hip LT min 2V(w/wo pelvis)*: Acute pain of left hip [employer] Other XR hip LT min 2V(w/wo pelvis)* 2 views LEFT hip single view pelvis plain film [employer] Other XR hip LT min 2V(w/wo pelvis)* HISTORY:LEFT anterior thigh pain for months. [employer] Other XR hip LT min 2V(w/wo pelvis)* DEGENERATIVE CHANGE:Adequate hip joint space. Spurring of the greater trochanter. [employer] Other XR hip LT min 2V(w/wo pelvis)* BONY MINERALIZATION:Adequ ate [employer] Other XR hip LT min 2V(w/wo pelvis)* Degenerative calcified fibroid. Lower lumbar fixation hardware. [employer] Other XR hip LT min 2V(w/wo pelvis)* XR/XR hip LT min 2V(w/wo pelvis)* [employer] Other XR hip LT min 2V(w/wo pelvis)* IMPRESSION:Unremarka ble LEFT hip. The greater trochanter spurring. [employer] Other XR hip LT min 2V(w/wo pelvis)* Impression dictated by: Pako Sidhu M.D.08/21/2022 3:24 PM [employer] Other XR hip LT min 2V(w/wo pelvis)* Transcribed By: PWS 08/21/22 [facility] [employer] Other XR hip LT min 2V(w/wo pelvis)* Dictated By: Pako Sidhu DO 08/21/22 [facility] [employer] Other XR hip LT min 2V(w/wo pelvis)* 08/21/22 [facility] [employer] Other CT HEAD WO CONTRASTon 2021 [...] [facility] [place] Relevant Medical/Surgical History: CT done at [place] FINDINGS: BRAIN/VENTRICLES: There is a small amount [...] Don Rahman MD 04/24/22 Final result Normal [facility] Basic Metab w/rfx MGon 04-15 Anion gap [Moles/Vol] 9 mmol/L Normal 9-17 [facility] Comment on above: Performed By: #### B MPX, CDP #### [facility] F?rsat Bu F?rsat [facility] [place] [address] [employer] Crewmember: Yordan Lr MD Performed By: #### C DP, BMPX ####[facility] [id number] [place] [address] Lab Director: Yordan Lr MD Calcium [Mass/Vol] 9.6 mg/dL Normal 8.6-10.4 [facility] Comment on above: Performed By: #### B MPX, CDP #### [facility] [address] [place] [address] [employer] Crewmember: Yordan Lr MD Performed By: #### C DP, BMPX ####[facility] [id number] [place], [place] [phone] Director: Yordan Lr MD Chloride [Moles/Vol] 107 mmol/L Normal 98-107 [facility] Comment on above: Performed By: #### B MPX, CDP #### [facility] [address] [place] [address] [employer] Crewmember: Yordan Lr MD Performed By: #### C DP, BMPX ####[facility] [id number] [place] [address] Lab Director: Yordan Lr MD CO2 [Moles/Vol] 22 mmol/L Normal 20-31 [facility] Comment on above: Performed By: #### B MPX, CDP #### [facility] [address] [place] [address] [employer]: Yordan Lr MD Performed By: #### C DP, BMPX ####[facility] [address] [place] [address] Lab Director: Yordan Lr MD Creatinine [Mass/Vol] 0.74 mg/dL Normal 0.50-0.90 [facility] Comment on above: Performed By: #### B MPX, CDP #### [facility] [address] [place] [address] [employer]: Yordan Lr MD Performed By: #### C DP, BMPX ####[facility] [address] [place] [address] Lab Director: Yordan Lr MD GFR/1.73 sq M.predicted among non-blacks MDRD (S/P/Bld) [Vol rate/Area] mL/min/{1.73_m2} Normal >60 [facility] Comment on above: Result Comment: [...] Performed By: #### B MPX, CDP #### [facility] F?rsat Bu F[facility]rsat [address] [place] [address] [employer]: Yordan Lr MD Performed By: #### C DP, BMPX ####[facility] [address] [place], [place] [phone] Director: Yordan Lr MD Glucose [Mass/Vol] 89 mg/dL Normal 70-99 [facility] Comment on above: Performed By: #### B MPX, CDP #### [facility] [address] [place] [address] [employer]: Yordan Lr MD Performed By: #### C DP, BMPX ####[address] [phone] Director: Yordan Lr MD Potassium [Moles/Vol] 4.1 mmol/L Normal 3.7-5.3 [facility] Comment on above: Performed By: #### B MPX, CDP #### [address] [place] [address] [employer]: Yordan Lr MD Performed By: #### C DP, BMPX ####[address] [phone] Director: Yordan Lr MD Sodium [Moles/Vol] 138 mmol/L Normal 135-144 [facility] Comment on above: Performed By: #### B MPX, CDP #### [facility] F?rsat Bu F?rsat [facility] [place] [address] [employer]: Yordan Lr MD Performed By: #### C DP, BMPX ####[facility] [address] [place] [address] [phone] Director: Yordan Lr MD Urea nitrogen [Mass/Vol] 16 mg/dL Normal 8-23 [facility] Comment on above: Performed By: #### B MPX, CDP #### [facility] [address] [place] [address] [employer]: Yordan Lr MD Performed By: #### C DP, BMPX ####[facility] [address] [place] [address] Lab Director: Yordan Lr MD Basic Metabolic Panel w/ Ref dequan to MGon 04-15-2022 Anion gap [Moles/Vol] 9 mmol/L 9 - 17 mmol/L [facility] [employer] Calcium [Mass/Vol] 9.6 mg/dL 8.6 - 10. 4 mg/dL [facility] Chloride [Moles/Vol] 107 mmol/L 98 - 10 7 mmol/L [facility] [employer] CO2 [Moles/Vol] 22 mmol/L 20 - 31 mmol/L [facility] Creatinine [Mass/Vol] 0.74 mg/dL 0.50 - 0.90 mg/dL [facility] GFR/1.73 sq M.predicted MDRD (S/P/Bld) [Vol rate/Area] - PINF [facility] Comment on above: Effective Mar 11, 2022 [...] [Mass/Vol] 89 mg/dL 70 - 99 mg/dL [facility] Potassium [Moles/Vol] 4.1 mmol/L 3.7 - 5.3 mmol/L [facility] Sodium [Moles/Vol] 138 mmol/L 135 - 144 mmol/L [facility] Urea nitrogen (BldV) [Mass/Vol] 16 mg/dL 8 - 23 mg/dL [facility] CBC with Auto Differentialon 04-15-2022 Absolute Eos # 0.14 [facility] Absolute Immature Granulocyte [facility] [employer] Absolute Lymph # 1.04 Low [facility] Absolute [place] # 0.58 [facility] Basophils Absolute [facility] Basophils/100 WBC (Bld) 0 % 0 - 2 % [facility] Eosinophils/100 WBC (Bld) 2 % 1 - 4 % [facility] Hematocrit (Bld) [Volume fraction] 37.9 % 36.3 - 47.1 % [facility] Hemoglobin (Bld) [Mass/Vol] 12.7 g/dL 11.9 - 15.1 g/dL [facility] Immature granulocytes/100 WBC (Bld) 0 % 0 [facility] Interpretation and review of laboratory results Abnormal [facility] Lymphocytes/100 WBC (Bld) 18 % Low 24 - 43 % [facility] MCH (RBC) [Entitic mass] 29.7 pg 25.2 - 33.5 pg [facility] MCHC (RBC) [Mass/Vol] 33.5 g/dL 28.4 - 34.8 g/dL [facility] MCV (RBC) [Entitic vol] 88.6 fL 82.6 - 102.9 fL [facility] Monocytes/100 WBC (Bld) 10 % 3 - 12 % [facility] NRBC Automated 0.0 0.0 per 100 WBC [facility] Platelet distribution width (Bld) [Ratio] 12.6 % 11.8 - 14.4 % [facility] Platelet mean volume (Bld) [Entitic vol] 10.0 fL 8.1 - 13.5 fL [facility] Platelets (Bld) [#/Vol] 161 10*3/uL [facility] RBC (Bld) [#/Vol] 4.28 10*6/uL 3.95 - 5.1 1 m/uL [facility] Segmented neutrophils/100 WBC (Bld) 70 % High 36 - 65 % [facility] Segs Absolute 4.10 [facility] WBC (Bld) [#/Vol] 5.9 10*3/uL [facility] CBC with Diffon 04-15-2022 Abs. Basophil <0.03 Normal 0.00-0.20 [facility] Comment on above: Performed By: #### B MPX, CDP #### [place] [address] [employer]: Yordan Lr MD Performed By: #### C DP, BMPX ####[place], [place] [address])[phone] Director: Yordan Lr MD Abs.Imm.Granulocyte <0.03 Normal 0.00-0.30 [facility] Comment on above: Performed By: #### B MPX, CDP #### [place] [address] [employer]: Yordan Lr MD Performed By: #### C DP, BMPX ####[place], [place] [address])[phone] Director: Yordan Lr MD Abs.Neutrophil (Seg) 4.10 k/uL Normal 1.50-8.10 [facility] Comment on above: Performed By: #### B MPX, CDP #### [place] [address] [employer]member: Yordan Lr MD Performed By: #### C DP, BMPX ####[place], [place] [address])[phone] Director: Yordan Lr MD Basophils/100 WBC (Bld) 0 % Normal 0-2 [facility] Comment on above: Performed By: #### B MPX, CDP #### [place] [address] [employer]: Yordan Lr MD Performed By: #### C DP, BMPX ####[place], [place] [address])[phone] Director: Yordan Lr MD Eosinophils (Bld) [#/Vol] 0.14 10*3/uL Normal 0.00-0.44 [facility] Comment on above: Performed By: #### B MPX, CDP #### [address] [address] [employer]member: Yordan Lr MD Performed By: #### C DP, BMPX ####[address] [address] Lab Director: Yordan Lr MD Eosinophils/100 WBC (Bld) 2 % Normal 1-4 [facility] Comment on above: Performed By: #### B MPX, CDP #### [place] [address] [employer]: Yordan Lr MD Performed By: #### C DP, BMPX ####[place] [address] Lab Director: Yordan Lr MD Erythrocyte distribution width (RBC) [Ratio] 12.6 % Normal 11.8-14.4 [facility] Comment on above: Performed By: #### B MPX, CDP #### [place] [address] [employer]: Yordan Lr MD Performed By: #### C DP, BMPX ####[address] [address] Lab Director: Yordan Lr MD Hematocrit (Bld) [Volume fraction] 37.9 % Normal 36.3-47.1 [facility] Comment on above: Performed By: #### B MPX, CDP #### [address] [address] [employer]: Yordan Lr MD Performed By: #### C DP, BMPX ####[address] [address] Lab Director: Yordan Lr MD Hemoglobin (Bld) [Mass/Vol] 12.7 g/dL Normal 11.9-15.1 [facility] Comment on above: Performed By: #### B MPX, CDP #### [facility] [place] [address] [employer]member: Yordan Lr MD Performed By: #### C DP, BMPX ####[facility] [address] [place] [address] [phone] Director: Yordan Lr MD Immature granulocytes/100 WBC (Bld) 0 % Normal 0 [facility] Comment on above: Performed By: #### B MPX, CDP #### [address] [address] [employer]: Yordan Lr MD Performed By: #### C DP, BMPX ####[address] [phone] Director: Yordan Lr MD Lymphocytes (Bld) [#/Vol] 1.04 10*3/uL Low 1.10-3.70 [facility] Comment on above: Performed By: #### B MPX, CDP #### [address] [address] [employer]member: Yordan Lr MD Performed By: #### C DP, BMPX ####[facility] [address] [place] [address] [phone] Director: Yordan Lr MD Lymphocytes/100 WBC (Bld) 18 % Low 24-43 [facility] Comment on above: Performed By: #### B MPX, CDP #### [address] [address] [employer]: Yordan Lr MD Performed By: #### C DP, BMPX ####[facility] [address] [place] [address] Lab Director: Yordan Lr MD MCH (RBC) [Entitic mass] 29.7 pg Normal 25.2-33.5 [facility] Comment on above: Performed By: #### B MPX, CDP #### [address] [address] [employer]member: Yordan Lr MD Performed By: #### C DP, BMPX ####[address] [phone] Director: Yordan Lr MD MCHC (RBC) [Mass/Vol] 33.5 g/dL Normal 28.4-34.8 [facility] Comment on above: Performed By: #### B MPX, CDP #### [address] [address] [employer]member: Yordan Lr MD Performed By: #### C DP, BMPX ####[address] [phone] Director: Yordan Lr MD MCV (RBC) [Entitic vol] 88.6 fL Normal 82.6-102.9 [facility] Comment on above: Performed By: #### B MPX, CDP #### [address] [address] [employer]member: Yordan Lr MD Performed By: #### C DP, BMPX ####[address] [phone] Director: Yordan Lr MD Monocytes (Bld) [#/Vol] 0.58 10*3/uL Normal 0.10-1.20 [facility] Comment on above: Performed By: #### B MPX, CDP #### [address] [address] [employer]member: Yordan Lr MD Performed By: #### C DP, BMPX ####[address] [place], [place] [phone] Director: Yordan Lr MD Monocytes/100 WBC (Bld) 10 % Normal 3-12 [facility] Comment on above: Performed By: #### B MPX, CDP #### [address] [address] [employer]: Yordan Lr MD Performed By: #### C DP, BMPX ####[address] [phone] Director: Yordan Lr MD Neutrophil (Seg) 70 % High 36-65 [facility] Comment on above: Performed By: #### B MPX, CDP #### [address] [address] [employer]member: Yordan Lr MD Performed By: #### C DP, BMPX ####[address] [phone] Director: Yordan Lr MD NRBC Automated 0.0 per [address] [facility] Comment on above: Performed By: #### B MPX, CDP #### [address] [place] [address] [employer]member: Yordan Lr MD Performed By: #### C DP, BMPX ####[address] [phone] Director: Yordan Lr MD Platelet mean volume (Bld) [Entitic vol] 10.0 fL Normal 8.1-13.5 [facility] Comment on above: Performed By: #### B MPX, CDP #### [address] [place] [address] [employer]: Yordan Lr MD Performed By: #### C DP, BMPX ####[address] [phone] Director: Yordan Lr MD Platelets (Bld) [#/Vol] 161 10*3/uL Normal 138-453 [facility] Comment on above: Performed By: #### B MPX, CDP #### [address] [address] [employer]: Yordan Lr MD Performed By: #### C DP, BMPX ####[address] [address] Lab Director: Yordan Lr MD RBC (Bld) [#/Vol] 4.28 10*6/uL Normal 3.95-5.11 [facility] Comment on above: Performed By: #### B MPX, CDP #### [address] [address] [employer]member: Yordan Lr MD Performed By: #### C DP, BMPX ####[address] [address] Lab Director: Yordan Lr MD WBC (Bld) [#/Vol] 5.9 10*3/uL Normal 3.5-11.3 [facility] Comment on above: Performed By: #### B MPX, CDP #### [address] [address] [employer]: Yordan Lr MD Performed By: #### C DP, BMPX ####[address] [address] Lab Director: Yordan Lr MD Drug Scr, Abuse, Uron 2021 Amphetamine(s),Ur Negative Normal NEG [facility] Comment on above: Result Comment: (Positive cutoff 1000 ng/mL) Performed By: #### U AX, RAMA #### [address] [address] [employer]: Yordan Lr MD Barbiturate(s),Ur Negative Normal NEG [facility] Comment on above: Result Comment: (Positive cutoff 200 ng/mL) Performed By: #### U AX, RAMA #### [facility] [address] [place] [address] [employer]: Yordan Lr MD Benzodiazepine(s) Negative Normal NEG [facility] Comment on above: Result Comment: (Positive cutoff 200 ng/mL) Performed By: #### U AX, RAMA #### [facility] [address] [place] [address] [employer]: Yordan Lr MD Cannabinoid(s),Ur Negative Normal NEG [facility] Comment on above: Result Comment: (Positive cutoff 50 ng/mL) Performed By: #### U AX, RAMA #### [facility] [address] [place] [address] [employer]member: Yordan Lr MD Cocaine Metabolite Negative Normal NEG [facility] Comment on above: Result Comment: (Positive cutoff 300 ng/mL) Performed By: #### U AX, RAMA #### [facility] [address] [place] [address] [employer]: Yordan Lr MD Fentanyl, Urine Negative Normal NEG [facility] Comment on above: Result Comment: (Positive cutoff 5 ng/ml) Performed By: #### U AX, RAMA #### [facility] [address] [place] [address] [employer]member: Yordan Lr MD Interpretive Info Assay provides medical screening only. The absence of expected drug(s) and/or Normal [facility] Comment on above: Result Comment: meta bolite(s) may indicate diluted or adulterated urine, limitations of testing or timing of collection. Testing for legal purposes should be confirmed by another method. To request confirmation of test result, please call the lab within 7 days of sample submission. Performed By: #### U AX, RAMA #### [facility] F?rsat Bu F?rsat [address] [place] [address] [employer]: Yordan Lr MD Methadone Ql (U) Negative Normal NEG [facility] Comment on above: Result Comment: (Positive cutoff 300 ng/mL) Performed By: #### U AX, RAMA #### [address] [address] [employer]: Yordan Lr MD Opiate(s), Ur Negative Normal NEG [facility] Comment on above: Result Comment: (Positive cutoff 300 ng/mL) Performed By: #### U AX, RAMA #### [address] [address] [employer]: Yordan Lr MD Oxycodone, Urine Negative Normal NEG [facility] Comment on above: Result Comment: (Positive cutoff 100 ng/mL) Performed By: #### U AX, RAMA #### [address] [address] [employer]: Yordan Lr MD Phencyclidine, Ur Negative Normal NEG [facility] Comment on above: Result Comment: (Positive cutoff 25 ng/mL) Performed By: #### U AX, RAMA #### [address] [address] [employer]: Yordan Lr MD Hemoglobin A1Con 04-15-2022 Glucose [Mass/Vol] 120 mg/dL Normal [facility] Comment on above: Result Comment: The ADA and AACC recommend providing the estimated average glucose result to permit better patient understanding of their HBA1c result. Performed By: #### F T4, TSH, VD25, B12, ERTPF, GLYHGB, ALB ####[facility] [address] [place] [address] Lab Director: Yordan Lr MD Performed By: #### G LYHGB, ALB, ERTPF, B12, FT4, TSH, VD25 ####[facility] [address] [place] [address] Lab Director: Yordan Lr MD HbA1c (Bld) [Mass fraction] 5.8 % Normal 4.0-6.0 [facility] Comment on above: Performed By: #### F T4, TSH, VD25, B12, ERTPF, GLYHGB, ALB ####[facility] [address] [place] [address] Lab Director: Yordan Lr MD Performed By: #### G LYHGB, ALB, ERTPF, B12, FT4, TSH, VD25 ####[facility] [address] [place] [address] Lab Director: Yordan Lr MD Glucose [Mass/Vol] 120 mg/dL [facility] Comment on above: The ADA and AACC rec ommend providing the estimated average glucose result to permit better patient understanding of their HBA1c result. HbA1c (Bld) [Mass fraction] 5.8 % 4.0 - 6.0 % [facility] UA w/Reflex Cultureon 2021 Bilirubin, SemiQt,Ur Negative Normal NEG [facility] Comment on above: Performed By: #### U AX, RAMA #### [address] [address] [employer]member: Yordan Lr MD Blood, Urine Negative Normal NEG [facility] Comment on above: Performed By: #### U AX, RAMA #### [facility] F?rsat Bu F[address]rsat [address] [place] [address] [employer]member: Yordan Lr MD Clarity (U) Clear Normal CLEAR [facility] Comment on above: Performed By: #### U AX, RAMA #### [address] [address] [employer]member: Yordan Lr MD Color (U) Yellow Normal YEL [facility] Comment on above: Performed By: #### U AX, RAMA #### [address] [address] [employer]member: Yordan Lr MD Comment Microscopic exam not performed based on chemical results unless requested in Normal [facility] Comment on above: Result Comment: orig inal order. Performed By: #### U AX, RAMA #### [facility] [address] [place] [address] [employer]member: Yordan Lr MD Glucose Ql (U) Negative Normal NEG [facility] Comment on above: Performed By: #### U AX, RAMA #### [address] [address] [employer]member: Yordan Lr MD Ketones Ql (U) TRACE Abnormal NEG [facility] Comment on above: Performed By: #### U AX, RAMA #### [facility] F?rsat [address] F[address] [place] [address] [employer]: Yordan Lr MD Leukocyte esterase Test strip Ql (U) Negative Normal NEG [facility] Comment on above: Performed By: #### U AX, RAMA #### [facility] F[facility]rs[address] F[address] [place] [address] [employer]member: Yordan Lr MD Nitrite,Ur Negative Normal NEG [facility] Comment on above: Performed By: #### U AX, RAMA #### [facility] F?rs[address] F[address] [place] [address] [employer]: Yordan Lr MD PH,Ur 6.5 Normal 5.0-8.0 [facility] Comment on above: Performed By: #### U AX, RAMA #### [facility] F?rsat [address] F[address] [place] [address] [employer]member: Yordan Lr MD Protein Ql (U) Negative Normal NEG [facility] Comment on above: Performed By: #### U AX, RAMA #### [address] [address] [employer]member: Yordan Lr MD Spec. [place],Ur 1.047 High 1.005-1.030 [facility] Comment on above: Performed By: #### U AX, RAMA #### [address] [address] [employer]member: Yordan Lr MD Urobilinogen,Ur Normal Normal NORM [facility] Comment on above: Performed By: #### U AX, RAMA #### [address] [address] [employer]: Yordan Lr MD Albuminon 04-14-2022 Albumin [Mass/Vol] 4.1 g/dL Normal 3.5-5.2 [facility] Comment on above: Performed By: #### F T4, TSH, VD25, B12, ERTPF, GLYHGB, ALB #### [address] [address] [employer]: Yordan Lr MD Performed By: #### G LYHGB, ALB, ERTPF, B12, FT4, TSH, VD25 #### [address] [address] [employer]: Yordan Lr MD Albumin [Mass/Vol] 4.1 g/dL 3.5 - 5.2 g/dL [facility] CBC AUTO DIFFon 04-14-2022 BASO # 0.0 103/ul Normal 0.0-0.1 [facility] Comment on above: Performed By: #### C BC #### [facility] [address] [place], [place] [address] Dr. Brii Humphries Basophils/100 WBC (Bld) 0.4 % Normal 0.2-2.0 [facility] Comment on above: Performed By: #### C BC #### [facility] [address] [place] [address] Dr. Brii Humphries EO # 0.2 103/ul Normal 0.0-0.7 [facility] Comment on above: Performed By: #### C BC #### [facility] [address] [place] [address] Dr. Brii Humphries Eosinophils/100 WBC (Bld) 2.0 % Normal 0.9-7.0 [facility] Comment on above: Performed By: #### C BC #### [facility] [address] [place] [address] Dr. Brii Humphries Hematocrit (Bld) [Volume fraction] 40.1 % Normal 36.0-48.0 [facility] Comment on above: Performed By: #### C BC #### [facility] [address] [place] [address] Dr. Brii Humphries Hemoglobin (Bld) [Mass/Vol] 13.1 g/dL Normal 12.0-16.0 [facility] Comment on above: Performed By: #### C BC #### [facility] [address] [place] [address] Dr. Brii Humphries IG # 0.02 10e3/ul Normal 0.00-0.03 [facility] Comment on above: Performed By: #### C BC #### [facility] [address] [place] [address] Dr. Brii Humphries IG % 0.3 % Normal 0.0-0.5 [facility] Comment on above: Performed By: #### C BC #### [facility] [address] [place] [address] Dr. Brii Humphries LYMPH # 1.1 103/ul Critically low 1.2-3.8 [facility] Comment on above: Performed By: #### C BC #### [facility] [address] [place] [address] Dr. Brii Humphries Lymphocytes/100 WBC (Bld) 15.0 % Critically low 20.5-60.0 [facility] Comment on above: Performed By: #### C BC #### [facility] [address] [place] [address] Dr. rBii Humphries MANUAL DIFF REQ NO Normal [facility] Comment on above: Performed By: #### C BC #### [facility] [address] [place] [address] Dr. Brii Humphries MCH (RBC) [Entitic mass] 28.8 pg Normal 26.7-34.0 [facility] Comment on above: Performed By: #### C BC #### [facility] [address] [place] [address] Dr. Brii Humphries MCHC (RBC) [Mass/Vol] 32.7 g/dL Normal 29.9-35.2 [facility] Comment on above: Performed By: #### C BC #### [facility] [address] [place] [address] Dr. Brii Humphries MCV (RBC) [Entitic vol] 88.1 fL Normal 81.0-99.0 [facility] Comment on above: Performed By: #### C BC #### [facility] [address] [place] [address] Dr. Brii Humphries MONO # 0.5 103/ul Normal 0.3-0.8 [facility] Comment on above: Performed By: #### C BC #### [facility] [address] [place] [address] Dr. Brii Humphries Monocytes/100 WBC (Bld) 6.6 % Normal 1.7-12.0 [facility] Comment on above: Performed By: #### C BC #### [facility] [address] [place] [address] Dr. Brii Humphries NEUT # 5.6 103/ul Normal 1.4-6.5 [facility] Comment on above: Performed By: #### C BC #### [facility] [address] [place] [address] Dr. Brii Humphries Neutrophils/100 WBC (Bld) 75.7 % Critically high 43.0-75.0 [facility] Comment on above: Performed By: #### C BC #### [facility] [address] [place] [address] Dr. Brii Humphries Platelet mean volume (Bld) [Entitic vol] 9.7 fL Normal 9.5-13.5 [facility] Comment on above: Performed By: #### C BC #### [facility] [address] [place] [address] Dr. Brii Humphries PLT 174 103/ul Normal 150-450 [facility] Comment on above: Performed By: #### C BC #### [facility] [address] [place] [address] Dr. Brii Humphries RBC 4.55 106/ul Normal 4.20-5.40 [facility] Comment on above: Performed By: #### C BC #### [facility] [address] [place] [address] Dr. Brii uHmphries WBC 7.4 103/ul Normal 4.0-11.0 [facility] Comment on above: Performed By: #### C BC #### [facility] [address] [place] [address] CHEST ABDOMEN PELVIS [...] Jesusita Quintanilla MD 04/14/[address] [facility] CT CSPINE WO CONon CT CSPINE WO CON EXAMINATION: CT CSPINE WO CON, [...] SHAHZAD TOMAS Date: 2022-04-14 16:45 Normal [facility] CT FACIAL BONES WO CONon [...] FELIPA HOPPER Date: 2022-04-14 16:48 Normal [facility] CT HEAD WO CONon 04-14-2022 [...] FELIPA HOPPER Date: 2022-04-14 16:43 Normal [facility] CT HEAD WO CONTRASTon 2021 [...] Jayant Rodrigues MD 04/14/[address] [facility] Acute left subdural hematoma overlying the parietooccipital lobes measuring up to 4 mm in thickness with no significant associated mass effect. Critical results were called by Dr. Jayant Martínez to Dr. Cain on 04/14/2022 at 8:16 p.m.. [facility] RIS CONSOLIDATED EXAMINATION: CT [...] of the visualized skull or soft tissues. [facility] Jayant Marcelo MD - 04/14/2022 EXAMINATION: CT OF THE [...] Dr. Cain on 04/14/2022 at 8:16 p.m.. [employer] Phone: Radiology Study observation (narrative) [employer] Phone: CT HEAD WO CONTRASTOrdered B y: Jayant Rodrigues on 04-14-2022 [employer] Phone: CT LUMBAR SPINE TRAUMA RECON STRUCTIONon [...] Jesusita Quintanilla MD 04/14/[address] [facility] CT THORACIC SPINE TRAUMA REC [...] Jesusita Quintanilla MD 04/14/[address] [facility] Covid-19 PCR (CVDTB)on SARS-CoV-2 (COVID-19) RNA LI+probe Ql (Unsp spec) Not detected Normal NOT DETECTED [facility] Comment on above: Result Comment: [...] for this test is supported by the Rnfa of Health and Human Service's declaration that [...] longer be used). Performed By: #### C [facility] #### [facility] [address] [place] [address] Dr. Brii Humphries DRUG SCREEN MULTI URINEon [...] cutoff 100 ng/mL) Phencyclidine, Urine Negative NEGATIVE [facility] Comment on above: (Positive cutoff 25 ng/mL) Test Information Assay provides medical screening only. The absence of expected drug(s) and/or metabolite(s) may indicate diluted or adulterated urine, limitations of testing or timing of collection. [facility] Comment on above: Testing for legal pu rposes should be confirmed by another method. To request confirmation of test result, please call the lab within 7 days of sample submission. [facility] No Panel Informationon 04-14 1. No acute findings within the chest, abdomen common pelvis or within the thoracolumbar spine. 2. Multiple liver lesions measuring up to 8 cm are likely hemangiomas. 3. Calcified uterine fibroids. [facility] RIS CONSOLIDATED EXAMINATION: CT OF THE CHEST, [...] degenerative changes of the upper lumbar spine. [facility] CONSOLIDATED Jesusita Quintanilla MD - [...] are likely hemangiomas. 3. Calcified uterine fibroids. [employer] Work Phone: [facility] [employer] [facility] Rad[facility] Study observation (narrative) [employer] Work Phone: No Panel InformationOrdered By: Jesusita Quintanilla on 04-14-2022 [employer] Work Phone: PROF CHEM 8 (BAS METB)on Potassium [Moles/Vol] 4.1 mmol/L Normal 3.5-5.1 [facility] Comment on above: Performed By: #### B MP #### [facility] [address] [address] [address] Brii Humphries Anion gap [Moles/Vol] 7.5 mmol/L Normal [facility] Comment on above: Performed By: #### B MP #### [facility] [address] [address] [address] Brii Humphries Calcium [Mass/Vol] 10.6 mg/dL Critically high 8.5-10.1 [facility] Comment on above: Performed By: #### B MP #### [facility] [address] [address] [address] Brii Humphries Chloride [Moles/Vol] 106 mmol/L Normal 98-107 [facility] Comment on above: Performed By: #### B MP #### [facility] [address] [address] [address] Brii Humphries CO2 [Moles/Vol] 28.6 mmol/L Normal 21.0-32.0 [facility] Comment on above: Performed By: #### B MP #### [facility] [address] [address] [address] Brii Humphries Creatinine [Mass/Vol] 0.90 mg/dL Normal 0.55-1.02 [facility] Comment on above: Performed By: #### B MP #### [facility] [address] [address] [address] Brii Humphries EGFR-AF LIBYAN >60 Normal >=60 [facility] Comment on above: Performed By: #### B MP #### [facility] [address] [address] [address] Brii Humphries EGFR-NON AF LIBYAN =60 Normal >=60 [facility] Comment on above: Performed By: #### B MP #### [facility] [address] [address] [address] Brii Humphries Glucose [Mass/Vol] 106 mg/dL Normal 74-106 [facility] Comment on above: Performed By: #### B MP #### [facility] [address] [place] [address] Dr. Brii Humphries Sodium [Moles/Vol] 138 mmol/L Normal 136-145 [facility] Comment on above: Performed By: #### B MP #### [facility] [address] [place] [address] Dr. Brii Humphries Urea nitrogen [Mass/Vol] 22.0 mg/dL Critically high 7.0-18.0 [facility] Comment on above: Performed By: #### B MP #### [facility] [address] [place] [address] Dr. Brii Humphries Urea nitrogen/Creatinine [Mass ratio] 24.4 mg/mg Normal [facility] Comment on above: Performed By: #### B MP #### [facility] [address] [place] [address] Dr. Brii Humphries PROTIMEon 04-14-2022 PT Coag (PPP) [Time] 10.9 s Normal 9.0-11.6 [facility] Comment on above: Performed By: #### P TT, PT #### [facility] [address] [place] [address] Dr. Brii Humphries INR Coag (PPP) [Relative time] 1.01 {INR} Normal [facility] Comment on above: Performed By: #### P TT, PT #### [facility] [address] [place] [address] Dr. Brii Humphries INR GUIDELINES SEE BELOW Normal [facility] Comment on above: Result Comment: RAMSEY RED INR: 2.0 - 3.0 CONDITIONS NOT LISTED BELOW 2.5 - 3.5 FOR PROSTHETIC HEART VALVE REPLACEMENT 2.5 - 3.5 RECURRENT THROMBOSIS Performed By: #### P TT, PT #### [facility] [address] [place] [address] Dr. Brii Humphries PTTon 04-14-2022 aPTT Coag (Bld) [Time] 29.1 s Normal 22.3-36.2 [facility] Comment on above: Performed By: #### P TT, PT #### [facility] [address] [place], [place] [address] Dr. Brii Humphries T4, Freeon 04-14-2022 Thyroxine, Free 1.18 ng/dL 0.93 - 1.70 ng/dL [facility] TROPONIN, HIGH SENSITIVITYon 04-14-2022 HSTROP 12.5 pg/mL Normal 4.0-51.3 [facility] Comment on above: Result Comment: CUT- OFF POINTS HAVE BEEN ESTABLISHED BASED ON THE FOURTH UNIVERSAL DEFINITIONS OF MYOCARDIAL INFARCTION. THE UPPER REFERENCE LIMIT (URL) OF TROPONIN, DEFINED THE 99TH PERCENTILE OF cTnI DISTRIBUTION IN A REFERENCE POPULATION, HAS BEEN CONFIRMED THE DECISION THRESHOLD FOR UT DIAGNOSIS. Performed By: #### H STROPN ####[facility] [address] [place], [place] [address]YxDr. Brii Humphries TSHon 04-14-2022 TSH Qn 3.10 m[IU]/L [facility] [employer] TYPE AND SCREENon 04-14-2022 ABO/Rh Positive [facility] Arm Band Number [place] [id number] [facility] [employer] [facility] [employer] Expiration Date 04/17/2022,2359 [facility] Thyroid Stim. Horm.on 2021 Thyroid Stim. Horm. 3.10 uIU/mL Normal 0.30-5.00 [facility] Comment on above: Performed By: #### F T4, TSH, VD25, B12, ERTPF, GLYHGB, ALB ####[facility] [address] [place], [place] [id number] Lab Director: Yoradn Lr MD Performed By: #### G LYHGB, ALB, ERTPF, B12, FT4, TSH, VD25 #### [facility] [address] [place], [place] [id number] [employer] Crewmember: Yordan Lr MD Thyroxine, Freeon 04-14-2022 Thyroxine, Free 1.18 ng/dL Normal 0.93-1.70 [facility] Comment on above: Performed By: #### F T4, TSH, VD25, B12, ERTPF, GLYHGB, ALB ####[facility] [address] [place], [place] [id number] Lab Director: Yordan Lr MD Performed By: #### G LYHGB, ALB, ERTPF, B12, FT4, TSH, VD25 #### [facility] [address] [place], [place] [id number] [employer]member: Yordan Lr MD Trauma Panelon 04-14-2022 Anion gap [Moles/Vol] 13 mmol/L 9 - 17 mmol/L [facility] [employer] aPTT Coag (Bld) [Time] 24.8 s [facility] [employer] Comment on above: IV Heparin Therapy Range: 48.6-77.8 Blood Bank Specimen BILL FOR SERVICES PERFORMED [facility] [employer] Carboxyhemoglobin 5.6 % High 0 - 5 % [facility] [employer] Comment on above: Reference Range: Non-Smokers 0-2% Average Smoker 2-4% Heavy Smoker <10% Chloride [Moles/Vol] 103 mmol/L 98 - 10 7 mmol/L [facility] [employer] CO2 [Moles/Vol] 17 mmol/L Low 20 - 31 mmol/L [facility] [employer] Creatinine [Mass/Vol] 0.71 mg/dL 0.50 - 0.90 mg/dL [facility] Ethanol [Mass/Vol] mg/dL NINF - 10 mg/dL [facility] Ethanol percent <0.010 NINF - 0.010 % [facility] [employer] FIO2 INFORMATION NOT PROVIDED [facility] [employer] GFR/1.73 sq M.predicted MDRD (S/P/Bld) [Vol rate/Area] - PINF [employer] Comment on above: Effective Mar 11, 2022 [...] 104 mg/dL High 70 - 99 mg/dL [facility] hCG Qual Negative NEGATIVE [facility] Comment on above: Specimens with hCG l evels near the threshold of the test (25 mIU/mL) may give a negative or indeterminate result. In such cases, another test should be performed with a new specimen in 48-72 hours. If early is suspected clinically in this setting, correlation with quantitative serum b-hCG level is suggested. [employer] has confirmed the use of plasma for this test. This has not been cleared or approved by the U.S. Food and Drug Administration. The FDA has determined that such clearance is not necessary. HCO3 (Bld) [Moles/Vol] 20.1 mmol/L Low 24 - 30 mmol/L [facility] Hematocrit (Bld) [Volume fraction] 40.9 % 36.3 - 47.1 % [facility] Hemoglobin (Bld) [Mass/Vol] 13.6 g/dL 11.9 - 15.1 g/dL [facility] INR Coag (Bld) [Relative time] 1.0 {INR} [facility] Comment on above: Therapeutic Range: Moderate Anticoagulant Intensity: INR = 2.0-3.0 High Anticoagulant Intensity: INR = 2.5-3.5 Interpretation and review of laboratory results Abnormal [facility] MCH (RBC) [Entitic mass] 29.6 pg 25.2 - 33.5 pg [facility] MCHC (RBC) [Mass/Vol] 33.3 g/dL 28.4 - 34.8 g/dL [facility] MCV (RBC) [Entitic vol] 89.1 fL 82.6 - 102.9 fL [facility] Negative Base Excess, Uri 1.3 mmol/L 0.0 - 2.0 mmol/L [facility] NRBC Automated 0.0 0.0 per 100 WBC [facility] Oxygen saturation in Blood 97.0 % High 60.0 - 85.0 % [facility] pCO2, Uri 26.1 Low [facility] pH, Uri 7.499 High 7.320 - 7.420 [facility] Platelet distribution width (Bld) [Ratio] 12.5 % 11.8 - 14.4 % [facility] Platelet mean volume (Bld) [Entitic vol] 9.8 fL 8.1 - 13.5 fL [facility] Platelets (Bld) [#/Vol] 162 10*3/uL [facility] pO2, Uri 74.5 High [facility] Pt Temp 37.0 [facility] RBC (Bld) [#/Vol] 4.59 10*6/uL 3.95 - 5.1 1 m/uL [facility] Sodium [Moles/Vol] 133 mmol/L Low 135 - 144 mmol/L [facility] Urea nitrogen (BldV) [Mass/Vol] 19 mg/dL 8 - 23 mg/dL [facility] WBC (Bld) [#/Vol] 7.8 10*3/uL [facility] Trauma Profileon 04-14-2022 Anion gap [Moles/Vol] 13 mmol/L Normal 9-17 [facility] Comment on above: Performed By: #### F T4, TSH, VD25, B12, ERTPF, GLYHGB, ALB ####[employer] [place] [address] [facility] Director: Yordan Lr MD Performed By: #### G LYHGB, ALB, ERTPF, B12, FT4, TSH, VD25 #### [employer] [address] [place] [address] [employer] Crewmember: Yordan Lr MD Chloride [Moles/Vol] 103 mmol/L Normal 98-107 [facility] Comment on above: Performed By: #### F T4, TSH, VD25, B12, ERTPF, GLYHGB, ALB ####[employer] [place] [address] Lab Director: Yordan Lr MD Performed By: #### G LYHGB, ALB, ERTPF, B12, FT4, TSH, VD25 #### [address] [address] [employer]member: Yordan Lr MD CO2 [Moles/Vol] 17 mmol/L Low 20-31 [facility] Comment on above: Performed By: #### F T4, TSH, VD25, B12, ERTPF, GLYHGB, ALB ####[address] [address] Lab Director: Yordan Lr MD Performed By: #### G LYHGB, ALB, ERTPF, B12, FT4, TSH, VD25 #### [address] [address] [employer] Crewmember: Yordan Lr MD Creatinine [Mass/Vol] 0.71 mg/dL Normal 0.50-0.90 [facility] Comment on above: Performed By: #### F T4, TSH, VD25, B12, ERTPF, GLYHGB, ALB ####[address] [address] Lab Director: Yordan Lr MD Performed By: #### G LYHGB, ALB, ERTPF, B12, FT4, TSH, VD25 #### [address] [address] [employer]member: Yordan Lr MD Ethanol [Mass/Vol] mg/dL Normal <10 [facility] Comment on above: Performed By: #### F T4, TSH, VD25, B12, ERTPF, GLYHGB, ALB ####[address] [address] Lab Director: Yordan Lr MD Performed By: #### G LYHGB, ALB, ERTPF, B12, FT4, TSH, VD25 #### [address] [address] [employer]member: Yordan Lr MD Ethanol percent <0.010 Normal <0.010 [facility] Comment on above: Performed By: #### F T4, TSH, VD25, B12, ERTPF, GLYHGB, ALB ####[address] [address] Lab Director: Yordan Lr MD Performed By: #### G LYHGB, ALB, ERTPF, B12, FT4, TSH, VD25 #### [address] [address] [employer] Crewmember: Yordan Lr MD GFR/1.73 sq M.predicted among non-blacks MDRD (S/P/Bld) [Vol rate/Area] mL/min/{1.73_m2} Normal >60 [facility] Comment on above: Result Comment: [...] T4, TSH, VD25, B12, ERTPF, GLYHGB, ALB ####[address] [address] Lab Director: Yordan Lr MD Performed By: #### G LYHGB, ALB, ERTPF, B12, FT4, TSH, VD25 #### [facility] F?rsat Bu F?rsat [facility] [place] [address] [employer]member: Yordan Lr MD Glucose [Mass/Vol] 104 mg/dL High 70-99 [facility] Comment on above: Performed By: #### F T4, TSH, VD25, B12, ERTPF, GLYHGB, ALB ####[address] [address] Lab Director: Yordan Lr MD Performed By: #### G LYHGB, ALB, ERTPF, B12, FT4, TSH, VD25 #### [address] [address] [employer] Crewmember: Yordan Lr MD Potassium [Moles/Vol] 4.1 mmol/L Normal 3.7-5.3 [facility] Comment on above: Performed By: #### F T4, TSH, VD25, B12, ERTPF, GLYHGB, ALB ####[address] [address] Lab Director: Yordan Lr MD Performed By: #### G LYHGB, ALB, ERTPF, B12, FT4, TSH, VD25 #### [address] [address] [employer]member: Yordan Lr MD Sodium [Moles/Vol] 133 mmol/L Low 135-144 [facility] Comment on above: Performed By: #### F T4, TSH, VD25, B12, ERTPF, GLYHGB, ALB ####[address] [address] Lab Director: Yordan Lr MD Performed By: #### G LYHGB, ALB, ERTPF, B12, FT4, TSH, VD25 #### [address] [address] [employer]member: Yordan Lr MD Urea nitrogen [Mass/Vol] 19 mg/dL Normal 8-23 [facility] Comment on above: Performed By: #### F T4, TSH, VD25, B12, ERTPF, GLYHGB, ALB ####[address] [address] Lab Director: Yordan Lr MD Performed By: #### G LYHGB, ALB, ERTPF, B12, FT4, TSH, VD25 #### [facility] F?rsat Bu F?rsat [address] [place] [address] [employer]member: Yordan Lr MD Body Temp. 37.[address] [facility] Comment on above: Performed By: #### F T4, TSH, VD25, B12, ERTPF, GLYHGB, ALB ####[facility] [address] [place] [address] Lab Director: Yordan Lr MD Performed By: #### G LYHGB, ALB, ERTPF, B12, FT4, TSH, VD25 #### [facility] [address] [place] [address] [employer]member: Yordan Lr MD Carboxy Hgb 5.6 % High 0-5 [facility] Comment on above: Result Comment: Reference Range: Non-Smokers 0-2% Average Smoker 2-4% Heavy Smoker <10% Performed By: #### F T4, TSH, VD25, B12, ERTPF, GLYHGB, ALB ####[facility] [address] [place] [address] Lab Director: Yordan Lr MD Performed By: #### G LYHGB, ALB, ERTPF, B12, FT4, TSH, VD25 #### [facility] F?rsat [address] F?[address] [place] [address] [employer] Crewmember: Yordan Lr MD FIO2 INFORMATION NOT PROVIDED Normal [facility] Comment on above: Performed By: #### F T4, TSH, VD25, B12, ERTPF, GLYHGB, ALB ####[facility] [address] [place] [address] Lab Director: Yordan Lr MD Performed By: #### G LYHGB, ALB, ERTPF, B12, FT4, TSH, VD25 #### [facility] F?rsat [address] F[address] [place] [address] [employer]member: Yordan Lr MD HCO3 (Bld) [Moles/Vol] 20.1 mmol/L Low 24-30 [facility] Comment on above: Performed By: #### F T4, TSH, VD25, B12, ERTPF, GLYHGB, ALB ####[address] [address] [facility] Director: Yordan Lr MD Performed By: #### G LYHGB, ALB, ERTPF, B12, FT4, TSH, VD25 #### [address] [address] [employer]member: Yordan Lr MD Negative Base Excess 1.3 mmol/L Normal 0.0-2.0 [facility] Comment on above: Performed By: #### F T4, TSH, VD25, B12, ERTPF, GLYHGB, ALB ####[address] [address] [facility] Director: Yordan Lr MD Performed By: #### G LYHGB, ALB, ERTPF, B12, FT4, TSH, VD25 #### [address] [address] [employer] Crewmember: Yordan rL MD Oxygen saturation in Blood 97.0 % High 60.0-85.0 [facility] Comment on above: Performed By: #### F T4, TSH, VD25, B12, ERTPF, GLYHGB, ALB ####[address] [address] Lab Director: Yordan Lr MD Performed By: #### G LYHGB, ALB, ERTPF, B12, FT4, TSH, VD25 #### [address] [address] [employer]member: Yordan Lr MD pCO2 26.1 mm Hg Low 39-55 [facility] Comment on above: Performed By: #### F T4, TSH, VD25, B12, ERTPF, GLYHGB, ALB ####[address] [address] Lab Director: Yordan Lr MD Performed By: #### G LYHGB, ALB, ERTPF, B12, FT4, TSH, VD25 #### [address] [address] [employer]member: Yordan Lr MD pH (Bld) 7.499 [pH] High 7.320-7.420 [facility] Comment on above: Performed By: #### F T4, TSH, VD25, B12, ERTPF, GLYHGB, ALB ####[address] [address] Lab Director: Yordan Lr MD Performed By: #### G LYHGB, ALB, ERTPF, B12, FT4, TSH, VD25 #### [address] [address] [employer] Crewmember: Yordan Lr MD pO2 74.5 mm Hg High 30-50 [facility] Comment on above: Performed By: #### F T4, TSH, VD25, B12, ERTPF, GLYHGB, ALB ####[address] [address] Lab Director: Yordan Lr MD Performed By: #### G LYHGB, ALB, ERTPF, B12, FT4, TSH, VD25 #### [address] [address] [employer]member: Yordan Lr MD HCG Screen, Blood Negative Normal NEG [facility] Comment on above: Result Comment: Spec imens with hCG levels near the threshold of the test (25 mIU/mL) may give a negative or indeterminate result. In such cases, another test should be performed with a new specimen in 48-72 hours. If early is suspected clinically in this setting, correlation with quantitative serum b-hCG level is suggested. [facility] has confirmed the use of plasma for this test. This has not been cleared or approved by the U.S. Food and Drug Administration. The FDA has determined that such clearance is not necessary. Performed By: #### F T4, TSH, VD25, B12, ERTPF, GLYHGB, ALB ####[place] [address] Lab Director: Yordan Lr MD Performed By: #### G LYHGB, ALB, ERTPF, B12, FT4, TSH, VD25 #### [place] [id number] [employer]: Yordan Lr MD aPTT Coag (Bld) [Time] 24.8 s Normal 20.5-30.5 [facility] Comment on above: Result Comment: IV Heparin Therapy Range: 48.6-77.8 Performed By: #### F T4, TSH, VD25, B12, ERTPF, GLYHGB, ALB ####[place] [address] Lab Director: Yordan Lr MD Performed By: #### G LYHGB, ALB, ERTPF, B12, FT4, TSH, VD25 #### [place] [address] [employer]: Yordan Lr MD INR Coag (PPP) [Relative time] 1.0 {INR} Normal [facility] Comment on above: Result Comment: Therapeutic Range: Moderate Anticoagulant Intensity: INR = 2.0-3.0 High Anticoagulant Intensity: INR = 2.5-3.5 Performed By: #### F T4, TSH, VD25, B12, ERTPF, GLYHGB, ALB ####[place] [address] Lab Director: Yordan Lr MD Performed By: #### G LYHGB, ALB, ERTPF, B12, FT4, TSH, VD25 #### [place] [address] [employer]: Yordan Lr MD PT Coag (PPP) [Time] 10.9 s Normal 9.1-12.3 [facility] Comment on above: Performed By: #### F T4, TSH, VD25, B12, ERTPF, GLYHGB, ALB ####[address] [address] Lab Director: Yordan Lr MD Performed By: #### G LYHGB, ALB, ERTPF, B12, FT4, TSH, VD25 #### [address] [address] [employer]: Yordan Lr MD Erythrocyte distribution width (RBC) [Ratio] 12.5 % Normal 11.0-15.0 [facility] Comment on above: Performed By: #### F T4, TSH, VD25, B12, ERTPF, GLYHGB, ALB ####[address] [address] Lab Director: Yordan Lr MD Performed By: #### G LYHGB, ALB, ERTPF, B12, FT4, TSH, VD25 #### [facility] F?rsat Bu F?rsat [address] [place] [address] [employer]: Yordan Lr MD Performed By: #### C BC #### [facility] [address] [place] [address] Dr. Brii Humphries Hematocrit (Bld) [Volume fraction] 40.9 % Normal 36.3-47.1 [facility] Comment on above: Performed By: #### F T4, TSH, VD25, B12, ERTPF, GLYHGB, ALB ####[address] [address] Lab Director: Yordan Lr MD Performed By: #### G LYHGB, ALB, ERTPF, B12, FT4, TSH, VD25 #### [facility] [address] [address] [employer]: Yordan Lr MD Hemoglobin (Bld) [Mass/Vol] 13.6 g/dL Normal 11.9-15.1 [facility] Comment on above: Performed By: #### F T4, TSH, VD25, B12, ERTPF, GLYHGB, ALB ####[address] [address] Lab Director: Yordan Lr MD Performed By: #### G LYHGB, ALB, ERTPF, B12, FT4, TSH, VD25 #### [address] [address] [employer]: Yordan Lr MD MCH (RBC) [Entitic mass] 29.6 pg Normal 25.2-33.5 [facility] Comment on above: Performed By: #### F T4, TSH, VD25, B12, ERTPF, GLYHGB, ALB ####[address] [address] Lab Director: Yordan Lr MD Performed By: #### G LYHGB, ALB, ERTPF, B12, FT4, TSH, VD25 #### [address] [address] [employer]: Yordan Lr MD MCHC (RBC) [Mass/Vol] 33.3 g/dL Normal 28.4-34.8 [facility] Comment on above: Performed By: #### F T4, TSH, VD25, B12, ERTPF, GLYHGB, ALB ####[address] [address] Lab Director: Yordan Lr MD Performed By: #### G LYHGB, ALB, ERTPF, B12, FT4, TSH, VD25 #### [address] [address] [employer]: Yordan Lr MD MCV (RBC) [Entitic vol] 89.1 fL Normal 82.6-102.9 [facility] Comment on above: Performed By: #### F T4, TSH, VD25, B12, ERTPF, GLYHGB, ALB ####[address] [address] Lab Director: Yordan Lr MD Performed By: #### G LYHGB, ALB, ERTPF, B12, FT4, TSH, VD25 #### [address] [address] [employer]: Yordan Lr MD NRBC Automated 0.0 per [address] [facility] Comment on above: Performed By: #### F T4, TSH, VD25, B12, ERTPF, GLYHGB, ALB ####[place], [place] [address])[phone] Director: Yordan Lr MD Performed By: #### G LYHGB, ALB, ERTPF, B12, FT4, TSH, VD25 #### [place] [address] [employer]: Yordan Lr MD Platelet mean volume (Bld) [Entitic vol] 9.8 fL Normal 8.1-13.5 [facility] Comment on above: Performed By: #### F T4, TSH, VD25, B12, ERTPF, GLYHGB, ALB ####[address] [phone] Director: Yordan Lr MD Performed By: #### G LYHGB, ALB, ERTPF, B12, FT4, TSH, VD25 #### [address] [address] [employer]: Yordan Lr MD Platelets (Bld) [#/Vol] 162 10*3/uL Normal 138-453 [facility] Comment on above: Performed By: #### F T4, TSH, VD25, B12, ERTPF, GLYHGB, ALB ####[address] [address] Lab Director: Yordan Lr MD Performed By: #### G LYHGB, ALB, ERTPF, B12, FT4, TSH, VD25 #### [address] [address] [employer]: Yordan Lr MD RBC (d) [#/Vol] 4.59 10*6/uL Normal 3.95-5.11 [facility] Comment on above: Performed By: #### F T4, TSH, VD25, B12, ERTPF, GLYHGB, ALB ####[address] [address] [facility] Director: Yordan Lr MD Performed By: #### G LYHGB, ALB, ERTPF, B12, FT4, TSH, VD25 #### [address] [address] [employer]: Yordan Lr MD WBC (Bld) [#/Vol] 7.8 10*3/uL Normal 3.5-11.3 [facility] Comment on above: Performed By: #### F T4, TSH, VD25, B12, ERTPF, GLYHGB, ALB ####[address] [address] Lab Director: Yordan Lr MD Performed By: #### G LYHGB, ALB, ERTPF, B12, FT4, TSH, VD25 #### [address] [address] [employer]member: Yordan Lr MD Blood Bank BILL FOR SERVICES PERFORMED Normal [facility] Comment on above: Performed By: #### F T4, TSH, VD25, B12, ERTPF, GLYHGB, ALB ####[facility] [address] [place] [address] Lab Director: Yordan Lr MD Performed By: #### G LYHGB, ALB, ERTPF, B12, FT4, TSH, VD25 #### [facility] [address] [place], [place] [id number] [employer]: Yordan Lr MD Type + Screenon 04-14-2022 Type + Screen Sample Expiration 04/17/2022,2359 Arm Band Number BE [id number] ABO/Rh(D) A POSITIVE Antibody Screen NEGATIVE Normal [facility] Comment on above: Performed By: #### T YS #### [facility] [address] [place] [address] [employer]: Yordan Lr MD Performed By: #### T YS ####[facility] CenterCytogel PharmaMbkaytwpxrrx6984 [place] [address] Lab Director: Yordan Lr MD Urinalysis with Reflex to Cu ltureon 04-14-2022 Bilirubin Urine Negative NEGATIVE [facility] Color, UA Yellow Yellow [facility] Glucose, Ur Negative NEGATIVE [facility] Interpretation and review of laboratory results Abnormal [facility] Ketones Ql (U) TRACE Abnormal NEGATIVE [facility] Leukocyte esterase Test strip Ql (U) Negative NEGATIVE [facility] Nitrite, Urine Negative NEGATIVE [facility] pH, UA 6.5 5.0 - 8.0 [facility] Protein, UA Negative NEGATIVE [facility] Specific [place], UA 1.047 High 1.005 - 1.030 [facility] Turbidity UA Clear Clear [facility] Urinalysis Comments Microscopic exam not performed based on chemical results unless requested in original order. [facility] Urine Hgb Negative NEGATIVE [facility] Urobilinogen, Urine Normal Normal [facility] Vitamin B12on 04-14-2022 Cobalamin (Vitamin B12) [Mass/Vol] 721 pg/mL Normal 232-1245 [facility] Comment on above: Performed By: #### F T4, TSH, VD25, B12, ERTPF, GLYHGB, ALB ####[facility] CenterCytogel PharmaZqkixrtinzir9532 [place], [place] [id number] Lab Director: Yordan Lr MD Performed By: #### G LYHGB, ALB, ERTPF, B12, FT4, TSH, VD25 #### [facility] [address] [place] [address] [id number] [employer]: Yordan Lr MD Cobalamin (Vitamin B12) [Mass/Vol] 721 pg/mL 232 - 1245 pg/mL [facility] Vitamin D 25 Hydroxyon 04-14 Vit D, 25-Hydroxy 33.6 ng/mL 29.9 - PIN F ng/mL [facility] Comment on above: Reference Range: Vitamin D status Range Deficiency <20 ng/mL Mild Deficiency 20-30 ng/mL Sufficiency 30-100 ng/mL Toxicity >100 ng/mL [facility] Vitamin D 25 OHon 04-14-2022 Vitamin D 25 OH 33.6 ng/mL Normal >29.9 [facility] Comment on above: Result Comment: Reference Range: Vitamin D status Range Deficiency <20 ng/mL Mild Deficiency 20-30 ng/mL Sufficiency 30-100 ng/mL Toxicity >100 ng/mL Performed By: #### F T4, TSH, VD25, B12, ERTPF, GLYHGB, ALB ####[facility] CenterCytogel PharmaAwbfzfizgmtd7316 [place], [place] [id number] lab Director: Yordan Lr MD Performed By: #### G LYHGB, ALB, ERTPF, B12, FT4, TSH, VD25 ####[facility] CenterCytogel PharmaDutcbdypmigh8445 [place], [place] [id number] Lab Director: Yordan Lr MD XR HAND [...] MANUEL KOCH Date: 2022-04-14 16:53 Normal [facility] PTH INTACTon 04-11-2022 PTH, Intact 37 pg/mL Normal 15-65 [facility] Comment on above: Performed By: #### P THINT #### [facility] [address] [address] [address] Brii Humphries CBC AUTO DIFFon 04-09-2022 BASO # 0.0 103/ul Normal 0.0-0.1 [facility] Comment on above: Performed By: #### C BC ####[facility] [address] [address]Dr. Brii Humphries Basophils/100 WBC (Bld) 0.6 % Normal 0.2-2.0 [facility] Comment on above: Performed By: #### C BC ####[facility] [address] [address]DrChi Humphries EO # 0.2 103/ul Normal 0.0-0.7 [facility] Comment on above: Performed By: #### C BC ####[facility] [address] [phone] Humphries Eosinophils/100 WBC (Bld) 4.4 % Normal 0.9-7.0 [facility] Comment on above: Performed By: #### C BC ####[facility] [address] [address]Dr. Brii Humphries Erythrocyte distribution width (RBC) [Ratio] 12.7 % Normal 11.0-15.0 [facility] Comment on above: Performed By: #### C BC ####[facility] [address] [address]DrChi Humphries Hematocrit (Bld) [Volume fraction] 40.5 % Normal 36.0-48.0 [facility] Comment on above: Performed By: #### C BC ####[facility] [address] [id number]. Brii Humphries Hemoglobin (Bld) [Mass/Vol] 13.0 g/dL Normal 12.0-16.0 [facility] Comment on above: Performed By: #### C BC ####[facility] [address] [id number]. Brii Humphries IG # 0.01 10e3/ul Normal 0.00-0.03 [facility] Comment on above: Performed By: #### C BC ####[facility] [address] [place], [place] [address]Dr. Brii Humphries IG % 0.2 % Normal 0.0-0.5 [facility] Comment on above: Performed By: #### C BC ####[facility] C[address] [place], [place] [address]Dr. Brii Humphries LYMPH # 1.2 103/ul Normal 1.2-3.8 [facility] Comment on above: Performed By: #### C BC ####[facility] [address] [place], [place] [address]Dr. Brii Humphries Lymphocytes/100 WBC (Bld) 24.3 % Normal 20.5-60.0 [facility] Comment on above: Performed By: #### C BC ####[facility] [address] [place], [place] [address]Dr. Brii Humphries MANUAL DIFF REQ NO Normal [facility] Comment on above: Performed By: #### C BC ####[facility] [address] [place], [place] [address]Dr. Brii Humphries MCH (RBC) [Entitic mass] 28.7 pg Normal 26.7-34.0 [facility] Comment on above: Performed By: #### C BC ####[facility] [address] [place], [place] [address]Dr. Brii Humphries MCHC (RBC) [Mass/Vol] 32.1 g/dL Normal 29.9-35.2 [facility] Comment on above: Performed By: #### C BC ####[facility] [address] [id number]. Brii Humphries MCV (RBC) [Entitic vol] 89.4 fL Normal 81.0-99.0 [facility] Comment on above: Performed By: #### C BC ####[facility] [address] [phone]. Brii Humphries MONO # 0.4 103/ul Normal 0.3-0.8 [facility] Comment on above: Performed By: #### C BC ####[facility] T[address] [place], [place] [address]Dr. Brii Humphries Monocytes/100 WBC (Bld) 7.8 % Normal 1.7-12.0 [facility] Comment on above: Performed By: #### C BC ####[facility] [address] [place], [place] [address]Dr. Brii Humphries NEUT # 3.1 103/ul Normal 1.4-6.5 [facility] Comment on above: Performed By: #### C BC ####[facility] [address] [place], [place] [address]Dr. Brii Humphries Neutrophils/100 WBC (Bld) 62.7 % Normal 43.0-75.0 [facility] Comment on above: Performed By: #### C BC ####[facility] [address] [place], [place] [address]Dr. Brii Humphries Platelet mean volume (Bld) [Entitic vol] 10.1 fL Normal 9.5-13.5 [facility] Comment on above: Performed By: #### C BC ####[facility] [address] [place], [place] [address]Dr. Brii Humphries PLT 199 103/ul Normal 150-450 [facility] Comment on above: Performed By: #### C BC ####[facility] [address] [place], [place] [address]Dr. Brii Humphries RBC 4.53 106/ul Normal 4.20-5.40 [facility] Comment on above: Performed By: #### C BC ####[facility] [address] [id number]. Brii Humphries WBC 5.0 103/ul Normal 4.0-11.0 [facility] Comment on above: Performed By: #### C BC ####[facility] [address] [address]Dr. Brii Humphries PROF CHEM 8 (BAS METB)on Anion gap [Moles/Vol] 9.9 mmol/L Normal [facility] Comment on above: Performed By: #### T SH, BMP ####[facility] [address] [phone]. Brii Humphries Calcium [Mass/Vol] 10.3 mg/dL Critically high 8.5-10.1 [facility] Comment on above: Performed By: #### T SH, BMP ####[facility] [address] [place], [place] [address]Dr. Brii Humphries Chloride [Moles/Vol] 105 mmol/L Normal 98-107 [facility] Comment on above: Performed By: #### T SH, BMP ####[facility] [address] [place], [place] [address]Dr. Brii Humphries CO2 [Moles/Vol] 31.8 mmol/L Normal 21.0-32.[address] [facility] Comment on above: Performed By: #### T SH, BMP ####[facility] [address] [place], [place] [address]Dr. Brii Humphries Creatinine [Mass/Vol] 0.80 mg/dL Normal 0.55-1.02 [facility] Comment on above: Performed By: #### T SH, BMP ####[facility] [address] [id number]. Brii Yandel EGFR-AF LIBYAN >60 Normal >=[address] [facility] Comment on above: Performed By: #### T SH, BMP ####[facility] [address] [id number]. Brii Humphries EGFR-NON AF LIBYAN >60 Normal >=60 [facility] Comment on above: Performed By: #### T SH, BMP ####[facility] [address] [address]Dr. Brii Humphries Glucose [Mass/Vol] 109 mg/dL Critically high 74-106 [facility] Comment on above: Performed By: #### T RICH, BMP ####[facility] [address] [address]Dr. Brii Humphries Potassium [Moles/Vol] 4.7 mmol/L Normal 3.5-5.1 [facility] Comment on above: Performed By: #### T RICH, BMP ####[facility] [address] [address]Dr. Brii Humphries Sodium [Moles/Vol] 142 mmol/L Normal 136-145 [facility] Comment on above: Performed By: #### T RICH, BMP ####[facility] [address] [place], [place] [address]Dr. Brii Humphries Urea nitrogen [Mass/Vol] 22.0 mg/dL Critically high 7.0-18.0 [facility] Comment on above: Performed By: #### T RICH, BMP ####[facility] [address] [address]Dr. Brii Humphries Urea nitrogen/Creatinine [Mass ratio] 27.5 mg/mg Normal [facility] Comment on above: Performed By: #### T RICH, BMP ####[facility] [address] [place], [place] [address]Dr. Brii Humphries TSHon 04-09-2022 TSH 2.719 uIU/mL Normal 0.358-3.740 [facility] Comment on above: Performed By: #### T RICH, BMP ####[facility] [address] [place], [place] [address]Dr. Brii Humphries Willian 11-26-2021 CLIFTONN Telephone (INTN) AYANA ALVES ([id number]) 1940 F Date Time Provider Department 11/26/21 NOPCP (HISTORICAL) INTDEBORAHN During your visit today, we recorded the [...] 81 mg by mouth once daily. - ypwsymp-owpjtazuq-ho tamin D3 500 mg(1,250mg) -200 unit per [...] Status:Closed by HAVEN GR on 11/27/21 Normal [facility] VIT D 1 25 DIHYDROXYon 10-04 Calcitriol(1,25 di-OH Vit D) 91.6 pg/mL Critically high 19.9-79.3 [facility] Comment on above: Performed By: #### V [id number] ####[facility] [address] [place] [address]HsChi Brii Humphries US URI DOP LEG LTon 10-03-19 22 US URI DOP LEG LT EXAMINATION: US [...] by: MANUEL HAYWOOD Date: 2021-10-02 16:46 Normal [facility] FT3on 03-16-2020 FT3 4.04 pg/mL Normal 2.45-5.93 [facility] Comment on above: Performed By: #### 4 500, 2599, 7473 #### [facility] Unless Otherwise Noted [address] [place] [address] / COLA #4724/CLIA # [id number] FT4on 03-16-2020 Free T4 [Mass/Vol] 0.97 ng/dL Normal 0.78-2.44 [facility] Comment on above: Performed By: #### 4 500, 4510, 4520 #### [facility] Diabetes [facility] Unless Otherwise Noted [address] [facility] [address] [place] [address] / COLA #4724/CLIA # [id number] TSHon 03-16-2020 TSH Qn 1.36 uIU/ml Normal 0.47-4.68 [facility] Diabetes [facility] Comment on above: Performed By: #### 4 500, 8910, 4520 #### [facility] Unless Otherwise Noted [address] [facility] [address] [place] [address] / COLA #4724/CLIA # [id number] Vital Signs Date Time Vital Sign Value Performing Clinician Facility 02-02-2025 12:58-0400 Body height 154.9 cm Werner Nolasco DPM Work Phone: [facility] 02-02-2025 12:58-0400 Body mass index (BMI) [Ratio] 22.67 kg/m2 Werner Nolasco DPM Work Phone: [facility] 02-02-2025 12:58-0400 Body weight 54.43 kg Werner Nolasco DPM Work Phone: [facility] 11-26-2024 14:20-0400 Body height 154.[address] 11-26-2024 14:20-0400 Body mass index (BMI) [Ratio] 23.18 kg/m2 [address] 11-26-2024 14:20-0400 Body temperature 98.01 [degF] Pfo [address] [place] [address] System 11-26-2024 14:20-0400 Body weight 55.61 kg Pfo 5 [facility] 11-26-2024 14:20-0400 Diastolic blood pressure 87 mm[Hg] Pfo 5 [facility] 11-26-2024 14:20-0400 Heart rate 91 /min Pfo 5 [facility] 11-26-2024 14:20-0400 Respiratory rate 18 /min Pfo 5 [facility] 11-26-2024 14:20-0400 SaO2% (BldA) [Mass fraction] 97 % Pfo 5 [facility] 11-26-2024 14:20-0400 Systolic blood pressure 149 mm[Hg] Pfo 5 [facility] 10-27-2024 14:06-0400 Body height 157.5 cm Werner Nolasco DPM Work Phone: [facility] 10-27-2024 14:06-0400 Body mass index (BMI) [Ratio] 21.95 kg/m2 Werner DAVISM Work Phone: [facility] 10-27-2024 14:06-0400 Body weight 54.43 kg Werner DAVISM Work Phone: [facility] 09-23-2024 10:36-0400 Body height 154.9 cm Deepika Garcia MD Work Phone: [facility] 09-23-2024 10:36-0400 Body mass index (BMI) [Ratio] 23.16 kg/m2 Deepika Garcia MD Work Phone: [facility] 09-23-2024 10:36-0400 Body weight 55.6 kg Deepika Garcia MD Work Phone: [facility] 09-23-2024 10:36-0400 Diastolic blood pressure 73 mm[Hg] Deepika Garcia MD Work Phone: [facility] 09-23-2024 10:36-0400 Heart rate 88 /min Deepika Garcia MD Work Phone: [facility] 09-23-2024 10:36-0400 Systolic blood pressure 123 mm[Hg] Deepika Garcia MD Work Phone: [facility] 07-28-2024 08:39-0500 Body height 154.9 cm Halima Hooks MD Work Phone: [facility] 07-28-2024 08:39-0500 Body mass index (BMI) [Ratio] 23.85 kg/m2 Halima Hooks MD Work Phone: [facility] 07-28-2024 08:39-0500 Body temperature 97.59 [degF] Halima Hooks MD Work Phone: [facility] 07-28-2024 08:39-0500 Body weight 57.24 kg Halima Hooks MD Work Phone: [facility] 07-28-2024 08:39-0500 Diastolic blood pressure 70 mm[Hg] Halima Hooks MD Work Phone: [facility] 07-28-2024 08:39-0500 Heart rate 70 /min Halima Hooks MD Work Phone: [facility] 07-28-2024 08:39-0500 SaO2% (BldA) [Mass fraction] 95 % Halima Hooks MD Work Phone: [facility] 07-28-2024 08:39-0500 Systolic blood pressure 128 mm[Hg] Halima Hooks MD Work Phone: [facility] 04-26-2024 14:35-0500 Body height 152.4 cm [facility] 04-26-2024 14:35-0500 Body mass index (BMI) [Ratio] 23.7 kg/m2 [facility] 04-26-2024 14:35-0500 Body temperature 98.9 [degF] [facility] 04-26-2024 14:35-0500 Body weight 55.05 kg [facility] 04-26-2024 14:35-0500 Diastolic blood pressure 70 mm[Hg] [facility] 04-26-2024 14:35-0500 Heart rate 99 /min [facility] 04-26-2024 14:35-0500 SaO2% (BldA) [Mass fraction] 94 % [facility] 04-26-2024 14:35-0500 Systolic blood pressure 116 mm[Hg] [facility] 02-24-2024 10:40-0400 Body height 152.4 cm [facility] 02-24-2024 10:40-0400 Body mass index (BMI) [Ratio] 23.4 kg/m2 [facility] 02-24-2024 10:40-0400 Body weight 54.43 kg [facility] 02-24-2024 10:40-0400 Diastolic blood pressure 80 mm[Hg] [facility] 02-24-2024 10:40-0400 Heart rate 87 /min [facility] 02-24-2024 10:40-0400 Systolic blood pressure 128 mm[Hg] [facility] 09-18-2023 14:03-0400 Body height 152.4 cm [facility] 09-18-2023 14:03-0400 Body mass index (BMI) [Ratio] 24.4 kg/m2 [facility] 09-18-2023 14:03-0400 Body weight 56.81 kg [facility] 09-18-2023 14:03-0400 Diastolic blood pressure 72 mm[Hg] [facility] [facility] 09-18-2023 14:03-0400 Heart rate 87 /min [facility] 09-18-2023 14:03-0400 Systolic blood pressure 118 mm[Hg] [facility] 07-10-2023 13:05-0500 Body height 157.5 cm Werner Nolasco DPM Work Phone: [facility] 07-10-2023 13:05-0500 Body mass index (BMI) [Ratio] 22.13 kg/m2 Werner DAVISM Work Phone: [facility] 07-10-2023 13:05-0500 Body weight 54.88 kg Werner Rusher DPM Work Phone: [facility] 06-30-2023 09:30-0500 Body height 152.4 cm Jessica Maxwell Other [facility] 06-30-2023 09:30-0500 Body mass index (BMI) [Ratio] 24.02 kg/m2 Jessica Maxwell Other [employer] Other 06-30-2023 09:30-0500 Body weight 55.79 kg Jessica Maxwell Other [facility] 06-30-2023 09:30-0500 Diastolic blood pressure 77 mm[Hg] Jessica Maxwell Other [facility] 06-30-2023 09:30-0500 SaO2% (BldA) [Mass fraction] 97 % Jessica Maxwell Other [facility] [id number] Other 06-30-2023 09:30-0500 Systolic blood pressure 134 mm[Hg] Jessica Maxwell Other [facility] 06-23-2023 13:30-0500 Body height 152.4 cm Jessica Maxwell Other [facility] 06-23-2023 13:30-0500 Body mass index (BMI) [Ratio] 24.02 kg/m2 Jessica Maxwell Other [facility] [email or web address] Other 06-23-2023 13:30-0500 Body weight 55.79 kg Jessica Maxwell Other [facility] 06-23-2023 13:30-0500 Diastolic blood pressure 76 mm[Hg] Jessica Maxwell Other [facility] 06-23-2023 13:30-0500 SaO2% (BldA) [Mass fraction] 100 % Jessica Maxwell Other [facility] [email or web address] Other 06-23-2023 13:30-0500 Systolic blood pressure 116 mm[Hg] Jessica Maxwell Other [facility] 02-24-2023 13:45-0400 Body height 152.4 cm Jessica Maxwell Other [employer] Other 02-24-2023 13:45-0400 Body mass index (BMI) [Ratio] 22.85 kg/m2 Jessica Maxwell Other [employer] Other 02-24-2023 13:45-0400 Body weight 53.07 kg Jessica Maxwell Other [employer] Other 02-24-2023 13:45-0400 Diastolic blood pressure 80 mm[Hg] Jessica Maxwell Other [employer] Other 02-24-2023 13:45-0400 Systolic blood pressure 121 mm[Hg] Jessica Maxwell Other [employer] Other 08-21-2022 15:00-0400 Body height 152.4 cm Jeb Salas Other [employer] Other 08-21-2022 15:00-0400 Body mass index (BMI) [Ratio] 22.85 kg/m2 Jeb Salas Other [employer] Other 08-21-2022 15:00-0400 Body weight 53.07 kg Jeb Salas Other [employer] Other 04-15-2022 12:00-0500 Body temperature 98.2 [degF] Edin Boo MD Work Phone: [employer] 04-15-2022 12:00-0500 Diastolic blood pressure 74 mm[Hg] Edin Boo MD Work Phone: [employer] 04-15-2022 12:00-0500 Heart rate 61 /min [facility] 04-15-2022 12:00-0500 SaO2% (BldA) [Mass fraction] 99 % Edin Boo MD [facility] 04-15-2022 12:00-0500 Systolic blood pressure 133 mm[Hg] Edin [facility]oo MD [facility] 04-15-2022 04:15-0500 Respiratory rate 12 /min Edin Boo MD [facility] 04-14-2022 23:30-0500 Body height 154.9 cm Edin Boo MD Work Phone: [facility] [employer] 04-14-2022 23:30-0500 Body mass index (BMI) [Ratio] 21.66 kg/m2 Edin Boo MD Work Phone: [facility] [employer] 04-14-2022 23:30-0500 Body weight 52 kg Edin Boo MD [facility] En[facility]ters Encounter Date Encounter Type Care Provider Facility Start: 02-12-2025 End: 02-13-2025 Refill Halima Hooks MD Work Phone: [facility] Comment on above: Anxiety Start: 02-02-2025 End: 02-02-2025 Bamboo flowsheet Werner Nolasco DPM Work Phone: [facility] Start: 02-02-2025 End: 02-02-2025 Bamboo flowsheet Werner Nolasco DPM Work Phone: [facility] [place] [facility] Start: 02-02-2025 End: 02-02-2025 Patient encounter procedure Werner Nolasco DPM Work Phone: [facility] Comment on above: Dermatophytosis of n ail (Primary Dx); Dystrophic nail; Pain of right great toe Start: 02-02-2025 End: 02-02-2025 ambulatory WERNER NOLASCO Not Available Start: 01-31-2025 End: 01-31-2025 ambulatory PHYSICIAN FLORA KENNEDY [facility] Work Phone: Start: 01-31-2025 End: 01-31-2025 Patient encounter procedure Jeb Salas DO -[facility] [place] Work Phone: Start: 01-31-2025 Patient encounter procedure Jeb Salas DO [facility] Start: 01-19-2025 End: 01-23-2025 Refill Meeta Gonzales CNA [facility] Comment on above: Obstructive airway d isease ([facility]) Start: 01-04-2025 End: 01-04-2025 Refill Meeta Gonzales CNA [facility] Comment on above: Anxiety Start: 11-26-2024 End: 11-26-2024 ambulatory Pfo Infusion Chair [address] [facility] On[facility] Comment on above: Osteopenia, unspecif ied location (Primary Dx) Start: 11-25-2024 ambulatory [facility] Start: 11-22-2024 End: 11-22-2024 Orders Only Kallie Bright SURVEY RESEARCHER-DIRECTOR COMPLIANCE [facility] Start: 11-21-2024 End: 11-22-2024 Refill Hal[facility] Hook[facility] MD [facility] Comment on above: Anxiety Start: 11-14-2024 End: 11-14-2024 Refill Mouna Doe MD [facility] Start: 11-08-2024 End: 11-08-2024 Refill Abeba Hernandez CMA [facility] Comment on above: Obstructive airway d isease ([facility]) (Primary Dx) Start: 10-27-2024 End: 10-27-2024 Bamboo flowsheet Werner Nolasco DPM Work Phone: [facility] Start: 10-27-2024 End: 10-27-2024 Bamboo flowsheet Werner Nolasco DPM Work Phone: [facility] Start: 10-27-2024 End: 10-27-2024 Office outpatient visit 15 minutes Werner Nolasco DPM Work Phone: [facility] Comment on above: Dermatophytosis of n ail (Primary Dx); Dystrophic nail; Pain of right great toe Start: 10-27-2024 End: 10-27-2024 ambulatory WERNER NOLASCO Not Available Start: 10-11-2024 End: 10-11-2024 Refill Halima Hooks MD Work Phone: [facility] Comment on above: Anxiety Start: 10-05-2024 End: 10-05-2024 ambulatory JAYANT AMBROCIO [facility] Start: 09-30-2024 End: 09-30-2024 Orders Only Sameera Garcia PROVIDER NETWORK MANAGER [facility] Adult Endocrinology, A Department of [facility] Comment on above: Osteopenia, unspecif ied location (Primary Dx) Start: 09-23-2024 End: 09-23-2024 ambulatory [facility] Start: 09-23-2024 End: 09-23-2024 Office outpatient visit 25 minutes Deepika Garcia MD Work Phone: [facility] Endocrinology, A Department of [facility] Comment on above: Postprocedural hypot hyroidism (Primary Dx); Vitamin D deficiency; Senile osteoporosis Start: 09-23-2024 ambulatory [facility] Start: 08-25-2024 End: 08-26-2024 Refill Meeta Gonzales CNA [facility] Comment on above: Anxiety (Primary Dx) Start: 07-28-2024 End: 07-28-2024 Office outpatient new 45 minutes Halima Hooks MD Work Phone: [facility] Comment on above: Pulmonary hypertensi on, unspecified (CMS-HCC) (Primary Dx); Paroxysmal atrial fibrillation ([facility]); Hyperparathyroidism ([facility]); SSS (sick sinus syndrome) ([facility]); Pacemaker Start: 07-28-2024 End: 07-28-2024 ambulatory HALIMA Ramires JESSEE [facility] Start: 07-27-2024 End: 07-27-2024 ambulatory MOUNA Guthrie [facility] Start: 06-25-2024 End: 06-28-2024 Jerod Garcia MD Work Phone: [facility] Comment on above: Postprocedural hypot hyroidism; Postoperative hypothyroidism Start: 04-28-2024 End: 04-28-2024 ambulatory JESSICA MAXWELL [facility] Start: 04-26-2024 End: 04-26-2024 ambulatory [facility] Work Phone: Start: 04-26-2024 End: 04-26-2024 Patient encounter procedure [facility] Work Phone: Start: 04-20-2024 End: 04-20-2024 Telephone encounter Maria A Nguyen [facility] Comment on above: 06/08/24 MARCUS GALLEGO Start: 04-08-2024 Non-patient / Non-visit [facility] Work Phone: Start: 02-24-2024 End: 02-24-2024 ambulatory [facility] Work Phone: Start: 02-24-2024 End: 02-24-2024 Patient encounter procedure [facility] Work Phone: Start: 02-18-2024 End: 02-18-2024 ambulatory ELVIE [facility] Start: 02-04-2024 End: 02-04-2024 ambulatory [facility] Start: 01-08-2024 End: 02-08-2024 ambulatory [facility] Start: 12-22-2023 End: 01-08-2024 ambulatory [facility] Start: 12-01-2023 End: 12-02-2023 Emergency department patient visit [facility] Start: 11-26-2023 Non-patient / Non-visit [facility] Work Phone: Start: 09-24-2023 End: 09-24-2023 ambulatory DEEPIKA [facility] Start: 09-18-2023 End: 09-18-2023 ambulatory [facility] Work Phone: Start: 09-18-2023 End: 09-18-2023 Patient encounter procedure [facility] Work Phone: Start: 08-22-2023 Non-patient / Non-visit [facility] Work Phone: Start: 07-14-2023 End: 07-14-2023 ambulatory Jessica Maxwell Other [employer] Other Start: 07-14-2023 Telephone encounter Jessica Maxwell [facility] Start: 07-10-2023 Bamboo flowsheet Werner Salazar er DPM Work Phone: [facility] Start: 07-10-2023 Bamboo flowsheet Werner Salazar er DPM Work Phone: [facility] Start: 07-10-2023 End: 07-10-2023 Office outpatient visit 15 minutes Werner Nolasco DPM Work Phone: [facility] Comment on above: Dermatophytosis of n ail (Primary Dx); Dystrophic nail; Pain around toenail Start: 06-30-2023 End: 06-30-2023 ambulatory Jessica Maxwell Other [employer] Other Start: 06-30-2023 Office outpatient vi sit 15 minutes Jessica Maxwell [facility] Start: 06-30-2023 End: 06-30-2023 Patient encounter procedure [facility] Start: 06-27-2023 End: 06-27-2023 ambulatory Jessica Maxwell Other [employer] Other Start: 06-27-2023 Telephone encounter Jessica Maxwell [facility] Start: 06-23-2023 End: 06-23-2023 ambulatory Jessica Maxwell Other [employer] Other Start: 06-23-2023 Office outpatient vi sit 15 minutes Jessica Maxwell [facility] Start: 06-23-2023 End: 06-23-2023 Patient encounter procedure [facility] Work Phone: Start: 06-04-2023 End: 06-04-2023 ambulatory Jeb Salas Other [employer] Other Start: 06-04-2023 Telephone encounter Jeb Salas [facility] Start: 05-13-2023 End: 05-13-2023 ambulatory Jsesica Maxwell Other [employer] Other Start: 05-13-2023 Telephone encounter Jessica Maxwell [facility] Start: 05-08-2023 End: 05-08-2023 ambulatory Jessica Maxwell Other [employer] Other Start: 05-08-2023 Telephone encounter Jessica Maxwell [facility] Start: 04-02-2023 End: 04-02-2023 ambulatory Jessica Maxwell Other [employer] Other Start: 04-02-2023 Telephone encounter Jessica Maxwell [facility] Start: 03-26-2023 End: 03-26-2023 ambulatory Jessica Maxwell Other [employer] Other Start: 03-26-2023 Telephone encounter Jessica Maxwell [facility] Start: 03-11-2023 End: 03-11-2023 ambulatory Jessica Maxwell Other [employer] Other Start: 03-11-2023 Telephone encounter Jessica Maxwell [facility] Start: 02-24-2023 End: 02-24-2023 ambulatory Jessica Maxwell Other [employer] Other Start: 02-24-2023 Office outpatient vi sit 15 minutes Jessica Alissa [facility] Start: 01-22-2023 End: 01-22-2023 ambulatory Jessica Maxwell Other [employer] Other Start: 01-22-2023 Telephone encounter Jessica Maxwell [facility] Start: 12-20-2022 End: 12-20-2022 ambulatory Jessica Maxwell Other [employer] Other Start: 12-20-2022 Telephone encounter Jessica Alissa [facility] Start: 09-24-2022 ambulatory JEB SALAS Facility: Start: 09-09-2022 End: 09-09-2022 ambulatory Jebliza Salas Other [employer] Other Start: 09-09-2022 Office outpatient vi sit 15 minutes Jeb Ginna [facility] Start: 08-21-2022 End: 08-21-2022 ambulatory Jeb Salas Facility:[facility] Start: 08-21-2022 Office outpatient vi sit 15 minutes Jeb Ginna [facility] Start: 08-21-2022 End: 08-21-2022 ambulatory DO Jebliza Salas Work Phone: [facility] Work Phone: Start: 08-21-2022 End: 08-21-2022 Patient encounter procedure DO Jeb Salas Work Phone: [facility] Start: 08-19-2022 End: 08-19-2022 ambulatory Jessica Alissa Other [employer] Other Start: 08-19-2022 Telephone encounter Jessica Maxwell [facility] Start: 07-29-2022 End: 07-29-2022 ambulatory Jeb Salas Other [employer] Other Start: 07-29-2022 Telephone encounter Jeb Salas [facility] Start: 06-21-2022 End: 06-21-2022 ambulatory Jessica Maxwell Other [employer] Other Start: 06-21-2022 Telephone encounter Jessica Maxwell [facility] Start: 06-20-2022 End: 06-20-2022 ambulatory Jessica Maxwell Other [employer] Other Start: 06-20-2022 Telephone encounter Jessica Maxwell [facility] Start: 06-09-2022 End: 07-20-[address] JESSICA MAXWELL Facility:[facility] Start: 04-23-2022 End: 04-26-2022 ambulatory VIVIAN [facility] Start: 04-14-2022 End: 04-14-2022 ambulatory UNKNOWN PROVIDER Facility:[facility] Start: 04-14-2022 End: 04-15-2022 Evaluation and management of inpatient MITALI NARAYAN [facility] Start: 04-14-2022 End: 04-15-2022 Evaluation and management of inpatient Edin Boo MD Work Phone: [facility] Car [facility]- Stepdown Comment on above: Subdural hematoma (P rimary Dx) Start: 04-14-2022 End: 04-14-2022 ambulatory SHRUTHI GALVAN . Facility:[facility] Start: 04-14-2022 Emergency department patient visit MITALI Feliciano MD [facility] Start: 04-09-2022 End: 04-10-[address] JESSICA MAXWELL Facility:[facility] Start: 04-05-2022 End: 06-08-[address] JESSICA MAXWELL Facility:[facility] Start: 04-03-2022 Adult health examination Ratna Maxwell Other [employer] Other Start: 04-03-2022 Gynecological examin ation normal Jessica Maxwell Other [employer] Other Start: 01-10-[address] JAYANT Catalan ty:[facility] Start: 11-26-2021 Telephone encounter [facility] Comment on above: colonoscopy question s Start: 10-05-2021 End: 10-05-2021 ambulatory Jeb Salas Other [employer] Other Start: 10-05-2021 Office outpatient vi sit 15 minutes [facility] Start: 10-02-2021 End: 10-03-[address] JESSICA MAXWELL Facility:[facility] Procedures Date Procedure Procedure Detail Performing Clinician Start: 02-04-2024 Follow-up visit Follow-up YOEL VELASCO Start: 08-21-2022 Plain X-ray of left hip DO Jeb Ginna Work Phone: Start: 08-21-2022 Plain X-ray of left femur DO Jeb Ginna Work Phone: Start: 04-15-2022 BASIC METABOLIC PANE [...] Author Start: 11-26-2025 Tobacco Screening Tobacco Screening [facility] Start: 09-23-2025 Tobacco Screening Tobacco Screening [facility] Start: 08-08-2025 End: 10-19-2025 DXA Skeletal system Views for bone density Dexa scan central skeletal Imaging Routine Senile osteoporosis Expected: 08/08/2025 (Approximate), Expires: 10/19/2025 [facility] Comment on above: Expected: 08/08/2025 (Approximate), Expi res: 10/19/2025 Start: 07-28-2025 Tobacco Screening Tobacco Screening [facility] Start: 07-27-2025 Fall Risk Screening Fall Risk Screening [facility] Start: 07-27-2025 Tobacco Screening Tobacco Screening [facility] Start: 05-11-2025 End: 05-11-2025 Patient encounter procedure 05/11/2025 2:15 PM EST Office Visit [facility] [address] [place] [address] Werner Nolasco, DPM [address] [place], [place] [id number] [facility] Start: 05-02-2025 End: 05-02-2025 Patient encounter procedure 05/02/2025 11:30 AM EST Office Visit [facility] Neu[facility], A Department of [facility] [address] [address] Mouna Doe MD [address] [place] [address] [address] [facility], A Department of [facility] Start: 02-07-2025 Influenza vaccination [facility] Start: 02-03-2025 Tobacco Screening Tobacco Screening [facility] Start: 02-02-2025 End: 02-02-2025 Patient encounter procedure [facility] Comment on above: Arrived Start: 01-31-2025 Plain X-ray of left hip XR hip LT min 2V(w/wo pelvis)* [facility] Start: 01-31-2025 XR Hip - left [address] [facility] Start: 11-29-2024 End: 11-29-2024 Patient encounter procedure 11/29/2024 3:40 PM EDT Office Visit [facility] [address] [place] [address] [place] [phone] Kallie Bright, SURVEY RESEARCHER-DIRECTOR COMPLIANCE [address] [place], [place] [phone] [facility] Start: 11-26-2024 End: 11-26-2024 ambulatory 11/26/2024 2:30 PM EDT Infusion Sydnie Hoang [facility] - [facility] Oncology [address] [place] [phone] [facility] Start: 10-28-2024 Fall Risk Screening Fall Risk Screening [facility] Start: 10-27-2024 End: 10-27-2024 Patient encounter procedure 10/27/2024 1:30 PM EDT Office Visit [facility] [address] [place] [phone] Werner Nolasco DPKeyla [address] [facility] [place], [place] [phone] [facility] Comment on above: Arrived Start: 09-30-2024 End: 09-30-2024 Patient encounter procedure [facility] Start: 07-28-2024 End: 07-28-2024 Patient encounter procedure 07/28/2024 9:00 AM EST Office Visit [facility] [address] [place] [phone] Halima Hooks MD [address] [place], [place] [phone] [facility] Start: 07-19-2024 End: 07-19-2024 Patient encounter procedure 07/19/2024 11:30 AM EST Office Visit [facility] Adult Neurology [address] [place] [address] Mouna Doe MD [address] [place] [address] [facility] Start: 04-28-2024 End: 04-28-2024 Patient encounter procedure 04/28/2024 10:00 AM EST Appointment [facility] Division of [facility] - MRI [address] [place] [phone] Edin Poe MD [address] [place] [address] [facility] - MRI Start: 02-08-2024 Influenza vaccination Influenza Vaccine [facility] Start: 11-10-2023 End: 11-10-2023 Patient encounter procedure 11/10/2023 1:30 PM EDT Office Visit [facility] [address] [place] [phone] Werner Nolasco, DPM [address] [place], [place] [phone] [facility] Start: 07-10-2023 End: 07-10-2023 Patient encounter procedure 07/10/2023 1:15 PM EST Office Visit [facility] [address] [place] [phone] Werner Nolasco, DP [address] [place] [address] Arrived [facility] Comment on above: Arrived Start: 05-03-2023 DIABETES SCREEN DIABETES SCREEN [facility] Start: 03-16-2023 DTaP,Tdap and Td Vaccines (2 - Td or Tdap) DTaP,Tdap and Td Vaccines (2 - Td or Tdap) [facility] Start: 02-07-2023 Influenza vaccination Influenza Vaccine (#1) [facility] Start: 10-18-2022 Depression Screening Depression Screening [facility] Start: 04-24-2022 End: 04-24-2022 Patient encounter procedure 04/24/2022 Office Visit Neurosurgery Flower Preciado, SURVEY RESEARCHER - DIRECTOR COMPLIANCE [address] [facility] [address] [place] [address] [facility] Start: 02-07-2022 Influenza vaccination INFLUENZA (Season Ended) [facility] Start: 01-07-2022 Influenza vaccination Flu vaccine (#1) [facility] Start: 06-09-2021 ADVANCE DIRECTIVE DISCUSSION ADVANCE DIRECTIVE DISCUSSION [facility] Start: 02-08-2021 Adult depression screening assessment DEPRESSION SCREENING [facility] Start: 2006 BONE DENSITY BONE DENSITY [facility] Start: 2006 Pneumococcal 65+ years Vaccine (1 - PCV) Pneumococcal 65+ years Vaccine (1 - PCV) [facility] Start: 2006 Pneumococcal Vaccine: 65+ Years (1 - PCV) Pneumococcal Vaccine: 65+ Years (1 - PCV) [facility] Start: 2006 PNEUMOCOCCAL: 65+ (1 - PCV) PNEUMOCOCCAL: 65+ (1 - PCV) [facility] Start: 1991 Administration of varicella zoster vaccine Zoster (Shingles) Vaccine (1 of 2) [facility] Start: 1991 Pneumococcal Vaccine: 65+ Years (1 of 1 - PCV) Pneumococcal Vaccine: 65+ Years (1 of 1 - PCV) [facility] Start: 1991 Shingles vaccine (1 of 2) Shingles vaccine (1 of 2) [facility] Start: 1991 SHINGRIX VACCINE (1 of 2) SHINGRIX VACCINE (1 of 2) [facility] Start: 02-23-1960 DTaP,Tdap and Td Vaccines (1 - Tdap) DTaP,Tdap and Td Vaccines (1 - Tdap) [facility] Start: 02-23-1960 DTaP/Tdap/Td vaccine (1 - Tdap) DTaP/Tdap/Td vaccine (1 - Tdap) [facility] Start: 02-23-1960 Urine microalbumin profile DTAP,TDAP,TD (1 - Tdap) [facility] Start: 1953 Depression Screen Depression Screen [facility] Start: 1953 Depression Screening Depression Screening [facility] Start: 1946 COVID-19 VACCINE (#1) COVID-19 VACCINE (#1) [facility] Start: 1941 COVID-19 Vaccine (#1) COVID-19 Vaccine (#1) [facility] Start: 1941 Medicare Annual Wellness (AWV) Medicare Annual Wellness (AWV) [facility] Start: 1941 Medicare Annual Wellness Visit Medicare Annual Wellness Visit [facility] End: 04-15-2022 EKG 12 Lead EKG 12 Lead ECG Routine One Time for 1 Occurrences starting 04/15/2022 until 04/15/2022 [employer] Phone: Comment on above: One Time for 1 Occurrences starting 12/2021 until 04/15/2022 Oxygen therapy [[facility] Data Set] Initiate Oxygen Therapy Protocol Respiratory Care Routine As Needed until discontinued starting 04/14/2022 [employer] Phone: Comment on above: As Needed until discontinued starting End: 04-14-2022 Speech and language therapy regime Speech language pathology evaluation PRESCHOOL EDUCATION DIRECTOR Routine One Time for 1 Occurrences starting 04/14/2022 until 04/14/2022 [employer] Phone: Comment on above: One Time for 1 Occurrences starting 11/2021 until 04/14/2022 End: 05-25-2022 Spirometry panel Incentive spirometry Respiratory Care Routine Every 1hr while awake for 41 Days starting 04/14/2022 until 05/25/2022 [employer] Phone: Comment on above: Every 1hr while awake for 41 Days starti ng 04/14/2022 until 05/25/2022 End: 09-23-2025 Thyrotropin [Units/volume] in Serum or Plasma TSH Lab Routine Postprocedural hypothyroidism 1 Occurrences starting 09/23/2024 until 09/23/2025 [employer] Phone: Comment on above: 1 Occurrences starting 09/23/2024 until 09/23/2025 End: 09-23-2025 Thyroxine (T4) free [Mass/volume] in Serum or Plasma T4, free Lab Routine Postprocedural hypothyroidism 1 Occurrences starting 09/23/2024 until 09/23/2025 [employer] Comment on above: 1 Occurrences starting 09/23/2024 until 09/23/2025 End: 04-14-2022 TRAUMA PANEL TRAUMA PANEL Lab STAT One Time for 1 Occurrences starting 04/14/2022 until 04/14/2022 DU POWELL [employer] Phone: Comment on above: One Time for 1 Occurrences starting 11/2021 until 04/14/2022 End: 09-23-2025 Triiodothyronine (T3) Free [Mass/volume] in Serum or Plasma T3, free Lab Routine Postprocedural hypothyroidism 1 Occurrences starting 09/23/2024 until 09/23/2025 [employer] Comment on above: 1 Occurrences starting 09/23/2024 until 09/23/2025 End: 09-23-2025 Vitamin D 25 hydroxy Vitamin D 25 hydroxy Lab Routine Vitamin D deficiency 1 Occurrences starting 09/23/2024 until 09/23/2025 [facility] Comment on above: 1 Occurrences starting 09/23/2024 until 09/23/2025 XR Ankle - left GE [address] [facility] Immunizations Immunization Date Immunization Notes Care Provider Liz fernandez 03-16-2013 tetanus and diphther ia toxoids, adsorbed, preservative free, for adult use (5 Lf of tetanus toxoid and 2 Lf of diphtheria toxoid) Jessica Maxwell Other [facility] Payers Date Payer Category Payer Self-pay [id number] [id number] 2021 Private Health Insurance [employer] [id number] 2021 Unknown [employer] M [employer] [id number] 2021-Present [address] [place] [address] [id number]. [id number] 2019 Commercial Indemnity MED[employer] M[employer] UAL [id number] 2019 Unknown MMO MMO MEDICARE SUPPLEMENT [id number] 2019-Present [phone] [address] [place] [address] Indemnity [id number]. [id number] 2006 Medicare MEDICARE MEDICAR E A AND B [id number] 2006-Present [phone] [address] [address] [place] [address] Medicare [id number]. [id number] 2006 Medicare [id number]. 1.13.693.2. [id number] 1959 Medicare [id number] 2.16.840.1.021824.19 1959 Unknown [id number] 2.16.840.1.075330.19 1941 Unknown [id number] 2.16.840.1.288286.3.579.2. 175 1941 Unknown [id number] 2.16.840.1.058989.3.579.2. 176 1941 Unknown [id number] 2.16.840.1.057001.3.579.2. 593 1941 Unknown [id number] 2.16.840.1.140731.3.579.2. 593 1941 Unknown [id number] 2.16.840.1.849589.3.579.2. 593 1941 Unknown [id number] 2.16.840.1.594264.3.579.2. 593 1941 Unknown [id number] 2.16.840.1.948154.3.579.2. 593 1941 Unknown [id number] 2.16.840.1.386455.3.579.2. 593 1941 Unknown [id number] 2.16.840.1.512327.3.579.2. 593 1941 Unknown [id number] 2..840.1.816053.3.579.2. 128 1941 Unknown [id number] 2.16.840.1.302979.3.579.2. 128 1941 Unknown [id number] 2.16.840.1.982698.3.579.2. 128 1941 Unknown [id number] 2.16.840.1.205785.3.579.2. 128 1941 Unknown [id number] 2.16.840.1.080220.3.579.2. 128 1941 Unknown [id number] 2.16.840.1.328063.3.579.2. 128 1941 Unknown [id number] 2.16.840.1.343422.3.579.2. 128 1941 Unknown [id number] 2.16.840.1.485729.3.579.2. 128 1941 Unknown [id number] 2.16.840.1.226467.3.579.2. 1286 1941 Unknown [id number] 2.16.840.1.876445.3.579.2. 1285 1941 Unknown [id number] 2.16.840.1.548257.3.579.2. 1285 1941 Unknown [id number] 2.16.840.1.513888.3.579.2. 1285 1941 Unknown [id number] 2.16.840.1.589633.3.579.2. 1285 1941 Unknown [id number] 2.16.840.1.678773.3.579.2. 1285 1941 Unknown [id number] 2.16.840.1.627294.3.579.2. 1285 1941 Unknown [id number] 2.840.1.814935.3.579.2. 1285 1941 Unknown [id number] 2.16.840.1.901020.3.579.2. 1285 1941 Unknown [id number] 2.16.840.1.960770.3.579.2. 1285 1941 Unknown [id number] 2.16.840.1.408046.3.579.2. 1285 1941 Unknown [id number] 2.840.1.951514.3.579.2. 1259 1941 Unknown [id number] 2.16840.1.552031.3.579.2. 1259 Unknown [id number] 2.16840.1.264169.3.579.2. 531 Social History Date Type Detail Facility Start: 04-18-2014 End: 09-24-2023 Tobacco smoking status NHIS Ex-smoker [facility] Start: [birth year]-09-1955 End: 06-09-1967 History of tobacco use Current smoker [facility] Start: 04-18-2014 End: 09-24-2023 Tobacco use and exposure Smokeless tobacco non-user [facility] Start: 05-03-2020 End: 11-26-2024 Alcohol intake Current drinker of alcohol (finding) [facility] Start: 05-03-2020 End: 06-20-2020 Alcohol intake [facility] Start: 01-12-2020 History SDOH Alcohol Frequency 2 [facility] Start: 01-12-2020 History SDOH Alcohol Std Drinks 1 [facility] Start: 1940 Sex Assigned At Female [facility] Start: 06-20-2020 End: 03-27-2023 Sex Assigned At [facility] Start: 06-09-1955 End: 06-09-1967 History of tobacco use Cigarette Smoker [employer] Phone: Start: 04-15-2022 Tobacco Comment Smoker when she was 17 years old to 23 years old [employer] Phone: Start: 04-15-2022 Alcohol Comment one glass of wine every 4 months - social [employer] Phone: Start: 1940 Sex Assigned At Not on file [employer] Phone: Start: 04-05-2022 End: 04-15-2022 Exposure to SARS-CoV-2 (event) Not sure [employer] Phone: Start: 03-26-2023 Alcohol Comment 1-2 drinks less than monthly in the past year, Caffeine intake: 1-2 cups per day, coffee [facility] Adolescent depressio n screening assessment 0 [facility] [email or web address] [facility] Start: 02-28-2020 Alcohol Comment Occasional [facility] [email or web address] [facility] Start: 01-12-2015 End: 04-26-2024 Sex Female (finding) [facility] Start: 07-07-2019 Gender identity Identifies as female gender (finding) [facility] Start: 07-07-2019 Sexual orientation Heterosexual (finding) [facility] Work Phone: Medical Equipment Procedure Code Equipment Code Equipment Origin al Text Equipment Identifier Dates Ring Annuloplast y 28mm - [id number] - [id number] Start: 10-30-2018 Ring Annuloplast Contour 3d 26 - [id number] - [id number] Start: 10-30-2018 Lead Capsure Fix Novus 5076-52 - [id number] - [id number] Start: 11-04-2018 Lead Capsure Fix Novus 5076-45 - [id number] - [id number] Start: 11-04-2018 Cardiac pacemaker, device (physical object) ([id number]) [facility] - [id number] - [id number] Start: 11-04-2018 Goals Date Patient Goal Desired Activity /State Personal health goal Comment on above: Formatting of this n ote might be different from the original. Evaluation of progress towards goal: plan is home with home health Clinical Notes 10-05-2021 to 02-02-2025 Werner Nolasco DPM - 02/02/2025 1:00 PM EDTPatient InstructionsRosa Paula RN - 11/26/2024 2:30 PM EDTSlinwood Nolasco DPM - 10/27/2024 1:30 PM EDTPatient Instructions Note Date & Type Note Facility 02-02-2025 History of Presen t illness Narrative Images [...] surgery for valve repair CATARACT EXTRACTION COLONOSCOPY Sal, 2012, , CT ANGIOGRAM ABDOMEN PELVIS 10/23/2018 [...] therapy completed in June of 2023. Plan: [place] agreement against any further oral terbinafine therapy [...] Werner Nolasco DPM documented in this encounter [facility] 02-02-2025 Instructions Werner Nolasco DPM - 02/02/2025 1:00 PM EDT Topical care measures as noted documented in this encounter [facility] 11-26-2024 History of Presen t illness Narrative Patient is here for Reclast. She has had it before, verbalized understanding of side effects. Labs WNL. She denies dental procedures. IV started. Reclast infused over 15 minutes. Patient tolerated it well. IV removed. Patient discharged in stable condition. documented in this encounter [facility] [employer] 10-27-2024 History of Presen t illness Narrative [...] valve repair CATARACT EXTRACTION COLONOSCOPY Salam, 2012, CT ANGIOGRAM ABDOMEN PELVIS 10/23/2018 CT [...] therapy completed in June of 2023. Plan: [place] agreement against any further oral terbinafine therapy at this time. [place]uka agreement for topical care measures: Formula 7 [...] Werner Nolasco DPM documented in this encounter [facility] 10-27-2024 Instructions Werner Nolasco DPM - 10/27/2024 1:30 PM EDT Topical care measures as noted documented in this encounter [facility] 09-23-2024 History of Presen t illness Narrative [...] fatibue Fractures left wrist pinned in the Hypertension Hypothyroidism Memory loss slight cognitive decline [...] 10/31/2017 Performed by Daksha Bull MD at [facility] BREAST BIOPSY Left BENIGN, cyst/tumor, in her 20's CARDIAC PACEMAKER PLACEMENT Left CATARACT EXTRACTION 2007 COLONOSCOPY 06/28/2016 COLONOSCOPY N/A 01/19/2020 Performed by Fermin Gamez MD at [facility] ENDOSCOPY Coronary angiogram and right heart and left ventricular gram/pressure N/A 09/09/2018 Performed by Solomon Piper MD at [facility] CARDIAC CATH LABS EGD with bx N/A 02/28/2020 Performed by Fermin Gamez MD at [facility] ENDOSCOPY EP - Device DC PPM Left 11/04/2018 Performed by Lori Yo MD at [facility] (EP) FOOT SURGERY Bilateral little toes pins in toes, bones shaved down on outsides of both feet MINIMALLY INVASIVE MITRAL VALVE REPAIR 28MM FUTURE RING , MINIMALLY INVASIVE TRICUSPID VALVE REPAIR 26MM CONTOUR 3D RING/ BHARAT N/A 10/30/2018 Performed by Edin Lima MD at [facility] SPINE SURGERY THYROIDECTOMY, PARTIAL 1990s TONSILLECTOMY child WRIST SURGERY Left Current Outpatient [...] sec Final NEW REFERENCE RANGE Assessment: Ayana Alves presents today for evaluation of Osteopenia with [...] clinic: 1 yr documented in this encounter [facility] [employer] 07-28-2024 History of Presen t illness Narrative Images from the original note were not included. [address] [place], [place] [address] Patient: Ayana Alves Date of : 1940 [...] fatibue Fractures left wrist pinned in the Hypertension Hypothyroidism Memory loss slight cognitive decline [...] 10/31/2017 Performed by Daksha Bull MD at [facility] BREAST BIOPSY Left 1960s BENIGN, cyst/tumor, in her 20's CARDIAC PACEMAKER PLACEMENT Left CATARACT EXTRACTION 2007 COLONOSCOPY 06/28/2016 COLONOSCOPY N/A 01/19/2020 Performed by Fermin Gamez MD at [facility] ENDOSCOPY Coronary angiogram and right heart and left ventricular gram/pressure N/A 09/09/2018 Performed by Solomon Piper MD at [facility] CARDIAC CATH LABS EGD with bx N/A 02/28/2020 Performed by Fermin Gamez MD at [facility] ENDOSCOPY EP - Device DC PPM Left 11/04/2018 Performed by Lori oY MD at [facility] (EP) FOOT SURGERY Bilateral little toes pins in toes, bones shaved down on outsides of both feet MINIMALLY INVASIVE MITRAL VALVE REPAIR 28MM FUTURE RING , MINIMALLY INVASIVE TRICUSPID VALVE REPAIR 26MM CONTOUR 3D RING/ BHARAT N/A 10/30/2018 Performed by Edin Lima MD at [facility] SPINE SURGERY THYROIDECTOMY, PARTIAL TONSILLECTOMY child WRIST [...] orders for this visit: Pulmonary hypertension, unspecified (CMS-HCC) Paroxysmal atrial fibrillation (CMS-HCC) Hyperparathyroidism (CMS-HCC) SSS (sick sinus syndrome) (CMS-HCC) Pacemaker 84-year-old female here to establish care today No plans for acute medication changes History and records updated HALIMA HOOKS MD Family Medicine Physician [facility] Medicine / [facility] 07/28/24 This note was completed with voice recognition software. The document was reviewed for errors however some may still be present. Please do not hesitate to contact/Epic msg the author to verify any questions/concerns. documented in this encounter [facility] 04-20-[address] Doe Reschedule: Patient's appointment with Dr Doe on June 08, 2024 needs to be rescheduled at this time due to provider out of clinic. Contacted patient and offered to reschedule for open slots in July, per melter supervisor oxygen furnace's instruction. Patient is rescheduled to see Dr Doe at our [place] location on 07/19/23 at 11:30a documented in this encounter [facility] 04-20-[address] Doe Reschedule: Patient's appointment with Dr Doe on June 08, 2024 needs to be rescheduled at this time due to provider out of clinic. Contacted patient and offered to reschedule for open slots in July, per melter supervisor oxygen furnace's instruction. Patient is rescheduled to see Dr Doe at our [place] location on 07/19/23 at 11:30a [facility] 02-24-2024 Evaluation note Diagnosis Onset Date Resolution Acute left ankle pain acute February 24, 2024 10:25am Viral URI acute April 26, 2024 2:29pm [facility] Work Phone: 1(755) 462-582809-11-2024 NoteXR SHOULDER RT MIN 2 VWS Procedure: Right shoulder radiographs performed Number of views:3 History:Pain Comparison:12/01/2023 Findings: There is a healing fracture of the surgical which is unchanged in position when compared to the prior study. There are no acute fractures or dislocations seen. No osteolytic or osteoblasticlesions are identified. Impression: Healing fracture right shoulder Finalized by Sharla Elmore DO on 02/18/2024 5:59 [facility] History of Present illness Narrative* Werner Nolasco, DPM - 07/10/2023 1:15 PM EST Images from [...] understanding. Werner Nolasco DPM documented in this [facility]02-01-2024 Instructions* Patient Instructions* Werner Nolasco DPM - 07/10/2023 1:15 PM EST Topical care measures as noted documented in this [facility]01-22-2024 Evaluation note* Encounter Date Diagnosis Assessment Notes Treatment Notes Treatment Clinical Notes Jun, Other chest pain (ICD-10 - R07.89) Pt agrees to stress test and cxr. Recommened she move up her appt w cardiology. If pain increases or becomes more severe go to ER or call 911 [employer] Other 01-15-2024 Evaluation note* Encounter Date Diagnosis Assessment Notes Treatment Notes Treatment Clinical Notes Jun, Screening mammogram, encounter for (ICD-10 - Z12.31) Jun, Rhomboid muscle pain (ICD-10 - M79.18) Pt given HO on home stretches for this area. Discussed massotherapy and PT as well. [employer] Other 10-03-2023 Evaluation note* Encounter Date Diagnosis Assessment Notes Treatment Notes Treatment Clinical Notes Mar, Hypercalcemia (ICD-1 0 - E83.52) [employer] Other 09-18-2023 Evaluation note* Encounter Date Diagnosis Assessment Notes Treatment Notes Treatment Clinical Notes Feb, Chronic fatigue (ICD-10 - R53.82) Discussed differential. Discussed stress and 's health issues. Assess for anemia and metabolic abnormalities. Feb, Acquired hypothyroidism (ICD-10 - E03.9) Overdue for labs - chronic problem Feb, Bruising (ICD-10 - T14.8XXA) Discussed differential. Will obtain recent labs from [place]. [employer] Other 07-14-2023 Evaluation note* Encounter Date Diagnosis Assessment Notes Treatment Notes Treatment Clinical Notes Dec, Vitamin D deficiency (ICD-10 - E55.9) [employer] Other 04-03-2023 Evaluation note* Encounter Date [...] left hip, subsequent encounter (ICD-10 - S76.012D) [employer] Other 03-15-2023 Evaluation note* Encounter Date [...] as documented in the electronic medical record. [employer] Other 02-20-2023 Evaluation note* Encounter Date Diagnosis Assessment Notes Treatment Notes Treatment Clinical Notes Jul, Chronic fatigue (ICD-10 - R53.82) Jul, Essential (primary) hypertension (ICD-10 - I10) [employer] Other 11-07-2022 History of Present illness Narrative* Mabel Guerrero OT - 04/15/2022 4:27 PM EST Occupational Therapy Facility/Department: [facility] CAR 2- STEPDOWN Occupational Therapy [...] Ambulation Assistance: Independent Transfer Assistance: Independent Active Director Home Health: Yes Mode of Transportation: SUV, Truck Occupation: [...] Minutes: 16 Minutes Mabel Guerrero OTR/L * Rekah Carrillo - 04/15/2022 1:20 PM EST Speech Language Pathology Facility/Department: [facility] Docebo 2- STEPDOWN Initial Speech/Language/Cognitive Assessment NAME: Ayana [...] 04/14/2022 at 8:16 p.m.. Primary Complaint: Ayana Alevs is a female that [facility] suffering mechanical fall from standing height while walking her dog. No LOC. Pt found to have small L parietal SDH on CT while at [place]. CT face and c-spine were negative. Pt [...] recommended. Verbal education provided. Recommendations: Recommendations Requires PRESCHOOL EDUCATION DIRECTOR Intervention: No Patient Education: Yes Patient Education Response: Verbalizes understanding Plan: Individuals consulted Consulted and agree with results and recommendations: Patient Goals: Patient/family involved in developing goals and treatment plan: Yes Subjective: Social/Functional History Lives With: Spouse Type of Home: House Active Director Home Health: Yes Mode of Transportation: Car Vision Vision: [...] 11:55 Minutes 13 Completed by: Rekha Carrillo Icing And Glaze Maker Clinician Cosigned By: Nargis Fernandez M.S.CCC/PRESCHOOL EDUCATION DIRECTOR * Meheren Bradshaw, PT - 04/15/2022 11:55 AM EST Physical Therapy Facility/Department: [facility] CAR 2- STEPDOWN Physical Therapy Initial Assessment Name: Ayana Alves : 1940 Date of Service: 04/15/2022 82 y/o trauma transfer from [place], mechanical fall SH, on Plavix, outside hospital [...] ambulate 200' no device, steadily. She can infectious waste technician unilateral stance for at least 10 seconds. [...] Ambulation Assistance: Independent Transfer Assistance: Independent Active Director Home Health: Yes Occupation: Retired Type of Occupation: Worked for [employer] in several different jobs including [...] left hand pain. She reports xrays at [place] showed no broken bones. Objective: Patient Vitals for the past 8 hrs: BP Temp Temp src Pulse Resp SpO2 Height Weight 04/14/22 2345 -- -- -- 61 -- -- -- -- 04/14/22 2330 135/70 -- Oral 62 16 96 [...] 7:54 PM EST SPIRITUAL CARE DEPARTMENT - [facility] Emergency/Trauma Note PATIENT NAME: Ayana Alves Shift date: 04/14/22 Shift day: Friday Shift # 2 Room # Name: Ayana Alves Age: 82 y.o. Gender: female Yarsanism: Gnosticist Place of sikhism: [facility] in [place] Trauma/Incident type: Adult Trauma Priority Admit Date & Time: 04/14/2022 6:56 PM TRAUMA NAME: xx[place] ADVANCE DIRECTIVES IN CHART? No NAME OF DECISION MAKER: Bryan Alves, spouse or Kiya, daughter PATIENT/EVENT DESCRIPTION: Ayana Alves is a 82 y.o. female who arrived via [facility] as an Adult Trauma Priority; patientsustained injuries from a fall. Pt to be admitted to . SPIRITUAL [id number]: Helicopter Engineer provided a ministry of presence and made space for sharing. Helicopter Engineer learned that patient receives support and comfort from her family and her yossi. Patient shared she belongs to [employer] in [place] and has a large bible study group praying anisha. Patient shared that her , Bryan, has early Alzheimer's and is home resting. Patient appeared to be calm and seemed to be coping well. Helicopter Engineer connected patient's daughter, Kiya, with patient in ED16 (patient was originally in Trauma B), and extended hospitality. Patient and patient's daughter expressed gratitude for marine propulsion technician presence. PATIENT BELONGINGS: With patient ANY BELONGINGS OF SIGNIFICANT VALUE NOTED: Not noted or handled by marine propulsion technician REGISTRATION STAFF NOTIFIED? Yes WHAT IS YOUR SPIRITUAL CARE PLAN FOR THIS PATIENT?: Helicopter Engineer support will continue to be available as needed. 04/14/221952 Encounter Summary Service Provided For: Patient;Family Referral/Consult From: Multi-disciplinary team Support System Children;Spouse;Zoroastrianism/yossi community Last Encounter 04/14/22 Complexity of Encounter Low Begin Time 1857 End Time 1957 Total Time Calculated 60 min Crisis Type Trauma Assessment/Intervention/Outcome Assessment Calm;Coping Intervention Active listening;Sustaining Presence/Ministry of presence Outcome Comfort;Expressed Gratitude Plan and Referrals Plan/Referrals Continue Support (comment) . Spiritual Care Department [facility] [phone] [facility] Work Phone: 1(522) 647-683011-07-2022 Hospital Discharge instructions* Discharge Instructions* Tiffanie Peck [...] the [facility] at [phone]. This center offers additional therapy, support groups, education and other resources at no cost. The center is located at [address] [place] [address]. You can also visit www.[facility].org for more information. General questions or concerns may be called to the trauma nurse line at [phone] and please leave a message. Trauma is a life-threatening condition. Your doctor will want to closely monitor you. Be sure to goto all of your appointments. * Discharge Instr - Activity* Rosario Thomas RN - 04/15/2022 3:23 PM EST As tolerated. * Attachments The following attachments cannot be sent through Care Everywhere. * Acute Concussion ([place] Citizen) * Head Injury: Closed: General Info ([place] Citizen) documented in this [facility] Work Phone: 1(482) 999-552808-09-2022 NoteThis is a Telehealth Appointment *This visit [...] a normal screening. Patient was referred to [facility] by PCP on 05/03/2020 due to [...] melena. Patient is followed by Jayant Vasques; fingerprint classifier, anticoagulated with Plavix. Review of Systems Constitutional: [...] PA-C Electronically Signed by (more content not included)...[facility]: Order Comment: [id number] Miscellaneous Notes* Telephone Encounter - Haven Gr RN - 11/26/2021 2:11 PM EDT -Pt Verified by Name and Date of -pt calling to ask if there is an age limit for colonoscopies. Pt PCP not with [facility]. -advised discuss with PCP and seek referral for AN[facility] eval. [facility]* Encounter Date Diagnosis Assessment [...] in office today. Prior medical notes from [facility] and history have been reviewed. At this [...] as documented in the electronic medical record. [employer] [facility]any[facility] Other Evaluation note* Diagnosis Subdural hematoma- Primary Subdural hemorrhage Subdural hematoma Subdural hemorrhage documented in this encounter [facility] Work Phone: evaluation noteNo InformationNort Lanyrd Other Evaluation noteNo assessment information available [facility] Work Phone: Evaluation note* Diagnosis Dermatophytosis of nail- Primary Dystrophic nail Other specified disease of nail Pain around toenail documented in this encounter [facility] HealthcareEvaluation note* Diagnosis Onset Date Resolution Status Acute left ankle pain acute [facility] Work Phone: Evaluation note* Diagnosis 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 documented in this encounter [facility]* Diagnosis Pulmonary hypertension, unspecified ([facility])- Primary Paroxysmal atrial fibrillation ([facility]) Atrial fibrillation Hyperparathyroidism ([facility]) Hyperparathyroidism, unspecified SSS (sick sinus syndrome) ([facility]) Sinoatrial node dysfunction Pacemaker Cardiac pacemaker in situ documented in this encounter [facility]* Diagnosis Anxiety- Primary Anxiety state, unspecified [facility] Diagnosis Postprocedural hypothyroidism- Primary Postsurgical hypothyroidism Vitamin D deficiency Senile osteoporosis [facility] Diagnosis Osteopenia, unspecified location- Primary [facility] Diagnosis Anxiety Anxiety state, unspecified [facility] Diagnosis Dermatophytosis of nail- Primary Dystrophic nail Other specified disease of nail Pain of right great toe documented in this encounter [facility] HealthcareEvaluation note* Diagnosis Obstructive airway disease (CMS-HCC)- Primary Chronic airway obstruction, not elsewhere classified documented in this encounter [facility]* Diagnosis Anxiety Anxiety state, unspecified documented in this encounter [facility]* Diagnosis Osteopenia, unspecified location- Primary documented in this encounter [facility]* Diagnosis Obstructive airway disease (CMS-HCC) Chronic airway obstruction, not elsewhere classified documented in this encounter [facility]* Diagnosis Onset Date Resolution Status Admit Date Left hip pain acute January 9:45am Primary osteoarthritis of le ft hip acute January 31 9:45am Strain of flexor muscle of l eft hip acute January 31 9:45am [facility] Work Phone: Evaluation note* Diagnosis Dermatophytosis of nail- Primary Dystrophic nail Other specified disease of nail Pain of right great toe documented in this encounter [facility] HealthcareEvaluation note* Diagnosis Anxiety Anxiety state, unspecified [facility] - [facility]* Type Description Date Surgical History bones in feet shaved Surgical History pins left wrist Surgical History cage in back 2011 Surgical History open heart surgery 2020 Surgical History pacemaker 2020 [employer] Other History general Narrative - Reported* Type Description Date Surgical History bones in feet shaved Surgical History pins left wrist Surgical History cage in back 2011 Surgical History open heart surgery 2020 Surgical History pacemaker 2020 Hospitalization History fall- [facility] 04/13/2022 [employer] Other History general Narrative - Reported* [...] fall- [facility] d[facility]t c oncussion 04/13/2022 [employer] Other InstructionsNot on filedocumented in this encounter [facility] filedocumented in this [facility] filedocumented in this encounter [facility] filedocumented in this encounter [facility] on filedocumented in this encounter [facility] on filedocumented in this encounter [facility]Reason for referral (narrative)No reason for referral [facility] Work Phone: Summary Purpose Family History Relationship Condition Age at Onset Recorded Date/T jacki father Unknown Not Specified Unknown Relationship Condition Age at Onset Recorded Date/T jacki father Unknown mother Unknown Advance Directives Latest Code Status on File Code Status Date Activated Date Inactivated Comments Full Code 04/14/2022 8:43 PM Healthcare Agents on File Name Relationship Healthcare Agent Relationshi p Communication Kiya Pocock Child Primary Decision Maker Advance Directive Response Recorded Date/ Time Advance Directives No February 12:26pm Date Activated Date Inactivated Comments 11/04/2018 3:48 AM 11/05/2018 4:08 PM Date Activated Date Inactivated Comments 10/30/2018 12:43 PM 11/03/2018 7:11 PM Advance Directive Response Recorded Date/ Time Advance Directives No April 9:29am Advance Directive Response Recorded Date/ Time Advance Directives No April 10:29am Chief Complaint and Reason for Visit Chief [...] 10:25am Viral URI April 26, 2024 2:29pm Chief Complaint Admit Date M25.552 - Pain in left hip January 31, 2025 8:06am [facility] OP/SP LT HIP PAIN NX January 31 9:45am Reason for Visit Admit Date Left hip pain January 31, 2025 9: 45am Primary osteoarthritis of left hip Augus t 2024 9:45am Strain of flexor muscle of left hip Augu st 2024 9:45am Additional Source Comments INFORMATION SOURCE (unrecogn ized section and content) DATE CREATED AUTHOR 03/16/2020 [facility] DATE CREATED AUTHOR AUTHOR'S ORGANIZ ATION 11/28/2021 [facility] DATE CREATED AUTHOR AUTHOR'S ORGANIZ ATION 01/15/2022 [facility] DATE CREATED AUTHOR AUTHOR'S ORGANIZ ATION 04/14/2022 [facility] DATE CREATED AUTHOR AUTHOR'S ORGANIZ ATION 04/16/2022 [facility] DATE CREATED AUTHOR AUTHOR'S ORGANIZ ATION 04/20/2022 [facility] DATE CREATED AUTHOR AUTHOR'S ORGANIZ ATION 04/26/2022 [facility] DATE CREATED AUTHOR AUTHOR'S ORGANIZ ATION 08/26/2022 [facility] DATE CREATED AUTHOR AUTHOR'S ORGANIZ ATION 09/26/2022 [facility] DATE CREATED AUTHOR AUTHOR'S ORGANIZ ATION 07/28/2024 [facility] DATE CREATED AUTHOR AUTHOR'S ORGANIZ ATION 09/27/2024 [facility] DATE CREATED AUTHOR AUTHOR'S ORGANIZ ATION 11/28/2024 [facility] DATE CREATED AUTHOR AUTHOR'S ORGANIZ ATION 02/04/2025 [facility] EPIC Source Comments (unrecognize d section and content) In the event this informatio n is protected by the Federal Confidentiality of Alcohol and Drug Abuse Patient Records regulations: The Federal rules restrict any use of the information to criminally investigate or prosecute any alcohol or drug abuse patient.[facility] Reason for Visit (unrecogniz ed section [...] Reclast Specialty Diagnoses / Procedures Referred By Contelías t Referred To Contact Diagnoses Osteopenia, unspecified location Procedures MT ZOLEDRONIC ACID 1MG Deepika Garcia MD [email or web address] [place] [address] Phone: tel: fax: Deepika Garcia MD [address] [place] [address] Phone: tel: fax: Referral ID Status Reason Start Date Expiration Date Visits Re quested Visits Authorized [id number] Closed 09/30/2024 09/30/2025 1 1 Reason Onset Date Comments Med Refill 01/04/2025 Reason Onset Date Comments Med Refill 01/19/2025 Reason Comments Toenail Care Pt is here today req uesting nail careSS: 10 Care Teams (unrecognized sec tion and content) [...] Team Status: Inactive Member Role Status Dates Jsesica Maxwell MD Primary Care Provider Active Start: April 26, 2024 End: April 26, 2024 Veronica Menjivar APRN [employer]IC[employer] PLUMBER-C Attending Provider Active Start: April End: April 26, 2024 Team Status: Active Member Role Status Dates Jessica Maxwell MD Primary Care Provide r, Attending Provider Active Start: November 26, 2023 [employer] Operator Relationship Specialty Start Date End Date Jessica Maxwell MD [address] [facility] [place] [id number] PCP - General Family Practice 03/30/14 Jayant Ambrocio [address] [place] [facility] [place] [place] [place] [address] Cardiology 11/18/19 [employer] Relationship Specialty Start Date End Date Jessica Maxwell MD [address] [facility] [place] [id number] PCP - General Family Medicine 04/14/22 Team Status: Inactive Member Role Status Dates Jeb Salas DO Attending Provider Active [employer] Operator Relationship Specialty Start Date End Date David Arellano DO [address] [facility] [address] [place] [address] PCP - General Family Medicine 03/27/23 [employer] Operator Relationship Specialty Start Date End Date David Arellano DO [address] [facility] [address] [place] [address] PCP - General Family Medicine 03/27/23 Team [...] NICK Dorado Attending Provider Active Start : March 15th, 2024 Team Status: Inactive Member Role Status Dates Jessica Maxwell MD Primary Care Provide r, Attending Provider Active Start: September 18, 2023 End: September 18, 2023 [employer] Operator Relationship Specialty Start Date End Date Jessica Maxwell MD [address] [place], [place] [id number] PCP - General 02/21/17 [employer] Operator Relationship Specialty Start Date End Date Jessica Maxwell MD [address] [place] [address] PCP - General 02/21/17 [employer] Operator Relationship Specialty Start Date End Date Halima Hooks MD [address], [place] [address] PCP - General Internal Medicine 07/27/24 [employer] Operator Relationship Specialty Start Date End Date Halima Hooks MD [address], [place] [address] PCP - General Internal Medicine 07/27/24 [employer] Operator Relationship Specialty Start Date End Date Halima Hooks MD [address], [place] [address] PCP - General Internal Medicine 07/27/24 [employer] Operator Relationship Specialty Start Date End Date Halima Hooks MD [address], [place] [address] PCP - General Internal Medicine 07/27/24 [employer] Operator Relationship Specialty Start Date End Date Anthony Engle MD [address], [place] [address] PCP - General Pediatrics 10/27/24 [employer] Operator Relationship Specialty Start Date End Date Anthony Engle MD [address] [place] [address] PCP - General Pediatrics 10/27/24 [employer] Operator Relationship Specialty Start Date End Date Halima Hooks MD [address], [place] [address] PCP - General Internal Medicine 07/27/24 [employer] Operator Relationship Specialty Start Date End Date Halima Hooks MD [address], [place] [address] PCP - General Internal Medicine 07/27/24 [employer] Operator Relationship Specialty Start Date End Date Halima Hooks MD [address], [place] [address] PCP - General Internal Medicine 07/27/24 [employer] Operator Relationship Specialty Start Date End Date Halima Hooks MD [address], [place] [address] PCP - General Internal Medicine 07/27/24 Team Status: Active Member Role Status Dates PHYSICIAN NO FAMILY Primary Care Provider Active Team Status: Active Member Role Status Dates PHYSICIAN NO FAMILY Primary Care Provider Active Start: January 31, 2025 Jeb Salas DO Attending Provider Active S tart: January 31, 2025 Team Status: Inactive Member Role Status Dates PHYSICIAN NO FAMILY Primary Care Provider Active Start: January 31, 2025 End: January 31, 2025 Jeb Salas DO Attending Provider Active S tart: January 31, 2025 End: January 31, 2025 [employer] Operator Relationship Specialty Start Date End Date Anthony Engle MD [address] [place], [address] [address] PCP - General Pediatrics 10/27/24 [employer] Operator Relationship Specialty Start Date End Date Anthony Engle MD [address] [place], [address] [address] PCP - General Pediatrics 10/27/24 Ordered Prescriptions (unrec ognized section and content) [...] Mcarthur RN) 0610 (Given - Provider: Aide Fong RN)1541 (Given - Provider: Elaine Degroot, DILAN)2200 (Due) [...] PRN, 1 dose, Starting on Fri04/14/22 at 193, Until Fri04/14/22 at 1936, Other 1936 (Given - Provider: Asia Gonzalez - Comment: [id number] 09/2024) ondansetron (ZOFRAN) injection 4 mg([employer] [...] BE BASED ON THE PRIMARY CLINICAL RECORDS. [employer] provides no warranty or guarantee of the accuracy or completeness of information in this document.
== END 2025-02-16 14:23 | disposition home or self-care (01) ==
LOC: PM 14:23
PROVIDERS: PCP Student in an Organized Health Care Education/Training Program; Visit Provider Nurse Practitioner
DX: M46.1 Sacroiliitis, not elsewhere classified (principal)
CPT/HCPCS: G0463

== ENCOUNTER 2025-05-16 08:21 | Day surgery (SDC) | payer MEDICARE, OTHER, SELFPAY ==
--- OUTSIDE RECORDS SUMMARY | 2025-05-16 08:32 | XMS_ITS | CCD ---
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 Name Role Phone Jessica Maxwell MD Primary Care Provider [phone] Jayant Ambrocio Unavailable Jeb Salas Unavailable PROVIDER, UNKNOWN Admitting Unavailable PROVIDER, UNKNOWN Attending Unavailable Jessica Maxwell MD Primary Care Provider [phone] MITALI NARAYAN Consulting Unavailable JESSICA MAXWELL Primary Care Unavailable MITALI NARYAAN Admitting Unavailable MITALI NARAYAN Attending Unavailable MITALI [...] Provider Jessica Maxwell MD Primary Care Provider DEEPIKA GARCIA Attending Unavailable JESSICA MAXWELL Referring Unavailable JESSICA MAXWELL Primary Care Unavailable MOUNA DOE Attending Unavailable JESSICA MAXWELL Referring Unavailable JESSEE, [...] Shaik EAGLE, Anthony Martinez Primary Care Provider NO FAMILY, PHYSICIAN Primary Care Provider Unava ilable Jeb Salas DO Attending Provider WERNER NOLASCO Attending Unavailable WERNER NLOASCO Attending Unavailable Sha Juarez Primary Care Unavailable Sha Juarez Attending Unavailable Sha Juarez Admitting Unavailable JAYANT AMBROCIO JR Referring Unavailable JESSEE, MUHAMID M Primary Care Unavailable DEEPIKA GARCIA Referring Unavailable JESSEE, MUHAMID M Primary Care Unavailable DEEPIKA GARCIA Referring Unavailable JESSEE, MUHAMID M Primary Care Unavailable JESSEE, MUHAMID M Primary Care Unavailable HARRIETT ALBERTS Admitting Unavailable GM CERRATO Attending Unavailable JAYANT AMBROCIO JR Referring Unavailable JESSEE, MUHAMID M Primary Care Unavailable Allergies Allergy ClassificationReported Allergen(s)Allergy TypeDate of OnsetReaction(s) Facility (20 sources)Sulfonamides (Antibiotic); Translations: [SULFA (SULFONAMIDE ANTIBIOTICS)]Drug Dsddtkirrxw70-60-4702Oonh, UnknownA[facility] (1 source)sulfaSALAzineDrug AllergyUnknoI-[facility] i[facility]ipd Other (1 source)Sulfonamides (Antibiotic)Propensity to adverse reactions to drug 12-89-6393[facility] (2 sources)Sulfonamides (Antibiotic)Drug allergy (disorder)29-85-1798[facility] (20 sources)celecoxib; Translations: [CELECOXIB]Drug Vblassb86-16-7342Ksdigmm, [facility] - CantonComment on above:Onset Date: 05/24/2013 (1 source)patient allergy list reviewed by nurse or physiciaPropensity to adverse salyjjjvj78-08-3434Fmbgedo:[facility] Other (1 source)Allergies ReconciledPropensity to adverse reactionsHealthsouth Hospital Of Terre Hautezappitcolumbia regional hospital iFlipd Other (7 sources)celecoxibDrug Srhlzgx16-50-7240BBHX CARDFREE (20 sources)pantoprazole; Translations: [PANTOPRAZOLE]Drug Obwppsf13-24-0545 [facility] (20 sources)Other; Translations: [OTHER]Propensity to adverse reactions 11-33-2246LxrFjjvmp [employer] [facility] Work Phone: Medications Current Medications MedicationDrug Class(es)DatesSig (Normalized)Sig (Original)acetaminophen 500 mg oral tablet (19 sources)Start: 24-69-0485glhe 2 tablets by mouth every six hours as needed for painacetaminophen (TYLENOL EXTRA STRENGTH) 500 mg tablet Take 2 tablets (1,000 mg total) by mouth every6 (six) hours as needed for pain. 30 tablet 02/28/2025 ActiveStart: 02-27-2025 End: 08-11-2633iapi 1000 mg intravenously every six hours1,000 mg, intravenous, at 400 mL/hr, Administer over 15 Minutes, Every 6 hours, First dose on Sun at 1415, For 24 hoursStart: 02-26-2025 End: 44-30-6751tvev 650 mg by mouth every six hours as needed for qusk895 mg, oral, Every 6 hours PRN, mild pain - pain scale 1-3, Starting on 02/26/25 at 1404, ShakeWell.Start: 02-25-2025 End: 30-77-8799ujwb 1 tablet by mouth every four hours as needed for pain and fever and hzrtgwou137 mg, oral, Every 4 hours PRN, mild pain - pain scale 1-3, temperature greater than 38 C, headaches, Temperature greater than 38.3 C, Starting on Fri02/25/25 at 1430, Scheduling/ADT, [Warning: Total Acetaminophen not to exceed more than 4 grams (4000 mg) in 24 hours]Start: 02-25-2025 End: 52-46-6948jckw 500 mg by mouth vagz190 mg, oral, Once, On Fri02/25/25 at 1018, For 1 doseStart: 63-08-6888phda 2 tablets by mouth every six hours as needed for painacetaminophen (TylenoL) 325 mg tablet Take 2 tablets (650 mg total) by mouth every 6 (six) hours asneeded for pain. 30 tablet 12/01/2023 ActiveStart: 15-95-6164odlqgmpdidmvq (TYLENOL) tablet 1,000 mgtake 1 tablet by mouth every six hoursTylenol Extra Strength 500 MG 1 tablet as needed Orally every 6 hrs Not-Taking/PRNaluminum hydroxide 40 mg/ml / magnesium hydroxide 40 mg/ml / simethicone 4 mg/ml oral suspension (1 source)Start: 57-54-7988jtgk 30 mL by mouth four times daily at bedtime as yhjcbh38 mL, oral, 4 times daily after meals and at bedtime as needed, dyspepsia, Starting on Fri02/25/25at 1430, Scheduling/ADT, Look-alike/sound-alike medication - verify indication for use. Primo fuentes., Indications: dyspepsiaaspirin 81 mg delayed release oral tablet (20 sources)Platelet Aggregation Inhibitor, Nonsteroidal Anti-inflammatory Drug Start: 92-87-2445yehd 1 tablet by mouth twice dailyAspirin 81 mg tablet,delayed release (DR/EC) Active 81 MG PO Twice daily September 17, 2023 12:00am Fr eeTextSi tablet Orally BID; Note: Source Status: Not-TakingundefinedPRN; Refills: 0; Qty: 28 Tablet; Provider: Ginna Ramos Complies with drug therapy Start: 75-71-7192jwzo 1 tablet by mouth every twelve hoursAspirin 81 MG 1 tablet Orally BID for 14 days Sep, Not-Taking/PRNtake 1 tablet by mouth once dailyaspirin, enteric coated (ASPIRIN, ENTERIC COATED) 81 mg EC tablet Take 81 mg by mouth once daily. 0ActiveComment on above:Take 81 mg by mouth once daily. cholecalciferol 0.125 mg oral tablet (20 sources)Vitamin DStart: 14-71-8886tfmy 5000 [IU] by mouth once daily5,000 Units, oral, Daily, First dose on 02/26/25 at 1145Start: 04-29-2024 End: 07-62-7903uroh 1 tablet by mouth once daily in the morningcholecalciferol, vitamin D3, 5,000 units tablet TAKE 1 TABLET BY MOUTH EVERY DAY IN THE MORNING 90 tablet 04/05/2025 ActiveclonazePAM 0.5 mg oral tablet (20 sources)BenzodiazepineStart: 84-58-5682sbmf 0.25 mg by mouth three times daily as needed0.25 mg, Oral, 3 TIMES DAILY PRN, Starting on 04/15/22 at 0013, Until Discontinued, Anxiety, facial ticStart: 12-20-2019 End: 44-87-3410avxd 1 tablet by mouth twice daily as needed for anxiety clonazePAM (KlonoPIN) 0.5 mg tablet Indications: Anxiety Take 1 tablet (0.5 mg total) by mouth 2 (two) times a day as needed for anxiety for up to 10 days. 20 tablet 02/28/2025 03/10/2025 Activetake 0.25 mg by mouth three times daily as neededclonazePAM (KLONOPIN) 0.5 MG tablet Take 0.25 mg by mouth 3 times daily as needed. 0 Activetake 1 tablet by mouth every twenty-four hoursclonazePAM 0.5 MG 1 tablet at bedtime Orally Once a day ActiveComment on above:Take 0.5 mg by mouth twice daily as needed.clopidogrel 75 mg oral tablet (20 sources)P2Y12 Platelet InhibitorStart: 03-25-2024 End: 35-14-2864mrpm 1 tablet by mouth once dailyclopidogreL (PLAVIX) 75 mg tablet TAKE 1 TABLET BY MOUTH EVERY DAY 90 tablet 1 11/14/2024 ActiveStart: 13-13-0341qznj 1 tablet by mouth once dailyclopidogrel (PLAVIX) 75 MG tablet Take 1 tablet by mouth daily Hold plavix x 2 weeks . Follow up with primary providers 30 tablet 3 04/29/2022 Active End: 48-02-8179zotn 1 tablet by mouth in the morningclopidogrel (Plavix) 75 MG tablet Take 75 mg by mouth in the morning. Activedocusate sodium 50 mg / sennosides, group home 8.6 mg oral tablet (1 source)Start: 45-65-4039rhoo 1 tablet by mouth every twelve hours as needed for constipation1 tablet, oral, Every 12 hours PRN, constipation, Starting on Fri02/25/25 at 1430, Scheduling/ADT0.4 ml enoxaparin sodium 100 mg/ml prefilled syringe (1 source)Low Molecular Weight HeparinStart: mg, subcutaneous, Daily, First dose on Fri02/26/25 at 0600, Scheduling/ADT, When Creatinine Clear ance 30 mL/min or greater Look-alike/sound-alike medication - verify indication for use.fluconazole 150 mg oral tablet (3 sources)Azole AntifungalStart: 08-94-6690Hdurdavxwyi 150 mg tablet Active 150 MG PO Q3D December 30, 2023 12:00am Complies with drug therapyglucagon (rdna) 1 mg injection (1 source)Antihypoglycemic AgentStart: mg, intramuscular, As needed, low blood sugar, blood glucose less than 70 mg/dL and unconscious or NPO without IV access., Starting on Fri02/25/25 at 1430, Scheduling/ADT, If conscious and not NPO,immediately follow with meal tray or high protein (7Grams) snack if tray not available. If NPO, initiate IV 5% Dextrose/Water at 100 mL/hr and contact prescriber for additional orders. If blood glucose is not greater than 70 mg/dL after initial treatment, repeat treatment.150 ml glucose 50 mg/ml injection (3 sources)Start: g, oral, As needed, low blood sugar, blood glucose less than 70 mg/dL, Starting on Fri02/25/25 at 1430, Scheduling/ADT, If patient conscious and taking PO. If blood glucose is not greater than 70 mg/dL after initial treatment, repeat treatment.Start: mL, intravenous, As needed, low blood sugar, blood glucose less than 70 mg/dL and unconscious or NPO with IV access, Starting on Fri02/25/25 at 1430, Scheduling/ADT, Push over 1-3 minutes STAT. Ifconscious and not NPO, immediately follow with meal tray or high protein (7 grams) snack if tray not available. If NPO, initiate 5% dextrose in water at 100 mL/hr and contact prescriber for additional orders. If blood glucose is not greater than 70 mg/dL after initial treatment, repeat treatment. VESICANT (RED) Warning: HYPERTONIC solution.Start: 02-25-2025 End: 40-06-3408mrjv 70 mg intravenously every qdku613 mL/hr, intravenous, Continuous PRN, blood glucose less than 70 mg/dL, Starting on Fri02/25/25 at 1430, For 365 days, Scheduling/ADT, Use immediately following dextrose 50% or glucagon treatment for patients who are unconscious or NPO. Contact prescriber for additional orders. If blood glucose is not greater than 70 mg/dL after initial treatment, repeat treatment.hydrocortisone 25 mg/ml topical cream (20 sources)CorticosteroidStart: 77-05-7246hafepphzicvspg (ANUSOL-HC) 2.5 % rectal cream Insert 1 Application into the rectum in the morning and 1 Application before bedtime. 30 g 1 01/23/2025 ActiveStart: 08-22-2023 Hydrocortisone 2.5 % cream with perineal applicator Active 0 .ROUTE .COMPLEX August 22, 2023 1:33pm APPLY TO AFFECTED AREA 1-2 TIMES DAILY NEEDED Complies with drug therapyStart: 08-22-2023 End: 20-41-7017Xqfsiymvdxthsk 2.5 % cream Discontinued 1 APPLIC TOPICAL August 22, 2023 12:00am August 22, 2023 1:33pm APPLY TO AFFECTED AREA 1-2 TIMES DAILY NEEDED End: 17-34-9222hdkemyoucjdjsl (ANUSOL-HC) 2.5 % rectal cream Insert 1 Application into the rectum in the morning and 1 Application before bedtime. 01/19/2025 Discontinued (Reorder)Hydrocortisone (Perianal) 2.5 % APPLY TO AFFECTED AREA 1-2 TIMES DAILY NEEDED for 15 ActiveHydrocortisone (Perianal) 2.5 % APPLY TO AFFECTED AREA 1-2 TIMES DAILY NEEDED for 15 Activeibuprofen 800 mg oral tablet (1 source)Nonsteroidal Anti-inflammatory DrugStart: 48-21-3394tfey 1 tablet by mouth every six hours as needed for fhgk122 mg, oral, Every 6 hours PRN, moderate pain - pain scale 4-6, Starting on 02/27/25 at 1406, Lo ok-alike/sound-alike medication - verify indication for use. Take/Give with food or milk.ipratropium bromide 0.042 mg/actuat metered dose nasal spray (20 sources)AnticholinergicStart: 55-74-9252oqou 1 spray(s) nasal route in the morningipratropium (ATROVENT) 42 mcg (0.06 %) nasal spray Indications: Obstructive airway disease ([place]) SPRAY 1 SPRAY INTO EACH NOSTRIL IN THE MORNING 15 mL 3 03/02/2025 ActiveStart: 01-23-2025 End: 53-99-0652zgxy 1 spray(s) nasal route in the morningipratropium (ATROVENT) 42 mcg (0.06 %) nasal spray Indications: Obstructive airway disease ([place]) Administer 1 spray into each nostril in the morning. 15 mL 3 01/23/2025 03/02/2025 DiscontinuedStart: 11-08-2024 End: 44-32-3756asse 1 spray(s) nasal route in the morningipratropium (ATROVENT) 42 mcg (0.06 %) nasal spray Indications: Obstructive airway disease ([place]) Administer 1 spray into each nostril in the morning. 15 mL 3 11/08/2024 01/19/2025 Discontinued (Reorder)Start: 86-50-1049qciq 2 spray(s) nasal route once dailyIpratropium [facility] 42 mcg (0.06 %) spray,non-aerosol Active 0 .ROUTE .COMPLEX 45 October 20, 2023 12:40pm SPRAY 2 SPRAYS INTO EACH NOSTRIL ONCE A DAY Complies with drug therapyStart: 09-17-2023 End: 05-84-5092ltmx 2 spray(s) nasal route once dailyIpratropium [facility] 42 mcg (0.06 %) spray,non-aerosol Discontinued 2 SPRAY INTRANASAL Daily September 17, 2023 12:00am October 20, 2023 12:40pm FreeTextSi sprays in each nostril Nasally Once a Day; Note: Source Status: Taking; Refills: 5; Provider: Alissa Hoffman Eipratropium (Atrovent) 0.03 % nasal spray Administer 2 sprays into each nostril every 12 (twelve) hours. Activetake 2 spray(s) nasal route once daily Ipratropium [facility] 0.06 % 2 sprays in each nostril Nasally Once a Day for 30 days Activetake 2 spray(s) nasal route once dailyIpratropium [facility] 0.06 % 2 sprays in each nostril Nasally Once a Day for 30 days Activetake 2 spray(s) nasal route three times dailyIpratropium [facility] 0.06 % 2 sprays in each nostril Nasally Three times a day Activetake 2 spray(s) nasal route four times daily ipratropium (ATROVENT) 0.06 % nasal spray 2 sprays by Each Nostril route 4 times daily 0 Activeipratropium bromide (ATROVENT) 42 mcg (0.06 %) nasal spray Use 2 Sprays in the nose once daily. 0 ActiveComment on above:Use 2 Sprays in the nose once daily.Lactobacillus acidophilus (20 sources)Lactobacillus acidophilus (PROBIOTIC ORAL) Take by mouth. Lactobacillus acidophilus (PROBIOTIC ORAL) Take by mouth. Activelevothyroxine sodium 0.05 mg oral tablet (20 sources)l-ThyroxineStart: 43-01-638254 mcg, oral, Every morning before breakfast, First dose on 02/26/25 at 1145, TAKE 1 TABLET BY MOUTH EVERY DAY IN THE MORNING ON EMPTY STOMACH FOR 90 DAYS Look-alike/sound-alike medication. Verifyindication for use Administer on empty stomach at least ONE hour before or TWO hours after food Enteral Feeding: For 7 days or less of tube feeding- do NOT hold tube feedings, after 7 days- hold tubefeedings ONE hour before and ONE hour after administration DOES NOT APPLY TO NEONATES Monitor thyroid function tests weeklyStart: 04-15-2022 End: 42-49-4940xzgl 1 tablet by mouth once daily in the morninglevothyroxine (SYNTHROID, LEVOTHROID) 50 MCG tablet Indications: Postprocedural hypothyroidism , Postoperative hypothyroidism TAKE 1 TABLET BY MOUTH EVERY DAY IN THE MORNING ON EMPTY STOMACH FOR 90 DAYS 90 tablet 3 06/28/2024 Activetake 1 tablet by mouth once daily in the morningLevothyroxine Sodium 50 MCG 1 tablet in the morning on an empty stomach Orally Once a day ActiveComment on above:Take 50 mcg by mouth daily before breakfast.liothyronine sodium 0.005 mg oral tablet (20 sources)l-TriiodothyronineStart: 86-84-6022qdsw 1 tablet by mouth once daily liothyronine (CYTOMEL) 5 MCG tablet Indications: Postprocedural hypothyroidism , Postoperative hypothyroidism TAKE 1 TABLET BY MOUTH EVERY DAY ON AN EMPTY STOMACH 90 tablet 3 06/11/2024 Activetake 1 tablet by mouth every twenty-four hoursLiothyronine Sodium 5 MCG 1 tablet on an empty stomach Orally Once a day Nvvgmq94 ml magnesium sulfate 40 mg/ml injection (2 sources)Start: ,000 mg, intravenous, at 25 mL/hr, Administer over 120 Minutes, As needed, Magnesium level 1.7 to 1.9 mg/dL, or Ionized Magnesium level 0.45 to 0.5 mmol/L., Starting on Fri02/25/25 at 1430, Scheduling/ADT, Recheck magnesium level 4 hours after infusion complete. With each magnesium result continuethe replacement orders as needed.Start: ,000 mg, intravenous, at 25 mL/hr, Administer over 240 Minutes, As needed, Magnesium level 1.6 mg/dL or less, or Ionized Magnesium level 0.44 mmol/L or less, Starting on Fri02/25/25 at 1430, Scheduling/ADT, Recheck magnesium level 4 hours after infusion complete. With each magnesium result continue the replacement orders as needed.2 ml ondansetron 2 mg/ml injection (3 sources)Serotonin-3 Receptor AntagonistStart: 05-43-1377ukzb 4 mg intravenously every six hours as needed for nausea and vomiting4 mg, intravenous, Every 6 hours PRN, nausea, vomiting, Starting on Fri02/25/25 at 1430, Scheduling/ADT, Intravenous administration preferred to be given over 2-5 minutes.Start: 29-82-7600qnvb 1 tablet by mouth every eight hours as needed for nauseaondansetron ODT (ZOFRAN ODT) 4 mg disintegrating tablet Dissolve 1 tablet (4 mg total) on tongue every 8 (eight) hours as needed for nausea for up to 10 doses. 10 tablet 12/02/2023 Activeondansetron (ZOFRAN-ODT) disintegrating tablet 4 mg (1 source)Start: 71-89-4558ucupcfqasxo (ZOFRAN-ODT) disintegrating tablet 4 mg polyethylene glycol 3350 14755 mg powder for oral solution (1 source)Osmotic LaxativeStart: 12-57-9032aucgriezjhxs glycol (GLYCOLAX) packet 17 gPotassium Chloride (1 source)Start: 43-55-6375efgtvbxum chloride (K-TAB,KLOR-CON) CR tablet 30-50 mEqsaccharomyces boulardii 250 mg oral capsule (7 sources)take 1 capsule by mouth in the morningsaccharomyces boulardii (Florastor) 250 MG capsule Take 250 mg by mouth in the morning and 250 mg before bedtime. Activesennosides, group home 8.6 mg oral tablet (1 source)Start: 54-49-2876uhzle (SENOKOT) tablet 8.6 mg125 ml sodium chloride 9 mg/ml prefilled syringe (8 sources)Start: mL, intravenous, Every 12 hours scheduled, First dose on Fri02/25/25 at 1445, Scheduling/ADTStart: mL, intravenous, As needed, line care, before and after each intermittent use, Starting on Fri02/25/25 at 1430, Scheduling/ADTStart: 06-58-2310klho 20 mL intravenously every hour as mL/hr, intravenous, Continuous PRN, to maintain patency of lines, Starting on Fri02/25/25 at 1430, Scheduling/ADTStart: 38-80-8896jdeb 25 mL intravenously every hour as nmpajg72 mL, intravenous, at 100 mL/hr, Administer over 15 Minutes, As needed, line care, line care afterIVPB administration, Starting on Fri02/25/25 at 1430, Scheduling/ADTStart: 04-14-2022 sodium chloride flush 0.9 % injection 5-40 mLStart: 04-14-2022 End: .9 % sodium chloride infusionspironolactone 25 mg oral tablet (20 sources)Aldosterone AntagonistStart: 43-19-2621mtiq 25 mg by mouth once daily25 mg, oral, Daily, First dose on 02/26/25 at 1145Comment on above:Take 25 mg by mouth once daily.terbinafine (7 sources)Allylamine AntifungalTerbinafine Active Completed/Discontinued Medications MedicationDrug Class(es)DatesSig (Normalized)Sig (Original)ALPRAZolam 0.25 mg oral tablet (1 source)Benzodiazepinetake 1 tablet by mouth three times dailyALPRAZolam (XANAX) 0.25 mg tablet Take 0.25 mg by mouth three times daily. 0 ActiveComment on above:Take 0.25 mg by mouth three times daily.bisacodyl 5 mg delayed release oral tablet (1 source)Stimulant LaxativeStart: 36-73-8063tckredudg EC (DULCOLAX) 5 mg EC tablet as directed. 0 01/13/2020 ActiveComment on above:as directed.calcium carbonate 1250 mg / cholecalciferol 200 unt oral tablet (1 source)Vitamin Dtake 2 tablets by mouth twice eyaedhxurjhf-eiskrkvdp-stzxhlk D3 500 mg(1,250mg) -200 unit per tablet Take 2 tablets by mouth twice daily. 0 ActiveComment on above:Take 2 tablets by mouth twice daily.donepezil hydrochloride 10 mg oral tablet (1 source)Start: 25-37-1576hlvk 1 tablet by mouth once dailydonepezil (ARICEPT) 10 mg tablet Take 10 mg by mouth once daily. 0 10/18/2019 ActiveComment on above:Take 10 mg by mouth once daily.ferrous sulfate 325 mg oral tablet (1 source)take 1 tablet by mouth twice dailyferrous sulfate 325 mg (65 mg iron) tablet Take 325 mg by mouth twice daily. 0 ActiveComment on above:Take 325 mg by mouth twice daily.iopamidol (ISOVUE-370) 76 % injection 130 mL (1 source)Start: 04-14-2022 End: 92-40-4468nkykfcrcq (ISOVUE-370) 76 % injection 130 mLmeloxicam 15 mg oral tablet (14 sources)Nonsteroidal Anti-inflammatory DrugStart: 12-30-2023 End: 31-13-4006modq 1 tablet by mouth once dailyMeloxicam 15 mg tablet Discontinued 0 .ROUTE .COMPLEX December 30, 2023 10:42am January 31, 2025 1 0:11am TAKE 1 TABLET BY MOUTH EVERY DAYStart: 07-24-2023 End: 97-88-9157xlof 1 tablet by mouth once dailyMeloxicam 15 mg tablet Discontinued 15 MG PO Daily July 24, 2023 1:00am December 30, 2023 10: 42amMeloxicam 15 MG TAKE 1 TABLET BY MOUTH EVERY DAY FOR 30 DAYS for 30 Active metoprolol tartrate 25 mg oral tablet (20 sources)beta-Adrenergic BlockerStart: 09-17-2023 End: 08-96-8992jplv 1 tablet by mouth twice daily at mealtimeMetoprolol Tartrate 25 mg tablet Discontinued 25 MG PO Twice daily September 17, 2023 12:00am February 24, 2024 10:44am FreeTextSi tablet with food Orally Twice a day; Note: Source Status: Taking; Provider: Alissa Hoffman ( )Start: 01-86-1656gryl 25 mg by mouth twice daily25 mg, Oral, 2 TIMES DAILY, First dose on Fri04/16/22 at 0900, Until DiscontinuedStart: 15-20-3358ziaqwworzd tartrate, short acting, (LOPRESSOR) 25 mg tablet Take 12.5 mg by mouth twice daily. 0 06/2018 Activetake 1 tablet by mouth in the morningmetoprolol tartrate (Lopressor) 25 MG tablet Take 25 mg by mouth in the morning and 25 mg before bed time. ActiveComment on above:Take 12.5 mg by mouth twice daily.OTC PRODUCT (2 sources)OTC PRODUCT Kenzen BDZ Support Strength and Density 2 tablets once a day at bedtime 0 ActiveOTC PRODUCT 1 tablet three times daily. Strophantil 0 ActiveComment on above:Kenzen BDZ Support Strength and Density 2 tablets once a day at bedtime1 tablet three times daily. Strophantilpantoprazole 40 mg delayed release oral tablet (1 source)Proton Pump Inhibitortake 1 tablet by mouth once dailypantoprazole DR (PROTONIX) 40 mg tablet Take 40 mg by mouth once daily. 0 ActiveComment on above:Take 40 mg by mouth once daily.Tylenol Extra Strength 500 MG (15 sources)take 1 tablet by mouth every six hours as neededTylenol Extra Strength 500 MG 1 tablet as needed Orally every 6 hrs Not-Takingtake 1 tablet by mouth every six hours as neededTylenol Extra Strength 500 MG 1 tablet as needed Orally every 6 hrs Activewarfarin sodium 10 mg oral tablet (1 source)Vitamin K AntagonistStart: 58-09-5618ycliwlwq (COUMADIN) 10 mg tablet 10mg alternating with 15mg nightly 0 11/11/2019 ActiveComment on above:10mg alternating with 15mg apphpqt820 ml zoledronic acid 0.05 mg/ml injection (1 source)BisphosphonateStart: 11-26-2024 End: mg, intravenous, at 400 mL/hr, Administer over 15 Minutes, Once, On Fri11/26/24 at 1500, For 1 dose, Run in a line infusing NS or D5W only. Flush with NS before and after each dose.Start: 11-26-2024 End: 55 mg, intravenous, at 400 mL/hr, Administer over 15 Minutes, Once, On Fri11/26/24 at 1500, For 1 dose, Run in a line infusing NS or D5W only. Flush with NS before and after each dose. Problems Active Problems Problem ClassificationProblemDateDocumented DateEpisodic/ChronicAbdominal pain (2 sources)Generalized abdominal pain; Translations: [Generalized abdominal pain]Onset: 44-94-1496ZajqblafYtjayjohbghskc/social admission (3 sources)Patient encounter status; Translations: [Other specified counseling] 16-91-8685CatchvbgIbrlixd on above:Discussed DNR v. DNR CC A - Pt and both agreed to DNR CCA - forms signed, original given topt. call if further questions.Anxiety disorders (13 sources)Generalized anxiety disorder; Translations: [Generalized anxiety disorder]Onset: [id number] dysrhythmias (20 sources)Atrial fibrillation; Translations: [Unspecified atrial fibrillation] Onset: [id number] obstructive pulmonary disease and bronchiectasis (3 sources)Obstruction of lower respiratory tract; Translations: [Chronic obstructive pulmonary disease, unspecified]01-13-9236NjiesiqVtadndntemr and hemorrhagic disorders (20 sources)Thrombocytopenic disorder; Translations: [Thrombocytopenia, unspecified]Onset: [id number] and hemorrhagic disorders (1 source)Spontaneous ecchymosis; Translations: [Spontaneous ecchymoses]Episodic Complications of surgical procedures or medical care (6 sources)Postoperative hypothyroidism; Translations: [Postprocedural hypothyroidism]Onset: 130781-09-2284ObmttvbLynntrcnpi disorders (20 sources)Cardiac pacemaker in situ; Translations: [Presence of cardiac pacemaker]Onset: 107357-77-0830LwrznbtBpolgaytop and other anemia (1 source)Iron deficiency anemia due to blood loss; Translations: [Iron deficiency anemia secondary to blood loss (chronic)]Onset: ChronicDelirium, dementia, and amnestic and other cognitive disorders (1 source)Unspecified dementia without behavioral disturbance; Translations: [UNSP GABRIELLA UNS SEV W/O DSTRB ANXTY]Onset: 98-65-7063PgigncrA Codes: Fall (1 source)FallOnset: 02-25-2025E Codes: Natural/environment (1 source)Dog bite; Translations: [Bitten by dog, initial encounter]Episodic Essential hypertension (20 sources)Essential hypertension; Translations: [Essential (primary) hypertension]Onset: 69-84-5669GjdjofdOnsnkmqf of lower limb (2 sources)Closed fracture of ankle; Translations: [Other fracture of left lower leg, initial encounter for closed fracture]50-57-5316QdgbwpnuXbuzm valve disorders (20 sources)Nonrheumatic mitral (valve) insufficiency; Translations: [Rheumatic disease of mitral valve]Onset: 633417-20-0306XwgxfybKazbksyohao (1 source)Thrombosed hemorrhoids; Translations: [Perianal venous thrombosis] EpisodicMalaise and fatigue (20 sources)Fatigue; Translations: [Chronic fatigue, unspecified]ChronicMycoses (4 sources)Onychomycosis due to dermatophyte ; Translations: [Tinea unguium] 74-27-2948EuregsytAsvumosvmmt chest pain (2 sources)Chest pain; Translations: [Chest pain, unspecified]Onset: 01-16-2018 EpisodicNutritional deficiencies (20 sources)Vitamin D deficiency, unspecified; Translations: [Vitamin D deficiency]Onset: 66-27-9981LolohotQguedmfjsebkgz (20 sources)Osteoarthritis of right hip joint; Translations: [Unilateral primary osteoarthritis, right hip]36-61-2135DbsyujcWrbhnjgfcwuz (5 sources)Primary osteoporosis; Translations: [Age-related osteoporosis without current pathological fracture]Onset: 119711-24-2788TceguiwCpkas and ill- defined cerebrovascular disease (20 sources)Cerebrovascular disease; Translations: [Cerebrovascular disease, unspecified]Onset: 904168-12-3895AhvnikgZfdil connective tissue disease (1 source)Neuralgia; Translations: [Neuralgia and neuritis, unspecified]Episodic Other connective tissue disease (1 source)Pain in limb; Translations: [Pain in left lower leg]EpisodicOther connective tissue disease (1 source)Myalgia, other siteEpisodicOther connective tissue disease (1 source)Pain in toe; Translations: [Pain in unspecified toe(s)]07-10-2023 EpisodicOther connective tissue disease (3 sources)Pain in hallux; Translations: [Pain in right toe(s)]10-27-2024 EpisodicOther ear and sense organ disorders (1 source)Impacted cerumen; Translations: [Impacted cerumen, unspecified ear] EpisodicOther endocrine disorders (20 sources)Hyperparathyroidism; Translations: [Hyperparathyroidism, unspecified]Onset: 222951-05-9757BljialyGhzkq female genital disorders (1 source)Noninflammatory disorder of the vagina; Translations: [Other specified noninflammatory disorders ofvagina]EpisodicOther female genital disorders (1 source)Hypertrophy of uterus; Translations: [Hypertrophy of uterus]Episodic Other female genital disorders (1 source)Disorder of female genital organs; Translations: [Unspecified condition associated with female genital organs and menstrual cycle]Episodic Other fractures (13 sources)Fracture of pubis; Translations: [Unspecified fracture of unspecified pubis, initial encounter for closed fracture]Onset: 02-25-2025 68-33-8346WilxagohMaaob fractures (1 source)Unspecified fracture of unspecified pubis, initial encounter for closed fracture; Translations: [Unspecified fracture of unspecified pubis, initial encounter for closed fracture]Onset: 44-29-7385NljwukxgOyvbk gastrointestinal disorders (1 source)Irritable bowel syndrome with diarrhea; Translations: [Irritable bowel syndrome with diarrhea]Onset: 56-82-8421MrkrdmlCkdyv hereditary and degenerative nervous system conditions (1 source)Essential tremor; Translations: [Essential tremor]Onset: 07-27-2024 ChronicOther hereditary and degenerative nervous system conditions (20 sources)Essential tremor; Translations: [Essential tremor]Onset: 07-27-2024 64-12-7752WrcwesoQavis hereditary and degenerative nervous system conditions (1 source)Drug-induced tardive dystonia; Translations: [Drug induced subacute dyskinesia]EpisodicOther inflammatory condition of skin (1 source)Itching of skin; Translations: [Pruritus, unspecified]EpisodicOther injuries and conditions due to external causes (1 source)Other injury of unspecified body region, initial encounterEpisodic Other liver diseases (1 source)Large liver; Translations: [Hepatomegaly, not elsewhere classified] EpisodicOther non-traumatic joint disorders (6 sources)Pain in left hip; Translations: [PAIN IN LEFT HIP]Onset: 09-24-2022 EpisodicOther non-traumatic joint disorders (1 source)Arthralgia of the lower leg; Translations: [Pain in right knee] EpisodicOther non-traumatic joint disorders (1 source)Pain in right hip joint; Translations: [Pain in right hip]Episodic Other non-traumatic joint disorders (3 sources)Acute ankle pain; Translations: [Pain in left ankle and joints of left foot]93-21-4253YyfzinuhLacgd non-traumatic joint disorders (2 sources)Pain in left ankle and joints of left foot; Translations: [Pain in joint, ankle and foot]43-95-8425SohtsnvqMdbgr non-traumatic joint disorders (3 sources)Hip pain; Translations: [Pain in left hip]Onset: EpisodicOther nutritional; endocrine; and metabolic disorders (2 sources)Hypercalcemia; Translations: [HYPERCALCEMIA]Onset: 72-33-5744Cjvxxdj Other nutritional; endocrine; and metabolic disorders (11 sources)Hypercalcemia; Translations: [Hypercalcemia]Onset: 96-17-5244Cvrxngt Other screening for suspected conditions (not mental disorders or infectious disease) (1 source)Encounter for screening mammogram for malignant neoplasm of breast EpisodicOther skin disorders (4 sources)Dystrophia unguium; Translations: [Nail dystrophy]51-53-1806Qldnzdhq Other upper respiratory disease (1 source)Other specified disorders of nose and nasal sinuses; Translations: [Other specified disorders of nose and nasal sinuses]EpisodicOther upper respiratory infections (6 sources)Acute upper respiratory infection; Translations: [Acute upper respiratory infections of unspecifiedsite]Onset: 067633-11-0406Himnynnm Pulmonary heart disease (20 sources)Pulmonary hypertension; Translations: [Pulmonary hypertension, unspecified]Onset: 681307-82-2515KhbvmgvKbnamzss codes; unclassified (1 source)Family history of malignant neoplasm of gastrointestinal tract; Translations: [Family history of malignant neoplasm of digestive organs]Episodic Residual codes; unclassified (20 sources)Memory impairment; Translations: [Other amnesia]Onset: 04-18-2020 Resolved: 502636-47-3052OjpsmlufBodavpur codes; unclassified (2 sources)Other amnesia; Translations: [Other amnesia]Onset: 01-44-8382Klacpkeh Screening and history of mental health and substance abuse codes (1 source)Encounter for screening examination for other mental health and behavioral disorders; Translations:[Encounter for screening examination for other mental health and behavioral disorders]EpisodicSkin and subcutaneous tissue infections (1 source)Cellulitis and abscess of hand excluding digits; Translations: [Cellulitis and abscess of hand, except fingers and thumb]EpisodicSpondylosis; intervertebral disc disorders; other back problems (1 source)Other intervertebral disc displacement, lumbosacral region; Translations: [OTH IV DISC DISPLACEMENTLS REGION]Onset: 57-99-3964Szbhycn Spondylosis; intervertebral disc disorders; other back problems (8 sources)Sciatica, left side; Translations: [Cervicalgia]Onset: 12-16-2014 EpisodicSprains and strains (3 sources)Strain of muscle, fascia and tendon of left hip, subsequent encounter; Translations: [Strain of flexor muscle of left hip]Episodic Superficial injury; contusion (2 sources)Contusion of other part of head, initial encounter; Translations: [Contusion of hand]Onset: 84-43-8471KkicuswnQcesdfa disorders (20 sources)Hypothyroidism, unspecified; Translations: [Hypothyroidism]Onset: 46-09-5364ZbvzxauBqjbwnvwj cerebral ischemia (20 sources)Transient cerebral ischemia; Translations: [Unspecified transient cerebral ischemia]Onset: 530879-22-4398HppbyigIiewpycqvqoj (3 sources)Traumatic subdural hemorrhage with loss of consciousness status unknown, initial encounter; Translations: [Traumatic subdural hemorrhage with loss of consciousness status unknown, initial encounter]Onset: 04-15-2022 Unclassified (1 source)Pain in left hip; Translations: [Pain in left hip]Onset: 08-21-2022 Unclassified (1 source)LOW BACK PAIN, UNSPECIFIED; Translations: [LOW BACK PAIN, UNSPECIFIED] Onset: 54-92-0891Ejkrnorbbsab (1 source)CONTACT W/AND (SUSP) EXPOS COVID-19; Translations: [CONTACT W/AND (SUSP) EXPOS COVID-19]Onset: 41-42-9750Xhxffthhhbpo (1 source)Establish CareOnset: 95-36-0237Nwodnfrevyjf (1 source)illOnset: 20-91-0098Ibxfefrdycmz (1 source)Outpatient InfusionOnset: 55-62-4346Lhvws infection (1 source)Disease caused by 2019-nCoV; Translations: [COVID-19] Past or Other Problems Problem ClassificationProblemDateDocumented DateEpisodic/ChronicAcute cerebrovascular disease (20 sources)Hematoma of subdural space of neuraxis; Translations: [Subdural hematoma]Onset: 04-14-2022 Resolved: 26-18-3505VaakhboAejeremt reactions (1 source)Allergic contact dermatitis; Translations: [Allergic contact dermatitis, unspecified cause]Onset: 00-13-9834HwcvrxmlSzpnumf dysrhythmias (20 sources)Bradycardia; Translations: [Bradycardia, unspecified]Onset: 911772-64-3131HupumzesQuyyptckcq and other anemia (19 sources)Bone marrow disorder; Translations: [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]Onset: 07-28-2024 Resolved: 67-15-148338140570-30-2557RqtqmtdBrtkeqau mellitus without complication (1 source)Hyperglycemia; Translations: [Hyperglycemia, unspecified]Onset: 46-68-6677UywiabduY Codes: Fall (1 source)Fall on same level from slipping, tripping and stumbling with subsequent striking against other object, initial encounter; Translations: [FALL SAME LVL SLIP STRK OTH OBJ INT]Onset: 05-23-3220VtchiomdGkyhynlb of upper limb (1 source)3-part fracture of surgical neck of right humerus, initial encounter for closed fracture; Translations: [3-part fracture of surgical neck of right humerus, initial encounter for closed fracture]Onset: 26-94-8911Cskctmik Headache; including migraine (20 sources)Headache; Translations: [Headache, unspecified]Onset: 05-15-2015 09-36-8367XmkbpxckBkhxlogrudshs and screening for infectious disease (1 source)Encounter for immunization; Translations: [ENCOUNTER FOR IMMUNIZATION] Onset: 04-99-0451NvhifgkeVgoftadsmdca diseases of female pelvic organs (1 source)Acute vaginitis; Translations: [Acute vaginitis]Onset: 05-24-2013 EpisodicIntracranial injury (1 source)Traumatic subdural hemorrhage with loss of consciousness of 30 minutes or less, initial encounter; Translations: [TRAUM SUBDURAL HEM LOC 30 MN/< INIT] Onset: 15-80-9936DxzcudzkDshzmwn and fatigue (20 sources)Other fatigue; Translations: [Fatigue]Onset: 09-89-3765UtrcdganAiju disorders (20 sources)Mood disordersOnset: 012252-70-7568Epjm wounds of head; neck; and trunk (1 source)Laceration without foreign body of oral cavity, initial encounter; Translations: [LACERATION W/O FBORAL CAV INIT ENC]Onset: 62-31-6678DinepduxEfwtn aftercare (20 sources)Anticoagulant effect; Translations: [intermission coordinator (current) use of anticoagulants]Onset: 11-18-2019 Resolved: 530877-40-2650TrmopbwqBlmmn aftercare (1 source)intermission coordinator (current) use of antithrombotics/antiplatelets; Translations: [SKILLED NURSING ANTITHROMBOT/ANTIPLATLETS]Onset: 91-47-4963Blbcityj Other aftercare (1 source)Other long lines operator (current) drug therapy; Translations: [OTH GEOCHEMIST CURRENT DRUG THERAPY]Onset: 11-71-9799UwfbpwjkHqtrc aftercare (20 sources)Long-term current use of anticoagulant; Translations: [jail (current) use of anticoagulants]Onset: 517008-61-8416KpifadbbBpqvf aftercare (20 sources)Wound ; Translations: [Encounter for other specified surgical aftercare]Onset: 385358-16-0475YldmjplyUjpni bone disease and musculoskeletal deformities (20 sources)Osteopenia; Translations: [Other specified disorders of bone density and structure, unspecified site]Onset: 750791-68-5219GihxahuhIwkxo bone disease and musculoskeletal deformities (1 source)Segmental and somatic dysfunction of upper extremity; Translations: [Segmental and somatic dysfunction of upper extremity]Onset: 67-62-5838Deuzsbyr Other bone disease and musculoskeletal deformities (1 source)Other specified disorders of bone density and structure, unspecified site; Translations: [Other specified disorders of bone density and structure, unspecified site]Onset: 01-02-2050XikiqiarAtntq circulatory disease (20 sources)History of transient ischemic attack; Translations: [Personal history of transient ischemic attack (TIA), and cerebral infarction without residual deficits]Onset: 11-18-2019 Resolved: 451805-67-1683NcigworfZqsau connective tissue disease (1 source)Pain in left lower leg; Translations: [PAIN IN LEFT LOWER LEG]Onset: 59-22-6531MydmkyalXwjgq connective tissue disease (1 source)Impingement syndrome of right shoulder; Translations: [Impingement syndrome of right shoulder]Onset: 00-43-9639FrfwrckzXgmaw female genital disorders (1 source)Dyspareunia; Translations: [Unspecified dyspareunia] Resolved: 76-95-2524NwfovzkMiavo gastrointestinal disorders (1 source)Flatulence, eructation and gas pain; Translations: [Abdominal distension (gaseous)]Onset: 70-45-1624OzqxzzqfJutte gastrointestinal disorders (20 sources)Altered bowel function; Translations: [Change in bowel habit]Onset: 848272-71-1883JifmjkwlTteaj gastrointestinal disorders (20 sources)Diarrhea; Translations: [Diarrhea, unspecified]Onset: 04-27-2018 89-34-5430WztlmlpjFoqpc hereditary and degenerative nervous system conditions (20 sources)Tardive dyskinesia; Translations: [Drug induced subacute dyskinesia] Onset: 849686-80-2156CydojlbcZylek injuries and conditions due to external causes (3 sources)Unspecified injury of head, initial encounter; Translations: [UNSPECIFIED INJURY HEAD INITIAL ENC]Onset: 24-99-9196FcohnajsKhvjb injuries and conditions due to external causes (1 source)Other specified injuries of head, initial encounter; Translations: [OTH SPEC INJURIES HEAD INITIAL ENC]Onset: 27-63-1796XtwpcmtwRodmc lower respiratory disease (2 sources)Dyspnea; Translations: [Other forms of dyspnea]Onset: 05-24-2013 EpisodicOther lower respiratory disease (1 source)Cough; Translations: [Cough]Onset: 04-72-7416SmidbrfbQpunt lower respiratory disease (1 source)Shortness of breath; Translations: [Shortness of breath]Onset: 59-50-1431GzyfucnaRtxtp nervous system disorders (20 sources)Involuntary movement; Translations: [Unspecified abnormal involuntary movements]Onset: 901323-24-9816VcogaxttMoqds non-traumatic joint disorders (1 source)Pain in wrist; Translations: [Pain in unspecified wrist]Onset: 19-25-4773VijfpfqjCwisj skin disorders (1 source)Disorder of skin and/or subcutaneous tissue; Translations: [Disorder of the skin and subcutaneous tissue, unspecified]Onset: 15-68-0897Vhwahhqk Phlebitis; thrombophlebitis and thromboembolism (2 sources)Phlebitis and thrombophlebitis of superficial vessels of left lower extremity; Translations: [Embolism and thrombosis of superficial veins of left lower extremity]Onset: 10-04-2021 Resolved: 05-49-6383OiwldbkrAvrhxifg codes; unclassified (1 source)History of repair of mitral valve; Translations: [Other specified postprocedural states]Onset: 377291-69-2183WywbvoxuVrrbvbrg codes; unclassified (1 source)History of tricuspid valve repair; Translations: [Other specified postprocedural states]Onset: 004803-83-3018LczmpxuxCbahtpld codes; unclassified (20 sources)Pain; Translations: [Pain, unspecified]Onset: EpisodicRespiratory failure; insufficiency; arrest (adult) (19 sources)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; 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 [ventilator] status]Onset: 07-28-2024 Resolved: hronic Results Test NameValueInterpretationReference RangeFacilityVITAMIN D 25 HYDROXYon 50-01-2443PCCDBVW D 25 HYD TOT61.8 ng/rCJjykez33.0-100.0[facility] HospitalComment on above:Order Comment: Vitamin D status 25 [place] Vitamin D Deficiency <20 ng/mLInsufficiency 20-29 ng/mLSufficiency 30-100 ng/mLToxicity >100 ng/mLNOTE: A pediatric reference range has not been established by the client services administrator of this kit. The [place] [employer] recommends a Vitamin D level of = or >20ng/mL in infants and children.Performed By: #### LINUX KERNEL DEVELOPER #### [facility] ([facility]) [address] [place] [address] VIR.Auto Diff 1on 82-39-4211Fnod [place] %10 %Normal1-12Magrselect medical [facility] HospitalComment on above:Performed By: #### [id number], [id number], [id number] #### [facility] (DEFAULT) [address] [place] [address] 14528Wqok Abs#0.0 w85Nachnz5.0-0.2Magrselect medical [facility] HospitalComment on above:Performed By: #### [id number], [id number], [id number] #### [facility] (DEFAULT) [address] [place], [place] [address]Bsyzxndyj/100 WBC (Bld)0.5 %Normal0.2-2.0[facility] Comment on above:Performed By: #### [id number], [id number], [id number] #### [facility] (DEFAULT) [address] [place] [address] 06574Cco Abs#0.3 y04Atynhn4.0-0.4Ma[facility] HospitalComment on above:Performed By: #### [id number], [id number], [id number] #### [facility] (DEFAULT) [address] [place] [address] 52925Jgijjjkmrsw/100 WBC (Bld)6.5 %High0.9-4.0[facility] Hospital Comment on above:Performed By: #### [id number], [id number], [id number] #### [facility] (DEFAULT) [address] [place] [address] 72825Exzqr Abs#1.0 c07Sks5.3-2.9[facility] HospitalComment on above:Performed By: #### [id number], [id number], [id number] #### [facility] (DEFAULT) [address] [place] [address] 50388Lwqqbqwutig/100 WBC (Bld)21 %Huqtje10-98Ntbjrlzj Hospital Comment on above:Performed By: #### [id number], [id number], [id number] #### [facility] (DEFAULT) [address] [place] [address] 85424Dvsp Abs#0.5 p40Xrcqmm8.0-0.8Ma[facility] HospitalComment on above:Performed By: #### [id number], [id number], [id number] #### [facility] (DEFAULT) [address] [place] [address] 76397Awci Abs#2.8 r77Ocozbo6.5-9.2Magrselect medical [facility] HospitalComment on above:Performed By: #### [id number], [id number], [id number] #### [facility] (DEFAULT) [address] [place] [address] 54704Truzreycqnr/100 WBC (Bld)62 %Shgtho91-58Cgnlelxj Hospital Comment on above:Performed By: #### [id number], [id number], [id number] #### [facility] (DEFAULT) [address] [place] [address] 16003INZ Standardon 27-39-5842jUSK Non AA>60Invalid Interpretation [facility] CenterComment on above:Performed By: #### [id number], [id number], [id number] #### [facility] (DEFAULT) [address] [place] [address] 16066cJGK AA>60Invalid Interpretation [facility] Comment on above:Performed By: #### [id number], [id number], [id number] #### [facility] (DEFAULT) [address] [place] [address] 11823Sryqo gap [Moles/Vol]9.9 mmol/LNormal5.0-19.0[facility] HospitalComment on above:Performed By: #### [id number], [id number], [id number] #### [facility] (DEFAULT) [address] [place] [address] 51826Kxkyezl [Mass/Vol]9.2 mg/dLNormal8.9-10.3MThe [facility] Comment on above:Performed By: #### [id number], [id number], [id number] #### [facility] (DEFAULT) [address] [place] [address] 12775Nwkdomfp [Moles/Vol]108 mmol/LUenmpr005-522Tfshmnot HospitalComment on above:Performed By: #### [id number], [id number], [id number] #### [facility] (DEFAULT) [address] [place] [address] 49173GZ1 [Moles/Vol]22 mmol/CNjbjxl10-29Hocakfxp Hospital Comment on above:Performed By: #### [id number], [id number], [id number] #### [facility] (DEFAULT) [address] [place] [address] 80901Xjayvuqpre [Mass/Vol]0.69 mg/dLNormal0.60-1.30[facility] HospitalComment on above:Performed By: #### [id number], [id number], [id number] #### [facility] (DEFAULT) [address] [place] [address] 71602Lroyspo [Mass/Vol]93.0 mg/wMLlbpfq35.0-118.0[facility] HospitalComment on above:Performed By: #### [id number], [id number], [id number] #### [facility] (DEFAULT) [address] [place] [address] 52440Ormxeyueca653 mOsm/LInvalid Interpretation CodePromedica Toledo Hospital HospitalComment on above:Performed By: #### [id number], [id number], [id number] #### [facility] (DEFAULT) [address] [place] [address] 26120Xnwyjkkeh [Moles/Vol]3.9 mmol/LNormal3.6-5.1[facility] HospitalComment on above:Performed By: #### [id number], [id number], [id number] #### [facility] (DEFAULT) [address] [place] [address] 09697Vkggic [Moles/Vol]136.0 mmol/OPskhoj848.0-144.0[facility] HospitalComment on above:Performed By: #### [id number], [id number], [id number] #### [facility] (DEFAULT) [address] [place] [address] 95527Uqvd nitrogen [Mass/Vol]18 mg/dLNormal8-26[facility] HospitalComment on above:Performed By: #### [id number], [id number], [id number] #### [facility] (DEFAULT) [address] [place] [address] 63122Mxda nitrogen/Creatinine [Mass ratio]26.0 mg/mgHigh 4.6-16.2[facility] HospitalComment on above:Performed By: #### [id number], [id number], [id number] #### [facility] (DEFAULT) [address] [place] [address] 71119PAK w/ Auto Diffon 40-27-3285Vhflpsapuwh distribution width (RBC) [Ratio]13.6 %Lumgin88.5-15.0[facility] HospitalComment on above: Performed By: #### [id number], [id number], [id number] #### [facility] (DEFAULT) [address] [place], [place] [address]Hematocrit (Bld) [Volume fraction]34.4 %Umnawr51.7-40.4 [facility] HospitalComment on above:Performed By: #### [id number], [id number], [id number] #### [facility] (DEFAULT) [address] [place], [place] [address]Hemoglobin (Bld) [Mass/Vol]11.9 g/wCEtkaqc49.3-15.9 [facility] HospitalComment on above:Performed By: #### [id number], [id number], [id number] #### [facility] (DEFAULT) [address] [place], [place] [address]Man Diff?AutoInvalid Interpretation CodeRiverside Methodist Hospital Comment on above:Performed By: #### [id number], [id number], [id number] #### [facility] (DEFAULT) [address] [place], [place] [address]H (RBC) [Entitic mass]30 zoOexcdw86-78Pvdqpfmm Hospital Comment on above:Performed By: #### [id number], [id number], [id number] #### [facility] (DEFAULT) [address] [place] [address] 86091DBOY (RBC) [Mass/Vol]35 g/eDPztrmd30-37Xtpbaube Hospital Comment on above:Performed By: #### [id number], [id number], [id number] #### [facility] [facility] (DEFAULT) [address] [place] [address] 01021OPK (RBC) [Entitic vol]86 gJUqayqo99-895Strhzzdp Hospital Comment on above:Performed By: #### [id number], [id number], [id number] #### [facility] (DEFAULT) [address] [place] [address] [id number] [id number] HospitalComment on above:Performed By: #### [id number], [id number], [id number] #### [facility] (DEFAULT) [address] [place] [address] 85770Wfvcbonz mean volume (Bld) [Entitic vol]8.8 fLNormal 6.3-10.2[facility] HospitalComment on above:Performed By: #### [id number], [id number], [id number] #### [facility] (DEFAULT) [address] [place] [address] 65100OZA2.98 f07Ukyeph0.70-5.30[facility] HospitalComment on above:Performed By: #### [id number], [id number], [id number] #### [facility] (DEFAULT) [address] [place] [address] [id number] e67Jrepxr8.5-10.5[facility] HospitalComment on above: Performed By: #### [id number], [id number], [id number] #### [facility] (DEFAULT) [address] [place] [address] 46022Pktwdbes Orderson [id number] Orders [id number]#[id number] Memorial Hospital WITH AUTO DIFFERENTIALon 07-68-1949MOYXXMKQU ABSOLUTE COUNT (10*3/UL) BY AUTOMATED COUNT0.0 10*3/uLNormal0.0-0.2[facility] Rehabilitation HospitalComment on above:Performed By: #### [place] #### [facility] ([facility]) [address] [place] [address] VIRBASOPHILS RELATIVE PERCENT BY AUTOMATED COUNT0.4 %Normal [facility]'S Rehabilitation HospitalComment on above:Performed By: #### [place] #### [facility] ([facility]) [address] [place] [address] VIRCELLAVISION DIFFERENTIAL TYPEAUTOMATED DIFFERENTIALNormal [facility] HospitalComment on above:Performed By: #### [place] #### [facility] ([facility]) [address] [place] [address] VIREosinophils (Bld) [#/Vol]0.3 10*3/uLNormal0.0-0.4[facility] HospitalComment on above:Performed By: #### [place] #### [facility] ([facility]) [address] [place] [address] VIREOSINOPHILS RELATIVE PERCENT BY AUTOMATED COUNT6.3 %Normal [facility] HospitalComeaton rapids medical [facility] on above:Performed By: #### [place] #### [facility] ([facility]) [address] [place] [address] VIRErythrocyte distribution width (RBC) [Ratio]13.5 %Normal 11.5-15[facility] HospitalComment on above:Performed By: #### [place] #### [facility] ([facility]) [address] [place] [address] VIRHematocrit (Bld) [Volume fraction]34.9 %Rwi45-43NiaPbwfydNorth Texas Medical CenterComment on above:Performed By: #### [place] #### [facility] ([facility]) [address] [place] [address] VIRHemoglobin (Bld) [Mass/Vol]12.0 g/fWFazbve65.7-15.5PSelect Medical Specialty Hospital - Columbus SouthComment on above:Performed By: #### [place] #### [facility] ([facility]) [address] [place] [address] VIRLYMPHOCYTES ABSOLUTE COUNT (10*3/UL) BY AUTOMATED COUNT0.9 10*3/uLLow1.0-3.5PSelect Medical Specialty Hospital - Columbus SouthComment on above:Performed By: #### [place] #### [facility] ([facility]) [address] [place] [address] VIRLYMPHOCYTES RELATIVE PERCENT BY AUTOMATED COUNT22.0 %Normal [facility] HospitalComment on above:Performed By: #### [place] #### [facility] ([facility]) [address] [place] [address] VIRMCH (RBC) [Entitic mass]29.4 fjFnsucs49-88RhkCbwgpsNorth Texas Medical CenterComment on above:Performed By: #### [place] #### [facility] ([facility]) [address] [place] [address] VIRMCHC (RBC) [Mass/Vol]34.4 g/oOApdhrn03-37DzhAcrwciNorth Texas Medical CenterComment on above:Performed By: #### [place] #### [facility] ([facility]) [address] [place] [address] VIRMCV (RBC) [Entitic vol]85 iBMycvex14-722CdpVcgnfb [facility]remont HospitalComment on above:Performed By: #### [place] #### [facility] ([facility]) [address] [place] [address] VIRMONOCYTES ABSOLUTE COUNT (10*3/UL) BY AUTOMATED COUNT0.4 10*3/uLNormal0.0-0.9[facility] HospitalComment on above:Performed By: #### [place] #### [facility] ([facility]) [address] [place] [address] VIRMONOCYTES RELATIVE PERCENT BY AUTOMATED COUNT9.2 %Normal [facility] HospitalComment on above:Performed By: #### [place] #### [facility] ([facility]) [address] [place] [address] VIRNEUTROPHILS ABSOLUTE COUNT BY AUTOMATED COUNT2.5 10*3/uL Normal1.5-6.6[facility] HospitalComment on above:Performed By: #### [place] #### [facility] ([facility]) [address] [place] [address] VIRNEUTROPHILS RELATIVE PERCENT BY AUTOMATED COUNT62.1 %Normal [facility] HospitalComment on above:Performed By: #### CA #### [facility] ([facility]) [address] [place] [address] VIRPlatelet mean volume (Bld) [Entitic vol]8.3 fLNormal7-12 [facility] HospitalComment on above:Performed By: #### [place] #### [facility] ([facility]) [address] [place] [address] VIRPlatelets (Bld) [#/Vol]138 10*3/qXApt059-328XmsYptfxoCleveland Clinic South Pointe HospitalComeaton rapids medical center on above:Performed By: #### [place] #### [facility] ([facility]) [address] [place] [address] VIRRBC COUNT4.09 X10E12/LNormal3.8-5.2PSelect Medical Specialty Hospital - Columbus SouthComment on above:Performed By: #### [place] #### [facility] ([facility]) [address] [place] [address] VIRWBC (Bld) [#/Vol]4.0 10*3/uLNormal4-11[facility] HospitalComeaton rapids medical center on above:Performed By: #### [place] #### [facility] ([facility]) [address] [place] [address] VIRCBC auto differentialon 26-22-4656Laykpmgom (Bld) [#/Vol]0 10*3/uL0.0 - 0.2 10*3/uLProPomerene Hospital SystemBasophils/100 WBC (Bld)0.4 % [facility] HospitalDifferential cell count method Nom (Bld)AUTOMATED DIFFERENTIALEast Liverpool City HospitalEosinophils (Bld) [#/Vol]0.3 10*3/uL0.0 - 0.4 10*3/uLProAultman Alliance Community HospitalEosinophils/100 WBC (Bld)6.3 %[facility] [place] [facility] HospitalErythrocyte distribution width (RBC) [Ratio]13.5 %11.5 - 15 %[facility] [place] [facility] HospitalHematocrit (Bld) [Volume fraction]34.9 %Low35 - 47 %[facility] [place] [facility] HospitalHemoglobin (Bld) [Mass/Vol]12 g/dL11.7 - 15.5 g/dLEast [place] City HospitalInterpretation and review of laboratory resultsAbnormalEast Liverpool City HospitalLymphocytes (Bld) [#/Vol]0.9 10*3/uLLow1.0 - 3.5 10*3/uLEast [place] City HospitalLymphocytes/100 WBC (Bld)22 %[facility] [place] [facility] HospitalMCH (RBC) [Entitic mass]29.4 pg27 - 34 [facility] HospitalMCHC (RBC) [Mass/Vol]34.4 g/dL32 - 36 g/dLEast [place] City HospitalMCV (RBC) [Entitic vol]85 fL80 - 100 [facility] CenterMonocytes (Bld) [#/Vol]0.4 10*3/uL0.0 - 0.9 10*3/uLEast [place] City HospitalMonocytes/100 WBC (Bld)9.2 %[facility] [place] [facility] HospitalNeutrophils (Bld) [#/Vol]2.5 10*3/uL1.5 - 6.6 10*3/uLEast Liverpool City HospitalNeutrophils/100 WBC (Bld)62.1 %[facility] [place] [facility] HospitalPlatelet mean volume (Bld) [Entitic vol]8.3 fL 7 - 12 [facility] Medical CenterPlatelets (Bld) [#/Vol]138 10*3/uLLowEast Liverpool City HospitalRBC (Bld) [#/Vol]4.09 10*6/[facility] HospitalWBC LM Ql (Sput)4[facility] Hospital of YorkCOMPREHENSIVE METABOLIC PANELon 95-93-8072Csygrou [Mass/Vol]3.3 g/dLNormal3.2-5.3PSelect Medical Specialty Hospital - Columbus SouthComment on above:Performed By: #### [place] #### [facility] (TT) [address] [place] [address] VIRALP [Catalytic activity/Vol]46 U/DQjbksi03-258YqcYkfhnaNorth Texas Medical CenterComment on above:Performed By: #### [place] #### [facility] ([facility]) [address] [place] [address] VIRALT [Catalytic activity/Vol]18 U/LNormal<=31PSelect Medical Specialty Hospital - Columbus SouthComment on above:Performed By: #### [place] #### [facility] ([facility]) [address] [place] [address] VIRAnion gap [Moles/Vol]8 mmol/LNormal5-15ProNorth Texas Medical CenterComment on above:Performed By: #### [place] #### [facility] ([facility]) [address] [place] [address] VIRAST [Catalytic activity/Vol]21 U/LNormal<=41ProNorth Texas Medical CenterComment on above:Performed By: #### [place] #### [facility] ([facility]) [address] [place] [address] VIRBilirubin [Mass/Vol]0.4 mg/dLNormal0.3-1.2PSelect Medical Specialty Hospital - Columbus SouthComment on above:Performed By: #### [place] #### [facility] ([facility]) [address] [place] [address] VIRCalcium [Mass/Vol]9.4 mg/dLNormal8.5-10.5PSelect Medical Specialty Hospital - Columbus SouthComment on above:Performed By: #### [place] #### [facility] ([facility]) [address] [place] [address] VIRChloride [Moles/Vol]111 mmol/SQhfx43-462EzvBsvgzzNorth Texas Medical CenterComment on above:Performed By: #### [place] #### [facility] ([facility]) [address] [place] [address] VIRCO2 [Moles/Vol]22 mmol/FHnbism52-32LxhMsnaxmSelect Medical Specialty Hospital - Columbus SouthComment on above:Performed By: #### [place] #### [facility] ([facility]) [address] [place] [address] VIRCreatinine [Mass/Vol]0.76 mg/dLNormal0.40-1.00[facility] HospitalComment on above:Result Comment: METHOD TRACEABLE TO IDIA STANDARDPerformed By: #### CA #### [facility] ([facility]) [address] [place] [address] VIRGFR/1.73 sq M.predicted among non-blacks MDRD (S/P/Bld) [Vol rate/Area]77 mL/min/{1.73_m2}Normal>=60ProNorth Texas Medical CenterComment on above:Result Comment: eGFR not reported due to non-numeric value for Creatinine. Reported eGFR is based on the CKD-EPI 2020 equation that does not use a race coefficient.Performed By: #### [place] #### [facility] ([facility]) [address] [place] [address] VIRGlucose [Mass/Vol]93 mg/cTEskshv08-18FsnPyxfztNorth Texas Medical CenterComment on above:Performed By: #### [place] #### [facility] ([facility]) [address] [place] [address] VIRPotassium [Moles/Vol]4.0 mmol/LNormal3.5-5.0[facility] HospitalComment on above:Performed By: #### [place] #### [facility] ([facility]) [address] [place] [address] VIRProtein [Mass/Vol]5.9 g/dLLow6.0-8.0[facility] HospitalComment on above:Performed By: #### [place] #### [facility] ([facility]) [address] [place] [address] VIRSodium [Moles/Vol]141 mmol/SPlssqa625-308WnxBwgvzg [facility] HospitalComment on above:Performed By: #### [place] #### [facility] ([facility]) [address] [place] [address] VIRUrea nitrogen [Mass/Vol]16 mg/dLNormal5-27[facility] HospitalComment on above:Performed By: #### [place] #### [facility] ([facility]) [address] [place] [address] VIRComprehensive metabolic panelon 58-79-3450Tjtjsvy [Mass/Vol] 3.3 g/dL3.2 - 5.3 g/dLProUniversity Of South [facility]'S [facility] Health SystemALP [Catalytic activity/Vol]46 U/L 39 - 130 U/LPrProgress West Hospitalica Health SystemALT No additional P-5'-P [Catalytic activity/Vol]18 U/LNINF - 31 U/LProMedica Health SystemAnion gap [Moles/Vol]8 mmol/L5 - 15 mmol/LPrAnimas Surgical Hospital Health SystemAST [Catalytic activity/Vol]21 U/LNINF - 41 U/LPrAnimas Surgical Hospital Health SystemBilirubin [Mass/Vol]0.4 mg/dL0.3 - 1.2 mg/dL [facility] Health SystemCalcium [Mass/Vol]9.4 mg/dL8.5 - 10.5 mg/dLProPomerene Hospital SystemChloride [Moles/Vol]111 mmol/LHigh98 - 109 mmol/LProMedica Health SystemCO2 [Moles/Vol]22 mmol/L22 - 32 mmol/LPrAnimas Surgical Hospital Health SystemCreatinine [Mass/Vol]0.76 mg/dL0.40 - 1.00 mg/dLEast Liverpool City HospitalComment on above: METHOD TRACEABLE TO IDIA STANDARDEGFR Non-Race Rccvamrid85- Reston Hospital CenterComment on above:eGFR not reported due to non-numeric value for Creatinine. Reported eGFR is based on the CKD-EPI 202 equation that does not use a race coefficient. Glucose [Mass/Vol]93 mg/dL65 - 99 mg/dLEast Liverpool City HospitalInterpretation and review of laboratory resultsAbnormalCorey Hospital SystemPotassium [Moles/Vol]4 mmol/L3.5 - 5.0 mmol/LProMedica Health SystemProtein [Mass/Vol]5.9 g/dLLow6.0 - 8.0 g/dLCorey Hospital SystemSodium [Moles/Vol]141 mmol/L134 - 146 mmol/LProMedica Health SystemUrea nitrogen [Mass/Vol]16 mg/dL5 - 27 mg/dL [facility] [place] [facility] HospitalCovid-19 Testing for SNF Placement #1on 02-28-2025 SARS-CoV-2 (COVID-19) RNA LI+probe Ql (Resp)Not detectedNot DetectedEast Liverpool City HospitalMAGNESIUMon 12-21-6420Ysnucjgft [Mass/Vol]2.0 mg/dLNormal1.8-2.6 [facility] HospitalComment on above:Performed By: #### [place] #### [facility] ([facility]) [address] [place] [address] VIRMagnesiumon 43-28-1973Aczqeitrtmdjva and review of laboratory resultsNormalEast Liverpool City HospitalMagnesium [Mass/Vol]2 mg/dL1.8 - 2.6 mg/dLEast Liverpool City HospitalNo Panel Informationon [id number] Health PartnersARS COV 2 BY NAAT/MOLECULARon 86-78-1215LWDJ-CoV-2 (COVID-19) RNA LI+probe Ql (Unsp spec)Not detectedNormalNot DetectedC[facility] Clinic [facility] Comment on above:Order Comment: The Xpert Xpress SARS-CoV-2 Plus test is a real- time RT-PCR test intended for the qualitative detection of nucleic acid from the SARS-CoV-2 from individuals suspected of COVID-19 by their healthcare provider. This test has not been validated in asymptomatic patients. The Xpert Xpress SARS-CoV-2 Plus test is intended for use by qualified and trained operators who are performing tests using either [employer] or [employer] systems and is limited to laboratories that meet the CLIA requirements to perform high and moderate complexity tests. The Xpert Xpress SARS-CoV-2 Plustest is only for use under the Food and Drug Administration's Emergency Use Authorization. Results a re for the detection and identification of SARS-CoV-2 RNA, which is generally detectable in upper respiratory samples during the acute phase of infection. Positive results are indicative of active infection with SARS-CoV-2; clinical correlation with patient history and other diagnostic information is necessary to determine patient infection status. Positive results do not rule out bacterial infection or co-infection with other viruses. The agent detected may not be the definite cause of disease. Negative results do not preclude SARS-CoV-2 infection and should not be used as the sole basis fortreatment or other patient management decisions. Negative results must be combined with clinical observations, patient history, and epidemiological information. An Invalid Result may occur with specimen-associated inhibition unable to be resolved with specimen repeat.Fact Sheet for Healthcare Provid ers:https://www.fda.gov/media/698105/downloadFact Sheet for Patients:https://www.fda.gov/media/808167/downloadPerformed By: #### [employer] DEVELOPER #### [facility] ([facility]) [address] [place] [address] COVWCTM-RlT-2 (COVID-19) RNA LI+probe Ql (Resp)on 02-28-2025 Interpretation and review of laboratory resultsNoECU Health Duplin HospitalThe Xpert Xpress SARS-CoV-2 Plus test is a real-time RT-PCR test intended for the qualitative detection of nucleic acid from the SARS-CoV-2 from individuals suspected of COVID-19 by their healthcare provider. This test has not been validated in asymptomatic patients. The Xpert Xpress SARS-CoV-2 Plus test is intended for use by qualified and trained operators who are performing tests using either [employer] or GeneDNAdigest systems and is limited to laboratories that meet the CLIA requirements to perform high and moderate complexity tests. The Xpert Xpress SARS-CoV-2 Plus test is only for use under the Food and Drug Administration's Emergency Use Authorization. Results are for the detection and identification of SARS-CoV-2 RNA, which is generally detectable in upper respiratory samples during the acute phase of infection. Positive results are indicative of active infection with SARS-CoV-2; clinical correlation with patient history and other diagnostic information is necessary todetermine patient infection status. Positive results do not rule out bacterial infection or co-infection with other viruses. The agent detected may not be the definite cause of disease. Negative results do not preclude SARS-CoV-2 infection and should not be used as the sole basis for treatment or other patient management decisions. Negative results must be combined with clinical observations, patient history, and epidemiological information. An Invalid Result may occur with specimen-associated inhibition unable to be resolved with specimen repeat. Fact Sheet for Healthcare Providers: https://www.fda.gov/media/654240/download Fact Sheet for Patients: https://www.fda.gov/media/726129/downloadProctor HospitalMedica Health SystemCorey Hospital SystemSARS/FLU A+B/RSV BY NAAT/MOLECULAR (M4RT COLLECTION TUBE)on 02-28-2025 SARS/FLU A+B/RSV BY NAAT/MOLECULAR (M4RT COLLECTION TUBE)SARS/FLU A+B/RSV BY NAAT/MOLECULAR (M4RT COLLECTION TUBE) COVFLR SARS/FLU A+B/RSV BY NAAT/MOLECULAR (M4RT COLLECTION TUBE) CancelledSumma Health Akron Campus WITH AUTO DIFFERENTIALon 51-33-3397ETENWFGMK ABSOLUTE COUNT (10*3/UL) BY AUTOMATED COUNT0.0 10*3/uLNormal0.0-0.2PSelect Medical Specialty Hospital - Columbus SouthComment on above:Performed By: #### [place] #### [facility] ([facility]) [address] [place] [address] VIRBASOPHILS RELATIVE PERCENT BY AUTOMATED COUNT0.3 %Normal [facility] HospitalComeaton rapids medical center on above:Performed By: #### [place] #### [facility] ([facility]) [address] [place] [address] VIRCELLAVISION DIFFERENTIAL TYPEAUTOMATED DIFFERENTIALElyria Memorial HospitalComment on above:Performed By: #### [place] #### [facility] ([facility]) [address] [place] [address] VIREosinophils (Bld) [#/Vol]0.2 10*3/uLNormal0.0-0.4[facility] HospitalComeaton rapids medical center on above:Performed By: #### [place] #### [facility] ([facility]) [address] [place] [address] VIREOSINOPHILS RELATIVE PERCENT BY AUTOMATED COUNT4.1 %Normal [facility] HospitalComment on above:Performed By: #### [place] #### [facility] ([facility]) [address] [place] [address] VIRErythrocyte distribution width (RBC) [Ratio]13.4 %Normal 11.5-15[facility] HospitalComment on above:Performed By: #### [place] #### [facility] ([facility]) [address] [place] [address] VIRHematocrit (Bld) [Volume fraction]36.0 %Xyxqzx93-81ShxJxcoduNorth Texas Medical CenterComment on above:Performed By: #### [place] #### [facility] ([facility]) [address] [place] [address] VIRHemoglobin (Bld) [Mass/Vol]12.3 g/pXVlerfs74.7-15.5PSelect Medical Specialty Hospital - Columbus SouthComment on above:Performed By: #### [place] #### [facility] ([facility]) [address] [place] [address] VIRLYMPHOCYTES ABSOLUTE COUNT (10*3/UL) BY AUTOMATED COUNT0.6 10*3/uLLow1.0-3.5PSelect Medical Specialty Hospital - Columbus SouthComment on above:Performed By: #### [place] #### [facility] ([facility]) [address] [place] [address] VIRLYMPHOCYTES RELATIVE PERCENT BY AUTOMATED COUNT10.8 %Normal [facility] HospitalComment on above:Performed By: #### [place] #### [facility] ([facility]) [address] [place] [address] VIRMCH (RBC) [Entitic mass]29.3 rpFweskq41-89KczYqqoygNorth Texas Medical CenterComment on above:Performed By: #### [place] #### [facility] ([facility]) [address] [place] [address] VIRMCHC (RBC) [Mass/Vol]34.2 g/bKQwesce48-38SgkHflsssCleveland Clinic South Pointe HospitalComment on above:Performed By: #### [place] #### [facility] ([facility]) [address] [place] [address] VIRMCV (RBC) [Entitic vol]86 sRYtffch36-546NrmJpqcak Fremont HospitalComment on above:Performed By: #### [place] #### [facility] ([facility]) [address] [place] [address] VIRMONOCYTES ABSOLUTE COUNT (10*3/UL) BY AUTOMATED COUNT0.4 10*3/uLNormal0.0-0.9[facility] HospitalComment on above:Performed By: #### [place] #### [facility] ([facility]) [address] [place] [address] VIRMONOCYTES RELATIVE PERCENT BY AUTOMATED COUNT7.1 %Normal [facility] HospitalComment on above:Performed By: #### [place] #### [facility] ([facility]) [address] [place] [address] VIRNEUTROPHILS ABSOLUTE COUNT BY AUTOMATED COUNT4.2 10*3/uL Normal1.5-6.6[facility] HospitalComeaton rapids medical center on above:Performed By: #### [place] #### [facility] ([facility]) [address] [place] [address] VIRNEUTROPHILS RELATIVE PERCENT BY AUTOMATED COUNT77.7 %Normal [facility] HospitalComment on above:Performed By: #### CA #### [facility] ([facility]) [address] [place] [address] VIRPlatelet mean volume (Bld) [Entitic vol]8.4 fLNormal7-12 [facility] HospitalComment on above:Performed By: #### CA #### [facility] ([facility]) [address] [place] [address] VIRPlatelets (Bld) [#/Vol]141 10*3/rCErf150-546SgfUznwqdCleveland Clinic South Pointe HospitalComment on above:Performed By: #### CA #### [facility] ([facility]) [address] [place] [address] VIRRBC COUNT4.20 X10E12/LNormal3.8-5.2[facility] Health[facility] Children'S Rehabilitation HospitalComment on above:Performed By: #### CA #### [facility] ([facility]) [address] [place] [address] VIRWBC (Bld) [#/Vol]5.4 10*3/uLNormal4-11[facility] HospitalComment on above:Performed By: #### CA #### [facility] ([facility]) [address] [place] [address] VIRCBC auto differentialon [id number] (Bld) [#/Vol]0 10*3/uL0.0 - 0.2 10*3/uLEast Liverpool City HospitalBasophils/100 WBC (Bld)0.3 % [facility] HospitalDifferential cell count method Nom (Bld)AUTOMATED DIFFERENTIALEast Liverpool City HospitalEosinophils (Bld) [#/Vol]0.2 10*3/uL0.0 - 0.4 10*3/uLEast [place] City HospitalEosinophils/100 WBC (Bld)4.1 %[facility] [place] [facility] HospitalErythrocyte distribution width (RBC) [Ratio]13.4 %11.5 - 15 %[facility] [place] [facility] HospitalHematocrit (Bld) [Volume fraction]36 %35 - 47 %[facility] [place] [facility] HospitalHemoglobin (Bld) [Mass/Vol]12.3 g/dL11.7 - 15.5 g/dLEast [place] City HospitalInterpretation and review of laboratory resultsAbnoECU Health Duplin HospitalLymphocytes (Bld) [#/Vol]0.6 10*3/uLLow1.0 - 3.5 10*3/uLEast [place] City HospitalLymphocytes/100 WBC (Bld)10.8 %[facility] [place] [facility] HospitalMCH (RBC) [Entitic mass]29.3 pg27 - 34 pgPProMedica Defiance Regional HospitalMCHC (RBC) [Mass/Vol]34.2 g/dL32 - 36 g/dLEast [place] City HospitalMCV (RBC) [Entitic vol]86 fL80 - 100 [facility] CenterMonocytes (Bld) [#/Vol]0.4 10*3/uL0.0 - 0.9 10*3/uLEast [place] City HospitalMonocytes/100 WBC (Bld)7.1 %[facility] [place] [facility] HospitalNeutrophils (Bld) [#/Vol]4.2 10*3/uL1.5 - 6.6 10*3/uLEast [place] City HospitalNeutrophils/100 WBC (Bld)77.7 %[facility] [place] [facility] HospitalPlatelet mean volume (Bld) [Entitic vol]8.4 fL 7 - 12 [facility] Medical CenterPlatelets (Bld) [#/Vol]141 10*3/uLLowEast Liverpool City HospitalRBC (Bld) [#/Vol]4.2 10*6/[facility] HospitalWBC LM Ql (Sput) 5.4[facility] Hospital of YorkCOMPREHENSIVE METABOLIC PANELon 31-89-5449Vqujfqm [Mass/Vol]3.5 g/dLNormal3.2-5.3PSelect [facility] Comment on above:Performed By: #### [place] #### [facility] ([facility]) [address] [place] [address] VIRALP [Catalytic activity/Vol]47 U/QCyxmct96-586JmuCttjvhCleveland Clinic South Pointe HospitalComment on above:Performed By: #### CA #### [facility] ([facility]) [address] [place] [address] VIRALT [Catalytic activity/Vol]16 U/LNormal<=31PSelect Medical Specialty Hospital - Columbus SouthComment on above:Performed By: #### [place] #### [facility] ([facility]) [address] [place] [address] VIRAnion gap [Moles/Vol]9 mmol/LNormal5-15ProNorth Texas Medical CenterComment on above:Performed By: #### CA #### [facility] ([facility]) [address] [place] [address] VIRAST [Catalytic activity/Vol]16 U/LNormal<=41ProNorth Texas Medical CenterComment on above:Performed By: #### CA #### [facility] ([facility]) [address] [place] [address] VIRBilirubin [Mass/Vol]0.7 mg/dLNormal0.3-1.2PSelect Medical Specialty Hospital - [facility] SouthComment on above:Performed By: #### [place] #### [facility] ([facility]) [address] [place] [address] VIRCalcium [Mass/Vol]9.4 mg/dLNormal8.5-10.5PSelect Medical Specialty Hospital - [facility] SouthComment on above:Performed By: #### CA #### [facility] ([facility]) [address] [place] [address] VIRChloride [Moles/Vol]109 mmol/UKxveqo72-937VbdPvefliNorth Texas Medical CenterComment on above:Performed By: #### CA #### [facility] ([facility]) [address] [place] [address] VIRCO2 [Moles/Vol]23 mmol/LDzvdvx99-31HcpCbmposSelect Medical Specialty Hospital - [facility] SouthComment on above:Performed By: #### CA #### [facility] ([facility]) [address] [place] [address] VIRCreatinine [Mass/Vol]0.81 mg/dLNormal0.40-1.00ProNorth Texas Medical CenterComment on above:Result Comment: METHOD TRACEABLE TO IDMS STANDARDPerformed By: #### CA #### [facility] ([facility]) [address] [place] [address] VIRGFR/1.73 sq M.predicted among non-blacks MDRD (S/P/Bld) [Vol rate/Area]72 mL/min/{1.73_m2}Normal>=60[facility] HospitalComment on above:Result Comment: eGFR not reported due to non-numeric value for Creatinine. Reported eGFR is based on the CKD-EPI 2020 equation that does not use a race coefficient.Performed By: #### CA #### [facility] ([facility]) [address] [place] [address] VIRGlucose [Mass/Vol]103 mg/kGXjdb34-63FieCvpdbtNorth Texas Medical CenterComment on above:Performed By: #### CA #### [facility] ([facility]) [address] [place] [address] VIRPotassium [Moles/Vol]3.9 mmol/LNormal3.5-5.0[facility] HospitalComment on above:Performed By: #### CA #### [facility] ([facility]) [address] [place] [address] VIRProtein [Mass/Vol]6.0 g/dLNormal6.0-8.0[facility] HospitalComment on above:Performed By: #### CA #### [facility] ([facility]) [address] [place] [address] VIRSodium [Moles/Vol]141 mmol/WBdfyvi920-021IizMdxdyn [facility]remont HospitalComment on above:Performed By: #### CA #### [facility] ([facility]) [address] [place] [address] VIRUrea nitrogen [Mass/Vol]19 mg/dLNormal5-27ProNorth Texas Medical CenterComment on above:Performed By: #### CA #### [facility] ([facility]) [address] [place] [address] VIRComprehensive metabolic panelon 91-25-2577Yqmwfpo [Mass/Vol] 3.5 g/dL3.2 - 5.3 g/dLCorey Hospital SystemALP [Catalytic activity/Vol]47 U/L 39 - 130 U/LPrAnimas Surgical Hospital Health SystemALT No additional P-5'-P [Catalytic activity/Vol]16 U/LNINF - 31 U/[facility] Health SystemAnion gap [Moles/Vol]9 mmol/L5 - 15 mmol/LPrProgress West Hospitalica Health SystemAST [Catalytic activity/Vol]16 U/LNINF - 41 U/[facility] SystemBilirubin [Mass/Vol]0.7 mg/dL0.3 - 1.2 mg/dL ProMUnited Hospital SystemCalcium [Mass/Vol]9.4 mg/dL8.5 - 10.5 mg/dLProPomerene Hospital SystemChloride [Moles/Vol]109 mmol/L98 - 109 mmol/LPrAnimas Surgical Hospital Health SystemCO2 [Moles/Vol]23 mmol/L22 - 32 mmol/[facility] SystemCreatinine [Mass/Vol]0.81 mg/dL0.40 - 1.00 mg/dLEast [place] City HospitalComment on above: METHOD TRACEABLE TO IDMS STANDARDEGFR Non-Race Beryupzug07- Reston Hospital CenterComment on above:eGFR not reported due to non-numeric value for Creatinine. Reported eGFR is based on the CKD-EPI 2020 equation that does not use a race coefficient. Glucose [Mass/Vol]103 mg/eBUxvu53 - 99 mg/dLEast [facility] Interpretation and review of laboratory resultsAbnormChillicothe Hospital Potassium [Moles/Vol]3.9 mmol/L3.5 - 5.0 mmol/LPrProgress West Hospitalica Health SystemProtein [Mass/Vol]6 g/dL6.0 - 8.0 g/dLAffinity Health Partnersodium [Moles/Vol]141 mmol/L134 - 146 mmol/LPrSelect Medical Specialty Hospital [facility] SystemUrea nitrogen [Mass/Vol]19 mg/dL5 - 27 mg/dLEast [place] HospitalLight Blue Topon 41-40-7590Pzmvr TubeAuto ResultedSt. [facility]'s [facility] SystemMAGNESIUMon 02-27-2025 Magnesium [Mass/Vol]2.0 mg/dLNormal1.8-2.6[facility] HospitalComment on above:Performed By: #### CA #### [facility] ([facility]) [address] [place] [address] VIRMagnesiumon 63-50-1675Louerygughaega and review of laboratory resultsNormalProAultman Alliance Community HospitalMagnesium [Mass/Vol]2 mg/dL1.8 - 2.6 mg/dLEast [place] [facility] HospitalNo Panel Informationon [id number] Alliance Community HospitalCBC WITH AUTO DIFFERENTIALon 32-29-0297WPNRSXBJU ABSOLUTE COUNT (10*3/UL) BY AUTOMATED COUNT0.0 10*3/uLNormal0.0-0.2PSelect [facility] Comment on above:Performed By: #### CA #### [facility] ([facility]) [address] [place] [address] VIRBASOPHILS RELATIVE PERCENT BY AUTOMATED COUNT0.3 %Normal [facility] HospitalComment on above:Performed By: #### CA #### [facility] ([facility]) [address] [place] [address] VIRCELLAVISION DIFFERENTIAL TYPEAUTOMATED DIFFERENTIALNormal [facility] HospitalComment on above:Performed By: #### CA #### [facility] ([facility]) [address] [place] [address] VIREosinophils (Bld) [#/Vol]0.2 10*3/uLNormal0.0-0.4[facility] HospitalComment on above:Performed By: #### CA #### [facility] ([facility]) [address] [place] [address] VIREOSINOPHILS RELATIVE PERCENT BY AUTOMATED COUNT3.7 %Normal [facility] HospitalComment on above:Performed By: #### CA #### [facility] ([facility]) [address] [place] [address] VIRErythrocyte distribution width (RBC) [Ratio]13.2 %Normal 11.5-15[facility] HospitalComment on above:Performed By: #### CA #### [facility] ([facility]) [address] [place] [address] VIRHematocrit (Bld) [Volume fraction]35.5 %Dxzqzg32-12UwwNhoqnnCleveland Clinic South Pointe HospitalComment on above:Performed By: #### CA #### [facility] ([facility]) [address] [place] [address] VIRHemoglobin (Bld) [Mass/Vol]12.2 g/mECmwqlz38.7-15.5PSelect Medical Specialty Hospital - Columbus SouthComment on above:Performed By: #### CA #### [facility] ([facility]) [address] [place] [address] VIRLYMPHOCYTES ABSOLUTE COUNT (10*3/UL) BY AUTOMATED COUNT0.6 10*3/uLLow1.0-3.5PSelect Medical Specialty Hospital - Columbus SouthComment on above:Performed By: #### CA #### [facility] ([facility]) [address] [place] [address] VIRLYMPHOCYTES RELATIVE PERCENT BY AUTOMATED COUNT12.1 %Normal [facility] HospitalComment on above:Performed By: #### CA #### [facility] ([facility]) [address] [place] [address] VIRMCH (RBC) [Entitic mass]29.3 qpPyqygv12-51SjtTqjplyNorth Texas Medical CenterComment on above:Performed By: #### CA #### [facility] ([facility]) [address] [place] [address] VIRMCHC (RBC) [Mass/Vol]34.4 g/nVFhwaqi03-03CjpRbevviNorth Texas Medical CenterComment on above:Performed By: #### CA #### [facility] ([facility]) [address] [place] [address] VIRMCV (RBC) [Entitic vol]85 oSXzeicr13-967MguXtjlbk [facility]remont HospitalComment on above:Performed By: #### CA #### [facility] ([facility]) [address] [place] [address] VIRMONOCYTES ABSOLUTE COUNT (10*3/UL) BY AUTOMATED COUNT0.4 10*3/uLNormal0.0-0.9[facility] HospitalComment on above:Performed By: #### CA #### [facility] ([facility]) [address] [place] [address] VIRMONOCYTES RELATIVE PERCENT BY AUTOMATED COUNT7.3 %Normal [facility] HospitalComment on above:Performed By: #### CA #### [facility] ([facility]) [address] [place] [address] VIRNEUTROPHILS ABSOLUTE COUNT BY AUTOMATED COUNT4.1 10*3/uL Normal1.5-6.6[facility] HospitalComment on above:Performed By: #### CA #### [facility] ([facility]) [address] [place] [address] VIRNEUTROPHILS RELATIVE PERCENT BY AUTOMATED COUNT76.6 %Normal [facility] HospitalComment on above:Performed By: #### CA #### [facility] ([facility]) [address] [place] [address] VIRPlatelet mean volume (Bld) [Entitic vol]8.5 fLNormal7-12 [facility] HospitalComment on above:Performed By: #### CA #### [facility] ([facility]) [address] [place] [address] VIRPlatelets (Bld) [#/Vol]138 10*3/xNXrp099-893FqeVtyieeNorth Texas Medical CenterComment on above:Performed By: #### [place] #### [facility] ([facility]) [address] [place] [address] VIRRBC COUNT4.16 X10E12/LNormal3.8-5.2PSelect Medical Specialty Hospital - Columbus SouthComment on above:Performed By: #### CA #### [facility] ([facility]) [address] [place] [address] VIRWBC (Bld) [#/Vol]5.3 10*3/uLNormal4-11[facility] HospitalComment on above:Performed By: #### CA #### [facility] ([facility]) [address] [place] [address] VIRCBC auto differentialon [id number] (Bld) [#/Vol]0 10*3/uL0.0 - 0.2 10*3/uLEast [place] City HospitalBasophils/100 WBC (Bld)0.3 % [facility] [place] [facility] HospitalDifferential cell count method Nom (Bld)AUTOMATED DIFFERENTIALEast Liverpool City HospitalEosinophils (Bld) [#/Vol]0.2 10*3/uL0.0 - 0.4 10*3/uLEast [place] City HospitalEosinophils/100 WBC (Bld)3.7 %[facility] [place] [facility] HospitalErythrocyte distribution width (RBC) [Ratio]13.2 %11.5 - 15 %[facility] [place] [facility] HospitalHematocrit (Bld) [Volume fraction]35.5 %35 - 47 %[facility] [place] [facility] HospitalHemoglobin (Bld) [Mass/Vol]12.2 g/dL11.7 - 15.5 g/dLEast [place] City HospitalInterpretation and review of laboratory resultsAbnormalEast Liverpool City HospitalLymphocytes (Bld) [#/Vol]0.6 10*3/uLLow1.0 - 3.5 10*3/uLEast [place] City HospitalLymphocytes/100 WBC (Bld)12.1 %[facility] [place] [facility] HospitalMCH (RBC) [Entitic mass]29.3 pg27 - 34 pgPProMedica Defiance Regional HospitalMCHC (RBC) [Mass/Vol]34.4 g/dL32 - 36 g/dLEast [place] City HospitalMCV (RBC) [Entitic vol]85 fL80 - 100 [facility] CenterMonocytes (Bld) [#/Vol]0.4 10*3/uL0.0 - 0.9 10*3/uLProMedica Health SystemMonocytes/100 WBC (Bld)7.3 %[facility] SystemNeutrophils (Bld) [#/Vol]4.1 10*3/uL1.5 - 6.6 10*3/uLCorey Hospital SystemNeutrophils/100 WBC (Bld)76.6 %[facility] SystemPlatelet mean volume (Bld) [Entitic vol]8.5 fL 7 - 12 [facility] SystemPlatelets (Bld) [#/Vol]138 10*3/uLLowOhioHealth Hardin Memorial Hospital Health SystemRBC (Bld) [#/Vol]4.16 10*6/uLCorey Hospital SystemWBC LM Ql (Sput)5.3PFoundations Behavioral HealthCOMPREHENSIVE METABOLIC PANELon 90-56-4064Dgpoidl [Mass/Vol]3.6 g/dLNormal3.2-5.3PSelect Medical Specialty Hospital - Columbus SouthComment on above:Performed By: #### [place] #### [facility] ([facility]) [address] [place] [address] VIRALP [Catalytic activity/Vol]47 U/TXhnunk12-869LoaZivoklCleveland Clinic South Pointe HospitalComment on above:Performed By: #### [place] #### [facility] ([facility]) [address] [place] [address] VIRALT [Catalytic activity/Vol]19 U/LNormal<=31PSelect Medical Specialty Hospital - [facility] SouthComment on above:Performed By: #### [place] #### [facility] ([facility]) [address] [place] [address] VIRAnion gap [Moles/Vol]7 mmol/LNormal5-15[facility] HospitalComment on above:Performed By: #### [place] #### [facility] ([facility]) [address] [place] [address] VIRAST [Catalytic activity/Vol]20 U/LNormal<=41ProNorth Texas Medical CenterComment on above:Performed By: #### [place] #### [facility] ([facility]) [address] [place] [address] VIRBilirubin [Mass/Vol]1.1 mg/dLNormal0.3-1.2PSelect Medical Specialty Hospital - [place] SouthComment on above:Performed By: #### [place] #### [facility] ([facility]) [address] [place] [address] VIRCalcium [Mass/Vol]9.5 mg/dLNormal8.5-10.5PSelect Medical Specialty Hospital - [facility] SouthComment on above:Performed By: #### [place] #### [facility] ([facility]) [address] [place] [address] VIRChloride [Moles/Vol]111 mmol/XPdat14-617OjhKjnmgoNorth Texas Medical CenterComment on above:Performed By: #### [place] #### [facility] ([facility]) [address] [place] [address] VIRCO2 [Moles/Vol]23 mmol/CCzdabu06-68StiGzcqdoSelect Medical Specialty Hospital - [place] SouthComment on above:Performed By: #### [place] #### [facility] ([facility]) [address] [place] [address] VIRCreatinine [Mass/Vol]0.70 mg/dLNormal0.40-1.00ProNorth Texas Medical CenterComment on above:Result Comment: METHOD TRACEABLE TO IDMS STANDARDPerformed By: #### CA #### [facility] ([facility]) [address] [place] [address] VIRGFR/1.73 sq M.predicted among non-blacks MDRD (S/P/Bld) [Vol rate/Area]85 mL/min/{1.73_m2}Normal>=60ProNorth Texas Medical CenterComment on above:Result Comment: eGFR not reported due to non-numeric value for Creatinine. Reported eGFR is based on the CKD-EPI 2020 equation that does not use a race coefficient.Performed By: #### [place] #### [facility] ([facility]) [address] [place] [address] VIRGlucose [Mass/Vol]95 mg/qPNjhnnj56-84VvrHrmlgnNorth Texas Medical CenterComment on above:Performed By: #### [place] #### [facility] ([facility]) [address] [place] [address] VIRPotassium [Moles/Vol]3.7 mmol/LNormal3.5-5.0ProNorth Texas Medical CenterComment on above:Performed By: #### [place] #### [facility] ([facility]) [address] [place] [address] VIRProtein [Mass/Vol]5.9 g/dLLow6.0-8.0[facility] HospitalComment on above:Performed By: #### [place] #### [facility] ([facility]) [address] [place] [address] VIRSodium [Moles/Vol]141 mmol/HAxgeml761-485UhmIevjuy [facility]ont HospitalComment on above:Performed By: #### [place] #### [facility] ([facility]) [address] [place] [address] VIRUrea nitrogen [Mass/Vol]13 mg/dLNormal5-27[facility] HospitalComment on above:Performed By: #### [place] #### [facility] ([facility]) [address] [place] [address] VIRComprehensive metabolic panelon 53-80-2145Ywzpcms [Mass/Vol] 3.6 g/dL3.2 - 5.3 g/dLProUniversity Of South [facility] Health SystemALP [Catalytic activity/Vol]47 U/L 39 - 130 U/LProMedica Health SystemALT No additional P-5'-P [Catalytic activity/Vol]19 U/LNINF - 31 U/LProMedica Health SystemAnion gap [Moles/Vol]7 mmol/L5 - 15 mmol/LProMedica Health SystemAST [Catalytic activity/Vol]20 U/LNINF - 41 U/LProMedica Health SystemBilirubin [Mass/Vol]1.1 mg/dL0.3 - 1.2 mg/dL ProMedica Health SystemCalcium [Mass/Vol]9.5 mg/dL8.5 - 10.5 mg/dLCorey Hospital SystemChloride [Moles/Vol]111 mmol/LHigh98 - 109 mmol/LProMedica Health SystemCO2 [Moles/Vol]23 mmol/L22 - 32 mmol/LProMedica Health SystemCreatinine [Mass/Vol]0.7 mg/dL0.40 - 1.00 mg/dLEast Liverpool City HospitalComment on above: METHOD TRACEABLE TO IDMS STANDARDEGFR Non-Race Ycmsdhzeo43- PINResearch Belton HospitalComment on above:eGFR not reported due to non-numeric value for Creatinine. Reported eGFR is based on the CKD-EPI 2020 equation that does not use a race coefficient. Glucose [Mass/Vol]95 mg/dL65 - 99 mg/dLEast Liverpool City HospitalInterpretation and review of laboratory resultsAbnormAdvanced Surgical Hospital SystemPotassium [Moles/Vol]3.7 mmol/L3.5 - 5.0 mmol/[facility] SystemProtein [Mass/Vol] 5.9 g/dLLow6.0 - 8.0 g/dLCorey Hospital SystemSodium [Moles/Vol]141 mmol/L134 - 146 mmol/Critical access hospitaloMedica Health SystemUrea nitrogen [Mass/Vol]13 mg/dL5 - 27 mg/dL [facility] SystemLight Blue Topon [phone] TubeAuto Resulted [facility] SystemMAGNESIUMon [id number] [Mass/Vol]2.1 mg/dLNormal1.8-2.6C[facility] Pointe HospitalComment on above: Performed By: #### CA #### [facility] ([facility]) [address] [place] [address] VIRMagnesiumon [phone] and review of laboratory resultsNoECU Health Duplin HospitalMagnesium [Mass/Vol]2.1 mg/dL1.8 - 2.6 mg/dLEast Liverpool City HospitalNo Panel Informationon [phone] Alliance Community HospitalBASIC METABOLIC PANELon [phone] gap [Moles/Vol]8 mmol/L Normal5-15ProNorth Texas Medical CenterComment on above:Performed By: #### BMP #### [facility] ([address] [place] [address] VIRCalcium [Mass/Vol]10.0 mg/dLNormal8.5-10.5PSelect [facility] - Columbus SouthComment on above:Performed By: #### BMP #### [facility] ([address] [place] [address] VIRChloride [Moles/Vol]109 mmol/SItgolx58-693LymDtitksNorth Texas Medical CenterComment on above:Performed By: #### BMP #### [facility] ([address] [place] [address] VIRCO2 [Moles/Vol]25 mmol/ESmvyja42-17UliEtcnykSelect Medical Specialty Hospital - Columbus SouthComment on above:Performed By: #### BMP #### [facility] ([address] [place] [address] VIRCreatinine [Mass/Vol]0.85 mg/dLNormal0.40-1.00ProNorth Texas Medical CenterComment on above:Result Comment: METHOD TRACEABLE TO IDMS STANDARDPerformed By: #### BMP #### [facility] ([address] [place] [address] VIRGFR/1.73 sq M.predicted among non-blacks MDRD (S/P/Bld) [Vol rate/Area]68 mL/min/{1.73_m2}Normal>=60ProNorth Texas Medical CenterComment on above:Result Comment: eGFR not reported due to non-numeric value for Creatinine. Reported eGFR is based on the CKD-EPI 2020 equation that does not use a race coefficient.Performed By: #### BMP #### [facility] ([address] [place] [address] VIRGlucose [Mass/Vol]100 mg/rTLdjw50-48WlrBggqnlNorth Texas Medical CenterComment on above:Performed By: #### BMP #### [facility] ([address] [address] VIRPotassium [Moles/Vol]3.8 mmol/LNormal3.5-5.0ProNorth Texas Medical CenterComment on above:Performed By: #### BMP #### [facility] ([address] [address] VIRSodium [Moles/Vol]142 mmol/QVmbeaq470-038MlaZreygi Fremont HospitalComment on above:Performed By: #### BMP #### [facility]Richard [facility] ([address] [address] VIRUrea nitrogen [Mass/Vol]17 mg/dLNormal5-27ProNorth Texas Medical CenterComment on above:Performed By: #### BMP #### [facility] ([address] [address] VIRBasic Metabolic Panelon [id number] gap [Moles/Vol]8 mmol/L5 - 15 mmol/[facility] SystemCalcium [Mass/Vol]10 mg/dL8.5 - 10.5 mg/dLEast Liverpool City HospitalChloride [Moles/Vol]109 mmol/L98 - 109 mmol/L [facility] HospitalCO2 [Moles/Vol]25 mmol/L22 - 32 mmol/[facility] SystemCreatinine [Mass/Vol]0.85 mg/dL0.40 - 1.00 mg/dLEast [facility] Hospital Comment on above:METHOD TRACEABLE TO [facility] STANDARDEGFR Non-Race Wgqzyuyak69- Reston Hospital CenterComment on above:eGFR not reported due to non-numeric value for Creatinine. Reported eGFR is based on the CKD-EPI 2020 equation that does not use a race coefficient. Glucose [Mass/Vol]100 mg/iIBrac05 - 99 mg/dLEast [facility] City Hospital Interpretation and review of laboratory resultsAbnormalEast [facility] City Hospital Potassium [Moles/Vol]3.8 mmol/L3.5 - 5.0 mmol/LProMedica Health SystemSodium [Moles/Vol]142 mmol/L134 - 146 mmol/LProMedica Health SystemUrea nitrogen [Mass/Vol]17 mg/dL5 - 27 mg/dLEast Liverpool City HospitalProAultman Alliance Community HospitalCBC WITH AUTO DIFFERENTIALon [id number] ABSOLUTE COUNT (10*3/UL) BY AUTOMATED COUNT0.0 10*3/uLNormal0.0-0.2PSelect Medical Specialty Hospital - Columbus SouthComment on above:Performed By: #### CBCA #### [address] [address] VIRBASOPHILS RELATIVE PERCENT BY AUTOMATED COUNT0.2 %Normal [facility] Pointe HospitalComment on above:Performed By: #### CBCA #### [address] [address] VIRCELLAVISION DIFFERENTIAL TYPEAUTOMATED DIFFERENTIALNormal [facility] HospitalComment on above:Performed By: #### CBCA #### [address] [address] VIREosinophils (Bld) [#/Vol]0.1 10*3/uLNormal0.0-0.4[facility] HospitalComment on above:Performed By: #### CBCA #### [address] [address] VIREOSINOPHILS RELATIVE PERCENT BY AUTOMATED COUNT0.7 %Normal [facility] HospitalComment on above:Performed By: #### CBCA #### [address] [address] VIRErythrocyte distribution width (RBC) [Ratio]13.3 %Normal 11.5-15ProNorth Texas Medical CenterComment on above:Performed By: #### CBCA #### [facility] [address] [address] VIRHematocrit (Bld) [Volume fraction]37.1 %Diaxlz29-05 [facility] HospitalComment on above:Performed By: #### CBCA #### [address] [address] VIRHemoglobin (Bld) [Mass/Vol]12.5 g/hZYaigfg51.7-15.5 [facility] HospitalComment on above:Performed By: #### CBCA #### [facility] ([address] [address] VIRLYMPHOCYTES ABSOLUTE COUNT (10*3/UL) BY AUTOMATED COUNT0.5 10*3/uLLow1.0-3.5PSelect Medical Specialty Hospital - Columbus SouthComment on above:Performed By: #### CBCA #### [facility] ([address] [address] VIRLYMPHOCYTES RELATIVE PERCENT BY AUTOMATED COUNT6.5 %Normal [facility] HospitalComment on above:Performed By: #### CBCA #### [facility] ([address] [address] VIRMCH (RBC) [Entitic mass]29.0 tyFakpqp79-29TzvBvlzcwNorth Texas Medical CenterComment on above:Performed By: #### CBCA #### [facility] ([address] [address] VIRMCHC (RBC) [Mass/Vol]33.7 g/qXAmncof54-27CidXefwuzNorth Texas Medical CenterComment on above:Performed By: #### CBCA #### [address] [address] VIRMCV (RBC) [Entitic vol]86 fHSyuyge84-299NgaXpzkqk Fremont HospitalComment on above:Performed By: #### CBCA #### [facility] ([facility]) [address] [place] [address] [place] [address] VIRMONOCYTES ABSOLUTE COUNT (10*3/UL) BY AUTOMATED COUNT0.4 10*3/uLNormal0.0-0.9[facility] HospitalComment on above:Performed By: #### CBCA #### [facility] ([facility]) [address] [place] [address] [place] [address] VIRMONOCYTES RELATIVE PERCENT BY AUTOMATED COUNT5.3 %Normal [facility] HospitalComment on above:Performed By: #### CBCA #### [facility] ([address] [place] [address] VIRNEUTROPHILS ABSOLUTE COUNT BY AUTOMATED COUNT7.3 10*3/uL High1.5-6.6ProNorth Texas Medical CenterComment on above:Performed By: #### CBCA #### [facility] ([address] [address] VIRNEUTROPHILS RELATIVE PERCENT BY AUTOMATED COUNT87.3 %Normal [facility] HospitalComment on above:Performed By: #### CBCA #### [facility] ([address] [place] [address] VIRPlatelet mean volume (Bld) [Entitic vol]8.5 fLNormal7-12 [facility] HospitalComment on above:Performed By: #### CBCA #### [facility] ([address] [place] [address] VIRPlatelets (Bld) [#/Vol]161 10*3/jQJwuoiy257-092LlrDyijks Fremont HospitalComment on above:Performed By: #### CBCA #### [facility] ([address] [place] [address] VIRRBC COUNT4.32 X10E12/LNormal3.8-5.2PSelect Medical Specialty Hospital - Columbus SouthComment on above:Performed By: #### CBCA #### [facility] ([facility]) [address] [place] [address] [place] [address] VIRWBC (Bld) [#/Vol]8.4 10*3/uLNormal4-11[facility] HospitalComeaton rapids medical center on above:Performed By: #### CBCA #### [facility] ([address] [place] [address] VIRCBC auto differentialon [id number] (Bld) [#/Vol]0 10*3/uL0.0 - 0.2 10*3/uLEast Liverpool City HospitalBasophils/100 WBC (Bld)0.2 % [facility] HospitalDifferential cell count method Nom (Bld)AUTOMATED DIFFERENTIALEast Liverpool City HospitalEosinophils (Bld) [#/Vol]0.1 10*3/uL0.0 - 0.4 10*3/uLEast Liverpool City HospitalEosinophils/100 WBC (Bld)0.7 %[facility] HospitalErythrocyte distribution width (RBC) [Ratio]13.3 %11.5 - 15 %[facility] HospitalHematocrit (Bld) [Volume fraction]37.1 %35 - 47 %[facility] HospitalHemoglobin (Bld) [Mass/Vol]12.5 g/dL11.7 - 15.5 g/dLEast Liverpool City HospitalInterpretation and review of laboratory resultsAbnormalEast Liverpool City HospitalLymphocytes (Bld) [#/Vol]0.5 10*3/uLLow1.0 - 3.5 10*3/uLEast Liverpool City HospitalLymphocytes/100 WBC (Bld)6.5 %[facility] HospitalH (RBC) [Entitic mass]29 pg27 - 34 pgPProMedica Defiance Regional HospitalMCHC (RBC) [Mass/Vol]33.7 g/dL32 - 36 g/dLEast Liverpool City HospitalMCV (RBC) [Entitic vol]86 fL80 - 100 [facility] CenterMonocytes (Bld) [#/Vol]0.4 10*3/uL0.0 - 0.9 10*3/uLCorey Hospital SystemMonocytes/100 WBC (Bld)5.3 %[facility] Hospital SystemNeutrophils (Bld) [#/Vol]7.3 10*3/uLHigh1.5 - 6.6 10*3/uLProPomerene Hospital SystemNeutrophils/100 WBC (Bld)87.3 %[facility] SystemPlatelet mean volume (Bld) [Entitic vol] 8.5 fL7 - 12 [facility] SystemPlatelets (Bld) [#/Vol]161 10*3/uL [facility] SystemRBC (Bld) [#/Vol]4.32 10*6/uLEast Liverpool City HospitalWBC LM Ql (Sput)8.4[facility] of YorkCT BRAIN WO CONTon [id number] BRAIN WO CONTCT BRAIN WO CONT CT BRAIN WO CONT CLINICAL INFORMATION: fall, on plavix, no LOC COMPARISON: 05/16/2022. PROCEDURE: Routine CT Head obtained without contrast. All CT scans at this facility use dose modulation, iterative reconstruction, and/or weight based dosing when appropriate to reduce radiation dose to as low as reasonably achievable. FINDINGS: No acute intracranial hemorrhage. No mass effect or midline shift. No extra axial fluid collection. No hydrocephalus. Mathias-white differentiation is preserved. No depressed calvarial fracture. IMPRESSION: * No acute intracranial findings by CT. Finalized by Hua Bradley MD on 02/25/2025 10:55 AMNormalCleveland Clinic South Pointe HospitalCT Head WO contraston [id number] BRAIN WO CONT CLINICAL INFORMATION: fall, on plavix, no LOC COMPARISON: 05/16/2022. PROCEDURE: Routine CT Head obtained without contrast. All CT scans at this facility use dose modulation, iterative reconstruction, and/or weight based dosing when appropriate to reduce radiation dose to as low as reasonably achievable. FINDINGS: No acute intracranial hemorrhage. No mass effect or midline shift. No extra axial fluid collection. No hydrocephalus. Mathias-white differentiation is preserved. No depressed calvarial fracture. IMPRESSION: * No acute intracranial findings by CT. Finalized by Hua Bradley MD on 02/25/2025 10:55 Hua Guo MD - 02/25/2025 CT BRAIN WO CONT CLINICAL INFORMATION: fall, on plavix, no LOC COMPARISON: 05/16/2022. PROCEDURE: Routine CT Head obtained without contrast. All CT scans at this facility use dose modulation, iterative reconstruction, and/or weight based dosing when appropriate to reduce radiation dose to as low as reasonably achievable. FINDINGS: No acute intracranial hemorrhage. No mass effect or midline shift. No extra axial fluid collection. No hydrocephalus. Mathias-white differentiation is preserved. No depressed calvarial fracture. IMPRESSION: * No acute intracranial findings by CT. Finalized by Hua Bradley MD on 02/25/2025 10:55 AM [facility] UniversityRadiology Study observation (narrative)[facility] UniversityCT Head WO contrastOrdered By: Hua Bradley on [id number] Hopkins University Work Phone: CT LUMBAR SPINE WO CONTon [id number] LUMBAR SPINE WO CONTCT LUMBAR SPINE WO CONT Study: Ct Lumbar spine History: Recent fall. Pain after trauma Technique: Axial images from the lower thoracic spine through the lumbar spine were obtained followed by sagittal and coronal reconstructed images. Findings/impression: Prior L4 laminectomy. Transpedicular screws placed for fusion of L4-L5. Intervertebral disc spacingmaterial is also noted. Hardware appears well incorporated into the bone and free of any acute complication. Bony fusion is noted along the left facets. Underlying levoscoliosis is appreciated. No CT evidence of acute vertebral body fracture. No loss in height. Arthrosis is noted. No spondylolysis. The bone trabeculation is poor. This does hamper assessment of nondisplaced fractures. If pain or concern persists consider follow-up MR imaging. Vacuumdisc phenomenon with disc space narrowing is appreciated at L2-3 and L1-2. SI joints appear symmetric. The abdominal aorta is tortuous. Atherosclerotic disease is noted. Psoas muscles appear symmetric All CT scans at this facility use dose modulation, iterative reconstruction, and/or weight based dosing when appropriate to reduce radiation dose to as low as reasonably achievable. Finalized by Rosario Stauffer MD on 02/25/2025 11:02 [facility], Cancer CenterCT Lumbar spine WO contraston 02-25-2025 Study: Ct Lumbar spine History: Recent fall. Pain after trauma Technique: Axial images from the lower thoracic spine through the lumbar spine were obtained followed by sagittal and coronal reconstructed images. Findings/impression: Prior L4 laminectomy. Transpedicular screws placed for fusion of L4-L5. Intervertebral disc spacingmaterial is also noted. Hardware appears well incorporated into the bone and free of any acute complication. Bony fusion is noted along the left facets. Underlying levoscoliosis is appreciated. No CT evidence of acute vertebral body fracture. No loss in height. Arthrosis is noted. No spondylolysis. The bone trabeculation is poor. This does hamper assessment of nondisplaced fractures. If pain or concern persists consider follow-up MR imaging. Vacuum disc phenomenon with disc space narrowing is appreciated at L2-3 and L1-2. SI joints appear symmetric. The abdominal aorta is tortuous. Atherosclerotic disease is noted. Psoas muscles appear symmetric All CT scans at this facility use dose modulation, iterative reconstruction, and/or weight based dosing when appropriate to reduce radiation dose to as low as reasonably achievable. Finalized by Rosario Stauffer MD on 02/25/2025 11:02 [facility] MED[facility] CENTERCLARICERosario Stauffer MD - 02/25/2025 Study: Ct Lumbar spine History: Recent fall. Pain after trauma Technique: Axial images from the lower thoracic spine through the lumbar spine were obtained followed by sagittal and coronal reconstructed images. Findings/impression: Prior L4 laminectomy. Transpedicular screws placed for fusion of L4-L5. Intervertebral disc spacingmaterial is also noted. Hardware appears well incorporated into the bone and free of any acute complication. Bony fusion is noted along the left facets. Underlying levoscoliosis is appreciated. No CT evidence of acute vertebral body fracture. No loss in height. Arthrosis is noted. No spondylolysis. The bone trabeculation is poor. This does hamper assessment of nondisplaced fractures. If pain or concern persists consider follow-up MR imaging. Vacuum disc phenomenon with disc space narrowing is appreciated at L2-3 and L1-2. SI joints appear symmetric. The abdominal aorta is tortuous. Atherosclerotic disease is noted. Psoas muscles appear symmetric All CT scans at this facility use dose modulation, iterative reconstruction, and/or weight based dosing when appropriate to reduce radiation dose to as low as reasonably achievable. Finalized by Rosario Stauffer MD on 02/25/2025 11:02 AM [facility] HospitalRadiology Study observation (narrative)[facility] HospitalCT Lumbar spine WO contrastOrdered By: Rosario Stauffer on [id number] [facility] Work Phone: CT PELVIS WO CONTon [id number] PELVIS WO CONTCT PELVIS WO CONT STUDY: PELVIS CT WITHOUT CONTRAST CLINICAL HISTORY: Pelvic pain COMPARISON: 10/23/2018 TECHNIQUE: CT pelvis was performed utilizing 5 mm axial reconstructions without contrast. Coronal and sagittal reformatted images were obtained and reviewed. Automated exposure control was utilized. FINDINGS: Streak artifact resulting from lumbar fusion hardware with multilevel degenerative disc disease. There is degenerative changes of the bilateral sacroiliac joints with degenerative changes of the bilateral hips. There is no definitive acute process, fracture or dislocation. 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 Acute-appearing mildly displaced fracture of the right pubic bone and non- displaced fracture of theright ischial tuberosity. . If the patient is unable to bear weight or if there is concern for nondisplaced hip fracture, consider correlation with MRI. IMPRESSION: 1. There is acute appearing mildly displaced fracture of the right pubic bone and nondisplaced fracture of the right ischial tuberosity. All CT scans at this facility use dose modulation, iterative reconstruction, and/or weight based dosing when appropriate to reduce radiation dose to as low as reasonably achievable. Finalized by Edin Bedolla MD on 02/25/2025 11:09 [facility] Cancer CenterCT Pelvis WO contraston 02-25-2025 STUDY: PELVIS CT WITHOUT CONTRAST CLINICAL HISTORY: Pelvic pain COMPARISON: 10/23/2018 TECHNIQUE: CT pelvis was performed utilizing 5 mm axial reconstructions without contrast. Coronal and sagittal reformatted images were obtained and reviewed. Automated exposure control was utilized. FINDINGS: Streak artifact resulting from lumbar fusion hardware with multilevel degenerative disc disease. There is degenerative changes of the bilateral sacroiliac joints with degenerative changes of the bilateral hips. There is no definitive acute process, fracture or dislocation. 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 Acute-appearing mildly displaced fracture of the right pubic bone and non- displaced fracture of theright ischial tuberosity. . If the patient is unable to bear weight or if there is concern for nondisplaced hip fracture, consider correlation with MRI. IMPRESSION: 1. There is acute appearing mildly displaced fracture of the right pubic bone and nondisplaced fracture of the right ischial tuberosity. All CT scans at this facility use dose modulation, iterative reconstruction, and/or weight based dosing when appropriate to reduce radiation dose to as low as reasonably achievable. Finalized by Edin Bedolla MD on 02/25/2025 11:09 Edin Arias MD - 02/25/2025 STUDY: PELVIS CT WITHOUT CONTRAST CLINICAL HISTORY: Pelvic pain COMPARISON: 10/23/2018 TECHNIQUE: CT pelvis was performed utilizing 5 mm axial reconstructions without contrast. Coronal and sagittal reformatted images were obtained and reviewed. Automated exposure control was utilized. FINDINGS: Streak artifact resulting from lumbar fusion hardware with multilevel degenerative disc disease. There is degenerative changes of the bilateral sacroiliac joints with degenerative changes of the bilateral hips. There is no definitive acute process, fracture or dislocation. 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 Acute-appearing mildly displaced fracture of the right pubic bone and non- displaced fracture of theright ischial tuberosity. . If the patient is unable to bear weight or if there is concern for nondisplaced hip fracture, consider correlation with MRI. IMPRESSION: 1. There is acute appearing mildly displaced fracture of the right pubic bone and nondisplaced fracture of the right ischial tuberosity. All CT scans at this facility use dose modulation, iterative reconstruction, and/or weight based dosing when appropriate to reduce radiation dose to as low as reasonably achievable. Finalized by Edin Bedolla MD on 02/25/2025 11:09 AM [facility] YorkRadiology Study observation (narrative)[facility] SceneShot [facility] Rehabilitation CenterLight Blue Topon [id number] TubeAuto Mission HospitalNo Panel Informationon [id number] TubeAuto [facility] POCT NURSING URINE MACROSCOPIC UAon [id number] NURNegativeNormal NegativeProMedica Ashford HospitalComment on above:Performed By: #### CA #### [facility] ([facility]) [address] [place] [address] VIRBLOOD/HGB NURNegativeNoformerly alexander community hospitalNegativeC[facility] Clinic [facility] Pointe HospitalComment on above:Performed By: #### CA #### [facility] ([facility]) [address] [place] [address] VIRGLUCOSE NURNegativeFarmingtonNegTriHealth Good [facility]ar[facility] Comment on above:Performed By: #### CA #### [facility] ([facility]) [address] [place] [address] VIRKETONES [facility] CORPORATIONNegativeSycamore Medical Center Comment on above:Performed By: #### CA #### [facility] ([facility]) [address] [place] [address] VIRLEUKOCYTE ESTERASE NURNegativeSycamore Medical CenterComment on above:Performed By: #### CA #### [facility] ([facility]) [address] [place] [address] VIRNITRITE NURNorth Knoxville Medical Center Comment on above:Performed By: #### CA #### [facility] ([facility]) [address] [place] [address] VIRPH NUR7.8Cvfopg0.0, 6.0, 6.5, 7.0, 7.5, 8.0, 8.5, 5.5 [facility] Children'S Rehabilitation HospitalComment on above:Performed By: #### CA #### [facility] ([facility]) [address] [place] [address] VIRPROTEIN NURNegativeSycamore Medical Center Comment on above:Performed By: #### CA #### [facility] ([facility]) [address] [place] [address] VIRSPECIFIC GRAVITY NUR1.337Fjxdte2.010, 1.015, 1.020, 1.025 [facility] HospitalComment on above:Performed By: #### CA #### [facility] ([facility]) [address] [place] [address] VIRUROBILINOGEN NUR0.2 E.U./dLKettering Health Hamilton Comment on above:Performed By: #### CA #### [facility] ([facility]) [address] [place] [address] VIRPOCT Nursing Urine Macroscopic UAon [id number] Ql (U)NegativeNegativeWVUMedicine Harrison Community Hospitalca Health SystemGlucose [Mass/Vol]NegativeNegative [facility] Hospital SystemHemoglobin Ql (U)NegativeNegativeOhioHealth Hardin [facility] Health System Ketones (U) [Mass/Vol]NegativeNegativeCorey Hospital SystemLeukocyte esterase Test strip Ql (U)NegativeNegativeWVUMedicine Harrison Community Hospitalca Health SystemNitrite Ql (U)Negative NegativeOhioHealth Hardin Memorial Hospital Health SystempH (U)7.0 [pH]5.0, 6.0, 6.5, 7.0, 7.5, 8.0, 8.5, 5.5ProMedica Health SystemProtein Ql (U)NegativeNegativeOhioHealth Hardin Memorial Hospital Health System Specific gravity (U) [Rel density]1.0101.010, 1.015, 1.020, 1.025[facility] Hospital SystemUrobilinogen Qn (U)0.309926114 {Ej'U}/dLProUniversity Of South Alabama Children[facility]S And Women'S Hospital Health SystemProUniversity Of South [facility] Children'[facility]'S Hospital Health SystemXR ELBOW RT 2 VWSon [id number] ELBOW RT 2 VWSXR ELBOW RT 2 VWS XR ELBOW RT 2 VWS HISTORY: Fall, right elbow pain and swelling COMPARISON: 12/01/2023 FINDINGS: No acute fracture or malalignment. Joint spaces are well-preserved. No joint effusion. Focal soft tissue swelling overlying the dorsal proximal ulna. IMPRESSION: * No acute osseous abnormality. * Focal soft tissue swelling over the proximal dorsal ulna. Approved by Resident: Segundo Sanford MD on 02/25/2025 10:27 AM IEdin MD have personally reviewed the image(s) and agree with and/or edited the report Finalized by Edin Bedolla MD on 02/25/2025 10:28 AMNClinton Memorial HospitalXR Elbow - right 2 Viewson [id number] ELBOW RT 2 VWS HISTORY: Fall, right elbow pain and swelling COMPARISON: 12/01/2023 FINDINGS: No acute fracture or malalignment. Joint spaces are well-preserved. No joint effusion. Focal soft tissue swelling overlying the dorsal proximal ulna. IMPRESSION: * No acute osseous abnormality. * Focal soft tissue swelling over the proximal dorsal ulna. Approved by Resident: Segundo Sanford MD on 02/25/2025 10:27 AM Edin Gould MD have personally reviewed the image(s) and agree with and/or edited the report Finalized by Edin Bedolla MD on 02/25/2025 10:28 Edin Arias MD - 02/25/2025 XR ELBOW RT 2 VWS HISTORY: Fall, right elbow pain and swelling COMPARISON: 12/01/2023 FINDINGS: No acute fracture or malalignment. Joint spaces are well-preserved. No joint effusion. Focal soft tissue swelling overlying the dorsal proximal ulna. IMPRESSION: * No acute osseous abnormality. * Focal soft tissue swelling over the proximal dorsal ulna. Approved by Resident: Segundo Sanford MD on 02/25/2025 10:27 AM Edin Gould MD have personally reviewed the image(s) and agree with and/or edited the report Finalized by Edin Bedolla MD on 02/25/2025 10:28 AM [facility] HospitalCPXi SystemRadiology Study observation (narrative)[facility] HospitalCPXi [facility] CenterXR Elbow - right 2 ViewsOrdered By: Edin Bedolla on 11-18-8394CqtUprjtz [facility] Work Phone: CALCIUMon 40-37-4070Htehdnm [Mass/Vol]10.4 mg/dLNormal 8.5-10.5PSelect Medical Specialty Hospital - Columbus SouthComment on above:Performed By: #### CA #### [facility] ([facility]) [address] [place] [address] VIRCREATININE, SERUMon 60-90-8273Thgncyemvc [Mass/Vol]0.81 mg/dLNormal0.40-1.00[facility] HospitalComment on above:Result Comment: METHOD TRACEABLE TO IDMS STANDARDPerformed By: #### LINUX KERNEL DEVELOPER #### [facility] ([facility]) [address] [place] [address] VIRGFR/1.73 sq M.predicted among non-blacks MDRD (S/P/Bld) [Vol rate/Area]72 mL/min/{1.73_m2}Normal>=60ProNorth Texas Medical CenterComment on above:Result Comment: Reported eGFR is based on the CKD-EPI 2020 equation that does not use a race coefficient.Performed By: #### LINUX KERNEL DEVELOPER #### [facility] ([facility]) [address] [place] [address] VIRVITAMIN D 25 HYDROXYon 85-94-3462RQMUMLX D 25 HYD TOT71.2 ng/aOIxnwvs12.0-100.0ProNorth Texas Medical CenterComeaton rapids medical center on above:Order Comment: Vitamin D status 25 [place] Vitamin D Deficiency <20 ng/mL Insufficiency 20-29 ng/mL Sufficiency 30-100 ng/mL Toxicity >100 ng/mL NOTE: A pediatric reference range has not been established by the client services administrator of this kit. The [place] [employer] recommends a Vitamin D level of = or >20ng/mL in infants and children.Performed By: #### VITD #### [facility] ([facility]) [address] [place] [address] VIRXR CHEST 2 VWSon 78-64-4127SF CHEST 2 VWSXR CHEST 2 VWS Chest 2 views History: Shortness of breath Comparison: 12/01/2023 Findings: Chest 2 views. Stable cardiomediastinal silhouette. There is no focal opacity, effusion or pneumothorax. Impression: No evident acute cardiopulmonary process. Finalized by Edin Bedolla MD on 10/07/2024 12:57 PMNormalProMedica Monrovia Community Hospital AND AUTO DIFFon 78-92-2370APSKQJNS BASOPHIL0.0 X10E9/LNormal0.0-0.2 ProMCleveland Clinic Lutheran Hospital HospitalComment on above:Performed By: #### CBCRichard, 25254-0, 2132-02, 3050-0, THYR #### [facility] ([id number]) [address], [address] [place], [place] [address]ABTESMWV NEUTROPHIL2.8 X10E9/LNormal1.5-6.6Doctors HospitalComment on above:Performed By: #### CBCRichard, 56908-3, 2132-02, 0, THYR #### [facility] ([id number]) [address], [address] [place], [place] [address]Dzkwyudho/100 WBC (Bld)0.7 %[facility] Comment on above:Performed By: #### CBCRichard, 41767-7, 2132-02, 0, THYR #### [facility] ([id number]) [address], [address] [place], [place] [address]Kvjccqxmrrm (Bld) [#/Vol]0.1 10*3/uLNormal0.0-0.4ProAultman Alliance Community HospitalComment on above:Performed By: #### CBCA, 79729-0, 2132-02, 3050- 0, THYR #### [facility] ([id number]) [address], [address] [place], [place] [address]Wxgxzgbrpke/100 WBC (Bld)3.4 %[facility] Comment on above:Performed By: #### CBCA, 17390-9, 2132-02, 3050-0, THYR #### [facility] ([id number]) [address], [address] [place], [place] [address]Rtcrbhgldok distribution width (RBC) [Ratio]13.2 %Normal 11.5-15.0ProAultman Hospital HospitalComment on above:Performed By: #### CBCRichard, 29255-0, 2132-02, 3050-0, THYR #### [facility] ([id number]) [address], [address] [place], [place] [address]Ywmvgqpimc (Bld) [Volume fraction]39.1 %Mmmyon73-63QrgNwettn [place]edo HospitalComment on above:Performed By: #### CBCRichard, 95713-6, 2132-02, 0, THYR #### [facility] ([id number]) [address] [place], [place] [address]Itivdiqgzl (Bld) [Mass/Vol]13.2 g/nSIfoacn28.7-15.5ProMedParkview Health Bryan Hospital HospitalComment on above:Performed By: #### CBCRichard, 82849-5, 2132-02, 0, THYR #### [facility] ([id number]) [address], [address] [place], [place] [address]Olwawfnkwjv (Bld) [#/Vol]0.6 10*3/uLLow1.0-3.5PDayton Osteopathic Hospital HospitalComment on above:Performed By: #### CBCA, 17537-2, 2132-02, 3050-0, THYR #### [facility] ([id number]) [address] [place], [place] [address]Oqfargqlcwa/100 WBC (Bld)15.8 %NormalProAultman Hospital Hospital Comment on above:Performed By: #### CBCA, 56678-4, 2132-02, 3050-0, THYR #### [facility] ([id number]) [address] [place], [place] [address]VZT (RBC) [Entitic mass]29.2 arQrzmlj19-84LrkOvcjsg Baldwin HospitalComment on above:Performed By: #### CBCA, 18119-7, 2132-02, 3050-0, THYR #### [facility] ([id number]) [address] [place], [place] [address]ZNAI (RBC) [Mass/Vol]33.7 g/aHUwrert02-24BvqXhymym Baldwin HospitalComment on above:Performed By: #### CBCA, 69438-8, 2132-02, 3050-0, THYR #### [facility] ([id number]) [address] [place], [place] [address]TTZ (RBC) [Entitic vol]87 fXKuxkse31-821TxuXtfwnh [place] HospitalComment on above:Performed By: #### CBCA, 11534-5, 2132-02, 3050-0, THYR #### [facility] ([id number]) [address] [place], [place] [address]Qqijxcesd (Bld) [#/Vol]0.4 10*3/uLNormal0-0.9Pro[facility]ica [facility] HospitalComment on above:Performed By: #### CBCA, 23426-0, 2132-02, 3050-0, THYR #### [facility] ([id number]) [address], [address] [place], [place] [address]Cqpkcbxju/100 WBC (Bld)9.8 %NormalProMedica Baldwin Hospital Comment on above:Performed By: #### CBCA, 63890-7, 2132-02, 3050-0, THYR #### [facility] ([id number]) [address], [address] [place], [place] [address]Dpguhfiblgj/100 WBC (Bld)70.3 %NormalProMedica Baldwin Hospital Comment on above:Performed By: #### WENDY, 17094-0, 2132-02, 3050-0, THYR #### [facility] ([id number]) [address], [address] [place], [place] [address]Inpdcxko mean volume (Bld) [Entitic vol]8.4 fLNormal7-12 ProMCleveland Clinic Lutheran Hospital HospitalComment on above:Performed By: #### WENDY, 79459-2, 2132-02, 3050-0, THYR #### [facility] ([id number]) [address] [place], [place] [address]Luxnxowmb (Bld) [#/Vol]182 10*3/aCXjtpcx348-468NtxDzumgr [place] HospitalComment on above:Performed By: #### WENDY, 42283-5, 2132-02, 0, THYR #### [facility] ([id number]) [address], [address] [place], [place] [address]QJR COUNT4.51 X10E12/LNormal3.80-5.20[facility] Comment on above:Performed By: #### WENDY, 87833-7, 2132-02, 0, THYR #### [facility] ([id number]) [address] [place], [place] [address]HVK (Bld) [#/Vol]4.0 10*3/uLNormal4.0-11.0ProAultman Alliance Community HospitalComment on above:Performed By: #### WENDY, 01937-9, 2132-02, 3050-0, THYR #### [facility] ([id number]) [address], [address] [place], [place] [address]NWAE T3on 80-11-1236Fdgv T3 [Mass/Vol]2.82 pg/mLNormal2.50-3.90 [facility] HospitalComment on above:Performed By: #### WENDY, 18172-7, 2132-02, 0, THYR #### [facility] ([id number]) [address] [place], [place] [address]Krldiisjqhlsqc [Moles/Vol]on 82-59-1476Qjdjuglooalif Acid, QN, P 0.20 nmol/mLNormal<=0.40ProMedica [place] HospitalComment on above:Result Comment: NOTE ADDITIONAL INFORMATION This test was developed and its performance characteristics determined by [facility] in a manner consistent with CLIA requirements. This test has not been cleared or approved by the U.S. Food and Drug Administration. Test Performed by: [place] [address] Ship Construction Teacher: Ferny Puckett Ph.D.; CLIA# [id number] By: #### WENDY, 26520-0, 2132-02, , THYR #### [facility] ([id number]) [address], [address] [place] [address]REZPVVQ PROFILEon 54-32-8232Zlci T4 [Mass/Vol]0.95 ng/dLNormal 0.61-1.60Pro[facility]ica [place] HospitalComment on above:Performed By: #### WENDY, 60965-8, 2132-02, , THYR #### [facility] ([id number]) [address], [address] [place], [place] [address]VUF0.30 uIU/mLNormal0.49-4.67ProCleveland Clinic Akron Generalca [facility] HospitalComment on above:Performed By: #### WENDY, 42449-2, 2132-02, 0, THYR #### [facility] ([id number]) [address], [address] [place], [place] [address]JAAWNDI B12on 18-40-4567Iyqipbjow (Vitamin B12) [Mass/Vol]260 pg/qKUsasab148-194DamPivszy [facility] HospitalComment on above:Performed By: #### WENDY, 78511-8, 2132-02, 0, THYR #### [facility] ([id number]) [address] [place], [place] [address]Oacflrc D+Metabolites [Mass/Vol]on 43-37-1668QJYMJJJ D 25 HYD TOT65.6 ng/dXTtocjq98-365VweTafzbb [facility] HospitalComment on above:Result Comment: Vitamin D status 25 [place] Vitamin D Deficiency <20 ng/mL Insufficiency 20-29 ng/mL Sufficiency 30-100 ng/mL Toxicity >100 ng/mL NOTE: A pediatric reference range has not been established by the client services administrator of this kit. The [place] [employer] recommends a Vitamin D level of = or >20ng/mL in infants and children.Performed By: #### WENDY, 65033-1, 2132-02, 0, THYR #### [facility] ([id number]) [address], [address] [place], [place] [address]SG SHOULDER RT WO CONTon 47-19-5636VB SHOULDER RT WO CONTMR SHOULDER RT WO CONT History: Impingement syndrome [...] by Blake Sher MD on 04/29/2024 4:38 PMNormalProMedica [facility] Panel Informationon 273197-Wvppses Vitamin D Total43.9 ng/mL [facility] HospitalComment on above:<20 ng/mL Vit D towrrvhoj62- <30 ng/mL Vit D efkebioersoh27-622 ng/mL Vit D sufficient>100 ng/mL Potential ToxicityBasophils Auto (Bld) [#/Vol]on 73-27-1968Znqjzagnu (Bld) [#/Vol]0.0 10 3/uL0.0-0.1FLouis Stokes Cleveland VA Medical CenterBasophils/100 WBC Auto (Bld)on 77-34-4934Trwwxnevv/100 WBC (Bld)0.4 %0.2-2.0[facility] Eosinophils/100 WBC Auto (Bld)on 96-07-7005Hszzdjgdcka/100 WBC (Bld)4.0 %0.9-7.0 [facility] HospitalErythrocyte distribution width Auto (RBC) [Ratio]on 12-30-3954Jhqpqpvhnfq distribution width (RBC) [Ratio]12.0 %11.0-15.0 [facility] HospitalHematocrit Auto (Bld) [Volume fraction]on 90-39-6168Tdpsqfujom (Bld) [Volume fraction]36.2 %36.0-48.0[facility] HospitalHemoglobin [Mass/volume] in Bloodon 12-16-8728Jjpttxtwlk (Bld) [Mass/Vol]12.0 g/dL12.0-16.0[facility] HospitalIron binding capacity [Mass/volume] in Serum or Plasmaon 08-33-1629Chnj binding capacity [Mass/Vol]368.0 ug/dL250.0-450.0[facility] HospitalIron saturation [Mass Fraction] in Serum or Plasmaon 30-63-9412Qyfy saturation [Mass fraction] 24.5 %[facility] HospitalLaboratory - Chemistry and Chemistry - challengeon 42-75-5810Isvf [Mass/Vol]90.0 ug/dL50.0-170.0[facility] HospitalLaboratory - Hematology and Cell countson 15-47-6165Uxamvvev granulocytes/100 WBC (Bld)0.0 %0.0-0.5FLouis Stokes [facility] Center Leukocytes [#/volume] corrected for nucleated erythrocytes in Blood by Automated counon 01-25-3226GUS corrected for nucl RBC Auto (Bld) [#/Vol]5.0 10 3/uL 4.0-11.0[facility] HospitalLymphocytes Auto (Bld) [#/Vol]on 33-64-7639Ssnsmtuoqai (Bld) [#/Vol]1.0 10 3/uLLow1.2-3.8[facility] HospitalLymphocytes/100 WBC Auto (Bld)on 89-01-1652Rtmudjcjnvk/100 WBC (Bld)20.5 %20.5-60.0[facility] Health SystemH Auto (RBC) [Entitic mass]on 61-48-1214QMF (RBC) [Entitic mass]29.8 pg26.7-34.0[facility] HospitalMCHC Auto (RBC) [Mass/Vol]on 64-13-9391CVMY (RBC) [Mass/Vol]33.1 g/dL29.9-35.2FLouis Stokes Cleveland VA Medical CenterMCV Auto (RBC) [Entitic vol]on 69-08-8707SKL (RBC) [Entitic vol]89.8 fL81.0-99.0[facility] HospitalMonocytes Auto (Bld) [#/Vol]on 09-56-7803Txphjaily (Bld) [#/Vol]0.4 10 3/uL0.3-0.8[facility] HospitalMonocytes/100 WBC Auto (Bld)on 69-22-1039Lzhgskmee/100 WBC (Bld)8.4 %1.7-12.0[facility] Neutrophils Auto (Bld) [#/Vol]on 11-40-5218Mggzgzxszzj (Bld) [#/Vol]3.4 10 3/uL 1.4-6.5FLouis Stokes Cleveland VA Medical CenterNeutrophils/100 WBC Auto (Bld)on 38-54-7826Nyibajbmicm/100 WBC (Bld)66.7 %43.0-75.0[facility] HospitalNo Panel Informationon 74-37-9908Reiopzcpfcv # (Auto)0.2 10 3/uL0.0-0.7 [facility] HospitalImmature Granulocyte # (Auto)0.00 10 3/uL 0.00-0.03[facility] HospitalPlatelet mean volume Auto (Bld) [Entitic vol]on 32-70-4873Lnpwnkxl mean volume (Bld) [Entitic vol]9.7 fL9.5-13.5 [facility] HospitalPlatelets Auto (Bld) [#/Vol]on 11-26-2023 Platelets (Bld) [#/Vol]173 10 3/kM295-207QymvsnllxAvita Health System Ontario HospitalRBC Auto (Bld) [#/Vol]on 45-52-2400NCD (Bld) [#/Vol]4.03 10 6/uLLow4.20-5.40 [facility] HospitalXR femur LT 2V*on 1941CV femur LT 2V* [place] [address] XRay Report Signed Patient: Ayana Alves MR#: [id number] 484 : 1940 Acct:[id number] Age/Sex: 82 / F ADM Date: 08/21/22 [place] [facility] [place]: Type: [facility] CLI Attending Dr: Jeb Salas DO Copies to: Jeb Salas DO Ordering Provider: Jeb Salas DO Date of Service: 08/21/22 XR/XR femur LT 2V*: PAIN 2 views LEFTfemur plain film COMPARISON: None HISTORY: LEFT anterior mid back pain for one month ACUTE FINDINGS:None DEGENERATIVE CHANGE:Spurring of the hip joints. Adequate joint space. Spurring of the greater trochanter. Chondrocalcinosis of menisci. SOFT TISSUE FINDINGS:Unremarkable JOINT EFFUSION:None POSTOP CHANGES:None BONE MINERALIZATION:Adequate Calcified fibroid. XR/XR femur LT 2V* IMPRESSION: Mild LEFT hip degeneration. greater trochanter spurring. Chondrocalcinosis of menisci. Impression dictated by: Pako Sidhu M.D.08/21/2022 3:22 PM Dictation Location: [place] [address] Transcribed By: [facility] 08/21/22 1522 Dictated By: Pako Sidhu DO 08/21/22 1519 Signed By: 08/21/22 1522NoOur Lady of Mercy Hospital - AndersonXR femur LT 2V*[facility] [employer] Other XR femur LT 2V*[facility] [employer] Other XR femur LT 2V*[facility] [employer] Other XR femur LT 2V*JUDY King [address]Hfzwt [employer]Flip[employer] Other XR femur LT 2V*XRay ReportNantucket iFlipd Other XR femur LT 2V*SignedCreditEase [employer]ip[employer] Other XR femur LT 2V*Patient: Ayana Alves MR#: [id number] [place] [employer] Other XR femur LT 2V*484CreditEase [employer] Other XR femur LT 2V*: 1940 Acct:[id number] [employer] Other XR femur LT 2V*Age/Sex: 82 / F ADM Date: 08/21/22[place] [employer] Other XR femur LT 2V*[place] [facility] [place]: Type: [facility] [employer] Other XR femur LT 2V*Attending Dr: Jeb Salas ozuke Other XR femur LT 2V*Copies to: Jeb Salas ozuke Other XR femur LT 2V*Ordering Provider: Jeb Salas DO [employer] Other XR femur LT 2V*Date of Service: 08/21/22[place] [employer] Other XR femur LT 2V* XR/XR femur LT 2V*: [facility] CenterOr[facility] Leap Other XR femur LT 2V*2 views LEFTfemur plain filmNantucket iFlipd Other XR femur LT 2V*COMPARISON: [employer] Other XR femur LT 2V*HISTORY: LEFT anterior mid back pain for one monthNantucket iFlipd Other XR femur LT 2V*ACUTE FINDINGS:[facility]aleCreditEase iFlipd Other XR femur LT 2V*DEGENERATIVE CHANGE:Spurring of the hip joints. Adequate joint space. Spurring of the up health systemAdzCentral Other XR femur LT 2V*trochanter. Chondrocalcinosis of menisci.[employer] Other XR femur LT 2V*SOFT TISSUE FINDINGS:UnremarkableNantucket iFlipd Other XR femur LT 2V*JOINT EFFUSION:[employer] Other XR femur LT 2V*POSTOP CHANGES:NoneAdzCentral Other XR femur LT 2V*BONE MINERALIZATION:AdequateCreditEase iFlipd Other XR femur LT 2V*Calcified fibroid.[employer] Other XR femur LT 2V* XR/XR femur LT 2V* [employer] Other XR femur LT 2V*IMPRESSION: Mild LEFT hip degeneration. greater trochanter spurring. Chondrocalcinosis of menisci.[employer] Other XR femur LT 2V*Impression dictated by: Pako Sidhu M.D.08/21/2022 3:22 PMNStony Brook [facility] [employer] Other XR femur LT 2V*Dictation Location: [id number] [employer]ip[employer] Other XR femur LT 2V*Transcribed By: FILIBERTO 08/21/[address] [place] [address] [employer] Other XR femur LT 2V*Dictated By: Pako Sidhu DO 08/21/[address] [place] [address] [employer] Other XR femur LT 2V*Signed By:[facility] [employer] Other XR femur LT 2V*08/21/[address] [place] [address] [employer] Other XR hip LT min 2V(w/wo pelvis)*on 72-07-4254GR hip LT min 2V(w/wo pelvis)*[facility] [place] [address] [place] [address] XRay Report Signed Patient: Ayana Alves MR#: [id number] 484 : 1940 Acct:[id number] Age/Sex: 82 / F ADM Date: 08/21/22 [place] [facility] [place]: Type: [facility] Attending Dr: Jeb Salas DO Copies to: Jeb Salas DO Ordering Provider: Jeb Salas DO Date of Service: 08/21/22 XR/XR hip LT min 2V(w/wo pelvis)*: Acute pain of left hip 2 views LEFT hip single view pelvis plain film COMPARISON:None HISTORY:LEFT anterior thigh pain for months. ACUTE FINDINGS:None DEGENERATIVE CHANGE:Adequate hip joint space. Spurring of the greater trochanter. SOFT TISSUE FINDINGS:Unremarkable JOINT EFFUSION:None POSTOP CHANGES:None BONY MINERALIZATION:Adequate Degenerative calcified fibroid. Lower lumbar fixation hardware. XR/XR hip LT min 2V(w/wo pelvis)* IMPRESSION:Unremarkable LEFT hip. The greater trochanter spurring. Impression dictated by: Pako Sidhu M.D.08/21/2022 3:24 PM Dictation Location: RADIO--01 Transcribed By: FILIBERTO 08/21/22 1524 Dictated By: Pako Sidhu DO 08/21/22 1522 Signed By: 08/21/[address] [place], [place] [address]XR hip LT min 2V(w/wo pelvis)* XR/XR hip LT min 2V(w/wo pelvis)*: Acute pain of left hipNorth Kansas City HospitalGamemaster Other XR hip LT min 2V(w/wo pelvis)*2 views LEFT hip single view pelvis plain filmNoresearch medical center-[facility] iFlipd Other XR hip LT min 2V(w/wo pelvis)*HISTORY:LEFT anterior thigh pain for months.[employer] Other XR hip LT min 2V(w/wo pelvis)*DEGENERATIVE CHANGE:Adequate hip joint space. Spurring of the greater trochanter.[employer] Other XR hip LT min 2V(w/wo pelvis)*BONY MINERALIZATION:AdequateOrange Leap Other XR hip LT min 2V(w/wo pelvis)*Degenerative calcified fibroid. Lower lumbar fixation hardware.[employer] Other XR hip LT min 2V(w/wo pelvis)* XR/XR hip LT min 2V(w/wo pelvis)*[employer] Other XR hip LT min 2V(w/wo pelvis)*IMPRESSION:Unremarkable LEFT hip. The greater trochanter spurring.[employer] Other XR hip LT min 2V(w/wo pelvis)*Impression dictated by: Pako Sidhu M.D.08/21/2022 3:24 PMNcolumbia regional hospital iFlipd Other XR hip LT min 2V(w/wo pelvis)*Transcribed By: FILIBERTO 08/21/22 [facility] CenterOr[facility] Other XR hip LT min 2V(w/wo pelvis)*Dictated By: Pako Sidhu DO 08/21/22 1522NoOrange Leap Other XR hip LT min 2V(w/wo pelvis)*08/21/[address] HEAD WO CONTRASTon 76-97-9503GS HEAD WO CONTRAST EXAMINATION: CT OF THE [...] symptoms: pt stated was life flighted to [facility] from [place] Relevant Medical/Surgical History: CT done at [place] FINDINGS: BRAIN/VENTRICLES: There is a small amount of subdural hemorrhagic products adjacent to the left temporal lobe measuring 4 mm. There is no mass effect or midline shift. There is satisfactory overall mathias-white matter differentiation. The ventricular structures are symmetric. [...] Signed by: Don Rahman MD 04/24/22 Final resultNormalMerSuburban Community Hospital & Brentwood HospitalBasic Metab w/rfx MGon 04-15-2022 Anion gap [Moles/Vol]9 mmol/LNormal9-17[facility] SystemComment on above:Performed By: #### BMPX, CDP #### [employer] [address] [place], [place] [address] [employer] Teacher: PEBBLES Szymanskierformed By: #### CDP, BMPX ####[facility] [address] [place] [address] Lab Director: GI Szymanskialcium [Mass/Vol]9.6 mg/dLNormal8.6-10.4[facility] State Health SystemComment on above:Performed By: #### BMPX, CDP #### [facility] [address] [place] [address] Ship Construction Teacher: PEBBLES Szymanskierformed By: #### CDP, BMPX ####[facility] [address] [place] [address] Lab Director: Yordan Lr MDChloride [Moles/Vol]107 mmol/IVmcvqa23-435KwlpiOhio State Health SystemComment on above:Performed By: #### BMPX, CDP #### [facility] [place] [address] Ship Construction Teacher: PEBBLES Szymanskierformed By: #### CDP, BMPX ####[facility] [address] [place] [address] Lab Director: Yordan Lr MDCO2 [Moles/Vol]22 mmol/QXhonkz66-60DaejeOhio State Health System Comment on above:Performed By: #### BMPX, CDP #### [facility] [address] [place] [address] Ship [employer] Teacher: Yin Szymanskiformed By: #### CDP, BMPX ####[facility] [address] [place] [address] Lab Director: Yordan Lr MDCreatinine [Mass/Vol]0.74 mg/dLNormal0.50-0.90Ohio State Health SystemComment on above:Performed By: #### BMPX, CDP #### [facility] [address] [place] [address] [employer] Teacher: Yordan Madoff, MDPerformed By: #### CDP, BMPX ####[facility] Center[facility] InternationalDimtwuckarzk[address] [place] [id number] Lab Director: Yordan Lr MDGFR/1.73 sq M.predicted among non-blacks MDRD (S/P/Bld) [Vol rate/Area]mL/min/{1.73_m2}Normal>60[facility] CenterComment on above:Result Comment: Effective Mar 11, 2022 These results [...] or following therapy that affects renal tubular secretion.Performed By: #### BMPX, CDP #### [facility] [address] [place] [address] [employer] Teacher: PEBBLES Szymanskierformed By: #### CDP, BMPX ####[facility] [address] [place] [id number] Lab Director: Yordan Lr MDGlucose [Mass/Vol]89 mg/tWStoybe67-39Yt[address] [place] [address] Comment on above:Performed By: #### BMPX, CDP #### [facility] [address] [place] [id number] [employer] Teacher: PEBBLES Szymanskierformed By: #### CDP, BMPX ####[facility] CenterWater [facility] InternationalKilgykpbxadm[address] [place] [id number] Lab Director: PEBBLES Szymanskiotassium [Moles/Vol]4.1 mmol/LNormal3.7-5.3MGarden [facility] and Medical CenterComment on above:Performed By: #### BMPX, CDP #### [facility] Center[facility] [address] [place] [address] Ship Construction Teacher: Yordan Madoff, MDPerformed By: #### CDP, BMPX ####[facility] [address] [place] [address] Lab Director: VIKRAM Szymanskiodium [Moles/Vol]138 mmol/PPixlab639-530OmecnOhio State Health SystemComment on above:Performed By: #### BMPX, CDP #### [facility] [address] [place], [place] [phone] Ship Construction Teacher: PEBBLES Szymanskierformed By: #### CDP, BMPX ####[facility] [address] [place] [address] Lab Director: Yordan Lr MDUrea nitrogen [Mass/Vol]16 mg/dLNormal8-23Ohio State Health SystemComment on above:Performed By: #### BMPX, CDP #### [facility] [address] [place] [address] Ship Construction Teacher: PEBBLES Szymanskierformed By: #### CDP, BMPX ####[facility] [address]mpyjqk[address] [place] [address] Lab Director: Yordan Lr MDBathree rivers medical center Metabolic Panel w/ Reflex to MGon [id number] gap [Moles/Vol]9 mmol/L9 - 17 mmol/LBON SECOURS MERCY HEALTHCalcium [Mass/Vol]9.6 mg/dL8.6 - 10.4 mg/dLBON SECOURS MERCY HEALTHChloride [Moles/Vol]107 mmol/L98 - 107 mmol/LBON [facility]OURS MERCY HEALTHCO2 [Moles/Vol]22 mmol/L20 - 31 mmol/LBON [facility] MER[facility] HEALTHCreatinine [Mass/Vol]0.74 mg/dL0.50 - 0.90 mg/dLBON SECOURS MERCY HEALTHGFR/1.73 sq M.predicted MDRD (S/P/Bld) [Vol rate/Area]- PINFBON SECOURS FIMBexY HEALTHComment on above: Effective Mar 11, 2022 These [...] therapy that affects renal tubular secretion. Glucose [Mass/Vol]89 mg/dL70 - 99 mg/dLBON GEORGETOWN BEHAVIORAL HOSPITALPotassium [Moles/Vol]4.1 mmol/L3.7 - 5.3 mmol/LBON GEORGETOWN BEHAVIORAL HOSPITALSodium [Moles/Vol] 138 mmol/L135 - 144 mmol/LBON GEORGETOWN BEHAVIORAL HOSPITALUrea nitrogen (BldV) [Mass/Vol]16 mg/dL8 - 23 mg/dLBON [facility] CBC with Auto Differentialon [id number] Eos #0.14B[facility] HOSPITALAbsolute Immature GranulocyteBON GEORGETOWN BEHAVIORAL HOSPITALAbsolute Lymph #1.04 LowBON GEORGETOWN BEHAVIORAL HOSPITALAbsolute Luquillo #0.58B[facility] HOSPITALBasophils AbsoluteBON GEORGETOWN BEHAVIORAL HOSPITALBasophils/100 WBC (Bld)0 %0 - 2 %[facility] HOSPITALEosinophils/100 WBC (Bld)2 %1 - 4 %[facility] Hematocrit (Bld) [Volume fraction]37.9 %36.3 - 47.1 %[facility] Hemoglobin (Bld) [Mass/Vol]12.7 g/dL11.9 - 15.1 g/dLBON [facility] Immature granulocytes/100 WBC (Bld)0 %0[facility] HOSPITALInterpretation and review of laboratory resultsAbnormalBON GEORGETOWN BEHAVIORAL HOSPITALLymphocytes/100 WBC (Bld)18 %Low24 - 43 %[facility] HOSPITALH (RBC) [Entitic mass]29.7 pg 25.2 - 33.5 pgINOVA FAIR OAKS HOSPITALHC (RBC) [Mass/Vol]33.5 g/dL28.4 - 34.8 g/dLBON POMERENE HOSPITALV (RBC) [Entitic vol]88.6 fL82.6 - 102.9 fLSHENANDOAH MEMORIAL HOSPITALMonocytes/100 WBC (Bld)10 %3 - 12 %[facility] Snaptrip NRBC Automated0.00.0 per 100 WBCBON GEORGETOWN BEHAVIORAL HOSPITALPlatelet distribution width (Bld) [Ratio]12.6 %11.8 - 14.4 %[facility]ON [facility] HEALTHPlatelet mean volume (Bld) [Entitic vol]10.0 fL8.1 - 13.5 fLBON [facility] HEALTHPlatelets (Bld) [#/Vol]161 10*3/uLBON [facility] HEALTHRBC (Bld) [#/Vol]4.28 10*6/uL 3.95 - 5.11 m/uLBON GEORGETOWN BEHAVIORAL HOSPITALSegmented neutrophils/100 WBC (Bld)70 % High36 - 65 %[facility] HOSPITALSegs Absolute4.10[facility] WBC (Bld) [#/Vol]5.9 10*3/uLBON GEORGETOWN BEHAVIORAL HOSPITALBON GE[facility]GET[facility]HAVIORAL HOSPITALCBC with Diffon [id number]. Basophil<0.74Dezamp9.00-0.20[facility] State Health SystemComment on above:Performed By: #### BMPX, CDP #### [employer] [address] [place] [address] Ship Construction Teacher: PEBBLES Szymanskierformed By: #### CDP, BMPX ####[employer] [place] [address] Lab Director: MDAbs. NessaImm.Granulocyte<0.45Vekiwx1.00-0.30[facility] State Health SystemComment on above:Performed By: #### BMPX, CDP #### [employer] [address] [place] [address] Ship Construction Teacher: PEBBLES Szymanskierformed By: #### CDP, BMPX ####[employer] [place] [address] Lab Director: Marta Szymanski.Neutrophil (Seg)4.10 k/uLNormal1.50-8.10[facility] State Health SystemComment on above:Performed By: #### BMPX, CDP #### [facility] [address] [place] [address] Ship Construction Teacher: PEBBLES Szymanskierformed By: #### CDP, BMPX ####[facility] [address] [place] [address] [phone] Director: Yordan Lr MDBasophils/100 WBC (Bld)0 %Normal0-2MGarden Grove [facility] Comment on above:Performed By: #### BMPX, CDP #### [facility] [address] [place] [address] [employer] Construction Teacher: PEBBLES Szymanskierformed By: #### CDP, BMPX ####[facility] [address] [phone] Director: Yordan Lr MDEosinophils (Bld) [#/Vol]0.14 10*3/uLNormal0.00-0.44[facility] State Health SystemComment on above:Performed By: #### BMPX, CDP #### [facility] [address] [place] [address] Ship Construction Teacher: PEBBLES Szymanskierformed By: #### CDP, BMPX ####[facility] [address] [place] [address] [phone] Director: YESSICA Szymanskiosinophils/100 WBC (Bld)2 %Normal1-4[facility] Comment on above:Performed By: #### BMPX, CDP #### [facility] [address] [place] [address] [employer] Construction Teacher: Yin Szymanskiformed By: #### CDP, BMPX ####[facility] [address] [place] [address] [phone] Director: Yordan Lr MDErythrocyte distribution width (RBC) [Ratio]12.6 %Ugrrfp30.8-14.4[facility] State Health SystemComment on above:Performed By: #### BMPX, CDP #### [facility] [address] [place] [address] Ship Construction Teacher: PEBBLES Szymanskierformed By: #### CDP, BMPX ####[facility] [address] [place] [address] Lab Director: Yordan Lr MDHematocrit (Bld) [Volume fraction]37.9 %Dfpgxe55.3-47.1MGarden Grove Hospital and Medical CenterComment on above:Performed By: #### BMPX, CDP #### [address] [address] Ship Construction Teacher: PEBBLES Szymanskierformed By: #### CDP, BMPX ####[address] [address] Lab Director: Yordan Lr MDHemoglobin (Bld) [Mass/Vol]12.7 g/pHKctyjm83.9-15.1MGarden Grove Hospital and Medical CenterComment on above:Performed By: #### BMPX, CDP #### [address] [address] Ship Construction Teacher: PEBBLES Szymanskierformed By: #### CDP, BMPX ####[facility] [address] [place] [address] Lab Director: Yordan Lr MDImmature granulocytes/100 WBC (Bld)0 %Okjrys2ZhmffOhio State Health SystemComment on above:Performed By: #### BMPX, CDP #### [address] [address] Ship Construction Teacher: PEBBLES Szymanskierformed By: #### CDP, BMPX ####[facility] [address]oz[address] [place], [place] [phone] Director: Elvis Szymanskimphocytes (Bld) [#/Vol]1.04 10*3/uLLow1.10-3.70Ohio State Health SystemComment on above:Performed By: #### BMPX, CDP #### [facility] [address] [place] [address] Ship Construction Teacher: PEBBLES Szymanskierformed By: #### CDP, BMPX ####[facility] [address] [place] [address] [phone] Director: Poncho Szymanskihocytes/100 WBC (Bld)18 %Aui72-07ZwruxOhio State Health System Comment on above:Performed By: #### BMPX, CDP #### [facility] [address] [place] [address] Ship Construction Teacher: Yin Szymanskiformed By: #### CDP, BMPX ####[facility] [address] [place] [address] [phone] Director: KRISTA SzymanskiCH (RBC) [Entitic mass]29.7 eiOphtdc76.2-33.5Ohio State Health SystemComment on above:Performed By: #### BMPX, CDP #### [facility] [address] [place] [address] Ship Construction Teacher: PEBBLES Szymanskierformed By: #### CDP, BMPX ####[facility] [address] [place] [address] [phone] Director: KRISTA SzymanskiCHC (RBC) [Mass/Vol]33.5 g/jUPdfyoh55.4-34.8[facility] State Health SystemComment on above:Performed By: #### BMPX, CDP #### [facility] [address] [place] [address] Ship Construction Teacher: PEBBLES Szymanskierformed By: #### CDP, BMPX ####[facility] [address] [place] [address] Lab Director: KRISTA SzymanskiCV (RBC) [Entitic vol]88.6 vTJbdowd86.6-102.9[facility] State Health SystemComment on above:Performed By: #### BMPX, CDP #### [facility] [address] [place] [address] Ship Construction Teacher: PEBBLES Szymanskierformed By: #### CDP, BMPX ####[facility] [address] [place] [address] Lab Director: KRISTA Szymanskionocytes (Bld) [#/Vol]0.58 10*3/uLNormal0.10-1.20[facility] State Health SystemComment on above:Performed By: #### BMPX, CDP #### [facility] [address] [place] [address] Ship Construction Teacher: PEBBLES Szymanskierformed By: #### CDP, BMPX ####[facility] [address] [place] [address] Lab Director: KRISTA Szymanskionocytes/100 WBC (Bld)10 %Normal3-12[facility] Comment on above:Performed By: #### BMPX, CDP #### [facility] [address] [place] [address] Ship Construction Teacher: PEBBLES Szymanskierformed By: #### CDP, BMPX ####[facility] [address] [place] [address] Lab Director: Yordan Lr MDNeutrophil (Seg)70 %Pfxl13-13SvmkbOhio State Health SystemComment on above:Performed By: #### BMPX, CDP #### [facility] [address] [place] [address] Ship Construction Teacher: PEBBLES Szymanskierformed By: #### CDP, BMPX ####[facility] [address] [place] [address] [phone] Director: DARY Szymanski Automated0.0 per 100 WBCNormal0.0[facility] Comment on above:Performed By: #### BMPX, CDP #### [facility] [address] [place] [address] Ship Construction Teacher: PEBBLES Szymanskierformed By: #### CDP, BMPX ####[facility] [address] [place] [address] [phone] Director: Anum Szymanski mean volume (Bld) [Entitic vol]10.0 fLNormal8.1-13.5[facility] State Health SystemComment on above:Performed By: #### BMPX, CDP #### [facility] [address] [place] [address] Ship Construction Teacher: Yin Szymanskiformed By: #### CDP, BMPX ####[facility] [address] [place] [address] Lab Director: Cheryl Szymanskitelets (Bld) [#/Vol]161 10*3/yYEmpqnz769-180TnxznOhio State Health SystemComment on above:Performed By: #### BMPX, CDP #### [facility] [address] [place] [address] Ship Construction Teacher: Yin Szymanskiformed By: #### CDP, BMPX ####[facility] [address] [place] [address] Lab Director: ADITHYA SzymanskiBC (Bld) [#/Vol]4.28 10*6/uLNormal3.95-5.11[facility] State Health SystemComment on above:Performed By: #### BMPX, CDP #### [facility] [address] [place] [address] Ship Construction Teacher: PEBBLES Szymanskierformed By: #### CDP, BMPX ####[address] [address] Lab Director: YONG Szymanski (d) [#/Vol]5.9 10*3/uLNormal3.5-11.3[facility] CenterComment on above:Performed By: #### BMPX, CDP #### [address] [address] Ship Construction Teacher: PEBBLES Szymanskierformed By: #### CDP, BMPX ####[address] [address] Lab Director: LUKE Szymanskirug Scr, Abuse, Uron [id number](s),UrNegativeNormalNEG [facility] State Health SystemComment on above:Result Comment: (Positive cutoff 1000 ng/mL)Performed By: #### UAX, RAMA #### [address] [address] Ship Construction Teacher: Yordan Lr MDBarbiturate(s),UrNegativeNormalNEGOhio State Health SystemComment on above:Result Comment: (Positive cutoff 200 ng/mL)Performed By: #### UAX, RAMA #### [facility] [employer] [address] [place] [address] Ship Construction Teacher: Yordan Lr MDBenzodiazepine(s)NegativeNormalNEGOhio State Health SystemComment on above:Result Comment: (Positive cutoff 200 ng/mL)Performed By: #### UAX, RAMA #### [facility] [employer] [address] [place] [address] Ship Construction Teacher: GI Szymanskiannabinoid(s),UrNegativeNormalNEGMercy Memorial Medical CenterComment on above:Result Comment: (Positive cutoff 50 ng/mL)Performed By: #### UAX, RAMA #### [facility] [address] [place] [address] Ship Construction Teacher: GI Szymanskiocaine MetaboliteNegativeNormalNEGMercy Memorial Medical CenterComment on above:Result Comment: (Positive cutoff 300 ng/mL)Performed By: #### UAX, RAMA #### [facility] [address] [place] [address] Ship Construction Teacher: Yordan Lr MDFentanyl, UrineNegativeNormalNEGOhio State Health SystemComment on above:Result Comment: (Positive cutoff 5 ng/ml)Performed By: #### UAX, RAMA #### [facility] [address] [address] Ship Construction Teacher: Yordan Lr MDInterpretive InfoAssay provides medical screening only. The absence of expected drug(s) and/orNormalMercy Memorial Medical CenterComment on above:Result Comment: metabolite(s) may indicate diluted or adulterated urine, limitations of testing or timing of collection. Testing for legal purposes should be confirmed by another method. To request confirmation of test result, please call the lab within 7 days of sample submission.Performed By: #### UAX, RAMA #### [facility] [address] [place] [address] Ship Construction Teacher: KRISTA Szymanskiethadone Ql (U)NegativeNormalNEGMerKindred HospitalComment on above:Result Comment: (Positive cutoff 300 ng/mL)Performed By: #### UAX, RAMA #### [facility] [employer] [address] [place] [address] Ship Construction Teacher: Yordan Lr MDOpiate(s), UrNegativeNormalNEGMercy Memorial Medical CenterComment on above:Result Comment: (Positive cutoff 300 ng/mL)Performed By: #### UAX, RAMA #### [facility] [address] Ship Construction Teacher: Yordan Lr MDOxycodone, UrineNegativePremier Health Miami Valley HospitalComment on above:Result Comment: (Positive cutoff 100 ng/mL)Performed By: #### UAX, RAMA #### [address] [address] Ship Construction Teacher: Evelina Szymanskicyclidine, UrNegativePremier Health Miami Valley HospitalComment on above:Result Comment: (Positive cutoff 25 ng/mL)Performed By: #### UAX, RAMA #### [address] [address] Ship Construction Teacher: Yordan Lr MDHemoglobin A1Con 94-61-9910Tmacyct [Mass/Vol]120 mg/dLClinton Memorial HospitalComment on above:Result Comment: The ADA and AACC recommend providing the estimated average glucose result to permit better patient understanding of their HBA1c result.Performed By: #### FT4, TSH, VD25, B12, ERTPF, GLYHGB, ALB ####[address] [address] Lab Director: PEBBLES Szymanskierformed By: #### GLYHGB, ALB, ERTPF, B12, FT4, TSH, VD25 ####[facility] [address] [place] [address] Lab Director: Yordan Lr MDHbA1c (Bld) [Mass fraction]5.8 %Normal4.0-6.0[facility] State Health SystemComment on above:Performed By: #### FT4, TSH, VD25, B12, ERTPF, GLYHGB, ALB ####[facility] [address] Lab Director: PEBBLES Szymanskierformed By: #### GLYHGB, ALB, ERTPF, B12, FT4, TSH, VD25 ####[facility] [address] [place] [address] Lab Director: Yordan Lr MDGlucose [Mass/Vol]120 mg/dLBON GEORGETOWN BEHAVIORAL HOSPITALComment on above: The ADA and AACC recommend providing the estimated average glucose result to permit better patient understanding of their HBA1c result. HbA1c (Bld) [Mass fraction]5.8 %4.0 - 6.0 %[facility] w/Reflex Cultureon [id number], SemiQt,UrNegativeNormal NEGOhio State Health SystemComment on above:Performed By: #### UAX, RAMA #### [employer] [address] [place] [address] Ship Construction Teacher: Deena Szymanski, UrineNegativeNormalNEGOhio State Health SystemComment on above:Performed By: #### UAX, RAMA #### [facility] [employer] [address] [place] [address] Ship Construction Teacher: Lizbeth Szymanskirity (U)ClearNormalCLEAROhio State Health SystemComment on above:Performed By: #### UAX, RAMA #### [facility] [employer] [address] [place] [address] Ship Construction Teacher: GI Szymanskiolor (U)YellowNormalYMercer County Community HospitalComment on above:Performed By: #### UAX, RAMA #### [employer] [address] [place] [address] Ship Construction Teacher: GI SzymanskiomsherlyMicroscopic exam not performed based on chemical results unless requested [facility] Comment on above:Result Comment: original order.Performed By: #### UAX, RAMA #### [facility] [employer] [address] [place] [address] Ship Construction Teacher: Yordan Lr MDGlucose Ql (U)NegativeNormalNEGOhio State Health SystemComment on above:Performed By: #### UAX, RAMA #### [facility] [address] [address] Ship Construction Teacher: Yordan Lr MDKetones Ql (U)TRACEAbnormalNEGOhio State Health SystemComment on above:Performed By: #### UAX, RAMA #### [address] [address] Ship Construction Teacher: Yordan Lr MDLeukocyte esterase Test strip Ql (U)Negative NormalNEGOhio State Health SystemComment on above:Performed By: #### UAX, RAMA #### [address] [address] Ship Construction Teacher: Jesi Szymanskitrite,UrNegativeNormProMedica Memorial HospitalComment on above:Performed By: #### UAX, RAMA #### [address] [address] Ship Construction Teacher: Yordan Lr [facility],Ur6.1Ovkcga7.0-8.0[facility] State Health SystemComment on above:Performed By: #### UAX, RAMA #### [address] [address] Ship Construction Teacher: PEBBLES Szymanskirotein Ql (U)NegativeNormalNEGOhio State Health SystemComment on above:Performed By: #### UAX, RAMA #### [address] [address] Ship Construction Teacher: VIKRAM Szymanskipec. Sheldahl,Ur1.876Jkgk5.005-1.030[facility] State Health SystemComment on above:Performed By: #### UAX, RAMA #### [facility] [address] [place], [place] [phone] Ship Construction Teacher: Derick SzymanskiUrNormalNormalNORMMercy Memorial Medical CenterComment on above:Performed By: #### UAX, RAMA #### [address] [phone] Ship Construction Teacher: Yordan Lr MDAlbuminon 86-63-0524Ieorogp [Mass/Vol]4.1 g/dL Normal3.5-5.2[facility] Medical CenterComment on above:Performed By: #### FT4, TSH, VD25, B12, ERTPF, GLYHGB, ALB #### [address] [phone] Ship Construction Teacher: PEBBLES Szymanskierformed By: #### GLYHGB, ALB, ERTPF, B12, FT4, TSH, VD25 #### [address] [phone] Ship Construction Teacher: Yordan Lr MDAlbumin [Mass/Vol]4.1 g/dL3.5 - 5.2 g/dLBON SECBETH[facility] AUTO DIFFon [id number] #0.0 103/ulNormal0.0-0.1The [facility] Medical CenterComment on above:Performed By: #### CBC #### [facility] [address] [place] [address] Dr. Brii Duranphils/100 WBC (Bld)0.4 %Normal0.2-2.0[facility] Comment on above:Performed By: #### CBC #### [facility] [address] [place] [address] Dr. Brii Das #0.2 103/ulNormal0.0-0.7The [facility] Medical CenterComment on above: Performed By: #### CBC #### [facility] [address] [place] [address] Dr. Brii Johnsonosinophils/100 WBC (Bld)2.0 %Normal0.9-7.0[facility] Comment on above:Performed By: #### CBC #### [facility] [address] [place] [address] Dr. Brii HumphriesHematocrit (Bld) [Volume fraction]40.1 %Ibvqmt34.0-48.0The [facility] Medical CenterComment on above:Performed By: #### CBC #### [facility] [address] [place] [address] Dr. Brii HumphriesHemoglobin (Bld) [Mass/Vol]13.1 g/wAMjjkht61.0-16.0The [facility] Medical CenterComment on above:Performed By: #### CBC #### [facility] [address] [place] [address] Dr. Brii HumphriesIG #0.02 10e3/ulNormal0.00-0.03The [facility] Medical CenterComment on above:Performed By: #### CBC #### [facility] [address] [place] [address] Dr. Brii Caballero %0.3 %Normal0.0-0.5The [facility] Medical CenterComment on above: Performed By: #### CBC #### [facility] [address] [place] [address] Dr. Brii SullivanH #1.1 103/ulCritically low1.2-3.8The [facility] Comment on above:Performed By: #### CBC #### [facility] [address] [place] [address] Dr. Brii Billingsmphocytes/100 WBC (Bld)15.0 %Critically low20.5-60.0The [facility] Medical CenterComment on above:Performed By: #### CBC #### [facility] [address] [place] [address] Dr. Brii GarzonUAL DIFF REQNONormalThe [facility] Medical CenterComment on above: Performed By: #### CBC #### [facility] [address] [place] [address] Dr. Brii Cagle (RBC) [Entitic mass]28.8 fqYactjq87.7-34.0The [facility] Medical CenterComment on above:Performed By: #### CBC #### [facility] [address] [place] [address] Dr. Brii Cagle (RBC) [Mass/Vol]32.7 g/aBHbudgg53.9-35.2The [facility] Medical CenterComment on above:Performed By: #### CBC #### [facility] [address] [place] [address] Dr. Brii Cagle (RBC) [Entitic vol]88.1 fOIwpuqt58.0-99.0The [facility] Medical CenterComment on above:Performed By: #### CBC #### [facility] [address] [place] [address] Dr. Brii Osborne #0.5 103/ulNormal0.3-0.8The [facility] Medical CenterComment on above:Performed By: #### CBC #### [facility] [address] [place] [address] Dr. Brii Grimesocytes/100 WBC (Bld)6.6 %Normal1.7-12.0The [facility] Comment on above:Performed By: #### CBC #### [facility] [address] [place] [address] Dr. Brii Gupta #5.6 103/ulNormal1.4-6.5The [facility] Medical CenterComment on above:Performed By: #### CBC #### [facility] [address] [place] [address] Dr. Brii Mckayutrophils/100 WBC (Bld)75.7 %Critically high43.0-75.0The [facility] Medical CenterComment on above:Performed By: #### CBC #### [facility] [address] [place] [address] Dr. Brii Mckeonlet mean volume (Bld) [Entitic vol]9.7 fLNormal9.5-13.5The [facility] Medical CenterComment on above:Performed By: #### CBC #### [facility] [address] [address] [address] Brii HumphriesPLT174 103/pgXoweqm213-481Qke [facility] Medical CenterComment on above: Performed By: #### CBC #### [facility] [address] [place] [address] Dr. Brii HumphriesRBC4.55 106/ulNormal4.20-5.40The [facility] Medical CenterComment on above:Performed By: #### CBC #### [facility] [address] [address] [address] Brii HumphriesWBC7.4 103/ulNormal4.0-11.0The [facility] CenterComeaton rapids medical [facility] on above: Performed By: #### CBC #### [facility] [address] [place] [address] Dr. Brii HumphriesCT CHEST ABDOMEN PELVIS W CONTRASTon [id number] CHEST ABDOMEN PELVIS W CONTRASTEXAMINATION: CT OF THE CHEST, ABDOMEN, AND PELVIS [...] calcified fibroids. No lymphadenopathy or free fluid. Peritoneum/Retroperitoneum: No ascites, free intraperitoneal air, or ascites. [...] Signed by: Jesusita Quintanilla MD 04/14/22 Final resultNormalMerKindred HospitalCT [facility]on [facility]2022 [facility] CONEXAMINATION: [facility] CON, 04/14/2022 12:47 PM PST HISTORY: Closed [...] Electronically authenticated by: SHAHZAD TOMAS Date: 2022-04-14 16:45[facility] DaytonCT F[facility]IAL [facility] WO CONon [id number] FACIAL BONES WO CONCT MAXILLOFACIAL WITHOUT CONTRAST. CLINICAL HISTORY: Pain in [...] Electronically authenticated by: FELIPA HOPPER Date: 2022-04-14 16:48NoCincinnati [facility] Medical Center HEAD WO CONon [id number] HEAD WO CONCT HEAD WITHOUT CONTRAST. INDICATION: Closed head injury. [...] Electronically authenticated by: FELIPA HOPPER Date: 2022-04-14 16:43[facility]CT [facility] CONTRASTon [id number] HEAD WO CONTRASTEXAMINATION: CT OF THE HEAD WITHOUT CONTRAST 04/14/2022 [...] appear normal. There is no loss of mathias-white differentiation. The ventricles and cisterns are normally [...] Signed by: Jayant Rodrigues MD 04/14/22 Final resultNormalMerKindred HospitalAcute left subdural hematoma overlying the parietooccipital lobes measuring up to 4 mm in thickness with no significant associated mass effect. Critical results were called by Dr. Jayant Martínez to Dr. Cain on 04/14/2022 at 8:16 p.m.. [facility] CONSOLIDATEDEXAMINATION: CT OF THE HEAD WITHOUT CONTRAST 04/14/2022 [...] appear normal. There is no loss of mathias-white differentiation. The ventricles and cisterns are normally patent. ORBITS: The visualized portion of the orbits demonstrate no acute abnormality. SINUSES: The visualized paranasal sinuses and mastoid air cells demonstrate no acute abnormality. SOFT TISSUES/SKULL: No acute abnormality of the visualized skull or soft tissues. [facility] Jayant Maldonado MD - 04/14/2022 EXAMINATION: CT OF THE [...] appear normal. There is no loss of mathias-white differentiation. The ventricles and cisterns are normally [...] Dr. Cain on 04/14/2022 at 8:16 p.m.. [employer] Phone: radiology Study observation (narrative)O[employer] Phone: cT HEAD WO CONTRASTOrdered By: Jayant Rodrigues on [id number] [employer] Work Phone: ct LUMBAR SPINE TRAUMA RECONSTRUCTIONon [id number] LUMBAR SPINE TRAUMA RECONSTRUCTIONEXAMINATION: CT OF THE CHEST, ABDOMEN, AND PELVIS [...] calcified fibroids. No lymphadenopathy or free fluid. Peritoneum/Retroperitoneum: No ascites, free intraperitoneal air, or ascites. [...] Signed by: Jesusita Quintanilla MD 04/14/22 Final resultNormalMercy Memorial Medical CenterCT THORACIC SPINE TRAUMA RECONSTRUCTIONon [id number] THORACIC SPINE TRAUMA RECONSTRUCTIONEXAMINATION: CT OF THE CHEST, ABDOMEN, AND PELVIS [...] calcified fibroids. No lymphadenopathy or free fluid. Peritoneum/Retroperitoneum: No ascites, free intraperitoneal air, or ascites. [...] Signed by: Jesusita Quintanilla MD 04/14/22 Final resultNormalMercy Memorial Medical CenterCovid-19 PCR (CVDTBH)on [id number]-CoV-2 (COVID-19) RNA LI+probe Ql (Unsp spec)Not detectedNormal NOT DETECTEDThe [facility] Va Medical CenterComment on above:Result Comment: When diagnostic testing is negative, the possibility of a false negative should be c onsidered in the context of a patient's recent [...] for this test is supported by the [place] of Health and Human Service's declaration that circumstances exist to justify the emergency use of in vitro diagnostics for the detection and/or diagnosis of the virus that causes COVID-19. This EUA will remain in effect for the duration of the COVID-19 declaration justifying emergency of IVDs, unless it is terminated or revoked by the FDA (after which the test may no longer be used).Performed By: #### CVDTBH #### [facility] [address] [place] [address] Dr. Brii HumphriesDRUG SCREEN MULTI URINEon [id number] Screen, Ur NegativeNEGATIVEBON SECOURS MERCY HEALTHComment on above: (Positive cutoff 1000 ng/mL) Barbiturate Screen, UrNegativeNEGATIVEBON SECOURS MERCY HEALTHComment on above: (Positive cutoff 200 ng/mL) Benzodiazepine Screen, UrineNegativeNEGATIVEBON SECOURS MERCY HEALTHComment on above: (Positive cutoff 200 ng/mL) Cannabinoid Scrn, UrNegativeNEGATIVEBON SECOURS MERCY HEALTHComment on above: (Positive cutoff 50 ng/mL) Cocaine Metabolite, UrineNegativeNEGATIVEBON SECOURS MERCY HEALTHComment on above: (Positive cutoff 300 ng/mL) Fentanyl, UrNegativeNEGATIVEBON SECOURS MERCY HEALTHComment on above: (Positive cutoff 5 ng/ml) Methadone Screen, UrineNegativeNEGATIVEBON SECOURS MERCY HEALTHComment on above: (Positive cutoff 300 ng/mL) Opiates, UrineNegativeNEGATIVEBON SECOURS MERCY HEALTHComment on above: (Positive cutoff 300 ng/mL) Oxycodone Screen, UrNegativeNEGATIVEBON SECOURS MERCY HEALTHComment on above: (Positive cutoff 100 ng/mL) Phencyclidine, UrineNegativeNEGATIVEBON SECOURS MERCY HEALTHComment on above: (Positive cutoff 25 ng/mL) Test InformationAssay provides medical screening only. The absence of expected drug(s) and/or metabolite(s) may indicate diluted or adulterated urine, limitations of testing or timing of collection.[facility] MERCY HEALTHComment on above:Testing for legal purposes should be confirmed by another method. To request confirmation of test result, please call the lab within 7 days of sample submission. [facility] Panel Informationon . No acute findings within the chest, abdomen common pelvis or within the thoracolumbar spine. 2. Multiple liver lesions measuring up to 8 cm are likely hemangiomas. 3. Calcified uterine fibroids. [facility] CONSOLIDATEDEXAMINATION: CT OF THE CHEST, ABDOMEN, AND PELVIS [...] calcified fibroids. No lymphadenopathy or free fluid. Peritoneum/Retroperitoneum: No ascites, free intraperitoneal air, or ascites. [...] upper lumbar spine. [facility] Jesusita Burton MD - 04/14/2022 EXAMINATION: CT OF THE [...] calcified fibroids. No lymphadenopathy or free fluid. Peritoneum/Retroperitoneum: No ascites, free intraperitoneal air, or ascites. [...] are likely hemangiomas. 3. Calcified uterine fibroids. [employer] Phone: bon [facility] [employer] Radiology Study observation (narrative)[employer] Phone: No Panel InformationOrdered By: Jesusita Quintanilla on [id number] Hotel[employer] Phone: PROF CHEM 8 (BAS METB)on [id number] [Moles/Vol]4.1 mmol/LNormal3.5-5.1BON GEORGETOWN BEHAVIORAL HOSPITALComment on above: Performed By: #### BMP #### [facility] [address] [address] [address] Brii HumphriesAnion gap [Moles/Vol]7.5 mmol/LNormalThe [place] Va Medical CenterComment on above:Performed By: #### BMP #### [facility] [address] [address] [address] Brii HumphriesCalcium [Mass/Vol]10.6 mg/dLCritically high8.5-10.1The [place] [facility] Medical CenterComment on above:Performed By: #### BMP #### [facility] [address] [place] [address] Dr. Brii HumphriesChloride [Moles/Vol]106 mmol/PJmezon41-821Khx [facility] Comment on above:Performed By: #### BMP #### [facility] [address] [place] [address] Dr. Brii HumphriesCO2 [Moles/Vol]28.6 mmol/TGscqze70.0-32.0The [facility] Comment on above:Performed By: #### BMP #### [facility] [address] [place] [address] Dr. Brii HumphriesCreatinine [Mass/Vol]0.90 mg/dLNormal0.55-1.02The [place] [facility] Medical CenterComment on above:Performed By: #### BMP #### [facility] [address] [place] [address] Dr. Brii JohnsonGFR-AF MARTINIQUAIS>60Normal>=60The [place] [facility] Medical CenterComment on above:Performed By: #### BMP #### [facility] [address] [place] [address] Dr. Brii JohnsonGFR-NON AF MARTINIQUAIS=60Normal>=60The [facility] Medical CenterComment on above:Performed By: #### BMP #### [facility] [address] [place] [address] Dr. Brii HumphriesGlucose [Mass/Vol]106 mg/nJErfwip48-421Aec [facility] Comment on above:Performed By: #### BMP #### [facility] [address] [place] [address] Dr. Brii HumphriesSodium [Moles/Vol]138 mmol/KDthlca850-743KfcAultman Orrville Hospital Comment on above:Performed By: #### BMP #### [facility] [address] [place] [address] Dr. Brii Butterfield nitrogen [Mass/Vol]22.0 mg/dLCritically high7.0-18.0The [facility] Medical CenterComment on above:Performed By: #### BMP #### [facility] [address] [place] [address] Dr. Brii Butterfield nitrogen/Creatinine [Mass ratio]24.4 mg/mgNoCleveland Clinic Medina HospitalComment on above:Performed By: #### BMP #### [facility] [address] [place] [address] Dr. Brii HumphriesPROTIMEchloé [id number] Coag (PPP) [Time]10.9 sNormal9.0-11.6BON GEORGETOWN BEHAVIORAL HOSPITALComment on above:Performed By: #### PTT, PT #### [facility] [address] [place] [address] Dr. Brii Boyle Coag (PPP) [Relative time]1.01 {INR}NormalThe [facility] Va Medical CenterComment on above:Performed By: #### PTT, PT #### [facility] [address] [place] [address] Dr. Brii Boyle GUIDELINESSEE [facility] Cleveland Medical CenterComment on above:Result Comment: DESIRED INR: 2.0 - 3.0 CONDITIONS NOT LISTED BELOW 2.5 - 3.5 FOR PROSTHETIC HEART VALVE REPLACEMENT 2.5 - 3.5 RECURRENT THROMBOSIS Performed By: #### PTT, PT #### [facility] [address] [place] [address] Dr. Brii Mcgowan [id number] Coag (Bld) [Time]29.1 cAzszck93.3-36.2The [place] [facility] Medical CenterComment on above:Performed By: #### PTT, PT #### [facility] [address] [place], [place] [address] Dr. Brii Bernabe4, Freeon [id number], Free1.18 ng/dL0.93 - 1.70 ng/dL [facility]ORIAL HOSPITALTROPONIN, HIGH SENSITIVITYon 11-15-4612TQWFGN89.5 pg/mL Normal4.0-51.3The [facility] Medical CenterComment on above:Result Comment: CUT-OFF POINTS HAVE BEEN ESTABLISHED BASED ON THE FOURTH UNIVERSAL DEFINITIONS OF MY OCARDIAL INFARCTION. THE UPPER REFERENCE LIMIT (URL) OF TROPONIN, DEFINED THE 99TH PERCENTILE OF cTnI DISTRIBUTION IN A REFERENCE POPULATION, HAS BEEN CONFIRMED THE DECISION THRESHOLD FOR [place] DIAGNOSIS.Performed By: #### HSTROPN ####[facility] [address] [place], [place] [address]OeDr. Brii Leon [id number] Qn3.10 m[IU]/LBON [facility] SnaptripTYPE AND SCREENon [id number]/RhPositiveBON GEORGETOWN BEHAVIORAL HOSPITALArm Band NumberBE [id number] [facility]GET[facility] BEHAVIORAL HOSPITALExpiration Date04/17/2022,[address]59B[address] BENEDICT HEALTH CENTERThyroid Stim. Horm.on 24-79-9151Xyurxnz Stim. Horm.3.10 uIU/mLNormal0.30-5.00[place] State Health SystemComment on above:Performed By: #### FT4, TSH, VD25, B12, ERTPF, GLYHGB, ALB ####[facility] [address] [place], [place] [address] Lab Director: PEBBLES Szymanskierformed By: #### GLYHGB, ALB, ERTPF, B12, FT4, TSH, VD25 #### [facility] [address] [place], [place] [address] [employer] Teacher: Yordan Lr MDThyroxine, Freechloé 59-47-7619Ycniztuof, Free1.18 ng/dLNormal0.93-1.70[facility] Memorial Medical CenterComment on above:Performed By: #### FT4, TSH, VD25, B12, ERTPF, GLYHGB, ALB ####[facility] [address] [place] [address] Lab Director: PEBBLES Szymanksierformed By: #### GLYHGB, ALB, ERTPF, B12, FT4, TSH, VD25 #### [facility] [address] [place], [place] [address] [employer] Teacher: Yordan Lr MDTraumrichard Panelon 11-95-1889Cloyo gap [Moles/Vol]13 mmol/L9 - 17 mmol/LBON SIERRA TUCSONCivolution MAGRUDER HOSPITALaPTT Coag (Bld) [Time]24.8 sBON SIERRA TUCSONCivolution MAGRUDER HOSPITALComment on above: IV Heparin Therapy Range: 48.6-77.8 Blood Bank SpecimenBILL FOR SERVICES PERFORMEDVALLEYWISE HEALTH MEDICAL CENTER [facility] Carboxyhemoglobin5.6 %High0 - 5 %[facility]ILIT[facility] HOSPITAL FOR CHILDRENCivolution MAGRUDER HOSPITALComment on above: Reference Range: Non-Smokers 0-2% Average Smoker 2-4% Heavy Smoker <10% Chloride [Moles/Vol]103 mmol/L98 - 107 mmol/LBON SIERRA TUCSONCivolution MAGRUDER HOSPITALCO2 [Moles/Vol]17 mmol/LLow20 - 31 mmol/LBON SIERRA TUCSONCivolution MAGRUDER HOSPITALCreatinine [Mass/Vol]0.71 mg/dL0.50 - 0.90 mg/dLBON SIERRA TUCSONCivolution MAGRUDER HOSPITALEthanol [Mass/Vol] mg/dLNINF - 10 mg/dLBON SIERRA TUCSONCivolution MAGRUDER HOSPITALEthanol percent<0.010NINF - 0.010 % [facility]IL[facility] HOSPITAL FOR CHILDRENCivolution [id number] NOT PROVIDEDVALLEYWISE HEALTH MEDICAL CENTER [employer] GFR/1.73 sq M.predicted MDRD (S/P/Bld) [Vol rate/Area]- PINFBON SIERRA TUCSONAfterShipSELECT MEDICAL TRIHEALTH REHABILITATION HOSPITALComeaton rapids medical center on above: Effective Mar 11, 2022 These [...] therapy that affects renal tubular secretion. Glucose [Mass/Vol]104 mg/dWHphr27 - 99 mg/dLBON GEORGETOWN BEHAVIORAL HOSPITALhCG Qual NegativeNEGATIVEMountain View Regional Medical Center on above:Specimens with hCG levels near the threshold of the test (25 mIU/mL) may give a negative or indeterminate result. In such cases, another test should be performed with a new specimen in 48-72 hours. If early is suspected clinically in this setting, correlation with quantitative serum b-hCG level is suggested. [employer] has confirmed the use of plasma for this test. This has not been cleared or approved by the U.S. Food and Drug Administration. The FDA has determined that such clearance is not necessary. HCO3 (Bld) [Moles/Vol]20.1 mmol/LLow24 - 30 mmol/LBON [facility]GET[facility]AVIORAL HOSPITAL Hematocrit (Bld) [Volume fraction]40.9 %36.3 - 47.1 %[facility] Hemoglobin (Bld) [Mass/Vol]13.6 g/dL11.9 - 15.1 g/dLBON GEORGETOWN BEHAVIORAL HOSPITALINR Coag (Bld) [Relative time]1.0 {INR}[facility] on above: Therapeutic Range: Moderate Anticoagulant Intensity: INR = 2.0-3.0 High Anticoagulant Intensity: INR = 2.5-3.5 Interpretation and review of laboratory resultsAbnormalSHENANDOAH [facility]ORIAL [facility]OSPITAL MCH (RBC) [Entitic mass]29.6 pg25.2 - 33.5 pgSHENANDOAH MEMORIAL HOSPITALMCHC (RBC) [Mass/Vol]33.3 g/dL28.4 - 34.8 g/dLBON POMERENE HOSPITALV (RBC) [Entitic vol]89.1 fL82.6 - 102.9 fLSHENANDOAH MEMORIAL HOSPITALNegative Base Excess, Ven1.3 mmol/L0.0 - 2.0 mmol/LBON GEORGETOWN BEHAVIORAL HOSPITALNRBC Automated0.00.0 per 100 WBC [facility]OR[facility] HOSPITALOxygen saturation in Blood97.0 %High60.0 - 85.0 %BON SECOU[facility] MERCY HEALTHpCO2, Ven26.1LowBON SECTERRI BERGER HOSPITALY HEALTHpH, Ven7.499High 7.320 - 7.420BON SECNORTHWEST RURAL HEALTH NETWORKY HEALTHPlatelet distribution width (Bld) [Ratio] 12.5 %11.8 - 14.4 %BON SECTERRI BERGER HOSPITALY HEALTHPlatelet mean volume (Bld) [Entitic vol]9.8 fL8.1 - 13.5 fLBON SECTERRI BERGER HOSPITALY HEALTHPlatelets (Bld) [#/Vol]162 10*3/uLBON SECOURS BERGER HOSPITALY HEALTHpO2, Ven74.5HighBON SECNORTHWEST RURAL HEALTH NETWORKY HEALTHPt Temp 37.0BON SECNORTHWEST RURAL HEALTH NETWORKY HEALTHRBC (Bld) [#/Vol]4.59 10*6/uL3.95 - 5.11 m/uLBON SECTERRI [facility] HEALTHSodium [Moles/Vol]133 mmol/KXfb598 - 144 mmol/LBON [facility] HEALTHUrea nitrogen (BldV) [Mass/Vol]19 mg/dL8 - 23 mg/dLBON SECLALLIE [facility] HEALTHWBC (Bld) [#/Vol]7.8 10*3/uLBON [facility] HEALTHTrauma Profileon 04-36-5402Nhosb gap [Moles/Vol]13 mmol/LNormal9-17[place] State Health SystemComment on above:Performed By: #### FT4, TSH, VD25, B12, ERTPF, GLYHGB, ALB ####[facility] [address] [place] [address] Lab Director: PEBBLES Szymanskierformed By: #### GLYHGB, ALB, ERTPF, B12, FT4, TSH, VD25 #### [facility] [address] [place] [address] Ship [employer] Teacher: Abelardo Szymanski [Moles/Vol]103 mmol/IJlbvxl78-537JpjajOhio State Health SystemComment on above:Performed By: #### FT4, TSH, VD25, B12, ERTPF, GLYHGB, ALB ####[facility] [address] [place] [address] Lab Director: Yin Szymanskiformed By: #### GLYHGB, ALB, ERTPF, B12, FT4, TSH, VD25 #### [place] [address] Ship [employer] Teacher: GI SzymanskiO2 [Moles/Vol]17 mmol/EUqa14-00TnddgOhio State Health SystemComment on above:Performed By: #### FT4, TSH, VD25, B12, ERTPF, GLYHGB, ALB ####[place] [address] Lab Director: Yin Szymanskiformed By: #### GLYHGB, ALB, ERTPF, B12, FT4, TSH, VD25 #### [place] [address] Ship [employer] Teacher: GI Szymanskireatinine [Mass/Vol]0.71 mg/dLNormal0.50-0.90 [place] [facility] Health SystemComment on above:Performed By: #### FT4, TSH, VD25, B12, ERTPF, GLYHGB, ALB ####[place] [address] Lab Director: Yin Szymanskiformed By: #### GLYHGB, ALB, ERTPF, B12, FT4, TSH, VD25 #### [place] [address] [employer] Teacher: Yordan Lr MDEthanol [Mass/Vol]mg/dLNormal<10[place] [facility] Health SystemComment on above:Performed By: #### FT4, TSH, VD25, B12, ERTPF, GLYHGB, ALB ####[address] [address] Lab Director: Yin Szymanskiformed By: #### GLYHGB, ALB, ERTPF, B12, FT4, TSH, VD25 #### [address] [address] Ship [employer] Teacher: Yordan Lr MDEthanol percent<0.010Normal<0.010[place] State Health SystemComment on above:Performed By: #### FT4, TSH, VD25, B12, ERTPF, GLYHGB, ALB ####[address] [address] Lab Director: PEBBLES Szymanskierformed By: #### GLYHGB, ALB, ERTPF, B12, FT4, TSH, VD25 #### [address] [address] Ship Construction Teacher: Yordan Lr MDGFR/1.73 sq M.predicted among non-blacks MDRD (S/P/Bld) [Vol rate/Area]mL/min/{1.73_m2}Normal>60[place] State Health SystemComment on above:Result Comment: Effective Mar 11, 2022 These results [...] or following therapy that affects renal tubular secretion.Performed By: #### FT4, TSH, VD25, B12, ERTPF, GLYHGB, ALB ####[address] [id number] Lab Director: PEBBLES Szymanskierformed By: #### GLYHGB, ALB, ERTPF, B12, FT4, TSH, VD25 #### [address] [address] Ship Construction Teacher: Yordan Lr MDGlucose [Mass/Vol]104 mg/cBIyig78-33GxcgeGarden Grove Hospital and Medical CenterComment on above:Performed By: #### FT4, TSH, VD25, B12, ERTPF, GLYHGB, ALB ####[facility] [address] [place] [address] [facility] Director: Yin Szymanskiformed By: #### GLYHGB, ALB, ERTPF, B12, FT4, TSH, VD25 #### [place] [address] Ship Construction Teacher: Whitney Szymanskissium [Moles/Vol]4.1 mmol/LNormal3.7-5.3 [place] [facility] Health SystemComment on above:Performed By: #### FT4, TSH, VD25, B12, ERTPF, GLYHGB, ALB ####[place] [address] [facility] Director: Yin Szymanskiformed By: #### GLYHGB, ALB, ERTPF, B12, FT4, TSH, VD25 #### [place] [address] Ship Construction Teacher: VIKRAM Szymanskiodium [Moles/Vol]133 mmol/JNja681-558XgnjlOhio State Health SystemComment on above:Performed By: #### FT4, TSH, VD25, B12, ERTPF, GLYHGB, ALB ####[place] [address] Lab Director: Yin Szymanskiformed By: #### GLYHGB, ALB, ERTPF, B12, FT4, TSH, VD25 #### [place] [address] Ship Construction Teacher: Fátima Szymanski nitrogen [Mass/Vol]19 mg/dLNormal8-23[place] State Health SystemComment on above:Performed By: #### FT4, TSH, VD25, B12, ERTPF, GLYHGB, ALB ####[address] [address] [place] [address] Lab Director: Yin Szymanskiformed By: #### GLYHGB, ALB, ERTPF, B12, FT4, TSH, VD25 #### [facility] [address] [place] [address] Ship Construction Teacher: Armen Szymanski Temp.37.0[facility] Memorial HospitalComment on above:Performed By: #### FT4, TSH, VD25, B12, ERTPF, GLYHGB, ALB ####[facility] Cent[facility] [address] [place] [address] Lab Director: Yin Szymanskiformed By: #### GLYHGB, ALB, ERTPF, B12, FT4, TSH, VD25 #### [address] [address] Ship Construction Teacher: Lola Szymanski Hgb5.6 %High043 Lewis StreetComment on above:Result Comment: Reference Range: Non-Smokers 0-2% Average Smoker 2-4% Heavy Smoker <10%Performed By: #### FT4, TSH, VD25, B12, ERTPF, GLYHGB, ALB ####[facility] [address] [place] [address] Lab Director: PEBBLES Szymanskierformed By: #### GLYHGB, ALB, ERTPF, B12, FT4, TSH, VD25 #### [facility] [address] [place] [address] Ship [employer] Teacher: Yordan Lr MDFIO2INFORMATION NOT [facility] Medical CenterComment on above:Performed By: #### FT4, TSH, VD25, B12, ERTPF, GLYHGB, ALB ####[facility] [address] [place] [address] Lab Director: Yordan Madoff, MDPerformed By: #### GLYHGB, ALB, ERTPF, B12, FT4, TSH, VD25 #### [address] [address] Ship Construction Teacher: Yordan Lr MDHCO3 (Bld) [Moles/Vol]20.1 mmol/RPmz16-77AqipxOhio State Health SystemComment on above:Performed By: #### FT4, TSH, VD25, B12, ERTPF, GLYHGB, ALB ####[address] [address] Lab Director: PEBBLES Szymanskierformed By: #### GLYHGB, ALB, ERTPF, B12, FT4, TSH, VD25 #### [place] [address] Ship Construction Teacher: Yordan Lr MDNegative Base Excess1.3 mmol/LNormal0.0-2.0[place] [facility] Health SystemComment on above:Performed By: #### FT4, TSH, VD25, B12, ERTPF, GLYHGB, ALB ####[place] [address] Lab Director: PEBBLES Szymanskierformed By: #### GLYHGB, ALB, ERTPF, B12, FT4, TSH, VD25 #### [place] [address] Ship Construction Teacher: Yordan Lr MDOxygen saturation in Blood97.0 %High60.0-85.0 [place] [facility] Health SystemComment on above:Performed By: #### FT4, TSH, VD25, B12, ERTPF, GLYHGB, ALB ####[address] [address] Lab Director: PEBBLES Szymanskierformed By: #### GLYHGB, ALB, ERTPF, B12, FT4, TSH, VD25 #### [address] [place] [address] Ship Construction Teacher: Pebbles SzymanskiCO226.1 mm WvQdj82-36UeyvkOhio State Health SystemComment on above:Performed By: #### FT4, TSH, VD25, B12, ERTPF, GLYHGB, ALB ####[facility] [address] [place] [address] Lab Director: Yin Szymanskiformed By: #### GLYHGB, ALB, ERTPF, B12, FT4, TSH, VD25 #### [facility] [address] [place] [address] Ship Construction Teacher: Pebbles Szymanski (Bld)7.499 [pH]High7.320-7.420[place] State Health SystemComment on above:Performed By: #### FT4, TSH, VD25, B12, ERTPF, GLYHGB, ALB ####[facility] [address] [place] [address] Lab Director: Yin Szymanskiformed By: #### GLYHGB, ALB, ERTPF, B12, FT4, TSH, VD25 #### [facility] [address] [place] [address] Ship Construction Teacher: Pebbles SzymanskiO274.5 mm VqIznx69-19GhimuOhio State Health SystemComment on above:Performed By: #### FT4, TSH, VD25, B12, ERTPF, GLYHGB, ALB ####[facility] [address] [place] [address] Lab Director: Yin Szymanskiformed By: #### GLYHGB, ALB, ERTPF, B12, FT4, TSH, VD25 #### [facility] [address] [place] [address] Ship Construction Teacher: SANTOS Szymanski Screen, BloodNegativeNormalNEGOhio State Health SystemComment on above:Result Comment: Specimens with hCG levels near the threshold of the test (25 mIU/mL) may give a negative or indeterminate result. In such cases, another test should be performed with a new specimen in 48-72 hours. If early is suspected clinically in this setting, correlation with quantitative serum b-hCG level is suggested. [employer] has confirmed the use of plasma for this test. This has not been cleared or approved by the U.S. Food and Drug Administration. The FDA has determined that such clearance is not necessary.Performed By: #### FT4, TSH, VD25, B12, ERTPF, GLYHGB, ALB ####[facility] [place] [address] Lab Director: PEBBLES Szymanskierformed By: #### GLYHGB, ALB, ERTPF, B12, FT4, TSH, VD25 #### [facility] [address] [place] [address] Ship Construction Teacher: Wen Szymanski Coag (d) [Time]24.8 sGnkeir83.5-30.5[place] State Health SystemComment on above:Result Comment: IV Heparin Therapy Range: 48.6-77.8Performed By: #### FT4, TSH, VD25, B12, ERTPF, GLYHGB, ALB ####[facility] [address] [place] [address] Lab Director: PEBBLES Szymanskierformed By: #### GLYHGB, ALB, ERTPF, B12, FT4, TSH, VD25 #### [facility] [address] [place], [place] [address] Ship Construction Teacher: ALEXANDRA Szymanski Coag (PPP) [Relative time]1.0 {INR}Normal [place] [facility] Health SystemComment on above:Result Comment: Therapeutic Range: Moderate Anticoagulant Intensity: INR = 2.0-3.0 High Anticoagulant Intensity: INR = 2.5-3.5Performed By: #### FT4, TSH, VD25, B12, ERTPF, GLYHGB, ALB ####[address] [address] Lab Director: Yin Szymanskiformed By: #### GLYHGB, ALB, ERTPF, B12, FT4, TSH, VD25 #### [place] [address] Ship Construction Teacher: YAMEL Szymanski Coag (PPP) [Time]10.9 sNormal9.1-12.3[facility] Medical CenterComment on above:Performed By: #### FT4, TSH, VD25, B12, ERTPF, GLYHGB, ALB ####[place] [address] Lab Director: Yin Szymanskiformed By: #### GLYHGB, ALB, ERTPF, B12, FT4, TSH, VD25 #### [place] [address] [employer] Teacher: Yordan Lr MDErythrocyte distribution width (RBC) [Ratio]12.5 %Urhkwy46.0-15.0[facility] Medical CenterComment on above:Performed By: #### FT4, TSH, VD25, B12, ERTPF, GLYHGB, ALB ####[place] [address] Lab Director: Yin Szymanskiformed By: #### GLYHGB, ALB, ERTPF, B12, FT4, TSH, VD25 #### [place] [id number] [employer] Teacher: Yin Szymanskiformed By: #### CBC #### [facility] [address] [place] [address] Brii Monroe (Bld) [Volume fraction]40.9 %Ydpvnn43.3-47.1[facility] Medical CenterComment on above:Performed By: #### FT4, TSH, VD25, B12, ERTPF, GLYHGB, ALB ####[place] [address] [facility] Director: PEBBLES Szymanskierformed By: #### GLYHGB, ALB, ERTPF, B12, FT4, TSH, VD25 #### [place] [address] [employer] Teacher: Yordan Lr MDHemoglobin (Bld) [Mass/Vol]13.6 g/dLNormal 11.9-15.1MGarden Grove Hospital and Medical CenterComment on above:Performed By: #### FT4, TSH, VD25, B12, ERTPF, GLYHGB, ALB ####[place] [address] [facility] Director: Yin Szymanskiformed By: #### GLYHGB, ALB, ERTPF, B12, FT4, TSH, VD25 #### [place] [address] [employer] Teacher: AMY Szymanski (RBC) [Entitic mass]29.6 fqRoagch37.2-33.5 [place] [facility] SystemComment on above:Performed By: #### FT4, TSH, VD25, B12, ERTPF, GLYHGB, ALB ####[place] [address] Lab Director: Yin Szymanskiformed By: #### GLYHGB, ALB, ERTPF, B12, FT4, TSH, VD25 #### [place] [address] [employer] Teacher: AMY SzymanskiC (RBC) [Mass/Vol]33.3 g/hDKjbnqk57.4-34.8 [place] [facility] SystemComment on above:Performed By: #### FT4, TSH, VD25, B12, ERTPF, GLYHGB, ALB ####[place] [address] Lab Director: Yin Szymanskiformed By: #### GLYHGB, ALB, ERTPF, B12, FT4, TSH, VD25 #### [place] [id number] [employer] Teacher: KRISTA SzymanskiCV (RBC) [Entitic vol]89.1 eMJjoada00.6-102.9 [place] [facility] SystemComment on above:Performed By: #### FT4, TSH, VD25, B12, ERTPF, GLYHGB, ALB ####[place] [address] [facility] Director: Yin Szymanskiformed By: #### GLYHGB, ALB, ERTPF, B12, FT4, TSH, VD25 #### [place] [address] [employer] Teacher: Yordan Lr MDNRBC Automated0.0 per 100 WBCNormal0.0[facility] SystemComment on above:Performed By: #### FT4, TSH, VD25, B12, ERTPF, GLYHGB, ALB ####[place] [address] Lab Director: Yin Szymanskiformed By: #### GLYHGB, ALB, ERTPF, B12, FT4, TSH, VD25 #### [place] [address] [employer] Teacher: Anum Szymanski mean volume (Bld) [Entitic vol]9.8 fL Normal8.1-13.5[facility] Health SystemComment on above:Performed By: #### FT4, TSH, VD25, B12, ERTPF, GLYHGB, ALB ####[address] [address] Lab Director: PEBBLES Szymanskierformed By: #### GLYHGB, ALB, ERTPF, B12, FT4, TSH, VD25 #### [address] [address] Ship [employer] Teacher: Sasha Szymanski ([facility]) [#/Vol]162 10*3/tBQejgzt671-782 [place] [facility] SystemComment on above:Performed By: #### FT4, TSH, VD25, B12, ERTPF, GLYHGB, ALB ####[address] [address] Lab Director: PEBBLES Szymanskierformed By: #### GLYHGB, ALB, ERTPF, B12, FT4, TSH, VD25 #### [address] [address] Ship [employer] Teacher: VIKTORIA Szymanski ([facility]) [#/Vol]4.59 10*6/uLNormal3.95-5.11 [place] [facility] SystemComment on above:Performed By: #### FT4, TSH, VD25, B12, ERTPF, GLYHGB, ALB ####[address] [address] Lab Director: Yin Szymanskiformed By: #### GLYHGB, ALB, ERTPF, B12, FT4, TSH, VD25 #### [address] [address] [employer] Teacher: HUE Szymanski ([facility]) [#/Vol]7.8 10*3/uLNormal3.5-11.3MGarden Grove Hospital and Medical CenterComment on above:Performed By: #### FT4, TSH, VD25, B12, ERTPF, GLYHGB, ALB ####[address] [id number] Lab Director: PEBBLES Szymanskierformed By: #### GLYHGB, ALB, ERTPF, B12, FT4, TSH, VD25 #### [facility] [address] [place] [address] [id number] [employer] Teacher: Miguelina SzymanskiMonticello Hospital FOR SERVICES PERFORMEDClinton Memorial HospitalComment on above:Performed By: #### FT4, TSH, VD25, B12, ERTPF, GLYHGB, ALB ####[facility] [address] [place] [address] [id number] Lab Director: PEBBLES Szymanskierformed By: #### GLYHGB, ALB, ERTPF, B12, FT4, TSH, VD25 #### [address] [phone] [employer] Teacher: Yordan Lr MDType + Screenon [id number] + ScreenSample Expiration 04/17/2022,2359 Arm Band Number BE [id number] ABO/Rh(D) A POSITIVE Antibody Screen [facility] NorthComment on above: Performed By: #### TYS #### [address] [phone] [employer] Teacher: PEBBLES Szymanskierformed By: #### TYS ####[address] [id number] Lab Director: Yordan Lr MDUrinalysis with Reflex to Cultureon [id number] UrineNegative NEGATIVEBON SECOURS MERCY HEALTHColor, UAYellowYellowBON SECOURS MERCY HEALTH Glucose, UrNegativeNEGATIVEBON SECOURS MERCY HEALTHInterpretation and review of laboratory resultsAbnormalBON SECOURS MERCY HEALTHKetones Ql (U)TRACEAbnormal NEGATIVEBON SECOURS [facility] HEALTHLeukocyte esterase Test strip Ql (U)Negative NEGATIVEBON SECOURS MERCY HEALTHNitrite, UrineNegativeNEGATIVEBON SECOURS MERCY HEALTHpH, UA6.55.0 - 8.0S[facility]IAL HOSPITALProtein, UANegativeNEGATIVESHENANDOAH MEMORIAL HOSPITALSpecific Sheldahl, UA1.356Pndj6.005 - 1.030SHENANDOAH MEMORIAL HOSPITALTurbidity UAClearClearSHENANDOAH MEMORIAL HOSPITALUrinalysis Comments Microscopic exam not performed based on chemical results unless requested in original order.[facility]ORIAL HOSPITALUrine HgbNegativeNEGATIVEBON GEORGETOWN BEHAVIORAL HOSPITALUrobilinogen, UrineNormalNormalBON AVERA ST. BENEDICT HEALTH CENTERVitamin B12on 41-76-3450Lwhjijtik (Vitamin B12) [Mass/Vol]721 pg/mL Pgnkah433-6005DudfrOhio State Health SystemComment on above:Performed By: #### FT4, TSH, VD25, B12, ERTPF, GLYHGB, ALB ####[facility] [address] [place], [place] [id number] Lab Director: PEBBLES Szymanskierformed By: #### GLYHGB, ALB, ERTPF, B12, FT4, TSH, VD25 #### [facility] [address] [place], [place] [id number] [employer] Teacher: Lia Szymanskiin (Vitamin B12) [Mass/Vol]721 pg/mL232 - 1245 pg/mLSENTARA MARTHA JEFFERSON HOSPITALVitamin D 25 Hydroxy on 90-99-2027Dro D, 25-Qlyppis71.6 ng/mL29.9 - PINF ng/mLSHENANDOAH MEMORIAL HOSPITALComment on above: Reference Range: Vitamin D status Range Deficiency <20 ng/mL Mild Deficiency 20-30 ng/mL Sufficiency 30-100 ng/mL Toxicity >100 ng/mL SHE[facility]ND[facility] MEMORIAL HOSPITALVitamin D 25 OHon 99-70-6360Ocsmptq D 25 OH33.6 ng/mL Normal>29.9[facility] Health SystemComment on above:Result Comment: Reference Range: Vitamin D status Range Deficiency <20 ng/mL Mild Deficiency 20-30 ng/mL Sufficiency 30-100 ng/mL Toxicity >100 ng/mLPerformed By: #### FT4, TSH, VD25, B12, ERTPF, GLYHGB, ALB ####[address] [place] [address] Lab Director: PEBBLES Szymanskierformed By: #### GLYHGB, ALB, ERTPF, B12, FT4, TSH, VD25 ####[facility] [address] [place], [place] [id number] lab Director: LINDY SzymanskiR HAND SHAUNA MIN 3Von 45-75-6022PH HAND SHAUNA MIN 3VEXAM: XR HAND SHAUNA MIN 3V HISTORY: Bilateral hand pain COMPARISON: None. TECHNIQUE: 3 views of each hand FINDINGS: No fracture, dislocation, subluxation or osseous lesion. Scattered age-related degenerative changes most pronounced on the right at the first IP joint and on the left at the carpometacarpal articulation. Bilateral positive ulnar variance. IMPRESSION: No acute abnormality Electronically authenticated by: MANUEL OKCH Date: 2022-04-14 16:53[facility] DaytonPT INTACTon 42-58-5684CLI, Dyiriq57 pg/hAKbetjf82-47Qff [facility] CenterComment on above:Performed By: #### PTHINT #### [facility] [address] [address] [address] Brii Becker AUTO DIFFon 20-42-7310SMNI #0.0 103/ulNormal0.0-0.1The [facility] CenterComeaton rapids medical center on above:Performed By: #### CBC ####[facility] [address] [place] [address]Dr.Yilan HumphriesBasophils/100 WBC (Bld)0.6 %Normal0.2-2.0The [facility] CenterComment on above:Performed By: #### CBC ####[facility] [address] [place] [address] ChangEO #0.2 103/ulNormal0.0-0.7The [facility] CenterComment on above:Performed By: #### CBC ####[facility] [address] [place] [address]Dr.Brii ChangEosinophils/100 WBC (Bld)4.4 %Normal 0.9-7.0The [facility] on above:Performed By: #### CBC ####[facility] [address] [place], [place] [address]Dr.Brii Humphries Erythrocyte distribution width (RBC) [Ratio]12.7 %Gljlak23.0-15.0The [facility] CenterComment on above:Performed By: #### CBC ####[facility] F[address] [place], [place] [address]Dr.Brii ChangHematocrit (Bld) [Volume fraction]40.5 %Ougpos33.0-48.0The [facility] CenterComeaton rapids medical center on above:Performed By: #### CBC ####[facility] Igowuhdoec[address] [place], [place] [address]Dr.Brii ChangHemoglobin (Bld) [Mass/Vol]13.0 g/dL Pepvro52.0-16.0The [facility] on above:Performed By: #### CBC ####[facility] [address]im[address] [place], [place] [address]Dr. Brii ChangIG #0.01 10e3/ulNormal0.00-0.03The [facility] on above: Performed By: #### CBC ####[facility] Ukbiaortcg[address] [place], [place] [address]Dr.Brii ChangIG %0.2 %Normal0.0-0.5The [facility] CenterComeaton rapids medical center on above:Performed By: #### CBC ####[facility] [address]af[address] [place], [place] [address]Dr.Brii ChangLYMPH #1.2 103/ulNormal1.2-3.8The [facility] CenterComment on above:Performed By: #### CBC ####[facility] [address]ckk[address] [place], [place] [address]Dr. Brii ChangLymphocytes/100 WBC (Bld)24.3 %Fqaqha74.5-60.0The [facility] Comment on above:Performed By: #### CBC ####[facility] [address]fmy[address] [place] [address]Dr.Brii HumphriesMANUAL DIFF REQNONormalThe [facility] Medical CenterComment on above:Performed By: #### CBC ####[facility] [address]csvuoc[address] [place] [address]Dr.Brii YandelH (RBC) [Entitic mass]28.7 hcNhrshz24.7-34.0The [facility] HospitalComment on above: Performed By: #### CBC ####[facility] Tovgqw[address] [place], [place] [address]Dr.Brii HumphriesMCHC (RBC) [Mass/Vol]32.1 g/dLNormal 29.9-35.2The [facility] CenterComment on above:Performed By: #### CBC ####[facility] Oajlhuds[address] [place], [place] [address]Dr. Carijesse HumphriesV (RBC) [Entitic vol]89.4 wMHwedjj82.0-99.0The [facility] Comment on above:Performed By: #### CBC ####[facility] Maxkbfvert[address] [place], [place] [address]Dr.Brii HumphriesMONO #0.4 103/ulNormal0.3-0.8 The [facility] CenterComment on above:Performed By: #### CBC ####[facility] Hckanphksy[address] [place], [place] [address]Dr.Brii Yandel Monocytes/100 WBC (Bld)7.8 %Normal1.7-12.0The [facility] CenterComment on above: Performed By: #### CBC ####[facility] Hnn[address]dug[address] [place], [place] [address]Dr.Brii HumphriesNEUT #3.1 103/ulNormal1.4-6.5The [facility] CenterComment on above:Performed By: #### CBC ####[facility] [address]epv[address] [place], [place] [address]Dr.Carijesse HumphriesNeutrophils/100 WBC (Bld)62.7 %Wacasr58.0-75.0The [facility] CenterComment on above:Performed By: #### CBC ####[facility] Jvfuuuplna[address] [place], [place] [address]Dr.Brii HumphriesPlatelet mean volume (Bld) [Entitic vol]10.1 fLNormal9.5-13.5 The [facility] HospitalComment on above:Performed By: #### CBC ####[facility] Kxhxhfuxup[address] [place], [place] [address]Dr.Brii EdedbAEM774 103/rgZqdpmp305-092Ogr [facility] CenterComment on above:Performed By: #### CBC ####[facility] Olwuyjffst[address] [place], [place] [address]Dr. Brii ChangRBC4.53 106/ulNormal4.20-5.40The [facility] CenterComment on above: Performed By: #### CBC ####[facility] Ylvucfgkqc[address] [place], [place] [address]Dr.Brii ChangWBC5.0 103/ulNormal4.0-11.0The [facility] CenterComment on above:Performed By: #### CBC ####[facility] Orhselwosv[address] [place], [place] [address]Dr.Brii ChangPROF CHEM 8 (BAS METB)on 21-01-3363Pxsbj gap [Moles/Vol]9.9 mmol/LNormalThe [facility] Medical CenterComment on above:Performed By: #### TSH, BMP ####[facility] Ielrhbtudv[address] [place], [place] [address]Dr. Carijesse HumphriesCalcium [Mass/Vol]10.3 mg/dLCritically high8.5-10.1The [facility] CenterComment on above:Performed By: #### TSH, BMP ####[facility] Efglfsbkgo[address] [place], [place] [address]Dr. Brii ChangChloride [Moles/Vol]105 mmol/LNormal 98-107The [facility] CenterComment on above:Performed By: #### TSH, BMP ####[facility] J[address]th[address]at[address] [place] [address]Dr. Brii ChangCO2 [Moles/Vol]31.8 mmol/QDeonqp97.0-32.0The [facility] on above:Performed By: #### TSH, BMP ####[facility] Hprqfgqxww[address] [place], [place] [address]Dr. Brii ChangCreatinine [Mass/Vol]0.80 mg/dL Normal0.55-1.02The [facility] CenterComeaton rapids medical center on above:Performed By: #### TSH, BMP ####[facility] Jzsznlkawx[address] [place], [place] [address]Dr. Yilan ChangEGFR-AF MARTINIQUAIS>60Normal>=60The [facility] CenterComeaton rapids medical center on above: Performed By: #### TSH, BMP ####[facility] Ystvvgsvrq[address] [place], [place] [address]Dr. Yilan ChangEGFR-NON AF MARTINIQUAIS>60Normal>=60The [facility] on above:Performed By: #### TSH, BMP ####[facility] Zzfowhxabr[address] [place], [place] [address]Dr. Brii Humphries Glucose [Mass/Vol]109 mg/dLCritically yjaa56-976Bse [facility] on above:Performed By: #### TSH, BMP ####[facility] Pdlujndjgs[address] [place], [place] [address]Dr. Yijesse ChangPotassium [Moles/Vol]4.7 mmol/LNormal 3.5-5.1The [facility] on above:Performed By: #### TSH, BMP ####[facility] Hgxkbiifmv[address] [place], [place] [address]Dr. Yilan ChangSodium [Moles/Vol]142 mmol/UQqjdmk012-990Xym [facility] on above:Performed By: #### TSH, BMP ####[facility] Qlievfeckk[address] [place], [place] [address]Dr. Yilan ChangUrea nitrogen [Mass/Vol]22.0 mg/dL Critically high7.0-18.0The [facility] on above:Performed By: #### TSH, BMP ####[facility] [address] [place], [place] [address]Ya. Brii HumphriesUrea nitrogen/Creatinine [Mass ratio]27.5 mg/mgNormalThe [facility] CenterComment on above:Performed By: #### TSH, BMP ####[facility] R[address] [place], [place] [address]Uo. Brii Dickersonn 84-60-3108HSU4.719 uIU/mLNormal0.358-3.740[facility] Orrville HospitalComment on above: Performed By: #### TSH, BMP ####[facility] [address] [place], [place] [address]Bn. Brii WyattPNon 08-73-6724NUILXljjdocyt (INTMLN) AYANA ALVES ([id number]) 1940 F Date Time Provider Department 11/26/21 [...] 81 mg by mouth once daily. - rnkiwpm-hftonyacd-hfkanmd D3 500 mg(1,250mg) -200 unit per tablet [...] los*01/13/2020 Encounter Status:Closed by HAVEN GR [facility] 1 25 DIHYDROXYon 89-00-1382Zloiduwkax(1,25 di-[place] Vit D)91.6 pg/mL Critically high19.9-79.3The [facility] CenterComment on above:Performed By: #### GFPE567 ####[facility] [address] [place] [address]Dr. Brii CORTEZ DOP LEG LTon 16-02-9033BD CHARLOT[place] DOP LEG LTEXAMINATION: US CHARLOTTE DOP LEG LT HISTORY: Pain of left [...] Electronically authenticated by: MANUEL HAYWOOD Date: 2021-10-02 16:[address] [place], [place] [address]FT3on 48-60-5534YZ54.04 pg/mLNormal2.45-5.93[facility] Care CenterComment on above:Performed By: #### 1000, 4510, 4520 #### [facility] Unless Otherwise Noted [address] [place] [address] / COLA #4724/CLIA # [id number] 02-93-2128Qekp T4 [Mass/Vol]0.97 ng/dLNormal 0.78-2.44[facility] Care CenterComment on above:Performed By: #### 4500, 4510, 4520 #### [facility] Unless Otherwise Noted [address] [address] / [facility] #4724/CLIA # [id number] 23-87-7513HGL Qn1.36 uIU/mlNormal0.47-4.68 [facility] CenterComment on above:Performed By: #### 4500, 4510, 4520 #### [facility] Unless Otherwise Noted [address] [address] / [facility] #4724/LISA # [id number] Vital Signs Date TimeVital SignValuePerforming RdkgojyeuNcitwwva00-08-3503 12:03-0400Body lcynxzohzpu04.1 [degF]Gm Cerrato MD Work Phone: [phone])[address]09-22-2025 12:03-0400Diastolic blood apvagpzu77 mm[Hg]Gm Cerrato MD Work Phone: [phone])93644 [address]09-22-2025 12:03-0400Heart rate 63 /Peter Cerrato MD Work Phone: [phone])[address]09-22-2025 12:03-0400 Respiratory rate16 /Peter Cerrato MD Work Phone: [phone])39544 [address]09-22-2025 12:03-3740AdC1% (BldA) [Mass fraction]94 %Gm Cerrato MD Work Phone: [phone])[address]09-22-2025 12:03-0400Systolic blood mgexrxat393 mm[Hg]Gm Cerrato MD Work Phone: [phone] [address]09-19-2025 14:28-0400Body kooznt678.4 cmRushorty Cerrato MD Work Phone: [phone] [address]09-19-2025 14:28-0400Body mass index (BMI) [Ratio]24.41 kg/t5AjycdeqGm Cerrato MD Work Phone: [phone] [address]09-19-2025 14:28-0400Body tcqevq48.7 kgGm Cerrato MD Work Phone: [phone])[address]08-27-2025 12:58-0400Body njmymz349.9 cmSteven Rusher DPM Work Phone: [facility] HospitalKwqcvjxcvt46-14-9487 12:58-0400Body mass index (BMI) [Ratio]22.67 kg/q9Kwxwaf Rusher DPM Work Phone: [phone] [place], [place] [address]Otkuoeudkz35-07-9352 12:58-0400Body bbulry10.43 kgSteven Rusher DPM Work Phone: [phone] [place], [place] [address]Hfwhwilmrs27-88-0843 14:20-0400Body szpyiq105.[address] [place], [place] 0764206-20-2025 14:20-0400Body mass index (BMI) [Ratio] 23.18 kg/m2Pfo [address] [place], [place] 0764206-20-2025 14:20-0400Body temperature 98.01 [degF]Pfo [address] [place], [place] 0764206-20-2025 14:20-0400Body ldzedi13.[address]06-20-2025 14:20-0400Diastolic blood tobdqikr79 mm[Hg]Pfo [address] [place], [place] 07[address]206-20-2025 14:20-0400Heart rate91 /minPfo 5 [facility]06-20-2025 14:20-0400Respiratory rate18 /minPfo 5 [facility]06-20-2025 14:20-7913XmR7% (BldA) [Mass fraction]97 %[address]06-20-2025 14:20-0400Systolic blood mm[Hg] Pfo [address] [place], [place] 07[address]205-21-2025 14:06-0400Body ilpkij696.5 cmSteven Rusher DPM Work Phone: [phone]05-21-2025 14:06-0400Body mass index (BMI) [Ratio]21.95 kg/j7Esfbot Rusher DPM Work Phone: [phone] [place], [place] [address]Vxpkgklndu49-18-9716 14:06-0400Body jjuxnx73.43 kgSteven Rusher DPM Work Phone: [address] [place], [place] [address]Bfwztufqby76-96-2106 10:36-0400Body mqntxu212.9 Mark Garcia MD Work Phone: [phone])[phone] [place], [place] 1377404-17-2025 10:36-0400Body mass index (BMI) [Ratio]23.16 kg/p5IeatudDeepika Garcia MD Work Phone: 1([phone] [place], [place] 1377404-17-2025 10:36-0400Body .6 kgDeepika Garcia MD Work Phone: [phone])963-[address] [place], [place] 1377404-17-2025 10:36-0400Diastolic blood tygnzexu90 mm[Hg]Deepika Garcia MD Work Phone: 1(728)458-[address] [place], [place] 1377404-17-2025 10:36-0400Heart rate 88 /minDeepika Garcia MD Work Phone: [phone])419-[address] [place], [place] 1377404-17-2025 10:36-0400Systolic blood ybkibqxk531 mm[Hg]Deepika Garcia MD Work Phone: [phone] [place], [place] 1377402-19-2025 08:39-0500Body ipupuz187.9 cmHalima Hooks MD Work Phone: [phone]02-19-2025 08:39-0500Body mass index (BMI) [Ratio]23.85 kg/r1KgkqhekHalima Hooks MD Work Phone: [facility]02-19-2025 08:39-0500Body nlzimzoiejm56.59 [degF]Halima Hooks MD Work Phone: [facility]02-19-2025 08:39-0500Body cytbfs43.24 kgHalima Hooks MD Work Phone: [facility]02-19-2025 08:39-0500Diastolic blood femyrcgu96 mm[Hg]Halima Hooks MD Work Phone: [facility]02-19-2025 08:39-0500Heart rate 70 /minHalima Hooks MD Work Phone: [facility]02-19-2025 08:39-4349PkL6% (BldA) [Mass fraction]95 %Halima Hooks MD Work Phone: [facility]02-19-2025 08:39-0500Systolic blood prugmlof558 mm[Hg]Halima Hooks MD Work Phone: [facility]11-18-2024 14:35-0500Body gfeswk700.4 [facility] 14:35-0500Body mass index (BMI) [Ratio]23.7 kg/o6KcesojscmAvita Health [facility]11-18-2024 14:35-0500Body lbyjcjujsnv05.9 [degF][facility]11-18-2024 14:35-0500Body .05 kgAv[facility]11-18-2024 14:35-0500Diastolic blood sntebaij65 mm[Hg][facility] 04-26-2024 14:35-0500Heart rate99 /[facility] 04-26-2024 14:35-6165JfX8% (BldA) [Mass fraction]94 %[facility]11-18-2024 14:35-0500Systolic blood kpuvqiyg366 mm[Hg][facility]09-17-2024 10:40-0400Body qfqoow199.4 cmAv[facility]09-17-2024 10:40-0400Body mass index (BMI) [Ratio]23.4 kg/h7ElzmhebzoAvita Health System [facility]09-17-2024 10:40-0400Body .43 [facility]09-17-2024 10:40-0400Diastolic blood mm[Hg] [facility]09-17-2024 10:40-0400Heart rate87 /[facility]09-17-2024 10:40-0400Systolic blood iqfhxmhc400 mm[Hg] [facility]04-11-2024 14:03-0400Body meorwj392.4 cm [facility]04-11-2024 14:03-0400Body mass index (BMI) [Ratio]24.4 kg/x3AzcxetqmgAvita Health System [facility]04-11-2024 14:03-0400Body aakgwr56.81 kgAvita Health [facility]04-11-2024 14:03-0400Diastolic blood vlxdlijz95 mm[Hg][facility]04-11-2024 14:03-0400 Heart rate87 /minAv[facility]04-11-2024 14:03-0400Systolic blood hsoczauh422 mm[Hg][facility]02-01-2024 13:05-0500 Body xoofvw716.5 cmSteven Rusher DPM Work Phone: [phone] 13:05-0500Body mass index (BMI) [Ratio]22.13 kg/o1Eoeqpt Rusher DPM Work Phone: [facility] [id number] 13:05-0500Body cuhldw74.88 kgSteven Rusher DPM Work Phone: [facility] [id number] 09:30-0500Body ikbkgt469.4 cmJessica Maxwell Other [facility]01-22-2024 09:30-0500 Body mass index (BMI) [Ratio]24.02 kg/t0YiuxziJessica Maxwell Other [facility] Other 01-22-2024 09:30-0500Body .79 kgJessica Maxwlel Other [facility]01-22-2024 09:30-0500 Diastolic blood mm[Hg]Jessica Maxwell Other [facility]01-22-2024 09:30-0500 SaO2% (BldA) [Mass fraction]97 %Jessica Maxwell Other [facility] Other 01-22-2024 09:30-0500Systolic blood mm[Hg] Jessica Maxwell Other [facility]01-15-2024 13:30-0500 Body laafzy317.4 cmJessica Maxwell Other [facility]01-15-2024 13:30-0500 Body mass index (BMI) [Ratio]24.02 kg/d8ZaxjieJessica Maxwell Other [facility] Other 01-15-2024 13:30-0500Body ejjgvh18.79 kgRatnarichard Maxwell Other [facility]01-15-2024 13:30-0500 Diastolic blood qzucocua17 mm[Hg]Jessica Maxwell Other [facility]01-15-2024 13:30-0500 SaO2% (BldA) [Mass fraction]100 %Jessica Maxwell Other [facility] Other 01-15-2024 13:30-0500Systolic blood brxbdyni407 mm[Hg] Jessica Maxwell Other [facility]09-18-2023 13:45-0400 Body kdgluq325.4 cmJessica Maxwell Other [employer] Other 09-18-2023 13:45-0400Body mass index (BMI) [Ratio] 22.85 kg/z1GuohluJessica Maxwell Other [employer] Other 09-18-2023 13:45-0400Body jxdipb93.07 kgJessica Maxwell Other [facility] Other 09-18-2023 13:45-0400Diastolic blood covovpxe23 mm[Hg] Jessica Maxwell Other [employer] Other 09-18-2023 13:45-0400Systolic blood qmiftgsg092 mm[Hg] Jessica Maxwell Other [employer] Other 03-15-2023 15:00-0400Body ngvykk114.4 cmJustliza Salas Other [facility] [employer] Other 03-15-2023 15:00-0400Body mass index (BMI) [Ratio] 22.85 kg/i2Uqszuijulissa Salas Other [facility] Other 03-15-2023 15:00-0400Body ebfsdu05.07 kgJustliza Salas Other [facility] Other 11-07-2022 12:00-0500Body nqzsuddetyl82.2 [degF] Edin Boo MD Work Phone: [facility]11-07-2022 12:00-0500Diastolic blood kressnel64 mm[Hg]Edin Boo MD Work Phone: [facility]11-07-2022 12:00-0500Heart rate61 /minEdin Boo MD Work Phone: [facility]11-07-2022 12:00-5379LpX9% (BldA) [Mass fraction]99 %Edin Boo MD Work Phone: [facility]11-07-2022 12:00-0500Systolic blood cgcggamq327 mm[Hg]Edin Boo MD Work Phone: [facility]11-07-2022 04:15-0500 Respiratory rate12 /minEdin Boo MD Work Phone: [facility]11-06-2022 23:30-0500Body kdogtm125.9 cmEdin Boo MD Work Phone: [facility]11-06-2022 23:30-0500Body mass index (BMI) [Ratio]21.66 kg/b4OrtlcyuEdin Boo MD Work Phone: [facility]11-06-2022 23:30-0500Body kgMicconcetta Boo MD Work Phone: [facility] Encounters Encounter DateEncounter TypeCare ProviderFacilityStart: 04-14-2025 End: 05-29-3951Xbffhffyb encounterElizabeth BillingsOhioHealth Hardin [facility] Hospital Neurology, A Department of [facility] HospitalComment on above:Updated OrdersStart: 41-39-9140gtvhspyubsPPGVN C ROBERTS [facility] HospitalStart: 04-05-2025 End: 84-84-0183SdsbaoKwrpdx Brown MD Work Phone: dleo [facility] - Medical OncologyStart: 03-30-2025 End: 21-96-4010Flzlhgzme encounterMerconrado Hogue Physicians Family MedicineComment on above:Home Health CareStart: 03-01-2025 End: 73-93-1164Esjxxwlrl encounterNeeru Gresham RN Work Phone: [facility] Family MedicineComment on above: Obstructive airway disease ([facility])Start: 03-01-2025 End: 62-04-4209vyydrkfbtbAwjr P CallahanFacility:[facility] HospitalStart: 02-25-2025 End: 99-54-1423Babfmwpdqh and management of inpatientMaxgina Zeng DO Work Phone: [facility] Comment on above:Pubic bone fracture ([facility]) (Primary Dx); AnxietyStart: 02-12-2025 End: 69-96-5987XkmixjGiimsow M Asif MD Work Phone: [facility] Physicians Family MedicineComment on above: AnxietyStart: 02-02-2025 End: 23-83-3127Elvthm flowsheetSteven A Rusher DPM Work Phone: [facility] PodiatryStart: 02-02-2025 End: 53-05-0815Ohfzax flowsheetSteven A Rusher DPM Work Phone: [facility] PodiatryStart: 02-02-2025 End: 90-22-9210Sobiiqt encounter procedureStecharlotte Nolasco DPM Work Phone: [facility] PodiatryComment on above:Dermatophytosis of nail (Primary Dx); Dystrophic nail; Pain of right great toeStart: 02-02-2025 End: 13-84-1227cgyltcquwvNNDWIW Richard NOLASCONot AvailableStart: 01-31-2025 End: 66-61-8328nwsjtlnvvmMXLGXBJJA NO [facility] Work Phone: Start: 01-31-2025 End: 60-36-6812Jjecbtu encounter procedureJujulissa Salas DO-[facility] Work Phone: Start: 85-57-0518Oxosfqx encounter procedureJujulissa Salas DO-[facility] OrthoStart: 01-19-2025 End: 80-92-6603CegnjvYzvsao Perez CNAProMedica Physicians Family MedicineComment on above:Obstructive airway disease ([facility]CC)Start: 01-04-2025 End: 09-08-4873JafrzwBdejaf Perez CNAProMedjj Physicians Family MedicineComment on above:AnxietyStart: 11-26-2024 End: 37-69-6970fxjsfejjavEjz Infusion Chair [address] [place] [address] - Medical OncologyComment on above:Osteopenia, unspecified location (Primary Dx) Start: 92-19-4744qgdenqrknuKZIOYY [facility] Hospitaltart: 11-22-2024 End: 61-18-0249Zgpaze OnlyKallie Bright APRN-LEGAL WRITING PROFESSOR Work Phone: [facility] MedicineStart: 11-21-2024 End: 75-27-6685HyvrnoWcpeanq M Asif MD Work Phone: [facility] Family MedicineComment on above: AnxietyStart: 11-14-2024 End: 75-68-8614PktdnaHqjx G Loomus MD Work Phone: [facility] Adult NeurologyStart: 11-08-2024 End: 59-18-4694AonrzmQftlq Kurtz CMAProMedica Physicians Family MedicineComment on above:Obstructive airway disease (CMS-HCC) (Primary Dx)Start: 10-27-2024 End: 94-43-2163Dueapr flowsheetSteven A Rusher DPM Work Phone: [facility]S PODIATRYStart: 10-27-2024 End: 41-38-9398Luivtg flowsheetSteven A Rusher DPM Work Phone: NOBY PODIATRYStart: 10-27-2024 End: 12-44-7532Gqiwhs outpatient visit 15 minutesSteven A Rusher DPM Work Phone: NOCK PODIATRYComment on above:Dermatophytosis of nail (Primary Dx); Dystrophic nail; Pain of right great toeStart: 10-27-2024 End: 64-33-9895jepibcsbvkWHAHTQ A RUSHERNot AvailableStart: 10-11-2024 End: 23-72-1917IyfqebSvdstwk M Asif MD Work Phone: [facility] Family MedicineComment on above: AnxietyStart: 10-05-2024 End: 54-28-0669ldvslnfzhoVTAKV C ROBERTS [facility] HospitalStart: 09-30-2024 End: 99-38-5619Wxkjoj Staci Garcia [facility] Adult Endocrinology, A Department of Doctors HospitalComment on above:Osteopenia, unspecified location (Primary Dx)Start: 09-23-2024 End: 44-41-6791onlvphmohaBMCLZO [facility] HospitalStart: 09-23-2024 End: 21-90-1440Jkxjbw outpatient visit 25 minutesDeepika Garcia MD Work Phone: [facility] Adult Endocrinology, A Department of Doctors HospitalComment on above:Postprocedural hypothyroidism (Primary Dx); Vitamin D deficiency; Senile osteoporosisStart: 17-97-3882woeonwupfuRRRWMC [facility] HospitalStart: 08-25-2024 End: 81-43-4767DscedhUaikoj Perez CNAProMedjj Physicians Family MedicineComment on above:Anxiety (Primary Dx)Start: 07-28-2024 End: 62-76-6837Hvzjox outpatient new 45 minutesHalima Hooks MD Work Phone: [facility] Family MedicineComment on above: Pulmonary hypertension, unspecified (CMS-HCC) (Primary Dx); Paroxysmal atrial fibrillation ([facility]); Hyperparathyroidism ([facility]); SSS (sick sinus syndrome) ([facility]); PacemakerStart: 07-28-2024 End: 27-26-8199yiirqcijcrFFBNRZT M [facility] Ambulatory PPGStart: 07-27-2024 End: 30-17-6275eneajumhluMNLZ G [facility] Ambulatory PPGStart: 06-25-2024 End: 78-52-9425BuutyzHkfdwe Brown MD Work Phone: [phone] [place] [address] Physicians Adult EndocrinologyComment on above:Postprocedural hypothyroidism; Postoperative hypothyroidismStart: 04-28-2024 End: 46-55-8430mrfmwfgzqdPTZQCK E BRAUNProMedica Cincinnati HospitalStart: 04-26-2024 End: 66-89-0587mbuysdladeZnlfjpmjgBerger Hospital Work Phone: Start: 04-26-2024 End: 63-50-7029Pamtqas encounter procedureKari Physician [facility] Work Phone: Start: 04-20-2024 End: 23-54-9354Rgncbtyxe encounterLaura KeyerProMedica Physicians Neurology Comment on above:06/08/24 MARCUS RESCHEDULEStart: 55-96-2332Rwk-patient / Non-visitKari Physician [facility] Work Phone: Start: 02-24-2024 End: 71-02-6433bsmogtytquOfewppbemCommunity Regional Medical Center Work Phone: Start: 02-24-2024 End: 71-49-7017Eremija encounter procedureNov[facility] Work Phone: Start: 12-95-2559Qhg-patient / Non-visitNov[facility] Work Phone: Start: 09-24-2023 End: 47-19-0010kngwbipbaoQQGYGLBellevue Hospital Ambulatory PPGStart: 09-18-2023 End: 84-99-9626kpqyxkfhmyJnbhfsrijBerger Hospital Work Phone: Start: 09-18-2023 End: 32-56-2441Gjgtiww encounter procedureNov[facility] Work Phone: Start: 01-51-1715Nqu-patient / Non-visitNovant Health [facility] Work Phone: Start: 07-14-2023 End: 15-55-9583buxesidjblOatvni Braun Other [employer] Other Start: 40-19-8737Mqfagltes encounterJessica MaxwellMary Rutan Hospitaltart: 67-02-4814Syckqa flowsheetSjaredven Richard Nolasco DPM Work Phone: noms PODIATRYStart: 28-58-0706Hbvotd flowsheet Werner Nolasco DPM Work Phone: noms PODIATRYStart: 07-10-2023 End: 54-62-2618Qazqhx outpatient visit 15 minutesStpatrick Nolasco DPM Work Phone: noms PODIATRYComment on above:Dermatophytosis of nail (Primary Dx); Dystrophic nail; Pain around toenailStart: 06-30-2023 End: 26-46-0278apdxqxycmzRqieyu Braun Other [employer] Other Start: 51-54-9899Giucnh outpatient visit 15 minutes Jessica MaxwellMary Rutan Hospitaltart: 06-30-2023 End: 83-63-5411Zkxjdsm encounter procedureFirguilherme Physician Group-Start: 06-27-2023 End: 52-45-8451nvajqcdidxTohzza Alissa Other [employer] Other Start: 14-98-5547Ixfvbnasa encounterMarcia AlissaMary Rutan Hospitaltart: 06-23-2023 End: 83-45-5809hqmrcizeanMwigab Maxwell Other [employer] Other Start: 38-57-1646Oiutda outpatient visit 15 minutes Jessica MaxwellMary Rutan Hospitaltart: 06-23-2023 End: 02-02-0141Kawwqmd encounter procedureOsorio [facility] Work Phone: Start: 06-04-2023 End: 53-74-4940fccntjwvahQztkjr Ginna Other [employer] Other Start: 86-42-3347Vkhtraias encounterJustin GinnaFPJerri King OrthopedicsStart: 05-13-2023 End: 72-17-6409flzlvzryztXrwuhq Alissa Other [employer] Other Start: 34-73-3366Isfmxidxq encounterMarcia AlissaMary Rutan Hospitaltart: 05-08-2023 End: 07-45-1265fgdoyxwmfcJatbja Maxwell Other [employer] Other Start: 64-66-7357Cnzrteekx encounterMarcia AlissaMary Rutan Hospitaltart: 04-02-2023 End: 09-99-9311jrpufezybbDkwlci Maxwell Other [employer] Other Start: 93-40-5983Xidfhdjas encounterMarcia BraunMary Rutan Hospitaltart: 03-26-2023 End: 86-00-2020mkmojqobiuGsxnij Maxwell Other [employer] Other Start: 95-40-9609Csirwqmtg encounterMarcia [facility] ClinicStart: 03-11-2023 End: 13-38-6515pdirpkvtpqCctugh Maxwell Other [employer] Other Start: 80-12-4493Jtsuwxdue encounterMarcia Gal[facility] ClinicStart: 02-24-2023 End: 19-79-5528scfuwvmhxaAsutii Maxwell Other [employer] Other Start: 10-86-3551Iyluac outpatient visit 15 minutes Jessica [facility] ClinicStart: 01-22-2023 End: 15-10-2616ecgtiwihfbQakdrq Maxwell Other [employer] Other Start: 65-91-3240Laufmghtj encounterMarcia Gal[facility] ClinicStart: 12-20-2022 End: 21-47-1366klyudegdgoLojvoq Maxwell Other [employer] Other Start: 81-95-7815Zkewiejlg encounterMarcia Galina [facility] ClinicStart: 62-40-7827cdvergornjOTCKVI LUANNLEYFacility:Q1Qqmwx: 09-09-2022 End: 71-37-1525zmxatwanqkXgiwfy Ginan Other [employer] Other Start: 66-03-8516Iixtyy outpatient visit 15 minutes Jeb Nicole Christine OrthopedicsStart: 08-21-2022 End: 53-29-5016ijcneeoecjYvkvpp A GinnaFacility:[facility] Hospitaltart: 45-57-4193Pyryyf outpatient visit 15 minutesJustin LuannleyFPG [facility] OrthopedicsStart: 08-21-2022 End: 87-36-1304ywqutzlzllOC Jeb Salas Work Phone: [facility] Work Phone: Start: 08-21-2022 End: 10-89-7481Asaphdu encounter procedureDO Jeb Salas Work Phone: [facility] Start: 08-19-2022 End: 94-06-7749vlzflfevyoMrzixw Braun Other [employer] Other Start: 29-01-1315Yzrprgbuw encounterMarcia AlissaCHAOYJerri [facility] Medical ClinicStart: 07-29-2022 End: 15-14-4504ikkbioxcaoLhydkm Kelley Other [employer] Other Start: 90-95-6212Adqsbqxpg encounterJustin GinnaBanner Medical ClinicStart: 06-21-2022 End: 11-88-0536mxndxsuonqUbbtnt Maxwell Other [employer] Other Start: 11-39-0162Mcdkmqlqw encounterMarcia Galina [facility] ClinicStart: 06-20-2022 End: 25-39-6658gnjyihsyeyNnpreu Maxwell Other [employer] Other Start: 37-49-9128Ggqbcakrl encounterMarcirichard [facility] Medical ClinicStart: 06-09-2022 End: 98-93-2876uqpkdwbuafZT JESSICA MAXWELLFacility:A8Mbejy: 04-23-2022 End: 81-14-4427hkomifndmbKUYMNA AHAMMADMercy [facility] Hospitaltart: 04-14-2022 End: 76-91-6800vggtufinnsYZOBLOK PROVIDERFacility:METROHealthStart: 04-14-2022 End: 83-01-9153Dsmuhzrzoa and management of inpatientAARON Ernesto [facility]art: 04-14-2022 End: 71-01-8569Bodqlyoykv and management of inpatientEdin Boo MD Work Phone: stvz Car 2- StepdownComment on above:Subdural hematoma (Primary Dx)Start: 04-14-2022 End: 28-05-5890uovkkklxeaBTMCRR RODRIGUEZ .Facility:I1Uhwfn: 90-24-1939Xcwyybrvv department patient visitMITALI Feliciano MD [facility]art: 04-09-2022 End: 16-19-8164gbuqxguhskTQ MARCIA E BRAUNFacility:B9Rzhuz: 04-05-2022 End: 32-82-4245jkmovensmwMXMagi MAXWELLFacility:B6Qcbfs: 15-77-9051Uxvvg health examinationMaraurelia Alissa Other [employer] Other Start: 80-85-4300Wicijrqeqhbtj examination normal Jessica Maxwell Other [employer] Other Start: 33-21-7176ukjombgcgrTBMagi AMBROCIOFacility:H1 Start: 92-52-4789Cyvrkbsmq encounterNopcp (Historical)Internal Medicine [place] Comment on above:colonoscopy questionsStart: 10-05-2021 End: 27-49-6227tbxxscurfvRezwal Kelley Other [facility] Other Start: 82-60-3671Jeudja outpatient visit 15 minutes Jeb King OrthopedicsStart: 10-02-2021 End: 63-92-4994uvwapzntsgJR MARCIA E BRAUNFacility:H1 Procedures DateProcedureProcedure DetailPerforming ClinicianStart: 01-54-6217XZTJ COV 2 BY DAISY/Yesenia Arreola SUPERVISOR PLASTIC SHEETS-LEGAL WRITING PROFESSOR Work Phone: Start: 50-42-1051Ztdargasauoxg metabolic panelTaeler Arsenio SUPERVISOR PLASTIC SHEETS-LEGAL WRITING PROFESSOR Work Phone: Start: 18-70-2960Skjxzakiwgdss metabolic panelTaeler Arsenio SUPERVISOR PLASTIC SHEETS-LEGAL WRITING PROFESSOR Work Phone: Start: 11-51-3054BSWDO TUBESHarriett Alberts MD Work Phone: Start: 44-48-5399DPHWN TUBES BLUE TOPHarriett Alberts MD Work Phone: Start: 65-95-5953Bdqplszxnxutk metabolic panelTaeler Arsenio SUPERVISOR PLASTIC SHEETS-LEGAL WRITING PROFESSOR Work Phone: Start: 02-18-9079EVOVJ Santiago Alberts MD Work Phone: Start: 59-43-4409SAOOA TUBES BLUE TOPHarriett Alberts MD Work Phone: Start: 04-08-3765Bmkgt dip stick/tablet rgnt auto w/o microscopyMaxwell J Buchwalder DO Work Phone: Start: 28-16-5173NB EXTRA URINEMaxwell J Buchwalder DO Work Phone: Start: 80-80-7014GG EXTRA URINE CULTUREMaxwell J Buchwalder DO Work Phone: Start: 61-83-7637OU EXTRA URINE MARBLEMaxwell J Buchwalder DO Work Phone: Start: 87-16-3093Kpxro metabolic panel calcium total Sony J Buchwalder DO Work Phone: Start: 73-68-8767CGBOS TUBESMaxwell J Buchwalder DO Work Phone: Start: 13-47-0148QMOSD TUBES BLUE TOPMaxwell J Buchwalder DO Work Phone: Start: 58-67-9774Yz pelvis w/o contrast material Sony J Buchwalder DO Work Phone: Start: 75-50-8388Mv lumbar spine w/o contrast material Sony J [employer] DO Work Phone: Start: 37-14-0357Ng head/brain w/o contrast material Sony Sharma [employer] DO Work Phone: Start: 86-65-2092Zsjnh elbow 2 viewsMaxgina Sharma [employer] DO Work Phone: Start: 22-16-5171Hgupv X-ray of left hipDO Jeb Salas Work Phone: Start: 56-24-5300Vvnfz X-ray of left femurDO Jeb Salas Work Phone: Start: 05-19-8683VPVIO METABOLIC PANEL W/ REFLEX TO MG FOR LOW KZubair Ahammad DO Work Phone: Start: 16-55-7240Hwxro count complete auto&auto difrntl wbcZubair Ahammad DO Work Phone: Start: 49-60-6468Hcgj tst prsmv instrmnt chem analyzers pr dateLionel Hidalgo MD Work Phone: Start: 37-48-9900Yuwti dip stick/tablet rgnt auto w/o microscopyLionel Hidalgo MD Work Phone: Start: 61-09-2730Kgqnecpi Sumi Boo MD Work Phone: Start: 67-77-4019JW LUMBAR SPINE TRAUMA RECONSTRUCTION Lionel Hidalgo MD Work Phone: Start: 66-24-1887IR THORACIC SPINE TRAUMA RECONSTRUCTIONLionel Hidalgo MD Work Phone: Start: 30-24-9844Rh thorax w/contrast materialLionel Hidalgo MD Work Phone: Start: 16-03-1743Dg head/brain w/o contrast material Lionel Hidalgo MD Work Phone: Start: 99-07-1470Qyzfm typing serologic Angelica Boo MD Work Phone: Start: 82-06-7206Oxvcjgh serum plasma/whole blood Edin Boo MD Work Phone: Start: 12-68-0536LFTZEH PANELMicconcetta Boo MD Work Phone: Start: 52-30-0510Doqvm depression screening assessment Maria A KristenerStart: 92-35-9506Qcziv depression screening assessmentNopcp (Historical)Start: 61-75-4506Ltdwsfv examination of patientMarcia Alissa Other Depression screeningMarcia Maxwell Other Screening for malignant neoplasm of breastMarcia Maxwell Other Viral screeningMarcia Maxwell Other Plan of Treatment DateCare ActivityDetailAuthorStart: 46-89-2603Kjuovlp ScreeningTobacco Screening [facility] SystemStart: 90-90-2768Zqwwlkv ScreeningTobacco Screening [facility] SystemStart: 50-17-3520Njwxwgo ScreeningTobacco Screening [facility] SystemStart: 08-08-2025 End: 06-56-5068PMP Skeletal system Views for bone densityDexa scan central skeletal Imaging Routine Senile osteoporosis Expected: 08/08/2025 (Approximate), Expires: 10/19/2025ProPomerene Hospital SystemComment on above:Expected: 08/08/2025 (Approximate), Expires: 10/19/2025Start: 71-48-4856Itlpmfv ScreeningTobacco ScreeningProCleveland Clinic Ak[facility] Generalca [facility] SystemStart: 98-15-6589Ijdj Risk ScreeningFall Risk ScreeningCorey Hospital SystemStart: 63-64-9151Erqqbji ScreeningTobacco ScreeningProPomerene Hospital SystemStart: 05-11-2025 End: 11-80-1777Yfurplp encounter miikojucd49/03/2025 2:15 PM EST Office Visit [facility] [address] [place] [address] Werner Nolasco DPKeyla [address] [place] [address] [facility] PodiatryStart: 05-02-2025 End: 58-14-5962Rbfwjvy encounter acdvxvcrr03/24/2025 11:30 AM EST Office Visit [facility] [address] Mouna Doe MD [address] [address] [facility]rology, [facility] Start: 04-21-2025 End: 18-72-6634Kiodwnr encounter ahhcrcsim54/13/2025 1:00 PM EST Office Visit [facility] [address] [place] [phone] Edin Hitchcock, [address], [facility], [place] [address] Marcella Avila MedicineStart: 03-17-2025 End: 07-71-1200Ixnuaoo encounter azwzrgvqh60/09/2025 9:30 AM EDT Office Visit [facility] [address] [place] [phone] Edin Hitchcock, DO [address] [place] [address] B, [place] [address] Marcella Avila MedicineStart: 11-66-7511Guvvuynwd vaccinationProMedica Health System Start: 52-21-6149Hpgidpz ScreeningTobacco ScreeningProCleveland Clinic Akron Generalca Health SystemStart: 02-02-2025 End: 90-92-7263Xprbkbs encounter procedureNOMS FH PODIATRYComment on above: ArrivedStart: 99-89-0918Iqxzs X-ray of left hipXR hip LT min 2V(w/wo pelvis)* [facility]tart: 89-80-9184QL Hip - left 2 ViewsProMedica Memorial Hospitaltart: 11-29-2024 End: 66-22-6122Riqwwyl encounter ljqeuomss71/23/2025 3:40 PM EDT Office Visit [facility] [address] [place] [address] [address] [place], [place] [phone] Kallie Bright, SUPERVISOR PLASTIC SHEETS-LEGAL WRITING PROFESSOR [address] [place], [place] [address] ProMalysona [facility] MedicineStart: 11-26-2024 End: 57-57-7802tixjmdzimz20/20/2025 2:30 PM EDT Infusion Sydnie Nickie [facility] [address] [place] [address] Sydnie Nickie [facility] - Medical OncologyStart: 86-25-8420Epqb Risk ScreeningFall Risk ScreeningCorey Hospital SystemStart: 10-27-2024 End: 31-13-1841Eyubojm encounter kbcekeure80/21/2025 1:30 PM EDT Office Visit [facility] [address] [place] [address] Werner Nolasco, DPM [address] [place] [address] ArrivedNOMS FH PODIATRYComment on above:ArrivedStart: 09-30-2024 End: 49-53-9805Nhowmgh encounter procedureProMedica Physicians Adult EndocrinologyStart: 07-28-2024 End: 37-09-5379Dmfqago encounter qidoffzmi28/19/2025 9:00 AM EST Office Visit [facility] [address] [place] [address] [address] [place], [place] [address] Halima Hooks MD [address], [place], [place] [phone] Marcell[facility] MedicineStart: 07-19-2024 End: 48-26-5142Gypngsn encounter tzksuhviz97/10/2025 11:30 AM EST Office Visit [facility] [address] [place] [address] Mouna Doe MD [address] [facility] [address] [place] [address] [facility] Adult NeurologyStart: 04-28-2024 End: 75-80-0328Dgabsqg encounter yikbmubtv42/20/2024 10:00 AM EST Appointment [facility] [address] [place] [address] Edin Poe MD [address], [place] [address] [facility] - MRIStart: 46-03-4719Nkjhbohan vaccinationInfluenza VaccineCorey Hospital SystemStart: 11-10-2023 End: 40-98-4420Tvidvjt encounter jlgsippzs55/03/2024 1:30 PM EDT Office Visit [facility] [address] [place] [address] Werner Nolasco DPM [address] [place] [address] [facility] PODIATRYStart: 07-10-2023 End: 43-24-2579Kmlnnfr encounter prwajuawa87/01/2024 1:15 PM EST Office Visit [facility] [address] [place] [address] Werner Nolasco DPM [address] [place], [place] [phone] ArrivedNOMS PODIATRYComment on above:ArrivedStart: 61-93-4874BQQRIOCJ SCREENDIABETES SCREENGeorgetown Behavioral Hospitaltart: 83-52-9829PAnG,Tdap and Td Vaccines (2 - Td or Tdap)DTaP,Tdap and Td Vaccines (2 - Td or Tdap)[facility] Partnerstart: 61-53-5222Zjxxyvkfb vaccinationInfluenza Vaccine (#1)[facility]Start: 15-52-1405Dhvoplghdi ScreeningDepression ScreeningProPomerene Hospital SystemStart: 04-24-2022 End: 89-97-4157Dimjcwk encounter ipxzdvewk53/16/2022 Office Visit Neurosurgery Flower Preciado, SUPERVISOR PLASTIC SHEETS - LEGAL WRITING PROFESSOR [address] [facility] [address] [place] [address] [facility] ToloStart: 02-53-7180Plmgnnncp vaccinationINFLUENZA (Season Ended)[facility] Hospitaltart: 16-49-6455Vpgwjzfsv vaccinationFlu vaccine (#1)[facility]art: 46-18-9086FUUALWS DIRECTIVE DISCUSSIONADVANCE DIRECTIVE DISCUSSIONGeorgetown Behavioral Hospitaltart: 00-15-0809Zpadd depression screening assessmentDEPRESSION SCREENING [facility] Hospitaltart: 04-31-4888HQG ( or age 60+ yrs) (1 - 1-dose 75+ series)RSV ( or age 60+ yrs) (1 - 1-dose 75+ series)[facility] Partnerstart: 02-11-9959PFVZ DENSITYBONE DENSITYGeorgetown Behavioral Hospitaltart: 2006 Pneumococcal 65+ years Vaccine (1 - PCV)Pneumococcal 65+ years Vaccine (1 - PCV) [facility]Start: 41-80-8714Waxkefnsrqqc Vaccine: 65+ Years (1 - PCV)Pneumococcal Vaccine: 65+ Years (1 - PCV)[facility] PNEUMOCOCCAL: 65+ (1 - PCV)PNEUMOCOCCAL: 65+ (1 - PCV)[facility]: [phone] of varicella zoster vaccineZoster (Shingles) Vaccine (1 of 2)[facility]: [phone] Vaccine: 65+ Years (1 of 1 - PCV)Pneumococcal Vaccine: 65+ Years (1 of 1 - PCV)[facility]: [id number] vaccine (1 of 2)Shingles vaccine (1 of 2)[facility]: [id number] VACCINE (1 of 2)SHINGRIX VACCINE (1 of 2) [facility]: [phone],Tdap and Td Vaccines (1 - Tdap)DTaP,Tdap and Td Vaccines (1 - Tdap)[facility] Health Partnerstart: 00-06-2373LVvD/Tdap/Td vaccine (1 - Tdap)DTaP/Tdap/Td vaccine (1 - Tdap)[facility]Start: 01-82-3364Ennzy microalbumin profileDTAP,TDAP,TD (1 - Tdap)[facility] Start: 84-03-3425Eiuhqybjsh ScreenDepression ScreenBON [facility] Start: 40-01-4102Txbvmsmlvz ScreeningDepression ScreeningEast [facility] City Hospital Start: 12-85-4758QEAPB-19 VACCINE (#1)COVID-19 VACCINE (#1)[facility] Start: 25-49-4405DOUQF-19 Vaccine (#1)COVID-19 Vaccine (#1)[facility] 1941Medicare Annual Wellness (AWV)Medicare Annual Wellness (AWV)[facility]: 1941Medicare Annual Wellness VisitMedicare Annual Wellness VisitEast Liverpool City HospitalCBC W Auto Differential panel - BloodCBC auto differential Lab Routine Lab max of 3 days, Daily, for lab use only until discontinued starting 02/26/2025, 3 completedEast [facility] Comment on above:Lab max of 3 days, Daily, for lab use only until discontinued starting 02/26/2025, 3 completedComprehensive metabolic 2000 panel - Serum or PlasmaComprehensive metabolic panel Lab Routine Lab max of 3 days, Daily, for lab use only until discontinued starting 02/26/2025, 3 completedEast Liverpool City HospitalComment on above:Lab max of 3 days, Daily, for lab use only until discontinued starting 02/26/2025, 3 completed End: 80-61-6270UIARKT Neurology Routine Memory problem 1 Occurrences starting 04/15/2025 until 04/15/2026[employer] Work Phone: Comment on above:1 Occurrences starting 04/15/2025 until 04/15/2026 End: 94-51-2177QTR 12 LeadEKG 12 Lead ECG Routine One Time for 1 Occurrences starting 04/15/2022 until 04/15/2022 [employer] Work Phone: comment on above:One Time for 1 Occurrences starting 04/15/2022 until 04/15/2022Magnesium [Mass/volume] in Serum or PlasmaMagnesium Lab Routine Lab max of 3 days, Daily, for lab use only until discontinued starting 02/26/2025, 3 completedProctor HospitalAncancoComment on above:Lab max of 3 days, Daily, for lab use only until discontinued starting 02/26/2025, 3 completedOxygen Therapy - Maintain SpO2: 90%; *GROUP WORK PROGRAM AIDE Guidelines for O2: Yes; Document: \[email or web address]\epic\EPIC_Reference\Orders\Respiratory Care Guidelines\CPG Oxygen 2022.pdfOxygen Therapy - Maintain SpO2: 90%; *GROUP WORK PROGRAM AIDE Guidelines for O2: Yes; Document: \[email or web address]\epi c\EPIC_Reference\Orders\Respiratory Care Guidelines\CPG Oxygen 2022.pdf Respiratory Care Routine AsNeeded until discontinued starting 02/25/2025 [facility] UniversityComment on above:As Needed until discontinued starting 02/25/2025Oxygen therapy [Minimum Data Set]Initiate Oxygen Therapy Protocol Respiratory Care Routine As Needed until discontinued starting 04/14/2022 [employer] Work Phone: comment on above:As Needed until discontinued starting 04/14/2022 End: 78-16-0551Uzoqi oximetry, spot On current oxygen flowPulse oximetry, spot On current oxygen flow Respiratory Care Routine Once for 1 Occurrences starting 02/25/2025 until 02/25/2025[employer] Work Phone: Comment on above:Once for 1 Occurrences starting 02/25/2025 until 02/25/2025 End: 24-29-6582ZRIQ-CoV-2 (COVID-19) RNA [Presence] in Respiratory specimen by LI with probe detectionSARS/FLU A+B/RSV by NAAT/Molecular (M4RT Collection Tube) Microbiology STAT STAT for 1 Occurrences starting 02/28/2025 until 02/28/2025[employer] Work Phone: Comment on above:STAT for 1 Occurrences starting 02/28/2025 until 02/28/2025 End: 33-42-2389Hhlvgk and language therapy [facility] language pathology evaluation SYSTEM ARCHITECT Routine One Time for 1 Occurrences starting 04/14/2022 until 04/14/2022 [employer] Phone: comment on above:One Time for 1 Occurrences starting 04/14/2022 until 04/14/2022 End: 18-36-3165Sgpctzdlvk panelIncentive spirometry Respiratory Care Routine Every 1hr while awake for 41 Days starting 04/14/2022until 05/25/2022 [employer] Phone: comment on above:Every 1hr while awake for 41 Days starting 04/14/2022 until 05/25/2022 End: 00-20-4060Gkvhgjhsoow [Units/volume] in Serum or PlasmaTSH Lab Routine Postprocedural hypothyroidism 1 Occurrences starting 09/23/2024 until 09/23/2025 [employer] Work Phone: comment on above:1 Occurrences starting 09/23/2024 until 09/23/2025 End: 08-84-4397Gyhffinkg (T4) free [Mass/volume] in Serum or PlasmaT4, free Lab Routine Postprocedural hypothyroidism 1 Occurrences starting 09/23/2024 until 09/23/2025ProV[employer] SystemComment on above:1 Occurrences starting 09/23/2024 until 09/23/2025 End: 33-44-7748URITJM PANELTRAUMA PANEL Lab STAT One Time for 1 Occurrences starting 04/14/2022 until 04/14/2022ON [employer] Phone: comment on above:One Time for 1 Occurrences starting 04/14/2022 until 04/14/2022 End: 72-23-6990Iiwbtxftbzowcnam (T3) Free [Mass/volume] in Serum or PlasmaT3, free Lab Routine Postprocedural hypothyroidism 1 Occurrences starting 09/23/2024 until 09/23/2025[facility] SystemComment on above:1 Occurrences starting 09/23/2024 until 09/23/2025 End: 22-29-7217Oarrxpz D 25 hydroxyVitamin D 25 hydroxy Lab Routine Vitamin D deficiency 1 Occurrences starting 09/23/2024 until 09/23/2025[facility] SystemComment on above:1 Occurrences starting 09/23/2024 until 09/23/2025XR Ankle - left GE [facility] Immunizations Immunization DateImmunizationNotesCare JxlfatzvFvgenzla99-71-9442swufspf and diphtheria toxoids, adsorbed, preservative free, for adult use (5 Lf of tetanus toxoid and 2 Lf of diphtheria toxoid)Jessica Maxwell Other [facility] Payers DatePayer CategoryPayerPolicy [id number]-sdy [id number] Health InsuranceMEDICAL MUTUAL [id number] MUTUAL MEDICAL MUTUAL [id number] 2021-Present [address] [place] [id number] Medical Center Member Subscriber Plan / Payer (Effective 2019-Present) Name: Ayana Alvesember ID: [id number] Relation to Subscriber: Self Name: Ayana Alves Payer ID: Not on file Type: Not on file Address: [address] [place] [id number] MMO MEDICARE SUPPLEMENT [id number] 2019-Present [phone] [address] [place] [address] [id number] 2007MedicareMEDICARE MEDICARE A AND B [id number] 2006-Present [phone] [address] [address] [place] [address] [id number] [id number]. Medicare1.2.840.164085.1.13.693.2.7.3.285032.315 [id number] 2.0.3.82256[id number] 2.0.0.335758.7021-16-1940 [id number] 2.0.1.626162.3.57[id number] 2.840.1.393871.3.57[id number] 2.840.1.126655.3.57[id number] 2.16.840.1.513721.3.57[id number] 2.16.840.1.086148.3.57[id number] 2.16840.1.558541.3.57[id number] 2.16.840.1.078632.3.57[id number] 2.16840.1.040549.3.57[id number] 2.840.1.294901.3.57[id number] 2.840.1.474816.3.57[id number] 2.840.1.837419.3.57[id number] 2.840.1.643902.3.57[id number] 2.840.1.008571.3.57[id number] 2.840.1.090070.3.57[id number] 2.840.1.681671.3.57[id number] 2.840.1.048572.3.57[id number] 2.840.1.861395.3.57[id number] 2.16840.1.639232.3.57[id number] 2.16.840.1.592870.3.57[id number] 2.16.840.1.414354.3.57[id number] 2..840.1.011907.3.57[id number] 2.16.840.1.843[id number] 2.840.1.040442.3.579.2.531 Social History DateTypeDetailFacilityStart: 04-18-2014 End: 53-38-5925Qrliiih smoking status NHISEx-smokerLevasy ClinicStart: 06-09-1955 End: 92-57-5535Xdxvhex of tobacco useCurrent smokerLevasy ClinicStart: 04-18-2014 End: 92-95-2331Tzekxcr use and exposureSmokeless tobacco non-userGeorgetown Behavioral Hospitaltart: 05-03-2020 End: 61-40-8580Jrwslxf intakeCurrent drinker of alcohol (finding)Levasy ClinicStart: 05-03-2020 End: 79-62-2535Jznmuun intakeProPomerene Hospital SystemStart: 80-83-2255Fjlvujo SDOH Alcohol Fvdxdgysz8Ptvuhynaj ClinicStart: 19-59-6089Qvmjhfo SDOH Alcohol Std Ygerwn8Mjtvigway ClinicStart: 90-88-2574Gyf Assigned At BirthFemaleCleveland ClinicStart: 06-20-2020 End: 36-63-5241Gzq Assigned At BirthAffinity Health Partnerstart: 06-09-1954 End: 23-06-5528Gjoenpa of tobacco useCigarette SmokerSHENANDOAH [facility]IAL [facility] Work Phone: start: 12-87-8899Ufpgylx CommentSmoker when she was 17 years old to 22 years oldRIV[facility]IDE [facility] Work Phone: start: 60-56-9591Azlssek Commentone glass of wine every 4 months - [facility] CenterIPTEGO Work Phone: start: 06-15-8287Shc Assigned At BirthNot on [facility] [employer] Work Phone: start: 04-05-2022 End: 00-68-1987Uofslntq to SARS-CoV-2 (event)Not sureVALLEYWISE [facility] [employer] Work Phone: start: 00-52-6925Ovqwpxo Comment1-2 drinks less than monthly in the past year, Caffeine intake: 1-2 cups per day, coffeeNOMS HealthcareAdolescent depression screening nyszwzenuf3WxiDrbckf[address] [place] [address] Start: 57-39-5556Vbmlxti CommentOccasionalCorey Hospital Buggltart: 01-12-2015 End: 39-24-0516XqmKdcolp (finding)[facility] Networkstart: 79-93-2306Ibgbtv identityIdentifies as female gender (finding)[facility]a Networkstart: 80-17-1037Qwxoyy orientationHeterosexual (finding)[facility] HospitalTobacc smoking status NHISUnknown if ever smokedSheltering Arms Hospital Work Phone: Hag the electric, gas, oil, or water company threatened to shut off services in your home in past 12[facility] Medical Equipment Procedure CodeEquipment CodeEquipment Original TextEquipment IdentifierDatesRing Annuloplasty 28mm - [id number] - [id number]: 40-71-7065Kuue Annuloplast Contour 3d 26 - [id number] - [id number]: 20-51-7907Pmav Capsure Fix Novus 5076-52 - [id number] - [id number]: 11-04-2018 Lead Capsure Fix Novus 5076-45 - [id number] - [id number]: 73-01-2990Okhxwee pacemaker, device (physical object) ([id number])[facility] Dubon - [id number] - [id number]: 11-04-2018 Goals DatePatient GoalDesired Activity/StatePersonal health goalComment on above: Evaluation of progress towards goal: plan is home with home healthPersonal health goalComment on above: Evaluation of progress towards goal: under assessment Functional Status DateAssessmentResultFacilKindred Hospital Lima Mental Status DateAssessmentResultNew [facility] Medical Center Clinical Notes 10-05-2021 to 04-14-2025 Note Date & IcsbNzvyCvhcppvo18-93-1784 Miscellaneous Notes* Telephone Encounter - Elizabeth Billings - 04/14/2025 4:13 PM EST Patient [phone] stated that they recently have been in a rehabilitation facility and were unable to completed needed test. Caller stated that test have and would like for to reorder test. Patient stated that they would like orders mailed to their home address on file. * Telephone Encounter - Mouna Doe MD - 04/14/2025 4:13 PM EST I re-ordered the EEG that was originally ordered in July. Message below states she wanted us to mail out the order to her. I suspect if we do that, by the time it arrives at her house and she calls to schedule it, it will already be beyond her 05/02/25 appointment with me. Can someone please both mail out the EEG referral and also call her and tell her to call Central Scheduling to set it up (maybe even before the 05/02 appt.)? TY documented in this encounterEast Liverpool City Hospital11-06-2025 Telephone encounter Note* Telephone Encounter - Elizabeth Billings - 04/14/2025 4:13 PM EST Patient [phone] stated that they recently have been in a rehabilitation facility and were unable to completed needed test. Caller stated that test have and would like for to reorder test. Patient stated that they would like orders mailed to their home address on file. [facility] [employer] Ojjfcs30-90-7443 Telephone encounter Note* Telephone Encounter - Mouna Doe MD - 04/14/2025 4:13 PM EST I re-ordered the EEG that was originally ordered in July. Message below states she wanted us to mail out the order to her. I suspect if we do that, by the time it arrives at her house and she calls to schedule it, it will already be beyond her 05/02/25 appointment with me. Can someone please both mail out the EEG referral and also call her and tell her to call Central Scheduling to set it up (maybe even before the 05/02 appt.)? TY [facility]10-22-2025 Miscellaneous Notes* Telephone Encounter - Monie Barrett CNA - 03/30/2025 9:20 AM EDT Mehreen from [facility] called office to inquire if provider will follow patient for care. Patient has a appointment with another provider in office on April 21, 2025. Ervin stated provider would follow forcare. documented in this encounterEast Liverpool City Hospital10-22-2025 Telephone encounter Note* Telephone Encounter - Monie Barrett CNA - 03/30/2025 9:20 AM EDT Mehreen from [facility] called office to inquire if provider will follow patient for care. Patient has a appointment with another provider in office on April 21, 2025. Ervin stated provider would follow forcare. [facility]09-23-2025 Miscellaneous Notes* Telephone Encounter - Neeru Gresham RN - 03/01/2025 8:18 AM EDT Patient Dc'd to SNF 02/28/25 [facility] s/p fall. ACN is not Care navigating this patient at this time documented in this encounterEast Liverpool City Hospital09-23-2025 Telephone encounter Note* Telephone Encounter - Neeru Gresham RN - 03/01/2025 8:18 AM EDT Patient Dc'd to SNF 02/28/25 [facility] s/p fall. ACN is not Care navigating this patient at this time [facility] [employer] [facility] Work Phone: 1(837) 317-646109-22-2025 History of Present illness Narrative* Ten Gaston RN - 02/28/2025 6:42 PM EDT [facility] transport at bedside for transfer to [facility]. Paper work given to bert. * Ten Gaston RN - 02/28/2025 6:07 PM EDT [facility]N transport for tomorrow AM cancelled * Ten Gaston RN - 02/28/2025 3:27 PM EDT Transport set up for 08 03.01.2025 with [facility] ambulette service. * Harriett Alberts MD - 02/27/2025 2:03 PM EDT Images from the original note were not included. [facility] [address] [facility] [address] Hospital Medicine Progress Note Patient: Ayana Alves Date of : 1940 Room: PCP: HALIMA HOOKS MD Admission date: 02/25/2025 9:33 AM Encounter date: 02/27/25 Hospital Day: 3 SUBJECTIVE Interval History: Status: unchanged. No overnight events. Will need CN to see for placement. Review of Systems Constitutional: Negative for chills and fever. HENT: Negative for ear pain and sore throat. Eyes: Negative for pain and visual disturbance. Respiratory: Negative for cough and shortness of breath. Cardiovascular: Negative for chest pain and palpitations. Gastrointestinal: Negative for abdominal pain and vomiting. Genitourinary: Negative for dysuria and hematuria. Musculoskeletal: Positive for arthralgias and gait problem. Negative for back pain. Skin: Negative for color change and rash. Neurological: Negative for seizures and syncope. All other systems reviewed and are negative. OBJECTIVE BP 114/50 Pulse 60 Temp 36.9 C (98.4 F) (Oral) Resp 16 Ht 152.4 cm (5') Wt 56.7 kg (125 lb) SpO2 93% BMI 24.41 kg/m Temp: [36.6 C (97.9 F)-36.9 C (98.5 F)] 36.9 C (98.4 F) Pulse: [60-61] 60 Resp: [15-20] 16 BP: (108-153)/(49-65) 114/50 SpO2: [92 %-94 %] 93 % O2 Device: None (Room air) Intake/Output Summary (Last 24 hours) at 02/27/2025 1403 Last data filed at 02/26/2025 1821 Gross per 24 hour Intake 240 ml Output -- Net 240 ml Physical Exam Constitutional: Appearance: She is well-developed. HENT: Head: Normocephalic and atraumatic. Nose: Nose normal. Eyes: Pupils: Pupils are equal, round, and reactive to light. Cardiovascular: Rate and Rhythm: Normal rate and regular rhythm. Heart sounds: Normal heart sounds. No murmur heard. Pulmonary: Effort: Pulmonary effort is normal. No respiratory distress. Breath sounds: Normal breath sounds. No wheezing. Abdominal: General: Bowel sounds are normal. Palpations: Abdomen is soft. Tenderness: There is no abdominal tenderness. Musculoskeletal: General: Signs of injury present. Normal range of motion. Cervical back: Neck supple. Comments: Pubic fracture Lymphadenopathy: Cervical: No cervical adenopathy. Skin: General: Skin is warm and dry. Findings: No rash. Neurological: Mental Status: She is alert and oriented to person, place, and time. Cranial Nerves: No cranial nerve deficit. Medications Scheduled: cholecalciferol (vitamin D3), 5,000 Units, oral, Daily clopidogreL, 75 mg, oral, Daily enoxaparin (LOVENOX) injection, 40 mg, subcutaneous, Daily levothyroxine, 50 mcg, oral, QAM AC liothyronine, 5 mcg, oral, Daily sodium chloride, 3 mL, intravenous, Q12H GAVIN spironolactone, 25 mg, oral, Daily Infusions: dextrose 5 % in water, 100 mL/hr sodium chloride 0.9 %, 20 mL/hr As Needed: acetaminophen alum-mag hydroxide-simeth clonazePAM dextrose dextrose 5 % in water dextrose 50 % in water (D50W) glucagon (human recombinant) magnesium sulfate magnesium sulfate ondansetron potassium chloride OR potassium chloride OR potassium chloride IV (Adult) sennosides-docusate sodium sodium chloride sodium chloride sodium chloride 0.9 % Allergies: Celecoxib, Other, Pantoprazole, and Sulfa (sulfonamide antibiotics) Code Status: Full Code Labs Recent Results (from the past 24 hours) Comprehensive metabolic panel Collection Time: 02/27/25 5:02 AM Result Value Ref Range SODIUM 141 134 - 146 mmol/L POTASSIUM 3.9 3.5 - 5.0 mmol/L CHLORIDE 109 98 - 109 mmol/L CARBON DIOXIDE 23 22 - 32 mmol/L ANION GAP 9 5 - 15 mmol/L BLOOD UREA NITROGEN 19 5 - 27 mg/dL CREATININE 0.81 0.40 - 1.00 mg/dL GLUCOSE 103 (H) 65 - 99 mg/dL CALCIUM 9.4 8.5 - 10.5 mg/dL TOTAL PROTEIN 6.0 6.0 - 8.0 g/dL ALBUMIN 3.5 3.2 - 5.3 g/dL ALKALINE PHOSPHATASE 47 39 - 130 U/L AST 16 <=41 U/L ALT 16 <=31 U/L BILIRUBIN,TOTAL 0.7 0.3 - 1.2 mg/dL EGFR Non-Race Dependent 72 >=60 ml/min/1.73sq.m Magnesium Collection Time: 02/27/25 5:02 AM Result Value Ref Range MAGNESIUM 2.0 1.8 - 2.6 mg/dL CBC auto differential Collection Time: 02/27/25 5:02 AM Result Value Ref Range WBC 5.4 4 - 11 x10E9/L RBC Count 4.20 3.8 - 5.2 X10E12/L Hemoglobin 12.3 11.7 - 15.5 g/dL Hematocrit 36.0 35 - 47 % MCV 86 80 - 100 fL MCH 29.3 27 - 34 pg MCHC 34.2 32 - 36 g/dL RDW 13.4 11.5 - 15 % Platelet Count 141 (L) 150 - 450 X10E9/L MPV 8.4 7 - 12 fL Neutrophils % 77.7 % Lymphocytes % 10.8 % Monocytes % 7.1 % Eosinophils % 4.1 % Basophils % 0.3 % Neutrophils Absolute (A) 4.2 1.5 - 6.6 10*3/uL Lymphocytes Absolute 0.6 (L) 1.0 - 3.5 10*3/uL Monocytes Absolute 0.4 0.0 - 0.9 10*3/uL Eosinophils Absolute 0.2 0.0 - 0.4 10*3/uL Basophils Absolute 0.0 0.0 - 0.2 10*3/uL Differential Type AUTOMATED DIFFERENTIAL Extra Tubes Collection Time: 02/27/25 5:02 AM Narrative The following orders were created for panel order Extra Tubes. Procedure Abnormality Status --------- ------ Light Blue Top[[id number]] Final result Please view results for these tests on the individual orders. Light Blue Top Collection Time: 02/27/25 5:02 AM Result Value Ref Range Extra Tube Auto Resulted Radiology No results found. HOSPITAL PROBLEM LIST Principal Problem: Pubic bone fracture (CMS-HCC) Active Problems: Hypertension Paroxysmal atrial fibrillation ([facility]) Presence of cardiac pacemaker- MDT Essential tremor Acquired hypothyroidism ASSESSMENT & PLAN Pubic bone fracture P.r.n. 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 Medically Ready for Discharge: Anticipated Tomorrow CONCHA Cardoza 02/27/2025 2:03 PM [facility] Gustavo [facility] 7AM-7PM & 7PM-7AM: EpicChat or page through On-Call Finder. CONCHA Cardoza 02/27/25 1405 Attending Attestation: I, Dr. Harriett Alberts, personally performed the face to face diagnostic evaluation on this patient. All labs , xrays reviewed. I have reviewed the SARAH's History, Exam and MDM and agree with the assessment and plan as written. Harriett Alberts MD [facility] documented in this encounterEast Liverpool City Hospital09-22-2025 Nurse Note* Elva Dillard RN - 02/28/2025 3:39 PM EDT Called [facility] they will pick patient up at 1800. [facility]09-22-2025 Nurse Note* Elva Dillard RN - 02/28/2025 3:39 PM EDT Called [facility] they will pick patient up at 1800. * Lovely Alves RN - 02/26/2025 1:34 PM EDT Patient had home medications with her and took her own home medications on 02/25/25. Daughter statedthat she was taking home medications home with her on 02/25/25 so that they are not here and that she understands that patients can not use their own home medications. Document Review Specialist went to give medications ordered today and patient and daughter stated that she took her own medications. Daughter stated again that she will betaking medications home today. documented in this encounterEast Liverpool City Hospital09-22-2025 Hospital course Narrative* Gm Cerrato MD - 02/28/2025 2:54 PM EDT Images from the original note were not included. [facility] [address] [facility] [address] Hospital Medicine Discharge Summary Patient: Ayana Alves Date of : 1940 Room: Encounter date: 02/28/25 DATE OF ADMISSION: 02/25/2025 DATE OF DISCHARGE:02/28/2025 DISCHARGE DIAGNOSES Principal Problem: Pubic bone fracture ([facility]) Active Problems: Hypertension Paroxysmal atrial fibrillation ([facility]) Presence of cardiac pacemaker- MDT Essential tremor Acquired hypothyroidism CONSULTANTS None PCP: HALIMA HOOKS MD PROCEDURES None HOSPITAL COURSE SUMMARY Per HPI: Ayana Alves is a 85 y.o. female who presents with mechanical fall. Patient was walkingher dog when she tripped because her dog saw a CAT began around and pulled her down. Patient statedshe fell onto her right side. Did not lose consciousness. Was able to get herself back into her house and called EMS. Does not Plavix at home. Has a past medical history of hypertension, hypothyroidism, migraines. X-ray elbow negative for acute osseous abnormality did reveal focal soft tissue swelling. CT brain negative. CT lumbar spine- Prior L4 laminectomy. Transpedicular screws placed for fusion of L4-L5. Intervertebral disc spacing material is also noted. Hardware appears well incorporated into the bone and free of any acute complication. Bony fusion is noted along the left facets.Underlying levoscoliosis is appreciated. No CT evidence of acute vertebral body fracture. No loss in height. Arthrosis isnoted. No spondylolysis. The bone trabeculation is poor. This does hamper assessment of nondisplaced fractures. If pain or concern persists consider follow-up MR imaging. Vacuum disc phenomenon with disc space narrowing is appreciated at L2-3 and L1-2. SI joints appear symmetric. The abdominal aorta is tortuous. Atherosclerotic disease is noted. Psoas muscles appear symmetric. CT pelvis-There is acute appearing mildly displaced fracture of the right pubic bone and nondisplaced fracture of the right ischial tuberosity. Overall labwork unremarkable did reveal slightly elevated glucose at 100. While patient was here she did receive physical therapy and occupational therapy. Both recommend [facility] facility. Orthopedics did not see patient admitted. Patient to follow up with Orthopedics if needed. Did discuss with ER physician and recommended weight-bearing as tolerated. Nonsurgical. Patient be discharged to [facility] facility today. Clinical concern for sepsis, no-not clinically evident at this time. 02/28/25, Hospital Day: 4 Interval History: Status: improved. No overnight events or new complaints. Pain well controlled. Review of Systems Constitutional: Negative for activity change, appetite change, fatigue and unexpected weight change. HENT: Negative for trouble swallowing. Respiratory: Negative for cough, sputum production, shortness of breath and wheezing. Cardiovascular: Negative for chest pain, palpitations and leg swelling. Gastrointestinal: Negative for abdominal pain, blood in stool, melena, constipation, diarrhea, nausea and vomiting. Genitourinary: Negative for difficulty urinating. Musculoskeletal: Positive for arthralgias and gait problem. Skin: Negative for color change and wound. Neurological: Negative for dizziness, seizures, speech difficulty and headaches. Psychiatric/Behavioral: Negative for sleep disturbance. Physical Exam BP 129/64 Pulse 63 Temp 36.7 C (98.1 F) (Oral) Resp 16 Ht 152.4 cm (5') Wt 56.7 kg (125 lb) SpO2 94% BMI 24.41 kg/m Intake/Output Summary (Last 24 hours) at 02/28/2025 1510 Last data filed at 02/28/2025 1318 Gross per 24 hour Intake 2321.95 ml Output 300 ml Net 2021.95 ml Constitutional: General: No acute distress. Cardiovascular: Rate and Rhythm: Normal rate and regular rhythm. Heart sounds: Normal heart sounds, S1 normal and S2 normal. Pulmonary: Effort: Pulmonary effort is normal. Breath sounds: Normal breath sounds. Musculoskeletal: Gait problem due to pain Right lower leg: No edema. Left lower leg: No edema. Skin: General: Skin is warm and dry. Coloration: Skin is not pale. Neurological: General: No focal deficit present. Psychiatric: Mood and Affect: Mood normal. Behavior: Behavior normal. Labs Recent Results (from the past 48 hours) Comprehensive metabolic panel Collection Time: 02/27/25 5:02 AM Result Value Ref Range SODIUM 141 134 - 146 mmol/L POTASSIUM 3.9 3.5 - 5.0 mmol/L CHLORIDE 109 98 - 109 mmol/L CARBON DIOXIDE 23 22 - 32 mmol/L ANION GAP 9 5 - 15 mmol/L BLOOD UREA NITROGEN 19 5 - 27 mg/dL CREATININE 0.81 0.40 - 1.00 mg/dL GLUCOSE 103 (H) 65 - 99 mg/dL CALCIUM 9.4 8.5 - 10.5 mg/dL TOTAL PROTEIN 6.0 6.0 - 8.0 g/dL ALBUMIN 3.5 3.2 - 5.3 g/dL ALKALINE PHOSPHATASE 47 39 - 130 U/L AST 16 <=41 U/L ALT 16 <=31 U/L BILIRUBIN,TOTAL 0.7 0.3 - 1.2 mg/dL EGFR Non-Race Dependent 72 >=60 ml/min/1.73sq.m Magnesium Collection Time: 02/27/25 5:02 AM Result Value Ref Range MAGNESIUM 2.0 1.8 - 2.6 mg/dL CBC auto differential Collection Time: 02/27/25 5:02 AM Result Value Ref Range WBC 5.4 4 - 11 x10E9/L RBC Count 4.20 3.8 - 5.2 X10E12/L Hemoglobin 12.3 11.7 - 15.5 g/dL Hematocrit 36.0 35 - 47 % MCV 86 80 - 100 fL MCH 29.3 27 - 34 pg MCHC 34.2 32 - 36 g/dL RDW 13.4 11.5 - 15 % Platelet Count 141 (L) 150 - 450 X10E9/L MPV 8.4 7 - 12 fL Neutrophils % 77.7 % Lymphocytes % 10.8 % Monocytes % 7.1 % Eosinophils % 4.1 % Basophils % 0.3 % Neutrophils Absolute (A) 4.2 1.5 - 6.6 10*3/uL Lymphocytes Absolute 0.6 (L) 1.0 - 3.5 10*3/uL Monocytes Absolute 0.4 0.0 - 0.9 10*3/uL Eosinophils Absolute 0.2 0.0 - 0.4 10*3/uL Basophils Absolute 0.0 0.0 - 0.2 10*3/uL Differential Type AUTOMATED DIFFERENTIAL Extra Tubes Collection Time: 02/27/25 5:02 AM Narrative The following orders were created for panel order Extra Tubes. Procedure Abnormality Status --------- ------ Light Blue Top[[id number]] Final result Please view results for these tests on the individual orders. Light Blue Top Collection Time: 02/27/25 5:02 AM Result Value Ref Range Extra Tube Auto Resulted Comprehensive metabolic panel Collection Time: 02/28/25 5:54 AM Result Value Ref Range SODIUM 141 134 - 146 mmol/L POTASSIUM 4.0 3.5 - 5.0 mmol/L CHLORIDE 111 (H) 98 - 109 mmol/L CARBON DIOXIDE 22 22 - 32 mmol/L ANION GAP 8 5 - 15 mmol/L BLOOD UREA NITROGEN 16 5 - 27 mg/dL CREATININE 0.76 0.40 - 1.00 mg/dL GLUCOSE 93 65 - 99 mg/dL CALCIUM 9.4 8.5 - 10.5 mg/dL TOTAL PROTEIN 5.9 (L) 6.0 - 8.0 g/dL ALBUMIN 3.3 3.2 - 5.3 g/dL ALKALINE PHOSPHATASE 46 39 - 130 U/L AST 21 <=41 U/L ALT 18 <=31 U/L BILIRUBIN,TOTAL 0.4 0.3 - 1.2 mg/dL EGFR Non-Race Dependent 77 >=60 ml/min/1.73sq.m Magnesium Collection Time: 02/28/25 5:54 AM Result Value Ref Range MAGNESIUM 2.0 1.8 - 2.6 mg/dL CBC auto differential Collection Time: 02/28/25 5:54 AM Result Value Ref Range WBC 4.0 4 - 11 x10E9/L RBC Count 4.09 3.8 - 5.2 X10E12/L Hemoglobin 12.0 11.7 - 15.5 g/dL Hematocrit 34.9 (L) 35 - 47 % MCV 85 80 - 100 fL MCH 29.4 27 - 34 pg MCHC 34.4 32 - 36 g/dL RDW 13.5 11.5 - 15 % Platelet Count 138 (L) 150 - 450 X10E9/L MPV 8.3 7 - 12 fL Neutrophils % 62.1 % Lymphocytes % 22.0 % Monocytes % 9.2 % Eosinophils % 6.3 % Basophils % 0.4 % Neutrophils Absolute (A) 2.5 1.5 - 6.6 10*3/uL Lymphocytes Absolute 0.9 (L) 1.0 - 3.5 10*3/uL Monocytes Absolute 0.4 0.0 - 0.9 10*3/uL Eosinophils Absolute 0.3 0.0 - 0.4 10*3/uL Basophils Absolute 0.0 0.0 - 0.2 10*3/uL Differential Type AUTOMATED DIFFERENTIAL Radiology CT pelvis without contrast Result Date: 02/25/2025 Narrative: STUDY: PELVIS CT WITHOUT CONTRAST CLINICAL HISTORY: Pelvic pain COMPARISON: 10/23/2018 TECHNIQUE: CT pelvis was performed utilizing 5 mm axial reconstructions without contrast. Coronal and sagittal reformatted images were obtained and reviewed. Automated exposure control was utilized. FINDINGS: Streak artifact resulting from lumbar fusion hardware with multilevel degenerative disc disease. There is degenerative changes of the bilateral sacroiliac joints with degenerative changes of the bilateral hips. There is no definitive acute process, fracture or dislocation. 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 Acute- appearing mildly displaced fracture of the right pubic bone and non-displaced fracture of the right ischial tuberosity. . If the patient is unable to bear weight or if there is concern for nondisplaced hip fracture, consider correlation with MRI. IMPRESSION: 1. There is acute appearing mildly displaced fracture of the right pubic bone and nondisplaced fracture of the right ischial tuberosity. All CT scans at this facility use dose modulation, iterative reconstruction, and/or weight based dosing when appropriate to reduce radiation dose to as low as reasonably achievable. Finalized by Edin Bedolla MD on 02/25/2025 11:[address] lumbar spine without contrast Result Date: 02/25/2025 Narrative: Study: Ct Lumbar spine History: Recent fall. Pain after trauma Technique: Axial images from the lower thoracic spine through the lumbar spine were obtained followed by sagittal and coronalreconstructed images. Findings/impression: Prior L4 laminectomy. Transpedicular screws placed for fu marybeth of L4-L5. Intervertebral disc spacing material is also noted. Hardware appears well incorporated into the bone and free of any acute complication. Bony fusion is noted along the left facets. Underlying levoscoliosis is appreciated. No CT evidence of acute vertebral body fracture. No loss in height. Arthrosis is noted. No spondylolysis. The bone trabeculation is poor. This does hamper assessment of nondisplaced fractures. If pain or concern persists consider follow-up MR imaging. Vacuum disc phenomenon with disc space narrowing is appreciated at L2-3 and L1-2. SI joints appear symmetric. The abdominal aorta is tortuous. Atherosclerotic disease is noted. Psoas muscles appear symmetric All CT scans at this facility use dose modulation, iterative reconstruction, and/or weight based dosing when appropriate to reduce radiation dose to as low as reasonably achievable. Workstation:[id number] by Rosario Stauffer MD on 02/25/2025 11:[address] brain without contrast Result Date: 02/25/2025 Narrative: CT BRAIN WO CONT CLINICAL INFORMATION: fall, on plavix, no LOC COMPARISON: 05/16/2022. PROCEDURE: Routine CT Head obtained without contrast. All CT scans at this facility use dose modulation, iterative reconstruction, and/or weight based dosing when appropriate to reduce radiation dose toas low as reasonably achievable. FINDINGS: No acute intracranial hemorrhage. No mass effect or midline shift. No extra axial fluid collection. No hydrocephalus. Mathias-white differentiation is preserved. No depressed calvarial fracture. IMPRESSION: * No acute intracranial findings by CT. Finalized by Hua Bradley MD on 02/25/2025 10:55 AM X-ray elbow right 2 views Result Date: 02/25/2025 Narrative: XR ELBOW RT 2 VWS HISTORY: Fall, right elbow pain and swelling COMPARISON: 12/01/2023 FINDINGS: No acute fracture or malalignment. Joint spaces are well-preserved. No joint effusion. Focal soft tissue swelling overlying the dorsal proximal ulna. IMPRESSION: * No acute osseous abnormality.* Focal soft tissue swelling over the proximal dorsal ulna. Approved by Resident: Segundo Armstrong MD on 02/25/2025 10:27 AM I, dEin Bedolla MD have personally reviewed the image(s) and agree with and/or edited the report Finalized by Edin Bedolla MD on 02/25/2025 10:28 AM DISCHARGE ASSESSMENT & PLAN Paper script printed for nursing facility for Klonopin OARRS/MAPPS was reviewed by Don Arreola, TIEN-LEGAL WRITING PROFESSOR today. Tylenol as needed for pain. DISCHARGE INSTRUCTION Disposition: ECF Condition: Good Activity: activity as tolerated Diet: Adult diet Regular Texture Adult diet Follow up: HALIMA HOOKS MD within 7-14 days. Follow up with Orthopedics Labs/Imaging/Pathology: None Discharge Medications: Medication List START taking these medications Instructions Last Dose Given Next Dose Due acetaminophen 500 mg tablet Commonly known as: TYLENOL EXTRA STRENGTH Take 2 tablets (1,000 mg total) by mouth every 6 (six) hours as needed for pain. CONTINUE taking these medications Instructions Last Dose Given Next Dose Due clonazePAM 0.5 mg tablet Commonly known as: KlonoPIN Take 1 tablet (0.5 mg total) by mouth 2 (two) times a day as needed for anxiety for up to 10 days. clopidogreL 75 mg tablet Commonly known as: PLAVIX TAKE 1 TABLET BY MOUTH EVERY DAY hydrocortisone 2.5 % rectal cream Commonly known as: ANUSOL-HC Insert 1 Application into the rectum in the morning and 1 Application before bedtime. ipratropium 42 mcg (0.06 %) nasal spray Commonly known as: ATROVENT Administer 1 spray into each nostril in the morning. levothyroxine 50 MCG tablet Commonly known as: SYNTHROID, LEVOTHROID TAKE 1 TABLET BY MOUTH EVERY DAY IN THE MORNING ON EMPTY STOMACH FOR 90 DAYS liothyronine 5 MCG tablet Commonly known as: CYTOMEL TAKE 1 TABLET BY MOUTH EVERY DAY ON AN EMPTY STOMACH PROBIOTIC ORAL Take by mouth. spironolactone 25 mg tablet Commonly known as: ALDACTONE Take 1 tablet (25 mg total) by mouth in the morning. VITAMIN D3 125 mcg (5,000 unit) tablet Generic drug: cholecalciferol (vitamin D3) TAKE 1 TABLET BY MOUTH EVERY DAY IN THE MORNING Where to Get Your Medications These medications were sent to [facility]/pharmacy #[id number] - [place], [place] - [address] [facility] [address] [facility] [id number] acetaminophen 500 mg tablet You can get these medications from any pharmacy Bring a paper prescription for each of these medications clonazePAM 0.5 mg tablet >30 minutes were spent on discharging this patient. CONCHA Cowart, 02/28/2025 3:10 PM [facility] Internal Medicine 7AM-7PM & 7PM-7AM: EpicChat or page through On-[employer]. This note is dictated with the use of M*Modal. Please note that this dictation was completed with computer voice recognition software. Quite often unanticipated grammatical, syntax, homophones, and other interpretive errors are inadvertently transcribed by the computer software. Please disregard these errors. Please excuse any errors that have escaped final proofreading. CONCHA Cowart 02/28/25 1500 Physician Attestation I, Gm Cerrato MD, personally performed a face to face diagnostic evaluation on this patient. I have reviewed the note authored by the advance practice provider including history, review of systems,physical examination,medical decision making and agree with the assessment and plan as written. I have seen and evaluated the patient, I have repeated the harper portions of the physical exam and concur with the SARAH findings. I have reviewed all laboratory findings and imaging reports/films. I agree with the plan as noted. Patient's was admitted with pubic bone fracture. Patient was managed conservatively per Orthopedic recommendation. Patient is being discharged in stable condition to SNF. [facility] of care note * Plan of Care - S. Cynthia Gaston RN - 02/28/2025 11:02 AM EDT Problem: Pain Goal: Patient goal is pain score less than 4, able to rest, and participant in treatment plan as appropriate Description: INTERVENTIONS: 1. Encourage patient or legal admissions representative to report early pain and ask for pain medicine when needed 2. Assess pain using appropriate pain scale and include the scale used when documenting 3. Administer analgesics based on type and severity of pain and evaluate response within appropriate time frame 4. Implement non-pharmacological measures as appropriate and evaluate response 5. Consider cultural and social influences on pain and pain management 6. Notify LIP if interventions ineffective or patient reports new pain 7. Monitor vital signs including pulse ox, end-tidal CO2 based on pain intervention 8. Reassess pain per policy 9. Teach patient or legal admissions representative interventions for comforting Outcome: Progressing Note: Evaluation of progress towards goal: Pt able to report pain according to 0/10 pain scale. Medicating patient for pain per orders. Problem: Safety Goal: Patient will be injury free during hospitalization Description: INTERVENTIONS: 1. Assess patient's risk for falls and implement fall prevention plan of care per policy 2. Provide and maintain a safe environment 3. Proper use of double Identifiers 4. Medication administration using the 5 rights 5. Hand hygiene 6. Specimens are labeled at the bedside 7. Instruct patient/ patient admissions representative about use of safety devices 8. Include patient/ patient admissions representative in decisions related to safety Outcome: Progressing Note: Evaluation of progress towards goal: Safety measures initiated/maintained. Pt remains safe from harm/injury/falls Problem: Infection Goal: Absence of infection during hospitalization Description: INTERVENTIONS 1. Assess and monitor for signs and symptoms of infection. 2. Monitor lab/diagnostic results. 3. Monitor all insertion sites i.e., indwelling lines, tubes and drains. 4. Monitor endotracheal (as able) and nasal secretions for changes in amount and color. 5. Administer medications as ordered. 6. Instruct and encourage patient and family to use good hand hygiene technique. 7. Identify and instruct patient/patient admissions representative in use of appropriate isolation precautionsfor identified infection/symptoms. 8. Provide and discuss with patient/patient admissions representative on educational MDRO sheet. 9. Encourage and monitor nutritional status daily and consult broadcast maintenance engineer if indicated. 10. Implement neutropenic guidelines as needed. Outcome: Progressing Note: Evaluation of progress towards goal: Pt afebrile at this time, continue to monitor for signs infection Problem: Knowledge Deficit Goal: Patient/patient admissions representative demonstrates understanding of disease process, treatment plan,medications, and discharge instructions Description: INTERVENTIONS 1. Complete learning assessment and assess knowledge base 2. Provide teaching at level of understanding 3. Provide teaching via preferred learning method(s) Outcome: Progressing Note: Evaluation of progress towards goal: Evaluate, educate, reinforce learning needs and gaps t/oshift. Problem: Discharge Planning Goal: Discharge to post-acute care, other facility, or home with appropriate resources Description: Patient's goal is: INTERVENTIONS 1. Conduct assessment to determine patient/family and health care team treatment goals, and need for post-acute services based on payer coverage, community resources, and patient preferences, and barriers to discharge 2. Coordinate with Social work, Care Navigation, and Utilization Review to arrange appropriate level of services according to patient's needs based on patient preference and payer coverage in collaboration with the physician and health care team 3. Address psychosocial, clinical, and financial barriers to discharge as identified in assessment in conjunction with the patient/family and health care team 4. Consult appropriate ancillary services (i.e.. PT/OT/ST, etc) as needed 5. Communicate with and update the patient/family, physician, and health care team regarding progress on the discharge plan 6. Identify discharge learning needs (meds, wound care, etc). 7. Arrange for needed discharge transportation as appropriate Outcome: Progressing Note: Evaluation of progress towards goal: Continue to monitor t/o shift to assess for discharge needs. Problem: Moderate - High Risk Fall Score Description: Zhong Fall Score of =/> 25 or indicated by [facility] Re[facility] Assessment Goal: Patient should be free from fall Description: Interventions: 1. [place] to environment 2. Hourly rounds addressing the 4 P's (Pain, Positioning, Possessions, Potty) 3. Clear area of hazards (spills, clutter, electrical cords, unnecessary equipment) 4. Place equipment (bed & TV controls, call light, phone, urinal) within reach 5. Encourage patient to wear glasses and hearing aides as appropriate 6. Maintain bed in lowest position 7. Lock wheels on bed/wheelchair 8. Provide adequate lighting, including night light 9. Assess need for additional bedding, food/fluids, pain med's prior to sleep/routinely 10. Provide gripper slippers or personal non-skid footwear 11. Teach patient and patient admissions representative to maintain environment for safety and engage in all aspects of fall prevention program 12. Remind patient to call for help before getting out of bed 13. Initiate bed/chair/exit alarms supportive devices as appropriate, (chair wedge, no-skid floor mat, raised edge mattress, hip protectors) 14. Locate patient bed assignment for optimal visualization 15. Evaluate and identify Safe Patient Handling Equipment needs 16. Provide supervision when out of bed or chair 17. Utilize gait belt as needed to assist with ambulation 18. Place adaptive equipment (cane, walker) within reach 19. Request patient admissions representative bring adaptive equipment/mobility aids from home or obtain and provide as needed 20. Consult pharmacy regarding effects of med's affecting mobility, cognition, and alternatives 21. Obtain physician order for PT if risk factors associated with mobility are present 22. Obtain physician order for OT as appropriate 23. Utilize diversional activities 24. Educate patient and patient admissions representative how to maintain a safe environment during visitationtimes (notify nurse prior to leaving bedside) 25. Consider appropriateness of medical or non-biomedical specialist 26. Set up voiding schedule as appropriate (every 2 hours) Outcome: Progressing Note: Evaluation of progress towards goal: Pt remains free from falls or accidental injury during stay. Fall prevention measures in place. Hourly rounding per RN and maintained. [facility] Miscellaneous Notes* Plan of Care - Ten Gaston RN - 02/28/2025 11:02 AM EDT Problem: Pain Goal: Patient goal is pain score less than 4, able to rest, and participant in treatment plan as appropriate Description: INTERVENTIONS: 1. Encourage patient or legal admissions representative to report early pain and ask for pain medicine when needed 2. Assess pain using appropriate pain scale and include the scale used when documenting 3. Administer analgesics based on type and severity of pain and evaluate response within appropriate time frame 4. Implement non-pharmacological measures as appropriate and evaluate response 5. Consider cultural and social influences on pain and pain management 6. Notify LIP if interventions ineffective or patient reports new pain 7. Monitor vital signs including pulse ox, end-tidal CO2 based on pain intervention 8. Reassess pain per policy 9. Teach patient or legal admissions representative interventions for comforting Outcome: Progressing Note: Evaluation of progress towards goal: Pt able to report pain according to 0/10 pain scale. Medicating patient for pain per orders. Problem: Safety Goal: Patient will be injury free during hospitalization Description: INTERVENTIONS: 1. Assess patient's risk for falls and implement fall prevention plan of care per policy 2. Provide and maintain a safe environment 3. Proper use of double Identifiers 4. Medication administration using the 5 rights 5. Hand hygiene 6. Specimens are labeled at the bedside 7. Instruct patient/ patient admissions representative about use of safety devices 8. Include patient/ patient admissions representative in decisions related to safety Outcome: Progressing Note: Evaluation of progress towards goal: Safety measures initiated/maintained. Pt remains safe from harm/injury/falls Problem: Infection Goal: Absence of infection during hospitalization Description: INTERVENTIONS 1. Assess and monitor for signs and symptoms of infection. 2. Monitor lab/diagnostic results. 3. Monitor all insertion sites i.e., indwelling lines, tubes and drains. 4. Monitor endotracheal (as able) and nasal secretions for changes in amount and color. 5. Administer medications as ordered. 6. Instruct and encourage patient and family to use good hand hygiene technique. 7. Identify and instruct patient/patient admissions representative in use of appropriate isolation precautionsfor identified infection/symptoms. 8. Provide and discuss with patient/patient admissions representative on educational MDRO sheet. 9. Encourage and monitor nutritional status daily and consult broadcast maintenance engineer if indicated. 10. Implement neutropenic guidelines as needed. Outcome: Progressing Note: Evaluation of progress towards goal: Pt afebrile at this time, continue to monitor for signs infection Problem: Knowledge Deficit Goal: Patient/patient admissions representative demonstrates understanding of disease process, treatment plan,medications, and discharge instructions Description: INTERVENTIONS 1. Complete learning assessment and assess knowledge base 2. Provide teaching at level of understanding 3. Provide teaching via preferred learning method(s) Outcome: Progressing Note: Evaluation of progress towards goal: Evaluate, educate, reinforce learning needs and gaps t/oshift. Problem: Discharge Planning Goal: Discharge to post-acute care, other facility, or home with appropriate resources Description: Patient's goal is: INTERVENTIONS 1. Conduct assessment to determine patient/family and health care team treatment goals, and need for post-acute services based on payer coverage, community resources, and patient preferences, and barriers to discharge 2. Coordinate with Social work, Care Navigation, and Utilization Review to arrange appropriate level of services according to patient's needs based on patient preference and payer coverage in collaboration with the physician and health care team 3. Address psychosocial, clinical, and financial barriers to discharge as identified in assessment in conjunction with the patient/family and health care team 4. Consult appropriate ancillary services (i.e.. PT/OT/ST, etc) as needed 5. Communicate with and update the patient/family, physician, and health care team regarding progress on the discharge plan 6. Identify discharge learning needs (meds, wound care, etc). 7. Arrange for needed discharge transportation as appropriate Outcome: Progressing Note: Evaluation of progress towards goal: Continue to monitor t/o shift to assess for discharge needs. Problem: Moderate - High Risk Fall Score Description: Zhong Fall Score of =/> 25 or indicated by [facility] Assessment Goal: Patient should be free from fall Description: Interventions: 1. [place] to environment 2. Hourly rounds addressing the 4 P's (Pain, Positioning, Possessions, Potty) 3. Clear area of hazards (spills, clutter, electrical cords, unnecessary equipment) 4. Place equipment (bed & TV controls, call light, phone, urinal) within reach 5. Encourage patient to wear glasses and hearing aides as appropriate 6. Maintain bed in lowest position 7. Lock wheels on bed/wheelchair 8. Provide adequate lighting, including night light 9. Assess need for additional bedding, food/fluids, pain med's prior to sleep/routinely 10. Provide gripper slippers or personal non-skid footwear 11. Teach patient and patient admissions representative to maintain environment for safety and engage in all aspects of fall prevention program 12. Remind patient to call for help before getting out of bed 13. Initiate bed/chair/exit alarms supportive devices as appropriate, (chair wedge, no-skid floor mat, raised edge mattress, hip protectors) 14. Locate patient bed assignment for optimal visualization 15. Evaluate and identify Safe Patient Handling Equipment needs 16. Provide supervision when out of bed or chair 17. Utilize gait belt as needed to assist with ambulation 18. Place adaptive equipment (cane, walker) within reach 19. Request patient admissions representative bring adaptive equipment/mobility aids from home or obtain and provide as needed 20. Consult pharmacy regarding effects of med's affecting mobility, cognition, and alternatives 21. Obtain physician order for PT if risk factors associated with mobility are present 22. Obtain physician order for OT as appropriate 23. Utilize diversional activities 24. Educate patient and patient admissions representative how to maintain a safe environment during visitationtimes (notify nurse prior to leaving bedside) 25. Consider appropriateness of medical or non-biomedical specialist 26. Set up voiding schedule as appropriate (every 2 hours) Outcome: Progressing Note: Evaluation of progress towards goal: Pt remains free from falls or accidental injury during stay. Fall prevention measures in place. Hourly rounding per RN and maintained. * Discharge Planning Note - Juhi Estrada - 02/28/2025 10:55 AM EDT DISCHARGE PLANNING NOTE Referral sent to [facility] (P# ; F# ) * Discharge Planning Note - Brinda Wilhelm RN - 02/28/2025 10:27 AM EDT 02/28/25 1023 Patient Information Initial Pre-Hospitalization Assessment Completed? Completed Primary Caregiver Self Support System Family Members Discharge Planning Living Arrangements Alone Type of Residence Private residence Private Residence 1 story Can patient reside on one level? Yes Home Care Services No Does The Patient Have Existing Home DME? No Income Information Income Information Retired/Pension/Social Security IP Hunger/Food Insecurity Screening Within the past 12 months we worried whether our food would run out before we got money to buy more. Never True Within the past 12 months the food we bought just didn't last and we didn't have money to get more.Never True Hunger Screening Complete? Yes Pt. Eligible for Food / Voucher No If Eligible: Received Food Box Not Offered to Patient Warm Handoff Complete Caregiver/Family Member Caregiver/Family Member Kiya, daughter Caregiver/Family Member Involved with Current Plan of Care Yes Caregiver/Family Member in Agreement with Current Plan of Care Yes Patient/Caregiver Goals Patient/Caregiver Goals Group Home Care Skilled [facility] Care Skilled Care (Short Term) Services Requested Has the case been escalated? No Patient expects to be discharged to: SNF Does the patient wish to have family/friend/caregiver involved in their discharge planning? Yes Does the patient plan to return home to a community setting? Yes Has the family/friend/caregiver been assessed to determine their readiness, skills, capacities, andresources to provide post hospital care? Yes, Caregiver Assessment Completed Discharge Disposition SNF SNF Name ([facility] tasked w/ referral to [facility] [place].) SNF Accepted? (Referral sent) Does the patient need discharge transportation arranged? Yes Transportation Arranged [place] Patient choice offered Patient declined List Provided Patient declined Patient Declined Other (must state reason) (Patient and daughter requested [facility]. Kiya daughter states she has another family in the facility and would like to referral sent. Patient in agreement with plan.) DC Planning Complete Discharge Milestones Yes DISCHARGE PLANNING NOTE CN met with patient at bedside. kevin Huertas on speaker phone during conversation. Patient lived home alone prior to hospital admission. Patient was able to perform ADLs per self, drive, and is retired. Patient follows w/ Dr. Hokos and prefers [facility] pharmacy. Discharge plan discussed w/ patient and daughter. Patient/daughter declined SNF list, would like referral sent to [facility] [place]. kevin Huertas states she has family member currently in the facility and would like referral sent. Patient in agreement with SNF choice. [facility] tasked w/ referral to [facility] [place]. Patient has traditional Medicare, requiring 3-midnight inpatient qualifying stay. Inpatient order written 02/25/25 at 12:13pm. Patient has met 3- midnight qualifying stay and can be discharged once facility can accept and medically ready. Discharge plan: SNF Referral sent to [facility] [place]. - Brinda Wilhelm RN 02/28/25 10:32 AM Update: CN called and left voicemail for florecita Andres. Awaiting call back to clarify facility acceptance. - Brinda Wilhelm RN 02/28/25 1:36 PM Update: Jennifer Andres [facility] in [place] can accept patient today. Will need rapid covid test. CN to call once transport time confirmed. Nursing and provider notified. [facility] [address] [place] [id number] Call report Fax Covid result & CRF - Brinda Wilhelm RN 02/28/25 2:46 PM * PT/OT/SYSTEM ARCHITECT - Ambika Calderon, PT - 02/28/2025 8:25 AM EDT Physical Therapy Treatment, Co-Treatment Discharge Recommendations for Safe Patient Transition PT Discharge Disposition Recommendation: Post acute - moderate PT Post Acute Moderate Rehab Needs: Tolerate 1-2 hrs of therapy 3-5 days/wk 6 Clicks: Basic Mobility Turning from your back to your side while in a flat bed without using bed rails?: A little Moving from lying on your back to sitting on side of flat bed without using bed rails?: A little Moving to and from bed to a chair (including w/c)?: A little Standing up from a chair using your arms (e.g. w/c or bedside chair)?: A little To walk in hospital room?: A little Climbing 3-5 steps with a railing?: A lot Scoring 6 Clicks: Basic Mobility Raw Score: 17 CMS G Code Modifier: CK Therapy Plan Need for skilled Physical Therapy to address deficits in functional mobility due to a status decline resulting from recent medical condition. Pt resting in bed upon arrival and agreed to PT and OT. Pt performed a few exercises in bed and needed CGA to get to edge of bed. Pt then was able to stand up with CGA for safety and then used rolling walker to ambulate 40 ft with walker and WBAT. Pt with increased pain the more she was standing and on her feet. CGA/min to help get back into bed due to pain in R LE. Pt back resting in bed and breakfast tray arrived. Call light within reach and all needs met upon departure. 02/28/25 0735 LE Supine LE supine exercises performed? Yes Ankle pumps 10 Gluteal sets 10 Quad sets 10 Supine heel slides 5 Other to improve mobility/strength for ease of gait Assessment Patient Assessment Patient Response to Treatment: Progressing toward goals Mood/Affect: Appropriate for circumstances Rehab Prognosis: Good, With continued PT status post acute discharge Visit RN Communication: Yes Medical Record Reviewed: Yes PT Type of Visit: Treatment, Co-Treatment Precautions Activity: as tolerated Equipment: rollign walker, nonskid socks, gait belt Weight Bearing Status: WBAT Telemetry/Digital Editor: Yes Oxygen Order : room air Subjective Physical Therapy Comments: Pt reports that at rest her pain is fine, her pain increases when she isstanding and walking. Pain Assessment Pain Assessment: 0-10 Pain Score: 8 Pain Location: Pelvis Hearing / Speech / Vision Hearing: Within Functional Limits Speech: Within Functional Limits Cognition Overall Cognitive Status: Within Functional Limits Orientation Level: Oriented X4 Sensation Overall Sensation Status: (no c/o numbness or tingiing today) Bed Mobility Supine to Sit: Contact guard assist Sit to Supine: Contact guard assist, Min assist Other: head of bed needed elevated and used bedrail for support, some guidance for R LE back into bed due to pain. Transfers Sit to Stand: Contact guard assist, Verbal cues Stand to Sit: Contact guard assist, Verbal cues Other: cues for hand placement with transfers Gait Gait Assistance: Contact guard assist Assistive Device: Rolling walker Gait Distance: 40 ft with antalgia and decreased WB into R LE Limiting Factors to Gait: Fatigue, Weakness, Pain Other: decreased stride and neris noted Balance Sitting Balance: Static: Good Sitting Balance: Dynamic: Fair Standing Balance: Static: Fair Standing Balance: Dynamic: Fair Other: with us of walker for gait and standing balance Activity Tolerance Endurance: Tolerates <30 minutes activity WITHOUT vital sign changes Plan Physical Therapy Care Plan Physical Therapy Care Plan (Active) Template: PT - Physical Therapy Problem: Activity Tolerance Dates: Start: 02/26/25 Disciplines: PT Goal: Tolerate 30 minutes of activity WITH rest breaks Dates: Start: 02/26/25 Expected End: 03/07/25 Description: Goal Description: Disciplines: PT Outcomes Date/Time User Outcome 02/27/25 1057 Sarah Beth Kasper PTA Progressing Problem: Bed Mobility Dates: Start: 02/26/25 Disciplines: PT Goal: Patient will perform bed mobility with Supervision Dates: Start: 02/26/25 Expected End: 03/07/25 Description: Goal Description: Disciplines: PT Outcomes Date/Time User Outcome 02/28/25823 Ambika Calderon, PT Progressing 02/27/25 Mirian Kasper PTA Progressing Goal Note filed on 02/28/25823 by Ambika Calderon PT Evaluation of progress towards goal: CGA today, but slight min for sit to supine Problem: Gait Dates: Start: 02/26/25 Disciplines: PT Goal: Patient will perform gait with Stand By Assist Dates: Start: 02/26/25 Expected End: 03/07/25 Description: Pt will be able to ambulate 150 ft with walker and stand by assist to safely navigate household distances. Disciplines: PT Outcomes Date/Time User Outcome 02/28/25823 Ambika Calderon, PT Progressing 02/27/25 Mirian Kasper PTA Progressing Goal Note filed on 02/28/25823 by Ambika Calderon PT Evaluation of progress towards goal: CGA with rolling walker 40 feet today on level surfaces Problem: Stairs/Curb Dates: Start: 02/26/25 Disciplines: PT Goal: Patient will perform stairs/curb with Contact Guard Dates: Start: 02/26/25 Expected End: 03/07/25 Description: Pt will be able to ascend 5 steps with HR on L to safely enter household upon hospitaldischarge. Disciplines: PT Problem: Standing Balance Dates: Start: 02/26/25 Disciplines: PT Goal: Improve balance to good Dates: Start: 02/26/25 Expected End: 03/07/25 Description: Static Dynamic Disciplines: PT Outcomes Date/Time User Outcome 02/27/25 Mirian Kasper PTA Progressing Problem: Transfers Dates: Start: 02/26/25 Disciplines: PT Goal: Patient will perform transfers with Supervision Dates: Start: 02/26/25 Expected End: 03/07/25 Description: Goal Description: Disciplines: PT Outcomes Date/Time User Outcome 02/28/25823 Ambika Calderon, PT Progressing 02/27/25 Mirian Kasper PTA Progressing Goal Note filed on 02/28/25823 by Ambika Calderon PT Evaluation of progress towards goal: CGA Physical Therapy Care Plan (Resolved) There are no resolved problems. Principal Problem: Pubic bone fracture (CMS-HCC) Active Problems: Hypertension Paroxysmal atrial fibrillation (CMS-HCC) Presence of cardiac pacemaker- MDT Essential tremor Acquired hypothyroidism * PT/OT/SYSTEM ARCHITECT - Elva Bucio OTR/L - 02/28/2025 8:04 AM EDT Occupational Therapy Evaluation (completed with PT in order to maximize patient's functional status with OT assessing ADLS) Discharge Recommendations for Safe Patient Transition OT Discharge Disposition Recommendation: Post acute - moderate OT Post Acute Moderate Rehab Needs: Recommend moderate intensity rehab, Tolerate 1-2 hrs of therapy3-5 days/wk, Subacute or chronic functional impairment Current Impairments Informing Therapy Recommendation: Ambulation status/safety, Fall risk, ADL status, Endurance level Floor Scrubber Support for-: Mobility Deficits, ADL Deficits 6 Clicks: Daily Activity Putting on and taking off regular lower body clothing?: A lot Bathing (including washing, rinsing, drying)?: A lot Toileting, which includes using toilet, bedpan or urinal?: A lot Putting on and taking off regular upper body clothing?: A little Taking care of personal grooming such as brushing teeth?: A little Eating meals?: None Scoring Daily Activity Raw Score: 16 CMS G Code Modifier: CK Therapy Plan/HPI/occupational profile throughout eval Need for skilled Occupational Therapy to address deficits in ADL independence and functional mobility due to a status decline resulting from status post fall and pubic bone fracture.a moderate complex eval was completed. Past Surgical History: Procedure Laterality Date BACK SURGERY 2011 CAGE BLEPHAROPLASTY OPHTH Bilateral 10/31/2017 Performed by Daksha Bull MD at [facility] BREAST BIOPSY Left 1960s BENIGN, cyst/tumor, in her 20's CARDIAC PACEMAKER PLACEMENT Left CATARACT EXTRACTION 2007 COLONOSCOPY 06/28/2016 COLONOSCOPY N/A 01/19/2020 Performed by Fermin Gamez MD at [facility] ENDOSCOPY Coronary angiogram and right heart and left ventricular gram/pressure N/A 09/09/2018 Performed by Solomon Piper MD at [facility] CARDIAC CATH LABS EGD with bx N/A 02/28/2020 Performed by Fermin Gamez MD at [facility] ENDOSCOPY EP - Device DC PPM Left 11/04/2018 Performed by Lori Yo MD at [facility] HRC (EP) FOOT SURGERY Bilateral 1990s little toes pins in toes, bones shaved down on outsides of both feet MINIMALLY INVASIVE MITRAL VALVE REPAIR 28MM FUTURE RING , MINIMALLY INVASIVE TRICUSPID VALVE [id number] CONTOUR 3D RING/ BHARAT N/A 10/30/2018 Performed by Edin Lima MD at [facility] SPINE SURGERY THYROIDECTOMY, PARTIAL TONSILLECTOMY child WRIST SURGERY Left Past Medical History: Diagnosis Date Abdominal cramping [...] wears one lense in the left eye OT Treatment/Interventions: ADL retraining, Functional transfer training, UE strengthening/ROM, Endurance training, Patient/family training, Balance, Equipment eval/education, Home management, Functional activities, Compensatory technique education OT Frequency: 3-4days/week OT Duration: 10 days Assessment Patient Assessment Therapy Problem List: Abnormal posture, Decreased ADL status, Decreased balance, Decreased endurance, Decreased high-level ADLs, Decreased mobility, Decreased safe judgement during ADL, Decreased LE ROM, Decreased LE strength Patient Response to Treatment: Tolerated evaluation without adverse reaction Mood/Affect: Appropriate for circumstances Rehab Prognosis: Good, With continued OT status post acute discharge Visit RN Communication: Yes Medical Record Reviewed: Yes OT Type of Visit: Evaluation (completed with PT in order to maximize patient's functional status with OT assessing ADLS) Precautions Activity: early mobility pass, OK to eval per Cynthia KONG Equipment: RW, gait belt, nonskid socks. Weight Bearing Status: WBAT on RLE Pacemaker/ICD: Pacemaker Oxygen Used: room air Other: Mildly displaced R pubic bone fracutre, nondiscplaced fracture of ischial tuberosity. Per ortho, patient can be WBAT on RLE. Subjective Occupational Therapy Comments: I want to go to [place] Pain Assessment Pain Assessment: 0-10 Pain Score: 9 Pain Location: Pelvis Pain Orientation: Right, Left Pain Intervention(s): Repositioned, Emotional support Home Living Type of Home: House Home Layout: One level, Stairs to enter with rails Stairs to Enter: 5 Hand Rails: Left Bathroom Shower/Tub: Walk-in shower Bathroom Toilet: Raised Bathroom Equipment: Built-in shower seat, Hand-held shower Bathroom Accessibility: Accessible via walker Home Equipment: Rolling walker Prior Function Lives With: Alone (spouse recently in August) Receives Help From: Family (daughter is a nurse and lives close by) Level of Mobility: Independent with ADLs and functional transfers or gait (ambulated without deviceprior to fall) Homemaking Assistance: Independent Other: rupali prior to admit, still driving, completed the yard work ADL / IADL Hand Dominance: Right Grooming Assistance: Contact guard assist Bathing/Showering Assistance: Min assist Toilet/Commode Assistance: Min assist, Mod assist UE Dressing Assistance: Min assist (for gown) LE Dressing Assistance: Mod assist Footwear Assistance: Total assist Footwear Deficit: R sock, L sock Other: ed on role and goals of OT, agreeable to eval. ADL assessment is based on clinical judgementand obseration of pt's ability to complete ROM, strength, endurance, sit and stand balance and funtional mobility Home Management - IADL Other: ed on role and goals of OT, agreeable to eval. ADL assessment is based on clinical judgementand obseration of pt's ability to complete ROM, strength, endurance, sit and stand balance and funtional mobility Hearing / Speech / Vision Hearing: Within Functional Limits Speech: Within Functional Limits Current Vision: Wears contacts (wears one contact in left eye) Cognition Orientation Level: Oriented X4 Sensation Overall Sensation Status: (denies numbness and tingling) Bed Mobility Supine to Sit: Stand by assist (HOB elevated and use of bed rail, increased time for completion) Sit to Supine: Min assist Other: returned to supine at end of session , needs with inreach, ed to use call light Transfers Sit to Stand: Contact guard assist Stand to Sit: Contact guard assist Toilet Transfers: (declines need) Other: completes with RW, cues for hand placement Balance Other: functional mobility completed with RW and CGA throughout room in order to increase strength and endurance as pt prepares for returns to community RUE Assessment: (grossly 4/5) LUE Assessment: (grossly 4/5) Activity Tolerance Endurance: Tolerates <30 minutes activity WITHOUT vital sign changes Plan Occupational Therapy Care Plan Occupational Therapy Care Plan (Active) Template: OT - Occupational Therapy Problem: Activity Tolerance Dates: Start: 02/28/25 Disciplines: OT Goal: Tolerate > 30 minutes of activity WITH rest breaks Dates: Start: 02/28/25 Expected End: 03/09/25 Description: Goal Description:patient to engage in activities of choice with out changes in vitals in order to promote return to prior level of function Disciplines: OT Problem: Other (Customize) Dates: Start: 02/28/25 Disciplines: OT Goal: Improve Dates: Start: 02/28/25 Expected End: 03/09/25 Description: Goal Description:Patient to increase IND in ADls to supervision with use of AE as needed including toileting tasks in order to promote return to prior level of function Disciplines: OT Problem: Standing Balance Dates: Start: 02/28/25 Disciplines: OT Goal: Improve balance to good Dates: Start: 02/28/25 Expected End: 03/09/25 Description: Patient to increase standing balance to good in order to increase IND in ADLS and lower body dressing tasks Disciplines: OT Occupational Therapy Care Plan (Resolved) There are no resolved problems. Principal Problem: Pubic bone fracture (CMS-HCC) Active Problems: Hypertension Paroxysmal atrial fibrillation (CMS-HCC) Presence of cardiac pacemaker- MDT Essential tremor Acquired hypothyroidism * Plan of Care - Merry Cardoza RN - 02/28/2025 2:07 AM EDT Problem: Pain Goal: Patient goal is pain score less than 4, able to rest, and participant in treatment plan as appropriate Description: INTERVENTIONS: 1. Encourage patient or legal admissions representative to report early pain and ask for pain medicine when needed 2. Assess pain using appropriate pain scale and include the scale used when documenting 3. Administer analgesics based on type and severity of pain and evaluate response within appropriate time frame 4. Implement non-pharmacological measures as appropriate and evaluate response 5. Consider cultural and social influences on pain and pain management 6. Notify LIP if interventions ineffective or patient reports new pain 7. Monitor vital signs including pulse ox, end-tidal CO2 based on pain intervention 8. Reassess pain per policy 9. Teach patient or legal admissions representative interventions for comforting Outcome: Progressing Note: Evaluation of progress towards goal: Pain controlled w/ current regimen. Pt states no pain atrest, rates 8-9 when ambulatory. Problem: Safety Goal: Patient will be injury free during hospitalization Description: INTERVENTIONS: 1. Assess patient's risk for falls and implement fall prevention plan of care per policy 2. Provide and maintain a safe environment 3. Proper use of double Identifiers 4. Medication administration using the 5 rights 5. Hand hygiene 6. Specimens are labeled at the bedside 7. Instruct patient/ patient admissions representative about use of safety devices 8. Include patient/ patient admissions representative in decisions related to safety Outcome: Progressing Note: Evaluation of progress towards goal: Remains free from injury. SAfety precautions maintained. Problem: Knowledge Deficit Goal: Patient/patient admissions representative demonstrates understanding of disease process, treatment plan,medications, and discharge instructions Description: INTERVENTIONS 1. Complete learning assessment and assess knowledge base 2. Provide teaching at level of understanding 3. Provide teaching via preferred learning method(s) Outcome: Progressing Note: Evaluation of progress towards goal: Plan of care reviewed, no questions/concerns voiced. Allinterventions explained prior to initiating. Problem: Moderate - High Risk Fall Score Description: Zhong Fall Score of =/> 25 or indicated by [facility] Assessment Goal: Patient should be free from fall Description: Interventions: 1. [place] to environment 2. Hourly rounds addressing the 4 P's (Pain, Positioning, Possessions, Potty) 3. Clear area of hazards (spills, clutter, electrical cords, unnecessary equipment) 4. Place equipment (bed & TV controls, call light, phone, urinal) within reach 5. Encourage patient to wear glasses and hearing aides as appropriate 6. Maintain bed in lowest position 7. Lock wheels on bed/wheelchair 8. Provide adequate lighting, including night light 9. Assess need for additional bedding, food/fluids, pain med's prior to sleep/routinely 10. Provide gripper slippers or personal non-skid footwear 11. Teach patient and patient admissions representative to maintain environment for safety and engage in all aspects of fall prevention program 12. Remind patient to call for help before getting out of bed 13. Initiate bed/chair/exit alarms supportive devices as appropriate, (chair wedge, no-skid floor mat, raised edge mattress, hip protectors) 14. Locate patient bed assignment for optimal visualization 15. Evaluate and identify Safe Patient Handling Equipment needs 16. Provide supervision when out of bed or chair 17. Utilize gait belt as needed to assist with ambulation 18. Place adaptive equipment (cane, walker) within reach 19. Request patient admissions representative bring adaptive equipment/mobility aids from home or obtain and provide as needed 20. Consult pharmacy regarding effects of med's affecting mobility, cognition, and alternatives 21. Obtain physician order for PT if risk factors associated with mobility are present 22. Obtain physician order for OT as appropriate 23. Utilize diversional activities 24. Educate patient and patient admissions representative how to maintain a safe environment during visitationtimes (notify nurse prior to leaving bedside) 25. Consider appropriateness of medical or non-biomedical specialist 26. Set up voiding schedule as appropriate (every 2 hours) Outcome: Progressing Note: Evaluation of progress towards goal: Remains free from falls. Appropriate fall precautions maintained. Pt calls for assistance to get OOB. * Plan of Care - Rosario Weller RN - 02/27/2025 5:24 PM EDT Problem: Safety Goal: Patient will be injury free during hospitalization Description: INTERVENTIONS: 1. Assess patient's risk for falls and implement fall prevention plan of care per policy 2. Provide and maintain a safe environment 3. Proper use of double Identifiers 4. Medication administration using the 5 rights 5. Hand hygiene 6. Specimens are labeled at the bedside 7. Instruct patient/ patient admissions representative about use of safety devices 8. Include patient/ patient admissions representative in decisions related to safety Outcome: Progressing Note: Evaluation of progress towards goal: Safety maintained, remains injury free this hospital stay. * Plan of Care - Hua Lawler RPH - 02/27/2025 10:43 AM EDT Problem: Medication Description: If medication is necessary, use low-risk medication that does not interfere with what matters to the older adult patient, mobility, or mentation across settings of care. Goal: Patient will be screened for high-risk medications once per stay Description: Interventions: 1. Pharmacist to perform medication review to screen for high-risk medications 2. Pharmacist to identify high-risk medications in the Plan of Care note 3. Pharmacist to make recommendations for follow-up in the Plan of Care note, if warranted Outcome: Completed Note: Medications individually and in combination may interfere with What Matters, Mentation, and safe Mobility because of the increased risk of confusion, delirium, unsteadiness and falls. Profile review indicates this patients has active orders for benzodiazepines (clonazepam). Chart review also s hows no change in renal function. * PT/OT/SYSTEM ARCHITECT - Sarah Beth Kasper PTA - 02/27/2025 9:34 AM EDT Physical Therapy Treatment Discharge Recommendations for Safe Patient Transition PT Discharge Disposition Recommendation: Post acute - moderate PT Post Acute Moderate Rehab Needs: Recommend moderate intensity rehab Floor Scrubber Support for-: Mobility Deficits, ADL Deficits 6 Clicks: Basic Mobility Turning from your back to your side while in a flat bed without using bed rails?: A little Moving from lying on your back to sitting on side of flat bed without using bed rails?: A little Moving to and from bed to a chair (including w/c)?: A little Standing up from a chair using your arms (e.g. w/c or bedside chair)?: A little To walk in hospital room?: A little Climbing 3-5 steps with a railing?: A lot Scoring 6 Clicks: Basic Mobility Raw Score: 17 CMS G Code Modifier: CK PT Treatment/Interventions: ADL retraining, Functional transfer training, LE strengthening/ROM, Endurance training, Stair training, Balance, Bed mobility, Gait training PT Frequency: 5-6days/week PT Duration: 10 days Assessment Patient Assessment Therapy Problem List: Abnormal posture, Decreased ADL status, Decreased balance, Decreased endurance, Decreased high-level ADLs, Decreased mobility, Decreased safe judgement during ADL, Decreased LE ROM, Decreased LE strength Patient Response to Treatment: Slow progress, decreased activity tolerance, Progressing toward goals Mood/Affect: Appropriate for circumstances Rehab Prognosis: Good, With continued PT status post acute discharge Visit RN Communication: Yes Medical Record Reviewed: Yes PT Type of Visit: Treatment Precautions Activity: Early mobility: pass. Appropriate at to tx per RNRosario. Equipment: RW, gait belt, nonskid socks. Weight Bearing Status: WBAT on RLE Telemetry/Digital Editor: Yes Oxygen Used: Room air. Other: Mildly displaced R pubic bone fracutre, nondiscplaced fracture of ischial tuberosity. Per ortho, patient can be WBAT on RLE. Pain Assessment Pain Assessment: 0-10 Pain Score: 8 Pain Location: Pelvis Pain Orientation: Right, Left Pain Radiating Towards: R foot Pain Descriptors: Sharp, Discomfort, Sore Pain Intervention(s): Repositioned, Ambulation/increased activity, Distraction, Emotional support Hearing / Speech / Vision Hearing: Within Functional Limits Speech: Within Functional Limits Bed Mobility Supine to Sit: Min assist, Right (HOB elevated; Assist for upper body progression.) Sit to Supine: Min assist, Right (HOB flat; Assist for LE progression.) Other: Patient performed bed mobility of supine to/from seated positions, min assist dependent on transition moving into. Verbal and tactile cues expressed of body mechanics and use of bedrails to assist in transition ease. (Extended time required to complete, patient goal oriented to attempt majority of transition on own.) Transfers Sit to Stand: Min assist (RW.) Stand to Sit: Min assist Toilet Transfers: Min assist Other: Patient performed multiple sit to stand transfers from various surfaces, min assist with ample amount of time required. Verbal cues expressed of proper hand placement for improved transfer ease and safety. Gait Base of Support: Narrow Pattern: Decreased neris, R Decreased heel strike, L Decreased heel strike, R Decreased foot clearance, L Decreased foot clearance, Forward trunk, R Decreased stance time Gait Assistance: Contact guard assist Assistive Device: Rolling walker Gait Distance: 15' x2 (Bed to/from bathroom.) Limiting Factors to Gait: Fatigue, Weakness, Decreased safety, Pain Included Uneven Surface: Yes 2 Turns: Yes Other: Patient gait trained with use of RW as AD, CGA for patient safety. Verbal cues expressed of increased step length and upright posture for improve gait pattern and safety in environment. (Slow steady neris noted.) Balance Sitting Balance: Static: Good Sitting Balance: Dynamic: Fair (+) Standing Balance: Static: Fair Standing Balance: Dynamic: Fair (-) Other: B UE support required throughout standing tasks to assist patient in maintaining balance during standing tasks. No increased unsteadiness noted to cause LOB to occur. Activity Tolerance Endurance: Tolerates >30 minutes activity with rest breaks Other: Rest breaks required PRN during duration of therapy session secondary to fatigue, generalized weakness and symptoms of pain. Ample time spent between functional tasks in preparation. Patient goal oriented on doing majority on own. Patient in bed surface with HOB elevated to patient comfort; Call light/tray table within reach; Communicated with RN on summary of tx and patient location. Plan Physical Therapy Care Plan Physical Therapy Care Plan (Active) Template: PT - Physical Therapy Problem: Activity Tolerance Dates: Start: 02/26/25 Disciplines: PT Goal: Tolerate 30 minutes of activity WITH rest breaks Dates: Start: 02/26/25 Expected End: 03/07/25 Description: Goal Description: Disciplines: PT Outcomes Date/Time User Outcome 02/27/25 Mirian Kasper PTA Progressing Problem: Bed Mobility Dates: Start: 02/26/25 Disciplines: PT Goal: Patient will perform bed mobility with Supervision Dates: Start: 02/26/25 Expected End: 03/07/25 Description: Goal Description: Disciplines: PT Outcomes Date/Time User Outcome 02/27/25 Mirian Kasper PTA Progressing Problem: Gait Dates: Start: 02/26/25 Disciplines: PT Goal: Patient will perform gait with Stand By Assist Dates: Start: 02/26/25 Expected End: 03/07/25 Description: Pt will be able to ambulate 150 ft with walker and stand by assist to safely navigate household distances. Disciplines: PT Outcomes Date/Time User Outcome 02/27/25 105Machelle Kasper PTA Progressing Goal Note filed on 02/27/25 1057 by Sarah Beth Kasper PTA 15' x2 Problem: Stairs/Curb Dates: Start: 02/26/25 Disciplines: PT Goal: Patient will perform stairs/curb with Contact Guard Dates: Start: 02/26/25 Expected End: 03/07/25 Description: Pt will be able to ascend 5 steps with HR on L to safely enter household upon hospitaldischarge. Disciplines: PT Problem: Standing Balance Dates: Start: 02/26/25 Disciplines: PT Goal: Improve balance to good Dates: Start: 02/26/25 Expected End: 03/07/25 Description: Static Dynamic Disciplines: PT Outcomes Date/Time User Outcome 02/27/25 1057 Sarah Beth Kasper PTA Progressing Problem: Transfers Dates: Start: 02/26/25 Disciplines: PT Goal: Patient will perform transfers with Supervision Dates: Start: 02/26/25 Expected End: 03/07/25 Description: Goal Description: Disciplines: PT Outcomes Date/Time User Outcome 02/27/25 1057 Sarah Beth Kasper PTA Progressing Physical Therapy Care Plan (Resolved) There are no resolved problems. Principal Problem: Pubic bone fracture ([facility]) Active Problems: Hypertension Paroxysmal atrial fibrillation (CMS-HCC) Presence of cardiac pacemaker- MDT Essential tremor Acquired hypothyroidism Cosigned by Apoorva Morales PT at 02/27/2025 12:11 PM EDT Associated attestation - Apoorva Morales, PT - 02/27/2025 12:11 PM EDT I have reviewed and agree with this note and education documentation for this visit. * Plan of Care - Bhavna Wilder RN - 02/27/2025 1:22 AM EDT Problem: Safety Goal: Patient will be injury free during hospitalization Description: INTERVENTIONS: 1. Assess patient's risk for falls and implement fall prevention plan of care per policy 2. Provide and maintain a safe environment 3. Proper use of double Identifiers 4. Medication administration using the 5 rights 5. Hand hygiene 6. Specimens are labeled at the bedside 7. Instruct patient/ patient admissions representative about use of safety devices 8. Include patient/ patient admissions representative in decisions related to safety Outcome: Progressing Note: Evaluation of progress towards goal: Pt is free of injury, safe environment provided and maintained, medication administered as ordered, hand hygiene completed. * PT/OT/SYSTEM ARCHITECT - Apoorva Morales PT - 02/26/2025 11:29 AM EDT Physical Therapy Evaluation Discharge Recommendations for Safe Patient Transition PT Discharge Disposition Recommendation: Post acute - moderate PT Post Acute Moderate Rehab Needs: Recommend moderate intensity rehab Floor Scrubber Support for-: Mobility Deficits, ADL Deficits Past Medical History: Diagnosis Date Abdominal cramping [...] 10/31/2017 Performed by Daksha Bull MD at [facility] BREAST BIOPSY Left 1960s BENIGN, cyst/tumor, in her 20's CARDIAC PACEMAKER PLACEMENT Left CATARACT EXTRACTION 2007 COLONOSCOPY 06/28/2016 COLONOSCOPY N/A 01/19/2020 Performed by Fermin Gamez MD at [facility] ENDOSCOPY Coronary angiogram and right heart and left ventricular gram/pressure N/A 09/09/2018 Performed by Solomon Piper MD at [facility] CARDIAC CATH LABS EGD with bx N/A 02/28/2020 Performed by Fermin Gamez MD at [facility] ENDOSCOPY EP - Device DC PPM Left 11/04/2018 Performed by Lori Yo MD at [facility] HRC (EP) FOOT SURGERY Bilateral little toes pins in toes, bones shaved down on outsides of both feet MINIMALLY INVASIVE MITRAL VALVE REPAIR 28MM FUTURE RING , MINIMALLY INVASIVE TRICUSPID VALVE [id number] CONTOUR 3D RING/ BHARAT N/A 10/30/2018 Performed by Edin Lima MD at [facility] SPINE SURGERY THYROIDECTOMY, PARTIAL TONSILLECTOMY child WRIST SURGERY Left 6 Clicks: Basic Mobility Turning from your back to your side while in a flat bed without using bed rails?: A little Moving from lying on your back to sitting on side of flat bed without using bed rails?: A little Moving to and from bed to a chair (including w/c)?: A little Standing up from a chair using your arms (e.g. w/c or bedside chair)?: A little To walk in hospital room?: A little Climbing 3-5 steps with a railing?: A lot Scoring 6 Clicks: Basic Mobility Raw Score: 17 CMS G Code Modifier: CK Therapy Plan Need for skilled Physical Therapy to address deficits in functional mobility due to a status decline resulting from pubic bone fracture. PT Treatment/Interventions: ADL retraining, Functional transfer training, LE strengthening/ROM, Endurance training, Stair training, Balance, Bed mobility, Gait training PT Frequency: 5-6days/week PT Duration: 10 days Assessment Patient Assessment Therapy Problem List: Abnormal posture, Decreased ADL status, Decreased balance, Decreased endurance, Decreased high-level ADLs, Decreased mobility, Decreased safe judgement during ADL, Decreased LE ROM, Decreased LE strength Patient Response to Treatment: Tolerated evaluation without adverse reaction Mood/Affect: Appropriate for circumstances Visit RN Communication: Yes (Lovely) Medical Record Reviewed: Yes Activity Therapy Type of Visit: Activities Assessment PT Type of Visit: Evaluation Precautions Activity: Early mobility pass, OK to evaluate per Lovely KONG. Equipment: Walker, gait belt, non-skid socks Weight Bearing Status: WBAT on RLE Telemetry/Digital Editor: Yes Oxygen Used: Room air Other: Mildly displaced R pubic bone fracutre, nondiscplaced fracture of ischial tuberosity. Per ortho, patient can be WBAT on RLE. Subjective Physical Therapy Comments: I know I won't be able to go home like this Pain Assessment Pain Assessment: 0-10 Pain Score: 9 (with movements of RLE) Pain Location: Pelvis Pain Orientation: Right Pain Descriptors: Aching Pain Duration: Constant/continuous Pain Intervention(s): Medication (See MAR) Home Living Type of Home: House Home Layout: One level, Stairs to enter with rails Stairs to Enter: 5 Hand Rails: Left Bathroom Shower/Tub: Walk-in shower Bathroom Toilet: Raised Bathroom Equipment: Built-in shower seat, Hand-held shower Bathroom Accessibility: Accessible via walker Home Equipment: Rolling walker Other : Reports she ambulated with no AD prior to fall Prior Function Lives With: Alone (Spouse recently last August.) Receives Help From: Family (daughter is a nurse and lives close by) Level of Mobility: Independent with ADLs and functional transfers or gait Homemaking Assistance: Independent Other: Still drove, mowed her own lawn prior to fall. ADL / IADL Hand Dominance: Right Hearing / Speech / Vision Hearing: Within Functional Limits Speech: Within Functional Limits Current Vision: (wears one contact in left eye) Cognition Orientation Level: Oriented X4 Bed Mobility Supine to Sit: Min assist Sit to Supine: Min assist Other: Required min A to lift upper trunk with supine to sit. Increased time needed to move RLE dueto pain. Head of bed slightly elevated and use of bed rails needed. Transfers Sit to Stand: Min assist Stand to Sit: Min assist Other: Completed 1 sit to stand from edge of bed with min A. Was able to perform static stand for ~1 min before initiating gait with equal WB on B LE's. Gait Base of Support: Narrow Pattern: Decreased neris, R Decreased heel strike, L Decreased heel strike, R Decreased foot clearance, L Decreased foot clearance, Forward trunk, R Decreased stance time Gait Assistance: Contact guard assist Assistive Device: Rolling walker Gait Distance: 15 ft Limiting Factors to Gait: Fatigue, Weakness, Decreased safety, Pain 2 Turns: Yes Other: Patient reports increaed pain at R LE with gait, up to 8/10. Increased time needed with gaittraining due to pain. Balance Sitting Balance: Static: Good Sitting Balance: Dynamic: Good Standing Balance: Static: Fair Standing Balance: Dynamic: Fair, Poor RLE Assessment: Within Functional Limits LLE Assessment: Within Functional Limits Activity Tolerance Endurance: Tolerates <30 minutes activity with vital sign changes Plan Physical Therapy Care Plan Physical Therapy Care Plan (Active) Template: PT - Physical Therapy Problem: Activity Tolerance Dates: Start: 02/26/25 Disciplines: PT Goal: Tolerate 30 minutes of activity WITH rest breaks Dates: Start: 02/26/25 Expected End: 03/07/25 Description: Goal Description: Disciplines: PT Problem: Bed Mobility Dates: Start: 02/26/25 Disciplines: PT Goal: Patient will perform bed mobility with Supervision Dates: Start: 02/26/25 Expected End: 03/07/25 Description: Goal Description: Disciplines: PT Problem: Gait Dates: Start: 02/26/25 Disciplines: PT Goal: Patient will perform gait with Stand By Assist Dates: Start: 02/26/25 Expected End: 03/07/25 Description: Pt will be able to ambulate 150 ft with walker and stand by assist to safely navigate household distances. Disciplines: PT Problem: Stairs/Curb Dates: Start: 02/26/25 Disciplines: PT Goal: Patient will perform stairs/curb with Contact Guard Dates: Start: 02/26/25 Expected End: 03/07/25 Description: Pt will be able to ascend 5 steps with HR on L to safely enter household upon hospitaldischarge. Disciplines: PT Problem: Standing Balance Dates: Start: 02/26/25 Disciplines: PT Goal: Improve balance to good Dates: Start: 02/26/25 Expected End: 03/07/25 Description: Static Dynamic Disciplines: PT Problem: Transfers Dates: Start: 02/26/25 Disciplines: PT Goal: Patient will perform transfers with Supervision Dates: Start: 02/26/25 Expected End: 03/07/25 Description: Goal Description: Disciplines: PT Physical Therapy Care Plan (Resolved) There are no resolved problems. Principal Problem: Pubic bone fracture ([facility]) * Plan of Care - Lovely Alves RN - 02/26/2025 9:30 AM EDT Problem: Pain Goal: Patient goal is pain score less than 4, able to rest, and participant in treatment plan as appropriate Description: INTERVENTIONS: 1. Encourage patient or legal admissions representative to report early pain and ask for pain medicine when needed 2. Assess pain using appropriate pain scale and include the scale used when documenting 3. Administer analgesics based on type and severity of pain and evaluate response within appropriate time frame 4. Implement non-pharmacological measures as appropriate and evaluate response 5. Consider cultural and social influences on pain and pain management 6. Notify LIP if interventions ineffective or patient reports new pain 7. Monitor vital signs including pulse ox, end-tidal CO2 based on pain intervention 8. Reassess pain per policy 9. Teach patient or legal admissions representative interventions for comforting Outcome: Progressing Note: Evaluation of progress towards goal: Pt encouraged to report early pain, non pharmacological measures implemented as needed. Pt able to report pain according to 0/10 pain scale. Medicating patient for pain per orders. Problem: Safety Goal: Patient will be injury free during hospitalization Description: INTERVENTIONS: 1. Assess patient's risk for falls and implement fall prevention plan of care per policy 2. Provide and maintain a safe environment 3. Proper use of double Identifiers 4. Medication administration using the 5 rights 5. Hand hygiene 6. Specimens are labeled at the bedside 7. Instruct patient/ patient admissions representative about use of safety devices 8. Include patient/ patient admissions representative in decisions related to safety Outcome: Progressing Note: Evaluation of progress towards goal: Pt's risk for falls assessed and fall prevention implemented as needed, safe environment provided and maintained, hand hygiene completed. Problem: Infection Goal: Absence of infection during hospitalization Description: INTERVENTIONS 1. Assess and monitor for signs and symptoms of infection. 2. Monitor lab/diagnostic results. 3. Monitor all insertion sites i.e., indwelling lines, tubes and drains. 4. Monitor endotracheal (as able) and nasal secretions for changes in amount and color. 5. Administer medications as ordered. 6. Instruct and encourage patient and family to use good hand hygiene technique. 7. Identify and instruct patient/patient admissions representative in use of appropriate isolation precautionsfor identified infection/symptoms. 8. Provide and discuss with patient/patient admissions representative on educational MDRO sheet. 9. Encourage and monitor nutritional status daily and consult broadcast maintenance engineer if indicated. 10. Implement neutropenic guidelines as needed. Outcome: Progressing Note: Evaluation of progress towards goal: Pt assessed and monitored for signs and symptoms of infection, lab and diagnostic results monitored as needed, administer medications as needed. Problem: Knowledge Deficit Goal: Patient/patient admissions representative demonstrates understanding of disease process, treatment plan,medications, and discharge instructions Description: INTERVENTIONS 1. Complete learning assessment and assess knowledge base 2. Provide teaching at level of understanding 3. Provide teaching via preferred learning method(s) Outcome: Progressing Note: Evaluation of progress towards goal: Pt learning and knowledge base assessed, teaching provided at an understandable level as needed, teaching provided via preferred learning method. * Plan of [facility] - Brigida Medrano RN - 02/25/2025 10:14 PM EDT Problem: Pain Goal: Patient goal is pain score less than 4, able to rest, and participant in treatment plan as appropriate Description: INTERVENTIONS: 1. Encourage patient or legal admissions representative to report early pain and ask for pain medicine when needed 2. Assess pain using appropriate pain scale and include the scale used when documenting 3. Administer analgesics based on type and severity of pain and evaluate response within appropriate time frame 4. Implement non-pharmacological measures as appropriate and evaluate response 5. Consider cultural and social influences on pain and pain management 6. Notify LIP if interventions ineffective or patient reports new pain 7. Monitor vital signs including pulse ox, end-tidal CO2 based on pain intervention 8. Reassess pain per policy 9. Teach patient or legal admissions representative interventions for comforting Outcome: Progressing Note: Evaluation of progress towards goal: monitor and treat pain as ordered. Problem: Safety Goal: Patient will be injury free during hospitalization Description: INTERVENTIONS: 1. Assess patient's risk for falls and implement fall prevention plan of care per policy 2. Provide and maintain a safe environment 3. Proper use of double Identifiers 4. Medication administration using the 5 rights 5. Hand hygiene 6. Specimens are labeled at the bedside 7. Instruct patient/ patient admissions representative about use of safety devices 8. Include patient/ patient admissions representative in decisions related to safety Outcome: Progressing Note: Evaluation of progress towards goal: patient remains free from falls/injuries. * Plan of Care - Lovely Alves RN - 02/25/2025 2:52 PM EDT Problem: Pain Goal: Patient goal is pain score less than 4, able to rest, and participant in treatment plan as appropriate Description: INTERVENTIONS: 1. Encourage patient or legal admissions representative to report early pain and ask for pain medicine when needed 2. Assess pain using appropriate pain scale and include the scale used when documenting 3. Administer analgesics based on type and severity of pain and evaluate response within appropriate time frame 4. Implement non-pharmacological measures as appropriate and evaluate response 5. Consider cultural and social influences on pain and pain management 6. Notify LIP if interventions ineffective or patient reports new pain 7. Monitor vital signs including pulse ox, end-tidal CO2 based on pain intervention 8. Reassess pain per policy 9. Teach patient or legal admissions representative interventions for comforting Outcome: Progressing Note: Evaluation of progress towards goal: Pt encouraged to report early pain, non pharmacological measures implemented as needed. Pt able to report pain according to 0/10 pain scale. Medicating patient for pain per orders. Problem: Safety Goal: Patient will be injury free during hospitalization Description: INTERVENTIONS: 1. Assess patient's risk for falls and implement fall prevention plan of care per policy 2. Provide and maintain a safe environment 3. Proper use of double Identifiers 4. Medication administration using the 5 rights 5. Hand hygiene 6. Specimens are labeled at the bedside 7. Instruct patient/ patient admissions representative about use of safety devices 8. Include patient/ patient admissions representative in decisions related to safety Outcome: Progressing Note: Evaluation of progress towards goal: Pt's risk for falls assessed and fall prevention implemented as needed, safe environment provided and maintained, hand hygiene completed. Problem: Infection Goal: Absence of infection during hospitalization Description: INTERVENTIONS 1. Assess and monitor for signs and symptoms of infection. 2. Monitor lab/diagnostic results. 3. Monitor all insertion sites i.e., indwelling lines, tubes and drains. 4. Monitor endotracheal (as able) and nasal secretions for changes in amount and color. 5. Administer medications as ordered. 6. Instruct and encourage patient and family to use good hand hygiene technique. 7. Identify and instruct patient/patient admissions representative in use of appropriate isolation precautionsfor identified infection/symptoms. 8. Provide and discuss with patient/patient admissions representative on educational MDRO sheet. 9. Encourage and monitor nutritional status daily and consult broadcast maintenance engineer if indicated. 10. Implement neutropenic guidelines as needed. Outcome: Progressing Note: Evaluation of progress towards goal: Pt assessed and monitored for signs and symptoms of infection, lab and diagnostic results monitored as needed, administer medications as needed. Problem: Knowledge Deficit Goal: Patient/patient admissions representative demonstrates understanding of disease process, treatment plan,medications, and discharge instructions Description: INTERVENTIONS 1. Complete learning assessment and assess knowledge base 2. Provide teaching at level of understanding 3. Provide teaching via preferred learning method(s) Outcome: Progressing Note: Evaluation of progress towards goal: Pt learning and knowledge base assessed, teaching provided at an understandable level as needed, teaching provided via preferred learning method. * Discharge Planning Note - ELIUD Gamez - 02/25/2025 2:29 PM EDT Images from the original note were not included. Initial Assessment Initial Assessment Flowsheet Row Most Recent Value Patient Information Initial Pre-Hospitalization Assessment Completed? Completed Primary Caregiver Self Accompanied by/Relationship friend Moriah Support System Children, Friends [daughter Kiya, friend Moriah] Discharge Planning Living Arrangements Alone, Private Residence Assistance Needed independent with adls/iadls including special needs bus driver Type of Residence Private residence Private Residence 1 story Can patient reside on one level? Yes Residence Accessibility Steps into home, Railing Number of Steps 4 Home Care Services No Community Referrals / Resources Provided Denies needs Does The Patient Have Existing Home DME? No Will the patient need DME at discharge? No, the patient has no home DME needs currently Stressors Type of stressor -- [does not endorse] Income Information Income Information Retired/Pension/Social Security IP Hunger/Food Insecurity Screening Within the past 12 months we worried whether our food would run out before we got money to buy more. Never True Within the past 12 months the food we bought just didn't last and we didn't have money to get more.Never True Hunger Screening Complete? Yes Pt. Eligible for Food / Voucher No If Eligible: Received Food Box Not Offered to Patient Warm Handoff Complete Caregiver/Family Member Caregiver/Family Member pt gives permission to complete assessment with juhi Major present Caregiver/Family Member Involved with Current Plan of Care Yes [friend Moriah] Caregiver/Family Member in Agreement with Current Plan of Care Yes Caregiver/Support System Limitations Patient/Caregiver Goals Patient/Caregiver Goals Home No Needs [upon therapy needs] Home No Needs Alone Community Provider Referral Community Provider Referral None Services Requested Has the case been escalated? No Patient expects to be discharged to: home Does the patient wish to have family/friend/caregiver involved in their discharge planning? Yes Does the patient plan to return home to a community setting? Yes Has the family/friend/caregiver been assessed to determine their readiness, skills, capacities, andresources to provide post hospital care? Yes, Caregiver Assessment Completed [juhi barajas pt states is like her sister, pt daughter is an RN] Discharge Disposition Home with self care [pending therapy needs] Does the patient need discharge transportation arranged? No DC Planning Complete Discharge Milestones Yes 3-Midnight Is SNF the current discharge plan for this Traditional/Orignal Medicare patient? No Services Requested: Services Requested Has the case been escalated?: No Patient expects to be discharged to:: home Does the patient wish to have family/friend/caregiver involved in their discharge planning?: Yes Does the patient plan to return home to a community setting?: Yes Has the family/friend/caregiver been assessed to determine their readiness, skills, capacities, andresources to provide post hospital care?: Yes, Caregiver Assessment Completed (friend Moriah who pt states is like her sister; pt daughter is an RN) Discharge Disposition: Home with self care (pending therapy needs) Does the patient need discharge transportation arranged?: No DC Planning Complete Discharge Milestones: Yes Patient Goals: Patient/Caregiver Goals Patient/Caregiver Goals: Home No Needs (upon therapy needs) Home No Needs: Alone Goals home with friend support (pt-stated) Evaluation of progress towards goal: under assessment Additional Comments (If Applicable) Chart reviewed. Introduced self & role of SW, pleasant pt agreeable to conversation with her good sister like friend Moriah present; assessment/goals as above. Pt does not endorse alcohol/substance use. Pt does not endorse food insecurity or financial stressors. Pt is able to afford home medications. Pt has functioning water, heat, cooling & electric inthe home. Negative [place] screen. Pt provides own transportation. Pt is independent in/out of the home, performs own household tasks,meal preparation & grocery shops. Pt uses no assist devices or home services. Pt relayed her daughter Kiya who is an RN & her best friend Moriah provide natural supports. Patient's preferred pharmacy is [facility]. PCP verified as Dr. Юлия Hooks. Educated pt on available community resources including meals on wheels and Home Health Care; pt does not endorse any current DC needs. Pt said she has a walker that was her 's at home. Pt goal is home going. Informed pt that PT/OT will complete evaluation which will help with safe DCplan, pt & friend state understanding. Opportunity provided to ask questions, pt does not endorse any at this time. Plan to prevent readmission is for pt to follow up with PCP, tasked to arrange for post hospitalization PCP appointment in 7-10 days, follow DC instructions including medication compliance and to reach out to health care team as needed. Care Navigation will continue to follow patient progress to determine appropriate safe care transition needs. * PT/OT/SYSTEM ARCHITECT - Tiffanie Paulson, PT - 02/25/2025 1:27 PM EDT Physical Therapy PT Type of Visit: (P) Medical deferral (ER nurse states transporting to acute floor at any moment.) Reason For Medical Deferral: (P) Provider input needed (Await weightbearing status do to mildly displaced fracture of R. pubic bone as well as non-displaced fracture of R. ischial tuberosity.) PT will continue to follow this patient. Thank you for this referral. * PT/OT/SYSTEM ARCHITECT - Elva Bucio, OTR/L - 02/25/2025 1:26 PM EDT Occupational Therapy OT Type of Visit: Medical deferral (patient coming to acute floor soon) patient with mildly displaced fracture of the right pubic bone and nondisplaced fracture of the right ischial tuberosity, attempted to see patient in the ED however pt is schedule to come to acute floor for soon. WB status also unclear at this time. OT to continue to follow. [facility]* Discharge Planning Note - Juhi Estrada - 02/28/2025 10:55 AM EDT DISCHARGE PLANNING NOTE Referral sent to [facility], [facility] (P# ; F# ) [id number] Progress note* Discharge Planning Note - Brinda Wilhelm RN - 02/28/2025 10:27 AM EDT 02/28/25 1023 Patient Information Initial Pre-Hospitalization Assessment Completed? Completed Primary Caregiver Self Support System Family Members Discharge Planning Living Arrangements Alone Type of Residence Private residence Private Residence 1 story Can patient reside on one level? Yes Home Care Services No Does The Patient Have Existing Home DME? No Income Information Income Information Retired/Pension/Social Security IP Hunger/Food Insecurity Screening Within the past 12 months we worried whether our food would run out before we got money to buy more. Never True Within the past 12 months the food we bought just didn't last and we didn't have money to get more.Never True Hunger Screening Complete? Yes Pt. Eligible for Food / Voucher No If Eligible: Received Food Box Not Offered to Patient Warm Handoff Complete Caregiver/Family Member Caregiver/Family Member kevin Huertas Caregiver/Family Member Involved with Current Plan of Care Yes Caregiver/Family Member in Agreement with Current Plan of Care Yes Patient/Caregiver Goals Patient/Caregiver Goals Group Home Care Skilled [facility] Skilled Care (Short Term) Services Requested Has the case been escalated? No Patient expects to be discharged to: SNF Does the patient wish to have family/friend/caregiver involved in their discharge planning? Yes Does the patient plan to return home to a community setting? Yes Has the family/friend/caregiver been assessed to determine their readiness, skills, capacities, andresources to provide post hospital care? Yes, Caregiver Assessment Completed Discharge Disposition SNF SNF Name ([facility] tasked w/ referral to [facility] [place].) SNF Accepted? (Referral sent) Does the patient need discharge transportation arranged? Yes Transportation Arranged [place] Patient choice offered Patient declined List Provided Patient declined Patient Declined Other (must state reason) (Patient and daughter requested [facility]. Kiya daughter states she has another family in the facility and would like to referral sent. Patient in agreement with plan.) DC Planning Complete Discharge Milestones Yes DISCHARGE PLANNING NOTE CN met with patient at bedside. Kiya daughter on speaker phone during conversation. Patient lived home alone prior to hospital admission. Patient was able to perform ADLs per self, drive, and is retired. Patient follows w/ Dr. Hooks and prefers [facility] pharmacy. Discharge plan discussed w/ patient and daughter. Patient/daughter declined SNF list, would like referral sent to [facility] [place]. Kiya daughter states she has family member currently in the facility and would like referral sent. Patient in agreement with SNF choice. [facility] tasked w/ referral to [facility] [place]. Patient has traditional Medicare, requiring 3-midnight inpatient qualifying stay. Inpatient order written 02/25/25 at 12:13pm. Patient has met 3- midnight qualifying stay and can be discharged once facility can accept and medically ready. Discharge plan: SNF Referral sent to [facility] [place]. - Brinda Wilhelm RN 02/28/25 10:32 AM Update: CN called and left voicemail for Mckenna, admissions. Awaiting call back to clarify facility acceptance. - Brinda Wilhelm RN 02/28/25 1:36 PM Update: Jennifer Andres [facility] ([facility] in [place] can accept patient today. Will need rapid covid test. CN to call once transport time confirmed. Nursing and provider notified. [facility] [address] [place] [address] Call report Fax Covid result & CRF - Brinda Wilhelm RN 02/28/25 2:46 PM [employer] [facility]09-22-2025 Progress note* PT/OT/SYSTEM ARCHITECT - Ambika Calderon, PT - 02/28/2025 8:25 AM EDT Physical Therapy Treatment, Co-Treatment Discharge Recommendations for Safe Patient Transition PT Discharge Disposition Recommendation: Post acute - moderate PT Post Acute Moderate Rehab Needs: Tolerate 1-2 hrs of therapy 3-5 days/wk 6 Clicks: Basic Mobility Turning from your back to your side while in a flat bed without using bed rails?: A little Moving from lying on your back to sitting on side of flat bed without using bed rails?: A little Moving to and from bed to a chair (including w/c)?: A little Standing up from a chair using your arms (e.g. w/c or bedside chair)?: A little To walk in hospital room?: A little Climbing 3-5 steps with a railing?: A lot Scoring 6 Clicks: Basic Mobility Raw Score: 17 CMS G Code Modifier: CK Therapy Plan Need for skilled Physical Therapy to address deficits in functional mobility due to a status decline resulting from recent medical condition. Pt resting in bed upon arrival and agreed to PT and OT. Pt performed a few exercises in bed and needed CGA to get to edge of bed. Pt then was able to stand up with CGA for safety and then used rolling walker to ambulate 40 ft with walker and WBAT. Pt with increased pain the more she was standing and on her feet. CGA/min to help get back into bed due to pain in R LE. Pt back resting in bed and breakfast tray arrived. Call light within reach and all needs met upon departure. 02/28/25 0735 LE Supine LE supine exercises performed? Yes Ankle pumps 10 Gluteal sets 10 Quad sets 10 Supine heel slides 5 Other to improve mobility/strength for ease of gait Assessment Patient Assessment Patient Response to Treatment: Progressing toward goals Mood/Affect: Appropriate for circumstances Rehab Prognosis: Good, With continued PT status post acute discharge Visit RN Communication: Yes Medical Record Reviewed: Yes PT Type of Visit: Treatment, Co-Treatment Precautions Activity: as tolerated Equipment: rollign walker, nonskid socks, gait belt Weight Bearing Status: WBAT Telemetry/Digital Editor: Yes Oxygen Order : room air Subjective Physical Therapy Comments: Pt reports that at rest her pain is fine, her pain increases when she isstanding and walking. Pain Assessment Pain Assessment: 0-10 Pain Score: 8 Pain Location: Pelvis Hearing / Speech / Vision Hearing: Within Functional Limits Speech: Within Functional Limits Cognition Overall Cognitive Status: Within Functional Limits Orientation Level: Oriented X4 Sensation Overall Sensation Status: (no c/o numbness or tingiing today) Bed Mobility Supine to Sit: Contact guard assist Sit to Supine: Contact guard assist, Min assist Other: head of bed needed elevated and used bedrail for support, some guidance for R LE back into bed due to pain. Transfers Sit to Stand: Contact guard assist, Verbal cues Stand to Sit: Contact guard assist, Verbal cues Other: cues for hand placement with transfers Gait Gait Assistance: Contact guard assist Assistive Device: Rolling walker Gait Distance: 40 ft with antalgia and decreased WB into R LE Limiting Factors to Gait: Fatigue, Weakness, Pain Other: decreased stride and neris noted Balance Sitting Balance: Static: Good Sitting Balance: Dynamic: Fair Standing Balance: Static: Fair Standing Balance: Dynamic: Fair Other: with us of walker for gait and standing balance Activity Tolerance Endurance: Tolerates <30 minutes activity WITHOUT vital sign changes Plan Physical Therapy Care Plan Physical Therapy Care Plan (Active) Template: PT - Physical Therapy Problem: Activity Tolerance Dates: Start: 02/26/25 Disciplines: PT Goal: Tolerate 30 minutes of activity WITH rest breaks Dates: Start: 02/26/25 Expected End: 03/07/25 Description: Goal Description: Disciplines: PT Outcomes Date/Time User Outcome 02/27/25 Mirian Kasper PTA Progressing Problem: Bed Mobility Dates: Start: 02/26/25 Disciplines: PT Goal: Patient will perform bed mobility with Supervision Dates: Start: 02/26/25 Expected End: 03/07/25 Description: Goal Description: Disciplines: PT Outcomes Date/Time User Outcome 02/28/25823 Ambika Calderon, PT Progressing 02/27/25 Mirian Kasper PTA Progressing Goal Note filed on 02/28/25823 by Ambika Calderon PT Evaluation of progress towards goal: CGA today, but slight min for sit to supine Problem: Gait Dates: Start: 02/26/25 Disciplines: PT Goal: Patient will perform gait with Stand By Assist Dates: Start: 02/26/25 Expected End: 03/07/25 Description: Pt will be able to ambulate 150 ft with walker and stand by assist to safely navigate household distances. Disciplines: PT Outcomes Date/Time User Outcome 02/28/25823 Ambika Calderon, PT Progressing 02/27/25 Mirian Kasper PTA Progressing Goal Note filed on 02/28/25823 by Ambika Calderon PT Evaluation of progress towards goal: CGA with rolling walker 40 feet today on level surfaces Problem: Stairs/Curb Dates: Start: 02/26/25 Disciplines: PT Goal: Patient will perform stairs/curb with Contact Guard Dates: Start: 02/26/25 Expected End: 03/07/25 Description: Pt will be able to ascend 5 steps with HR on L to safely enter household upon hospitaldischarge. Disciplines: PT Problem: Standing Balance Dates: Start: 02/26/25 Disciplines: PT Goal: Improve balance to good Dates: Start: 02/26/25 Expected End: 03/07/25 Description: Static Dynamic Disciplines: PT Outcomes Date/Time User Outcome 02/27/25 Mirian Kasper PTA Progressing Problem: Transfers Dates: Start: 02/26/25 Disciplines: PT Goal: Patient will perform transfers with Supervision Dates: Start: 02/26/25 Expected End: 03/07/25 Description: Goal Description: Disciplines: PT Outcomes Date/Time User Outcome 02/28/25823 Ambika Calderon, PT Progressing 02/27/25 1057 Sarah Beth Kasper, CHANTELLE Progressing Goal Note filed on 02/28/25823 by Ambika Calderon PT Evaluation of progress towards goal: CGA Physical Therapy Care Plan (Resolved) There are no resolved problems. Principal Problem: Pubic bone fracture (CMS-HCC) Active Problems: Hypertension Paroxysmal atrial fibrillation (CMS-HCC) Presence of cardiac pacemaker- MDT Essential tremor Acquired hypothyroidism [employer]09-22-2025 Progress note* PT/OT/SYSTEM ARCHITECT - Elva Bucio OTR/L - 02/28/2025 8:04 AM EDT Occupational Therapy Evaluation (completed with PT in order to maximize patient's functional status with OT assessing ADLS) Discharge Recommendations for Safe Patient Transition OT Discharge Disposition Recommendation: Post acute - moderate OT Post Acute Moderate Rehab Needs: Recommend moderate intensity rehab, Tolerate 1-2 hrs of therapy3-5 days/wk, Subacute or chronic functional impairment Current Impairments Informing Therapy Recommendation: Ambulation status/safety, Fall risk, ADL status, Endurance level Floor Scrubber Support for-: Mobility Deficits, ADL Deficits 6 Clicks: Daily Activity Putting on and taking off regular lower body clothing?: A lot Bathing (including washing, rinsing, drying)?: A lot Toileting, which includes using toilet, bedpan or urinal?: A lot Putting on and taking off regular upper body clothing?: A little Taking care of personal grooming such as brushing teeth?: A little Eating meals?: None Scoring Daily Activity Raw Score: 16 CMS G Code Modifier: CK Therapy Plan/HPI/occupational profile throughout eval Need for skilled Occupational Therapy to address deficits in ADL independence and functional mobility due to a status decline resulting from status post fall and pubic bone fracture.a moderate complex eval was completed. Past Surgical History: Procedure Laterality Date BACK SURGERY 2011 CAGE BLEPHAROPLASTY OPHTH Bilateral 10/31/2017 Performed by Daksha Bull MD at [facility] BREAST BIOPSY Left 1960s BENIGN, cyst/tumor, in her 20's CARDIAC PACEMAKER PLACEMENT Left CATARACT EXTRACTION 2007 COLONOSCOPY 06/28/2016 COLONOSCOPY N/A 01/19/2020 Performed by Fermin Gamez MD at [facility] ENDOSCOPY Coronary angiogram and right heart and left ventricular gram/pressure N/A 09/09/2018 Performed by Solomon Piper MD at [facility] CARDIAC CATH LABS EGD with bx N/A 02/28/2020 Performed by Fermin Gamez MD at [facility] ENDOSCOPY EP - Device DC PPM Left 11/04/2018 Performed by Lori Yo MD at [facility] HRC (EP) FOOT SURGERY Bilateral little toes pins in toes, bones shaved down on outsides of both feet MINIMALLY INVASIVE MITRAL VALVE REPAIR 28MM FUTURE RING , MINIMALLY INVASIVE TRICUSPID VALVE [id number] CONTOUR 3D RING/ BHARAT N/A 10/30/2018 Performed by Edin Lima MD at [facility] SPINE SURGERY THYROIDECTOMY, PARTIAL 1990s TONSILLECTOMY child WRIST SURGERY Left Past Medical History: Diagnosis Date Abdominal cramping [...] wears one lense in the left eye OT Treatment/Interventions: ADL retraining, Functional transfer training, UE strengthening/ROM, Endurance training, Patient/family training, Balance, Equipment eval/education, Home management, Functional activities, Compensatory technique education OT Frequency: 3-4days/week OT Duration: 10 days Assessment Patient Assessment Therapy Problem List: Abnormal posture, Decreased ADL status, Decreased balance, Decreased endurance, Decreased high-level ADLs, Decreased mobility, Decreased safe judgement during ADL, Decreased LE ROM, Decreased LE strength Patient Response to Treatment: Tolerated evaluation without adverse reaction Mood/Affect: Appropriate for circumstances Rehab Prognosis: Good, With continued OT status post acute discharge Visit RN Communication: Yes Medical Record Reviewed: Yes OT Type of Visit: Evaluation (completed with PT in order to maximize patient's functional status with OT assessing ADLS) Precautions Activity: early mobility pass, OK to eval per Cynthia KONG Equipment: RW, gait belt, nonskid socks. Weight Bearing Status: WBAT on RLE Pacemaker/ICD: Pacemaker Oxygen Used: room air Other: Mildly displaced R pubic bone fracutre, nondiscplaced fracture of ischial tuberosity. Per ortho, patient can be WBAT on RLE. Subjective Occupational Therapy Comments: I want to go to [place] view Pain Assessment Pain Assessment: 0-10 Pain Score: 9 Pain Location: Pelvis Pain Orientation: Right, Left Pain Intervention(s): Repositioned, Emotional support Home Living Type of Home: House Home Layout: One level, Stairs to enter with rails Stairs to Enter: 5 Hand Rails: Left Bathroom Shower/Tub: Walk-in shower Bathroom Toilet: Raised Bathroom Equipment: Built-in shower seat, Hand-held shower Bathroom Accessibility: Accessible via walker Home Equipment: Rolling walker Prior Function Lives With: Alone (spouse recently in August) Receives Help From: Family (daughter is a nurse and lives close by) Level of Mobility: Independent with ADLs and functional transfers or gait (ambulated without deviceprior to fall) Homemaking Assistance: Independent Other: rupali prior to admit, still driving, completed the yard work ADL / IADL Hand Dominance: Right Grooming Assistance: Contact guard assist Bathing/Showering Assistance: Min assist Toilet/Commode Assistance: Min assist, Mod assist UE Dressing Assistance: Min assist (for gown) LE Dressing Assistance: Mod assist Footwear Assistance: Total assist Footwear Deficit: R sock, L sock Other: ed on role and goals of OT, agreeable to eval. ADL assessment is based on clinical judgementand obseration of pt's ability to complete ROM, strength, endurance, sit and stand balance and funtional mobility Home Management - IADL Other: ed on role and goals of OT, agreeable to eval. ADL assessment is based on clinical judgementand obseration of pt's ability to complete ROM, strength, endurance, sit and stand balance and funtional mobility Hearing / Speech / Vision Hearing: Within Functional Limits Speech: Within Functional Limits Current Vision: Wears contacts (wears one contact in left eye) Cognition Orientation Level: Oriented X4 Sensation Overall Sensation Status: (denies numbness and tingling) Bed Mobility Supine to Sit: Stand by assist (HOB elevated and use of bed rail, increased time for completion) Sit to Supine: Min assist Other: returned to supine at end of session , needs with inreach, ed to use call light Transfers Sit to Stand: Contact guard assist Stand to Sit: Contact guard assist Toilet Transfers: (declines need) Other: completes with RW, cues for hand placement Balance Other: functional mobility completed with RW and CGA throughout room in order to increase strength and endurance as pt prepares for returns to community RUE Assessment: (grossly 4/5) LUE Assessment: (grossly 4/5) Activity Tolerance Endurance: Tolerates <30 minutes activity WITHOUT vital sign changes Plan Occupational Therapy Care Plan Occupational Therapy Care Plan (Active) Template: OT - Occupational Therapy Problem: Activity Tolerance Dates: Start: 02/28/25 Disciplines: OT Goal: Tolerate > 30 minutes of activity WITH rest breaks Dates: Start: 02/28/25 Expected End: 03/09/25 Description: Goal Description:patient to engage in activities of choice with out changes in vitals in order to promote return to prior level of function Disciplines: OT Problem: Other (Customize) Dates: Start: 02/28/25 Disciplines: OT Goal: Improve Dates: Start: 02/28/25 Expected End: 03/09/25 Description: Goal Description:Patient to increase IND in ADls to supervision with use of AE as needed including toileting tasks in order to promote return to prior level of function Disciplines: OT Problem: Standing Balance Dates: Start: 02/28/25 Disciplines: OT Goal: Improve balance to good Dates: Start: 02/28/25 Expected End: 03/09/25 Description: Patient to increase standing balance to good in order to increase IND in ADLS and lower body dressing tasks Disciplines: OT Occupational Therapy Care Plan (Resolved) There are no resolved problems. Principal Problem: Pubic bone fracture (CMS-HCC) Active Problems: Hypertension Paroxysmal atrial fibrillation (CMS-HCC) Presence of cardiac pacemaker- MDT Essential tremor Acquired hypothyroidism [employer] Work Phone: [phone] [phone] Plan of care note* Plan of Care - Merry Cardoza RN - 02/28/2025 2:07 AM EDT Problem: Pain Goal: Patient goal is pain score less than 4, able to rest, and participant in treatment plan as appropriate Description: INTERVENTIONS: 1. Encourage patient or legal admissions representative to report early pain and ask for pain medicine when needed 2. Assess pain using appropriate pain scale and include the scale used when documenting 3. Administer analgesics based on type and severity of pain and evaluate response within appropriate time frame 4. Implement non-pharmacological measures as appropriate and evaluate response 5. Consider cultural and social influences on pain and pain management 6. Notify LIP if interventions ineffective or patient reports new pain 7. Monitor vital signs including pulse ox, end-tidal CO2 based on pain intervention 8. Reassess pain per policy 9. Teach patient or legal admissions representative interventions for comforting Outcome: Progressing Note: Evaluation of progress towards goal: Pain controlled w/ current regimen. Pt states no pain atrest, rates 8-9 when ambulatory. Problem: Safety Goal: Patient will be injury free during hospitalization Description: INTERVENTIONS: 1. Assess patient's risk for falls and implement fall prevention plan of care per policy 2. Provide and maintain a safe environment 3. Proper use of double Identifiers 4. Medication administration using the 5 rights 5. Hand hygiene 6. Specimens are labeled at the bedside 7. Instruct patient/ patient admissions representative about use of safety devices 8. Include patient/ patient admissions representative in decisions related to safety Outcome: Progressing Note: Evaluation of progress towards goal: Remains free from injury. SAfety precautions maintained. Problem: Knowledge Deficit Goal: Patient/patient admissions representative demonstrates understanding of disease process, treatment plan,medications, and discharge instructions Description: INTERVENTIONS 1. Complete learning assessment and assess knowledge base 2. Provide teaching at level of understanding 3. Provide teaching via preferred learning method(s) Outcome: Progressing Note: Evaluation of progress towards goal: Plan of care reviewed, no questions/concerns voiced. Allinterventions explained prior to initiating. Problem: Moderate - High Risk Fall Score Description: Zhong Fall Score of =/> 25 or indicated by [facility] Assessment Goal: Patient should be free from fall Description: Interventions: 1. [place] to environment 2. Hourly rounds addressing the 4 P's (Pain, Positioning, Possessions, Potty) 3. Clear area of hazards (spills, clutter, electrical cords, unnecessary equipment) 4. Place equipment (bed & TV controls, call light, phone, urinal) within reach 5. Encourage patient to wear glasses and hearing aides as appropriate 6. Maintain bed in lowest position 7. Lock wheels on bed/wheelchair 8. Provide adequate lighting, including night light 9. Assess need for additional bedding, food/fluids, pain med's prior to sleep/routinely 10. Provide gripper slippers or personal non-skid footwear 11. Teach patient and patient admissions representative to maintain environment for safety and engage in all aspects of fall prevention program 12. Remind patient to call for help before getting out of bed 13. Initiate bed/chair/exit alarms supportive devices as appropriate, (chair wedge, no-skid floor mat, raised edge mattress, hip protectors) 14. Locate patient bed assignment for optimal visualization 15. Evaluate and identify Safe Patient Handling Equipment needs 16. Provide supervision when out of bed or chair 17. Utilize gait belt as needed to assist with ambulation 18. Place adaptive equipment (cane, walker) within reach 19. Request patient admissions representative bring adaptive equipment/mobility aids from home or obtain and provide as needed 20. Consult pharmacy regarding effects of med's affecting mobility, cognition, and alternatives 21. Obtain physician order for PT if risk factors associated with mobility are present 22. Obtain physician order for OT as appropriate 23. Utilize diversional activities 24. Educate patient and patient admissions representative how to maintain a safe environment during visitationtimes (notify nurse prior to leaving bedside) 25. Consider appropriateness of medical or non-biomedical specialist 26. Set up voiding schedule as appropriate (every 2 hours) Outcome: Progressing Note: Evaluation of progress towards goal: Remains free from falls. Appropriate fall precautions maintained. Pt calls for assistance to get OOB. [employer] [id number] Plan of care note* Plan of Care - Rosario Weller RN - 02/27/2025 5:24 PM EDT Problem: Safety Goal: Patient will be injury free during hospitalization Description: INTERVENTIONS: 1. Assess patient's risk for falls and implement fall prevention plan of care per policy 2. Provide and maintain a safe environment 3. Proper use of double Identifiers 4. Medication administration using the 5 rights 5. Hand hygiene 6. Specimens are labeled at the bedside 7. Instruct patient/ patient admissions representative about use of safety devices 8. Include patient/ patient admissions representative in decisions related to safety Outcome: Progressing Note: Evaluation of progress towards goal: Safety maintained, remains injury free this hospital stay. [employer]09-21-2025 Plan of care note* Plan of Care - Hua Lawler RPH - 02/27/2025 10:43 AM EDT Problem: Medication Description: If medication is necessary, use low-risk medication that does not interfere with what matters to the older adult patient, mobility, or mentation across settings of care. Goal: Patient will be screened for high-risk medications once per stay Description: Interventions: 1. Pharmacist to perform medication review to screen for high-risk medications 2. Pharmacist to identify high-risk medications in the Plan of Care note 3. Pharmacist to make recommendations for follow-up in the Plan of Care note, if warranted Outcome: Completed Note: Medications individually and in combination may interfere with What Matters, Mentation, and safe Mobility because of the increased risk of confusion, delirium, unsteadiness and falls. Profile review indicates this patients has active orders for benzodiazepines (clonazepam). Chart review also s hows no change in renal function. [facility] Progress note* PT/OT/SYSTEM ARCHITECT - Sarah Beth Kasper PTA - 02/27/2025 9:34 AM EDT Physical Therapy Treatment Discharge Recommendations for Safe Patient Transition PT Discharge Disposition Recommendation: Post acute - moderate PT Post Acute Moderate Rehab Needs: Recommend moderate intensity rehab Floor Scrubber Support for-: Mobility Deficits, ADL Deficits 6 Clicks: Basic Mobility Turning from your back to your side while in a flat bed without using bed rails?: A little Moving from lying on your back to sitting on side of flat bed without using bed rails?: A little Moving to and from bed to a chair (including w/c)?: A little Standing up from a chair using your arms (e.g. w/c or bedside chair)?: A little To walk in hospital room?: A little Climbing 3-5 steps with a railing?: A lot Scoring 6 Clicks: Basic Mobility Raw Score: 17 CMS G Code Modifier: CK PT Treatment/Interventions: ADL retraining, Functional transfer training, LE strengthening/ROM, Endurance training, Stair training, Balance, Bed mobility, Gait training PT Frequency: 5-6days/week PT Duration: 10 days Assessment Patient Assessment Therapy Problem List: Abnormal posture, Decreased ADL status, Decreased balance, Decreased endurance, Decreased high-level ADLs, Decreased mobility, Decreased safe judgement during ADL, Decreased LE ROM, Decreased LE strength Patient Response to Treatment: Slow progress, decreased activity tolerance, Progressing toward goals Mood/Affect: Appropriate for circumstances Rehab Prognosis: Good, With continued PT status post acute discharge Visit RN Communication: Yes Medical Record Reviewed: Yes PT Type of Visit: Treatment Precautions Activity: Early mobility: pass. Appropriate at to tx per Rosario KONG. Equipment: RW, gait belt, nonskid socks. Weight Bearing Status: WBAT on RLE Telemetry/Digital Editor: Yes Oxygen Used: Room air. Other: Mildly displaced R pubic bone fracutre, nondiscplaced fracture of ischial tuberosity. Per ortho, patient can be WBAT on RLE. Pain Assessment Pain Assessment: 0-10 Pain Score: 8 Pain Location: Pelvis Pain Orientation: Right, Left Pain Radiating Towards: R foot Pain Descriptors: Sharp, Discomfort, Sore Pain Intervention(s): Repositioned, Ambulation/increased activity, Distraction, Emotional support Hearing / Speech / Vision Hearing: Within Functional Limits Speech: Within Functional Limits Bed Mobility Supine to Sit: Min assist, Right (HOB elevated; Assist for upper body progression.) Sit to Supine: Min assist, Right (HOB flat; Assist for LE progression.) Other: Patient performed bed mobility of supine to/from seated positions, min assist dependent on transition moving into. Verbal and tactile cues expressed of body mechanics and use of bedrails to assist in transition ease. (Extended time required to complete, patient goal oriented to attempt majority of transition on own.) Transfers Sit to Stand: Min assist (RW.) Stand to Sit: Min assist Toilet Transfers: Min assist Other: Patient performed multiple sit to stand transfers from various surfaces, min assist with ample amount of time required. Verbal cues expressed of proper hand placement for improved transfer ease and safety. Gait Base of Support: Narrow Pattern: Decreased neris, R Decreased heel strike, L Decreased heel strike, R Decreased foot clearance, L Decreased foot clearance, Forward trunk, R Decreased stance time Gait Assistance: Contact guard assist Assistive Device: Rolling walker Gait Distance: 15' x2 (Bed to/from bathroom.) Limiting Factors to Gait: Fatigue, Weakness, Decreased safety, Pain Included Uneven Surface: Yes 2 Turns: Yes Other: Patient gait trained with use of RW as AD, CGA for patient safety. Verbal cues expressed of increased step length and upright posture for improve gait pattern and safety in environment. (Slow steady neris noted.) Balance Sitting Balance: Static: Good Sitting Balance: Dynamic: Fair (+) Standing Balance: Static: Fair Standing Balance: Dynamic: Fair (-) Other: B UE support required throughout standing tasks to assist patient in maintaining balance during standing tasks. No increased unsteadiness noted to cause LOB to occur. Activity Tolerance Endurance: Tolerates >30 minutes activity with rest breaks Other: Rest breaks required PRN during duration of therapy session secondary to fatigue, generalized weakness and symptoms of pain. Ample time spent between functional tasks in preparation. Patient goal oriented on doing majority on own. Patient in bed surface with HOB elevated to patient comfort; Call light/tray table within reach; Communicated with RN on summary of tx and patient location. Plan Physical Therapy Care Plan Physical Therapy Care Plan (Active) Template: PT - Physical Therapy Problem: Activity Tolerance Dates: Start: 02/26/25 Disciplines: PT Goal: Tolerate 30 minutes of activity WITH rest breaks Dates: Start: 02/26/25 Expected End: 03/07/25 Description: Goal Description: Disciplines: PT Outcomes Date/Time User Outcome 02/27/25 Mirian Kasper PTA Progressing Problem: Bed Mobility Dates: Start: 02/26/25 Disciplines: PT Goal: Patient will perform bed mobility with Supervision Dates: Start: 02/26/25 Expected End: 03/07/25 Description: Goal Description: Disciplines: PT Outcomes Date/Time User Outcome 02/27/25 Mirian Kasper PTA Progressing Problem: Gait Dates: Start: 02/26/25 Disciplines: PT Goal: Patient will perform gait with Stand By Assist Dates: Start: 02/26/25 Expected End: 03/07/25 Description: Pt will be able to ambulate 150 ft with walker and stand by assist to safely navigate household distances. Disciplines: PT Outcomes Date/Time User Outcome 02/27/25 1057 Sarah Beth Kasper PTA Progressing Goal Note filed on 02/27/25 105 by Sarah Beth Kasper PTA 15' x2 Problem: Stairs/Curb Dates: Start: 02/26/25 Disciplines: PT Goal: Patient will perform stairs/curb with Contact Guard Dates: Start: 02/26/25 Expected End: 03/07/25 Description: Pt will be able to ascend 5 steps with HR on L to safely enter household upon hospitaldischarge. Disciplines: PT Problem: Standing Balance Dates: Start: 02/26/25 Disciplines: PT Goal: Improve balance to good Dates: Start: 02/26/25 Expected End: 03/07/25 Description: Static Dynamic Disciplines: PT Outcomes Date/Time User Outcome 02/27/25 105 Sarah Beth Kasper PTA Progressing Problem: Transfers Dates: Start: 02/26/25 Disciplines: PT Goal: Patient will perform transfers with Supervision Dates: Start: 02/26/25 Expected End: 03/07/25 Description: Goal Description: Disciplines: PT Outcomes Date/Time User Outcome 02/27/25 105 Sarah Beth Kasper PTA Progressing Physical Therapy Care Plan (Resolved) There are no resolved problems. Principal Problem: Pubic bone fracture (CMS-HCC) Active Problems: Hypertension Paroxysmal atrial fibrillation (CMS-HCC) Presence of cardiac pacemaker- MDT Essential tremor Acquired hypothyroidism Cosigned by Apoorva Morales PT at 02/27/2025 12:11 PM EDT Associated attestation - Apoorva Morales PT - 02/27/2025 12:11 PM EDT I have reviewed and agree with this note and education documentation for this visit. [facility]09-21-2025 Plan of care note* Plan of Care - Bhavna Wilder RN - 02/27/2025 1:22 AM EDT Problem: Safety Goal: Patient will be injury free during hospitalization Description: INTERVENTIONS: 1. Assess patient's risk for falls and implement fall prevention plan of care per policy 2. Provide and maintain a safe environment 3. Proper use of double Identifiers 4. Medication administration using the 5 rights 5. Hand hygiene 6. Specimens are labeled at the bedside 7. Instruct patient/ patient admissions representative about use of safety devices 8. Include patient/ patient admissions representative in decisions related to safety Outcome: Progressing Note: Evaluation of progress towards goal: Pt is free of injury, safe environment provided and maintained, medication administered as ordered, hand hygiene completed. [facility]09-20-2025 Nurse Note* Lovely Alves RN - 02/26/2025 1:34 PM EDT Patient had home medications with her and took her own home medications on 02/25/25. Daughter statedthat she was taking home medications home with her on 02/25/25 so that they are not here and that she understands that patients can not use their own home medications. Document Review Specialist went to give medications ordered today and patient and daughter stated that she took her own medications. Daughter stated again that she will betaking medications home today. [facility]09-20-2025 Progress note* PT/OT/SYSTEM ARCHITECT - Apoorva Morales, PT - 02/26/2025 11:29 AM EDT Physical Therapy Evaluation Discharge Recommendations for Safe Patient Transition PT Discharge Disposition Recommendation: Post acute - moderate PT Post Acute Moderate Rehab Needs: Recommend moderate intensity rehab Floor Scrubber Support for-: Mobility Deficits, ADL Deficits Past Medical History: Diagnosis Date Abdominal cramping [...] Surgical History: Procedure Laterality Date BACK SURGERY 2012 CAGE BLEPHAROPLASTY OPHTH Bilateral 10/31/2017 Performed by Daksha Bull MD at [facility] BREAST BIOPSY Left 1960s BENIGN, cyst/tumor, in her 20's CARDIAC PACEMAKER PLACEMENT Left CATARACT EXTRACTION 2007 COLONOSCOPY 06/28/2016 COLONOSCOPY N/A 01/19/2020 Performed by Fermin Gamez MD at [facility] ENDOSCOPY Coronary angiogram and right heart and left ventricular gram/pressure N/A 09/09/2018 Performed by Solomon Piper MD at [facility] CARDIAC CATH LABS EGD with bx N/A 02/28/2020 Performed by Fermin Gamez MD at [facility] ENDOSCOPY EP - Device DC PPM Left 11/04/2018 Performed by Lori Yo MD at [facility] HRC (EP) FOOT SURGERY Bilateral little toes pins in toes, bones shaved down on outsides of both feet MINIMALLY INVASIVE MITRAL VALVE REPAIR 28MM FUTURE RING , MINIMALLY INVASIVE TRICUSPID VALVE [id number] CONTOUR 3D RING/ BHARAT N/A 10/30/2018 Performed by Edin Lima MD at [facility] SPINE SURGERY THYROIDECTOMY, PARTIAL TONSILLECTOMY child WRIST SURGERY Left Clicks: Basic Mobility Turning from your back to your side while in a flat bed without using bed rails?: A little Moving from lying on your back to sitting on side of flat bed without using bed rails?: A little Moving to and from bed to a chair (including w/c)?: A little Standing up from a chair using your arms (e.g. w/c or bedside chair)?: A little To walk in hospital room?: A little Climbing 3-5 steps with a railing?: A lot Scoring 6 Clicks: Basic Mobility Raw Score: 17 CMS G Code Modifier: CK Therapy Plan Need for skilled Physical Therapy to address deficits in functional mobility due to a status decline resulting from pubic bone fracture. PT Treatment/Interventions: ADL retraining, Functional transfer training, LE strengthening/ROM, Endurance training, Stair training, Balance, Bed mobility, Gait training PT Frequency: 5-6days/week PT Duration: 10 days Assessment Patient Assessment Therapy Problem List: Abnormal posture, Decreased ADL status, Decreased balance, Decreased endurance, Decreased high-level ADLs, Decreased mobility, Decreased safe judgement during ADL, Decreased LE ROM, Decreased LE strength Patient Response to Treatment: Tolerated evaluation without adverse reaction Mood/Affect: Appropriate for circumstances Visit RN Communication: Yes (Lovely) Medical Record Reviewed: Yes Activity Therapy Type of Visit: Activities Assessment PT Type of Visit: Evaluation Precautions Activity: Early mobility pass, OK to evaluate per Lovely KONG. Equipment: Walker, gait belt, non-skid socks Weight Bearing Status: WBAT on RLE Telemetry/Digital Editor: Yes Oxygen Used: Room air Other: Mildly displaced R pubic bone fracutre, nondiscplaced fracture of ischial tuberosity. Per ortho, patient can be WBAT on RLE. Subjective Physical Therapy Comments: I know I won't be able to go home like this Pain Assessment Pain Assessment: 0-10 Pain Score: 9 (with movements of RLE) Pain Location: Pelvis Pain Orientation: Right Pain Descriptors: Aching Pain Duration: Constant/continuous Pain Intervention(s): Medication (See MAR) Home Living Type of Home: House Home Layout: One level, Stairs to enter with rails Stairs to Enter: 5 Hand Rails: Left Bathroom Shower/Tub: Walk-in shower Bathroom Toilet: Raised Bathroom Equipment: Built-in shower seat, Hand-held shower Bathroom Accessibility: Accessible via walker Home Equipment: Rolling walker Other : Reports she ambulated with no AD prior to fall Prior Function Lives With: Alone (Spouse recently last August.) Receives Help From: Family (daughter is a nurse and lives close by) Level of Mobility: Independent with ADLs and functional transfers or gait Homemaking Assistance: Independent Other: Still drove, mowed her own lawn prior to fall. ADL / IADL Hand Dominance: Right Hearing / Speech / Vision Hearing: Within Functional Limits Speech: Within Functional Limits Current Vision: (wears one contact in left eye) Cognition Orientation Level: Oriented X4 Bed Mobility Supine to Sit: Min assist Sit to Supine: Min assist Other: Required min A to lift upper trunk with supine to sit. Increased time needed to move RLE dueto pain. Head of bed slightly elevated and use of bed rails needed. Transfers Sit to Stand: Min assist Stand to Sit: Min assist Other: Completed 1 sit to stand from edge of bed with min A. Was able to perform static stand for ~1 min before initiating gait with equal WB on B LE's. Gait Base of Support: Narrow Pattern: Decreased neris, R Decreased heel strike, L Decreased heel strike, R Decreased foot clearance, L Decreased foot clearance, Forward trunk, R Decreased stance time Gait Assistance: Contact guard assist Assistive Device: Rolling walker Gait Distance: 15 ft Limiting Factors to Gait: Fatigue, Weakness, Decreased safety, Pain 2 Turns: Yes Other: Patient reports increaed pain at R LE with gait, up to 8/10. Increased time needed with gaittraining due to pain. Balance Sitting Balance: Static: Good Sitting Balance: Dynamic: Good Standing Balance: Static: Fair Standing Balance: Dynamic: Fair, Poor RLE Assessment: Within Functional Limits LLE Assessment: Within Functional Limits Activity Tolerance Endurance: Tolerates <30 minutes activity with vital sign changes Plan Physical Therapy Care Plan Physical Therapy Care Plan (Active) Template: PT - Physical Therapy Problem: Activity Tolerance Dates: Start: 02/26/25 Disciplines: PT Goal: Tolerate 30 minutes of activity WITH rest breaks Dates: Start: 02/26/25 Expected End: 03/07/25 Description: Goal Description: Disciplines: PT Problem: Bed Mobility Dates: Start: 02/26/25 Disciplines: PT Goal: Patient will perform bed mobility with Supervision Dates: Start: 02/26/25 Expected End: 03/07/25 Description: Goal Description: Disciplines: PT Problem: Gait Dates: Start: 02/26/25 Disciplines: PT Goal: Patient will perform gait with Stand By Assist Dates: Start: 02/26/25 Expected End: 03/07/25 Description: Pt will be able to ambulate 150 ft with walker and stand by assist to safely navigate household distances. Disciplines: PT Problem: Stairs/Curb Dates: Start: 02/26/25 Disciplines: PT Goal: Patient will perform stairs/curb with Contact Guard Dates: Start: 02/26/25 Expected End: 03/07/25 Description: Pt will be able to ascend 5 steps with HR on L to safely enter household upon hospitaldischarge. Disciplines: PT Problem: Standing Balance Dates: Start: 02/26/25 Disciplines: PT Goal: Improve balance to good Dates: Start: 02/26/25 Expected End: 03/07/25 Description: Static Dynamic Disciplines: PT Problem: Transfers Dates: Start: 02/26/25 Disciplines: PT Goal: Patient will perform transfers with Supervision Dates: Start: 02/26/25 Expected End: 03/07/25 Description: Goal Description: Disciplines: PT Physical Therapy Care Plan (Resolved) There are no resolved problems. Principal Problem: Pubic bone fracture ([facility]) [facility]09-20-2025 Plan of care note* Plan of Care - Lovely Alves RN - 02/26/2025 9:30 AM EDT Problem: Pain Goal: Patient goal is pain score less than 4, able to rest, and participant in treatment plan as appropriate Description: INTERVENTIONS: 1. Encourage patient or legal admissions representative to report early pain and ask for pain medicine when needed 2. Assess pain using appropriate pain scale and include the scale used when documenting 3. Administer analgesics based on type and severity of pain and evaluate response within appropriate time frame 4. Implement non-pharmacological measures as appropriate and evaluate response 5. Consider cultural and social influences on pain and pain management 6. Notify LIP if interventions ineffective or patient reports new pain 7. Monitor vital signs including pulse ox, end-tidal CO2 based on pain intervention 8. Reassess pain per policy 9. Teach patient or legal admissions representative interventions for comforting Outcome: Progressing Note: Evaluation of progress towards goal: Pt encouraged to report early pain, non pharmacological measures implemented as needed. Pt able to report pain according to 0/10 pain scale. Medicating patient for pain per orders. Problem: Safety Goal: Patient will be injury free during hospitalization Description: INTERVENTIONS: 1. Assess patient's risk for falls and implement fall prevention plan of care per policy 2. Provide and maintain a safe environment 3. Proper use of double Identifiers 4. Medication administration using the 5 rights 5. Hand hygiene 6. Specimens are labeled at the bedside 7. Instruct patient/ patient admissions representative about use of safety devices 8. Include patient/ patient admissions representative in decisions related to safety Outcome: Progressing Note: Evaluation of progress towards goal: Pt's risk for falls assessed and fall prevention implemented as needed, safe environment provided and maintained, hand hygiene completed. Problem: Infection Goal: Absence of infection during hospitalization Description: INTERVENTIONS 1. Assess and monitor for signs and symptoms of infection. 2. Monitor lab/diagnostic results. 3. Monitor all insertion sites i.e., indwelling lines, tubes and drains. 4. Monitor endotracheal (as able) and nasal secretions for changes in amount and color. 5. Administer medications as ordered. 6. Instruct and encourage patient and family to use good hand hygiene technique. 7. Identify and instruct patient/patient admissions representative in use of appropriate isolation precautionsfor identified infection/symptoms. 8. Provide and discuss with patient/patient admissions representative on educational MDRO sheet. 9. Encourage and monitor nutritional status daily and consult broadcast maintenance engineer if indicated. 10. Implement neutropenic guidelines as needed. Outcome: Progressing Note: Evaluation of progress towards goal: Pt assessed and monitored for signs and symptoms of infection, lab and diagnostic results monitored as needed, administer medications as needed. Problem: Knowledge Deficit Goal: Patient/patient admissions representative demonstrates understanding of disease process, treatment plan,medications, and discharge instructions Description: INTERVENTIONS 1. Complete learning assessment and assess knowledge base 2. Provide teaching at level of understanding 3. Provide teaching via preferred learning method(s) Outcome: Progressing Note: Evaluation of progress towards goal: Pt learning and knowledge base assessed, teaching provided at an understandable level as needed, teaching provided via preferred learning method. [facility]09-20-2025 History and physical note* Harriett Alberts MD - 02/26/2025 9:00 AM EDT Images from the original note were not included. [facility] INTERNAL MEDICINE [facility] - [facility] [address] [place] [phone] Hospital Medicine History & Physical Patient: Ayana Alves Date of : 1940 Room: PCP: HALIMA HOOKS MD Admission date: 02/25/2025 9:33 AM Encounter date: 02/26/25 Hospital Day: 2 SUBJECTIVE Ayana Alves is a 85 y.o. female who presents with mechanical fall. Patient was walking her dog when she tripped because her dog saw a CAT began around and pulled her down. Patient stated she fellonto her right side. Did not lose consciousness. Was able to get herself back into her house and called EMS. Does not Plavix at home. Has a past medical history of hypertension, hypothyroidism, migraines. X-ray elbow negative for acute osseous abnormality did reveal focal soft tissue swelling. CT brain negative. CT lumbar spine- Prior L4 laminectomy. Transpedicular screws placed for fusion of L4-L5. Intervertebral disc spacing material is also noted. Hardware appears well incorporated into the bone and free of any acute complication. Bony fusion is noted along the left facets.Underlying levoscoliosis is appreciated. No CT evidence of acute vertebral body fracture. No loss in height. Arthrosis isnoted. No spondylolysis. The bone trabeculation is poor. This does hamper assessment of nondisplaced fractures. If pain or concern persists consider follow-up MR imaging. Vacuum disc phenomenon with disc space narrowing is appreciated at L2-3 and L1-2. SI joints appear symmetric. The abdominal aorta is tortuous. Atherosclerotic disease is noted. Psoas muscles appear symmetric. CT pelvis-There is acute appearing mildly displaced fracture of the right pubic bone and nondisplaced fracture of the right ischial tuberosity. Overall labwork unremarkable did reveal slightly elevated glucose at 100. Admitted for a pubic bone fracture. Allergies: Celecoxib, Other, Pantoprazole, and Sulfa (sulfonamide antibiotics) Prior to Admission medications Medication Sig Start Date End Date Taking? Authorizing Provider clonazePAM (KlonoPIN) 0.5 mg tablet TAKE 1 TABLET (0.5 MG TOTAL) BY MOUTH 2 (TWO) TIMES A DAY NEEDED FOR ANXIETY. 02/13/25 Yes Halima Hooks MD clopidogreL (PLAVIX) 75 mg tablet TAKE 1 TABLET BY MOUTH EVERY DAY 11/14/24 Yes Mouna Doe MD ipratropium (ATROVENT) 42 mcg (0.06 %) nasal spray Administer 1 spray into each nostril in the morning. 01/23/25 Yes Hailma Hooks MD levothyroxine (SYNTHROID, LEVOTHROID) 50 MCG tablet TAKE 1 TABLET BY MOUTH EVERY DAY IN THE MORNINGON EMPTY STOMACH FOR 90 DAYS 06/28/24 Yes Deepika Garcia MD liothyronine (CYTOMEL) 5 MCG tablet TAKE 1 TABLET BY MOUTH EVERY DAY ON AN EMPTY STOMACH 06/11/24 YesMegha Alatorre APRN-LEGAL WRITING PROFESSOR spironolactone (ALDACTONE) 25 mg tablet Take 1 tablet (25 mg total) by mouth in the morning. Yes Not In System Ref Prov hydrocortisone (ANUSOL-HC) 2.5 % rectal cream Insert 1 Application into the rectum in the morning and 1 Application before bedtime. 01/23/25 Halima Hooks MD Lactobacillus acidophilus (PROBIOTIC ORAL) Take by mouth. Not In System Ref Prov VITAMIN D3 125 mcg (5,000 unit) tablet TAKE 1 TABLET BY MOUTH EVERY DAY IN THE MORNING 04/29/24 Deepika Garcia MD Code Status: Full Code Past Medical History: Patient has a past medical history of Abdominal cramping, Anxiety, Arthritis, Breast disorder, Cataract, Diarrhea, GREENE (dyspnea on exertion), Facial tic, Fractures, Hypertension, Hypothyroidism, Memory loss, Migraine headache, Mitral valve prolapse, Osteopenia, PONV (postoperative nausea and vomiting), UTI (urinary tract infection), Visual impairment, and Wears contact lenses. Past Surgical History: Patient has a past surgical history that includes Thyroidectomy, partial (); Colonoscopy (06/28/2016); Foot surgery (Bilateral, ); Wrist surgery (Left, ); Back surgery (2011); Breast biopsy (Left, ); Eye surgery (Bilateral, 10/31/2017); Cardiac catheterization (N/A, 09/09/2018); Ton sillectomy (child); Cataract extraction (2007); Mitral valve surgery (N/A, 10/30/2018); Cardiac electrophysiology procedure (Left, 11/04/2018); Spine surgery; Colonoscopy (N/A, 01/19/2020); Cardiac pacemaker placement (Left); and Esophagogastroduodenoscopy (N/A, 02/28/2020). Family History: Patient's family history includes Alcohol abuse in her mother; Arthritis in her father and mother; Asthma in her father; Clotting disorder in her father; Colon cancer in her father; Dementia in her mother; Heart attack in her father; Hyperlipidemia in her father; Hypertension in her father and mother; Mental illness in her mother; Migraines in her mother; Stroke in her mother; Ulcerative colitis in her mother. Social History: Patient reports that she quit smoking about 62 years ago. Her smoking use included cigarettes. She started smoking about 69 years ago. She has a 7 pack- year smoking history. She has never used smokeless tobacco. She reports current alcohol use. She reports that she does not use drugs. Review of Systems Constitutional: Negative for chills and fever. HENT: Negative for ear pain and sore throat. Eyes: Negative for pain and visual disturbance. Respiratory: Negative for cough and shortness of breath. Cardiovascular: Negative for chest pain and palpitations. Gastrointestinal: Negative for abdominal pain and vomiting. Genitourinary: Negative for dysuria and hematuria. Musculoskeletal: Negative for arthralgias and back pain. Skin: Negative for color change and rash. Neurological: Negative for seizures and syncope. All other systems reviewed and are negative. OBJECTIVE BP 132/46 Pulse 59 Temp 36.6 C (97.9 F) Resp 18 Ht 152.4 cm (5') Wt 56.7 kg (125 lb) SpO2 97% BMI 24.41 kg/m Temp: [36.6 C (97.8 F)-36.7 C (98 F)] 36.6 C (97.9 F) Pulse: [55-80] 59 Resp: [16-18] 18 BP: (122-145)/(46-96) 132/46 SpO2: [94 %-97 %] 97 % O2 Device: None (Room air) O2 Flow Rate (L/min): [0 L/min] 0 L/min Intake/Output Summary (Last 24 hours) at 02/26/2025 1129 Last data filed at 02/26/2025 0916 Gross per 24 hour Intake 240 ml Output 650 ml Net -410 ml Physical Exam Constitutional: Appearance: She is well-developed. HENT: Head: Normocephalic and atraumatic. Nose: Nose normal. Eyes: Pupils: Pupils are equal, round, and reactive to light. Cardiovascular: Rate and Rhythm: Normal rate and regular rhythm. Heart sounds: Normal heart sounds. No murmur heard. Pulmonary: Effort: Pulmonary effort is normal. No respiratory distress. Breath sounds: Normal breath sounds. No wheezing. Abdominal: General: Bowel sounds are normal. Palpations: Abdomen is soft. Tenderness: There is no abdominal tenderness. Musculoskeletal: General: Signs of injury present. Normal range of motion. Cervical back: Neck supple. Comments: Pubic fracture Lymphadenopathy: Cervical: No cervical adenopathy. Skin: General: Skin is warm and dry. Findings: No rash. Neurological: Mental Status: She is alert and oriented to person, place, and time. Cranial Nerves: No cranial nerve deficit. Medications Scheduled: enoxaparin (LOVENOX) injection, 40 mg, subcutaneous, Daily sodium chloride, 3 mL, intravenous, Q12H GAVIN Infusions: dextrose 5 % in water, 100 mL/hr sodium chloride 0.9 %, 20 mL/hr As Needed: acetaminophen alum-mag hydroxide-simeth dextrose dextrose 5 % in water dextrose 50 % in water (D50W) glucagon (human recombinant) magnesium sulfate magnesium sulfate ondansetron potassium chloride OR potassium chloride OR potassium chloride IV (Adult) sennosides-docusate sodium sodium chloride sodium chloride sodium chloride 0.9 % Allergies: Celecoxib, Other, Pantoprazole, and Sulfa (sulfonamide antibiotics) Labs Recent Results (from the past 24 hours) CBC auto differential Collection Time: 02/25/25 12:21 PM Result Value Ref Range WBC 8.4 4 - 11 x10E9/L RBC Count 4.32 3.8 - 5.2 X10E12/L Hemoglobin 12.5 11.7 - 15.5 g/dL Hematocrit 37.1 35 - 47 % MCV 86 80 - 100 fL MCH 29.0 27 - 34 pg MCHC 33.7 32 - 36 g/dL RDW 13.3 11.5 - 15 % Platelet Count 161 150 - 450 X10E9/L MPV 8.5 7 - 12 fL Neutrophils % 87.3 % Lymphocytes % 6.5 % Monocytes % 5.3 % Eosinophils % 0.7 % Basophils % 0.2 % Neutrophils Absolute (A) 7.3 (H) 1.5 - 6.6 10*3/uL Lymphocytes Absolute 0.5 (L) 1.0 - 3.5 10*3/uL Monocytes Absolute 0.4 0.0 - 0.9 10*3/uL Eosinophils Absolute 0.1 0.0 - 0.4 10*3/uL Basophils Absolute 0.0 0.0 - 0.2 10*3/uL Differential Type AUTOMATED DIFFERENTIAL Basic Metabolic Panel Collection Time: 02/25/25 12:21 PM Result Value Ref Range SODIUM 142 134 - 146 mmol/L POTASSIUM 3.8 3.5 - 5.0 mmol/L CHLORIDE 109 98 - 109 mmol/L CARBON DIOXIDE 25 22 - 32 mmol/L ANION GAP 8 5 - 15 mmol/L BLOOD UREA NITROGEN 17 5 - 27 mg/dL CREATININE 0.85 0.40 - 1.00 mg/dL GLUCOSE 100 (H) 65 - 99 mg/dL CALCIUM 10.0 8.5 - 10.5 mg/dL EGFR Non-Race Dependent 68 >=60 ml/min/1.73sq.m Extra Tubes Collection Time: 02/25/25 12:21 PM Narrative The following orders were created for panel order Extra Tubes. Procedure Abnormality Status --------- ------ Light b-datum [facility][[id number]] Final result Please view results for these tests on the individual orders. Light Blue Top Collection Time: 02/25/25 12:21 PM Result Value Ref Range Extra Tube Auto Resulted Extra Urine Collection Time: 02/25/25 1:18 PM Specimen: Urine, Clean Catch Midstream Result Value Ref Range Extra Tube Auto Resulted Extra Urine Culture Collection Time: 02/25/25 1:18 PM Specimen: Urine, Clean Catch Midstream Result Value Ref Range Extra Tube Auto Resulted Extra Urine [place] Collection Time: 02/25/25 1:18 PM Specimen: Urine, Clean Catch Midstream Result Value Ref Range Extra Tube Auto Resulted POCT Nursing Urine Macroscopic UA Collection Time: 02/25/25 1:20 PM Result Value Ref Range POC Urine Specific [place] 1.010 1.010, 1.015, 1.020, 1.025 POC Urine Leukocyte Esterase Negative Negative POC Urine Nitrite Negative Negative POC Urine pH 7.0 5.0, 6.0, 6.5, 7.0, 7.5, 8.0, 8.5, 5.5 POC Urine Protein Negative Negative POC Urine Glucose Negative Negative POC Urine Ketones Negative Negative POC Urine Urobilinogen 0.2 E.U./dL POC Urine Bilirubin Negative Negative POC Urine Blood/HGB Negative Negative Extra Tubes Collection Time: 02/26/25 5:25 AM Narrative The following orders were created for panel order Extra Tubes. Procedure Abnormality Status --------- ------ Light b-datum [facility][[id number]] Final result Please view results for these tests on the individual orders. Light Blue Top Collection Time: 02/26/25 5:25 AM Result Value Ref Range Extra Tube Auto Resulted Comprehensive metabolic panel Collection Time: 02/26/25 5:26 AM Result Value Ref Range SODIUM 141 134 - 146 mmol/L POTASSIUM 3.7 3.5 - 5.0 mmol/L CHLORIDE 111 (H) 98 - 109 mmol/L CARBON DIOXIDE 23 22 - 32 mmol/L ANION GAP 7 5 - 15 mmol/L BLOOD UREA NITROGEN 13 5 - 27 mg/dL CREATININE 0.70 0.40 - 1.00 mg/dL GLUCOSE 95 65 - 99 mg/dL CALCIUM 9.5 8.5 - 10.5 mg/dL TOTAL PROTEIN 5.9 (L) 6.0 - 8.0 g/dL ALBUMIN 3.6 3.2 - 5.3 g/dL ALKALINE PHOSPHATASE 47 39 - 130 U/L AST 20 <=41 U/L ALT 19 <=31 U/L BILIRUBIN,TOTAL 1.1 0.3 - 1.2 mg/dL EGFR Non-Race Dependent 85 >=60 ml/min/1.73sq.m Magnesium Collection Time: 02/26/25 5:26 AM Result Value Ref Range MAGNESIUM 2.1 1.8 - 2.6 mg/dL CBC auto differential Collection Time: 02/26/25 5:26 AM Result Value Ref Range WBC 5.3 4 - 11 x10E9/L RBC Count 4.16 3.8 - 5.2 X10E12/L Hemoglobin 12.2 11.7 - 15.5 g/dL Hematocrit 35.5 35 - 47 % MCV 85 80 - 100 fL MCH 29.3 27 - 34 pg MCHC 34.4 32 - 36 g/dL RDW 13.2 11.5 - 15 % Platelet Count 138 (L) 150 - 450 X10E9/L MPV 8.5 7 - 12 fL Neutrophils % 76.6 % Lymphocytes % 12.1 % Monocytes % 7.3 % Eosinophils % 3.7 % Basophils % 0.3 % Neutrophils Absolute (A) 4.1 1.5 - 6.6 10*3/uL Lymphocytes Absolute 0.6 (L) 1.0 - 3.5 10*3/uL Monocytes Absolute 0.4 0.0 - 0.9 10*3/uL Eosinophils Absolute 0.2 0.0 - 0.4 10*3/uL Basophils Absolute 0.0 0.0 - 0.2 10*3/uL Differential Type AUTOMATED DIFFERENTIAL Radiology CT pelvis without contrast Result Date: 02/25/2025 Narrative: STUDY: PELVIS CT WITHOUT CONTRAST CLINICAL HISTORY: Pelvic pain COMPARISON: 10/23/2018 TECHNIQUE: CT pelvis was performed utilizing 5 mm axial reconstructions without contrast. Coronal and sagittal reformatted images were obtained and reviewed. Automated exposure control was utilized. FINDINGS: Streak artifact resulting from lumbar fusion hardware with multilevel degenerative disc disease. There is degenerative changes of the bilateral sacroiliac joints with degenerative changes of the bilateral hips. There is no definitive acute process, fracture or dislocation. 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 Acute- appearing mildly displaced fracture of the right pubic bone and non-displaced fracture of the right ischial tuberosity. . If the patient is unable to bear weight or if there is concern for nondisplaced hip fracture, consider correlation with MRI. IMPRESSION: 1. There is acute appearing mildly displaced fracture of the right pubic bone and nondisplaced fracture of the right ischial tuberosity. All CT scans at this facility use dose modulation, iterative reconstruction, and/or weight based dosing when appropriate to reduce radiation dose to as low as reasonably achievable. Finalized by Edin Bedolla MD on 02/25/2025 11:[address] lumbar spine without contrast Result Date: 02/25/2025 Narrative: Study: Ct Lumbar spine History: Recent fall. Pain after trauma Technique: Axial images from the lower thoracic spine through the lumbar spine were obtained followed by sagittal and coronalreconstructed images. Findings/impression: Prior L4 laminectomy. Transpedicular screws placed for fu marybeth of L4-L5. Intervertebral disc spacing material is also noted. Hardware appears well incorporated into the bone and free of any acute complication. Bony fusion is noted along the left facets. Underlying levoscoliosis is appreciated. No CT evidence of acute vertebral body fracture. No loss in height. Arthrosis is noted. No spondylolysis. The bone trabeculation is poor. This does hamper assessment of nondisplaced fractures. If pain or concern persists consider follow-up MR imaging. Vacuum disc phenomenon with disc space narrowing is appreciated at L2-3 and L1-2. SI joints appear symmetric. The abdominal aorta is tortuous. Atherosclerotic disease is noted. Psoas muscles appear symmetric All CT scans at this facility use dose modulation, iterative reconstruction, and/or weight based dosing when appropriate to reduce radiation dose to as low as reasonably achievable. Workstation:[id number] by Rosario Stauffer MD on 02/25/2025 11:[address] brain without contrast Result Date: 02/25/2025 Narrative: CT BRAIN WO CONT CLINICAL INFORMATION: fall, on plavix, no LOC COMPARISON: 05/16/2022. PROCEDURE: Routine CT Head obtained without contrast. All CT scans at this facility use dose modulation, iterative reconstruction, and/or weight based dosing when appropriate to reduce radiation dose toas low as reasonably achievable. FINDINGS: No acute intracranial hemorrhage. No mass effect or midline shift. No extra axial fluid collection. No hydrocephalus. Mathias-white differentiation is preserved. No depressed calvarial fracture. IMPRESSION: * No acute intracranial findings by CT. Finalized by Hua Bradley MD on 02/25/2025 10:55 AM X-ray elbow right 2 views Result Date: 02/25/2025 Narrative: XR ELBOW RT 2 VWS HISTORY: Fall, right elbow pain and swelling COMPARISON: 12/01/2023 FINDINGS: No acute fracture or malalignment. Joint spaces are well-preserved. No joint effusion. Focal soft tissue swelling overlying the dorsal proximal ulna. IMPRESSION: * No acute osseous abnormality.* Focal soft tissue swelling over the proximal dorsal ulna. Approved by Resident: Segundo Armstrong MD on 02/25/2025 10:27 AM I, Edin Bedolla MD have personally reviewed the image(s) and agree with and/or edited the report Finalized by Edin Bedolla MD on 02/25/2025 10:28 AM HOSPITAL PROBLEM LIST Principal Problem: Pubic bone fracture (CMS-HCC) Active Problems: Hypertension Paroxysmal atrial fibrillation (CMS-HCC) Presence of cardiac pacemaker- MDT Essential tremor Acquired hypothyroidism ASSESSMENT & PLAN Pubic bone fracture P.r.n. 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 Chart reviewed. Admission orders placed. Home medications reconciled. DVT/VTE prophylaxis: SCD and enoxaparin. GI prophylaxis: not indicated. PT/OT to evaluate and treat. DC planning: tbd. Medically Ready for Discharge: Anticipated in 2-4 Days [facility] Cardoza 02/26/2025 11:29 AM [facility] 7AM-7PM & 7PM-7AM: EpicChat or page through On[employer]. [facility] Cardoza 02/26/25 1405 PT/OT Will need SNF Pain control Ortho follow up DVT prophylaxis Not on AC for p afib. Reviewed cardiology notes. Low clot burden and AC was not recommended Attending Attestation: I, Dr. Harriett Alberts, personally performed the face to face diagnostic evaluation on this patient. All labs , xrays reviewed. I have reviewed the SARAH's History, Exam and MDM and agree with the assessment and plan as written. Harriett Alberts MD [facility]09-20-2025 History and physical note* Harriett Alberts MD - 02/26/2025 9:00 AM EDT Images from the original note were not included. [facility] INTERNAL MEDICINE [facility] [address] [phone] Hospital Medicine History & Physical Patient: Ayana Alves Date of : 1940 Room: PCP: HALIMA HOOKS MD Admission date: 02/25/2025 9:33 AM Encounter date: 02/26/25 Hospital Day: 2 SUBJECTIVE Ayana Alves is a 85 y.o. female who presents with mechanical fall. Patient was walking her dog when she tripped because her dog saw a CAT began around and pulled her down. Patient stated she fellonto her right side. Did not lose consciousness. Was able to get herself back into her house and called EMS. Does not Plavix at home. Has a past medical history of hypertension, hypothyroidism, migraines. X-ray elbow negative for acute osseous abnormality did reveal focal soft tissue swelling. CT brain negative. CT lumbar spine- Prior L4 laminectomy. Transpedicular screws placed for fusion of L4-L5. Intervertebral disc spacing material is also noted. Hardware appears well incorporated into the bone and free of any acute complication. Bony fusion is noted along the left facets.Underlying levoscoliosis is appreciated. No CT evidence of acute vertebral body fracture. No loss in height. Arthrosis isnoted. No spondylolysis. The bone trabeculation is poor. This does hamper assessment of nondisplaced fractures. If pain or concern persists consider follow-up MR imaging. Vacuum disc phenomenon with disc space narrowing is appreciated at L2-3 and L1-2. SI joints appear symmetric. The abdominal aorta is tortuous. Atherosclerotic disease is noted. Psoas muscles appear symmetric. CT pelvis-There is acute appearing mildly displaced fracture of the right pubic bone and nondisplaced fracture of the right ischial tuberosity. Overall labwork unremarkable did reveal slightly elevated glucose at 100. Admitted for a pubic bone fracture. Allergies: Celecoxib, Other, Pantoprazole, and Sulfa (sulfonamide antibiotics) Prior to Admission medications Medication Sig Start Date End Date Taking? Authorizing Provider clonazePAM (KlonoPIN) 0.5 mg tablet TAKE 1 TABLET (0.5 MG TOTAL) BY MOUTH 2 (TWO) TIMES A DAY NEEDED FOR ANXIETY. 02/13/25 Yes Halima Hooks MD clopidogreL (PLAVIX) 75 mg tablet TAKE 1 TABLET BY MOUTH EVERY DAY 11/14/24 Yes Mouna Doe MD ipratropium (ATROVENT) 42 mcg (0.06 %) nasal spray Administer 1 spray into each nostril in the morning. 01/23/25 Yes Halima Hooks MD levothyroxine (SYNTHROID, LEVOTHROID) 50 MCG tablet TAKE 1 TABLET BY MOUTH EVERY DAY IN THE MORNINGON EMPTY STOMACH FOR 90 DAYS 06/28/24 Yes Deepika Garcia MD liothyronine (CYTOMEL) 5 MCG tablet TAKE 1 TABLET BY MOUTH EVERY DAY ON AN EMPTY STOMACH 06/11/24 YesMehga Alatorre APRN-LEGAL WRITING PROFESSOR spironolactone (ALDACTONE) 25 mg tablet Take 1 tablet (25 mg total) by mouth in the morning. Yes Not In System Ref Prov hydrocortisone (ANUSOL-HC) 2.5 % rectal cream Insert 1 Application into the rectum in the morning and 1 Application before bedtime. 01/23/25 Halima Hooks MD Lactobacillus acidophilus (PROBIOTIC ORAL) Take by mouth. Not In System Ref Prov VITAMIN D3 125 mcg (5,000 unit) tablet TAKE 1 TABLET BY MOUTH EVERY DAY IN THE MORNING 04/29/24 Deepika Garcia MD Code Status: Full Code Past Medical History: Patient has a past medical history of Abdominal cramping, Anxiety, Arthritis, Breast disorder, Cataract, Diarrhea, GREENE (dyspnea on exertion), Facial tic, Fractures, Hypertension, Hypothyroidism, Memory loss, Migraine headache, Mitral valve prolapse, Osteopenia, PONV (postoperative nausea and vomiting), UTI (urinary tract infection), Visual impairment, and Wears contact lenses. Past Surgical History: Patient has a past surgical history that includes Thyroidectomy, partial (); Colonoscopy (06/28/2016); Foot surgery (Bilateral, ); Wrist surgery (Left, ); Back surgery (2011); Breast biopsy (Left, ); Eye surgery (Bilateral, 10/31/2017); Cardiac catheterization (N/A, 09/09/2018); Ton sillectomy (child); Cataract extraction (2007); Mitral valve surgery (N/A, 10/30/2018); Cardiac electrophysiology procedure (Left, 11/04/2018); Spine surgery; Colonoscopy (N/A, 01/19/2020); Cardiac pacemaker placement (Left); and Esophagogastroduodenoscopy (N/A, 02/28/2020). Family History: Patient's family history includes Alcohol abuse in her mother; Arthritis in her father and mother; Asthma in her father; Clotting disorder in her father; Colon cancer in her father; Dementia in her mother; Heart attack in her father; Hyperlipidemia in her father; Hypertension in her father and mother; Mental illness in her mother; Migraines in her mother; Stroke in her mother; Ulcerative colitis in her mother. Social History: Patient reports that she quit smoking about 62 years ago. Her smoking use included cigarettes. She started smoking about 69 years ago. She has a 7 pack- year smoking history. She has never used smokeless tobacco. She reports current alcohol use. She reports that she does not use drugs. Review of Systems Constitutional: Negative for chills and fever. HENT: Negative for ear pain and sore throat. Eyes: Negative for pain and visual disturbance. Respiratory: Negative for cough and shortness of breath. Cardiovascular: Negative for chest pain and palpitations. Gastrointestinal: Negative for abdominal pain and vomiting. Genitourinary: Negative for dysuria and hematuria. Musculoskeletal: Negative for arthralgias and back pain. Skin: Negative for color change and rash. Neurological: Negative for seizures and syncope. All other systems reviewed and are negative. OBJECTIVE BP 132/46 Pulse 59 Temp 36.6 C (97.9 F) Resp 18 Ht 152.4 cm (5') Wt 56.7 kg (125 lb) SpO2 97% BMI 24.41 kg/m Temp: [36.6 C (97.8 F)-36.7 C (98 F)] 36.6 C (97.9 F) Pulse: [55-80] 59 Resp: [16-18] 18 BP: (122-145)/(46-96) 132/46 SpO2: [94 %-97 %] 97 % O2 Device: None (Room air) O2 Flow Rate (L/min): [0 L/min] 0 L/min Intake/Output Summary (Last 24 hours) at 02/26/2025 1129 Last data filed at 02/26/2025 0916 Gross per 24 hour Intake 240 ml Output 650 ml Net -410 ml Physical Exam Constitutional: Appearance: She is well-developed. HENT: Head: Normocephalic and atraumatic. Nose: Nose normal. Eyes: Pupils: Pupils are equal, round, and reactive to light. Cardiovascular: Rate and Rhythm: Normal rate and regular rhythm. Heart sounds: Normal heart sounds. No murmur heard. Pulmonary: Effort: Pulmonary effort is normal. No respiratory distress. Breath sounds: Normal breath sounds. No wheezing. Abdominal: General: Bowel sounds are normal. Palpations: Abdomen is soft. Tenderness: There is no abdominal tenderness. Musculoskeletal: General: Signs of injury present. Normal range of motion. Cervical back: Neck supple. Comments: Pubic fracture Lymphadenopathy: Cervical: No cervical adenopathy. Skin: General: Skin is warm and dry. Findings: No rash. Neurological: Mental Status: She is alert and oriented to person, place, and time. Cranial Nerves: No cranial nerve deficit. Medications Scheduled: enoxaparin (LOVENOX) injection, 40 mg, subcutaneous, Daily sodium chloride, 3 mL, intravenous, Q12H GAVIN Infusions: dextrose 5 % in water, 100 mL/hr sodium chloride 0.9 %, 20 mL/hr As Needed: acetaminophen alum-mag hydroxide-simeth dextrose dextrose 5 % in water dextrose 50 % in water (D50W) glucagon (human recombinant) magnesium sulfate magnesium sulfate ondansetron potassium chloride OR potassium chloride OR potassium chloride IV (Adult) sennosides-docusate sodium sodium chloride sodium chloride sodium chloride 0.9 % Allergies: Celecoxib, Other, Pantoprazole, and Sulfa (sulfonamide antibiotics) Labs Recent Results (from the past 24 hours) CBC auto differential Collection Time: 02/25/25 12:21 PM Result Value Ref Range WBC 8.4 4 - 11 x10E9/L RBC Count 4.32 3.8 - 5.2 X10E12/L Hemoglobin 12.5 11.7 - 15.5 g/dL Hematocrit 37.1 35 - 47 % MCV 86 80 - 100 fL MCH 29.0 27 - 34 pg MCHC 33.7 32 - 36 g/dL RDW 13.3 11.5 - 15 % Platelet Count 161 150 - 450 X10E9/L MPV 8.5 7 - 12 fL Neutrophils % 87.3 % Lymphocytes % 6.5 % Monocytes % 5.3 % Eosinophils % 0.7 % Basophils % 0.2 % Neutrophils Absolute (A) 7.3 (H) 1.5 - 6.6 10*3/uL Lymphocytes Absolute 0.5 (L) 1.0 - 3.5 10*3/uL Monocytes Absolute 0.4 0.0 - 0.9 10*3/uL Eosinophils Absolute 0.1 0.0 - 0.4 10*3/uL Basophils Absolute 0.0 0.0 - 0.2 10*3/uL Differential Type AUTOMATED DIFFERENTIAL Basic Metabolic Panel Collection Time: 02/25/25 12:21 PM Result Value Ref Range SODIUM 142 134 - 146 mmol/L POTASSIUM 3.8 3.5 - 5.0 mmol/L CHLORIDE 109 98 - 109 mmol/L CARBON DIOXIDE 25 22 - 32 mmol/L ANION GAP 8 5 - 15 mmol/L BLOOD UREA NITROGEN 17 5 - 27 mg/dL CREATININE 0.85 0.40 - 1.00 mg/dL GLUCOSE 100 (H) 65 - 99 mg/dL CALCIUM 10.0 8.5 - 10.5 mg/dL EGFR Non-Race Dependent 68 >=60 ml/min/1.73sq.m Extra Tubes Collection Time: 02/25/25 12:21 PM Narrative The following orders were created for panel order Extra Tubes. Procedure Abnormality Status --------- ------ Light Blue Top[[id number]] Final result Please view results for these tests on the individual orders. Light Blue Top Collection Time: 02/25/25 12:21 PM Result Value Ref Range Extra Tube Auto Resulted Extra Urine Collection Time: 02/25/25 1:18 PM Specimen: Urine, Clean Catch Midstream Result Value Ref Range Extra Tube Auto Resulted Extra Urine Culture Collection Time: 02/25/25 1:18 PM Specimen: Urine, Clean Catch Midstream Result Value Ref Range Extra Tube Auto Resulted Extra Urine [place] Collection Time: 02/25/25 1:18 PM Specimen: Urine, Clean Catch Midstream Result Value Ref Range Extra Tube Auto Resulted POCT Nursing Urine Macroscopic UA Collection Time: 02/25/25 1:20 PM Result Value Ref Range POC Urine Specific [place] 1.010 1.010, 1.015, 1.020, 1.025 POC Urine Leukocyte Esterase Negative Negative POC Urine Nitrite Negative Negative POC Urine pH 7.0 5.0, 6.0, 6.5, 7.0, 7.5, 8.0, 8.5, 5.5 POC Urine Protein Negative Negative POC Urine Glucose Negative Negative POC Urine Ketones Negative Negative POC Urine Urobilinogen 0.2 E.U./dL POC Urine Bilirubin Negative Negative POC Urine Blood/HGB Negative Negative Extra Tubes Collection Time: 02/26/25 5:25 AM Narrative The following orders were created for panel order Extra Tubes. Procedure Abnormality Status --------- ------ Light Blue Top[[id number]] Final result Please view results for these tests on the individual orders. Light Blue Top Collection Time: 02/26/25 5:25 AM Result Value Ref Range Extra Tube Auto Resulted Comprehensive metabolic panel Collection Time: 02/26/25 5:26 AM Result Value Ref Range SODIUM 141 134 - 146 mmol/L POTASSIUM 3.7 3.5 - 5.0 mmol/L CHLORIDE 111 (H) 98 - 109 mmol/L CARBON DIOXIDE 23 22 - 32 mmol/L ANION GAP 7 5 - 15 mmol/L BLOOD UREA NITROGEN 13 5 - 27 mg/dL CREATININE 0.70 0.40 - 1.00 mg/dL GLUCOSE 95 65 - 99 mg/dL CALCIUM 9.5 8.5 - 10.5 mg/dL TOTAL PROTEIN 5.9 (L) 6.0 - 8.0 g/dL ALBUMIN 3.6 3.2 - 5.3 g/dL ALKALINE PHOSPHATASE 47 39 - 130 U/L AST 20 <=41 U/L ALT 19 <=31 U/L BILIRUBIN,TOTAL 1.1 0.3 - 1.2 mg/dL EGFR Non-Race Dependent 85 >=60 ml/min/1.73sq.m Magnesium Collection Time: 02/26/25 5:26 AM Result Value Ref Range MAGNESIUM 2.1 1.8 - 2.6 mg/dL CBC auto differential Collection Time: 02/26/25 5:26 AM Result Value Ref Range WBC 5.3 4 - 11 x10E9/L RBC Count 4.16 3.8 - 5.2 X10E12/L Hemoglobin 12.2 11.7 - 15.5 g/dL Hematocrit 35.5 35 - 47 % MCV 85 80 - 100 fL MCH 29.3 27 - 34 pg MCHC 34.4 32 - 36 g/dL RDW 13.2 11.5 - 15 % Platelet Count 138 (L) 150 - 450 X10E9/L MPV 8.5 7 - 12 fL Neutrophils % 76.6 % Lymphocytes % 12.1 % Monocytes % 7.3 % Eosinophils % 3.7 % Basophils % 0.3 % Neutrophils Absolute (A) 4.1 1.5 - 6.6 10*3/uL Lymphocytes Absolute 0.6 (L) 1.0 - 3.5 10*3/uL Monocytes Absolute 0.4 0.0 - 0.9 10*3/uL Eosinophils Absolute 0.2 0.0 - 0.4 10*3/uL Basophils Absolute 0.0 0.0 - 0.2 10*3/uL Differential Type AUTOMATED DIFFERENTIAL Radiology CT pelvis without contrast Result Date: 02/25/2025 Narrative: STUDY: PELVIS CT WITHOUT CONTRAST CLINICAL HISTORY: Pelvic pain COMPARISON: 10/23/2018 TECHNIQUE: CT pelvis was performed utilizing 5 mm axial reconstructions without contrast. Coronal and sagittal reformatted images were obtained and reviewed. Automated exposure control was utilized. FINDINGS: Streak artifact resulting from lumbar fusion hardware with multilevel degenerative disc disease. There is degenerative changes of the bilateral sacroiliac joints with degenerative changes of the bilateral hips. There is no definitive acute process, fracture or dislocation. 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 Acute- appearing mildly displaced fracture of the right pubic bone and non-displaced fracture of the right ischial tuberosity. . If the patient is unable to bear weight or if there is concern for nondisplaced hip fracture, consider correlation with MRI. IMPRESSION: 1. There is acute appearing mildly displaced fracture of the right pubic bone and nondisplaced fracture of the right ischial tuberosity. All CT scans at this facility use dose modulation, iterative reconstruction, and/or weight based dosing when appropriate to reduce radiation dose to as low as reasonably achievable. Finalized by Edin Bedolla MD on 02/25/2025 11:[address] lumbar spine without contrast Result Date: 02/25/2025 Narrative: Study: Ct Lumbar spine History: Recent fall. Pain after trauma Technique: Axial images from the lower thoracic spine through the lumbar spine were obtained followed by sagittal and coronalreconstructed images. Findings/impression: Prior L4 laminectomy. Transpedicular screws placed for fu marybeth of L4-L5. Intervertebral disc spacing material is also noted. Hardware appears well incorporated into the bone and free of any acute complication. Bony fusion is noted along the left facets. Underlying levoscoliosis is appreciated. No CT evidence of acute vertebral body fracture. No loss in height. Arthrosis is noted. No spondylolysis. The bone trabeculation is poor. This does hamper assessment of nondisplaced fractures. If pain or concern persists consider follow-up MR imaging. Vacuum disc phenomenon with disc space narrowing is appreciated at L2-3 and L1-2. SI joints appear symmetric. The abdominal aorta is tortuous. Atherosclerotic disease is noted. Psoas muscles appear symmetric All CT scans at this facility use dose modulation, iterative reconstruction, and/or weight based dosing when appropriate to reduce radiation dose to as low as reasonably achievable. Workstation:[id number] by Rosario Stauffer MD on 02/25/2025 11:[address] brain without contrast Result Date: 02/25/2025 Narrative: CT BRAIN WO CONT CLINICAL INFORMATION: fall, on plavix, no LOC COMPARISON: 05/16/2022. PROCEDURE: Routine CT Head obtained without contrast. All CT scans at this facility use dose modulation, iterative reconstruction, and/or weight based dosing when appropriate to reduce radiation dose toas low as reasonably achievable. FINDINGS: No acute intracranial hemorrhage. No mass effect or midline shift. No extra axial fluid collection. No hydrocephalus. Mathias-white differentiation is preserved. No depressed calvarial fracture. IMPRESSION: * No acute intracranial findings by CT. Finalized by Hua Bradley MD on 02/25/2025 10:55 AM X-ray elbow right 2 views Result Date: 02/25/2025 Narrative: XR ELBOW RT 2 VWS HISTORY: Fall, right elbow pain and swelling COMPARISON: 12/01/2023 FINDINGS: No acute fracture or malalignment. Joint spaces are well-preserved. No joint effusion. Focal soft tissue swelling overlying the dorsal proximal ulna. IMPRESSION: * No acute osseous abnormality.* Focal soft tissue swelling over the proximal dorsal ulna. Approved by Resident: Segundo Armstrong MD on 02/25/2025 10:27 AM I, Edin Bedolla MD have personally reviewed the image(s) and agree with and/or edited the report Finalized by Edin Bedolla MD on 02/25/2025 10:28 AM HOSPITAL PROBLEM LIST Principal Problem: Pubic bone fracture (CMS-HCC) Active Problems: Hypertension Paroxysmal atrial fibrillation (CMS-HCC) Presence of cardiac pacemaker- MDT Essential tremor Acquired hypothyroidism ASSESSMENT & PLAN Pubic bone fracture P.r.n. 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 Chart reviewed. Admission orders placed. Home medications reconciled. DVT/VTE prophylaxis: SCD and enoxaparin. GI prophylaxis: not indicated. PT/OT to evaluate and treat. DC planning: tbd. Medically Ready for Discharge: Anticipated in 2-4 Days [facility] 02/26/2025 11:29 AM [facility] 7AM-7PM & 7PM-7AM: EpicChat or page through On-Call Finder. [facility] 02/26/25 1405 PT/OT Will need SNF Pain control Ortho follow up DVT prophylaxis Not on AC for p afib. Reviewed cardiology notes. Low clot burden and AC was not recommended Attending Attestation: I, Dr. Harriett Alberts, personally performed the face to face diagnostic evaluation on this patient. All labs , xrays reviewed. I have reviewed the SARAH's History, Exam and MDM and agree with the assessment and plan as written. MD Gustavo Austin [facility] Plan of care note * Plan of Care - Brigida Medrano RN - 02/25/2025 10:14 PM EDT Problem: Pain Goal: Patient goal is pain score less than 4, able to rest, and participant in treatment plan as appropriate Description: INTERVENTIONS: 1. Encourage patient or legal admissions representative to report early pain and ask for pain medicine when needed 2. Assess pain using appropriate pain scale and include the scale used when documenting 3. Administer analgesics based on type and severity of pain and evaluate response within appropriate time frame 4. Implement non-pharmacological measures as appropriate and evaluate response 5. Consider cultural and social influences on pain and pain management 6. Notify LIP if interventions ineffective or patient reports new pain 7. Monitor vital signs including pulse ox, end-tidal CO2 based on pain intervention 8. Reassess pain per policy 9. Teach patient or legal admissions representative interventions for comforting Outcome: Progressing Note: Evaluation of progress towards goal: monitor and treat pain as ordered. Problem: Safety Goal: Patient will be injury free during hospitalization Description: INTERVENTIONS: 1. Assess patient's risk for falls and implement fall prevention plan of care per policy 2. Provide and maintain a safe environment 3. Proper use of double Identifiers 4. Medication administration using the 5 rights 5. Hand hygiene 6. Specimens are labeled at the bedside 7. Instruct patient/ patient admissions representative about use of safety devices 8. Include patient/ patient admissions representative in decisions related to safety Outcome: Progressing Note: Evaluation of progress towards goal: patient remains free from falls/injuries. [facility] [id number] Hospital Discharge instructions* Appointments * Mark Rollins - 02/25/2025 3:33 PM EDT Unable to schedule an office follow up with HALIMA HOOKS MD . Office was not answering. * Attachments The following attachments cannot be sent through Care Everywhere. * Pelvic fracture (Slovenian) [facility] [id number] Plan of care note * Plan of Care - Lovely Alves RN - 02/25/2025 2:52 PM EDT Problem: Pain Goal: Patient goal is pain score less than 4, able to rest, and participant in treatment plan as appropriate Description: INTERVENTIONS: 1. Encourage patient or legal admissions representative to report early pain and ask for pain medicine when needed 2. Assess pain using appropriate pain scale and include the scale used when documenting 3. Administer analgesics based on type and severity of pain and evaluate response within appropriate time frame 4. Implement non-pharmacological measures as appropriate and evaluate response 5. Consider cultural and social influences on pain and pain management 6. Notify LIP if interventions ineffective or patient reports new pain 7. Monitor vital signs including pulse ox, end-tidal CO2 based on pain intervention 8. Reassess pain per policy 9. Teach patient or legal admissions representative interventions for comforting Outcome: Progressing Note: Evaluation of progress towards goal: Pt encouraged to report early pain, non pharmacological measures implemented as needed. Pt able to report pain according to 0/10 pain scale. Medicating patient for pain per orders. Problem: Safety Goal: Patient will be injury free during hospitalization Description: INTERVENTIONS: 1. Assess patient's risk for falls and implement fall prevention plan of care per policy 2. Provide and maintain a safe environment 3. Proper use of double Identifiers 4. Medication administration using the 5 rights 5. Hand hygiene 6. Specimens are labeled at the bedside 7. Instruct patient/ patient admissions representative about use of safety devices 8. Include patient/ patient admissions representative in decisions related to safety Outcome: Progressing Note: Evaluation of progress towards goal: Pt's risk for falls assessed and fall prevention implemented as needed, safe environment provided and maintained, hand hygiene completed. Problem: Infection Goal: Absence of infection during hospitalization Description: INTERVENTIONS 1. Assess and monitor for signs and symptoms of infection. 2. Monitor lab/diagnostic results. 3. Monitor all insertion sites i.e., indwelling lines, tubes and drains. 4. Monitor endotracheal (as able) and nasal secretions for changes in amount and color. 5. Administer medications as ordered. 6. Instruct and encourage patient and family to use good hand hygiene technique. 7. Identify and instruct patient/patient admissions representative in use of appropriate isolation precautionsfor identified infection/symptoms. 8. Provide and discuss with patient/patient admissions representative on educational MDRO sheet. 9. Encourage and monitor nutritional status daily and consult broadcast maintenance engineer if indicated. 10. Implement neutropenic guidelines as needed. Outcome: Progressing Note: Evaluation of progress towards goal: Pt assessed and monitored for signs and symptoms of infection, lab and diagnostic results monitored as needed, administer medications as needed. Problem: Knowledge Deficit Goal: Patient/patient admissions representative demonstrates understanding of disease process, treatment plan,medications, and discharge instructions Description: INTERVENTIONS 1. Complete learning assessment and assess knowledge base 2. Provide teaching at level of understanding 3. Provide teaching via preferred learning method(s) Outcome: Progressing Note: Evaluation of progress towards goal: Pt learning and knowledge base assessed, teaching provided at an understandable level as needed, teaching provided via preferred learning method. [facility] SceneShot [id number] Progress note* Discharge Planning Note - ELIUD Gamez - 02/25/2025 2:29 PM EDT Images from the original note were not included. Initial Assessment Initial Assessment Flowsheet Row Most Recent Value Patient Information Initial Pre-Hospitalization Assessment Completed? Completed Primary Caregiver Self Accompanied by/Relationship friend Moriah Support System Children, Friends [daughter Kiya, friend Moriah] Discharge Planning Living Arrangements Alone, Private Residence Assistance Needed independent with adls/iadls including special needs bus driver Type of Residence Private residence Private Residence 1 story Can patient reside on one level? Yes Residence Accessibility Steps into home, Railing Number of Steps 4 Home Care Services No Community Referrals / Resources Provided Denies needs Does The Patient Have Existing Home DME? No Will the patient need DME at discharge? No, the patient has no home DME needs currently Stressors Type of stressor -- [does not endorse] Income Information Income Information Retired/Pension/Social Security IP Hunger/Food Insecurity Screening Within the past 12 months we worried whether our food would run out before we got money to buy more. Never True Within the past 12 months the food we bought just didn't last and we didn't have money to get more.Never True Hunger Screening Complete? Yes Pt. Eligible for Food / Voucher No If Eligible: Received Food Box Not Offered to Patient Warm Handoff Complete Caregiver/Family Member Caregiver/Family Member pt gives permission to complete assessment with juhi Major present Caregiver/Family Member Involved with Current Plan of Care Yes [friend Moriah] Caregiver/Family Member in Agreement with Current Plan of Care Yes Caregiver/Support System Limitations Patient/Caregiver Goals Patient/Caregiver Goals Home No Needs [upon therapy needs] Home No Needs Alone Community Provider Referral Community Provider Referral None Services Requested Has the case been escalated? No Patient expects to be discharged to: home Does the patient wish to have family/friend/caregiver involved in their discharge planning? Yes Does the patient plan to return home to a community setting? Yes Has the family/friend/caregiver been assessed to determine their readiness, skills, capacities, andresources to provide post hospital care? Yes, Caregiver Assessment Completed [friend Moriah who pt states is like her sister, pt daughter is an RN] Discharge Disposition Home with self care [pending therapy needs] Does the patient need discharge transportation arranged? No DC Planning Complete Discharge Milestones Yes 3-Midnight Is SNF the current discharge plan for this Traditional/Orignal Medicare patient? No Services Requested: Services Requested Has the case been escalated?: No Patient expects to be discharged to:: home Does the patient wish to have family/friend/caregiver involved in their discharge planning?: Yes Does the patient plan to return home to a community setting?: Yes Has the family/friend/caregiver been assessed to determine their readiness, skills, capacities, andresources to provide post hospital care?: Yes, Caregiver Assessment Completed (friend Moriah who pt states is like her sister; pt daughter is an RN) Discharge Disposition: Home with self care (pending therapy needs) Does the patient need discharge transportation arranged?: No DC Planning Complete Discharge Milestones: Yes Patient Goals: Patient/Caregiver Goals Patient/Caregiver Goals: Home No Needs (upon therapy needs) Home No Needs: Alone Goals home with friend support (pt-stated) Evaluation of progress towards goal: under assessment Additional Comments (If Applicable) Chart reviewed. Introduced self & role of SW, pleasant pt agreeable to conversation with her good sister like friend Moriah present; assessment/goals as above. Pt does not endorse alcohol/substance use. Pt does not endorse food insecurity or financial stressors. Pt is able to afford home medications. Pt has functioning water, heat, cooling & electric inthe home. Negative [place] screen. Pt provides own transportation. Pt is independent in/out of the home, performs own household tasks,meal preparation & grocery shops. Pt uses no assist devices or home services. Pt relayed her daughter Kiya who is an RN & her best friend Moriah provide natural supports. Patient's preferred pharmacy is [facility]. PCP verified as Dr. Юлия Hooks. Educated pt on available community resources including meals on wheels and Home Health Care; pt does not endorse any current DC needs. Pt said she has a walker that was her 's at home. Pt goal is home going. Informed pt that PT/OT will complete evaluation which will help with safe DCplan, pt & friend state understanding. Opportunity provided to ask questions, pt does not endorse any at this time. Plan to prevent readmission is for pt to follow up with PCP, tasked to arrange for post hospitalization PCP appointment in 7-10 days, follow DC instructions including medication compliance and to reach out to health care team as needed. Care Navigation will continue to follow patient progress to determine appropriate safe care transition needs. T [facility] Scene[employer]ot [id number] Progress note* PT/OT/SYSTEM ARCHITECT - Tiffanie Paulson, PT - 02/25/2025 1:27 PM EDT Physical Therapy PT Type of Visit: (P) Medical deferral (ER nurse states transporting to acute floor at any moment.) Reason For Medical Deferral: (P) Provider input needed (Await weightbearing status do to mildly displaced fracture of R. pubic bone as well as non-displaced fracture of R. ischial tuberosity.) PT will continue to follow this patient. Thank you for this referral. [facility]09-19-2025 Progress note* PT/OT/SYSTEM ARCHITECT - Elva Bucio, OTR/L - 02/25/2025 1:26 PM EDT Occupational Therapy OT Type of Visit: Medical deferral (patient coming to acute floor soon) patient with mildly displaced fracture of the right pubic bone and nondisplaced fracture of the right ischial tuberosity, attempted to see patient in the ED however pt is schedule to come to acute floor for soon. WB status also unclear at this time. OT to continue to follow. [facility]09-19-2025 Emergency department Note* Concha Phelan CNA - 02/25/2025 12:51 PM EDT [id number], call to go up [facility]09-19-2025 Emergency department Note* Concha Phelan CNA - 02/25/2025 12:51 PM EDT [id number], call to go up * Sony Zeng DO - 02/25/2025 10:12 AM EDT Images from the original note were not included. [facility] - EMERGENCY Pt Name: Ayana Alves Birthdate: 1940 Chief Complaint: Chief Complaint Patient presents with Fall History of Present Illness: This is a well-appearing 85-year-old female patient, she presents to the emergency department aftera mechanical fall. She states that she was walking her dog, her dog saw a cat and began to run, pulling her down. She states that she fell onto her right side, she states that she did not lose consciousness, she reports that she was able to get up and get back into her house where she called EMS. She does take Plavix. Past Medical History: Past Medical History: Diagnosis Date Abdominal cramping [...] in the left eye Past Surgical History: Past Surgical History: Procedure Laterality Date BACK SURGERY 2011 CAGE BLEPHAROPLASTY OPHTH Bilateral 10/31/2017 Performed by Daksha Bull MD at [facility] BREAST BIOPSY Left 1960s BENIGN, cyst/tumor, in her 20's CARDIAC PACEMAKER PLACEMENT Left CATARACT EXTRACTION 2007 COLONOSCOPY 06/28/2016 COLONOSCOPY N/A 01/19/2020 Performed by Fermin Gamez MD at [facility] Coronary angiogram and right heart and left ventricular gram/pressure N/A 09/09/2018 Performed by Solomon Piper MD at [facility] CARDIAC CATH LABS EGD with bx N/A 02/28/2020 Performed by Fermin Gamez MD at [facility] EP - Device DC PPM Left 11/04/2018 Performed by Lori Yo MD at [facility] (EP) FOOT SURGERY Bilateral little toes pins in toes, bones shaved down on outsides of both feet MINIMALLY INVASIVE MITRAL VALVE REPAIR 28MM FUTURE RING , MINIMALLY INVASIVE TRICUSPID VALVE [id number] CONTOUR 3D RING/ BHARAT N/A 10/30/2018 Performed by Edin Lima MD at [facility] SPINE SURGERY THYROIDECTOMY, PARTIAL TONSILLECTOMY child WRIST SURGERY Left Family History: Family History Problem Relation Age of Onset Ulcerative colitis Mother Arthritis Mother Alcohol abuse Mother Hypertension Mother Stroke Mother Mental illness Mother DEPRESSION, ANXIETY Dementia Mother Migraines Mother Colon cancer Father Arthritis Father Asthma Father Heart attack Father Hypertension Father Hyperlipidemia Father Clotting disorder Father Breast cancer Neg Hx Anesthesia problems Neg Hx Social History: Social History Socioeconomic History Marital status: Tobacco Use Smoking status: Former Current packs/day: 0.00 Average packs/day: 1 pack/day for 7.0 years (7.0 ttl pk-yrs) Types: Cigarettes Start date: 1955 Quit date: 1962 Years since quittin.7 Smokeless tobacco: Never Vaping Use Vaping status: Never Used Substance and Sexual Activity Alcohol use: Yes Comment: Occasional Drug use: No Sexual activity: Defer Other Topics Concern Caffeine Use Yes Social Drivers of Health Food Insecurity: No Food Insecurity (02/25/2025) Hunger Screening Food Insecurity - Worry: Never True Food Insecurity - Inability: Never True Review of Systems: Review of Systems Physical Exam: ED Triage Vitals [02/25/25 0935] Temp Heart Rate Resp BP SpO2 36.6 C (97.8 F) 68 18 (!) 163/98 93 % Temp Source Heart Rate Source Patient Position BP Location FiO2 (%) Oral Pulse Ox Sitting Left arm -- Vitals: 02/25/25 0935 BP: (!) 163/98 Temp: 36.6 C (97.8 F) TempSrc: Oral Pulse: 68 Resp: 18 SpO2: 93% Height: 152.4 cm (5') Weight: 55.3 kg (122 lb) Physical Exam Constitutional: Appearance: Normal appearance. HENT: Head: Normocephalic and atraumatic. Neck: Comments: No midline cervical or thoracic tenderness. Lumbar back pain not reproducible with palpation Cardiovascular: Rate and Rhythm: Normal rate and regular rhythm. Pulmonary: Effort: Pulmonary effort is normal. Breath sounds: Normal breath sounds. Abdominal: General: Abdomen is flat. There is no distension. Tenderness: There is no abdominal tenderness. There is no guarding. Musculoskeletal: Comments: Mild right-sided pelvic tenderness. Hematoma of the extensor surface of the right elbow. Range of motion intact in bilateral upper and lower extremities. Pelvis stable. Peripheral pulses intact and symmetrical Skin: General: Skin is warm. Capillary Refill: Capillary refill takes less than 2 seconds. Neurological: General: No focal deficit present. Mental Status: She is alert and oriented to person, place, and time. Procedure: Procedures Re-evaluation: Re-Evaluation Medical Decision Making This is an 85-year-old female patient, she presents to the emergency department after a mechanical fall. She reports right hip pain, right elbow pain. She denies any head injury loss of consciousness. She is hypertensive vital signs otherwise within normal limits, heart is regular rate and rhythm, lungs are clear to auscultation. Range of motion intact in bilateral upper and lower extremities. Pelvis is stable. CT brain, chest x-ray, CT pelvis and lumbar spine obtained in the emergency department. Imaging demonstrated pubic and ischial tuberosity fractures. Patient was discussed with orthopedics who recommended weight-bearing as tolerated. Patient was unable to ambulate successfully in the emergency department, required significant assistance to use walker in the ED. Patient will be admitted for PT/OT evaluation. Sony Zeng DO Attending Emergency Physician Amount and/or Complexity of Data Reviewed Labs: ordered. Radiology: ordered. Risk OTC drugs. ED Course: ED Course as of 02/25/25 1213 FriFeb 25, 2025 1141 Discussed with rhina Webster for outpatient follow up if ambulatory vs admit for PT/OT evaluation [MB] ED Course User Index [MB] Sony Zeng DO Clinical Impressions as of 02/25/25 1213 Pubic bone fracture (CMS-HCC) . ED Disposition None . Please note that portions of this note were completed with a voice recognition program. Efforts were made to edit the dictations but occasionally words are mis-transcribed. Sony Zeng DO 02/25/25 1014 Sony Zeng DO 02/25/25 1337 Sony Zeng DO 02/25/25 1404 documented in [facility] Physician Emergency department Note* Sony Zeng DO - 02/25/2025 10:12 AM EDT Images from the original note were not included. [facility] - EMERGENCY Pt Name: Ayana Alves Birthdate: 1940 Chief Complaint: Chief Complaint Patient presents with Fall History of Present Illness: This is a well-appearing 85-year-old female patient, she presents to the emergency department aftera mechanical fall. She states that she was walking her dog, her dog saw a cat and began to run, pulling her down. She states that she fell onto her right side, she states that she did not lose consciousness, she reports that she was able to get up and get back into her house where she called EMS. She does take Plavix. Past Medical History: Past Medical History: Diagnosis Date Abdominal cramping [...] in the left eye Past Surgical History: Past Surgical History: Procedure Laterality Date BACK SURGERY 2011 CAGE BLEPHAROPLASTY OPHTH Bilateral 10/31/2017 Performed by Daksha Bull MD at [facility] BREAST BIOPSY Left BENIGN, cyst/tumor, in her 20's CARDIAC PACEMAKER PLACEMENT Left CATARACT EXTRACTION 2007 COLONOSCOPY 06/28/2016 COLONOSCOPY N/A 01/19/2020 Performed by Fermin Gamez MD at [facility] Coronary angiogram and right heart and left ventricular gram/pressure N/A 09/09/2018 Performed by Solomon Piper MD at [facility] CARDIAC CATH LABS EGD with bx N/A 02/28/2020 Performed by Fermin Gamez MD at [facility] EP - Device DC PPM Left 11/04/2018 Performed by Lori Yo MD at [facility] (EP) FOOT SURGERY Bilateral little toes pins in toes, bones shaved down on outsides of both feet MINIMALLY INVASIVE MITRAL VALVE REPAIR 28MM FUTURE RING , MINIMALLY INVASIVE TRICUSPID VALVE [id number] CONTOUR 3D RING/ BHARAT N/A 10/30/2018 Performed by Edin Lima MD at [facility] SPINE SURGERY THYROIDECTOMY, PARTIAL TONSILLECTOMY child WRIST SURGERY Left Family History: Family History Problem Relation Age of Onset Ulcerative colitis Mother Arthritis Mother Alcohol abuse Mother Hypertension Mother Stroke Mother Mental illness Mother DEPRESSION, ANXIETY Dementia Mother Migraines Mother Colon cancer Father Arthritis Father Asthma Father Heart attack Father Hypertension Father Hyperlipidemia Father Clotting disorder Father Breast cancer Neg Hx Anesthesia problems Neg Hx Social History: Social History Socioeconomic History Marital status: Tobacco Use Smoking status: Former Current packs/day: 0.00 Average packs/day: 1 pack/day for 7.0 years (7.0 ttl pk-yrs) Types: Cigarettes Start date: 1955 Quit date: 1962 Years since quittin.7 Smokeless tobacco: Never Vaping Use Vaping status: Never Used Substance and Sexual Activity Alcohol use: Yes Comment: Occasional Drug use: No Sexual activity: Defer Other Topics Concern Caffeine Use Yes Social Drivers of Health Food Insecurity: No Food Insecurity (02/25/2025) Hunger Screening Food Insecurity - Worry: Never True Food Insecurity - Inability: Never True Review of Systems: Review of Systems Physical Exam: ED Triage Vitals [02/25/25 0935] Temp Heart Rate Resp BP SpO2 36.6 C (97.8 F) 68 18 (!) 163/98 93 % Temp Source Heart Rate Source Patient Position BP Location FiO2 (%) Oral Pulse Ox Sitting Left arm -- Vitals: 02/25/25 0935 BP: (!) 163/98 Temp: 36.6 C (97.8 F) TempSrc: Oral Pulse: 68 Resp: 18 SpO2: 93% Height: 152.4 cm (5') Weight: 55.3 kg (122 lb) Physical Exam Constitutional: Appearance: Normal appearance. HENT: Head: Normocephalic and atraumatic. Neck: Comments: No midline cervical or thoracic tenderness. Lumbar back pain not reproducible with palpation Cardiovascular: Rate and Rhythm: Normal rate and regular rhythm. Pulmonary: Effort: Pulmonary effort is normal. Breath sounds: Normal breath sounds. Abdominal: General: Abdomen is flat. There is no distension. Tenderness: There is no abdominal tenderness. There is no guarding. Musculoskeletal: Comments: Mild right-sided pelvic tenderness. Hematoma of the extensor surface of the right elbow. Range of motion intact in bilateral upper and lower extremities. Pelvis stable. Peripheral pulses intact and symmetrical Skin: General: Skin is warm. Capillary Refill: Capillary refill takes less than 2 seconds. Neurological: General: No focal deficit present. Mental Status: She is alert and oriented to person, place, and time. Procedure: Procedures Re-evaluation: Re-Evaluation Medical Decision Making This is an 85-year-old female patient, she presents to the emergency department after a mechanical fall. She reports right hip pain, right elbow pain. She denies any head injury loss of consciousness. She is hypertensive vital signs otherwise within normal limits, heart is regular rate and rhythm, lungs are clear to auscultation. Range of motion intact in bilateral upper and lower extremities. Pelvis is stable. CT brain, chest x-ray, CT pelvis and lumbar spine obtained in the emergency department. Imaging demonstrated pubic and ischial tuberosity fractures. Patient was discussed with orthopedics who recommended weight-bearing as tolerated. Patient was unable to ambulate successfully in the emergency department, required significant assistance to use walker in the ED. Patient will be admitted for PT/OT evaluation. Sony Zeng DO Attending Emergency Physician Amount and/or Complexity of Data Reviewed Labs: ordered. Radiology: ordered. Risk OTC drugs. ED Course: ED Course as of 02/25/25 1213 FriFeb 25, 2025 114 Discussed with rhina Webster for outpatient follow up if ambulatory vs admit for PT/OT evaluation [MB] ED Course User Index [MB] Sony Zeng DO Clinical Impressions as of 02/25/25 1213 Pubic bone fracture ([facility]) . ED Disposition None . Please note that portions of this note were completed with a voice recognition program. Efforts were made to edit the dictations but occasionally words are mis-transcribed. Sony Zeng DO 02/25/25 1014 Sony Zeng DO 02/25/25 1337 Sony Zeng DO 02/25/25 1404 [facility]08-27-2025 History of Present illness Narrative* Werner Nolasco, KATTY - 02/02/2025 1:00 PM EDT Images from [...] therapy completed in June of 2023. Plan: [place] agreement against any further oral terbinafine therapy [...] understanding. Werner Nolasco DPM documented in this [facility]08-27-2025 Instructions* Patient Instructions* Werner Nolasco DPM - 02/02/2025 1:00 PM EDT Topical care measures as noted documented in this [facility]06-20-2025 History of Present illness Narrative* Rosa Paula RN - 11/26/2024 2:30 PM EDT Patient is here for Reclast. She has had it before, verbalized understanding of side effects. Labs WNL. She denies dental procedures. IV started. Reclast infused over 15 minutes. Patient tolerated itwell. IV removed. Patient discharged in stable condition. documented in this [facility] History of Present illness Narrative* Werner Nolasco DPM - 10/27/2024 1:30 PM EDT Images from the original note [...] surgery for valve repair CATARACT EXTRACTION COLONOSCOPY [facility], 2012, CT ANGIOGRAM ABDOMEN PELVIS 10/23/2018 [...] dystrophy, thickening, discoloration and crumbly texture of thedistal nail plate with periungual mycotic debris; without [...] therapy completed in June of 2023. Plan: [place] agreement against any further oral terbinafine therapy at this time. [place] agreement for topical care measures: Formula 7 [...] understanding. Werner Nolasco DPM documented in this encounterOzarks Community [id number] Instructions* Patient Instructions* Werner Nolasco DPM - 10/27/2024 1:30 PM EDT Topical care measures as noted documented in this encounterOzarks Community [id number] History of Present illness Narrative* Deepika Garcia MD - 09/23/2024 10:30 AM EDT Reason for Visit: Ayana Alves is a 84 y.o. female who is being seen for follow up of hyperparathyroidism. History of Present Illness: She follows with Dr. Ambrocio (cardiology). She had open heart surgery for valvular disease, s/p repair in 2019 Osteopenia: She has taken forteo and Boniva in the past. She received 1 dose of IV reclast in September2021. Received 2nd dose of IV Reclast on [...] 10/31/2017 Performed by Daksha Bull MD at [facility] BREAST BIOPSY Left BENIGN, cyst/tumor, in her 20's CARDIAC PACEMAKER PLACEMENT Left CATARACT EXTRACTION 2007 COLONOSCOPY 06/28/2016 COLONOSCOPY N/A 01/19/2020 Performed by Fermin Gamez MD at [facility]COPY Coronary angiogram and right heart and left ventricular gram/pressure N/A 09/09/2018 Performed by Solomon Piper MD at [facility] CARDIAC CATH LABS EGD with bx N/A 02/28/2020 Performed by Fermin Gamez MD at [facility] EP - Device DC PPM Left 11/04/2018 Performed by Lori Yo MD at [facility] (EP) FOOT SURGERY Bilateral little toes pins in toes, bones shaved down on outsides of both feet MINIMALLY INVASIVE MITRAL VALVE REPAIR 28MM FUTURE RING , MINIMALLY INVASIVE TRICUSPID VALVE [id number] CONTOUR 3D RING/ BHARAT N/A 10/30/2018 Performed by Edin Lima MD at [facility] SPINE SURGERY THYROIDECTOMY, PARTIAL TONSILLECTOMY child WRIST [...] EVERY DAY ON AN EMPTY STOMACH, Disp: 90tablet, Rfl: 3 spironolactone (ALDACTONE) 25 mg tablet, [...] no acute distress, does not appear cushingoid, doesnot appear Acromegaloid. EYES: No exopthalmos present, extraocular [...] to clinic: 1 yr documented in this encounterEast [facility]02-19-[facility]25 History of Present illness Narrative* Halima Hooks MD - 07/28/2024 9:00 AM EST Images from the original note were not included. [address] [place] [id number] Patient: Ayana Alves Date of : [...] for anxiety and insomnia. Subsequent to cardiac surgicalprocedures. Her primary concern today is ongoing hip [...] 10/31/2017 Performed by Daksha Bull MD at [facility] BREAST BIOPSY Left BENIGN, cyst/tumor, in her 20's CARDIAC PACEMAKER PLACEMENT Left CATARACT EXTRACTION 2007 COLONOSCOPY 06/28/2016 COLONOSCOPY N/A 01/19/2020 Performed by Fermin Gamez MD at [facility] Coronary angiogram and right heart and left ventricular gram/pressure N/A 09/09/2018 Performed by Solomon Piper MD at [facility] CARDIAC CATH LABS EGD with bx N/A 02/28/2020 Performed by Fermin Gamez MD at [facility] EP - Device DC PPM Left 11/04/2018 Performed by Lori Yo MD at [facility] (EP) FOOT SURGERY Bilateral little toes pins in toes, bones shaved down on outsides of both feet MINIMALLY INVASIVE MITRAL VALVE REPAIR 28MM FUTURE RING , MINIMALLY INVASIVE TRICUSPID VALVE [id number] CONTOUR 3D RING/ BHARAT N/A 10/30/2018 Performed by Edin Lima MD at [facility] SPINE SURGERY THYROIDECTOMY, PARTIAL TONSILLECTOMY child [...] TABLET BY MOUTH EVERY DAY IN THE MORNINGON EMPTY STOMACH FOR 90 DAYS 90 tablet [...] is no right CVA tenderness, left CVA tendernessor guarding. Musculoskeletal: Cervical back: Normal range of motion and neck supple. Neurological: Mental Status: She is alert and oriented to person, place, and time. Mental status is at baseline. Labs, imaging, and records: I have personally obtained and reviewed the relevant labs/imaging. ASSESSMENT/PLAN: Ratna was seen today for establish care and hip pain. Diagnoses and all orders for this visit: Pulmonary hypertension, unspecified ([facility]) Paroxysmal atrial fibrillation ([facility]) Hyperparathyroidism ([facility]) SSS (sick sinus syndrome) ([facility]) Pacemaker 84-year-old female here to establish care today No plans for acute medication changes History and records updated HALIMA HOOKS MD Family Medicine Physician [facility] / [facility] 07/28/24 This note was completed with voice recognition software. The document was reviewed for errors however some may still be present. Please do not hesitate to contact/[facility] the author to verify any questions/concerns. documented in this encounterWVUMedicine Harrison Community HospitalBuzz Lanes [facility] [id number] Miscellaneous Notes* Telephone Encounter - Maria A Nguyen - 04/20/2024 8:[address] Doe Reschedule: Patient's appointment with Dr Doe on June 08, 2024 needs to be rescheduled at this time due to provider out of clinic. Contacted patient and offered to reschedule for open slots in July, per admitting supervisor's instruction. Patient is rescheduled to see Dr Doe at our [place] location on 07/19/23 at 11:30a documented in this encounterEast [facility]11-12-2024 Telephone encounter Note* Telephone Encounter - Maria A Nguyen - 04/20/2024 8:[address] Doe Reschedule: Patient's appointment with Dr Doe on June 08, 2024 needs to be rescheduled at this time due to provider out of clinic. Contacted patient and offered to reschedule for open slots in July, per admitting supervisor's instruction. Patient is rescheduled to see Dr Doe at our [place] location on 07/19/23 at 11:30a [facility]09-17-2024 Evaluation note* Diagnosis Onset Date Resolution Status Admit Date Acute left ankle pain acuteSeptember 2023 10:25amViral URIacuteNovember 2023 2:29pm [facility] Work Phone: [phone] 621-121502-01-2024 History of Present illness Narrative* Werner Nolasco, [...] valve repair CATARACT EXTRACTION COLONOSCOPY [facility], 2012, CT ANGIOGRAM ABDOMEN PELVIS 10/23/2018 CT [...] understanding. Werner Nolasco DPM documented in this [facility]02-01-2024 Instructions* Patient Instructions* Werner Nolasco DPM - 07/10/2023 1:15 PM EST Topical care measures as noted documented in this [facility]01-22-2024 Evaluation note* Encounter Date Diagnosis Assessment Notes Treatment Notes Treatment Clinical Notes Jun, Other chest pain (ICD-10 - R07.8 9) Pt agrees to stress test and cxr. Recommened she move up her appt w cardiology. If pain increases or becomes more severe go to ER or call 911 [facility] Other 01-15-2024 Evaluation note* Encounter Date Diagnosis Assessment Notes Treatment Notes Treatment Clinical Notes Jun, Screening mammogram, encounter f or (ICD-10 - Z12.31) Jun,homboid muscle pain (ICD-10 - M79.18)Pt given HO on home stretches for this area. Discussed massotherapy and PT as well. [facility] Other 10-03-2023 Evaluation note* Encounter Date Diagnosis Assessment Notes Treatment Notes Treatment Clinical Notes Mar, Hypercalcemia (ICD-10 - E83.52) [facility] Other 09-18-2023 Evaluation note* Encounter Date Diagnosis Assessment Notes Treatment Notes Treatment Clinical Notes Feb, Chronic fatigue (ICD-10 - R53.82 ) Discussed differential. Discussed stress and 's health issues. Assess for anemia and metabolic abnormalities. Feb,cquired hypothyroidism (ICD-10 - E03.9)Overdue for labs - chronic problem Feb,ruising (ICD-10 - T14.8XXA)Discussed differential. Will obtain recent labs from [facility]. [facility] Other 07-14-2023 Evaluation note* Encounter Date Diagnosis Assessment Notes Treatment Notes Treatment Clinical Notes Dec, Vitamin D deficiency (ICD-10 - E 55.9) [facility] Other 04-03-2023 Evaluation note* Encounter Date Diagnosis [...] a blood thinner. Topical anti-inflammatories if needed. Follow- up as needed The patient has been involved in our cooperative treatment plan and agrees to move forward with treatment at this time. Patient given order for physical therapy Sep,Strain of flexor muscle of left hip, subsequent encounter (ICD-10 - S76.012D) [facility] Other 03-15-2023 Evaluation note* Encounter Date Diagnosis Assessment Notes Treatment Notes Treatment Clinical Notes Aug, Acute pain of left hip (ICD-10 - M25.552) Ayana presents with left thigh pain. At this juncture we have discussed the findings and diagnosisas well as personally reviewed appropriate imaging and performed interpretation of related testing and examination with the patient in office today. She does have a history of prior lumbar fusion andthis could be some of her radicular pain but it is isolated to the thigh without radiation. Her hipoverall appears benign and it does not seem [...] and thigh area. Radiographs reviewed and discussed. Thereis no abnormality or fracture noted. We will monitor this pain for now and patient is to continue gentle motion exercises and anti- inflammatory medications. Patient voices understanding and is agreeable to treatment plan. Aug,OtherSee orders for this visit as documented in the electronic medical record. [facility] Other 02-20-2023 Evaluation note* Encounter Date Diagnosis Assessment Notes Treatment Notes Treatment Clinical Notes Jul, Chronic fatigue (ICD-10 - R53.82 ) Jul,Essential (primary) hypertension (ICD-10 - I10) [facility] Other 11-07-2022 History of Present illness Narrative* Mabel Guerrero OT - 04/15/2022 4:27 PM EST Occupational Therapy Facility/Department: [facility]- [facility] Occupational Therapy Initial [...] Ambulation Assistance: Independent Transfer Assistance: Independent Active Gallery Manager: Yes Mode of Transportation: SUV, Truck Occupation: [...] Hand Dominance Hand Dominance: Right AM-PAC Score [facility] Inpatient Daily Activity Raw Score: 24 (04/15/221631) AM-[facility] Inpatient ADL T-Scale Score : 57.54 (04/15/221631) ADL Inpatient CMS 0-100% Score: 0 (04/15/22 163) ADL Inpatient CMS G-Code Modifier : CH (04/15/221631) Therapy Time Individual Concurrent Group Co-treatment Time In 1456 Time Out 1515 Minutes 19 Timed Code Treatment Minutes: 16 Minutes Mabel Guerrero OTR/L * Rekha Carrillo - 04/15/2022 1:20 PM EST Speech Language Pathology Facility/Department: [facility] Initial Speech/Language/Cognitive Assessment [...] [facility] from standing height while walking her dog. No LOC. Pt found to have small L parietal SDH on CT while at [place]. CT face and c-spine were negative. Pt [...] recommended. Verbal education provided. Recommendations: Recommendations Requires SYSTEM ARCHITECT Intervention: No Patient Education: Yes Patient Education Response: Verbalizes understanding Plan: Individuals consulted Consulted and agree with results and recommendations: Patient Goals: Patient/family involved in developing goals and treatment plan: Yes Subjective: Social/Functional History Lives With: Spouse Type of Home: House Active Gallery Manager: Yes Mode of Transportation: Car Vision Vision: [...] 11:55 Minutes 13 Completed by: Rekha Carrillo House Mover Clinician Cosigned By: Nargis Fernandez M.S.CCC/SYSTEM ARCHITECT * Mehreen Bradshaw, PT - 04/15/2022 11:55 AM EST Physical Therapy Facility/Department: [facility] Physical Therapy Initial Assessment Name: Ayana Alves : 1940 Date of Service: 04/15/2022 82 y/o trauma transfer from [place], mechanical fall SH, on Plavix, outside hospital [...] ambulate 200' no device, steadily. 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 [...] Ambulation Assistance: Independent Transfer Assistance: Independent Active Gallery Manager: Yes Occupation: Retired Type of Occupation: Worked for [employer] in several different jobs including [...] Inpatient Mobility Raw Score : 23 (04/15/22 114) AM-PAC Inpatient T-Scale Score : 56.93 (04/15/22 114) Mobility Inpatient CMS 0-100% Score: 11.2 (04/15/22 [...] left hand pain. She reports xrays at [facility] showed no broken bones. Objective: Patient Vitals [...] completed, no acute fracture Pain mgmt PRN ЮЛИЯ Boone - 04/14/2022 7:54 PM EST SPIRITUAL CARE DEPARTMENT - [facility] Emergency/Trauma Note PATIENT NAME: Ayana Alves Shift date: 04/14/22 Shift day: Friday Shift # 2 Room # Name: Ayana Alves Age: 82 y.o. Gender: female Baptism: [facility]: [facility] in [place] Trauma/Incident type: Adult Trauma Priority Admit Date & Time: 04/14/2022 6:56 PM TRAUMA NAME: xxPhani ADVANCE DIRECTIVES IN CHART? No NAME OF DECISION MAKER: Bryan Alves, spouse or Kiya, daughter PATIENT/EVENT DESCRIPTION: Ayana Alves is a 82 y.o. female who arrived via [facility] as an Adult Trauma Priority; patientsustained injuries from a fall. Pt to be admitted to . SPIRITUAL JIOLBGWWPL-YAUBPSRHSIVJ-UNYEETU: Perishable Freight Inspector provided a ministry of presence and made space for sharing. Perishable Freight Inspector learned that patient receives support and comfort from her family and her yossi. Patient shared she belongs to [facility] in [place] and has a large bible study group praying forher. Patient shared that her , Bryan, has early Alzheimer's and is home resting. Patient appeared to be calm and seemed to be coping well. Perishable Freight Inspector connected patient's daughter, Kiya, with patient in ED16 (patient was originally in Trauma B), and extended hospitality. Patient and patient's daughter expressed gratitude for mixed crop and livestock farmer presence. PATIENT BELONGINGS: With patient ANY BELONGINGS OF SIGNIFICANT VALUE NOTED: Not noted or handled by mixed crop and livestock farmer REGISTRATION STAFF NOTIFIED? Yes WHAT IS YOUR SPIRITUAL CARE PLAN FOR THIS PATIENT?: Perishable Freight Inspector support will continue to be available as needed. 04/14/221952 Encounter Summary Service Provided For: Patient;Family Referral/Consult From: Multi-disciplinary team Support System Children;Spouse;Sabianism/yossi community Last Encounter 04/14/22 Complexity of Encounter Low Begin Time 1857 End Time 1957 Total Time Calculated 60 min Crisis Type Trauma Assessment/Intervention/Outcome Assessment Calm;Coping Intervention Active listening;Sustaining Presence/Ministry of presence Outcome Comfort;Expressed Gratitude Plan and Referrals Plan/Referrals Continue Support (comment) . Spiritual Care Department [facility] [phone] [facility] [employer] Work Phone: 1(441) 738-312211-07-2022 Hospital Discharge instructions* Discharge Instructions* Tiffanie Peck [...] the [facility] at [phone]. This center offers additional therapy, support groups, education and other resources at no cost. The center is located at [address] [place] [address]. You can also visit [email or web address] for more information. General questions or concerns may be called to the trauma nurse line at [phone] and please leave a message. Trauma is a life-threatening condition. Your doctor will want to closely monitor you. Be sure to goto all of your appointments. * Discharge Instr - Activity* Rosario Thomas RN - 04/15/2022 3:23 PM EST As tolerated. * Attachments The following attachments cannot be sent through Care Everywhere. * Acute Concussion (Slovenian) * Head Injury: Closed: General Info (Slovenian) documented [facility] encounterB[facility] Phone: [phone]) 343-771008-09-2022 NoteThis is a Telehealth Appointment *This visit [...] a normal screening. Patient was referred to [facility] by PCP on 05/03/2020 due to [...] melena. 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 Review of Systems Constitutional: [...] PA-C Electronically Signed by (more content not included)...[facility] CenterComment on above: Order Comment: [id number] Miscellaneous Notes* Telephone Encounter - Haven Gr RN - 11/26/2021 2:11 PM EDT -Pt Verified by Name and Date of -pt calling to ask if there is an age limit for colonoscopies. Pt PCP not with [facility]. -advised discuss with PCP and seek referral for ANNE eval. [facility] Evaluation note* Encounter Date Diagnosis Assessment Notes Treatment Notes Treatment Clinical Notes Sep, Thrombophlebitis of superficial veins of left lower extremity (ICD- 10 - I80.02) Ayana presents with superficial thrombophlebitis. At this juncture we have discussed the findings and diagnosis as well as personally reviewed appropriate imaging and performed interpretation of related testing and examination with the patient in office today. [facility] medical [facility] and history have been reviewed. At this time I would recommend aspirin 81 mg twice daily along with warm compresses to the area. We will plan for follow-up 2 to 3 weeks if not improved. The patient has been involved in our cooperative treatment plan and agrees to move forward with treatment at this time. Instructed patient to use heat. Sep,therSee orders for this visit as documented in the electronic medical record. [place] [facility] Other Evaluation note* Diagnosis Subdural hematoma- Primary Subdural hemorrhage Subdural hematoma Subdural hemorrhage documented in this encounter [facility] Work Phone: evaluation noteNo InformationNort [facility] Other Evaluation noteNo assessment information available [facility] Work Phone: Evaluation note* Diagnosis Dermatophytosis of nail- Primary Dystrophic nail Other specified disease of nail Pain around toenail documented in this encounter [facility] Healthcare[facility]* Diagnosis Onset Date Resolution Status Acute left ankle pain acute [facility] Work Phone: Evaluation note* Diagnosis 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 [facility] Diagnosis Pulmonary hypertension, unspecified ([place])- Primary Paroxysmal atrial fibrillation ([place]) Atrial fibrillation Hyperparathyroidism ([place]) Hyperparathyroidism, unspecified SSS (sick sinus syndrome) ([place]) Sinoatrial node dysfunction Pacemaker Cardiac pacemaker in situ documented [facility] encounter [facility]* Diagnosis Anxiety- Primary Anxiety state, unspecified [facility]* Diagnosis Postprocedural hypothyroidism- Primary Postsurgical hypothyroidism Vitamin D deficiency Senile osteoporosis [facility]* Diagnosis Osteopenia, unspecified location- Primary [facility]* Diagnosis Anxiety Anxiety state, unspecified [facility]* Diagnosis Dermatophytosis of nail- Primary Dystrophic nail Other specified disease of nail Pain of right great toe documented in this encounter [facility] HealthcareEvaluation [facility]* Diagnosis Obstructive airway disease ([facility])- Primary Chronic airway obstruction, not elsewhere classified [facility]* Diagnosis Anxiety Anxiety state, unspecified [facility]* Diagnosis Osteopenia, unspecified location- Primary [facility]* Diagnosis Obstructive airway disease ([facility]) Chronic airway obstruction, not elsewhere classified [facility]* Diagnosis Onset Date Resolution Status Admit Date Left hip pain acuteAugust 2024 9:45amPrimary osteoarthritis of left hipacuteAugust 2024 9:45amStrain of flexor muscle of left hipacuteAugust 2024 9:45am [facility] Work Phone: Evaluation note* Diagnosis Dermatophytosis of nail- Primary Dystrophic nail Other specified disease of nail Pain of right great toe documented in this encounter [facility] Healthcare[facility]* Diagnosis Anxiety Anxiety state, unspecified documented in this encounter [facility]* Diagnosis Pubic bone fracture (CMS-HCC)- Primary Pubic bone fracture (CMS-HCC) Anxiety Anxiety state, unspecified Hypertension Unspecified essential hypertension Paroxysmal atrial fibrillation ([facility]) Atrial fibrillation Presence of cardiac pacemaker- MDT Cardiac pacemaker in situ Essential tremor Acquired hypothyroidism Unspecified hypothyroidism [facility] Diagnosis Obstructive airway disease ([facility]) Chronic airway obstruction, not elsewhere classified [facility]* Diagnosis Memory problem- Primary Memory loss documented [facility] encounter [facility] Narrative - Reported* Type Description Date Surgical History bones in feet shaved Surgical Historypins left wristSurgical Historycage in [id number] History open heart [id number] Brgqiicdnetcsfkx7792 [facility] Other History general Narrative - Reported* Type Description Date Surgical History bones in feet shaved Surgical Historypins left wristSurgical Historycage in [id number] History open heart [id number] Mxhhyyvldpbpxxnj5212Gakhwukomtdqwai HistoryfallChristus St. [facility]. [facility] d/t vamncclmpd37/05/2022 [facility] Other History general Narrative - Reported* Type Description Date Medical History Primary osteoarthritis of right knee Medical HistoryPrimary osteoarthritis of right hipMedical HistoryChronic fatigue Medical HistoryEssential hypertensionMedical HistoryVitamin D deficiencySurgical Historybones in feet shavedSurgical Historypins left wristSurgical Historycage in [id number] Historyopen heart [id number] Yflcovuuneihlwde[address] [facility] giagluttbz91/05/2022 [facility] Other InstructionsNot on filedocumented in this encounter [...] for referral (narrative)No reason for referral information availableSheltering Arms Hospital Work Phone: Summary Purpose Family History Relationship Condition Age at Onset Recorded Date/T jacki father Unknown Not SpecifiedDeceasedUnknown Relationship Condition Age at Onset Recorded Date/T jacki father Unknown motherDeceasedUnknown Advance Directives TypeDate RecordedPatient RepresentativeExplanationDNR Physician Order03/08/2025 9:37 AMDate ActivatedDate InactivatedComments02/25/2025 2:30 PM02/28/2025 8:50 PM Date ActivatedDate InactivatedComments11/04/2018 3:48 AM11/05/2018 4:08 PMDate ActivatedDate InactivatedComments10/30/2018 12:43 PM11/03/2018 7:11 PMCode Status Date ActivatedDate InactivatedCommentsFull Code04/14/2022 8:43 PMNameRelationship Healthcare Agent RelationshipCommunicationHeather PocockChildPrimary Decision Maker* Advance Directive Response Recorded Date/ Time Advance Directives No February 12:26pm Date ActivatedDate InactivatedComments11/04/2018 3:48 AM11/05/2018 4:08 PMDate ActivatedDate InactivatedComments10/30/2018 12:43 PM11/03/2018 7:11 PM Advance Directive Response Recorded Date/ Time Advance Directives No April 9:29am Advance Directive Response Recorded Date/ Time Advance Directives No April 10:29am Date ActivatedDate InactivatedComments02/25/2025 2:30 PMDate ActivatedDate InactivatedComments11/04/2018 3:48 AM11/05/2018 4:08 PMDate ActivatedDate InactivatedComments10/30/2018 12:43 PM11/03/2018 7:11 PMTypeDate RecordedPatient RepresentativeExplanationDNR Physician Order03/08/2025 9:37 AMDate ActivatedDate InactivatedComments02/25/2025 2:30 PM02/28/2025 8:50 PM Chief Complaint and Reason for Visit [...] Strain of flexor muscle of left hip Janu st 2024 9:45am Additional Source Comments INFORMATION SOURCE (unrecogn ized section and content) DATE CREATED AUTHOR 03/16/2020 [facility] DATE CREATED AUTHOR AUTHOR'S ORGANIZ ATION 11/28/2021 [facility] DATE CREATED AUTHOR AUTHOR'S ORGANIZ ATION 01/15/2022 [facility] DATE CREATED AUTHOR AUTHOR'S ORGANIZ ATION 04/14/2022 [facility] DATE CREATED AUTHOR AUTHOR'S ORGANIZ ATION 04/16/2022 [facility] DATE CREATED AUTHOR AUTHOR'S ORGANIZ ATION 04/20/2022 [facility] DATE CREATED AUTHOR AUTHOR'S ORGANIZ ATION 04/26/2022 [facility] DATE CREATED AUTHOR AUTHOR'S ORGANIZ ATION 08/26/2022 [facility] DATE CREATED AUTHOR AUTHOR'S ORGANIZ ATION 09/26/2022 [facility] DATE CREATED AUTHOR AUTHOR'S ORGANIZ ATION 07/28/2024 [facility] DATE CREATED AUTHOR AUTHOR'S ORGANIZ ATION 09/27/2024 [facility] DATE CREATED AUTHOR AUTHOR'S ORGANIZ ATION 02/04/2025 [facility] DATE CREATED AUTHOR AUTHOR'S ORGANIZ ATION 03/02/2025 [facility] DATE CREATED AUTHOR AUTHOR'S ORGANIZ ATION 04/14/2025 [facility] Source Comments (unrecognize d section and content) In the event this informatio n is protected by the Federal Confidentiality of Alcohol and Drug Abuse Patient Records regulations: The Federal rules restrict any use of the information to criminally investigate or prosecute any alcohol or drug abuse patient.[facility] Reason for Visit (unrecogniz ed section and content) ReasonCommentscolonoscopy questionsReasonCommentsFallNo LOC, tripped walking dog, on Plavix, SDH no midline shift per report. Neuro intactReasonComments FungusEstablished pt presents today for lamisil fuv. Pt states nail appearance has improved. Using vinegar topically.ReasonOnset DcisUyhuikkw13/31/24 LOOMUS XPMNMDPUYS18/12/2024easonCommentsMed RefillReasonCommentsEstablish CareHip Pain Left hipReasonOnset DateCommentsMed Hvnwkn9908/25/2024ReasonCommentsOsteoporosis ReasonCommentsNail careSamannyra Inocencio Alves is a 83 y.o. female who presents for Lamisil FUV. Patient continues vinegar daily.ReasonOnset DateCommentsMed Refill 11/08/2024ReasonCommentsOutpatient InfusionReclastSpecialtyDiagnoses / ProceduresReferred By ContactReferred To Contact Diagnoses Osteopenia, unspecified location Procedures [place] ZOLEDRONIC ACID 1MG Deepika Garcia MD [address] [place] [address] Phone: tel: fax: Deepika Garcia MD [address] [place] [address] Phone: tel: fax: Referral IDStatusReasonStart DateExpiration DateVisits RequestedVisits [id number] DateCommentsMed Refill 01/04/2025ReasonOnset DateCommentsMed Thwwrz1901/19/2025ReasonCommentsToenail Care Pt is here today requesting nail careSS: 10ReasonCommentsFallSpecialtyDiagnoses / ProceduresReferred By ContactReferred To Contact Diagnoses Pubic bone fracture ([facility]) Harriett Alberts MD [address], [facility] [address] [place] [address] Phone: tel: fax: Referral IDStatusReasonStart DateExpiration DateVisits RequestedVisits [id number] Change RequestReasonOnset DateComments Home Health Care03/30/2025ReasonOnset DateCommentsUpdated Isgexi2504/14/2025 Care Teams (unrecognized sec tion and content) [...] Start: April 26, 2024 End: April 26, 2024Veronica Menjviar APRN ESCROW AGENT-CAttending ProviderActive Start: April 26, 2024 End: April 26, 2024 Team Status: Active Member Role Status Dates Jessica Maxwell MD Primary Care Provide r, Attending Provider Active Start: November 26, 2023 Team MemberRelationshipSpecialtyStart DateEnd Date Jessica Maxwell MD [facility] [place] [phone] PCP - GeneralFamily Civpxvqt18/22/14 Jayant Ambrocio [address] [place] [address] Cardiology11/18/19Team MemberRelationshipSpecialtyStart DateEnd Date Jessica Maxwell MD [address] [place] [address] PCP - GeneralFamily Kvvhwdgl92/6/22 Team Status: Inactive Member Role Status Dates Jeb Salas DO Attending Provider Active Team MemberRelationshipSpecialtyStart DateEnd Date David Arellano DO [address] [place] [address] PCP - Generalmily Siayghds65/19/23Team MemberRelationshipSpecialtyStart Date End Date David Arellano DO [address] [place] [address] [facility] Ybnvpwzw23/19/23 Team Status: Inactive Member Role Status Dates Jessica Maxwell MD Attending Provider Active St art: June 23, 2023 End: June 23, 2023 Team Status: Inactive Member Role Status Dates Jessica Maxwell MD Attending Provider Active St art: June 30, 2023 End: June 30, 2023 Team Status: Active Member Role Status Dates Jessica Maxwell MD Primary Care Provider Active Start: August 22, 2023 Valdez Dorado ProviderActiveStart: August 22, 2023 Team Status: Inactive Member Role Status Dates Jessica Maxwell MD Primary Care Provide r, Attending Provider Active Start: September 18, 2023 End: September 18, 2023Team MemberRelationshipSpecialtyStart DateEnd Date Jessica Maxwell MD [address] [place] [address] PCP - General02/21/17Team MemberRelationshipSpecialtyStart DateEnd Date Jessica Maxwell MD [address] [place] [address] PCP - General02/21/17Team MemberRelationshipSpecialtyStart DateEnd Date Halima Hooks MD [address], [place] [address] [facility] [place] [address] PCP - GeneralInternal Medicine07/27/24Team MemberRelationshipSpecialtyStart Date End Date Halima Hooks MD [address], [place] [address] PCP - GeneralInternal Medicine07/27/24Team MemberRelationshipSpecialtyStart Date End Date Halima Hooks MD [address], [place] [address] PCP - GeneralInternal Medicine07/27/24Team MemberRelationshipSpecialtyStart Date End Date Halima Hooks MD [address], [place] [address] PCP - GeneralInternal Medicine07/27/24Team MemberRelationshipSpecialtyStart Date End Date Anthony Engle MD [address] [place] [address] PCP - GeneralPediatrics10/27/24Team MemberRelationshipSpecialtyStart DateEnd Date Anthony Engle MD [address], [place] [facility] [address] PCP - GeneralPediatrics10/27/24Team MemberRelationshipSpecialtyStart DateEnd Date Halima Hooks MD [address], [place] [facility] [address] PCP - GeneralInternal Medicine07/27/24Team MemberRelationshipSpecialtyStart Date End Date Halima Hooks MD [address], [place] [address] [facility] [place] [address] PCP - GeneralInternal Medicine07/27/24Team MemberRelationshipSpecialtyStart Date End Date Halima Hooks MD [address], [facility] [place] [address] PCP - GeneralInternal Medicine07/27/24Team MemberRelationshipSpecialtyStart Date End Date Halima Hooks MD [address], [place] [facility] [address] PCP - GeneralInternal Medicine07/27/24 Team Status: Active Member Role Status Dates PHYSICIAN NO FAMILY Primary Care Provider Active Team Status: Active Member Role Status Dates PHYSICIAN NO FAMILY Primary Care Provider Active Start: January 31, 2025 Jose Luis Hopkins ProviderActiveStart: January 31, 2025 Team Status: Inactive Member Role Status Dates PHYSICIAN NO FAMILY Primary Care Provider Active Start: January 31, 2025 End: January 31, 2025JuJose Luis Valero ProviderActiveStart: January 31, 2025 End: January 31, 2025Team MemberRelationshipSpecialtyStart DateEnd Date Anthony Engle MD [address], [address] [place] [address] PCP - GeneralPediatrics10/27/24Team MemberRelationshipSpecialtyStart DateEnd Date Anthony Engle MD [address], [address] [place] [address] PCP - GeneralPediatrics10/27/24Team MemberRelationshipSpecialtyStart DateEnd Date Halima Hooks MD [address], [facility] [address] PCP - GeneralInternal Medicine07/27/24Te MemberRelationshipSpecialtyStart Date End Date Halima Hooks MD [address], [place] [address] PCP - GeneralInternal Medicine07/27/24Team MemberRelationshipSpecialtyStart Date End Date Halima Hooks MD [address], [place] [address] PCP - GeneralInternal Medicine07/27/24 Ordered Prescriptions (unrec ognized section and content) PrescriptionSigDispensedRefillsStart DateEnd Date clopidogrel (PLAVIX) 75 MG tablet Take 1 tablet by mouth daily Hold plavix x 2 weeks . Follow up with primary providers 30 tablet Scheduled Active and Recently Administ ered Medications (unrecognized section and content) Medication Order acetaminophen (TYLENOL) tablet 1,000 mg 1,000 mg, Oral, EVERY 8 HOURS SCHEDULED (3 times per day), First dose on 04/14/22 at 2200, UntilDiscontinued, Maximum dose of acetaminophen is 4000 mg from all sources in 24 hours. * 2111 (Given - Provider: August Mcarthur RN) * 0610 (Given - Provider: Aide Fong RN) * 1541 (Given - Provider: Elaine Degroot RN) * 2200 (Due) levothyroxine (SYNTHROID) tablet 50 mcg 50 mcg, Oral, DAILY, First dose on Fri04/15/22 at 0700, Until Discontinued, Tube feeding (TF) interaction, obtain physician order to manage, recommend holding TF for 30 minutes before and after dose. * 0610 (Given - Provider: Aide Fong RN) liothyronine (CYTOMEL) tablet 5 mcg 5 mcg, Oral, DAILY, First dose on Fri04/15/22 at 0900, Until Discontinued * 1103 (Given - Provider: Elaine Degroot RN) metoprolol tartrate (LOPRESSOR) tablet [...] (cold, hot or room temperature) then drink * 0031 (Not Given - Provider: Aide Fong RN - Reason: Patient/family refused - Comment: Bowelmovement yesterday) * 0948 (Not Given - Provider: Elaine Degroot RN - Reason: Patient/family refused) sodium chloride flush 0.9 % injection 5-40 mL 5-40 mL, IntraVENous, EVERY 12 HOURS SCHEDULED (2 times per day), First dose on Fri04/14/22 at 2100, Until Discontinued, For Line Patency: Peripheral IV = 5 mL; Midline or Central Line = 10 mL/lumen.If following IV push medication, administer flush at same rate as the IV push. Flush volume is determined by type of infusion therapy being given. For non-viscous solutions use: Peripheral IV = 5 mL Midline or Central Line = 10 mL/lumen For viscous solutions (i.e. blood components, parenteral nutrition, contrast media, or after obtaining blood sample) use: Peripheral IV = 10 mL Midline or CentralLine = 20 mL/lumen * 2111 (Given - Provider: August Mcarthur RN) * 110 (Given - Provider: Elaine Degroot, DILAN) * 2100 (Due) spironolactone (ALDACTONE) tablet 25 mg 25 mg, Oral, DAILY, First dose on Fri04/15/22 at 0900, Until Discontinued * 1541 (Given - Provider: Elaine Degroot, DILAN - Comment: as requested by patient) Medication Order/ 0.9 % sodium chloride infusion (CANCELED) IntraVENous, at 75 mL/hr, CONTINUOUS, Starting on Fri04/14/22 at 2044 * 2111 (New Bag - Provider: August Mcarthur RN) Medication Order/ 0.9 % sodium chloride infusion IntraVENous, at [...] at 0013, Until Discontinued, Anxiety, facial tic * 0052 (Given - Provider: Aide Fong RN) iopamidol (ISOVUE-370) 76 % injection 130 mL (COMPLETED) 130 mL, IntraVENous, IMG ONCE PRN, 1 dose, Starting on Fri04/14/22 at 1936, Until Fri04/14/22 at 1937, Other * 1936 (Given - Provider: Asia Gonzalez - Comment: [id number] 09/2024) ondansetron (ZOFRAN) injection 4 mg(Linked Group [...] For viscous solutions (i.e. blood components, parenteral nutrition,contrast media, or after obtaining blood sample) use: Peripheral IV = 10 mL Midline or Central Line= 20 mL/lumen Order Group 1: ondansetron (ZOFRAN-ODT) disintegrating tablet 4 mgJump to med 4 mg, Oral, EVERY 8 HOURS PRN, Starting on 04/14/22 at 2033, Until Discontinued, Nausea, Vomiting Or ondansetron (ZOFRAN) injection 4 mgJump to med 4 mg, IntraVENous, EVERY 6 HOURS PRN, Starting on Fri04/14/22 at 2033, Until Discontinued, Nausea, Vomiting
Administer if oral route cannot be used.
Medication Order acetaminophen (OFIRMEV) IVPB Premix 1,000 mg 1,000 mg, intravenous, at 400 mL/hr, Administer over 15 Minutes, Every 6 hours, First dose on 02/27/25 at 1415, For 24 hours * 1432 (New Bag - Provider: Rosario Weller, RN) * 1447 (Stop Bag - Provider: Rosario Weller RN) * 2043 (New Bag - Provider: Merry Cardoza RN) * 205 (Canceled Entry - Provider: Merry Cardoza RN) * 220 (Restarted - Provider: Merry Cardoza RN - Comment: iv restarted) * 220 (Stop Bag - Provider: Merry Cardoza RN) * 2337 (Canceled Entry - Provider: Merry Cardoza RN - Comment: Cancelled from back documented administration.) * 0550 (New Bag - Provider: Merry Cardoza RN) * 0605 (Stop Bag - Provider: Merry Cardoza RN) * 1200 (Not Given - Provider: Ten Gaston RN - Reason: Contraindicated - Comment: over cummalitive amount) cholecalciferol (vitamin D3) (VITAMIN D3) capsule 5,000 Units 5,000 Units, oral, Daily, First dose on 02/26/25 at 1145 * 1145 (Not Given - Provider: Lovely Alves RN - Reason: Take Home Medication - Comment: Patient tookhome medications.) * 0843 (Given - Provider: Rosario Weller RN) * 0838 (Given - Provider: Ten Gaston RN) clopidogreL (PLAVIX) tablet 75 mg 75 mg, oral, Daily, First dose on 02/26/25 at 1145, Look-alike/sound-alike medication - verify indication for use. * 1145 (Not Given - Provider: Lovely Alves RN - Reason: Take Home Medication - Comment: Patient tookhome medications.) * 0843 (Given - Provider: Rosario Weller RN) * 0838 (Given - Provider: Ten Gaston RN) enoxaparin (LOVENOX) syringe 40 mg 40 mg, subcutaneous, Daily, First dose on 02/26/25 at 0600, Scheduling/ADT, When Creatinine Clearance 30 mL/min or greater Look-alike/sound-alike medication - verify indication for use. * 0507 (Given - Provider: Brigida Medrano RN) * 0551 (Given - Provider: Bhavna Wilder RN) * 0543 (Given - Provider: Merry Cardoza RN) levothyroxine (SYNTHROID, LEVOTHROID) tablet 50 mcg 50 mcg, oral, Every morning before breakfast, First dose on 02/26/25 at 1145, TAKE 1 TABLET BY MOUTH EVERY DAY IN THE MORNING ON EMPTY STOMACH FOR 90 DAYS Look-alike/sound-alike medication. Verifyindication for use Administer on empty stomach at least ONE hour before or TWO hours after food Enteral Feeding: For 7 days or less of tube feeding- do NOT hold tube feedings, after 7 days- hold tube feedings ONE hour before and ONE hour after administration DOES NOT APPLY TO NEONATES Monitor thyroid function tests weekly * 1145 (Not Given - Provider: Lovely Alves RN - Reason: Take Home Medication - Comment: Patient tookhome medications.) * 0551 (Given - Provider: Bhavna Wilder RN) * 0700 (Canceled Entry - Provider: Bhavna Wilder RN) * 0542 (Given - Provider: Merry Cardoza RN) liothyronine (CYTOMEL) tablet 5 mcg 5 mcg, oral, Daily, First dose on 02/26/25 at 1145, Look-alike/sound-alike medication - verify indication for use. * 1145 (Not Given - Provider: Lovely Alves RN - Reason: Take Home Medication - Comment: Patient tookhome medications.) * 0555 (Given - Provider: Bhavna Wilder RN) * 0900 (Canceled Entry - Provider: Bhavna Wilder RN) * 0542 (Given - Provider: Merry Cardoza RN) sodium chloride 0.9 % flush 3 mL 3 mL, intravenous, Every 12 hours scheduled, First dose on Fri02/25/25 at 1445, Scheduling/ADT * 0900 (Given - Provider: Lovely Alves RN) * 2100 (Canceled Entry - Provider: Bhavna Wilder RN) * 0900 (Given - Provider: Rosario Weller RN) * 2030 (Given - Provider: Merry Cardoza RN) * 0848 (Given - Provider: Ten Gaston RN) * 2100 (Due) spironolactone (ALDACTONE) tablet 25 mg 25 mg, oral, Daily, First dose on 02/26/25 at 1145 * 1145 (Not Given - Provider: Lovely Alves RN - Reason: Take Home Medication - Comment: Patient tookhome medications.) * 0843 (Given - Provider: Rosario Weller, DILAN) * 0838 (Given - Provider: Ten Gaston RN) Medication Order509// acetaminophen (TYLENOL) 160 mg/5 mL suspension 650 mg (CANCELED) 650 mg, oral, Every 6 hours PRN, mild pain - pain scale 1-3, Starting on 02/26/25 at 1404, ShakeWell. * 1504 (Given - Provider: Lovely Alves RN) * 2120 (Canceled Entry - Provider: Bhavna Wilder RN) * 0607 (Given - Provider: Bhavna Wilder RN) * 1209 (Given - Provider: Rosario Weller RN) acetaminophen (TYLENOL) tablet 650 mg (CANCELED) 650 mg, oral, Every 4 hours PRN, mild pain - pain scale 1-3, temperature greater than 38 C, headaches, Temperature greater than 38.3 C, Starting on Fri02/25/25 at 1430, Scheduling/ADT, [Warning: Total Acetaminophen not to exceed more than 4 grams (4000 mg) in 24 hours] * 0304 (Given - Provider: Brigida Medrano RN) * 0819 (Given - Provider: Lovely Alves RN) alum-mag hydroxide-simeth (MAALOX) 200-200-20 mg/5 mL suspension 30 mL 30 mL, oral, 4 times daily after meals and at bedtime as needed, dyspepsia, Starting on Fri02/25/25at 1430, Scheduling/ADT, Look-alike/sound-alike medication - verify indication for use. Primo well., Indications: dyspepsia clonazePAM (KlonoPIN) tablet 0.5 mg 0.5 mg, oral, 2 times daily PRN, anxiety, Starting on 02/26/25 at 1132, Look-alike/sound-alike medication - verify indication for use. * 2002 (Given - Provider: Bhavna Wilder, DILAN) * 0844 (Given - Provider: Rosario Weller, RN) * 2202 (Given - Provider: Merry Cardoza, RN) * 0838 (Given - Provider: Ten Gaston, RN) * 1800 (Given - Provider: Ten Gaston, RN) dextrose (GLUTOSE) 40 % gel 15 g 15 g, oral, As needed, low blood sugar, blood glucose less than 70 mg/dL, Starting on Fri02/25/25 at 1430, Scheduling/ADT, If patient conscious and taking PO. If blood glucose is not greater than 70 mg/dL after initial treatment, repeat treatment. dextrose 5 % (D5W) infusion 100 mL/hr, intravenous, Continuous PRN, blood glucose less than 70 mg/dL, Starting on Fri02/25/25 at 1430, For 365 days, Scheduling/ADT, Use immediately following dextrose 50% or glucagon treatment for patients who are unconscious or NPO. Contact prescriber for additional orders. If blood glucose is not greater than 70 mg/dL after initial treatment, repeat treatment. dextrose 50 % in water (D50W) 50% solution 25 mL 25 mL, intravenous, As needed, low blood sugar, blood glucose less than 70 mg/dL and unconscious orNPO with IV access, Starting on Fri02/25/25 at 1430, Scheduling/ADT, Push over 1-3 minutes STAT. Ifconscious and not NPO, immediately follow with meal tray or high protein (7 grams) snack if tray not available. If NPO, initiate 5% dextrose in water at 100 mL/hr and contact prescriber for additional orders. If blood glucose is not greater than 70 mg/dL after initial treatment, repeat treatment. VESICANT (RED) Warning: HYPERTONIC solution. glucagon HCL injection 1 mg 1 mg, intramuscular, As needed, low blood sugar, blood glucose less than 70 mg/dL and unconscious or NPO without IV access., Starting on Fri02/25/25 at 1430, Scheduling/ADT, If conscious and not NPO,immediately follow with meal tray or high protein (7Grams) snack if tray not available. If NPO, initiate IV 5% Dextrose/Water at 100 mL/hr and contact prescriber for additional orders. If blood glucose is not greater than 70 mg/dL after initial treatment, repeat treatment. ibuprofen (MOTRIN) tablet 400 mg 400 mg, oral, Every 6 hours PRN, moderate pain - pain scale 4-6, Starting on Fri02/27/25 at 1406, Look-alike/sound-alike medication - verify indication for use. Take/Give with food or milk. * 2013 (Given - Provider: Merry Cardoza RN) * 0838 (Given - Provider: Ten Gaston RN) magnesium sulfate IVPB 2000 mg/50 mL in iso-osmotic water (40 mg/mL premix) 2,000 mg, intravenous, at 25 mL/hr, Administer over 120 Minutes, As needed, Magnesium level 1.7 to 1.9 mg/dL, or Ionized Magnesium level 0.45 to 0.5 mmol/L., Starting on Fri02/25/25 at 1430, Scheduling/ADT, Recheck magnesium level 4 hours after infusion complete. With each magnesium result continuethe replacement orders as needed. magnesium sulfate IVPB 4000 mg/100 mL in iso-osmotic water (40 mg/mL premix) 4,000 mg, intravenous, at 25 mL/hr, Administer over 240 Minutes, As needed, Magnesium level 1.6 mg/dL or less, or Ionized Magnesium level 0.44 mmol/L or less, Starting on Fri02/25/25 at 1430, Scheduling/ADT, Recheck magnesium level 4 hours after infusion complete. With each magnesium result continue the replacement orders as needed. ondansetron (PF) (ZOFRAN) injection 4 mg 4 mg, intravenous, Every 6 hours PRN, nausea, vomiting, Starting on Fri02/25/25 at 1430, Scheduling/ADT, Intravenous administration preferred to be given over 2-5 minutes. potassium chloride (K-TAB,KLOR-CON) CR tablet 30-50 mEq(Linked Group 1) 30-50 mEq, oral, As needed, Potassium Supplementation, Starting on Fri02/25/25 at 1430, Scheduling/ADT, Progress to oral potassium replacement when patient tolerating oral intake. If dose administered, recheck potassium level 4 hours after last dose. For potassium level 3.4 to 3.8 mmol/L and GFR 30mL/min or greater=30 mEq. For potassium level 3.1 to 3.3 mmol/L and GFR 30 mL/min or greater=40 mEq. For potassium level 3 mmol/L or less and GFR 30 mL/min or greater=50 mEq. Do not crush or chew. potassium chloride (KAYCIEL) 20 mEq/15 mL solution 30-50 mEq(Linked Group 1) 30-50 mEq, oral, As needed, Potassium Supplementation, Starting on Fri02/25/25 at 1430, Scheduling/ADT, Progress to oral potassium replacement when patient tolerating oral intake. If dose administered, recheck potassium level 4 hours after last dose. For potassium level 3.4 to 3.8 mmol/L and GFR 30mL/min or greater=30 mEq. For potassium level 3.1 to 3.3 mmol/L and GFR 30 mL/min or greater=40 mEq. For potassium level 3 mmol/L or less and GFR 30 mL/min or greater=50 mEq. Must dilute before use -Mix in 3-8 ounces of water or juice before administration When administering in feeding tube, flushbefore and after per policy and monitor potassium levels potassium chloride IVPB 10 mEq/100 mL in water (0.1 mEq/mL premix)(Linked Group 1) 10 mEq, intravenous, at 100 mL/hr, Administer over 60 Minutes, As needed, POTASSIUM REPLACEMENT, Starting on Fri02/25/25 at 1430, Scheduling/ADT, IV if unable to use oral/enteral with the current dosing strategies Potassium level 3 mmol/L or less administer Potassium Chloride 50 mEq Potassium level3.1 to 3.3 mmol/L administer Potassium Chloride 40 mEq Potassium level 3.4 to 3.8 mmol/L administerPotassium Chloride 30 mEq Use central line when applicable. Recheck potassium level 1 hour after total IVPB infusion complete, With each potassium result continue the replacement orders as needed VESICANT (YELLOW) Infuse each 10 mEq over a minimum of 1 hour. sennosides-docusate sodium (SENOKOT-S) 8.6-50 mg 1 tablet 1 tablet, oral, Every 12 hours PRN, constipation, Starting on Fri02/25/25 at 1430, Scheduling/ADT sodium chloride 0.9 % flush 3 mL 3 mL, intravenous, As needed, line care, before and after each intermittent use, Starting on Fri02/25/25 at 1430, Scheduling/ADT sodium chloride 0.9 % flush bag 25 mL, intravenous, at 100 mL/hr, Administer over 15 Minutes, As needed, line care, line care afterIVPB administration, Starting on Fri02/25/25 at 1430, Scheduling/ADT * 2034 (Restarted - Provider: Merry Cardoza RN) * 223 (Stop Bag - Provider: Merry Cardoza RN) * 2337 (Canceled Entry - Provider: Merry Cardoza RN - Comment: Cancelled from back documented administration.) * 0548 (Restarted - Provider: Merry Cardoza RN) * 0620 (Rate/Dose Verify - Provider: Merry Cardoza RN) * 0639 (Rate/Dose Verify - Provider: Merry Cardoza RN) * 1156 (New Bag - Provider: Ten Gatson, DILAN) * 1157 (Stop Bag - Provider: Ten Gaston RN) sodium chloride 0.9 % infusion 20 mL/hr, intravenous, Continuous PRN, to maintain patency of lines, Starting on Fri02/25/25 at 1430, Scheduling/ADT Order Group 1: potassium chloride (K-TAB,KLOR-CON) CR tablet 30-50 mEqJump to med 30-50 mEq, oral, As needed, Potassium Supplementation, Starting on Fri02/25/25 at 1430, Scheduling/ADT, Progress to oral potassium replacement when patient tolerating oral intake. If dose administered, recheck potassium level 4 hours after last dose. For potassium level 3.4 to 3.8 mmol/L and GFR 30mL/min or greater=30 mEq. For potassium level 3.1 to 3.3 mmol/L and GFR 30 mL/min or greater=40 mEq. For potassium level 3 mmol/L or less and GFR 30 mL/min or greater=50 mEq. Do not crush or chew. Or potassium chloride (KAYCIEL) 20 mEq/15 mL solution 30-50 mEqJump to med 30-50 mEq, oral, As needed, Potassium Supplementation, Starting on Fri02/25/25 at 1430, Scheduling/ADT, Progress to oral potassium replacement when patient tolerating oral intake. If dose administered, recheck potassium level 4 hours after last dose. For potassium level 3.4 to 3.8 mmol/L and GFR 30mL/min or greater=30 mEq. For potassium level 3.1 to 3.3 mmol/L and GFR 30 mL/min or greater=40 mEq. For potassium level 3 mmol/L or less and GFR 30 mL/min or greater=50 mEq. Must dilute before use -Mix in 3-8 ounces of water or juice before administration When administering in feeding tube, flushbefore and after per policy and monitor potassium levels Or potassium chloride IVPB 10 mEq/100 mL in water (0.1 mEq/mL premix)Jump to med 10 mEq, intravenous, at 100 mL/hr, Administer over 60 Minutes, As needed, POTASSIUM REPLACEMENT, Starting on Fri02/25/25 at 1430, Scheduling/ADT, IV if unable to use oral/enteral with the current dosing strategies Potassium level 3 mmol/L or less administer Potassium Chloride 50 mEq Potassium level3.1 to 3.3 mmol/L administer Potassium Chloride 40 mEq Potassium level 3.4 to 3.8 mmol/L administerPotassium Chloride 30 mEq Use central line when applicable. Recheck potassium level 1 hour after total IVPB infusion complete, With each potassium result continue the replacement orders as needed VESICANT (YELLOW) Infuse each 10 mEq over a minimum of 1 hour. Goals (unrecognized section and content) Goals may [...] BE BASED ON THE PRIMARY CLINICAL RECORDS. [facility]. provides no warranty or guarantee of the accuracy or completeness of information in this document.
[2025-05-16 08:44] VITALS: BP 111/68; PULSE 64; TEMP 36.2; O2SAT 98
[2025-05-16 09:27] VITALS: BP 159/77; PULSE 87; O2SAT 98
[2025-05-16 09:28] VITALS: BP 161/73; PULSE 84; O2SAT 97
[2025-05-16] MEDS: BUPIVACAINE HCL 0.25% PF 25 MG/10 ML VIAL 2 ML INJ (09:28)
[2025-05-16] MEDS: IOHEXOL 240 MG/ML - 10 ML VIAL INJ (09:28)
[2025-05-16] MEDS: LIDOCAINE HCL 2% 400 MG/20 ML MDV INJ (09:28)
[2025-05-16] MEDS: METHYLPREDNISOLONE ACETATE 40 MG/ML VIAL INJ (09:29)
--- NOTE | 2025-05-16 09:37 | W.PM.PROCNOT ---
Date of procedure: 05/16/25 Pre-op diagnosis: Pain due to left sacroiliitis Post-op diagnosis: same as pre-op Procedure: Procedure: Left sacroiliac joint injection Medications: Bupivacaine 0.25% 4cc, depomedrol 40mg After informed consent was obtained, the patient was brought to the medical procedure unit and placed in the prone position, when a timeout was completed verifying correct patient, procedure, site, positioning, implant, and/or special equipment.? The skin overlying the area was prepped and draped in standard sterile fashion using alcohol.? A 25-gauge needle was inserted towards the left sacroiliac joint under direct fluoroscopic imaging.? Needle tip was advanced until the joint was encountered.? We instilled a total of 2 mL of solution.? Postoperatively needles were removed.? The patient tolerated the procedure well without complication.? The patient reported reduction in pain symptoms postoperatively. Anesthesia: Local Surgeon: June Workman Pathology: none sent Condition: stable Disposition: no change
== END 2025-05-16 09:39 | disposition home or self-care (01) ==
PROVIDERS: PCP Student in an Organized Health Care Education/Training Program; Visit Provider Anesthesiology
DX: M46.1 Sacroiliitis, not elsewhere classified (principal); G89.29 Other chronic pain
CPT/HCPCS: 27096; J0665; J1010; Q9966

== ENCOUNTER 2025-05-26 14:36 | Outpatient (OUT) | payer MEDICARE, OTHER, SELFPAY ==
--- NOTE | 2025-05-26 14:39 | P.CN_ITS ---
Consult Note: HPI Data of Consult Patient: known to practice within the last 3 years Consult date: 05/26/25 Requesting Physician: Bhavna Forbes NP Primary Care Provider: Amrita Hooks ND Consult Narrative Reason for consult: left SIJ pain Narrative: Ayana Alves a pleasant 84 year old female presents for evaluation of left SIJ pain as referred by Dr Chacko. Pt has a hx of lumbar fusion/surgery at unknown levels. 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 cannot take NSAIDs, on plavix. denies recent fall/injury. recently underwent left SIJ injection with >50% improvement ongoing. notes pain 2-3/10 in left lateral hip increasing to 6 /10 with standing, walking, housework, lifting, and ADLs. cc:: CC: Bhavna Forbes NP [facility] Medical History (Updated 05/26/25 @ 14:55 by Bhavna Forbes NP) Anxiety ?F41.9 - Anxiety disorder, unspecified (ICD-10) Hyperthyroidism ?E05.90 - Thyrotoxicosis, unspecified without thyrotoxic crisis or storm (ICD-10) HTN (hypertension) ?I10 - Essential (primary) hypertension (ICD-10) Pacemaker ?Z95.0 - Presence of cardiac pacemaker (ICD-10) Surgical History (Updated 05/11/25 @ 14:33 by Heidy Alves RN) History of lumbar fusion ?Z98.1 - Arthrodesis status (ICD-10) History of total thyroidectomy ?Z98.890 - Other specified postprocedural states (ICD-10) ?Z90.89 - Acquired absence of other organs (ICD-10) History of bunionectomy ?Z98.890 - Other specified postprocedural states (ICD-10) History of open heart surgery ?Z98.890 - Other specified postprocedural states (ICD-10) Meds Home Medications and Allergies Home Medications ?Medication ?Instructions ?Recorded ?Confirmed ?Type clonazepam 0.5 mg tablet 0.5 mg PO BID 02/17/2505/16 History clopidogrel 75 mg tablet (Plavix) 75 mg PO DAILY 02/1705/16/25 History collagen, hydrolyzed 1 tab PO 02/17/25 History gram-ascorbate calcium 10 mg tablet inulin 2 gram chewable tablet g PO 02/17/25 History (Prebiotic Fiber) ipratropium bromide 42 mcg (0.06 2 spray intranasal TI D 02/17/25 05/16/25 History %) nasal spray levothyroxine 50 mcg capsule 50 mcg PO DAILY 02/17/25 05/16/25 History liothyronine 5 mcg tablet 5 mcg PO DAILY 02/17/2501/31 History Allergies Allergy/AdvReac Type Severity Reaction Status Date / Time celecoxib (From Celebrex) Allergy Intermediate Hives Verified 05/16/25 08:45 Sulfa (Sulfonamide Allergy Unknown Hives Verified 05/16/25 08:45 Antibiotics) Exam Constitutional Documenting provider has reviewed patient's vital signs: yes Common normals: no apparent distress, oriented x3 and alert General appearance: cooperative HENMT Common normals: normocephalic, hearing grossly normal bilaterally and moist oral mucous membranes Head and scalp: normocephalic Eye Common normals: PERRL Pupil: PERRL Neck & C-Spine Common normals: full ROM General: normal visual inspection Chest Common normals: inspection of chest normal Respiratory Common normals: normal respiratory effort, no retractions and no use of accessory muscles Back & Pelvis Lumbar spine/lower back: no pain with ROM and no lumbar spinal tenderness Sacroiliac joints: SI joints normal Other: left sij negative andrea(patricks), gaenslens, thigh thrust, compression test mild to moderate tenderness over left GTB Neuro Common normals: oriented x3 Sensorium/orientation: alert Psych Common normals: mental status grossly normal, thought process normal, cooperative, affect normal, speech normal and activity/motor behavior normal Speech: normal speech Thought process: normal thought process Results Additional Findings Additional findings: If on a controlled substance or opioids, I have checked an [place] report on this patient and there are no aberrancies noted in the prescribing history.??If on a controlled substance or opioid a drug screen was completed and reviewed within the last year, and if there has not been a drug screen completed we ordered one today to monitor higher risk, state monitored pain medication use. As part of providing excellent, safe, comprehensive care, the following was completed at our patient's visit: 1. A medication reconciliation and review to ensure accurate knowledge of current/active medications, including asking our patients to inform us about any aksb-hds-ohqyrpb medications or herbal remedies/nutritional supplements/alternative remedies. 2. A review to specifically ensure our patients have had annual screening for screening for depression, screening for tobacco use, and screening for unhealthy alcohol use. For concerning screenings had a discussion with the patient, provided patient education, and recommended follow-up with primary care provider when appropriate. If patient noted with a risk of falling, they received education on strength, gait, and balance training to prevent future risk of falling. Portions of this note may have been carried over from the previous visit and updated as appropriate. Please note this office utilizes paper charting in addition to the electronic medical record. A list of current medications, vitals, and PMH is available there as the clinical staff outside of myself do not have access to [employer] charting during the clinic day operations. As part of providing quality comprehensive care the current medications, vitals, and PMH were reviewed in the paper chart. Assessment and Plan Assessment and Plan (1) Sacroiliitis: (2) Greater trochanteric bursitis of left hip: Plan pain well controlled post left SIJ injection, no additional f/u appointments with orthopedics at this time. pt declining left GTB injection with Dr Workman, can call to schedule if pain worsens. f/u 3 months, sooner if needed
--- OUTSIDE RECORDS SUMMARY | 2025-05-26 14:39 | XMS_ITS | Patient Health Record ---
Author Organization [facility] Address [address] [place] [id number] Care Team Providers Care Sternman Name Role Phone Yasmin Ríos Primary Care Provider Veronica Nolen Unavailable [phone] Junior Duncan Unavailable Unavailable Allergies Allergen (clinical drug ingredient) Drug/Non Drug Allergy documented on EMR Reaction Allergy Type Onset Date Status Substance with sulfonamide s tructure and antibacterial mechanism of action (substance) sulfa (uncoded) Unknown Anson salgado Active Reason For Referral No Information Medications Medication SIG (Take, Route, Frequency, Duration) Notes Start Date End Date Status Levothyroxine Sodium ActiveLisinoprilActiveVerapamil HClActiveSpironolactoneActiveALPRAZolamActive Folic AcidActiveCod Liver OilActiveGarlicActive Social History Tobacco Use: Social History Observation Description Date Details (start date - stop date) Former Smoker NA - NA Alcohol Screen Question Answer Notes Did you have a drink containing alcohol in the p ast year? Yes How often did you have a drink containing alcohol in the past year?Monthly or less (1 point)How many drinks did you have on a typical day when you were drinking in the past year?1 or 2 drinks (0 point)How often did you have 6 or more drinks on one occasion in the past year?Never (0 point)Points1 InterpretationNegativeSmoking Question Answer Notes Status former smoker Additional Findings: Tobacco Non-UserCurrent non-smokerSection Notes: Problems Problem Type SNOMED Code ICD Code Onset Dates Problem Status W/U Status Risk Notes Problem Diarrhea (49190857) Diarrhea, unspecified type (R19.7) Activeconfirmed Plan Of Treatment No Information Insurance Providers Payer Name Payer Address Payer Phone Subscriber Number Group Number Insured Name Patient Relationship to Insured Coverage Start Date Coverage End Date Medicare B [facility] [place] [address] [place] [address] [id number] Lien Alves - patient is the insured[facility] [address] [address] [place] [address] [phone], MarivelJessicagianluca - patient is the insured Medical (General) History Medical History History ICD Code hypertension Surgical History Surgery Date(Month/Year) tonsillectomy thyroidectomy, subtotalcataract extraction, bilateralback surgerycolonoscopy (06/2016, 09/2009, 07/2004, 07/1999)EGD (06/2016)
--- OUTSIDE RECORDS SUMMARY | 2025-05-26 14:39 | XMS_ITS ---
Author Organization [facility] Care Team Providers Care Powder Expert Name Role Phone Azalea Savage Unavailable Unavailable Sha Juarez Unavailable Unavailable Allergies and adverse reactions Code CodeSystem Substance Reaction Severity StartDate Concern Status 709164 RXNORM Celecoxib Unknown 02/28/2025 active 99621 RXNORM Pantoprazole Unknown 02/28/[address] Sulfa Antibiotics Unknown 02/28/2025 active Care Team Name Role Address Phone Organization Dates Sha Juarez PCP [address], [place], [address], [place] (Office): : : [facility] 02/28/2025 - 03/30/2025 Azalea Savage [address], [place], [address], [facility] (Office): : : [facility] 02/28/2025 - 03/30/2025 Goals Section Goals Description Status Target Date Maintain baseline VS x's through next review Act soila 06/13/2025 Maintain continence and prevent UTI through next review. Active 06/13/2025 No adverse side effects of psychotropic medicati on x's 90 days. Active 06/13/2025 No s/sx of abnormal bleeding or bruising through next review. Active 06/13/2025 Prevent falls through next review. Active 06/13/2025 Prevent skin breakdown r/t pressure through next review. Active 06/13/2025 Resident Will Report Satisfactory Pain Control A ctive 06/13/2025 Resident will continue to re ceive support from family and friends to help maintain mood. Active 06/13/2025 Resident will demonstrate relaxed facial express ions Active 06/13/2025 [facility] with services as necessary upon completion of rehab Active 06/13/2025 Resident will express feelin gs d/t lack of control over illness and/or placement Active 06/13/2025 Resident will express positi ve aspect of self and/or situation daily through next review Active 06/13/2025 Resident will receive daily opportunities for social contact through the review date. Active 06/13/2025 Resident will show evidence of adjustment to placement by having meals in dining room, attending activities of choice through the review date. Active 06/13/2025 Resident will verbalize acce ptance of placement in facility through next review Active 06/13/2025 Resident will verbalize/comm unicate and understanding of the discharge plan and describe the desired outcome by the review date. Active 06/13/2025 The resident will maintain t he ability to seek social contact and stimulation through the review date. Active 06/13/2025 Will be able to function at the fullest potential possible as outlined by the interdisciplinary team through the review date. Active 06/13/2025 Will be free from adverse re action of NSAID use through next review. Active 06/13/2025 Will be free from s/sx of hypothyroidism through the review date. Active 06/13/2025 Will be kept safe and comfor table but will not receive artificial resuscitation. Active 06/13/2025 Will consume at least 50% of meals and supplemen ts Active 06/13/2025 Will have minimal or no SOB through next review Active 06/13/2025 Will have minimal or no edema through next revie w. Active 06/13/2025 Will have no complications r elated to hyperthyroidism through the review date. Active 06/13/2025 Will have soft formed BM q1-3 days through next review Active 06/13/2025 Will improve current level o f function in order to return home when rehab complete. Active 06/13/2025 Will receive least dose necessary to relieve sym ptoms x's 90 days. Active 06/13/2025 Will remain free of injuries or complications related to Fx through review date. Active 06/13/2025 Immunizations Immunization Status Vaccine Details Vaccine Code CodeSystem Daniel e Notes TB 2 Step Mantoux Skin Test completed tuberculin skin test; unspecified formulation Given 0.1 ml Right Forearm intradermally Step 2 of Multi-step with next step required 98 CVX created date: 03/04/2025 consent date: 03/02/2025 administere d date: 03/08/2025 TB 2 Step Mantoux Skin Testcompletedtuberculin skin test; unspecified formulation Given 0.1 ml intradermally Step 1 of Multi-step with next step hprevpkm61MOZmfbgoux date: 03/04/2025 consent date: 03/02/2025 administered date: 03/02/2025 Mental Status Section Date Assessment Total Score Description 03/30/2025 BIMS 15 cognitively int act CAM 0 No delirium ind icated PHQ-9 00 6499ALHX19swneczuptcm zonntyCLT6Mw delirium indicatedPHQ-901minimal depression Insurance Providers Coverage Status Coverage Type Relationship to Subscriber Member Identifier Subscriber Identifier Group Identifier Payer Identifier and Other information 2025 Code: 1 Code System OID:2.16.840 .1.859643.3. 221.5 Code System Name: Source of Payment Typology ([facility]) Display: Medicare Translation: Code: [place] Code System: OID:2.16.840 .1.900767.6. 255.1336 Code System Name: Insurance Type Code ([id number]) Display Name: Medicare Part A Code: SELF Code System Name: HL7 RoleCode Code System OID:2.16.840.1 .523112.5.111 Display Name: Self [id number] Root: [id number] Payer Name: Medicare Address: [address] City: [place] State: [place] Country: [place] 2025 Code: 349 Code System OID:2.16.840 .1.301376.3. 221.5 Code System Name: Source of Payment Typology ([facility]D[employer]) Display: Other Translation: Code: C1 Code System: OID:2.16.840 .1.009846.6. 255.1336 Code System Name: Insurance Type Code ([id number]) Display Name: Commercial Insurance Code: SELF Code System Name: HL7 RoleCode Code System OID:2.16.840.1 .907954.5.111 Display Name: Self [id number] Root: [id number] Payer Name: [facility] Address: [address] City: [place] State: [place] Country: [facility] Plan of Treatment Section Interventions Intervention Code Code System Display Name Proposed D ate Problems Problem # Description Date of onset Resolved Date Code CodeSystem Concern Status 1 ANXIETY DISORDER, UNSPECIFIED 02/29/[address] active 2 ARTHRODESIS STATUS 02/29/[address] active 3 BRADYCARDIA, UNSPECIFIED 02/29/[address] active 4 CEREBROVASCULAR DISEASE, UNSPECIFIED 02/29/[address] active 5 DISPLACED AVULSION FRACTURE OF RIGHT ISCHIUM, SUBSEQUENT ENCOUNTER FOR FRACTURE WITH ROUTINE HEALING 02/29/[address] active 6 DRUG INDUCED SUBACUTE DYSKINESIA 02/29/[address] active 7 ESSENTIAL (PRIMARY) HYPERTENSION 02/29/[address] active 8 ESSENTIAL TREMOR 02/29/[address] active 9 HISTORY OF FALLING 02/29/[address] active 10 HYPERPARATHYROIDIS M, UNSPECIFIED 02/29/[address] active 11 CLIENT DEVELOPMENT DIRECTOR (CURRENT) USE OF ANTITHROMBOTICS/AN TIPLATELETS 02/29/[address] active 12 MIGRAINE, UNSPECIFIED, NOT INTRACTABLE, WITHOUT STATUS MIGRAINOSUS 02/29/[address] active 13 MUSCLE WEAKNESS (GENERALIZED) 02/29/[address] active 14 NEED FOR ASSISTANCE WITH PERSONAL CARE 02/29/[address] active 15 NONRHEUMATIC MITRAL (VALVE) PROLAPSE 02/29/[address] active 16 OTHER SPECIFIED DISORDERS OF BONE DENSITY AND STRUCTURE, MULTIPLE SITES 02/29/[address] active 17 PAIN IN RIGHT HIP 02/29/[address] active 18 PAROXYSMAL ATRIAL FIBRILLATION 02/29/[address] active 19 PERSONAL HISTORY OF (HEALED) TRAUMATIC FRACTURE 02/29/[address] active 20 PERSONAL HISTORY OF TRANSIENT ISCHEMIC ATTACK (TIA), AND CEREBRAL INFARCTION WITHOUT RESIDUAL DEFICITS 02/29/[address] active 21 POSTPROCEDURAL HYPOTHYROIDISM 02/29/[address] active 22 PRESENCE OF CARDIAC PACEMAKER 02/29/[address] active 23 SICK SINUS SYNDROME 02/29/[address] active 24 THROMBOCYTOPENIA, UNSPECIFIED 02/29/[address] active 25 UNSPECIFIED FRACTURE OF RIGHT PUBIS, SUBSEQUENT ENCOUNTER FOR FRACTURE WITH ROUTINE HEALING 02/29/[address] active 26 UNSPECIFIED OSTEOARTHRITIS, UNSPECIFIED SITE 02/29/[address] active Reason for Referral No Reasons for Referral Entered Social History Social History Observation Description Start Date End Date Code Code System Current Smoking Status Tobacco smoking consumption unknown 976842448 SNOMED CT Sex Assigned At Female 1940 95764-1 [facility] Gender Identity Sexual Orientation Vital Signs Code Code System Vitals Name Values and Units Timing Information 53324-7 LOINC Pain Level Value=4.0 03/30/2025 9279-1 LOINC Respiratory Rate Value=18.0 Units=/m in 03/29/2025 8462-4 LOINC Blood Pressure-Diastolic Value=74 Un its=mmHg 03/29/2025 8480-6 [facility] Blood Pressure-Systolic Jcxdf=127 Un its=mmHg 03/29/2025 8310-5 [facility] Body Temperature Value=97.9 Units= F 03/29/2025 8867-4 [facility] Heart rate Value=62.0 Units=/min 46441-5 [facility] O2 % BldC Oximetry Jlitp=111.0 Units =% 03/29/2025 11994-8 [facility] Weight Unbgo=104.0 Units=Lbs 8302-2 [facility] Height Value=61.0 Units=Inches 03/01/2025
--- OUTSIDE RECORDS SUMMARY | 2025-05-26 14:39 | XMS_ITS | Clinical Summary ---
Author Organization [facility] Address [address], [address] [place] [address] Care Team Providers Care Systems Auditor Name Role Phone Yasmin Ríos MD Primary Care Provider [phone] Allergies Active AllergyReactionsCriticalityNoted DateCommentsSulfa Qgwdnijdhck67/06/2022 Medications MedicationSigDispense QuantityRefillsLast FilledStart DateEnd DateStatus clonazePAM (KLONOPIN) 0.5 MG tablet Take 0.25 mg by mouth 3 times daily as needed.Active liothyronine (CYTOMEL) 5 MCG tablet Take 5 mcg by mouth dailyActive metoprolol tartrate (LOPRESSOR) 25 MG tablet Take 25 mg by mouth 2 times dailyActive levothyroxine (SYNTHROID) 50 MCG tablet Take 50 mcg by mouth DailyActive spironolactone (ALDACTONE) 25 MG tablet Take 25 mg by mouth dailyActive ipratropium (ATROVENT) 0.06 % nasal spray 2 sprays by Each Nostril route 4 times dailyActive clopidogrel (PLAVIX) 75 MG tablet Take 1 tablet by mouth daily Hold plavix x 2 weeks . Follow up with primary providers 30 tablet ctive Active Problems ProblemNoted DateDiagnosed DateSubdural ncykrzzb67/06/2022 Social History Tobacco UseTypesPacks/DayYears UsedDateSmoking Tobacco: FormerCigarettes Smokeless Tobacco: Never Tobacco Cessation:Counseling Given: Yes Comments:Smoker when she was 17 years old to 23 years old Alcohol UseStandard Drinks/WeekCommentsYes1 (1 standard drink = 0.6 oz pure alcohol)one glass of wine every 4 months - socialCommentsUnknownSex and Gender InformationValueDate RecordedSex Assigned at PfuzwQlpifh34/14/2022 8:36 AM ESTLegal QkoXkcpri73/10/2013 1:42 PM ESTGender IdentityNot on fileSexual WrmtzptfkjqPetylvde77/14/2022 8:36 AM EST Last Filed Vital Signs Vital SignReadingTime TakenCommentsBlood Juclwxpp800/7404/15/2022 12:00 PM EST Mfquy490804/15/2022 12:00 PM LRMIcafrntkjao61.8 ??C (98.2 ??F)04/15/2022 12:00 PM ESTRespiratory Hqaq144606/15/2021 4:15 AM ESTOxygen Hbbdjscktw04%04/15/2022 12:00 PM ESTInhaled Oxygen Concentration--Mmrvgj57 kg (114 lb 10.2 oz)04/14/2022 11:30 PM CNEFivpca826.9 cm (5' 1 )04/14/2022 11:30 PM ESTBody Mass Index21.66 04/14/2022 11:30 PM EST Plan of Treatment Health MaintenanceDue DateLast DoneCommentsDepression Edvchw0202/22/1953 DTaP/Tdap/Td vaccine (1 - Tdap)02/23/1960Pneumococcal 50+ years Vaccine (1 of 1 - PCV)1991Shingles vaccine (1 of 2)1991DEXA (modify frequency per FRAX score)02/23/1996Respiratory Syncytial Virus (RSV) or age 60 yrs+ (1 - 1-dose 75+ series)02/23/2016Annual Wellness Visit (Medicare)05/05/2023Flu vaccine (#1)01/07/2025OVID-19 Vaccine ( - season)2025Hepatitis A vaccineAged OutNo longer eligible based on patient's age to complete this topic Hepatitis B vaccineAged OutNo longer eligible based on patient's age to complete this topicHib vaccineAged OutNo longer eligible based on patient's age to complete this topicMeningococcal (ACWY) vaccineAged OutNo longer eligible based on patient's age to complete this topicMeningococcal B vaccineAged OutNo longer eligible based on patient's age to complete this topicPolio vaccineAged OutNo longer eligible based on patient's age to complete this topic Insurance * Guarantor: Ayana Alves TypeRelation to PatientDate of BirthPhone Billing AddressPersonal/FmghopUipp1940 [address] [place] [id number] * Guarantor: Ayana Alves TypeRelation to PatientDate of BirthPhone Billing AddressPersonal/NopkxlHoao1940 [address] [address] Advance Directives * Full Code (Latest Code Status on File) Date ActivatedDate RbwzwrtbyhlJbwhbfmi86/6/2022 8:43 PM04/15/2022 6:48 PM NameRelationshipHealthcare Agent RelationshipCommunicationHeather PocockChild Primary Decision Maker* Care Teams Team MemberRelationshipSpecialtyStart DateEnd Date Yasmin Ríos MD [address] [place] [id number] PCP - GeneralFamily Aftyxysj25/6/22
--- OUTSIDE RECORDS SUMMARY | 2025-05-26 14:39 | XMS_ITS | Clinical Summary ---
Author Organization [facility] Address [address] [place] [id number] Care Team Providers Care Freight Manager Name Role Phone Yasmin Ríos MD Primary Care Provider [phone] Kwesi Tilley MD, Uriel Maynardford Unavailable Allergies Active AllergyReactionsCriticalityNoted DateCommentsSulfa (Sulfonamide Antibiotics)Rash04/18/2014 Medications MedicationSigDispense QuantityRefillsLast FilledStart DateEnd DateStatus ALPRAZolam (XANAX) 0.25 mg tablet Take 0.25 mg by mouth three times daily.Active warfarin (COUMADIN) 10 mg tablet 10mg alternating with 15mg eaquobk8911/11/2019Active levothyroxine (LEVO-T) 50 mcg tablet Take 50 mcg by mouth daily before breakfast.Active metoprolol tartrate, short acting, (LOPRESSOR) 25 mg tablet Take 12.5 mg by mouth twice daily.10/07/2018Active aspirin, enteric coated (ASPIRIN, ENTERIC COATED) 81 mg EC tablet Take 81 mg by mouth once daily.Active oancjek-vliojzhoe-hjstavs D3 500 mg(1,250mg) -200 unit per tablet Take 2 tablets by mouth twice daily.Active donepezil (ARICEPT) 10 mg tablet Take 10 mg by mouth once daily.10/18/2019Active ipratropium bromide (ATROVENT) 42 mcg (0.06 %) nasal spray Use 2 Sprays in the nose once daily.Active OTC PRODUCT Kenzen BDZ Support Strength and Density 2 tablets once a day at bedtimeActive OTC PRODUCT 1 tablet three times daily. StrophantilActive spironolactone (ALDACTONE) 25 mg tablet Take 25 mg by mouth once daily.11/17/2019Active pantoprazole DR (PROTONIX) 40 mg tablet Take 40 mg by mouth once daily.Active ferrous sulfate 325 mg (65 mg iron) tablet Take 325 mg by mouth twice daily.Active bisacodyl EC (DULCOLAX) 5 mg EC tablet as directed.01/13/2020Active clonazePAM (KLONOPIN) 0.5 mg tablet Take 0.5 mg by mouth twice daily as needed.01/24/2020Active Active Problems ProblemNoted DateDiagnosed DateIron deficiency anemia due to chronic blood loss 01/13/2020S/P mitral valve nnsnue9411/18/2019S/P tricuspid valve lndxom5511/18/2019 Fibrillation, etggbo9811/18/2019History of TIA (transient ischemic attack) 11/18/2019Warfarin owghinjcipemuos53/11/2020 Family History Medical HistoryRelationCommentsStrokeMotherRelationStatusCommentsMother Social History Tobacco UseTypesPacks/DayYears UsedDateSmoking Tobacco: XzorbbKccahqxzpj1Igjl: 06/09/1947Smokeless Tobacco: NeverAlcohol UseStandard Drinks/WeekCommentsYes1 (1 standard drink = 0.6 oz pure alcohol)AUDIT-CAnswerDate RecordedQ1: How often do you have a drink containing alcohol?Monthly or less01/12/2020Q2: How many drinks containing alcohol do you have on a typical day when you are drinking?1 or 2 01/12/2020Q3: How often do you have six or more drinks on one occasion?Never 01/12/2020PHQ-2AnswerDate RecordedPHQ-2 fslrt638Area Deprivation Index AnswerDate RecordedNational Score (1-100), lower number is lower riskNot on file 05/16/2020State Score (1-10), lower number is lower riskNot on file05/16/2020 Data from: https://www.neighborhoodatlas.medicine.[facility].edu/. Last address used for calculationNot on file05/16/2020CommentsNoSex and Gender Information ValueDate RecordedSex Assigned at HodekVwgcqo16/23/2020 7:28 AM ESTLegal Sex Gnqcnl3503/30/2014 3:32 PM EDTGender OwgyomlzKpechp28/23/2020 7:29 AM ESTSexual JksiesdfkapCngjizas60/23/2020 7:28 AM EST Last Filed Vital Signs Vital SignReadingTime TakenCommentsBlood Mjqboixr749/7105/03/2020 2:45 PM EST Deluc533305/03/2020 2:45 PM TRKXyrolqnrlfr88.8 ??C (98.3 ??F)05/03/2020 2:45 PM ESTRespiratory Gjpv566407/03/2019 2:45 PM ESTOxygen Nyjmxweaeu06%05/03/2020 2:45 PM ESTInhaled Oxygen Concentration--Iqgspl31.6 kg (124 lb 12.8 oz)05/03/2020 2:45 PM RKPQbaoxc992.9 cm (5' 0.98 )05/03/2020 2:45 PM ESTBody Mass Index23.59 05/03/2020 2:45 PM EST Plan of Treatment Health MaintenanceDue DateLast DoneCommentsAnxiety Woutqtuzi02/16/1959Depression Gzmkzkyaz64/16/1959DTaP,Tdap,Td Vaccine (1 - Tdap)02/23/1960Pneumococcal Vaccine: 50+ (1 of 1 - PCV)1991Shingrix Vaccine (1 of 2)1991Bone Density Knatabhxk80/16/2006RSV Vaccine (1 - 1-dose 75+ series)02/23/2016Diabetes Loxhmpuhi76, 02/09/2020, 01/12/2020, Additional history exists Advance Directive Ecrnheewwc56/01/2025Covid-19 Vaccine (1 - season) 2025Influenza Vaccine (#1)4351FyfcpbfhoiuYwzhvkcubhxg78/12/2020 Colorectal Cancer ScreeningDiscontinuedCT ColonographyDiscontinuedCologuard (FIT-DNA)DiscontinuedFecal Occult BloodDiscontinuedSigmoidoscopyDiscontinued Medical Devices ImplantedTypeAreaManufacturerDevice IdentifierShelf Expiration DateModel / Serial / LotPacemaker-[id number] [id number] Implanted:11/04/2018 (Quantity not on file)PacemakerMEDTRONIC [id number] Meghan PEÑALOZA / [id number] / Procedures Procedure NamePriorityDate/TimeAssociated DiagnosisCommentsCOMPREHENSIVE METABOLIC FXVAVXaisgro00/25/2020 2:33 PM EST Iron deficiency anemia due to chronic blood loss from Last 3 Months or Most Recently Relevant to Health Maintenance Results * (ABNORMAL) COMP METABOLIC PANEL (05/03/2020 2:33 PM EST)ComponentValueRef RangeTest MethodAnalysis TimePerformed AtPathologist SignatureProtein, Total 7.16.3 - 8.0 g/dL05/03/2020 3:09 PM [facility] CareAlbumin4.93.9 - 4.9 g/dL05/03/2020 3:09 PM [facility] BjlvFnweylt20.8(H)8.5 - 10.2 mg/dL05/03/2020 3:09 PM [facility] CareBilirubin, Total0.20.2 - 1.3 mg/dL05/03/2020 3:09 PM [facility] CareAlkaline Ubkybrfdtsp4720 - 123 U/L107/03/2019 3:09 PM [facility] KefsCQI7234 - 35 U/L107/03/2019 3:09 PM [facility] TdelQswzaza298 (H)74 - 99 mg/dL05/03/2020 3:09 PM [facility] Comment: The [place] [employer] (ADA) provides guidance for cutoff [...] Standards of Medical Care in Diabetes 2016, [place] [employer]. Diabetes Care. 2016.39(Suppl 1). BUN25(H)7 - 21 mg/dL05/03/2020 3:09 PM [facility] CareCreatinine0.750.58 - 0.96 mg/dL05/03/2020 3:09 PM [facility] WtjgJpufrb928057 - 144 mmol/L107/03/2019 3:09 PM [facility] CarePotassium4.13.7 - 5.1 mmol/L107/03/2019 3:09 PM EST [facility] DngsRqogotbs26940 - 105 mmol/L107/03/2019 3:09 PM [facility] YzjvEO20956 - 30 mmol/L107/03/2019 3:09 PM [facility] CareAnion Gap8(L)9 - 18 mmol/L 05/03/2020 3:09 PM [facility] VbewRIJ089 - 38 U/L 05/03/2020 3:09 PM [facility] CareeGFR->6005/03/2020 3:09 PM [facility] CareeGFR- All Other Races>60.05/03/2020 3:09 PM [facility] CareComment: eGFR (Estimated GFR) Units of measure: mL/min/1.73 [...] eGFR may not accurately reflect actual GFR. Specimen (Source)Anatomical Location / LateralityCollection Method / Volume Collection TimeReceived TimeBlood specimen (specimen)BLOOD SPECIMEN / Unknown 05/03/2020 2:33 PM EST05/03/2020 2:35 PM EST Narrative Authorizing ProviderResult TypeResult StatusLloyd Aquino MDLABORATORYFinal ResultPerforming OrganizationAddressCity/State/ZIP CodePhone Number [address] [address] [facility] [address] [place] [address] from Last 3 Months or Most Recently Relevant to Health Maintenance Insurance Care Teams Team MemberRelationshipSpecialtyStart DateEnd Date Yasmin Ríos MD [address] [place] [id number] PCP - GeneralFamily Mpbpfobk99/22/14 Uriel Orosco Jr., MD [address] [facility] [facility] [place] [address] Cardiology11/18/19
--- OUTSIDE RECORDS SUMMARY | 2025-05-26 14:39 | XMS_ITS | Clinical Summary ---
Author Organization [employer] tem Address [id number] [address] [place] [address] Care Team Providers Care Academic Coordinator Name Role Phone Amrita Hooks MD Primary Care Provider [phone] Allergies Active AllergyReactionsCriticalityNoted OiqpCjeileqyJqkjinoiq71/17/2022 Other reaction(s): Unknown Other05/02/2023 opioids MfmrsdjhpiplOym70/21/2020Sulfa (Sulfonamide Antibiotics)FmzuBuy5204/18/2014 hives Medications MedicationSigDispense QuantityRefillsLast FilledStart DateEnd DateStatus spironolactone (ALDACTONE) 25 mg tablet Take 1 tablet (25 mg total) by mouth in the morning.Active Lactobacillus acidophilus (PROBIOTIC ORAL) Take by mouth.Active liothyronine (CYTOMEL) 5 MCG tablet Indications:Postprocedural hypothyroidism,Postoperative hypothyroidismTAKE 1 TABLET BY MOUTH EVERY DAY ON AN EMPTY STOMACH 90 tablet 5Active levothyroxine (SYNTHROID, LEVOTHROID) 50 MCG tablet Indications:Postprocedural hypothyroidism,Postoperative hypothyroidismTAKE 1 TABLET BY MOUTH EVERY DAY IN THE MORNING ON EMPTY STOMACH FOR 90 DAYS 90 tablet 5Active hydrocortisone (ANUSOL-HC) 2.5 % rectal cream Insert 1 Application into the rectum in the morning and 1 Application before bedtime. 30 g 5Active acetaminophen (TYLENOL EXTRA STRENGTH) 500 mg tablet Take 2 tablets (1,000 mg total) by mouth every 6 (six) hours as needed for pain. 30 tablet 5Active ipratropium (ATROVENT) 42 mcg (0.06 %) nasal spray Indications:Obstructive airway disease (CMS-HCC)SPRAY 1 SPRAY INTO EACH NOSTRIL IN THE MORNING 15 mL 5Active cholecalciferol, vitamin D3, 5,000 units tablet TAKE 1 TABLET BY MOUTH EVERY DAY IN THE MORNING 90 tablet 5Active clopidogreL (PLAVIX) 75 mg tablet Take 1 tablet (75 mg total) by mouth every morning. 90 tablet 5Active clonazePAM (KlonoPIN) 0.5 mg tablet Indications:Anxiety disorder, unspecifiedTAKE 1 TABLET (0.5 MG TOTAL) BY MOUTH 2 (TWO) TIMES A DAY NEEDED FOR ANXIETY. 60 tablet 5Active clopidogreL (PLAVIX) 75 mg tablet TAKE 1 TABLET BY MOUTH EVERY DAY 90 tablet 5107/02/2024Discontinued(Reorder) clonazePAM (KlonoPIN) 0.5 mg tablet Take 1 tablet (0.5 mg total) by mouth 2 (two) times a day as needed for anxiety. Discontinued Active Problems ProblemNoted DateDiagnosed DateFracture of guesvap2502/28/2025Fracture of pubis 02/28/2025quired wrgnuwahqmggsp74/20/2025Pulmonary hypertension, unspecified 07/28/2024Essential ynzxcw9107/27/2024Memory mxobsar4607/27/2024Thyroid nodule 09/16/20225513Uyqeihtfwelsfsychdf79/10/3101Asucmgnwuj34/10/2023Idiopathic stabbing koezfmda79/18/2021ubacute dyskinesia due to drug11/27/2020erebrovascular rdmjpoj8611/27/2020Other vzqzjqf3104/18/2020Abnormal involuntary pqacjlnft26/29/2020 TIA (transient ischemic attack)01/08/2019Sinus node kvfohitkwto40/10/2019 Presence of cardiac pacemaker- MDT11/16/2018Long term (current) use of kpbjshwfranzer50/31/2019Symptomatic obpmdcligar48/29/2019Paroxysmal atrial fhuiefwtnuvt45/28/6435Knlu30/26/2019Thrombocytopenic /26/2019Change in bowel fqxolm2204/27/2018HypertensionMitral valve prolapse Resolved Problems ProblemNoted DateDiagnosed DateResolved DatePubic bone lwujrrni01/19/2025 04/21/2025nemia due to other bone marrow uaztvrj29/19/84537007/28/2024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 (ventilator) zstfnr525007/28/2024Subdural /19/2025 07/28/2024Memory uziciqk49History of TIA (transient ischemic attack)Warfarin gyauovhuvqitvpd52Encounter for postoperative wound checkMitral urlmgblpymkfn10/24/2019 04/21/2025Severe mitral nuyoyzovxorjl76Diarrhea04/27/2018 04/21/2025 Encounters DateTypeDepartmentCare CwhzRkcbpmqmant08/02/2025Patient Outreach [facility] Quality - Care Coordination Team [address] [place] [address] Lindsey Littlejohn CMA 05/09/2025Refill [facility] [address] [place] [phone] Amrita Hooks MD Anxiety disorder, bexwlcqbkke24/24/2025 11:30 AM ESTOffice Visit [facility], A Department of [address] [phone] Wilmer Doe MD TIA (transient ischemic attack) (Primary Dx); Essential gfcijf2005/02/20258737Iqvctt37/14/2025Results Follow-Up [facility] [address] [place] [phone] Jero Hitchcock, Thyroid profile includes TSH FT4, T3, free, Comprehensive metabolic panel, Additional followed-up results: 1:00 PM ESTOffice Visit [facility] [address] [place] [phone] Jero Hitchcock, Medicare annual wellness visit, subsequent (Primary Dx); Hyperparathyroidism; Primary hypertension; Acquired hypothyroidism; Vitamin B12 hdhgugibnh42/13/2278Qajktu35/06/2025Telephone [facility] [address] [facility] [address] [place] [phone] Elizabeth Billings Updated Bsenza5204/12/20251120Vwhxzf06/28/2025Refill [facility] [address] [place] [phone] Deepika Najera MD 03/30/2025Telephone [facility] [address] [place] [place] [place] [address] Monie Barrett CNA Home Health Care03/01/2025Refill [facility] [address] [place] [address] [place] [address] Amrita Hooks MD Obstructive airway disease ([place])03/01/2025Telephone [facility] [address] [place] [address] [place] [address] Neeru Gresham RN 02/25/2025 9:33 AM EDT - 02/28/2025 6:45 PM EDTHospital Encounter [facility] [address] [place] [address] Sony Zeng DO Banerjee, Sunita, MD Muhammad, Ruqiyya T, MD Pubic bone fracture ([place]) (Primary Dx); Anxiety Discharge Disposition: Senior Care Facility-Medicare Cert02/25/2025Travel from Last 3 Months Immunizations No known immunizations Family History Medical HistoryRelationNameCommentsArthritisFatherBillAsthmaFatherBillClotting disorderFatherBillColon cancerFatherBillHeart attackFatherBillHyperlipidemia FatherBillHypertensionFatherBillAlcohol abuseMotherMaxineArthritisMotherMaxine DementiaMotherMaxineHypertensionMotherMaxineMental illnessMotherMaxine DEPRESSION, ANXIETYMigrainesMotherMaxineStrokeMotherMaxineUlcerative colitis MotherMaxineAnesthesia problemsNeg HxBreast cancerNeg HxRelationNameStatus CommentsFatherBillMotherMaxine Social History Tobacco UseTypesPacks/DayYears UsedDateSmoking Tobacco: NyyjejEpzjyponxk181827 - 1963Smokeless Tobacco: Never Tobacco Cessation:Counseling Given: Not Answered Alcohol UseStandard Drinks/WeekCommentsYes0 (1 standard drink = 0.6 oz pure alcohol)OccasionalAHC UtilitiesAnswerDate RecordedIn the past 12 months has the [employer], [employer], oil, or water [employer] threatened to shut off services in your home?No02/25/2025PHQ-2AnswerDate RecordedTotal Gxnah07606/21/2024PRAPARE - TransportationAnswerDate RecordedIn the past 12 months, has lack of transportation kept you from medical appointments or from getting medications?No 02/25/2025In the past 12 months, has lack of transportation kept you from meetings, work, or from getting things needed for daily living?No02/25/2025 Housing InstabilityAnswerDate RecordedAre you worried or concerned that in the next two months you may not have stable housing that you own, rent or stay in as a part of a household?No02/25/2025hildcareAnswerDate RecordedChildcareUnknown 11/05/2018EmploymentAnswerDate EzgvzozyLzbvfqfegaNefbftc70/30/2019Hunger ScreeningAnswerDate RecordedWithin the past 12 months we worried whether our food would run out before we got money to buy more.Never True05/02/2025Within the past 12 months the food we bought just didn't last and we didn't have money to get more.Never True05/02/2025Purpose - LifeAnswerDate RecordedPurpose and direction in mutrOlyfflc72/12/2021CommentsNoSex and Gender Information ValueDate RecordedSex Assigned at MhzvlBkucbj32/29/2020 4:39 PM ESTLegal Sex Wvrwua5801/12/2015 11:48 AM EDTGender WlfqzizhIyvmkp29/29/2020 4:39 PM ESTSexual HhdqtybahngFvontbnh88/29/2020 4:39 PM EST Last Filed Vital Signs Vital SignReadingTime TakenCommentsBlood Upyymhao088/7205/02/2025 11:33 AM EST Zzdcb296205/02/2025 11:33 AM YMSHamaqwfimkw64.4 ??C (97.6 ??F)04/21/2025 1:02 PM ESTRespiratory Rjjg478902/28/2025 12:03 PM EDTOxygen Mvusmetdru46%04/21/2025 1:02 PM ESTInhaled Oxygen Concentration--Hyajfo09.9 kg (125 lb 6.4 oz)05/02/2025 11:33 AM HJCLhizlx420.4 cm (5')05/02/2025 11:33 AM ESTBody Mass Index24.49 05/02/2025 11:33 AM EST Plan of Treatment DateTypeDepartmentCare Team (Latest Contact Info)Veyumavnddj52/01/2026 11:00 AM EDTOffice Visit [facility] Department of [address] [phone] Wilmer Doe MD [address] [place] [phone] 12/22/2025 3:00 PM EDTOffice Visit [facility] [address] [place] [phone] Amrita Hooks MD [address] [place] [address] Health MaintenanceDue DateLast DoneCommentsZoster (Shingles) Vaccine (1 of 2) 1991DTaP,Tdap and Td Vaccines (1 - Tdap)RSV ( or age 60+ yrs) (1 - 1-dose 75+ series)02/23/2016Influenza Jngfjbo4302/07/2025 Depression Aathzedey72Medicare Annual Wellness Visit04/21/2026 04/21/2025Tobacco Odckuypny60Fall Risk Vhfcnrsqs67/02/2026 05/10/2025 Goals GoalPatient Goal TypeAssociated ProblemsRecent ProgressPatient-Stated?Author home with friend support Myra Massey LSW Note: Evaluation of progress towards goal: under assessment Medical Devices ImplantedTypeAreaManufacturerDevice IdentifierShelf Expiration DateModel / Serial / LotRing Annuloplasty 28mm - [id number] - [id number] Implanted:Qty: 1 on 10/30/2018 [facility] RingN/A: Heart Mitral ValveMEDTRONIC [id number] / [id number] / Ring Annuloplast Contour 3d 26 - [id number] - [id number] Implanted:Qty: 1 on 10/30/2018 by [facility]Annuloplasty RingN/A: Heart Tricuspid ValveMEDTRONIC USA05/26/[id number] / [id number] / Lead Capsure Fix Novus 5076-52 - [id number] - [id number] Implanted:Qty: 1 on 11/04/2018 [facility]Implan LeadLeft: ChestMEDTRONIC USA08/31/40007876-17 / [id number] / Lead Capsure Fix Novus 5076-45 - [id number] - [id number] Implanted:Qty: 1 on 11/04/2018 [facility]Implant LeadLeft: ArterialMEDTRONIC USA//[id number] / [id number] / Pcmkr Meghan Dubon - [id number] - [id number] Implanted:Qty: 1 on 11/04/2018 by [facility]ITALPacemakerLeft: ArterialMEDTRONIC CARD RHYTHM ALFQLZD3904/05/2020W3DR01 / [id number] / Procedures Procedure NamePriorityDate/TimeAssociated DiagnosisCommentsVITAMIN X66Eedbmxh 04/21/2025 1:48 PM EST Medicare annual wellness visit, subsequent Vitamin B12 deficiency PARATHYROID HORMOME, HDKOSQVqqylhv31/13/2025 1:48 PM EST Medicare annual wellness visit, subsequent Hyperparathyroidism COMPREHENSIVE METABOLIC OHBOJJojmisd87/13/2025 1:48 PM EST Medicare annual wellness visit, subsequent Hyperparathyroidism Primary hypertension Acquired hypothyroidism T3, LNUIVmobqup00/13/2025 1:48 PM EST Medicare annual wellness visit, subsequent Acquired hypothyroidism THYROID PROFILE INCLUDES TSH RO7Nlgqzry94/13/2025 1:48 PM EST Medicare annual wellness visit, subsequent Acquired hypothyroidism VITAMIN D 25 DTEIKNYEcjeqdw15/04/2025 2:50 PM EST Vitamin D deficiency, unspecified DNR PHYSICIAN ORDER REPORT (SCANNED INTO EHR)03/08/2025 9:37 AM EDT SARS COV 2 BY NAAT/UZEHWGNTUDUDX27/22/2025 2:54 PM EDT CBC WITH AUTO MVARKIPVUZXUDhfitge18/22/2025 5:54 AM EDT XBNDNGJUAYyidfma07/22/2025 5:54 AM EDT COMPREHENSIVE METABOLIC WWLMXFetzwxq88/22/2025 5:54 AM EDT EXTRA TUBES BLUE WUWBgvtols60/21/2025 5:02 AM EDT EXTRA QATJOItoevys66/21/2025 5:02 AM EDT CBC WITH AUTO WLWUBPQMLGOPWelxjko62/21/2025 5:02 AM EDT SXWZHEQNFHppggpy13/21/2025 5:02 AM EDT COMPREHENSIVE METABOLIC BUYRSNuaivcc25/ 5:02 AM EDT CBC WITH AUTO JFACEIDLWJQPSyqnuzp81/20/2025 5:26 AM EDT GJZHHLUABFdojbmx97/20/2025 5:26 AM EDT COMPREHENSIVE METABOLIC YIIPKKkwmlvi90/20/2025 5:26 AM EDT EXTRA TUBES BLUE BSXCzldzvl00/20/2025 5:25 AM EDT EXTRA FENXTHannsmb63/20/2025 5:25 AM EDT POCT NURSING URINE MACROSCOPIC ZVRoyknja77/19/2025 1:20 PM EDT ER EXTRA URINE YHWOMTUGCK54/19/2025 1:18 PM EDT ER EXTRA URINE HDVFBLPMULA85/19/2025 1:18 PM EDT ER EXTRA YQYXRWEZM86/19/2025 1:18 PM EDT EXTRA TUBES BLUE MTNUssjhqc39/19/2025 12:21 PM EDT EXTRA MJOESLhielxs38/19/2025 12:21 PM EDT BASIC METABOLIC PRMEGGTWV73/19/2025 12:21 PM EDT CBC WITH AUTO LEPKRXYALUHTSAXH63/19/2025 12:[address] PELVIS WO CLHGNSYA34/19/2025 10:[address] LUMBAR SPINE WO LJRAHCAQ39/19/2025 10:[address] BRAIN WO HUJPYVKU69/19/2025 10:53 AM EDT XR ELBOW RT 2 XYUKHCV1702/25/2025 10:24 AM EDT from Last 3 Months Results * Thyroid profile includes TSH FT4 (04/21/2025 1:48 PM EST)ComponentValueRef RangeTest MethodAnalysis TimePerformed AtPathologist SignatureFREE T40.870.61 - 1.60 ng/dL04/21/2025 6:55 PM [facility] LABORATORYTSH2.92 0.49 - 4.67 uIU/mL04/21/2025 6:55 PM [facility] Specimen (Source)Anatomical Location / LateralityCollection Method / Volume Collection TimeReceived TimeBloodVenous blood / Fswbcfu6804/21/2025 1:48 PM EST 04/21/2025 1:48 PM EST Narrative Authorizing ProviderResult TypeResult StatusMichael D Badik DOLAB BLOOD ORDERABLESFinal ResultPerforming OrganizationAddressty/State/ZIP CodePhone Number [facility] [address] [place] [address], * Parathyroid Hormone, intact (04/21/2025 1:48 PM EST)ComponentValueRef Range Test MethodAnalysis TimePerformed AtPathologist SignaturePTH RRKWJH6736 - 88 pg/mL04/21/2025 6:59 PM [facility] LABORATORYSpecimen (Source)Anatomical Location / LateralityCollection Method / VolumeCollection TimeReceived TimeBloodVenous blood / Ulrbxmf3404/21/2025 1:48 PM EST04/21/2025 1:48 PM EST Narrative Authorizing ProviderResult TypeResult StatusMichael D Badik DOLAB BLOOD ORDERABLESFinal ResultPerforming OrganizationAddressCity/State/ZIP CodePhone Number [facility] [address] [place] [address], * T3, free (04/21/2025 1:48 PM EST)ComponentValueRef RangeTest MethodAnalysis TimePerformed AtPathologist SignatureFREE T33.002.50 - 3.90 pg/mL04/21/2025 6:54 PM [facility] LABORATORYSpecimen (Source)Anatomical Location / LateralityCollection Method / VolumeCollection TimeReceived Time BloodVenous blood / Ggcunhc1404/21/2025 1:48 PM EST04/21/2025 1:48 PM EST Narrative Authorizing ProviderResult TypeResult StatusMichael D Badik DOLAB BLOOD ORDERABLESFinal ResultPerforming OrganizationAddressCity/State/ZIP CodePhone Number [facility] [address] [place] [address], * Vitamin B12 (04/21/2025 1:48 PM EST)ComponentValueRef RangeTest MethodAnalysis TimePerformed AtPathologist SignatureVITAMIN [id number] - 914 pg/mL04/21/2025 7:04 PM [facility] LABORATORYSpecimen (Source)Anatomical Location / LateralityCollection Method / VolumeCollection TimeReceived Time BloodVenous blood / Ftobjfw2304/21/2025 1:48 PM EST04/21/2025 1:48 PM EST Narrative Authorizing ProviderResult TypeResult StatusMichael D Badik DOLAB BLOOD ORDERABLESFinal ResultPerforming OrganizationAddressCity/State/ZIP CodePhone Number [facility] [address] [place] [address], * (ABNORMAL) Comprehensive metabolic panel (04/21/2025 1:48 PM EST) Only the most recent of4 resultswithin the time period is included. ComponentValueRef RangeTest MethodAnalysis TimePerformed AtPathologist Signature PJOVJG716916 - 146 mmol/L106/21/2024 6:41 PM [facility] LABORATORYPOTASSIUM4.63.5 - 5.0 mmol/L106/21/2024 6:41 PM [facility] VXJVEGBZBZPRJWZMCI83254 - 109 mmol/L106/21/2024 6:41 PM [facility] LABORATORYCARBON HQOHDSH8801 - 32 mmol/L106/21/2024 6:41 PM [facility] LABORATORYANION GAP85 - 15 mmol/L106/21/2024 6:41 PM [facility] LABORATORYBLOOD UREA COBFWDWF590 - 27 mg/dL04/21/2025 6:41 PM [facility] LABORATORYCREATININE0.860.40 - 1.00 mg/dL04/21/2025 6:41 PM [facility] LABORATORYComment:METHOD TRACEABLE TO IDNH MLCKKRIBCHWOFJB2896 - 99 mg/dL04/21/2025 6:41 PM [facility] AVKKWGTJZZVHYZIDP77.6(H)8.5 - 10.5 mg/dL04/21/2025 6:41 PM [facility] LABORATORYTOTAL PROTEIN7.46.0 - 8.0 g/dL04/21/2025 6:41 PM [facility] LABORATORYALBUMIN4.63.2 - 5.3 g/dL04/21/2025 6:41 PM [facility] LABORATORYALKALINE JVLBDMDFYOP97025 - 130 U/L106/21/2024 6:41 PM [facility] EWIGGXWBMFQEX11<=41 U/L106/21/2024 6:41 PM [facility] BXQIHOABSSTMC38<=31 U/L106/21/2024 6:41 PM [facility] LABORATORYBILIRUBIN,TOTAL0.40.3 - 1.2 mg/dL04/21/2025 6:41 PM [facility] LABORATORYEGFR Non-Race Gupczlive28>=60 ml/min/1.73sq.m106/21/2024 6:41 PM [facility] LABORATORYComment: Reported eGFR is based on the CKD-EPI 2020 equation that does not use a race coefficient. Specimen (Source)Anatomical Location / LateralityCollection Method / Volume Collection TimeReceived TimeBloodVenous blood / Iynimez7404/21/2025 1:48 PM EST 04/21/2025 1:48 PM EST Narrative Authorizing ProviderResult TypeResult StatusMichaebo [place] BLOOD ORDERABLESFinal ResultPerforming OrganizationAddressCity/State/ZIP CodePhone Number [facility] [address] [place] [address], * Vitamin D 25 hydroxy (04/12/2025 2:50 PM EST)ComponentValueRef RangeTest MethodAnalysis TimePerformed AtPathologist SignatureVITAMIN D 25 HYD TOT61.8 30.0 - 100.0 ng/mL04/12/2025 6:53 PM [facility] Specimen (Source)Anatomical Location / LateralityCollection Method / Volume Collection TimeReceived TimeBloodVenous blood / UnknownVenipuncture / Unknown 04/12/2025 2:50 PM EST04/12/2025 2:54 PM EST Narrative [facility] - 04/12/2025 6:53 PM EST Vitamin D status 25 [place] Vitamin D Deficiency <20 ng/mL Insufficiency ? 20-29 ng/mL Sufficiency ? 30-100 ng/mL Toxicity >100 ng/mL NOTE: A pediatric reference range has not been established by the vegetable farmer of this kit. The [place] [employer] recommends a Vitamin D level of = or >20ng/mL in infants and children. Authorizing ProviderResult TypeResult StatusUriel Orosco Jr., LAB BLOOD ORDERABLESFinal ResultPerforming OrganizationAddressCity/State/ZIP CodePhone Number [facility] [address] [place] [address], * DNR Physician Order Report (Scanned Into EHR) (03/08/2025 9:37 AM EDT) Narrative 03/08/2025 9:37 AM EDT Ordered by an unspecified provider. Authorizing ProviderResult TypeResult StatusNot In System Ref ProvOUTPATIENT REFERRAL ORDERABLESFinal Result * Covid-19 Testing for SNF Placement #1 (02/28/2025 2:54 PM EDT)ComponentValue Ref RangeTest MethodAnalysis TimePerformed AtPathologist SignatureSARS COV 2 Not DetectedNot Sacvbrvj63/22/2025 3:32 PM EDTPROMEDKAISER FOUNDATION HOSPITALpecimen (Source)Anatomical Location / LateralityCollection Method / VolumeCollection TimeReceived TimeSwabNasopharyngeal structure / Unknown 02/28/2025 2:54 PM EDT02/28/2025 2:59 PM EDT Narrative [facility] - 02/28/2025 3:32 PM EDT The Xpert Xpress SARS-CoV-2 Plus test is a real-time RT-PCR test intended for the qualitative detection of nucleic acid from the SARS-CoV-2 from individuals suspected of COVID-19 by their healthcare provider. This test has not been validated in asymptomatic patients. The Xpert Xpress SARS-CoV-2 Plus test is intended for use by qualified and trained operators who are performing tests using either [employer] or [employer] systems and is limited to laboratories that [...] specimen repeat. Fact Sheet for Healthcare Providers: ? https://www.fda.gov/media/636091/download ? Fact Sheet for Patients: ? https://www.[employer].gov/media/061184/download Authorizing ProviderResult TypeResult StatusDon Arreola APRN-CNPMICROBIOLOGY - GENERAL ORDERABLESFinal ResultPerforming OrganizationAddressCity/State/ZIP CodePhone Number [facility] [address] [place] [address], * (ABNORMAL) CBC auto differential (02/28/2025 5:54 AM EDT) Only the most recent of4 resultswithin the time period is included. ComponentValueRef RangeTest MethodAnalysis TimePerformed AtPathologist Signature WBC4.04 - 11 x10E9/L02/28/2025 6:25 AM EDOHIOHEALTH RIVERSIDE METHODIST HOSPITALRBC Count4.093.8 - 5.2 X10E12/L02/28/2025 6:25 AM [facility]HABIL[facility]ATIONHemoglobin12.011.7 - 15.5 g/dL02/28/2025 6:25 AM EDTPUNIVERSITY HOSPITALS LAKE WEST MEDICAL CENTERHematocrit34.9(L)35 - 47 %02/28/2025 6:25 AM EDOHIOHEALTH RIVERSIDE METHODIST HOSPITALMCV8580 - 100 fL02/28/2025 6:25 AM EDTPUNIVERSITY HOSPITALS LAKE WEST MEDICAL CENTERMCH29.427 - 34 pg02/28/2025 6:25 AM EDOHIOHEALTH RIVERSIDE METHODIST HOSPITALMCHC34.432 - 36 g/dL02/28/2025 6:25 AM EDTPUNIVERSITY HOSPITALS LAKE WEST MEDICAL CENTERRDW13.511.5 - 15 %02/28/2025 6:25 AM [facility] REHABILITATIONPlatelet Nexsn223(L)150 - 450 X10E9/L02/28/2025 6:25 AM EDT [facility]ITALMPV8.37 - 12 fL02/28/2025 6:25 AM EDT [facility]ITALNeutrophils %62.1%02/28/2025 6:25 AM EDT [facility]ITALLymphocytes %22.0%02/28/2025 6:25 AM EDT [facility]ITALMonocytes %9.2%02/28/2025 6:25 AM EDT [facility]ITALEosinophils %6.3%02/28/2025 6:25 AM EDT [facility]ITALBasophils %0.4%02/28/2025 6:25 AM EDT [facility]ITALNeutrophils Absolute (A)2.51.5 - 6.6 10*3/uL 02/28/2025 6:25 AM EDTPUNIVERSITY HOSPITALS LAKE WEST MEDICAL CENTERLymphocytes Absolute0.9 (L)1.0 - 3.5 10*3/uL02/28/2025 6:25 AM [facility] Monocytes Absolute0.40.0 - 0.9 10*3/uL02/28/2025 6:25 AM [facility] REHABILITATIONEosinophils Absolute0.30.0 - 0.4 10*3/uL02/28/2025 6:25 AM EDT [facility]ITALBasophils Absolute0.00.0 - 0.2 10*3/uL 02/28/2025 6:25 AM [facility] REHABILITATIONDifferential Type AUTOMATED CKGSSHFQGVGQ48/22/2025 6:25 AM [facility] Specimen (Source)Anatomical Location / LateralityCollection Method / Volume Collection TimeReceived TimeBloodVenous blood / UnknownVenipuncture / Unknown 02/28/2025 5:54 AM EDT02/28/2025 6:07 AM EDT Narrative Authorizing ProviderResult TypeResult StatusTaeler Arsenio CRYSTAL GROWER-CNPLAB BLOOD ORDERABLESFinal ResultPerforming OrganizationAddressCity/State/ZIP CodePhone Number [facility] [address] [place] [address], * Magnesium (02/28/2025 5:54 AM EDT) Only the most recent of3 resultswithin the time period is included. ComponentValueRef RangeTest MethodAnalysis TimePerformed AtPathologist Signature MAGNESIUM2.01.8 - 2.6 mg/dL02/28/2025 6:46 AM [facility] ([facility])Anatomical Location / LateralityCollection Method / VolumeCollection TimeReceived TimeBloodVenous blood / UnknownVenipuncture / Bwfride0602/28/2025 5:54 AM EDT02/28/2025 6:07 AM EDT Narrative Authorizing ProviderResult TypeResult StatusTaallan STODDARDWHITINSVILLE HOSPITALLAB BLOOD ORDERABLESFinal ResultPerforming OrganizationAddressCity/State/ZIP CodePhone Number [address] [place] [address], [place] * Light Blue Top (02/27/2025 5:02 AM EDT) Only the most recent of3 resultswithin the time period is included. ComponentValueRef RangeTest MethodAnalysis TimePerformed AtPathologist Signature Extra TubeAuto Wzcgsyxo27/21/2025 7:01 AM [facility] Specimen (Source)Anatomical Location / LateralityCollection Method / Volume Collection TimeReceived TimeBloodVenous blood / Abxovsw7102/27/2025 5:02 AM EDT 02/27/2025 6:10 AM EDT Narrative Authorizing ProviderResult TypeResult StatusSunijoselyn Marquez [facility] BLOOD ORDERABLESFinal ResultPerforming OrganizationAddressCity/State/ZIP CodePhone Number [address] [place] [address], [place] * POCT Nursing Urine Macroscopic UA (02/25/2025 1:20 PM EDT)ComponentValueRef RangeTest MethodAnalysis TimePerformed AtPathologist SignaturePOC Urine Specific Gravity1.0101.010, 1.015, 1.020, 1.3463102/25/2025 1:[facility] Urine Leukocyte EsteraseNegativeNegative 02/25/2025 1:23 PM [facility] Urine Nitrite UrcptswqTtvgitkg64/19/2025 1:23 PM [facility] Urine pH7.05.0, 6.0, 6.5, 7.0, 7.5, 8.0, 8.5, 5.509 1:23 PM EDT [facility] Urine QvqbkymCtoccqlzKaaqeifl10/19/2025 1:23 [address] [facility] Urine GlucoseNegative Suuhsrao44/19/2025 1:23 [address] [facility] Urine DgmgjvlLxteqixnGtrfaqhh45/19/2025 1:23 [address] [facility] Urine Urobilinogen0.2 E.U./dL02/25/2025 1:23 [address] [facility] Urine TbrgjexqhYmzskbpaYntkwrah24/19/2025 1:23 [address] [facility] Urine Blood/HGBNegativeNegative 02/25/2025 1:23 PM [facility] (Source) Anatomical Location / LateralityCollection Method / VolumeCollection Time Received KrxoZfipt03/19/2025 1:20 PM EDT02/25/2025 1:23 PM EDT Narrative Authorizing ProviderResult TypeResult StatusMaxgina Zeng DOPOINT OF CARE TEST ORDERABLESFinal ResultPerforming OrganizationAddressCity/State/ZIP Code Phone Number [address] [place] [address], [place] * Extra Urine [place] (02/25/2025 1:18 PM EDT)ComponentValueRef RangeTest Method Analysis TimePerformed AtPathologist SignatureExtra TubeAuto Resulted 02/25/2025 3:01 PM [facility] (Source) Anatomical Location / LateralityCollection Method / VolumeCollection Time Received TimeUrineUrine specimen collection, clean catch / Kmsqdpp0302/25/2025 1:18 PM EDT02/25/2025 1:45 PM EDT Narrative Authorizing ProviderResult TypeResult StatusMaxgina Zeng DOURINE ORDERABLESFinal ResultPerforming OrganizationAddressty/[facility] CodePhone Number [address] [address], [place] * Extra Urine Culture (02/25/2025 1:18 PM EDT)ComponentValueRef RangeTest Method Analysis TimePerformed AtPathologist SignatureExtra TubeAuto Resulted 02/25/2025 3:01 PM EDTPOUR L[facility]Y [facility]CY [facility]ITALpecimen (Source) Anatomical Location / LateralityCollection Method / VolumeCollection Time Received TimeUrineUrine specimen collection, clean catch / Tlraurt3502/25/2025 1:18 PM EDT02/25/2025 1:45 PM EDT Narrative Authorizing ProviderResult TypeResult StatusMaxwell J Buchwalder DOURINE ORDERABLESFinal ResultPerforming OrganizationAddressCity/State/ZIP CodePhone Number [address] [place] [address], [place] * Extra Urine (02/25/2025 1:18 PM EDT)ComponentValueRef RangeTest MethodAnalysis TimePerformed AtPathologist SignatureExtra TubeAuto Uywouzot31/19/2025 3:01 PM EDBARBERTON CITIZ[facility]OSPITALpecphoebe [facility] (Source)Anatomical Location / LateralityCollection Method / VolumeCollection TimeReceived TimeUrineUrine specimen collection, clean catch / Czypeof3902/25/2025 1:18 PM EDT02/25/2025 1:45 PM EDT Narrative Authorizing ProviderResult TypeResult StatusMaxwell J Buchwalder DOURINE ORDERABLESFinal ResultPerforming OrganizationAddressty/State/ZIP CodePhone Number [address] [place] [address], [place] * (ABNORMAL) Basic Metabolic Panel (02/25/2025 12:21 PM EDT)ComponentValueRef RangeTest MethodAnalysis TimePerformed AtPathologist [id number] - 146 mmol/L02/25/2025 1:00 PM EDTPUNIVERSITY HOSPITALS LAKE WEST MEDICAL CENTERPOTASSIUM 3.83.5 - 5.0 mmol/L02/25/2025 1:00 PM [facility]OH[facility] [id number] - 109 mmol/L02/25/2025 1:00 PM EDTPUNIVERSITY HOSPITALS LA[facility]ST MEDICAL CENTERCARBON KTMPEDV2782 - 32 mmol/L02/25/2025 1:00 PM EDOHIOHEALTH RIVERSIDE METHODIST HOSPITALANION GAP85 - 15 mmol/L02/25/2025 1:00 PM [facility]IL[facility]ATIONBLOOD UREA XHLKYVGX058 - 27 mg/dL02/25/2025 1:00 PM [facility] REH[facility]ATIONCREATININE0.850.40 - 1.00 mg/dL 02/25/2025 1:00 PM [facility]ATIONComment:METHOD TRACEABLE TO IDMS YFVMYEVLASNPSOC896(H)65 - 99 mg/dL02/25/2025 1:00 PM EDT [facility]ITALCALCIUM10.08.5 - 10.5 mg/dL02/25/2025 1:00 PM [facility]EGFR Non-Race Towylfxsk99>=60 ml/min/1.73sq.m002/25/2025 1:00 PM [facility] Comment: eGFR not reported due to non-numeric value for Creatinine. Reported eGFR is based on the CKD-EPI 2020 equation that does not use a race coefficient. Specimen (Source)Anatomical Location / LateralityCollection Method / Volume Collection TimeReceived TimeBloodVenous blood / UnknownVenipuncture / Unknown 02/25/2025 12:21 PM EDT02/25/2025 12:41 PM EDT Narrative Authorizing ProviderResult TypeResult StatusSony Sharma [facility] BLOOD ORDERABLESFinal ResultPerforming OrganizationAddressCity/State/ZIP CodePhone Number [facility] [address] [place] [address], * CT pelvis without contrast (02/25/2025 10:56 AM EDT)Anatomical Region LateralityModalityMSK, Pelvis, Body Covera, MSK CoveraN/AComputed Tomography Specimen (Source)Anatomical Location / LateralityCollection Method / Volume Collection TimeReceived Time02/25/2025 11:07 AM EDT Narrative 02/25/2025 11:09 AM EDT STUDY: PELVIS CT WITHOUT CONTRAST CLINICAL HISTORY: [...] as low as reasonably achievable. Finalized by Jero Bedolla MD on 02/25/2025 11:09 AM Procedure Note Jero Bedolla MD - 02/25/2025 STUDY: PELVIS CT WITHOUT CONTRAST CLINICAL HISTORY: Pelvic pain COMPARISON: 10/23/2018 TECHNIQUE: CT pelvis was performed utilizing 5 mm axial reconstructionswithout contrast. Coronal and sagittal reformatted images were obtainedand reviewed. Automated exposure control was utilized. FINDINGS: Streak artifact resulting from lumbar fusion hardware with multilevel degenerative disc disease. There is degenerative changes of the bilateral sacroiliac joints with degenerative changes of the bilateral hips. Thereis no definitive acute process, fracture or dislocation. 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 Acute-appearing mildly displaced fracture of the right pubic bone andnon- displaced fracture of the right ischial tuberosity. . If the patient is unable to bear weight or if there is concern fornondisplaced hip fracture, consider correlation with MRI. IMPRESSION: 1. There is acute appearing mildly displaced fracture of the right pubicbone and nondisplaced fracture of the right ischial tuberosity. All CT scans at this facility use dose modulation, iterativereconstruction, and/or weight based dosing when appropriate to reduceradiation dose to as low as reasonably achievable. Finalized by Jero Bedolla MD on 02/25/2025 11:09 AM Authorizing ProviderResult TypeResult StatusMaxgina Zeng [facility] CT ORDERABLESFinal Result * CT lumbar spine without contrast (02/25/2025 10:56 AM EDT)Anatomical Region LateralityModalityMSK, Neuro, Spine, L-spine, Spine CoveraN/AComputed TomographySpecimen (Source)Anatomical Location / LateralityCollection Method / VolumeCollection TimeReceived Time02/25/2025 10:59 AM EDT Narrative 02/25/2025 11:02 AM EDT Study: Ct Lumbar spine History: Recent fall. Pain after trauma Technique: Axial images from the lower thoracic spine through the lumbar spine were obtained followed by sagittal and coronal reconstructed images. Findings/impression: ?? Prior L4 laminectomy. Transpedicular screws placed for [...] Rosario Stauffer MD on 02/25/2025 11:02 AM Procedure Note Rosario Stauffer MD - 02/25/2025 Study: Ct Lumbar spine History: Recent fall. Pain after trauma Technique: Axial images from the lower thoracic spine through the lumbarspine were obtained followed by sagittal and coronal reconstructedimages. Findings/impression: Prior L4 laminectomy. Transpedicular screws placed for fusion of L4-L5. Intervertebral disc spacing material is also noted. Hardware appears well incorporated into the bone and free of any acute complication. Bony fusionis noted along the left facets. Underlying levoscoliosis is appreciated. No CT evidence of acute vertebralbody fracture. No loss in height. Arthrosis is noted. No spondylolysis.The bone trabeculation is poor. This does hamper assessment ofnondisplaced fractures. If pain or concern persists consider follow-up MRimaging. Vacuum disc phenomenon with disc space narrowing is appreciated at L2-3 and L1-2.SI joints appear symmetric. The abdominal aorta is tortuous.Atherosclerotic disease is noted. Psoas muscles appear symmetric All CT scans at this facility use dose modulation, iterativereconstruction, and/or weight based dosing when appropriate to reduceradiation dose to as low as reasonably achievable. Finalized by Rosario Stauffer MD on 02/25/2025 11:02 AM Authorizing ProviderResult TypeResult StatusMaxduke [facility] Zachary Zeng DOIMG CT ORDERABLESFinal Result * CT brain without contrast (02/25/2025 10:53 AM EDT)Anatomical RegionLaterality ModalityNeuro, Head, Head and Neck, Neuro CoveraN/AComputed TomographySpecimen (Source)Anatomical Location / LateralityCollection Method / VolumeCollection TimeReceived Time02/25/2025 10:54 AM EDT Narrative 02/25/2025 10:[address] BRAIN WO CONT CLINICAL INFORMATION: fall, [...] preserved. No depressed calvarial fracture. IMPRESSION: * ??No acute intracranial findings by CT. Finalized by Hua Bradley MD on 02/25/2025 10:55 AM Procedure Note Hua Bradley MD - 02/25/2025 CT BRAIN WO CONT CLINICAL INFORMATION: fall, on plavix, no LOC COMPARISON: 05/16/2022. PROCEDURE: Routine CT Head obtained without contrast. All CT scans at this facilityuse dose modulation, iterative reconstruction, and/or weight based dosingwhen appropriate to reduce radiation dose to as low as reasonablyachievable. FINDINGS: No acute intracranial hemorrhage. No mass effect or midline shift. Noextra axial fluid collection. No hydrocephalus. Mathias-white differentiation is preserved. No depressed calvarial fracture. IMPRESSION: * No acute intracranial findings by CT. Finalized by Hua Bradley MD on 02/25/2025 10:55 AM Authorizing ProviderResult TypeResult StatusLa Luzgina Zeng [facility] CT ORDERABLESFinal Result * X-ray elbow right 2 views (02/25/2025 10:24 AM EDT)Anatomical RegionLaterality ModalityUpper Extremities, MSK, ElbowRightComputed RadiographySpecimen (Source)Anatomical Location / LateralityCollection Method / VolumeCollection TimeReceived Time02/25/2025 10:27 AM EDT Narrative 02/25/2025 10:28 AM EDT XR ELBOW RT 2 VWS HISTORY: Fall, right elbow pain and swelling COMPARISON: 12/01/2023 FINDINGS: No acute fracture or malalignment. Joint spaces are well-preserved. No joint effusion. Focal soft tissue swelling overlying the dorsal proximal ulna. IMPRESSION: * ??No acute osseous abnormality. * ??Focal soft tissue swelling over the proximal dorsal ulna. Approved by Resident: Segundo Sanford MD ??on 02/25/2025 10:27 AM Jero Gould MD have personally reviewed the image(s) and agree with and/or edited the report Finalized by Jero Bedolla MD on 02/25/2025 10:28 AM Procedure Note Jero Bedolla MD - 02/25/2025 XR ELBOW RT 2 VWS HISTORY: Fall, right elbow pain and swelling COMPARISON: 12/01/2023 FINDINGS: No acute fracture or malalignment. Joint spaces are well-preserved. Nojoint effusion. Focal soft tissue swelling overlying the dorsal proximalulna. IMPRESSION: * No acute osseous abnormality. * Focal soft tissue swelling over the proximal dorsal ulna. Approved by Resident: Segundo Sanford MD on 02/25/2025 10:27AM Jero Gould MD have personally reviewed the image(s) and agree withand/or edited the report Finalized by Jero Bedolla MD on 02/25/2025 10:28 AM Authorizing ProviderResult TypeResult StatusBipingina Zeng [facility] ORDERABLESFinal Result from Last 3 Months Insurance [id number] [place] [address] Advance Directives TypeDate RecordedPatient RepresentativeExplanationDNR Physician Order03/08/2025 9:37 AM * Full Code (Latest Code Status on File) Date ActivatedDate InactivatedComments02/25/2025 2:30 PM02/28/2025 8:50 PM * Full Code Date ActivatedDate InactivatedComments11/04/2018 3:48 AM11/05/2018 4:08 PM * Full Code Date ActivatedDate InactivatedComments10/30/2018 12:43 PM11/03/2018 7:11 PM Care Teams Team MemberRelationshipSpecialtyStart DateEnd Date Amrita Hooks MD [address], [place] [address] PCP - GeneralInternal Medicine07/27/24
--- OUTSIDE RECORDS SUMMARY | 2025-05-26 14:39 | XMS_ITS | Clinical Summary ---
Author Organization [facility] Address [address] [place] [address] Care Team Providers Care Sap Specialist Name Role Phone Anthony Egnle MD Primary Care Provider Allergies Active AllergyReactionsCriticalityNoted YcvyQnzziuzfPlnlccsul93/17/2022 Other reaction(s): Unknown Sulfa EdzixayroqqPgjnkza64/19/2023 Medications MedicationSigDispense QuantityRefillsLast FilledStart DateEnd DateStatus liothyronine (Cytomel) 5 MCG tablet Take 5 mcg by mouth in the morning.Active clonazePAM (KlonoPIN) 0.5 MG tablet Take 0.5 mg by mouth in the morning and 0.5 mg before bedtime.Active spironolactone (Aldactone) 25 MG tablet Take 25 mg by mouth in the morning.Active metoprolol tartrate (Lopressor) 25 MG tablet Take 25 mg by mouth in the morning and 25 mg before bedtime.Active levothyroxine (Synthroid, Levoxyl) 50 MCG tablet Take by mouth Daily before meals.Active clopidogrel (Plavix) 75 MG tablet Take 75 mg by mouth in the morning.Active ipratropium (Atrovent) 0.03 % nasal spray Administer 2 sprays into each nostril every 12 (twelve) hours.Active saccharomyces boulardii (Florastor) 250 MG capsule Take 250 mg by mouth in the morning and 250 mg before bedtime.Active Encounters DateTypeDepartmentCare GmvtLktrpkvlycc04/03/2025 2:15 PM ESTOffice Visit [facility] [address] [place] [phone] Gelacio Nolasco, KATTY Dermatophytosis of nail (Primary Dx); Dystrophic nail; Pain of right great toe05/11/2025amboo flowsheet [facility] [address] [place] [address] Gelacio Nolasco DPM 05/11/2025Travelfrom Last 3 Months Family History Medical HistoryRelationNameCommentsCancerFatherHeart diseaseFatherHypertension FatherHypertensionMotherMental illnessMotherStrokeMotherRelationNameStatus CommentsFatherDeceasedMotherDeceased Social History Tobacco UseTypesPacks/DayYears UsedDateSmoking Tobacco: FormerCigarettesQuit: 1968Smokeless Tobacco: Never Tobacco Cessation:Counseling Given: Not Answered Alcohol UseStandard Drinks/WeekCommentsYes0 (1 standard drink = 0.6 oz pure alcohol)1-2 drinks less than monthly in the past year, Caffeine intake: 1-2 cups per day, coffeeCommentsUnknownSex and Gender InformationValueDate RecordedSex Assigned at BirthNot on fileLegal MvyAxuetr73/15/2023 6:35 PM EDT Gender IdentityNot on fileSexual OrientationNot on file Last Filed Vital Signs Vital SignReadingTime TakenCommentsBlood Hiprcyna146/8909 12:00 PM EDT Pulse--Temperature--Respiratory Rate--Oxygen Saturation--Inhaled Oxygen Concentration--Ltyihz22.2 kg (124 lb)05/11/2025 2:17 PM UZJHhcjmu728.9 cm (5' 1 )05/11/2025 2:17 PM ESTBody Mass Index23.43107/12/2024 2:17 PM EST Plan of Treatment Not on file Insurance * Guarantor: Ayana Alves FAccount TypeRelation to PatientDate of BirthPhone Billing AddressPersonal/GedbqsAqpy1940 [address] [address] Care Teams Team MemberRelationshipSpecialtyStart DateEnd Date Anthony Engle MD [address] [address] PCP - GeneralPediatrics10/27/24
== END 2025-05-26 14:37 | disposition home or self-care (01) ==
LOC: PM 14:36
PROVIDERS: PCP Student in an Organized Health Care Education/Training Program; Visit Provider Nurse Practitioner
DX: M46.1 Sacroiliitis, not elsewhere classified (principal); M70.62 Trochanteric bursitis, left hip
CPT/HCPCS: G0463